=== PATIENT | female | born 1955 | race Caucasian/White ===

== ENCOUNTER → 2017-08-17 13:43 | Outpatient (CLI) | payer MEDICARE, SELFPAY ==
[2017-08-17 15:15] LABS: Amphetamine/Metha Screen,Urine Negative ng/mL (<1000); Barbiturates Screen,Urine Negative ng/mL (<200); Benzodiazepines Screen,Urine Negative ng/mL (200); Cannabinoid Screen,Urine Negative ng/mL (<50); Cocaine Screen,Urine Negative ng/g (<300); Methadone Screen,Urine Negative ng/mL (<300); Opiate Screen,Urine Positive ng/mL (<300); Phencyclidine Screen,Urine Negative ng/mL (<25)
[2017-08-26 13:13] LABS: Oxycodone (GC/MS) 2680 ng/mL (Cutoff=100)
[2017-08-27 17:06] LABS: Opiates Negative (Cutoff=100); Oxymorphone (GC/MS) 740 ng/mL (Cutoff=100)
== END ==
PROVIDERS: PCP Family Medicine; Visit Provider Anesthesiology
DX: Z79.899 Other long term (current) drug therapy (principal)
CPT/HCPCS: 80305; 80361; G0480

== ENCOUNTER → 2017-09-14 12:45 | Outpatient (POV) | payer MEDICARE, SELFPAY ==
[2017-09-14 12:59] VITALS: BP 128/77; PULSE 61; RESP 18; TEMP 36.2; O2SAT 96; BMI 49.8
--- NOTE | 2017-09-14 13:26 | HMH.PAINSOAP ---
[facility] Pain Management SOAP Note Subjective:: Patient is a pleasant 61-year-old white female who presents today to discuss medication refills. Patient is being treated for pain secondary to degenerative disc disease lumbar spine and bilateral knee arthritis. Patient has had a right knee replacement. Patient has also had back surgery in the past. She is currently being medically managed with Percocet 5 mg 1 p.o. 4 times daily. She states that this decreases her pain up to 70%. She denies any side effects to the medication. Patient is currently weaning herself off of her gabapentin due to involuntary twitching along with ineffectiveness towards her pain. Patient is also off her Lorazepam as of now. Patient is having a little bit of trouble at nighttime with sleeping. Patient has also weaned herself off her amitriptyline. Patient states that the medication helps make her more functional however she realizes that she will never be completely out of pain. Patient is also being seen for potential back surgery in the next several months. Patient rates her pain a 7 out of 10 today. Patient also states she has numbness and tingling in her toes and she has a podiatry appointment to evaluate this. ROS General: no recent weight change, no fever, no sleep disturbances Respiratory: no cough, no shortness of air, no recurring pulmonary infections Cardiovascular/Peripheral Vascular: No chest pain, No palpitations, no edema, no shortness of breath. Gastrointestinal: no incontinence, normal bowel movements reported Genitourinary: no incontinence Musculoskeletal: Back pain, bilateral knee pain Psychiatric: normal mood/ affect, Neurological: [denies weakness in extremities], [denies balance issues] Objective:: Physical Exam General: Alert and oriented x3, no acute distress, pleasant and cooperative, [on room air] Lungs: Resps E/U, Symmetrical chest expansion, Eyes: PERRL Musculoskeletal: Flexion and extension of lumbar spine somewhat guarded secondary to pain, deep tendon reflexes normal, strength in upper and lower extremities [5/5], [abnormal gait noted] Neurological: speech clear, it security administrator equal, no gross sensory deficits Assessment:: Degenerative disc disease of lumbar spine, lumbar postlaminectomy syndrome, fibromyalgia, chronic pain syndrome, bilateral knee arthritis. Plan:: We will refill her Percocet 5 mg 1 p.o. 4 times daily. Will give her 2 prescriptions today. Patient's [facility] #[id number] reviewed and appropriate. Patient had a UDS last month that was appropriate. We will continue to monitor compliance. We will have her follow-up with us in [address] Valderrama is reviewed her chart and agrees with this plan of care. Patient has been prescribed a controlled substance after being counseled on the medication, medication safety, and possible side effects. [facility]EN report has been obtained and reviewed prior to prescription and found to be appropriate. Opioid contract was reviewed and signed by the patient, and that they have agreed to all of the terms set forth by our compliance program. This note was dictated using voice recognition software and may contain errors or omissions
--- NOTE | 2017-09-14 13:30 | P.CONS_ITS ---
[facility] Pain Management SOAP Note Subjective:: Patient is a pleasant 61-year-old white female who presents today to discuss medication refills. Patient is being treated for pain secondary to degenerative disc disease lumbar spine and bilateral knee arthritis. Patient has had a right knee replacement. Patient has also had back surgery in the past. She is currently being medically managed with Percocet 5 mg 1 p.o. 4 times daily. She states that this decreases her pain up to 70%. She denies any side effects to the medication. Patient is currently weaning herself off of her gabapentin due to involuntary twitching along with ineffectiveness towards her pain. Patient is also off her Lorazepam as of now. Patient is having a little bit of trouble at nighttime with sleeping. Patient has also weaned herself off her amitriptyline. Patient states that the medication helps make her more functional however she realizes that she will never be completely out of pain. Patient is also being seen for potential back surgery in the next several months. Patient rates her pain a 7 out of 10 today. Patient also states she has numbness and tingling in her toes and she has a podiatry appointment to evaluate this. ROS General: no recent weight change, no fever, no sleep disturbances Respiratory: no cough, no shortness of air, no recurring pulmonary infections Cardiovascular/Peripheral Vascular: No chest pain, No palpitations, no edema, no shortness of breath. Gastrointestinal: no incontinence, normal bowel movements reported Genitourinary: no incontinence Musculoskeletal: Back pain, bilateral knee pain Psychiatric: normal mood/ affect, Neurological: [denies weakness in extremities], [denies balance issues] Objective:: Physical Exam General: Alert and oriented x3, no acute distress, pleasant and cooperative, [ on room air] Lungs: Resps E/U, Symmetrical chest expansion, Eyes: PERRL Musculoskeletal: Flexion and extension of lumbar spine somewhat guarded secondary to pain, deep tendon reflexes normal, strength in upper and lower extremities [5/5], [abnormal gait noted] Neurological: speech clear, pattern stamper equal, no gross sensory deficits Assessment:: Degenerative disc disease of lumbar spine, lumbar postlaminectomy syndrome, fibromyalgia, chronic pain syndrome, bilateral knee arthritis. Plan:: We will refill her Percocet 5 mg 1 p.o. 4 times daily. Will give her 2 prescriptions today. Patient's [facility] #[id number] reviewed and appropriate. Patient had a UDS last month that was appropriate. We will continue to monitor compliance. We will have her follow-up with us in [address] Valderrama is reviewed her chart and agrees with this plan of care. Patient has been prescribed a controlled substance after being counseled on the medication, medication safety, and possible side effects. HAVEN report has been obtained and reviewed prior to prescription and found to be appropriate. Opioid contract was reviewed and signed by the patient, and that they have agreed to all of the terms set forth by our compliance program. This note was dictated using voice recognition software and may contain errors or omissions
== END ==
PROVIDERS: Family Provider Family Medicine; PCP Family Medicine; Visit Provider Clinical Nurse Specialist Family Health
DX: M51.36 Other intervertebral disc degeneration, lumbar region (principal)
CPT/HCPCS: 99212

== ENCOUNTER → 2017-10-05 15:24 | Outpatient (REF) | payer MEDICARE, SELFPAY | LOC: LAB 15:24 | PROVIDERS: Visit Provider Podiatrist | DX: B35.1 Tinea unguium (principal) | CPT/HCPCS: 87102; 87206; 87220 ==

== ENCOUNTER → 2017-11-04 14:16 | Outpatient (CLI) | payer MEDICARE, SELFPAY ==
[2017-11-04 18:39] LABS: Amphetamine/Metha Screen,Urine Negative ng/mL (<1000); Barbiturates Screen,Urine Negative ng/mL (<200); Benzodiazepines Screen,Urine Negative ng/mL (200); Cannabinoid Screen,Urine Negative ng/mL (<50); Cocaine Screen,Urine Negative ng/g (<300); Methadone Screen,Urine Negative ng/mL (<300); Opiate Screen,Urine Positive ng/mL (<300); Phencyclidine Screen,Urine Negative ng/mL (<25)
[2017-11-12 13:15] LABS: Oxycodone (GC/MS) 2040 ng/mL (Cutoff=100)
[2017-11-12 19:23] LABS: Opiates Negative (Cutoff=100); Oxymorphone (GC/MS) 725 ng/mL (Cutoff=100)
== END ==
PROVIDERS: Visit Provider Anesthesiology
DX: Z79.899 Other long term (current) drug therapy (principal)
CPT/HCPCS: 80305; 80361; 80365; G0480

== ENCOUNTER → 2017-11-29 13:37 | Outpatient (POV) | payer MEDICARE, SELFPAY ==
[2017-11-29 13:51] VITALS: BP 136/70; PULSE 62; RESP 20; TEMP 36.7; O2SAT 99; BMI 49.8
--- NOTE | 2017-11-29 15:33 | HMH.PAINSOAP ---
[facility] Pain Management SOAP Note Subjective:: She is a pleasant 61-year-old white female who presents today to discuss medication refills. Patient is being treated for pain secondary to degenerative disc disease of the lumbar spine and bilateral knee arthritis. Patient is currently being medically managed with Percocet 5 mg 1 p.o. 4 times daily. She states this decreases her pain up to 70%. She denies any side effects of medication. Patient has weaned herself off her gabapentin and her Lorazepam. Patient states the gabapentin caused involuntary twitching. Patient has tried and failed Cymbalta, amitriptyline, anti-inflammatories, medication. Patient rates her pain a 6 out of 10 today. Patient states she is having an acute gout flare. Patient has notable red swollen joints of the thumb. Patient states she has a history of gout. Patient is unable to get her primary care physician to have this evaluated. ROS General: no recent weight change, no fever, no sleep disturbances Respiratory: no cough, no shortness of air, no recurring pulmonary infections Cardiovascular/Peripheral Vascular: No chest pain, No palpitations, no edema, no shortness of breath. Gastrointestinal: no incontinence, normal bowel movements reported Genitourinary: no incontinence Musculoskeletal: Gout, back pain, bilateral knee pain Psychiatric: normal mood/ affect, [denies depression], [denies anxiety] Neurological: [denies weakness in extremities], [denies balance issues] Objective:: Physical Exam General: Alert and oriented x3, no acute distress, pleasant and cooperative, [on room air] Lungs: Resps E/U, Symmetrical chest expansion, Eyes: PERRL Musculoskeletal: Flexion and extension of lumbar spine somewhat guarded secondary to pain, deep tendon reflexes normal, strength in upper and lower extremities [5/5], [abnormal gait noted], noted red swollen joints of the left thumb. Neurological: speech clear, washroom operator equal, no gross sensory deficits Assessment:: Gout, degenerative disc disease of the lumbar spine, post lumbar postlaminectomy syndrome, fibromyalgia, chronic pain syndrome, bilateral knee arthritis Plan:: We will start the patient on Lyrica 75 mg 1 p.o. twice daily. We will start her with a 2 week prescription and see if this is effective for pain. She has tried and failed gabapentin, amitriptyline, Cymbalta. Patient had side effects to gabapentin. We will also refill her Percocet 5 mg 1 p.o. 4 times daily. Will give her 2 prescriptions today. Patient's [facility] #[id number] reviewed and appropriate. Patient's UDS reviewed and appropriate. We will follow-up with the patient in 3 months and we will reassess her symptoms at that time. Dr. Valderrama has reviewed this chart and agrees with this plan of care. We will also call her in colchicine 2 tabs of 0.6 mg now and then we will repeat 1 tab 1 hour later. No refills patient is also on allopurinol for gout. Patient has been prescribed a controlled substance after being counseled on the medication, medication safety, and possible side effects. HAVEN report has been obtained and reviewed prior to prescription and found to be appropriate. Opioid contract was reviewed and signed by the patient, and that they have agreed to all of the terms set forth by our compliance program. This note was dictated using voice recognition software and may contain errors or omissions
--- NOTE | 2017-11-29 15:37 | P.CONS_ITS ---
[facility] Pain Management SOAP Note Subjective:: She is a pleasant 61-year-old white female who presents today to discuss medication refills. Patient is being treated for pain secondary to degenerative disc disease of the lumbar spine and bilateral knee arthritis. Patient is currently being medically managed with Percocet 5 mg 1 p.o. 4 times daily. She states this decreases her pain up to 70%. She denies any side effects of medication. Patient has weaned herself off her gabapentin and her Lorazepam. Patient states the gabapentin caused involuntary twitching. Patient has tried and failed Cymbalta, amitriptyline, anti-inflammatories, medication. Patient rates her pain a 6 out of 10 today. Patient states she is having an acute gout flare. Patient has notable red swollen joints of the thumb. Patient states she has a history of gout. Patient is unable to get her primary care physician to have this evaluated. ROS General: no recent weight change, no fever, no sleep disturbances Respiratory: no cough, no shortness of air, no recurring pulmonary infections Cardiovascular/Peripheral Vascular: No chest pain, No palpitations, no edema, no shortness of breath. Gastrointestinal: no incontinence, normal bowel movements reported Genitourinary: no incontinence Musculoskeletal: Gout, back pain, bilateral knee pain Psychiatric: normal mood/ affect, [denies depression], [denies anxiety] Neurological: [denies weakness in extremities], [denies balance issues] Objective:: Physical Exam General: Alert and oriented x3, no acute distress, pleasant and cooperative, [ on room air] Lungs: Resps E/U, Symmetrical chest expansion, Eyes: PERRL Musculoskeletal: Flexion and extension of lumbar spine somewhat guarded secondary to pain, deep tendon reflexes normal, strength in upper and lower extremities [5/5], [abnormal gait noted], noted red swollen joints of the left thumb. Neurological: speech clear, plane tableman equal, no gross sensory deficits Assessment:: Gout, degenerative disc disease of the lumbar spine, post lumbar postlaminectomy syndrome, fibromyalgia, chronic pain syndrome, bilateral knee arthritis Plan:: We will start the patient on Lyrica 75 mg 1 p.o. twice daily. We will start her with a 2 week prescription and see if this is effective for pain. She has tried and failed gabapentin, amitriptyline, Cymbalta. Patient had side effects to gabapentin. We will also refill her Percocet 5 mg 1 p.o. 4 times daily. Will give her 2 prescriptions today. Patient's [facility] #[id number] reviewed and appropriate. Patient's UDS reviewed and appropriate. We will follow-up with the patient in 3 months and we will reassess her symptoms at that time. Dr. Valderrama has reviewed this chart and agrees with this plan of care. We will also call her in colchicine 2 tabs of 0.6 mg now and then we will repeat 1 tab 1 hour later. No refills patient is also on allopurinol for gout. Patient has been prescribed a controlled substance after being counseled on the medication, medication safety, and possible side effects. HAVEN report has been obtained and reviewed prior to prescription and found to be appropriate. Opioid contract was reviewed and signed by the patient, and that they have agreed to all of the terms set forth by our compliance program. This note was dictated using voice recognition software and may contain errors or omissions
== END ==
PROVIDERS: Family Provider Family Medicine; PCP Family Medicine; Visit Provider Clinical Nurse Specialist Family Health
DX: M17.0 Bilateral primary osteoarthritis of knee (principal); M54.16 Radiculopathy, lumbar region
CPT/HCPCS: 99212

== ENCOUNTER → 2018-01-24 13:53 | Outpatient (POV) | payer MEDICARE, SELFPAY ==
[2018-01-24 14:12] VITALS: BP 131/82; PULSE 57; RESP 18; O2SAT 98; BMI 49.8
--- NOTE | 2018-01-24 15:49 | HMH.PAINSOAP ---
[facility] Pain Management SOAP Note Subjective:: Is a pleasant 62 year white female who presents today to discuss medication refills. Patient is being treated for pain secondary to degenerative disc disease of lumbar spine and bilateral knee arthritis. Patient is currently being medically managed with Percocet 5 mg 1 p.o. 4 times daily. She states that this helps up to 60%. Patient was tried on a trial run of Lyrica and did extremely well with it however her insurance would not cover the medication. Patient has tried and failed gabapentin, Cymbalta, amitriptyline, anti-inflammatories and other medications. Patient rates her pain a 5 out of 10 today. ROS General: no recent weight change, no fever, no sleep disturbances Respiratory: no cough, no shortness of air, no recurring pulmonary infections Cardiovascular/Peripheral Vascular: No chest pain, No palpitations, no edema, no shortness of breath. Gastrointestinal: no incontinence, normal bowel movements reported Genitourinary: no incontinence Musculoskeletal: Back pain, bilateral knee pain Psychiatric: normal mood/ affect Neurological: [denies weakness in extremities], [denies balance issues] Objective:: Physical Exam General: Alert and oriented x3, no acute distress, pleasant and cooperative, [on room air] Lungs: Resps E/U, Symmetrical chest expansion Eyes: PERRL Musculoskeletal: Flexion and extension of lumbar spine somewhat guarded secondary to pain, deep tendon reflexes normal, strength in upper and lower extremities [5/5], [abnormal gait noted] Neurological: speech clear, steward/stewardess night equal, no gross sensory deficits Assessment:: Degenerative disc disease lumbar spine with postlaminectomy syndrome, fibromyalgia, chronic pain syndrome, bilateral knee arthritis Plan:: Patient is going to look into financial assistance as far as her Lyrica if she does get approved for that we will call in Lyrica 75 mg 1 p.o. twice daily for her I believe that this would be good given the efficacy of the medication. We will refill her Percocet 5 mg 1 p.o. 4 times daily we will give her 2 prescriptions today. Patient's [facility] #[id number] reviewed and appropriate. Patient's urine drug screen has been appropriate in the past. Patient denies any side effects to this medication. Dr. Valderrama has reviewed this chart and agrees with this plan of care. We will follow-up with this patient in 2 months. Patient and I did speak briefly on neuro stimulation. Patient has been prescribed a controlled substance after being counseled on the medication, medication safety, and possible side effects. HAVEN report has been obtained and reviewed prior to prescription and found to be appropriate. Opioid contract was reviewed and signed by the patient, and that they have agreed to all of the terms set forth by our compliance program. This note was dictated using voice recognition software and may contain errors or omissions
--- NOTE | 2018-01-24 15:53 | P.CONS_ITS ---
[facility] Pain Management SOAP Note Subjective:: Is a pleasant 62 year white female who presents today to discuss medication refills. Patient is being treated for pain secondary to degenerative disc disease of lumbar spine and bilateral knee arthritis. Patient is currently being medically managed with Percocet 5 mg 1 p.o. 4 times daily. She states that this helps up to 60%. Patient was tried on a trial run of Lyrica and did extremely well with it however her insurance would not cover the medication. Patient has tried and failed gabapentin, Cymbalta, amitriptyline, anti- inflammatories and other medications. Patient rates her pain a 5 out of 10 today. ROS General: no recent weight change, no fever, no sleep disturbances Respiratory: no cough, no shortness of air, no recurring pulmonary infections Cardiovascular/Peripheral Vascular: No chest pain, No palpitations, no edema, no shortness of breath. Gastrointestinal: no incontinence, normal bowel movements reported Genitourinary: no incontinence Musculoskeletal: Back pain, bilateral knee pain Psychiatric: normal mood/ affect Neurological: [denies weakness in extremities], [denies balance issues] Objective:: Physical Exam General: Alert and oriented x3, no acute distress, pleasant and cooperative, [ on room air] Lungs: Resps E/U, Symmetrical chest expansion Eyes: PERRL Musculoskeletal: Flexion and extension of lumbar spine somewhat guarded secondary to pain, deep tendon reflexes normal, strength in upper and lower extremities [5/5], [abnormal gait noted] Neurological: speech clear, strategic marketing manager equal, no gross sensory deficits Assessment:: Degenerative disc disease lumbar spine with postlaminectomy syndrome, fibromyalgia, chronic pain syndrome, bilateral knee arthritis Plan:: Patient is going to look into financial assistance as far as her Lyrica if she does get approved for that we will call in Lyrica 75 mg 1 p.o. twice daily for her I believe that this would be good given the efficacy of the medication. We will refill her Percocet 5 mg 1 p.o. 4 times daily we will give her 2 prescriptions today. Patient's [facility] #[id number] reviewed and appropriate. Patient's urine drug screen has been appropriate in the past. Patient denies any side effects to this medication. Dr. Valderrama has reviewed this chart and agrees with this plan of care. We will follow-up with this patient in 2 months. Patient and I did speak briefly on neuro stimulation. Patient has been prescribed a controlled substance after being counseled on the medication, medication safety, and possible side effects. HAVEN report has been obtained and reviewed prior to prescription and found to be appropriate. Opioid contract was reviewed and signed by the patient, and that they have agreed to all of the terms set forth by our compliance program. This note was dictated using voice recognition software and may contain errors or omissions
== END ==
PROVIDERS: Family Provider Family Medicine; PCP Family Medicine; Visit Provider Clinical Nurse Specialist Family Health
DX: M17.0 Bilateral primary osteoarthritis of knee; M96.1 Postlaminectomy syndrome, not elsewhere classified
CPT/HCPCS: 99212

== ENCOUNTER → 2018-03-28 12:53 | Outpatient (POV) | payer MEDICARE, SELFPAY ==
[2018-03-28 13:16] VITALS: BP 138/61; PULSE 60; RESP 18; O2SAT 98; BMI 49.6
--- NOTE | 2018-03-28 14:38 | HMH.PAINSOAP ---
[facility] Pain Management SOAP Note Subjective:: Patient is a pleasant 62-year-old white female who presents today for medication refills. Patient is being treated for pain secondary to degenerative disc disease of the lumbar spine and bilateral knee arthritis. Patient is being managed with Percocet 5 mg 1 p.o. 4 times daily. He states it helps up to 70%. Patient had a trial of Lyrica and did extremely well with it. She has been approved for the Lyrica assistance program. Patient has tried and failed gabapentin, Cymbalta, amitriptyline, anti-inflammatories and other medications. She rates her pain a 6 out of 10 today. Patient's [facility] #[id number] reviewed and appropriate. Patient states she does take Tylenol sometimes as well. ROS General: no recent weight change, no fever, no sleep disturbances Respiratory: no cough, no shortness of air, no recurring pulmonary infections Cardiovascular/Peripheral Vascular: No chest pain, No palpitations, no edema, no shortness of breath. Gastrointestinal: no incontinence, normal bowel movements reported Genitourinary: no incontinence Musculoskeletal: Back pain, leg pain, bilateral knee pain Psychiatric: normal mood/ affect, Neurological: [denies weakness in extremities], [denies balance issues] Objective:: Physical Exam General: Alert and oriented x3, no acute distress, pleasant and cooperative, [on room air] Lungs: Resps E/U, Symmetrical chest expansion, Eyes: PERRL Musculoskeletal: Flexion and extension of lumbar spine somewhat guarded secondary to pain, deep tendon reflexes normal, strength in upper and lower extremities [5/5], [abnormal gait noted] Neurological: speech clear, sexual assault counselor equal, no gross sensory deficits Assessment:: Degenerative disc disease of the lumbar spine with postlaminectomy syndrome, fibromyalgia, chronic pain syndrome, bilateral knee arthritis Plan:: We will refill the patient's Percocet 5 mg 1 p.o. 4 times daily and give HER-2 months worth of prescriptions. We will also call in Lyrica 75 mg 1 p.o. twice daily for the patient we will give her several refills on this due to the assistance program. I will follow-up with the patient in [address] Valderrama has reviewed this chart and agrees with this plan of care. Patient has been prescribed a controlled substance after being counseled on the medication, medication safety, and possible side effects. HAVEN report has been obtained and reviewed prior to prescription and found to be appropriate. Opioid contract was reviewed and signed by the patient, and that they have agreed to all of the terms set forth by our compliance program. This note was dictated using voice recognition software and may contain errors or omissions
--- NOTE | 2018-03-28 14:41 | P.CONS_ITS ---
[facility] Pain Management SOAP Note Subjective:: Patient is a pleasant 62-year-old white female who presents today for medication refills. Patient is being treated for pain secondary to degenerative disc disease of the lumbar spine and bilateral knee arthritis. Patient is being managed with Percocet 5 mg 1 p.o. 4 times daily. He states it helps up to 70%. Patient had a trial of Lyrica and did extremely well with it. She has been approved for the Lyrica assistance program. Patient has tried and failed gabapentin, Cymbalta, amitriptyline, anti-inflammatories and other medications. She rates her pain a 6 out of 10 today. Patient's HAVEN #[id number] reviewed and appropriate. Patient states she does take Tylenol sometimes as well. ROS General: no recent weight change, no fever, no sleep disturbances Respiratory: no cough, no shortness of air, no recurring pulmonary infections Cardiovascular/Peripheral Vascular: No chest pain, No palpitations, no edema, no shortness of breath. Gastrointestinal: no incontinence, normal bowel movements reported Genitourinary: no incontinence Musculoskeletal: Back pain, leg pain, bilateral knee pain Psychiatric: normal mood/ affect, Neurological: [denies weakness in extremities], [denies balance issues] Objective:: Physical Exam General: Alert and oriented x3, no acute distress, pleasant and cooperative, [on room air] Lungs: Resps E/U, Symmetrical chest expansion, Eyes: PERRL Musculoskeletal: Flexion and extension of lumbar spine somewhat guarded sec ondary to pain, deep tendon reflexes normal, strength in upper and lower extremities [5/5], [abnormal gait noted] Neurological: speech clear, powerhouse mechanic helper equal, no gross sensory deficits Assessment:: Degenerative disc disease of the lumbar spine with postlaminectomy syndrome, fibromyalgia, chronic pain syndrome, bilateral knee arthritis Plan:: We will refill the patient's Percocet 5 mg 1 p.o. 4 times daily and give HER-2 months worth of prescriptions. We will also call in Lyrica 75 mg 1 p.o. twice daily for the patient we will give her several refills on this due to the assistance program. I will follow-up with the patient in [address] Valderrama has reviewed this chart and agrees with this plan of care. Patient has been prescribed a controlled substance after being counseled on the medication, medication safety, and possible side effects. HAVEN report has been obtained and reviewed prior to prescription and found to be appropriate. Opioid contract was reviewed and signed by the patient, and that they have agreed to all of the terms set forth by our compliance program. This note was dictated using voice recognition software and may contain errors or omissions
== END ==
PROVIDERS: Family Provider Family Medicine; PCP Family Medicine; Visit Provider Clinical Nurse Specialist Family Health
DX: M51.36 Other intervertebral disc degeneration, lumbar region (principal); M96.1 Postlaminectomy syndrome, not elsewhere classified; M79.7 Fibromyalgia; G89.4 Chronic pain syndrome; M17.0 Bilateral primary osteoarthritis of knee
CPT/HCPCS: 99213

== ENCOUNTER → 2018-05-31 16:21 | Outpatient (CLI) | payer MEDICARE, SELFPAY ==
[2018-05-31 16:56] LABS: Amphetamine/Metha Screen,Urine Negative ng/mL (<1000); Barbiturates Screen,Urine Negative ng/mL (<200); Benzodiazepines Screen,Urine Negative ng/mL (<200); Cannabinoid Screen,Urine Negative ng/mL (<50); Cocaine Screen,Urine Negative ng/mL (<300); Methadone Screen,Urine Negative ng/mL (<300); Opiate Screen,Urine Positive ng/mL (<300); Phencyclidine Screen,Urine Negative ng/mL (<25)
[2018-06-08 11:14] LABS: Oxycodone (GC/MS) 454 ng/mL (Cutoff=100)
[2018-06-08 12:53] LABS: Opiates Negative (Cutoff=100); Oxymorphone (GC/MS) 209 ng/mL (Cutoff=100)
== END ==
PROVIDERS: Visit Provider Anesthesiology
DX: Z79.899 Other long term (current) drug therapy (principal)
CPT/HCPCS: 80305; 80361; 80365; G0480

== ENCOUNTER → 2018-06-27 13:36 | Outpatient (POV) | payer MEDICARE, SELFPAY ==
[2018-06-27 14:18] VITALS: BP 141/60; PULSE 60; RESP 18; O2SAT 98; BMI 49.2
--- NOTE | 2018-06-27 14:35 | P.CONS_ITS ---
[facility] Pain Management SOAP Note Subjective:: Patient is a pleasant 62-year-old white female who presents today for medication refills. She is being treated for pain secondary to degenerative disc disease lumbar spine with lumbar radiculopathy and bilateral knee arthritis. She is being managed with Percocet 5 mg 1 p.o. 4 times daily. She is also been on Lyrica and has done extremely well with it and has recently been accepted to their Lyrica assistance program. Patient was on 75 mg 1 p.o. twice daily and did well with this. She rates her pain today an 8 out of 10 she states is increased due to her Lipitor use and the weather. ROS General: no recent weight change, no fever, no sleep disturbances Respiratory: no cough, no shortness of air, no recurring pulmonary infections Cardiovascular/Peripheral Vascular: No chest pain, No palpitations, no edema, no shortness of breath. Gastrointestinal: no incontinence, normal bowel movements reported Genitourinary: no incontinence Musculoskeletal: Back pain, leg pain, knee pain Psychiatric: normal mood/ affect, Neurological: [denies weakness in extremities], [denies balance issues] Objective:: Physical Exam General: Alert and oriented x3, no acute distress, pleasant and cooperative, [on room air] Lungs: Resps E/U, Symmetrical chest expansion, Eyes: PERRL Musculoskeletal: Flexion and extension of lumbar spine somewhat guarded secondary to pain, deep tendon reflexes normal, strength in upper and lower extremities [5/5], [abnormal gait noted] Neurological: speech clear, cleat layer equal, no gross sensory deficits Assessment:: Degenerative disc disease lumbar spine with lumbar radiculopathy and post laminectomy syndrome, fibromyalgia, chronic pain syndrome, bilateral knee arthritis Plan:: We will refill the patient's Percocet 5 mg 1 p.o. 4 times daily and give her 2 months worth of prescriptions we will also give her Lyrica 75 mg 1 p.o. twice daily. I will follow-up with the patient in 3 months and reassess her symptoms at that time. Patient's been instructed to call the office if she has any issues prior to her next appointment. Dr. Valderrama is reviewed this chart and agrees with this plan of care. Patient has been prescribed a controlled substance after being counseled on the medication, medication safety, and possible side effects. HAVEN report has been obtained and reviewed prior to prescription and found to be appropriate. Opioid contract was reviewed and signed by the patient, and that they have agreed to all of the terms set forth by our compliance program. This note was dictated using voice recognition software and may contain errors or omissions
== END ==
PROVIDERS: PCP Family Medicine; Visit Provider Clinical Nurse Specialist Family Health
DX: M51.16 Intervertebral disc disorders with radiculopathy, lumbar region (principal); M96.1 Postlaminectomy syndrome, not elsewhere classified; M79.18 Myalgia, other site; G89.4 Chronic pain syndrome; M17.0 Bilateral primary osteoarthritis of knee
CPT/HCPCS: 99213

== ENCOUNTER → 2018-09-01 10:04 | Outpatient (CLI) | payer MEDICARE, SELFPAY ==
[2018-09-01 14:33] LABS: Amphetamine/Metha Screen,Urine Negative ng/mL (<1000); Barbiturates Screen,Urine Negative ng/mL (<200); Benzodiazepines Screen,Urine Negative ng/mL (<200); Cannabinoid Screen,Urine Negative ng/mL (<50); Cocaine Screen,Urine Negative ng/mL (<300); Methadone Screen,Urine Negative ng/mL (<300); Opiate Screen,Urine Positive ng/mL (<300); Phencyclidine Screen,Urine Negative ng/mL (<25)
[2018-09-06 10:14] LABS: Oxycodone (GC/MS) 1500 ng/mL (Cutoff=100)
[2018-09-06 10:38] LABS: Opiates Negative (Cutoff=100); Oxymorphone (GC/MS) 479 ng/mL (Cutoff=100)
== END ==
PROVIDERS: Visit Provider Clinical Nurse Specialist Family Health
DX: Z79.899 Other long term (current) drug therapy (principal)
CPT/HCPCS: 80305; 80361; 80365; G0480

== ENCOUNTER → 2018-09-19 13:46 | Outpatient (POV) | payer MEDICARE, SELFPAY ==
[2018-09-19 14:03] VITALS: BP 122/45; PULSE 59; RESP 18; O2SAT 98; BMI 49.6
--- NOTE | 2018-09-19 14:19 | HMH.PAINSOAP ---
[facility] Pain Management SOAP Note Subjective:: Patient is a very pleasant 62-year-old white female who presents today for medication refills. She is being treated for pain secondary to degenerative disc disease lumbar spine with lumbar radiculopathy and bilateral knee arthritis. She is being managed with Percocet 5 mg 1 p.o. 4 times daily. Patient states that helps with her pain in the back however the burning in her feet is gotten much worse. She is recently undergone a nerve conduction study. We do not have any results of that yet. Patient has had good success with Lyrica in the past. Patient would like to be accepted to the Lyrica distance program. She was on Lyrica 75 mg 1 p.o. twice daily. She rates the pain a 5 out of 10 today. ROS General: no recent weight change, no fever, no sleep disturbances Respiratory: no cough, no shortness of air, no recurring pulmonary infections Cardiovascular/Peripheral Vascular: No chest pain, No palpitations, no edema, no shortness of breath. Gastrointestinal: no incontinence, normal bowel movements reported Genitourinary: no incontinence Musculoskeletal: Back pain, new leg pain, knee pain, foot pain Psychiatric: normal mood/ affect Neurological: [denies weakness in extremities], [denies balance issues] Objective:: Physical Exam General: Alert and oriented x3, no acute distress, pleasant and cooperative, [on room air] Lungs: Resps E/U, Symmetrical chest expansion, Eyes: PERRL Musculoskeletal: Flexion and extension of lumbar spine somewhat guarded secondary to pain, deep tendon reflexes normal, strength in upper and lower extremities [5/5], [abnormal gait noted] Neurological: speech clear, 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 4 times daily and give her 2 months worth of medication. We will also give her Lyrica 75 mg 1 p.o. twice daily. We will follow-up with the patient in 3 months and reassess her symptoms at that time she is been instructed to call the office if she has any issues prior to her next appointment. Patient has been prescribed a controlled substance after being counseled on the medication, medication safety, and possible side effects. HAVEN report has been obtained and reviewed prior to prescription and found to be appropriate. Opioid contract was reviewed and signed by the patient, and that they have agreed to all of the terms set forth by our compliance program. Dr. Valderrama has reviewed this note and agrees with this plan of care. This note was dictated using voice recognition software and may contain errors or omissions
== END ==
PROVIDERS: PCP Family Medicine; Visit Provider Clinical Nurse Specialist Family Health
DX: M51.16 Intervertebral disc disorders with radiculopathy, lumbar region (principal); M96.1 Postlaminectomy syndrome, not elsewhere classified; M79.7 Fibromyalgia; G89.4 Chronic pain syndrome; M13.862 Other specified arthritis, left knee; M13.861 Other specified arthritis, right knee
CPT/HCPCS: 99213

== ENCOUNTER → 2018-11-08 09:03 | Outpatient (CLI) | payer MEDICARE, SELFPAY ==
--- NOTE | 2018-11-08 09:09 | XR_ITS ---
XR foot wt bearing RT 3V HISTORY: ITS.REASON: pain ORDERING PHYSICIAN: Sada Villalobos DPM PATIENT AGE: 62 years COMPARISON: None FINDINGS: There are mild osteoarthritic changes of the naviculocuneiform joint. Nonspecific cortical lucency is noted in the mid shaft of the first metatarsal. No fracture or dislocation. There is a prominent calcaneal spur at 8 mm. IMPRESSION: 1. Mild degenerative change. 2. Nonspecific cortical lucency of the mid shaft of the first metatarsal medially and laterally.
--- NOTE | 2018-11-08 09:09 | XR_ITS ---
XR foot wt bearing LT 3V HISTORY: ITS.REASON: pain ORDERING PHYSICIAN: Sada Villalobos DPM PATIENT AGE: 62 years COMPARISON: None FINDINGS: No fracture or dislocation. No lytic or blastic change. There is normal mineralization.. Bone spurs present at the plantar surface of the calcaneus at 7 mm. Well-circumscribed calcific densities are present at the Achilles insertion consistent with enthesophytes. There is some mild thickening of the Achilles tendon proximal to this area. IMPRESSION: 1. No acute finding. 2. Mild thickening of the Achilles tendon with fragmented enthesophyte at the Achilles insertion which could be seen with tendinitis
== END ==
PROVIDERS: PCP Family Medicine; Visit Provider Podiatrist
DX: M79.672 Pain in left foot (principal); M79.671 Pain in right foot
CPT/HCPCS: 73630

== ENCOUNTER → 2018-12-27 10:36 | Outpatient (POV) | payer MEDICARE, SELFPAY ==
[2018-12-27 10:38] VITALS: BP 125/58; PULSE 90; RESP 18; O2SAT 98; BMI 42.9
--- NOTE | 2018-12-27 11:02 | HMH.PAINSOAP ---
[facility] Pain Management SOAP Note Subjective:: Patient is a pleasant 62-year-old white female who presents today for medication refills. She is being treated for pain secondary to degenerative disc disease lumbar spine with lumbar radiculopathy and bilateral knee arthritis. She has been managed with Percocet 5 mg 1 p.o. 4 times daily. Patient denies any side effects to medications. The patient was also prescribed Lyrica 75 mg 1 p.o. twice daily. She is currently working with the Lyrica assistance program. Rates her pain a 8 out of 10 today. The patient says that her knee pain is somewhat better, but it is more back pain today. She also says that she has increased burning in her feet which is gotten much worse since she has been able to get her Lyrica refilled. She says she has tried gabapentin in the past and it has not been effective. She is continuing a home stretching program. [facility] #[id number] has been reviewed and is appropriate. ROS General: no recent weight change, no fever, no sleep disturbances Respiratory: no cough, no shortness of air, no recurring pulmonary infections Cardiovascular/Peripheral Vascular: No chest pain, No palpitations, no edema, no shortness of breath. Gastrointestinal: no incontinence, normal bowel movements reported Genitourinary: no incontinence Musculoskeletal: Back pain, knee pain Psychiatric: normal mood/ affect, [denies depression], [denies anxiety] Neurological: [denies weakness in extremities], [denies balance issues] Objective:: Physical Exam General: Alert and oriented x3, no acute distress, pleasant and cooperative, [on room air] Lungs: Resps E/U, Symmetrical chest expansion, Eyes: PERRL Musculoskeletal: Flexion and extension of lumbar spine spine somewhat guarded secondary to pain, deep tendon reflexes normal, strength in upper and lower extremities [5/5], [abnormal gait noted] Neurological: speech clear, gun stock 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 4 times daily and give her 2 months worth of medication. She can filler picker her third month in the interim. We will also order the patient Voltaren gel 1% 4 g topically twice daily. We will schedule her for an appointment in 3 months. She has been instructed to call the office if she has any concerns prior to her next appointment. Patient has been prescribed a controlled substance after being counseled on the medication, medication safety, and possible side effects. HAVEN report has been obtained and reviewed prior to prescription and found to be appropriate. Opioid contract was reviewed and signed by the patient, and that they have agreed to all of the terms set forth by our compliance program. Dr. Valderrama has reviewed this note and agrees with this plan of care. This note was dictated using voice recognition software and may contain errors or omissions
--- NOTE | 2018-12-27 11:06 | P.CONS_ITS ---
[facility] Pain Management SOAP Note Subjective:: Patient is a pleasant 62-year-old white female who presents today for medication refills. She is being treated for pain secondary to degenerative disc disease lumbar spine with lumbar radiculopathy and bilateral knee arthritis. She has been managed with Percocet 5 mg 1 p.o. 4 times daily. Patient denies any side effects to medications. The patient was also prescribed Lyrica 75 mg 1 p.o. twice daily. She is currently working with the Lyrica assistance program. Rates her pain a 8 out of 10 today. The patient says that her knee pain is somewhat better, but it is more back pain today. She also says that she has increased burning in her feet which is gotten much worse since she has been able to get her Lyrica refilled. She says she has tried gabapentin in the past and it has not been effective. She is continuing a home stretching program. [facility] #[id number] has been reviewed and is appropriate. ROS General: no recent weight change, no fever, no sleep disturbances Respiratory: no cough, no shortness of air, no recurring pulmonary infections Cardiovascular/Peripheral Vascular: No chest pain, No palpitations, no edema, no shortness of breath. Gastrointestinal: no incontinence, normal bowel movements reported Genitourinary: no incontinence Musculoskeletal: Back pain, knee pain Psychiatric: normal mood/ affect, [denies depression], [denies anxiety] Neurological: [denies weakness in extremities], [denies balance issues] Objective:: Physical Exam General: Alert and oriented x3, no acute distress, pleasant and cooperative, [on room air] Lungs: Resps E/U, Symmetrical chest expansion, Eyes: PERRL Musculoskeletal: Flexion and extension of lumbar spine spine somewhat guarded secondary to pain, deep tendon reflexes normal, strength in upper and lower extremities [5/5], [abnormal gait noted] Neurological: speech clear, payroll assistant equal, no gross sensory deficits Assessment:: Degenerative disc disease lumbar spine with lumbar radiculopathy and postlaminectomy syndrome, fibromyalgia, chronic pain syndrome, bilateral knee arthritis, neuropathy Plan:: We will refill the patient's Percocet 5 mg 1 p.o. 4 times daily and give her 2 months worth of medication. She can lease picker her third month in the interim. We will also order the patient Voltaren gel 1% 4 g topically twice daily. We will schedule her for an appointment in 3 months. She has been instructed to call the office if she has any concerns prior to her next appointment. Patient has been prescribed a controlled substance after being counseled on the medication, medication safety, and possible side effects. HAVEN report has been obtained and reviewed prior to prescription and found to be appropriate. Opioid contract was reviewed and signed by the patient, and that they have agreed to all of the terms set forth by our compliance program. Dr. Valderrama has reviewed this note and agrees with this plan of care. This note was dictated using voice recognition software and may contain errors or omissions
== END ==
PROVIDERS: PCP Psychiatry & Neurology Psychiatry; Visit Provider Clinical Nurse Specialist Family Health
DX: M51.16 Intervertebral disc disorders with radiculopathy, lumbar region (principal); M96.1 Postlaminectomy syndrome, not elsewhere classified; M79.18 Myalgia, other site; G89.29 Other chronic pain; M17.0 Bilateral primary osteoarthritis of knee
CPT/HCPCS: 99212

== ENCOUNTER → 2019-03-21 11:26 | Outpatient (POV) | payer MEDICARE, SELFPAY ==
[2019-03-21 11:52] VITALS: BP 109/68; PULSE 58; RESP 18; O2SAT 98; BMI 47.9
[2019-03-21 13:02] LABS: Amphetamine/Metha Screen,Urine Negative ng/mL (<1000); Barbiturates Screen,Urine Negative ng/mL (<200); Benzodiazepines Screen,Urine Negative ng/mL (<200); Cannabinoid Screen,Urine Negative ng/mL (<50); Cocaine Screen,Urine Negative ng/mL (<300); Methadone Screen,Urine Negative ng/mL (<300); Opiate Screen,Urine Positive ng/mL (<300); Phencyclidine Screen,Urine Negative ng/mL (<25)
[2019-03-25 05:08] LABS: Oxycodone (GC/MS) >3000 ng/mL (Cutoff=100)
[2019-03-25 18:02] LABS: Opiates Negative (Cutoff=100); Oxymorphone (GC/MS) 801 ng/mL (Cutoff=100)
--- NOTE | 2019-04-11 11:51 | HMH.PAINSOAP ---
[facility] Pain Management SOAP Note Subjective:: Patient is a pleasant 63-year-old white female who presents today for medication refills. She is being treated for pain secondary to degenerative disc disease lumbar spine with lumbar radiculopathy and bilateral knee arthritis. She has been managed with Percocet 5 mg 1 p.o. 4 times daily. Patient denies any side effects to medications. The patient was also prescribed Lyrica 75 mg 1 p.o. twice daily at one time and it worked well for her. Now that it is going generic she is interested in moving forward with being prescribed this. She rates her pain a 7 out of 10.She says she has tried gabapentin in the past and it has not been effective. She is continuing a home stretching program. Haven has been reviewed and is appropriate. ROS General: no recent weight change, no fever, no sleep disturbances Respiratory: no cough, no shortness of air, no recurring pulmonary infections Cardiovascular/Peripheral Vascular: No chest pain, No palpitations, no edema, no shortness of breath. Gastrointestinal: no incontinence, normal bowel movements reported Genitourinary: no incontinence Musculoskeletal: Back pain, knee pain Psychiatric: normal mood/ affect, [denies depression], [denies anxiety] Neurological: [denies weakness in extremities], [denies balance issues] Objective:: Physical Exam General: Alert and oriented x3, no acute distress, pleasant and cooperative, [on room air] Lungs: Resps E/U, Symmetrical chest expansion, [CTA bilateral] Eyes: PERRL Musculoskeletal: Flexion and extension of lumbar spine somewhat guarded secondary to pain, deep tendon reflexes normal, strength in upper and lower extremities [5/5], [abnormal gait noted] Neurological: speech clear, facing machine operator equal, no gross sensory deficits Assessment:: degenerative disc disease lumbar spine with lumbar radiculopathy and bilateral osteoarthritis of the knees Plan:: We will refill her Percocet 5 mg 1 p.o. 3 times daily we will follow-up with the patient in 3 months reassess her symptoms at that time she will receive 2 prescriptions today and she can pick her third one up in the interim. Dr. Valderrama has reviewed this note and agrees with this plan of care. This note was dictated using voice recognition software and may contain errors or omissions Patient has been prescribed a controlled substance after being counseled on the medication, medication safety, and possible side effects. HAVEN report has been obtained and reviewed prior to prescription and found to be appropriate. Opioid contract was reviewed and signed by the patient, and that they have agreed to all of the terms set forth by our compliance program. [facility] History I have reviewed the patient's past medical history: Yes Medical History: Reports:: Gastroesophageal Reflux Disease(GERD), Hypertension Denies:: Asthma, Cancer, Chronic Obstructive Pulmonary Disease (COPD), Diabetes Mellitus Type 1 *Have you ever received a pneumonia vaccine?: Yes *Have you received a flu vaccine this season?: Yes Other Medical History: Reports: Fibromyalgia, Hypothyroidism, Other Laterality Cases: Other Surgeries: Yes: Appendectomy, Cholecystectomy, Hysterectomy-Total, Sinus Surgery, Other Amputation: No Fractures: Yes (Right Foot ) - *Social History Smoking Status: Never smoker # Packs/Day (cigarettes): 0 #Yrs smoked (if former smoker): 0 Alcohol Intake: never Alcohol Intake Frequency:: other *Occupational Status:: other *Travel in the last 8 weeks: None Family Hx:: Stroke, Cancer, Hypertension
--- NOTE | 2019-04-11 11:54 | P.CONS_ITS ---
[facility] Pain Management SOAP Note Subjective:: Patient is a pleasant 63-year-old white female who presents today for medication refills. She is being treated for pain secondary to degenerative disc disease lumbar spine with lumbar radiculopathy and bilateral knee arthritis. She has been managed with Percocet 5 mg 1 p.o. 4 times daily. Patient denies any side effects to medications. The patient was also prescribed Lyrica 75 mg 1 p.o. twice daily at one time and it worked well for her. Now that it is going generic she is interested in moving forward with being prescribed this. She rates her pain a 7 out of 10.She says she has tried gabapentin in the past and it has not been effective. She is continuing a home stretching program. Haven has been reviewed and is appropriate. ROS General: no recent weight change, no fever, no sleep disturbances Respiratory: no cough, no shortness of air, no recurring pulmonary infections Cardiovascular/Peripheral Vascular: No chest pain, No palpitations, no edema, no shortness of breath. Gastrointestinal: no incontinence, normal bowel movements reported Genitourinary: no incontinence Musculoskeletal: Back pain, knee pain Psychiatric: normal mood/ affect, [denies depression], [denies anxiety] Neurological: [denies weakness in extremities], [denies balance issues] Objective:: Physical Exam General: Alert and oriented x3, no acute distress, pleasant and cooperative, [on room air] Lungs: Resps E/U, Symmetrical chest expansion, [CTA bilateral] Eyes: PERRL Musculoskeletal: Flexion and extension of lumbar spine somewhat guarded secondary to pain, deep tendon reflexes normal, strength in upper and lower extremities [5/5], [abnormal gait noted] Neurological: speech clear, bleacher sulfite pulp equal, no gross sensory deficits Assessment:: degenerative disc disease lumbar spine with lumbar radiculopathy and bilateral osteoarthritis of the knees Plan:: We will refill her Percocet 5 mg 1 p.o. 3 times daily we will follow-up with the patient in 3 months reassess her symptoms at that time she will receive 2 prescriptions today and she can pick her third one up in the interim. Dr. Valderrama has reviewed this note and agrees with this plan of care. This note was dictated using voice recognition software and may contain errors or omissions Patient has been prescribed a controlled substance after being counseled on the medication, medication safety, and possible side effects. HAVEN report has been obtained and reviewed prior to prescription and found to be appropriate. Opioid contract was reviewed and signed by the patient, and that they have agreed to all of the terms set forth by our compliance program. [facility] History I have reviewed the patient's past medical history: Yes Medical History: Reports:: Gastroesophageal Reflux Disease(GERD), Hypertension Denies:: Asthma, Cancer, Chronic Obstructive Pulmonary Disease (COPD), Diabetes Mellitus Type 1 *Have you ever received a pneumonia vaccine?: Yes *Have you received a flu vaccine this season?: Yes Other Medical History: Reports: Fibromyalgia, Hypothyroidism, Other Laterality Cases: Other Surgeries: Yes: Appendectomy, Cholecystectomy, Hysterectomy-Total, Sinus Surgery, Other Amputation: No Fractures: Yes (Right Foot ) - *Social History Smoking Status: Never smoker # Packs/Day (cigarettes): 0 #Yrs smoked (if former smoker): 0 Alcohol Intake: never Alcohol Intake Frequency:: other *Occupational Status:: other *Travel in the last 8 weeks: None Family Hx:: Stroke, Cancer, Hypertension
== END ==
PROVIDERS: PCP Psychiatry & Neurology Psychiatry; Visit Provider Clinical Nurse Specialist Family Health
DX: M51.16 Intervertebral disc disorders with radiculopathy, lumbar region (principal); M17.0 Bilateral primary osteoarthritis of knee; Z79.899 Other long term (current) drug therapy
CPT/HCPCS: 80305; 80361; 80365; 99212; G0480

== ENCOUNTER → 2019-05-29 14:24 | Outpatient (POV) | payer MEDICARE, SELFPAY ==
[2019-05-29 14:54] VITALS: BP 132/77; PULSE 65; RESP 18; O2SAT 98; BMI 48.2
--- NOTE | 2019-05-30 08:36 | HMH.PAINSOAP ---
[facility] Pain Management SOAP Note Subjective:: Patient is a pleasant 63-year-old white female who presents today for follow-up. Patient is currently being medically managed with Percocet 5 mg 1 p.o. 4 times daily. She has been prescribed Lyrica in the past we are still trying to work with her to get Lyrica approved through the assistance program. I did fill out paperwork with her today. She rates her pain a 7 out of 10. Patient does have new lumbar MRI showing disc bulge along with facet arthropathy, ligamentum flavum hypertrophy, foraminal stenosis. Patient and I had a long discussion in regards to injective therapy I do believe she would benefit from this. Patient does have low back pain radiating into her legs and numbness and tingling all the way to her toes. ROS General: no recent weight change, no fever, no sleep disturbances Respiratory: no cough, no shortness of air, no recurring pulmonary infections Cardiovascular/Peripheral Vascular: No chest pain, No palpitations, no edema, no shortness of breath. Gastrointestinal: no new onset incontinence, normal bowel movements reported Genitourinary: no new onset incontinence Musculoskeletal: Back pain, leg pain Psychiatric: normal mood/ affect Neurological: [denies new onset weakness in extremities], [denies new onset balance issues] Objective:: Physical Exam General: Alert and oriented x3, no acute distress, pleasant and cooperative, [on room air] Lungs: Resps E/U, Symmetrical chest expansion, Eyes: PERRL Musculoskeletal: Flexion and extension of lumbar spine somewhat guarded secondary to pain, deep tendon reflexes normal, strength in upper and lower extremities [5/5], [abnormal gait noted] Neurological: speech clear, outdoor emergency care 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 4 times daily give her 2 months worth of medication. We will also continue to try to get her approved for Lyrica 75 mg 1 p.o. twice daily. Also set her up for a lumbar epidural steroid injection at L4-L5. I believe it would be beneficial for her. Patient started any anticoagulation therapy. She is continuing a home stretching program. Patient has been prescribed a controlled substance after being counseled on the medication, medication safety, and possible side effects. HAVEN report has been obtained and reviewed prior to prescription and found to be appropriate. Opioid contract was reviewed and signed by the patient, and that they have agreed to all of the terms set forth by our compliance program. Dr. Valderrama has reviewed this note and agrees with this plan of care. This note was dictated using voice recognition software and may contain errors or omissions [facility] History I have reviewed the patient's past medical history: Yes Medical History: Reports:: Gastroesophageal Reflux Disease(GERD), Hypertension Denies:: Asthma, Cancer, Chronic Obstructive Pulmonary Disease (COPD), Diabetes Mellitus Type 1 *Have you ever received a pneumonia vaccine?: Yes *Have you received a flu vaccine this season?: Yes Other Medical History: Reports: Fibromyalgia, Hypothyroidism, Other Laterality Cases: Other Surgeries: Yes: Appendectomy, Cholecystectomy, Hysterectomy-Total, Sinus Surgery, Other Amputation: No Fractures: Yes (Right Foot ) - *Social History Smoking Status: Never smoker # Packs/Day (cigarettes): 0 #Yrs smoked (if former smoker): 0 Alcohol Intake: never Alcohol Intake Frequency:: other *Occupational Status:: other *Travel in the last 8 weeks: None Family Hx:: Stroke, Cancer, Hypertension
== END ==
PROVIDERS: PCP Family Medicine; Visit Provider Clinical Nurse Specialist Family Health
DX: M51.16 Intervertebral disc disorders with radiculopathy, lumbar region (principal); M17.0 Bilateral primary osteoarthritis of knee
CPT/HCPCS: 99212

== ENCOUNTER → 2019-07-17 09:34 | Outpatient (POV) | payer MEDICARE, SELFPAY ==
[2019-07-17 09:56] VITALS: BP 142/71; PULSE 58; RESP 18; O2SAT 98; BMI 48.9
--- NOTE | 2019-07-17 10:02 | HMH.PAINSOAP ---
[facility] Pain Management SOAP Note Subjective:: Patient is a pleasant 63-year-old white female who presents today for follow-up after a lumbar epidural steroid injection. She is being treated for pain secondary to degenerative disc disease lumbar spine with lumbar radiculopathy symptoms, as well as spinal stenosis and foraminal stenosis with neurogenic claudication. Patient says that she got approximately 70% relief following the lumbar epidural steroid injection, but states that she only got approximately 2 days of relief. She says her pain has returned. She is having difficulty with ambulation as well as standing. She is having increased pain to her bilateral lower extremities. She says that her legs are weak and feel like they are going to give out . She rates her pain a 9 out of 10 today. She did discuss a possible minimally invasive lumbar decompression procedure with Dr. Valderrama during her previous injection. She would like to discuss the procedure today. Continuing with anti-inflammatories and a home stretching program. She is not on any anticoagulation therapy. Patient does say that she did not refill her medication on time. She says that she missed 5 days worth of medication. She is concerned that she will be without medication again. He was prescribed Percocet 5 mg 1 tablet p.o. 4 times daily. Her Shabbir #[id number] has been reviewed and is appropriate. Review of Systems General: No recent weight changes, no fever, no sleep disturbances Respiratory: No cough, no shortness of air, no recurring pulmonary infections Cardiovascular/peripheral vascular: No chest pain, no palpitations, no edema, no shortness of breath Gastrointestinal: No new onset incontinence, normal bowel movements reported Genitourinary: No new onset incontinence Musculoskeletal: Low back pain bilateral leg pain Psychiatric: Normal mood/affect Neurological: [Denies weakness in extremities], [denies balance issues] Objective:: Physical exam General: Alert and oriented x3, no acute distress, pleasant and cooperative, [on room air] Lungs: Respirations even and unlabored, symmetrical chest expansion Eyes: PERRL Musculoskeletal: Flexion and extension of lumbar spine somewhat guarded secondary to pain, deep tendon reflexes normal, strength in upper and lower extremities [5/5], [abnormal gait noted] Neurological: Speech clear, 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 She is ready to proceed with the procedure. We will schedule her for the mild procedure and see her back in the clinic following a mild procedure to reassess her symptoms. She has tried conservative therapies of injective therapies, physical therapy, oral agents, and anti-inflammatories. He has gotten little to no relief. Is not on any anticoagulation therapy. Patient has been instructed to contact clinic if she has any concerns before next appointment. We will also call the patient's Lyrica 75 mg 1 tablet p.o. twice daily in. Dr. Valderrama has reviewed this note and agrees with this plan of care. This note was dictated using voice recognition software and make contain errors or omissions. [facility] History I have reviewed the patient's past medical history: Yes Medical History: Reports:: Gastroesophageal Reflux Disease(GERD), Hyperlipidemia, Hypertension Denies:: Asthma, Cancer, Chronic Obstructive Pulmonary Disease (COPD), Diabetes Mellitus Type 1, Diabetes Mellitus Type 2, Seizures *Have you ever received a pneumonia vaccine?: Yes *Have you received a flu vaccine this season?: Yes Other Medical History: Reports: Fibromyalgia, Hypothyroidism, Other Laterality Cases: Left: Arthroscopy Knee, Right: Carpal Tunnel Release Other Surgeries: Yes: Appendectomy, Cholecystectomy, Hysterectomy-T
== END ==
PROVIDERS: PCP Family Medicine; Visit Provider Clinical Nurse Specialist Family Health
DX: M51.16 Intervertebral disc disorders with radiculopathy, lumbar region (principal); M48.062 Spinal stenosis, lumbar region with neurogenic claudication
CPT/HCPCS: 99212

== ENCOUNTER → 2019-08-15 10:16 | Outpatient (POV) | payer MEDICARE, SELFPAY ==
[2019-08-15 11:26] VITALS: BP 134/96; PULSE 89; RESP 18; O2SAT 99; BMI 30.9
--- NOTE | 2019-08-15 12:50 | HMH.PAINSOAP ---
[facility] Pain Management SOAP Note Subjective:: Patient is a pleasant 63-year-old white female who presents today for follow-up. Patient is awaiting a mild procedure she had some questions in regards to this procedure we recapped all of the information in regards to the procedure. Patient underwent an epidurogram and was deemed an appropriate candidate for a mild procedure. She does have significant stenosis at L4-L5 and L5-S1 as well as some at L3-L4. according to Dr. Valderrama epidural needle needs to be placed at L3-L4 as it is difficult to access L4-5 and L5-S1. Patient has difficulty with standing and walking. She finds herself leaning over for comfort and is unable to walk for long distances. She would like to move forward with the mild. ROS General: no recent weight change, no fever, no sleep disturbances Respiratory: no cough, no shortness of air, no recurring pulmonary infections Cardiovascular/Peripheral Vascular: No chest pain, No palpitations, no edema, no shortness of breath. Gastrointestinal: no new onset incontinence, normal bowel movements reported Genitourinary: no new onset incontinence Musculoskeletal: Back pain, leg pain Psychiatric: normal mood/ affect, [denies depression], [denies anxiety] Neurological: Weakness in bilateral lower extremities while walking or standing, [denies new onset balance issues] Objective:: Physical Exam General: Alert and oriented x3, no acute distress, pleasant and cooperative, [on room air] Lungs: Resps E/U, Symmetrical chest expansion, Eyes: PERRL Musculoskeletal: Flexion and extension of lumbar spine somewhat guarded secondary to pain, deep tendon reflexes normal, strength in upper and lower extremities [5/5], [abnormal gait noted] Neurological: speech clear, reexaminer equal, no gross sensory deficits Assessment:: Degenerative disc disease lumbar spine with lumbar radiculopathy symptoms, spinal stenosis, neurogenic claudication Plan:: We will plan a mild procedure for the patient. According to Dr. Valderrama notes she does have significant stenosis at L4-L5 and L5-S1 as well as some at L3-L4. He believes that she would benefit from a decompression at L3-L4, L5-S1. He also states that the epidural needle needs to be placed at L3-L4 as it is difficult to access L4-5 and L5-S1. Patient not on any anticoagulation therapy. I will follow-up with her after her mild procedure reassess her symptoms at that time she is been instructed to call the office if she has any issues prior to her next appointment. Dr. Valderrama has reviewed this note and agrees with this plan of care. This note was dictated using voice recognition software and may contain errors or omissions [facility] History I have reviewed the patient's past medical history: Yes Medical History: Reports:: Gastroesophageal Reflux Disease(GERD), Hyperlipidemia, Hypertension Denies:: Asthma, Cancer, Chronic Obstructive Pulmonary Disease (COPD), Diabetes Mellitus Type 1, Diabetes Mellitus Type 2, Seizures *Have you ever received a pneumonia vaccine?: Yes *Have you received a flu vaccine this season?: Yes Other Medical History: Reports: Fibromyalgia, Hypothyroidism, Other Laterality Cases: Left: Arthroscopy Knee, Right: Carpal Tunnel Release Other Surgeries: Yes: Appendectomy, Cholecystectomy, Hysterectomy-Total, Sinus Surgery, Other Amputation: No Fractures: Yes (Right Foot ) - *Social History Smoking Status: Never smoker # Packs/Day (cigarettes): 0 #Yrs smoked (if former smoker): 0 Alcohol Intake: never Alcohol Intake Frequency:: other *Occupational Status:: other Household Members: spouse *Travel in the last 8 weeks: None Family Hx:: Stroke, Cancer, Hypertension
== END ==
PROVIDERS: PCP Family Medicine; Visit Provider Clinical Nurse Specialist Family Health
DX: M51.16 Intervertebral disc disorders with radiculopathy, lumbar region (principal); M48.062 Spinal stenosis, lumbar region with neurogenic claudication; E78.5 Hyperlipidemia, unspecified; I10 Essential (primary) hypertension; K21.9 Gastro-esophageal reflux disease without esophagitis; Z87.39 Personal history of other diseases of the musculoskeletal system and connective tissue
CPT/HCPCS: 99212

== ENCOUNTER → 2019-10-02 15:39 | Outpatient (CLI) | payer MEDICARE, SELFPAY ==
--- NOTE | 2019-10-02 16:34 | XR_ITS ---
PROCEDURE: XR CHEST 2V CLINICAL HISTORY: ACUTE BRONCHITIS Cough and congestion COMPARISON: No exams were available for comparison FINDINGS: The cardiomediastinal silhouette and pulmonary vascularity are within normal limits. The lungs are clear without infiltrates, suspicious nodules, or pleural effusions. Mild degenerative changes in the thoracic spine. IMPRESSION: No acute findings. Dictated by: Sravan Mensah MD 10/02/2019 17:58 Electronically signed by Sravan Mensah MD in [place] 10/02/2019 17:58
[2019-10-02 18:46] LABS: Amphetamine/Metha Screen,Urine Negative ng/ml (<1000); Barbiturates Screen,Urine Negative ng/ml (<200)
[2019-10-02 18:47] LABS: Benzodiazepines Screen,Urine Negative ng/ml (<200); Cannabinoid Screen,Urine Negative ng/ml (<50)
[2019-10-02 18:48] LABS: Cocaine Screen,Urine Negative ng/ml (<300)
[2019-10-02 18:49] LABS: Methadone Screen,Urine Negative ng/ml (<300); Opiate Screen,Urine Negative ng/ml (<300)
[2019-10-02 18:50] LABS: Phencyclidine Screen,Urine Negative ng/ml (<25)
[2019-10-07 18:08] LABS: Oxycodone (GC/MS) 780 ng/mL (Cutoff=100)
[2019-10-07 20:46] LABS: Opiates Negative (Cutoff=100); Oxymorphone (GC/MS) 256 ng/mL (Cutoff=100)
== END ==
LOC: LAB 15:40 → RAD 16:31
PROVIDERS: PCP Family Medicine; Visit Provider Clinical Nurse Specialist Family Health
DX: Z79.899 Other long term (current) drug therapy (principal)
CPT/HCPCS: 71046; 80305; 80361; 80365; G0480

== ENCOUNTER → 2019-11-21 09:48 | Outpatient (POV) | payer MEDICARE, SELFPAY ==
[2019-11-21 09:55] VITALS: BP 152/87; PULSE 78; RESP 18; TEMP 36.7; O2SAT 99; BMI 37.8
[2019-11-21 10:17] VITALS: BP 152/98; PULSE 85; RESP 18; TEMP 36.6; O2SAT 99; BMI 38.6
--- NOTE | 2019-11-21 11:36 | HMH.PAINSOAP ---
[facility] Pain Management SOAP Note Subjective:: Patient is a pleasant 63-year-old white female who presents today to discuss mild procedure. Patient and I had a long discussion in regards to this she would like to move forward. I explained the risks and benefits. She is currently on narcotic medication. She states it helps somewhat. ROS General: no recent weight change, no fever, no sleep disturbances Respiratory: no cough, no shortness of air, no recurring pulmonary infections Cardiovascular/Peripheral Vascular: No chest pain, No palpitations, no edema, no shortness of breath. Gastrointestinal: no new onset incontinence, normal bowel movements reported Genitourinary: no new onset incontinence Musculoskeletal: Back pain, leg pain Psychiatric: normal mood/ affect Neurological: Weakness in bilateral lower extremities while walking, [denies new onset balance issues] Objective:: Physical Exam General: Alert and oriented x3, no acute distress, pleasant and cooperative, [on room air] Lungs: Resps E/U, Symmetrical chest expansion, Eyes: PERRL Musculoskeletal: Flexion and extension of lumbar spine somewhat guarded secondary to pain, deep tendon reflexes normal, strength in upper and lower extremities [5/5], [abnormal gait noted] patient has difficulty for standing or walking more than 5 minutes. Neurological: speech clear, yeast pumper equal, no gross sensory deficits Assessment:: Spinal stenosis with neurogenic claudication, degenerative disc disease lumbar spine with lumbar radiculopathy Plan:: We will move forward with the mild procedure. Patient is also continuing to take her Percocet she denies side effects to this medication. Dr. Valderrama will refill it at his next available time. Shabbir reviewed and appropriate. Urine drug screens have been appropriate Per Dr. Valderrama last note:She does have significant stenosis at L4-L5 and L5-S1 as well as some at L3-L4. I believe she would benefit from in-home evaluation of lumbar decompression at L3-L4, for about L5-S1. Epidural needle needs to be placed at L3-L4 as it is difficult to access L4-5 and L5-S1. We will follow-up with her in 2 weeks after this epidural steroid injection to see how she does with her pain symptoms and if she continues to have symptoms we will seek approval for minimally invasive lumbar decompression of L3-L4, L4-5 and L5-S1 bilaterally [facility] History I have reviewed the patient's past medical history: Yes Medical History: Reports:: Gastroesophageal Reflux Disease(GERD), Hyperlipidemia, Hypertension Denies:: Asthma, Cancer, Chronic Obstructive Pulmonary Disease (COPD), Diabetes Mellitus Type 1, Diabetes Mellitus Type 2, Seizures *Have you ever received a pneumonia vaccine?: Yes *Have you received a flu vaccine this season?: Yes Other Medical History: Reports: Fibromyalgia, Hypothyroidism, Other Laterality Cases: Left: Arthroscopy Knee, Right: Carpal Tunnel Release Other Surgeries: Yes: Appendectomy, Cholecystectomy, Hysterectomy-Total, Sinus Surgery, Other Amputation: No Fractures: Yes (Right Foot ) - *Social History Smoking Status: Never smoker # Packs/Day (cigarettes): 0 #Yrs smoked (if former smoker): 0 Alcohol Intake: never Alcohol Intake Frequency:: other *Occupational Status:: other Household Members: spouse *Travel in the last 8 weeks: None Family Hx:: Stroke, Cancer, Hypertension
== END ==
PROVIDERS: PCP Family Medicine; Visit Provider Clinical Nurse Specialist Family Health
DX: M48.062 Spinal stenosis, lumbar region with neurogenic claudication (principal); M51.16 Intervertebral disc disorders with radiculopathy, lumbar region
CPT/HCPCS: 99212

== ENCOUNTER → 2019-12-12 09:55 | Outpatient (CLI) | payer MEDICARE, SELFPAY ==
[2019-12-12 10:57] LABS: Anion Gap 9.3 mEq/L (5-15); Blood Urea Nitrogen 16 mg/dl (7-17); Calcium 9.4 mg/dl (8.4-10.2); Carbon Dioxide 28 mmol/L (22.0-30.0); Chloride 105 mmol/L (98-107); Estimated Glomerular Filt Rate 63 ml/min (>60); GFR (African American) 76 ML/MIN (>60); Glucose 118 mg/dl (74-100); Potassium 4.3 mmoL/L (3.5-5.1); Sodium 138 mmol/L (136-145)
[2019-12-12 11:05] LABS: Basophils % 0.3 % (0.1-2.0); Eosinophils % 0.1 % (0.1-12.0); Hematocrit 35.2 % (37.0-47.0); Hemoglobin 11.4 g/dL (12.2-16.2); Lymphocytes # 2.9 K/mm3 (0.7-4.5); Lymphocytes % 37.5 % (10-50); Mean Corpuscular HGB Conc 32.4 g/dL (31.8-35.4); Mean Corpuscular Hemoglobin 27.6 pg (27.0-31.2); Mean Corpuscular Volume 85.2 fl (81-99); Mean Platelet Volume 9.5 fl (7.4-10.4); Monocytes # 0.4 K/mm3 (0.1-1.0); Monocytes % 5.5 % (1.7-9.3); Neutrophils # 4.4 K/mm3 (1.8-7.8); Neutrophils % 56.6 % (37.0-80.0); Platelet Count 228 K/mm3 (142-424); Red Blood Count 4.13 M/mm3 (4.20-5.40); Red Cell Distribution Width 14.4 % (11.5-17.5); White Blood Count 7.7 K/mm3 (4.8-10.8)
[2019-12-12 11:24] LABS: Coronavirus 19 IgG Antibody Negative (Negative); Coronavirus 19 IgM Antibody Negative (Negative)
== END ==
PROVIDERS: Visit Provider Anesthesiology
DX: Z01.818 Encounter for other preprocedural examination (principal)
CPT/HCPCS: 36415; 80048; 85025; 86328

== ENCOUNTER 2019-12-13 09:08 | Day surgery (SDC) | payer MEDICARE, SELFPAY ==
--- NOTE | 2019-12-07 11:46 | SUR.PREOP ---
12/07/2019 @ 6511--PHONE CALL MADE TO PATIENT. PATIENT UNDERSTANDS THAT LAB WORK AND COVID TESTING NEEDS TO BE COMPLETED @ 0945 ON 12/12/2019. PATIENT UNDERSTANDS IF LAB WORK AND COVID-19 TESTS ARE NOT COMPLETED BY 12PM ON THAT DATE, THE SURGERY SCHEDULED WILL BE CANCELLED AND RESCHEDULED FOR ANOTHER TIME.
[2019-12-12 14:02] VITALS: BMI 49.8
[2019-12-13 09:31] VITALS: BP 149/58; PULSE 63; RESP 18; TEMP 36.2; O2SAT 98
[2019-12-13 13:45] VITALS: BP 145/73; PULSE 74; RESP 18; TEMP 36.6; O2SAT 98
--- NOTE | 2019-12-13 13:47 | P.OP_ITS ---
Date of procedure: 12/13/19 Pre-op Diagnosis:: Degenerative disc disease of lumbar spine with lumbar radiculopathy symptoms and spinal stenosis of lumbar spine with neurogenic claudication symptoms Post-op Diagnosis:: Same Procedure performed:: Minimally invasive lumbar decompression bilateral L3-L4, L4-5 and L5-S1 Surgeon:: Jose R Valderrama MD JAVASCRIPT ENGINEER:: Sajan Horton Anesthesia: MAC Estimated blood loss (mL): 5 Clinical Note:: Patient is a pleasant 64-year-old white female who we have been treating for low back pain with lumbar spinal stenosis and neurogenic claudication symptoms. She is failed all previous conservative therapy including physical therapy, injections and oral medications. She had significant increase in her pain symptoms after her last epidural steroid injections especially down her legs. Based on epidurogram she does have severe stenosis at the levels of L3-L4, L4-5 and L5-S1. This is also evident on MRI. We will do millimeter base of lumbar decompression of L3-L4, L4-5 and L5-S1 today. Operative findings:: None Operative note:: Informed consent was obtained and the risk and benefits of the procedure was explained to the patient. The patient was taken to the operating room and placed prone on the procedure table. The patient was prepped and draped in sterile fashion. C-arm fluoroscopy was used to view the lumbar spine. The skin and subcutaneous tissues were anesthetized using lidocaine. A epidural needle was inserted and advanced into the L3-L4 interspace. After confirmation of needle placement in the epidural space, dye was injected in a contralateral oblique view. There was an epidurogram seen at L3-L4, L4-5 and L5-S1. Significant stenosis was seen at L3-L4, L4-5 and L5-S1. The skin and subcutaneous tissues again were anesthetized using lidocaine. An incision was made and a access trocar was inserted and advanced to contact at the superior aspect of the L4 lamina on the left side. And a contralateral oblique view the side was viewed. Using a bone rongeur and tissue sculptor we debulked bone from the L3-L4, L4-5 and L5-S1 interspace on the left side. We then used the tissue sculptor to debulk ligament at the L3-L4, L4-5 and L5-S1 interspace on the left side. We then moved over to the right side and debulked bone and ligament from L3-L4, L4-5 and L5-S1 on the right side. There is opening of the stenosis at L3-L4, L4-5 and L5-S1 bilaterally. The access trocar was removed. A total of 3 mL's of dye was used. There is good spread of dye above and below this level as well. We injected 80 mg Depo-Medrol through the epidural needle. The epidural needle was removed and dressings were placed. This encounter for exam is for normal comparison and control in a clinical research program Patient was taken to recovery in stable condition. Patient was discharged home neurologically intact and with good relief of pain symptoms. Plan and disposition: We will follow-up with this patient in 2 weeks. Will reevaluate symptoms at that time. Condition: stable Disposition: PACU Complications:: None
[2019-12-13 14:00] VITALS: BP 139/73; PULSE 63; RESP 18; O2SAT 97
--- NOTE | 2019-12-13 14:02 | PC.NURSE ---
pt awakened, crying and disoriented talking about her father and asking if he was . Reoriented pt and provided comfort and support to pt, reassured her. Pt responded well, and quickly realized where she was and that she was dreaming.
[2019-12-13 14:10] VITALS: BP 147/60; PULSE 59; RESP 18; O2SAT 98
--- NOTE | 2019-12-13 14:24 | PC.NURSE ---
Correction of previous documentation of prescribed Antibiotic is Cipro not Bactrim.
[2019-12-13 14:30] VITALS: BP 143/81; PULSE 55; RESP 18; O2SAT 98
== END 2019-12-13 14:34 | disposition home or self-care (01) ==
LOC: OR 09:10
PROVIDERS: PCP Family Medicine; Visit Provider Anesthesiology
PROC: (CPT 0275T; principal; 2019-12-13 11:00)
DX: M51.16 Intervertebral disc disorders with radiculopathy, lumbar region (principal); M48.062 Spinal stenosis, lumbar region with neurogenic claudication; Z00.6 Encounter for examination for normal comparison and control in clinical research program; I10 Essential (primary) hypertension; E03.9 Hypothyroidism, unspecified; K21.9 Gastro-esophageal reflux disease without esophagitis; M79.18 Myalgia, other site; Z88.0 Allergy status to penicillin; Z88.2 Allergy status to sulfonamides; Z88.5 Allergy status to narcotic agent; Z88.8 Allergy status to other drugs, medicaments and biological substances; Z88.6 Allergy status to analgesic agent; Z79.899 Other long term (current) drug therapy
CPT/HCPCS: 0275T; 96374; C1889; J1040; J3370; Q9966

== ENCOUNTER → 2019-12-25 11:39 | Outpatient (POV) | payer MEDICARE, SELFPAY ==
--- NOTE | 2019-12-25 12:01 | P.CONS_ITS ---
[facility] Pain Management SOAP Note Subjective:: Patient is a 64-year-old white female who presents today for follow-up after her HI LD procedure. Patient states she is noticed no difference in her pain rating it a 7 out of 10. States that she has no increase in functionality at this time. Patient I discussed potential physical therapy and she is uninterested at this time. She is currently on Percocet and Lyrica she is not due any medication refills at this point. I discussed with her it could take some time to get improvement from her procedure. I will follow-up with her in 1 month and reassess. ROS General: no recent weight change, no fever, no sleep disturbances Respiratory: no cough, no shortness of air, no recurring pulmonary infections Cardiovascular/Peripheral Vascular: No chest pain, No palpitations, no edema, no shortness of breath. Gastrointestinal: no new onset incontinence, normal bowel movements reported Genitourinary: no new onset incontinence Musculoskeletal: Back pain, leg pain Psychiatric: normal mood/ affect, [denies depression], [denies anxiety] Neurological: [denies new onset weakness in extremities], [denies new onset balance issues] Systems Objective:: Physical Exam General: Alert and oriented x3, no acute distress, pleasant and cooperative, [on room air] Lungs: Resps E/U, Symmetrical chest expansion, Eyes: PERRL Musculoskeletal: Flexion and extension of lumbar spine somewhat guarded secondary to pain, deep tendon reflexes normal, strength in upper and lower extremities [5/5], [abnormal gait noted] Neurological: speech clear, housekeeper cleaning cooking equal, no gross sensory deficits Assessment:: Degenerative disc disease lumbar spine with lumbar radiculopathy symptoms spinal stenosis with lumbar neurogenic claudication symptoms Plan:: We will see the patient back in 1 month reassess her at that time. She is not on any medication that needs to be refilled at this time. She is been instructed to call the office if she has any issues prior to her next appointment. Dr. Valderrama has reviewed this note and agrees with this plan of care. This note was dictated using voice recognition software and may contain errors or omissions [facility] History I have reviewed the patient's past medical history: Yes Medical History: Reports:: Gastroesophageal Reflux Disease(GERD), Hyperlipidemia, Hypertension, MRSA (breast reduction 15-20 yrs ago) Denies:: Asthma, Cancer, Chronic Obstructive Pulmonary Disease (COPD), Diabetes Mellitus Type 1, Diabetes Mellitus Type 2, Internal Pacemaker, Seizures *Have you ever received a pneumonia vaccine?: No *Have you received a flu vaccine this season?: No Other Medical History: Reports: Fibromyalgia, Hypothyroidism, Other. Denies: Blood Transfusion Reaction Laterality Cases: Right: Arthroscopy Knee, Bilateral: Carpal Tunnel Release, Tonsillectomy Other Surgeries: Yes: Appendectomy, Cholecystectomy, Hysterectomy-Total, Sinus Surgery, Other. No: Pacemaker Amputation: No Fractures: Yes (Right Foot ) - *Social History Smoking Status: Never smoker # Packs/Day (cigarettes): 0 #Yrs smoked (if former smoker): 0 Alcohol Intake: never Alcohol Intake Frequency:: other *Occupational Status:: disabled Housing: house Household Members: spouse *Travel in the last 8 weeks: None Family Hx:: Cancer, Heart Attack
[2019-12-25 12:20] VITALS: BP 139/57; PULSE 63; RESP 18; O2SAT 97; BMI 48.9
== END ==
PROVIDERS: PCP Family Medicine; Visit Provider Clinical Nurse Specialist Family Health
DX: M51.16 Intervertebral disc disorders with radiculopathy, lumbar region (principal); M48.062 Spinal stenosis, lumbar region with neurogenic claudication
CPT/HCPCS: 99212

== ENCOUNTER → 2020-01-22 13:11 | Outpatient (POV) | payer MEDICARE, SELFPAY ==
[2020-01-22 13:21] VITALS: BP 128/59; PULSE 55; RESP 18; O2SAT 98; BMI 41.1
--- NOTE | 2020-01-22 13:30 | P.CONS_ITS ---
[facility] Pain Management SOAP Note Subjective:: Patient is a 64-year-old white female who presents today for follow-up. Patient states that her pain is getting worse she rates her pain a 7 out of 10 stating its waxing and waning but mostly constant. Patient is on Percocet and Lyrica which is not seeming to be as beneficial. Patient wants to see Dr. Johnson. We will send her for that. Patient has a had an MRI at [facility] recently. Patient's Shabbir reviewed and appropriate. Urine drug screens have been appropriate. ROS General: no recent weight change, no fever, no sleep disturbances Respiratory: no cough, no shortness of air, no recurring pulmonary infections Cardiovascular/Peripheral Vascular: No chest pain, No palpitations, no edema, no shortness of breath. Gastrointestinal: no new onset incontinence, normal bowel movements reported Genitourinary: no new onset incontinence Musculoskeletal: Back pain, leg pain Psychiatric: normal mood/ affect Neurological: [denies new onset weakness in extremities], [denies new onset balance issues] Objective:: Physical Exam General: Alert and oriented x3, no acute distress, pleasant and cooperative, [on room air] Lungs: Resps E/U, Symmetrical chest expansion, Eyes: PERRL Musculoskeletal: Flexion and extension of lumbar spine somewhat guarded secondary to pain, deep tendon reflexes normal, strength in upper and lower extremities [5/5], [abnormal gait noted] Neurological: speech clear, wood patternmaker apprentice equal, no gross sensory deficits Assessment:: Degenerative disc disease lumbar spine lumbar radiculopathy, postlaminectomy syndrome Plan:: We will send the patient to Dr. Johnson for consultation. She is not in need of any refills at this time. She will continue on with her Percocet and her Lyrica. Patient and I have discussed physical therapy and weight loss I do believe this would also benefit her. Patient's been instructed to call the office if she has any issues prior to her next appointment. Dr. Valderrama has reviewed this note and agrees with this plan of care. This note was dictated using voice recognition software and may contain errors or omissions [facility] History I have reviewed the patient's past medical history: Yes Medical History: Reports:: Gastroesophageal Reflux Disease(GERD), Hyperlipidemia, Hypertension, MRSA (breast reduction 15-20 yrs ago) Denies:: Asthma, Cancer, Chronic Obstructive Pulmonary Disease (COPD), Diabetes Mellitus Type 1, Diabetes Mellitus Type 2, Internal Pacemaker, Seizures *Have you ever received a pneumonia vaccine?: Yes *Have you received a flu vaccine this season?: Yes Other Medical History: Reports: Fibromyalgia, Hypothyroidism, Other. Denies: Blood Transfusion Reaction Laterality Cases: Right: Arthroscopy Knee, Bilateral: Carpal Tunnel Release, Tonsillectomy Other Surgeries: Yes: Appendectomy, Cholecystectomy, Hysterectomy-Total, Sinus Surgery, Other. No: Pacemaker Amputation: No Fractures: Yes (Right Foot ) - *Social History Smoking Status: Never smoker # Packs/Day (cigarettes): 0 #Yrs smoked (if former smoker): 0 Alcohol Intake: never Alcohol Intake Frequency:: other *Occupational Status:: other Housing: house Household Members: spouse *Travel in the last 8 weeks: None Family Hx:: Cancer, Heart Attack
== END ==
PROVIDERS: PCP Family Medicine; Visit Provider Clinical Nurse Specialist Family Health
DX: M51.16 Intervertebral disc disorders with radiculopathy, lumbar region (principal); M96.1 Postlaminectomy syndrome, not elsewhere classified; K21.9 Gastro-esophageal reflux disease without esophagitis; E78.5 Hyperlipidemia, unspecified; I10 Essential (primary) hypertension; E03.9 Hypothyroidism, unspecified; Z86.14 Personal history of Methicillin resistant Staphylococcus aureus infection; M79.7 Fibromyalgia; Z87.39 Personal history of other diseases of the musculoskeletal system and connective tissue; Z90.89 Acquired absence of other organs; Z90.710 Acquired absence of both cervix and uterus; Z90.49 Acquired absence of other specified parts of digestive tract
CPT/HCPCS: 99212

== ENCOUNTER → 2020-03-21 10:04 | Outpatient (POV) | payer MEDICARE, SELFPAY ==
[2020-03-21 10:51] VITALS: BP 142/77; PULSE 85; RESP 18; O2SAT 97; BMI 49.8
--- NOTE | 2020-03-21 10:58 | HMH.PAINSOAP ---
[facility] Pain Management SOAP Note Subjective:: Patient is a 64-year-old white female who presents today for follow-up. She has been treated for pain into her low back with radiation into her lower extremities. Patient says that she has gotten much worse since having a mild procedure. She says that her pain is progressively to the point that she is unable to tolerate the pain. Patient says no one understands the pain then Ambien . Patient says she spends most of her time in the bed. She was scheduled to undergo an MRI, however, it was denied by her insurance. Patient says that the letter she received informed her that we did not document appropriately, however, our denial letter indicated that the patient will need to undergo physical therapy for 6 weeks before undergoing an MRI. I did show the patient the denial letter that we received and did compare the letter to her letter. Both letters indicate the patient needs to undergo physical therapy. Patient says she is unable to do physical therapy because she cannot tolerate the pain with physical therapy. Patient says that she is getting to the point that she is having nausea with her back pain. She says that the pain has worsened since her mild procedure. She says that she needs the MRI to see if there has been further damage . Patient says that Dr. Lopes's office did agree to see her with her MRI from more than 6 months ago. Patient says that she would still like to undergo an MRI if possible. Does rate her pain an 8 out of 10 today. Patient is also managed with Percocet 5 mg 1 tablet p.o. 4 times daily. She is requesting an increase in her medication today. Review of Systems General: No recent weight changes, no fever, no sleep disturbances Respiratory: No cough, no shortness of air, no recurring pulmonary infections Cardiovascular/peripheral vascular: No chest pain, no palpitations, no edema, no shortness of breath Gastrointestinal: No new onset incontinence, normal bowel movements reported Genitourinary: No new onset incontinence Musculoskeletal: Low back pain, bilateral leg pain Psychiatric: Normal mood/affect Neurological: [Denies weakness in extremities], [denies balance issues] Objective:: Physical exam General: Alert and oriented x3, no acute distress, pleasant and cooperative, [on room air] Lungs: Respirations even and unlabored, symmetrical chest expansion Eyes: PERRL Musculoskeletal: Flexion and extension of lumbar spine somewhat guarded secondary to pain, deep tendon reflexes normal, strength in upper and lower extremities [5/5], [abnormal gait noted] Neurological: Speech clear, oxygen therapy technician equal, no gross sensory deficit Assessment:: Degenerative disc disease lumbar spine with lumbar radiculopathy symptoms, spinal stenosis with neurogenic claudication symptoms Plan:: The patient I had a long discussion concerning physical therapy. She refuses any physical therapy. She understands we cannot resubmit for an MRI until she has tried physical therapy. She does plan to see Dr. Lopes on April 05. She also understands we can increase her medications at this time until she does discuss a plan of care with Dr. Lopes. We will plan to see her back in the clinic in 3 weeks to discuss a further plan of care after her visit with Dr. Lopes. For now, we will refill her Percocet 5 mg 1 tablet p.o. 4 times daily. We will give HER-2 months worth of medication and she can worm picker her third month in the interim. Patient has been instructed to contact clinic if she has any concerns for next appointment. Dr. Valderrama has reviewed this note and agrees with this plan of care. This note was dictated using voice recognition software and make contain errors or omissions. The patient and I specifically discussed risk factors for COVID19. These risks include, but are not limited to age greater than 60, heart or lung disease, diabetes, immunosuppression, and travel. We also discussed
== END ==
PROVIDERS: PCP Family Medicine; Visit Provider Clinical Nurse Specialist Family Health
DX: M51.16 Intervertebral disc disorders with radiculopathy, lumbar region (principal); M48.062 Spinal stenosis, lumbar region with neurogenic claudication
CPT/HCPCS: 99212

== ENCOUNTER → 2020-04-22 10:45 | Outpatient (POV) | payer MEDICARE, SELFPAY ==
[2020-04-22 11:56] VITALS: BP 128/71; PULSE 72; RESP 18; O2SAT 98; BMI 40.8
--- NOTE | 2020-04-22 12:50 | HMH.PAINSOAP ---
[facility] Pain Management SOAP Note Subjective:: Patient is a 64-year-old white female who presents today for follow-up. She has been treated for pain in her low back with radiation into her lower extremities. Patient has had a mild procedure in the past. Since her procedure, her pain has progressively gotten worse. Patient does not feel she is getting any relief at this point. She spends much of her time in the bed. She did attempt to undergo an MRI, however, was denied by her insurance. Patient has had physical therapy for greater than 6 weeks. She was also referred to Dr. Lopes for possible surgical intervention. Patient did see Dr. Lopes who did advise the patient to lose weight and continue with physical therapy. At that 3-month interval, he will reassess the patient and discuss a further plan of care. Patient says that she would like to follow-up with Dr. Lopes before proceeding with any more procedures within our clinic. She does rate her pain a 6 out of 10 today. Review of Systems General: No recent weight changes, no fever, no sleep disturbances Respiratory: No cough, no shortness of air, no recurring pulmonary infections Cardiovascular/peripheral vascular: No chest pain, no palpitations, no edema, no shortness of breath Gastrointestinal: No new onset incontinence, normal bowel movements reported Genitourinary: No new onset incontinence Musculoskeletal: Chronic low back pain with radiation into bilateral lower extremities Psychiatric: Normal mood/affect Neurological: [Denies weakness in extremities], [denies balance issues] Objective:: Physical exam General: Alert and oriented x3, no acute distress, pleasant and cooperative, [on room air] Lungs: Respirations even and unlabored, symmetrical chest expansion Eyes: PERRL Musculoskeletal: Flexion and extension of lumbar spine somewhat guarded secondary to pain, deep tendon reflexes normal, strength in upper and lower extremities [5/5], [abnormal gait noted] Neurological: Speech clear, rater associate equal, no gross sensory deficit Assessment:: Degenerative disc disease lumbar spine with lumbar radiculopathy symptoms, spinal stenosis with neurogenic claudication symptoms Plan:: Patient is scheduled to follow-up with Dr. Lopes in 3 months. She is currently undergoing physical therapy. We will plan to see her back in the clinic after her follow-up with Dr. Lopes to discuss a further plan of care. We will see her back in 3 months. She has been instructed to contact the clinic if she has any concerns before next appointment. The patient and I specifically discussed risk factors for COVID19. These risks include, but are not limited to age greater than 60, heart or lung disease, diabetes, immunosuppression, and travel. We also discussed NSAIDs may worsen COVID19 infection or symptoms. Patient should not use NSAIDs to treat COVID19 signs or symptoms. Patient was also informed that any type of corticosteroid of any form (oral or injection) will decrease the patient's immune system response and may increase the likelihood of COVID19 infection [address] symptoms[address]. Valderrama has reviewed this note and agrees with this plan of care. This note was dictated using voice recognition software and make contain errors or omissions. [facility] History I have reviewed the patient's past medical history: Yes Medical History: Reports:: Gastroesophageal Reflux Disease(GERD), Hyperlipidemia, Hypertension, MRSA (breast reduction 15-20 yrs ago) Denies:: Asthma, Cancer, Chronic Obstructive Pulmonary Disease (COPD), Diabetes Mellitus Type 1, Diabetes Mellitus Type 2, Internal Pacemaker, Seizures *Have you ever received a pneumonia vaccine?: Yes *Have you received a flu vaccine this season?: Yes Other Medical History: Reports: Fibromyalgia, Hypothyroidism, Other. Denies: Blood Transfusion Reaction Laterality Cases: Right: Arthroscopy Knee, Bilateral: Carpal Tunnel Release, Tonsillectomy Other Surgeries: Yes: Ronald
== END ==
PROVIDERS: PCP Family Medicine; Visit Provider Clinical Nurse Specialist Family Health
DX: M51.16 Intervertebral disc disorders with radiculopathy, lumbar region (principal); M48.062 Spinal stenosis, lumbar region with neurogenic claudication
CPT/HCPCS: 99212

== ENCOUNTER → 2020-06-11 14:23 | Outpatient (POV) | payer MEDICARE, MEDICAID, SELFPAY | PROVIDERS: Visit Provider Dermatology | DX: Z00.00 Encounter for general adult medical examination without abnormal findings (principal) ==

== ENCOUNTER → 2020-06-17 15:54 | Outpatient (CLI) | payer MEDICARE, MEDICAID, SELFPAY | PROVIDERS: PCP Family Medicine; Visit Provider Otolaryngology | DX: G47.33 Obstructive sleep apnea (adult) (pediatric) (principal) | CPT/HCPCS: G0399 ==

== ENCOUNTER → 2020-07-18 15:19 | Outpatient (CLI) | payer MEDICARE, MEDICAID, SELFPAY ==
--- NOTE | 2020-07-18 15:19 | MM_ITS ---
PROCEDURE: MM DIG SCREENING MAMM BI W/CAD Digital Breast Tomosynthesis Included CLINICAL INDICATION: screening xmg There is no personal or family history of breast cancer. There has been previous bilateral breast reduction surgery. COMPARISON: MG MM MAMMO DIGITAL SCREENING W CAD BILAT from 06/20/2014 MG MM MAMMO DIGITAL DIAGNOSTIC RIGHT from 08/01/2014 MG MM MAMMO DIGITAL DIAGNOSTIC W CAD BILAT from 04/06/2018 TECHNIQUE: Standard CC and MLO images and 3D Tomosynthesis was obtained. R2 CAD reviewed. FINDINGS: Mild scattered fibroglandular densities are seen throughout both breasts. There are multiple scattered benign-appearing microcalcifications throughout each breast. Many of the calcifications are cutaneous. There is no suspicious lesion in either breast and no suspicious microcalcifications. CAD markings were examined and they are benign. IMPRESSION: Fibrofatty parenchyma with no suspicious lesions seen BI-RAD Category: 2 Benign Finding(s) FOLLOW-UP: 1YR 1 Year Follow-up (A letter has been sent to the patient regarding results of the study.) Dictated by: Dr. Edenilson Almodovar MD 07/27/2020 08:01 Dr. Edenilson Almodovar MD in [place] 07/27/2020 08:01
== END ==
PROVIDERS: PCP Family Medicine; Visit Provider Nurse Practitioner Obstetrics & Gynecology
DX: Z12.31 Encounter for screening mammogram for malignant neoplasm of breast (principal)
CPT/HCPCS: 77063; 77067

== ENCOUNTER → 2020-07-22 12:55 | Outpatient (POV) | payer MEDICARE, MEDICAID, SELFPAY ==
--- NOTE | 2020-07-22 13:13 | HMH.PAINSOAP ---
[facility] Pain Management SOAP Note Subjective:: Patient is 64-year-old white female who presents today for follow-up. Patient has been treated for low back and bilateral leg pain. Patient is a candidate for surgery however she is too overweight at this time. Patient was told to start with physical therapy. She rates her pain a 6 out of 10. She has weaned herself off the Lyrica stating that it has been her hair and made her mean. Patient is currently on Percocet 5 mg 1 p.o. 4 times daily. She denies side effects to this. [facility] #[id number] reviewed and appropriate. Patient is asking for more medication today. I discussed with her that she can add ibuprofen to her regimen. I want to ensure that she can lose her weight so that she has her surgery and I believe increasing her opioids will make this more difficult for her. ROS General: no recent weight change, no fever, no sleep disturbances Respiratory: no cough, no shortness of air, no recurring pulmonary infections Cardiovascular/Peripheral Vascular: No chest pain, No palpitations, no edema, no shortness of breath. Gastrointestinal: no new onset incontinence, normal bowel movements reported Genitourinary: no new onset incontinence Musculoskeletal: Back pain, leg pain Psychiatric: normal mood/ affect Neurological: [denies new onset weakness in extremities], [denies new onset balance issues] Objective:: Physical Exam General: Alert and oriented x3, no acute distress, pleasant and cooperative, [on room air] Lungs: Resps E/U, Symmetrical chest expansion, Eyes: PERRL Musculoskeletal: Flexion and extension of lumbar spine somewhat guarded secondary to pain, deep tendon reflexes normal, strength in upper and lower extremities [5/5], antalgic gait noted Neurological: speech clear, assistant brand manager equal, no gross sensory deficits Assessment:: Degenerative disc disease lumbar spine lumbar radiculopathy Plan:: We will continue her Percocet 5 mg 1 p.o. 4 times daily. We will see her back in 3 months reassess her symptoms at that time. Patient's been instructed to call the office if she has any issues prior to her next appointment. Dr. Valderrama has reviewed this note and agrees with this plan of care. This note was dictated using voice recognition software and may contain errors or omissions [facility] History I have reviewed the patient's past medical history: Yes Medical History: Reports:: Gastroesophageal Reflux Disease(GERD), Hyperlipidemia, Hypertension, Migraine, MRSA Denies:: Asthma, Cancer, Chronic Obstructive Pulmonary Disease (COPD), Diabetes Mellitus Type 1, Diabetes Mellitus Type 2, Internal Pacemaker, Seizures *Have you ever received a pneumonia vaccine?: No *Have you received a flu vaccine this season?: Yes Other Medical History: Reports: Fibromyalgia, Hypothyroidism, Other. Denies: Blood Transfusion Reaction Laterality Cases: Right: Arthroscopy Knee, Bilateral: Carpal Tunnel Release, Tonsillectomy Other Surgeries: Yes: Appendectomy, Cholecystectomy, Hysterectomy-Total, Sinus Surgery, Other. No: Pacemaker Amputation: No Fractures: Yes (Right Foot ) - *Social History Smoking Status: Never smoker # Packs/Day (cigarettes): 0 #Yrs smoked (if former smoker): 0 Alcohol Intake: never Alcohol Intake Frequency:: other *Occupational Status:: other Housing: house Household Members: spouse *Travel in the last 8 weeks: None Family Hx:: Cancer, Heart Attack
[2020-07-22 13:23] VITALS: BP 151/97; PULSE 74; RESP 18; TEMP 37.1; O2SAT 98; BMI 50.1
== END ==
PROVIDERS: PCP Family Medicine; Visit Provider Clinical Nurse Specialist Family Health
DX: M51.16 Intervertebral disc disorders with radiculopathy, lumbar region (principal)
CPT/HCPCS: 99212; G0463

== ENCOUNTER 2020-07-29 11:17 | Emergency (ER) | payer MEDICARE, MEDICAID, SELFPAY ==
[2020-07-29 11:30] VITALS: BP 149/84; PULSE 65; RESP 20; TEMP 36.5; O2SAT 97; BMI 48.9
--- NOTE | 2020-07-29 12:02 | HMH.EDUTC ---
[facility] [place] Disposition Clinical Impression: Viral syndrome, Exposure to COVID-19 virus Acute bronchitis Qualifiers: Bronchitis organism: unspecified organism Qualified Code(s): J20.9 - Acute bronchitis, unspecified Leg pain Qualifiers: Laterality: bilateral Qualified Code(s): M79.604 - Pain in right leg Disposition: Home, Self-Care Condition on Discharge: Good Instructions: DI for Acute Bronchitis, Preventing the Spread of Coronavirus Discharge Instructions Additional Instructions: Drink plenty of fluids. Take tylenol for pain or fever. Return if you begin to have difficulty breathing. Follow up with your regular doctor. GO TO THE ER FOR ANY WORSENING SYMPTOMS Discuss your leg pain with your primary care doctor. You may need testing done to assess the vascular status of your legs (poor circulation). Prescriptions: Doxycycline Hyclate [Doxycycline 100mg Capsule] 100 mg PO Q12 10 Days #20 cap Transmission Status: Received by [id number] Benzonatate [Tessalon Perle 100mg Cap] 100 mg PO TIDP PRN #30 cap PRN Reason: Cough Transmission Status: Received by [id number] Referrals: ClementeViral [Primary Care Provider] - Time of Disposition: 12:09 Medical Decision Making - Medical Records Medical records reviewed: No: I reviewed the patient's medical records. - Shabbir Inquiry Pt receiving controlled substance: No Vital Signs: 07/29/20 11:30 07/29/20 12:14 Temperature 97.7 F 97.7 F Temperature Source Oral Pulse Rate 65 Pulse Rate [Right Brachial] 65 Respiratory Rate 20 20 Blood Pressure 149/84 H Blood Pressure [Right Arm] 149/84 H Blood Pressure Mean [Right Arm] 105 Blood Pressure Source [Right Arm] Automatic Cuff Blood Pressure Position [Right Arm] Sitting 02 Sat by Pulse Oximetry 97 Oxygen Delivery Method Room Air - Lab Data Lab Results 07/29/20 11:42: Influenza Type A Ag Negative, Influenza Type B Ag Negative 07/29/20 12:01: Strep Scn Rapid Clinic Negative Orders (Tests/Meds): ORDERS Category Date Time Status Covid-19 Nasal PCR ([facility]) Routine Lab 07/29/20 11:35 Received Strep Screen Confirmation Stat Micro 07/29/20 12:01 [facility] - General Stated complaint: chills, body aches, leg tightness Time Seen by Provider: 07/29/20 12:03 Mode of Arrival: Ambulatory Source of Information: Patient Limitations: No Limitations Description of Symptoms (Recalled from Triage Doc. by RN): PATIENT C/O BODY ACHES, SOA AND COUGHING SINCE WEDNESDAY. She also states that she has been having episodes of bilateral leg pain for the past 3 months or so. She has not discussed this with her primary care doctor. She denies any unilateral pain or swelling. HEENT Symptoms (Recalled from RN notes): No Resp Symptoms (Recalled from RN notes): Yes Skin Symptoms (Recalled from RN notes): No MS Symptoms (Recalled from RN notes): No Functional Status (Recalled from RN notes): WNL - History of Present Illness Provider Complaint: She states that for the past 2 days she has had sinus congestion, sore throat, cough, and body aches. She denies any known exposure to covid. - Related Data Home Medications Medication Instructions Recorded Confirmed allopurinol 100 mg tablet 100 mg PO BID 90 Days #180 10/05/17 07/17/20 levothyroxine 75 mcg tablet 1 tab PO DAILY 90 Days #90 10/05/17 07/17/20 lisinopril 20 1 tab PO DAILY 90 Days #45 10/05/17 07/17/20 mg-hydrochlorothiazide 25 mg tablet meloxicam 15 mg tablet 15 mg PO DAILY 90 Days #90 10/05/17 07/17/20 omeprazole 40 mg capsule,delayed 40 mg PO DAILY 90 Days #90 10/05/17 07/17/20 release promethazine 25 mg tablet 25 mg PO NEEDED PRN 45 Days #180 10/05/17 07/17/20 propranolol 20 mg tablet 20 mg PO DAILY 90 Days #180 10/05/17 07/04/20 Aspirin [Aspirin 81mg EC Tab] 81 mg PO DAILY 12/12/19 07/17/20 Biotin 5,000 mcg PO DAILY 12/12/19 07/17/20 pregabalin 75 mg capsule 75 mg PO BID 07/17/20 07/17/20 Previous
[2020-07-29 12:14] VITALS: BP 149/84; PULSE 65; RESP 20; TEMP 36.5; O2SAT 97
[2020-07-29 12:25] LABS: UTC Strep Screen (Rapid) Negative (Negative)
[2020-07-29 12:25] LABS: UTC Influenza A Antigen Negative (Negative)
[2020-07-29 12:26] LABS: UTC Influenza B Antigen Negative (Negative)
--- NOTE | 2020-07-29 20:31 | PC.NURSE ---
patient notified of positive covid test
== END 2020-07-29 12:15 | disposition home or self-care (01) ==
PROVIDERS: Emergency Provider Nurse Practitioner Family; PCP Family Medicine
DX: U07.1 COVID-19 (principal); K21.9 Gastro-esophageal reflux disease without esophagitis; E78.5 Hyperlipidemia, unspecified; I10 Essential (primary) hypertension; E03.9 Hypothyroidism, unspecified; M79.7 Fibromyalgia; Z88.0 Allergy status to penicillin; Z88.5 Allergy status to narcotic agent; Z79.899 Other long term (current) drug therapy
CPT/HCPCS: G0463; 87804; 87880; 99202; U0003

== ENCOUNTER → 2020-10-31 14:47 | Outpatient (POV) | payer MEDICARE, OTHER, SELFPAY ==
[2020-10-31 14:58] VITALS: BP 127/77; PULSE 69; RESP 18; TEMP 36.8; O2SAT 98; BMI 48.9
--- NOTE | 2020-10-31 15:06 | HMH.PAINSOAP ---
[facility] Pain Management SOAP Note Subjective:: Patient is a pleasant 64-year-old white female who presents today for follow-up. Patient currently being medically managed with Percocet 5 mg 1 p.o. 4 times daily. She denies side effects to this medication she rates her pain a 7 out of 10 she recently broke her collarbone is awaiting surgical consultation for this. Patient is discontinued her Lyrica and her Mobic. [facility] number [id number] reviewed and appropriate. Her current morphine equivalent is 30 ROS General: no recent weight change, no fever, no sleep disturbances Respiratory: no cough, no shortness of air, no recurring pulmonary infections Cardiovascular/Peripheral Vascular: No chest pain, No palpitations, no edema, no shortness of breath. Gastrointestinal: no new onset incontinence, normal bowel movements reported Genitourinary: no new onset incontinence Musculoskeletal: Back pain, leg pain Psychiatric: normal mood/ affect Neurological: [denies new onset weakness in extremities], [denies new onset balance issues] O Objective:: Physical Exam General: Alert and oriented x3, no acute distress, pleasant and cooperative, [on room air] Lungs: Resps E/U, Symmetrical chest expansion, Eyes: PERRL Musculoskeletal: Flexion and extension of lumbar spine somewhat guarded secondary to pain, deep tendon reflexes normal, strength in upper and lower extremities [5/5], [abnormal gait noted] Neurological: speech clear, boiler plant worker 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 4 times daily. We will follow up with her in 3 months reassess her symptoms at that time she has been instructed to call the office if she has any issues prior to her next appointment. Dr. Valderrama has reviewed this note and agrees with this plan of care. This note was dictated using voice recognition software and may contain errors or omissions. Patient has been prescribed a controlled substance after being counseled on the medication, medication safety, and possible side effects. HAVEN report has been obtained and reviewed prior to prescription and found to be appropriate. Opioid contract was reviewed and signed by the patient, and that they have agreed to all of the terms set forth by our compliance program. [facility] History I have reviewed the patient's past medical history: Yes Medical History: Reports:: Gastroesophageal Reflux Disease(GERD), Hyperlipidemia, Hypertension, Migraine, MRSA Denies:: Asthma, Cancer, Chronic Obstructive Pulmonary Disease (COPD), Diabetes Mellitus Type 1, Diabetes Mellitus Type 2, Internal Pacemaker, Seizures *Have you ever received a pneumonia vaccine?: Yes *Have you received a flu vaccine this season?: Yes Other Medical History: Reports: Fibromyalgia, Hypothyroidism, Other. Denies: Blood Transfusion Reaction Laterality Cases: Right: Arthroscopy Knee, Bilateral: Carpal Tunnel Release, Tonsillectomy Other Surgeries: Yes: Appendectomy, Cholecystectomy, Hysterectomy-Total, Sinus Surgery, Other. No: Pacemaker Amputation: No Fractures: Yes (Right Foot ) - *Social History Smoking Status: Never smoker # Packs/Day (cigarettes): 0 #Yrs smoked (if former smoker): 0 Alcohol Intake: never Alcohol Intake Frequency:: other *Occupational Status:: retired Housing: house Household Members: spouse *Travel in the last 8 weeks: None Family Hx:: Cancer, Heart Attack
== END ==
PROVIDERS: Visit Provider Clinical Nurse Specialist Family Health
DX: M51.16 Intervertebral disc disorders with radiculopathy, lumbar region (principal)
CPT/HCPCS: 99212; G0463

== ENCOUNTER → 2021-03-06 11:52 | Outpatient (POV) | payer MEDICARE, SELFPAY ==
[2021-03-06 12:13] VITALS: BP 131/49; PULSE 60; RESP 18; O2SAT 96; BMI 46.8
--- NOTE | 2021-03-06 12:39 | HMH.PAINSOAP ---
[facility] Pain Management SOAP Note Subjective:: Patient is a 65-year-old white female who presents today for follow-up. She is being treated for degenerative disc disease lumbar spine with lumbar radiculopathy symptoms and chronic low back pain. She is managed with Percocet 5 mg 1 tablet p.o. 4 times daily. She is complaining of worsening pain to her low back. She is currently on Effexor as well for her neuropathic pain. She says that her pain is radiating into her lower extremities. She is asking for an increase in medication. I have expressed to the patient she is maxed out on medication per our clinic. We did discuss possible muscle relaxer due to muscle spasms that she is currently having. She has tried gabapentin and Lyrica in the past with no relief. She says that Cymbalta caused her to have severe GI issues as well as anti-inflammatories. We will not be able to increase her Percocet. I have discussed this with the patient. We can give her a low-dose of Flexeril to see if this helps with her pain. She is in agreement. The patient's [facility] #[id number] has been reviewed. It is appropriate. Patient's morphine equivalent is 30. Review of Systems General: No recent weight changes, no fever, no sleep disturbances Respiratory: No cough, no shortness of air, no recurring pulmonary infections Cardiovascular/peripheral vascular: No chest pain, no palpitations, no edema, no shortness of breath Gastrointestinal: No new onset incontinence, normal bowel movements reported Genitourinary: No new onset incontinence Musculoskeletal: Low back pain with lower extremity pain Psychiatric: [Normal mood/affect] Neurological: [Denies weakness in extremities], [denies balance issues] Objective:: Physical exam General: Alert and oriented x3, no acute distress, pleasant and cooperative, [on room air] Lungs: Respirations even and unlabored, symmetrical chest expansion Eyes: PERRL Musculoskeletal: Flexion and extension of lumbar [spine] somewhat guarded secondary to pain, strength in upper and lower extremities [5/5], [antalgic gait noted] Neurological: Speech clear, [classroom instructional aide equal], no gross sensory deficit Assessment:: Degenerative disc disease lumbar spine with lumbar radiculopathy symptoms Plan:: We will continue the patient 5 mg 1 tablet p.o. 4 times daily. We will give her a low-dose of Flexeril 5 mg 1 tablet p.o. 3 times daily as needed muscle spasms. I have expressed to the patient to use caution due to her multiple drug allergies. She will review her medications with the pharmacist and discuss any drug drug interaction. We will see her back in the clinic in 1 month for reevaluation of symptoms. Risks and benefits of the medication have been explained in detail to the patient. The patient has been advised to consult with his/her primary care provider and pharmacist regarding drug-drug interaction of medications currently prescribed. Patient has been prescribed a controlled substance after being counseled on the medication, medication safety, and possible side effects. HAVEN report has been obtained and reviewed prior to prescription and found to be appropriate. Opioid contract was reviewed and signed by the patient, and that they have agreed to all of the terms set forth by our compliance program. Patient has been instructed to contact the clinic with any concerns before the next appointment. Dr. Valderrama has reviewed this note and agrees with this plan of care. This note was dictated using voice recognition software and make contain errors or omissions. [facility] History I have reviewed the patient's past medical history: Yes Medical History: Reports:: Gastroesophageal Reflux Disease(GERD), Hyperlipidemia, Hypertension, Migraine, MRSA Denies:: Asthma, Cancer, Chronic Obstructive Pulmonary Disease (COPD), Diabetes Mellitus Type 1, Diabetes Mellitus Type 2, Internal Pacemaker, Seizures *Have you ever received a pneumonia vaccine?: Yes *Have yo
== END ==
PROVIDERS: Visit Provider Clinical Nurse Specialist Family Health
DX: M51.16 Intervertebral disc disorders with radiculopathy, lumbar region (principal)
CPT/HCPCS: 99212; G0463

== ENCOUNTER → 2021-04-03 14:02 | Outpatient (POV) | payer MEDICARE, SELFPAY ==
[2021-04-03 14:30] VITALS: BP 135/76; PULSE 64; RESP 18; O2SAT 96; BMI 48.7
--- NOTE | 2021-04-03 14:30 | HMH.PAINSOAP ---
[facility] Pain Management SOAP Note Subjective:: Patient is a 65-year-old white female who presents today for medication refills. The patient is being treated for degenerative disc disease lumbar spine with lumbar radiculopathy symptoms. Patient does get Percocet 5 mg 1 tablet p.o. 4 times daily and Flexeril 5 mg 1 tablet p.o. 3 times daily. Patient says that the Flexeril is helping with her pain at bedtime and throughout the day, however, she says that she would like an increase in the dose. She is rating her pain a 6 out of 10 today. We will increase her Flexeril today. She has tried Cymbalta in the past, however, had severe GI issues with the medication. She has also tried anti-inflammatories. She also had significant GI issues with her anti-inflammatories. Review of Systems General: No recent weight changes, no fever, no sleep disturbances Respiratory: No cough, no shortness of air, no recurring pulmonary infections Cardiovascular/peripheral vascular: No chest pain, no palpitations, no edema, no shortness of breath Gastrointestinal: No new onset incontinence, normal bowel movements reported Genitourinary: No new onset incontinence Musculoskeletal: Low back pain with bilateral leg pain Psychiatric: [Normal mood/affect] Neurological: [Denies weakness in extremities], [denies balance issues] Objective:: Physical exam General: Alert and oriented x3, no acute distress, pleasant and cooperative, [on room air] Lungs: Respirations even and unlabored, symmetrical chest expansion Eyes: PERRL Musculoskeletal: Flexion and extension of lumbar [spine] somewhat guarded secondary to pain, strength in upper and lower extremities [5/5], [antalgic gait noted] Neurological: Speech clear, [agent broker equal], no gross sensory deficit Assessment:: Degenerative disc disease lumbar spine with lumbar radiculopathy symptoms Plan:: We will refill the patient's Percocet 5 mg 1 tablet p.o. 4 times daily. We will increase the patient's Flexeril to 10 mg 1 tablet p.o. 3 times daily. We will see the patient back in the clinic in 1 month for reevaluation of symptoms. Patient may need preauthorization of her Flexeril. [facility] #[id number] has been reviewed and is appropriate. Morphine equivalent is 30. Drug screen is appropriate. Risks and benefits of the medication have been explained in detail to the patient. The patient has been advised to consult with his/her primary care provider and pharmacist regarding drug-drug interaction of medications currently prescribed. Patient has been prescribed a controlled substance after being counseled on the medication, medication safety, and possible side effects. [facility] report has been obtained and reviewed prior to prescription and found to be appropriate. Opioid contract was reviewed and signed by the patient, and that they have agreed to all of the terms set forth by our compliance program. Patient has been instructed to contact the clinic with any concerns before the next appointment. Dr. Valderrama has reviewed this note and agrees with this plan of care. This note was dictated using voice recognition software and make contain errors or omissions. [facility] History I have reviewed the patient's past medical history: Yes Medical History: Reports:: Gastroesophageal Reflux Disease(GERD), Hyperlipidemia, Hypertension, Migraine, MRSA Denies:: Asthma, Cancer, Chronic Obstructive Pulmonary Disease (COPD), Diabetes Mellitus Type 1, Diabetes Mellitus Type 2, Internal Pacemaker, Seizures *Have you ever received a pneumonia vaccine?: Yes *Have you received a flu vaccine this season?: No Other Medical History: Reports: Fibromyalgia, Hypothyroidism, Other. Denies: Blood Transfusion Reaction Laterality Cases: Right: Arthroscopy Knee, Bilateral: Carpal Tunnel Release, Tonsillectomy Other Surgeries: Yes: Appendectomy, Cholecystectomy, Hysterectomy-Total, Sinus Surgery, Other. No: Pacemaker Amputation: No Fractures: Yes (Right Foot ) -
== END ==
PROVIDERS: Visit Provider Clinical Nurse Specialist Family Health
DX: M51.16 Intervertebral disc disorders with radiculopathy, lumbar region (principal)
CPT/HCPCS: 99212; G0463

== ENCOUNTER → 2021-05-05 08:56 | Outpatient (POV) | payer MEDICARE, SELFPAY ==
--- NOTE | 2021-05-05 09:28 | HMH.PAINSOAP ---
[facility] Pain Management SOAP Note Subjective:: Patient is a 65-year-old white female who presents today for medication refills. 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 Patient says that she is getting excellent relief with her Percocet and Flexeril. She is managed with Percocet 5 mg 1 tablet p.o. 4 times daily and Flexeril 10 mg 1 tablet p.o. 3 times daily. She denies any side effects. [facility] #[id number] has been reviewed and is appropriate. Morphine equivalent is 30. Review of Systems General: No recent weight changes, no fever, no sleep disturbances Respiratory: No cough, no shortness of air, no recurring pulmonary infections Cardiovascular/peripheral vascular: No chest pain, no palpitations, no edema, no shortness of breath Gastrointestinal: No new onset incontinence, normal bowel movements reported Genitourinary: No new onset incontinence Musculoskeletal: Low back pain with radiation into lower extremities Psychiatric: [Normal mood/affect] Neurological: [Denies weakness in extremities], [denies balance issues] Objective:: Physical exam General: Alert and oriented x3, no acute distress, pleasant and cooperative Lungs: Respirations even and unlabored, symmetrical chest expansion Eyes: PERRL Musculoskeletal: Flexion and extension of lumbar [spine] somewhat guarded secondary to pain, [antalgic gait noted] Neurological: Speech clear, no gross sensory deficit Assessment:: Degenerative disc disease lumbar spine with lumbar radiculopathy symptoms Plan:: We will refill the patient's Percocet 5 mg 1 tablet p.o. 4 times daily and Flexeril 10 mg 1 tablet p.o. 3 times daily. We will give the patient a month medication see her back in the clinic in 1 month for reevaluation of symptoms. Risks and benefits of the medication have been explained in detail to the patient. The patient does understand the risk of dependence on the medication when given over a prolonged period. Patient has been advised of risks of oversedation with the prescribed medication. Narcan has been offered to the paitent in the event of oversedation. Patient has been advised that a family member should also be educated regarding administration of Narcan. The patient has been advised to consult with his/her primary care provider and pharmacist regarding drug-drug interaction of medications currently prescribed. Patient has been prescribed a controlled substance after being counseled on the medication, medication safety, and possible side effects. HAVEN report has been obtained and reviewed prior to prescription and found to be appropriate. Opioid contract was reviewed and signed by the patient, and that they have agreed to all of the terms set forth by our compliance program. Patient has been instructed to contact the clinic with any concerns before the next appointment. Dr. Valderrama has reviewed this note and agrees with this plan of care. This note was dictated using voice recognition software and make contain errors or omissions. [facility] History I have reviewed the patient's past medical history: Yes Medical History: Reports:: Gastroesophageal Reflux Disease(GERD), Hyperlipidemia, Hypertension, Migraine, MRSA Denies:: Asthma, Cancer, Chronic Obstructive Pulmonary Disease (COPD), Diabetes Mellitus Type 1, Diabetes Mellitus Type 2, Internal Pacemaker, Seizures *Have you ever received a pneumonia vaccine?: No *Have you received a flu vaccine this season?: No Other Medical History: Reports: Fibromyalgia, Hypothyroidism, Other. Denies: Blood Transfusion Reaction Laterality Cases: Right: Arthroscopy Knee, Bilateral: Carpal Tunnel Release, Tonsillectomy Other Surgeries: Yes: Appendectomy, Cholecystectomy, Hysterectomy-Total, Sinus Surgery, Other. No: Pacemaker Amputation: No Fractures: Yes (Right Foot ) - *Social History Smoking Status: Never smoker # Packs/Day (cigarett
[2021-05-05 09:36] VITALS: BP 135/71; PULSE 65; RESP 18; O2SAT 97; BMI 43.2
[2021-05-05 10:17] LABS: Amphetamine/Metha Screen,Urine Negative ng/ml (<1000); Benzodiazepines Screen,Urine Negative ng/ml (<200)
[2021-05-05 10:18] LABS: Barbiturates Screen,Urine Negative ng/ml (<200)
[2021-05-05 10:19] LABS: Cannabinoid Screen,Urine Negative ng/ml (<50); Cocaine Screen,Urine Negative ng/ml (<300)
[2021-05-05 10:20] LABS: Methadone Screen,Urine Negative ng/ml (<300)
[2021-05-05 10:21] LABS: Opiate Screen,Urine Positive ng/ml (<300); Phencyclidine Screen,Urine Negative ng/ml (<25)
== END ==
PROVIDERS: Visit Provider Clinical Nurse Specialist Family Health
DX: M51.16 Intervertebral disc disorders with radiculopathy, lumbar region (principal); Z79.891 Long term (current) use of opiate analgesic
CPT/HCPCS: 80305; 99212; G0463

== ENCOUNTER → 2021-06-05 13:50 | Outpatient (POV) | payer MEDICARE, SELFPAY ==
[2021-06-05 14:09] VITALS: BP 134/81; PULSE 70; RESP 18; O2SAT 98; BMI 45.3
--- NOTE | 2021-06-05 14:14 | HMH.PAINSOAP ---
[facility] Pain Management SOAP Note Subjective:: Patient is a 65-year-old female who presents today for medication refills. Patient does have chronic low back pain with lumbar radicular symptoms. She says she does well with her Percocet and Flexeril. We do give the patient Percocet 5 mg 1 tablet p.o. 4 times daily and Flexeril 10 mg 1 tablet p.o. 3 times daily. She gets up to 60 to 70% relief with her medication regimen. [facility] #[id number] has been reviewed and is appropriate. Drug screen is appropriate. Morphine equivalent is 30. She does rate her pain a 5 out of 10 which is baseline. Review of Systems General: No recent weight changes, no fever, no sleep disturbances Respiratory: No cough, no shortness of air, no recurring pulmonary infections Cardiovascular/peripheral vascular: No chest pain, no palpitations, no edema, no shortness of breath Gastrointestinal: No new onset incontinence, normal bowel movements reported Genitourinary: No new onset incontinence Musculoskeletal: Low back pain with radiation into bilateral lower extremities Psychiatric: [Normal mood/affect] Neurological: [Denies weakness in extremities], [denies balance issues] Assessment:: Physical exam General: Alert and oriented x3, no acute distress, pleasant and cooperative Lungs: Respirations even and unlabored, symmetrical chest expansion Eyes: PERRL Musculoskeletal: Flexion and extension of lumbar [spine] somewhat guarded secondary to pain, [antalgic gait noted] Neurological: Speech clear, no gross sensory deficit Plan:: We will refill the patient's Percocet 5 mg 1 tablet p.o. 4 times daily and Flexeril 10 mg 1 tablet p.o. 3 times daily. She will be changing pharmacies to [facility] in [place]. This is closer for the patient to pharmacy picking technician the medications. We will see the patient back in the clinic in 1 month for reevaluation symptoms and medication refills. Risks and benefits of the medication have been explained in detail to the patient. The patient does understand the risk of dependence on the medication when given over a prolonged period. Patient has been advised of risks of oversedation with the prescribed medication. Narcan has been offered to the paitent in the event of oversedation. Patient has been advised that a family member should also be educated regarding administration of Narcan. The patient has been advised to consult with his/her primary care provider and pharmacist regarding drug-drug interaction of medications currently prescribed. Patient has been prescribed a controlled substance after being counseled on the medication, medication safety, and possible side effects. HAVEN report has been obtained and reviewed prior to prescription and found to be appropriate. Opioid contract was reviewed and signed by the patient, and that they have agreed to all of the terms set forth by our compliance program. Patient has been instructed to contact the clinic with any concerns before the next appointment. Dr. Valderrama has reviewed this note and agrees with this plan of care. This note was dictated using voice recognition software and make contain errors or omissions. [facility] History I have reviewed the patient's past medical history: Yes Medical History: Reports:: Gastroesophageal Reflux Disease(GERD), Hyperlipidemia, Hypertension, Migraine, MRSA Denies:: Asthma, Cancer, Chronic Obstructive Pulmonary Disease (COPD), Diabetes Mellitus Type 1, Diabetes Mellitus Type 2, Internal Pacemaker, Seizures *Have you ever received a pneumonia vaccine?: No *Have you received a flu vaccine this season?: No Other Medical History: Reports: Fibromyalgia, Hypothyroidism, Other. Denies: Blood Transfusion Reaction Laterality Cases: Right: Arthroscopy Knee, Bilateral: Carpal Tunnel Release, Tonsillectomy Other Surgeries: Yes: Appendectomy, Cholecystectomy, Hysterectomy-Total, Sinus Surgery, Other. No: Pacemaker Amputation: No Fractures: Yes (Right Foot )
== END ==
PROVIDERS: Visit Provider Clinical Nurse Specialist Family Health
DX: M51.16 Intervertebral disc disorders with radiculopathy, lumbar region (principal)
CPT/HCPCS: 99212; G0463

== ENCOUNTER → 2021-07-03 13:02 | Outpatient (POV) | payer MEDICARE, SELFPAY ==
[2021-07-03 13:21] VITALS: BP 124/73; PULSE 73; RESP 18; O2SAT 96; BMI 45.3
--- NOTE | 2021-07-03 13:49 | HMH.PAINSOAP ---
[facility] Pain Management SOAP Note Subjective:: Patient is a 65-year-old white male who presents today for medication refills. We are seeing the patient for chronic low back pain and bilateral lower extremity pain. She is managed with Percocet 5 mg 1 tablet p.o. 4 times daily and Flexeril 10 mg 1 tablet p.o. 3 times daily. She rates her pain a 6 out of 10 which is baseline for the patient. Drug screens have been appropriate. Morphine equivalent is 30. She denies any side effects to the medicine. [facility] #[id number] has been reviewed and is appropriate. Patient does say that she is currently dealing with an ear infection right side along with right neck swelling. She is being sent for an ultrasound of her neck to determine pathology. She does feel the medications are working well for her low back pain at this time. Review of Systems General: No recent weight changes, no fever, no sleep disturbances Respiratory: No cough, no shortness of air, no recurring pulmonary infections Cardiovascular/peripheral vascular: No chest pain, no palpitations, no shortness of breath Gastrointestinal: No new onset incontinence, normal bowel movements reported Genitourinary: No new onset incontinence Musculoskeletal: Chronic low back pain, bilateral lower extremity pain, right side neck pain Psychiatric: [Normal mood/affect] Neurological: [Denies weakness in extremities], [denies balance issues] Objective:: Physical exam General: Alert and oriented x3, no acute distress, pleasant and cooperative Lungs: Respirations even and unlabored, symmetrical chest expansion Eyes: PERRL Musculoskeletal: Flexion and extension of lumbar and cervical [spine] somewhat guarded secondary to pain, [antalgic gait noted] Neurological: Speech clear, no gross sensory deficit Assessment:: Degenerative disc disease lumbar spine with lumbar radiculopathy symptoms, neck pain acute Plan:: We will continue the patient's Percocet 5 mg 1 tablet p.o. 4 times daily. She will get a month medication. We will continue her Flexeril 10 mg 1 tablet p.o. 3 times daily. We will see her back in the clinic in 1 month for further evaluation. Risks and benefits of the medication have been explained in detail to the patient. The patient does understand the risk of dependence on the medication when given over a prolonged period. Patient has been advised of risks of oversedation with the prescribed medication. Narcan has been offered to the paitent in the event of oversedation. Patient has been advised that a family member should also be educated regarding administration of Narcan. The patient has been advised to consult with his/her primary care provider and pharmacist regarding drug-drug interaction of medications currently prescribed. Patient has been prescribed a controlled substance after being counseled on the medication, medication safety, and possible side effects. HAVEN report has been obtained and reviewed prior to prescription and found to be appropriate. Opioid contract was reviewed and signed by the patient, and that they have agreed to all of the terms set forth by our compliance program. Patient has been instructed to contact the clinic with any concerns before the next appointment. Dr. Valderrama has reviewed this note and agrees with this plan of care. This note was dictated using voice recognition software and make contain errors or omissions. [facility] History I have reviewed the patient's past medical history: Yes Medical History: Reports:: Gastroesophageal Reflux Disease(GERD), Hyperlipidemia, Hypertension, Migraine, MRSA Denies:: Asthma, Cancer, Chronic Obstructive Pulmonary Disease (COPD), Diabetes Mellitus Type 1, Diabetes Mellitus Type 2, Internal Pacemaker, Seizures *Have you ever received a pneumonia vaccine?: No *Have you received a flu vaccine this season?: No Other Medical History: Reports: Fibromyalgia, Hypothyroidism, Other. Denies: Blood Transfusion [place]
== END ==
PROVIDERS: Visit Provider Clinical Nurse Specialist Family Health
DX: M51.16 Intervertebral disc disorders with radiculopathy, lumbar region (principal); M45.2 Ankylosing spondylitis of cervical region
CPT/HCPCS: 99212; G0463

== ENCOUNTER → 2021-07-31 13:20 | Outpatient (POV) | payer MEDICARE, SELFPAY ==
[2021-07-31 13:45] VITALS: BP 144/73; PULSE 79; RESP 18; O2SAT 98; BMI 45.3
[2021-07-31 19:00] LABS: Amphetamine/Metha Screen,Urine Negative ng/ml (<1000); Barbiturates Screen,Urine Negative ng/ml (<200)
[2021-07-31 19:02] LABS: Benzodiazepines Screen,Urine Negative ng/ml (<200); Cannabinoid Screen,Urine Negative ng/ml (<50)
[2021-07-31 19:03] LABS: Cocaine Screen,Urine Negative ng/ml (<300)
[2021-07-31 19:04] LABS: Methadone Screen,Urine Negative ng/ml (<300); Opiate Screen,Urine Positive ng/ml (<300)
[2021-07-31 19:05] LABS: Phencyclidine Screen,Urine Negative ng/ml (<25)
--- NOTE | 2021-08-11 08:37 | HMH.PAINSOAP ---
[facility] Pain Management SOAP Note Subjective:: Patient is a 65-year-old like who presents today for medication refills. We treat her for chronic low back pain with radiation into bilateral lower extremities. She is managed with Percocet 5 mg 1 tablet p.o. 4 times daily and Flexeril. She is doing well with her medications. Rates her pain a 6 out of 10. She does not need any changes at this time. She denies any side effects. Review of Systems General: No recent weight changes, no fever, no sleep disturbances Respiratory: No cough, no shortness of air, no recurring pulmonary infections Cardiovascular/peripheral vascular: No chest pain, no palpitations, no edema, no shortness of breath Gastrointestinal: No new onset incontinence, normal bowel movements reported Genitourinary: No new onset incontinence Musculoskeletal: Low back pain with radiation into lower extremities Psychiatric: [Normal mood/affect] Neurological: [Denies weakness in extremities], [denies balance issues] Objective:: Physical exam General: Alert and oriented x3, no acute distress, pleasant and cooperative Lungs: Respirations even and unlabored, symmetrical chest expansion Eyes: PERRL Musculoskeletal: Flexion and extension of lumbar [spine] somewhat guarded secondary to pain, [antalgic gait noted] Neurological: Speech clear, no gross sensory deficit Assessment:: Degenerative disc disease lumbar spine with radiculopathy symptoms Plan:: We will continue the patient's Percocet 5 mg 1 tablet p.o. 4 times daily. We will also continue with Flexeril 10 mg 1 tablet p.o. 3 times daily. We will give the patient a month medication see her back in the clinic in 1 month. Risks and benefits of the medication have been explained in detail to the patient. The patient does understand the risk of dependence on the medication when given over a prolonged period. Patient has been advised of risks of oversedation with the prescribed medication. Narcan has been offered to the paitent in the event of oversedation. Patient has been advised that a family member should also be educated regarding administration of Narcan. The patient has been advised to consult with his/her primary care provider and pharmacist regarding drug-drug interaction of medications currently prescribed. Patient has been prescribed a controlled substance after being counseled on the medication, medication safety, and possible side effects. HAVEN report has been obtained and reviewed prior to prescription and found to be appropriate. Opioid contract was reviewed and signed by the patient, and that they have agreed to all of the terms set forth by our compliance program. Patient has been instructed to contact the clinic with any concerns before the next appointment. Dr. Valderrama has reviewed this note and agrees with this plan of care. This note was dictated using voice recognition software and make contain errors or omissions. [facility] History I have reviewed the patient's past medical history: Yes Medical History: Reports:: Gastroesophageal Reflux Disease(GERD), Hyperlipidemia, Hypertension, Migraine, MRSA Denies:: Asthma, Cancer, Chronic Obstructive Pulmonary Disease (COPD), Diabetes Mellitus Type 1, Diabetes Mellitus Type 2, Internal Pacemaker, Seizures *Have you ever received a pneumonia vaccine?: No *Have you received a flu vaccine this season?: No Other Medical History: Reports: Fibromyalgia, Hypothyroidism, Other. Denies: Blood Transfusion Reaction Laterality Cases: Right: Arthroscopy Knee, Bilateral: Carpal Tunnel Release, Tonsillectomy Other Surgeries: Yes: Appendectomy, Cholecystectomy, Hysterectomy-Total, Sinus Surgery, Other. No: Pacemaker Amputation: No Fractures: Yes (Right Foot ) - *Social History Smoking Status: Never smoker # Packs/Day (cigarettes): 0 #Yrs smoked (if former smoker): 0 Alcohol Intake: never Alcohol Intake Frequency:: other Substance Use Type: denies use *Occupati
[2021-08-19 07:31] LABS: Opiates Negative (Cutoff=100); Oxycodone (GC/MS) 2076 ng/mL (Cutoff=100); Oxymorphone (GC/MS) 477 ng/mL (Cutoff=100)
== END ==
PROVIDERS: Visit Provider Clinical Nurse Specialist Family Health
DX: M51.16 Intervertebral disc disorders with radiculopathy, lumbar region (principal); Z79.891 Long term (current) use of opiate analgesic
CPT/HCPCS: 80305; 80361; 80365; 99212; G0463; G0480

== ENCOUNTER → 2021-08-28 13:01 | Outpatient (POV) | payer MEDICARE, SELFPAY ==
--- NOTE | 2021-08-28 13:49 | HMH.PAINSOAP ---
[facility] Pain Management SOAP Note Subjective:: Patient is a 73-year-old white male who presents today for follow-up. He is continuing to have significant low back pain that radiates into his left hip and left leg. He is now having difficulty with ambulation due to pain. He has seen a chiropractor in the past but has not had recent physical therapy. We did discuss physical therapy. He does have an MRI he would like to review today. He is not having any saddle anesthesia or changes in bowel or bladder habit. Pain is primarily bilateral low back going into the left lower extremity. Review of Systems General: No recent weight changes, no fever, no sleep disturbances Respiratory: No cough, no shortness of air, no recurring pulmonary infections Cardiovascular/peripheral vascular: No chest pain, no palpitations, no edema, no shortness of breath Gastrointestinal: No new onset incontinence, normal bowel movements reported Genitourinary: No new onset incontinence Musculoskeletal: Low back pain with radiation into lower extremity Psychiatric: [Normal mood/affect] Neurological: [Denies weakness in extremities], [denies balance issues] Objective:: Physical exam General: Alert and oriented x3, no acute distress, pleasant and cooperative Lungs: Respirations even and unlabored, symmetrical chest expansion Eyes: PERRL Musculoskeletal: Flexion and extension of lumbar [spine] somewhat guarded secondary to pain, [antalgic gait noted] Neurological: Speech clear, no gross sensory deficit Assessment:: Degenerative disc disease lumbar spine with lumbar radiculopathy symptoms Plan:: Patient does have moderate bulging disc at the L2-L3 area. This is where he is complaining of pain. He is having pain into his left lower extremity as well. We will schedule him for physical therapy and a lumbar epidural steroid injection at L2-L3. The patient is not on any anticoagulation therapy. We will also give him tramadol 50 mg 1 tablet p.o. 3 times daily until he is able to complete the injection and to help with pain during physical therapy. If he does not get in the relief with the injections, we will refer him to neurosurgery. We also discussed spinal cord stimulation and he was given educational information today. Possible side effects of corticosteroids have been discussed with the patient. Risks and benefits of the procedure have been explained to the patient. Patient would like to proceed with the procedure. Patient has been instructed to contact the clinic with any concerns before the next appointment. Dr. Valderrama has reviewed this note and agrees with this plan of care. This note was dictated using voice recognition software and make contain errors or omissions. Risks and benefits of the medication have been explained in detail to the patient. The patient does understand the risk of dependence on the medication when given over a prolonged period. Patient has been advised of risks of oversedation with the prescribed medication. Narcan has been offered to the paitent in the event of oversedation. Patient has been advised that a family member should also be educated regarding administration of Narcan. The patient has been advised to consult with his/her primary care provider and pharmacist regarding drug-drug interaction of medications currently prescribed. Patient has been prescribed a controlled substance after being counseled on the medication, medication safety, and possible side effects. [facility] report has been obtained and reviewed prior to prescription and found to be appropriate. Opioid contract was reviewed and signed by the patient, and that they have agreed to all of the terms set forth by our compliance program. Patient has been instructed to contact the clinic with any concerns before the next appointment. Dr. Valderrama has reviewed this note and agrees with this plan of care. This note was dictated using voice recognition softwa
== END ==
PROVIDERS: Visit Provider Clinical Nurse Specialist Family Health
DX: M51.16 Intervertebral disc disorders with radiculopathy, lumbar region (principal)
CPT/HCPCS: 99212; G0463

== ENCOUNTER → 2021-09-25 09:40 | Outpatient (POV) | payer MEDICARE, SELFPAY ==
[2021-09-25 10:04] VITALS: BP 156/91; PULSE 76; RESP 20; TEMP 36.3; O2SAT 97; BMI 45.4
--- NOTE | 2021-09-25 12:26 | P.CONS_ITS ---
[facility] Pain Management SOAP Note Subjective:: Patient is a pleasant 65-year-old female who is here for medication refill and follow-up. Patient is currently being treated for generative disc disease of the lumbar spine with lumbar radiculopathy symptoms. Patient is being managed with Percocet 5 mg 4 times a day and Flexeril. Patient denies any side effects from the medications. Patient denies any changes to the location and type of pain. Patient states that this is adequately helping manage his pain. Rates pain as 7 out of 10. [facility] number [id number] with an active morphine equivalent 30. Drug screens have been reviewed and appropriate. General: No recent weight changes, no fever, no sleep disturbances Respiratory: No cough, no shortness of air, no recurring pulmonary infections Cardiovascular/peripheral vascular: No chest pain, no palpitations, no edema, no shortness of breath Gastrointestinal: No new onset incontinence, normal bowel movements reported Genitourinary: No new onset incontinence Musculoskeletal: Back pain Psychiatric: [Normal mood/affect] Neurological: [Denies weakness in extremities], [denies balance issues] Objective:: General: Alert and oriented x3, no acute distress, pleasant and cooperative, [on room air] Lungs: Respirations even and unlabored, symmetrical chest expansion Eyes: PERRL Musculoskeletal: Flexion and extension of lumbar [spine] somewhat guarded secondary to pain, [antalgic gait noted] Neurological: Speech clear, no gross sensory deficit Assessment:: Degenerative disc disease of the lumbar spine with lumbar radiculopathy symptoms Plan:: We will continue the patient's Percocet 5 mg 4 times a day and Flexeril 10 mg 3 times a day. We will provide the patient with 1 month of refills. We would like to see the patient back in a month for follow-up and reevaluation of chronic pain syndrome. Patient has been advised of risks of oversedation with the prescribed medication. Narcan has been offered to the paitent in the event of oversedation. Patient has been advised that a family member should also be educated regarding administration of Narcan. Patient has been instructed to contact the clinic with any concerns before the next appointment. Dr. Valderrama has reviewed this note and agrees with this plan of care. This note was dictated using voice recognition software and make contain errors or omissions. [facility] History Medical History: Reports:: Gastroesophageal Reflux Disease(GERD), Hyperlipidemia, Hypertension, Migraine, MRSA Denies:: Asthma, Cancer, Chronic Obstructive Pulmonary Disease (COPD), Diabetes Mellitus Type 1, Diabetes Mellitus Type 2, Internal Pacemaker, Seizures *Have you ever received a pneumonia vaccine?: No *Have you received a flu vaccine this season?: No Other Medical History: Reports: Fibromyalgia, Hypothyroidism, Other. Denies: Blood Transfusion Reaction Laterality Cases: Right: Arthroscopy Knee, Bilateral: Carpal Tunnel Release, Tonsillectomy Other Surgeries: Yes: Appendectomy, Cholecystectomy, Hysterectomy-Total, Sinus Surgery, Other. No: Pacemaker Amputation: No Fractures: Yes (Right Foot ) - *Social History Smoking Status: Never smoker # Packs/Day (cigarettes): 0 #Yrs smoked (if former smoker): 0 Alcohol Intake: never Alcohol Intake Frequency:: other Substance Use Type: denies use *Occupational Status:: retired Housing: house Household Members: spouse *Travel in the last 8 weeks: None Family Hx:: Cancer, Heart Attack
== END ==
PROVIDERS: Visit Provider Student in an Organized Health Care Education/Training Program
DX: M51.16 Intervertebral disc disorders with radiculopathy, lumbar region (principal)
CPT/HCPCS: 99212; G0463

== ENCOUNTER → 2021-10-23 12:50 | Outpatient (POV) | payer MEDICARE, SELFPAY ==
[2021-10-23 13:13] VITALS: BP 146/99; PULSE 93; RESP 20; O2SAT 95; BMI 44.7
--- NOTE | 2021-10-23 13:20 | HMH.PAINSOAP ---
[facility] Pain Management SOAP Note Subjective:: Patient is a pleasant 65-year-old female who is here for medication refill and follow-up. Patient is currently being treated for degenerative disc disease of lumbar spine with lumbar radiculopathy symptoms, chronic neck pain. Patient is being managed with Percocet 5 mg 4 times a day and Flexeril 10 mg 3 times a day. Patient denies any side effects from the medications. Patient denies any changes to the location and type of pain. Patient states that this is adequately helping manage their pain. Rates pain as 6 out of 10. [facility] number [id number] with an active morphine equivalent 30. Drug screens have been reviewed and appropriate. Review of Systems: General: No recent weight changes, no fever, no sleep disturbances Respiratory: No cough, no shortness of air, no recurring pulmonary infections Cardiovascular/peripheral vascular: No chest pain, no palpitations, no edema, no shortness of breath Gastrointestinal: No new onset incontinence, normal bowel movements reported Genitourinary: No new onset incontinence Musculoskeletal: Low back pain, neck pain Psychiatric: [Normal mood/affect] Neurological: [Denies weakness in extremities], [denies balance issues] Objective:: Physical Exam: General: Alert and oriented x3, no acute distress, pleasant and cooperative, [on room air] Lungs: Respirations even and unlabored, symmetrical chest expansion Eyes: PERRL Musculoskeletal: Flexion and extension of cervical and lumbar [spine] somewhat guarded secondary to pain, [antalgic gait noted] Neurological: Speech clear, no gross sensory deficit Assessment:: Degenerative disc disease of the lumbar spine with lumbar radiculopathy symptoms Chronic neck pain Plan:: We will continue the patient's Percocet 5 mg 4 times a day and Flexeril 10 mg 3 times a day. We will provide the patient with 1 month of refills. We would like to see the patient back in 1 month for follow-up and reevaluation of chronic pain syndrome. Patient has been advised of risks of oversedation with the prescribed medication. Narcan has been offered to the patient in the event of oversedation. Patient has been advised that a family member should also be educated regarding administration of Narcan. Patient has been instructed to contact the clinic with any concerns before the next appointment. Dr. Valderrama has reviewed this note and agrees with this plan of care. This note was dictated using voice recognition software and make contain errors or omissions. [facility] History Medical History: Reports:: Gastroesophageal Reflux Disease(GERD), Hyperlipidemia, Hypertension, Migraine, MRSA Denies:: Asthma, Cancer, Chronic Obstructive Pulmonary Disease (COPD), Diabetes Mellitus Type 1, Diabetes Mellitus Type 2, Internal Pacemaker, Seizures *Have you ever received a pneumonia vaccine?: No *Have you received a flu vaccine this season?: No Other Medical History: Reports: Fibromyalgia, Hypothyroidism, Other. Denies: Blood Transfusion Reaction Laterality Cases: Right: Arthroscopy Knee, Bilateral: Carpal Tunnel Release, Tonsillectomy Other Surgeries: Yes: Appendectomy, Cholecystectomy, Hysterectomy-Total, Sinus Surgery, Other. No: Pacemaker Amputation: No Fractures: Yes (Right Foot ) - *Social History Smoking Status: Never smoker # Packs/Day (cigarettes): 0 #Yrs smoked (if former smoker): 0 Alcohol Intake: never Alcohol Intake Frequency:: other Substance Use Type: denies use *Occupational Status:: retired Housing: house Household Members: spouse *Travel in the last 8 weeks: None Family Hx:: Cancer, Heart Attack
== END ==
PROVIDERS: Visit Provider Student in an Organized Health Care Education/Training Program
DX: M51.16 Intervertebral disc disorders with radiculopathy, lumbar region (principal); M54.2 Cervicalgia; G89.29 Other chronic pain
CPT/HCPCS: 99212; G0463

== ENCOUNTER → 2021-11-20 13:47 | Outpatient (POV) | payer MEDICARE, SELFPAY ==
--- NOTE | 2021-11-20 14:32 | P.CONS_ITS ---
[facility] Pain Management SOAP Note Subjective:: Patient is a pleasant 65-year-old female who is here for medication refill and follow-up. Patient is currently being treated for degenerative disc disease of lumbar spine with lumbar radiculopathy symptoms, chronic neck pain. Patient is being managed with Percocet 5 mg 4 times a day and Flexeril 10 mg 3 times a day. Patient denies any side effects from the medications. Patient denies any changes to the location and type of pain. Patient states that this is adequately helping manage their pain. Rates pain as 6 out of 10. [facility] number [id number] with an active morphine equivalent 0. Drug screens have been reviewed and appropriate. Review of Systems: General: No recent weight changes, no fever, no sleep disturbances Respiratory: No cough, no shortness of air, no recurring pulmonary infections Cardiovascular/peripheral vascular: No chest pain, no palpitations, no edema, no shortness of breath Gastrointestinal: No new onset incontinence, normal bowel movements reported Genitourinary: No new onset incontinence Musculoskeletal: Low back pain Psychiatric: [Normal mood/affect] Neurological: [Denies weakness in extremities], [denies balance issues] Objective:: Physical Exam: General: Alert and oriented x3, no acute distress, pleasant and cooperative Lungs: Respirations even and unlabored, symmetrical chest expansion Eyes: PERRL Musculoskeletal: Flexion and extension of lumbar [spine] somewhat guarded secondary to pain, [antalgic gait noted] Neurological: Speech clear, no gross sensory deficit Assessment:: Degenerative disc disease of lumbar spine with lumbar radiculopathy symptoms, chronic neck pain Plan:: We will continue the patient's Percocet 5 mg 4 times a day and Flexeril 10 mg 3 times a day. We will provide the patient with 1 month of refills. We would like to see the patient back in 1 month for follow-up and reevaluation of chronic pain syndrome. Patient has been advised of risks of oversedation with the prescribed medication. Narcan has been offered to the patient in the event of oversedation. Patient has been advised that a family member should also be educated regarding administration of Narcan. Patient has been instructed to contact the clinic with any concerns before the next appointment. Dr. Valderrama has reviewed this note and agrees with this plan of care. This note was dictated using voice recognition software and make contain errors or omissions. [facility] History Medical History: Reports:: Gastroesophageal Reflux Disease(GERD), Hyperlipidemia, Hypertension, Migraine, MRSA Denies:: Asthma, Cancer, Chronic Obstructive Pulmonary Disease (COPD), Diabetes Mellitus Type 1, Diabetes Mellitus Type 2, Internal Pacemaker, Seizures *Have you ever received a pneumonia vaccine?: No *Have you received a flu vaccine this season?: No Other Medical History: Reports: Fibromyalgia, Hypothyroidism, Other. Denies: Blood Transfusion Reaction Laterality Cases: Right: Arthroscopy Knee, Bilateral: Carpal Tunnel Release, Tonsillectomy Other Surgeries: Yes: Appendectomy, Cholecystectomy, Hysterectomy-Total, Sinus Surgery, Other. No: Pacemaker Amputation: No Fractures: Yes (Right Foot ) - *Social History Smoking Status: Never smoker # Packs/Day (cigarettes): 0 #Yrs smoked (if former smoker): 0 Alcohol Intake: never Alcohol Intake Frequency:: other Substance Use Type: denies use *Occupational Status:: retired Housing: house Household Members: spouse *Travel in the last 8 weeks: Inside the [facility] Family Hx:: Cancer, Heart Attack
[2021-11-20 14:42] VITALS: BP 141/100; PULSE 77; RESP 18; TEMP 36.4; O2SAT 97; BMI 46.3
== END ==
PROVIDERS: Visit Provider Student in an Organized Health Care Education/Training Program
DX: M51.16 Intervertebral disc disorders with radiculopathy, lumbar region (principal); M54.2 Cervicalgia; G89.29 Other chronic pain
CPT/HCPCS: 99212; G0463

== ENCOUNTER → 2021-11-20 14:11 | Outpatient (CLI) | payer MEDICARE, SELFPAY ==
[2021-11-20 15:45] LABS: Barbiturates Screen,Urine Negative ng/ml (<200)
[2021-11-20 15:46] LABS: Benzodiazepines Screen,Urine Negative ng/ml (<200)
[2021-11-20 15:47] LABS: Amphetamine/Metha Screen,Urine Negative ng/ml (<1000); Methadone Screen,Urine Negative ng/ml (<300)
[2021-11-20 15:48] LABS: Cannabinoid Screen,Urine Negative ng/ml (<50); Cocaine Screen,Urine Negative ng/ml (<300)
[2021-11-20 15:49] LABS: Opiate Screen,Urine Positive ng/ml (<300)
[2021-11-20 15:50] LABS: Phencyclidine Screen,Urine Negative ng/ml (<25)
[2021-12-03 19:08] LABS: Opiates Negative (Cutoff=100); Oxycodone (GC/MS) 710 ng/mL (Cutoff=100)
== END ==
PROVIDERS: PCP Family Medicine; Visit Provider Student in an Organized Health Care Education/Training Program
DX: Z79.891 Long term (current) use of opiate analgesic (principal); M51.16 Intervertebral disc disorders with radiculopathy, lumbar region; M54.2 Cervicalgia; G89.29 Other chronic pain
CPT/HCPCS: 80305; 80361; 80365; 99212; G0463; G0480

== ENCOUNTER → 2021-12-18 13:37 | Outpatient (POV) | payer MEDICARE, SELFPAY ==
[2021-12-18 13:45] VITALS: BP 151/88; PULSE 79; RESP 18; TEMP 36.8; O2SAT 98; BMI 45.4
--- NOTE | 2021-12-18 15:51 | P.CONS_ITS ---
[facility] Pain Management SOAP Note Subjective:: Patient is a pleasant 66-year-old female who is here for medication refill and follow-up. Patient is currently being treated for degenerative disc disease of the lumbar spine with lumbar radiculopathy symptoms, chronic neck pain. Patient is being managed with Percocet 5 mg 4 times a day and Flexeril 10 mg 3 times a day. Patient denies any side effects from the medications. Patient denies any changes to the location and type of pain. Patient states that this is adequately helping manage their pain. Rates pain as 6 out of 10. [facility] number [id number] with an active morphine equivalent 60. Drug screens have been reviewed and appropriate. Review of Systems: General: No recent weight changes, no fever, no sleep disturbances Respiratory: No cough, no shortness of air, no recurring pulmonary infections Cardiovascular/peripheral vascular: No chest pain, no palpitations, no edema, no shortness of breath Gastrointestinal: No new onset incontinence, normal bowel movements reported Genitourinary: No new onset incontinence Musculoskeletal: Low back pain Psychiatric: [Normal mood/affect] Neurological: [Denies weakness in extremities], [denies balance issues] Objective:: Physical Exam: General: Alert and oriented x3, no acute distress, pleasant and cooperative Lungs: Respirations even and unlabored, symmetrical chest expansion Eyes: PERRL Musculoskeletal: Flexion and extension of lumbar [spine] somewhat guarded secondary to pain, [antalgic gait noted] Neurological: Speech clear, no gross sensory deficit Assessment:: Degenerative disc disease of lumbar spine with lumbar radiculopathy symptoms Plan:: We will continue the patient's Percocet 5 mg 4 times a day. We will provide the patient with 1 month of refills. We would like to see the patient back in 1 month for follow-up and reevaluation of chronic pain syndrome. Patient has been advised of risks of oversedation with the prescribed medication. Narcan has been offered to the patient in the event of oversedation. Patient has been advised that a family member should also be educated regarding administration of Narcan. Patient has been instructed to contact the clinic with any concerns before the next appointment. Dr. Valderrama has reviewed this note and agrees with this plan of care. This note was dictated using voice recognition software and make contain errors or omissions. [facility] History Medical History: Reports:: Gastroesophageal Reflux Disease(GERD), Hyperlipidemia, Hypertension, Migraine, MRSA Denies:: Asthma, Cancer, Chronic Obstructive Pulmonary Disease (COPD), Diabetes Mellitus Type 1, Diabetes Mellitus Type 2, Internal Pacemaker, Seizures *Have you ever received a pneumonia vaccine?: No *Have you received a flu vaccine this season?: No Other Medical History: Reports: Fibromyalgia, Hypothyroidism, Other. Denies: Blood Transfusion Reaction Laterality Cases: Right: Arthroscopy Knee, Bilateral: Carpal Tunnel Release, Tonsillectomy Other Surgeries: Yes: Appendectomy, Cholecystectomy, Hysterectomy-Total, Sinus Surgery, Other. No: Pacemaker Amputation: No Fractures: Yes (Right Foot ) - *Social History Smoking Status: Never smoker # Packs/Day (cigarettes): 0 #Yrs smoked (if former smoker): 0 Alcohol Intake: never Alcohol Intake Frequency:: other Substance Use Type: denies use *Occupational Status:: retired Housing: house Household Members: spouse *Travel in the last 8 weeks: None Family Hx:: Cancer, Heart Attack
== END ==
PROVIDERS: Visit Provider Student in an Organized Health Care Education/Training Program
DX: M51.16 Intervertebral disc disorders with radiculopathy, lumbar region (principal)
CPT/HCPCS: 99212; G0463

== ENCOUNTER → 2022-02-02 10:47 | Outpatient (POV) | payer MEDICARE, SELFPAY ==
--- NOTE | 2022-02-02 12:30 | HMH.PAINSOAP ---
[facility] Pain Management SOAP Note Subjective:: Patient is a pleasant 66-year-old female who is here for medication refill and follow-up. Patient is currently being treated for degenerative disease of lumbar spine with lumbar radiculopathy symptoms, chronic neck pain. Patient is being managed with Percocet 5 mg 4 times a day and Flexeril 10 mg 3 times a day. Patient denies any side effects from the medications. Patient denies any changes to the location and type of pain. Patient states that this is adequately helping manage their pain. Rates pain as 6 out of 10. [facility] number [id number] with an active morphine equivalent 30. Drug screens have been reviewed and appropriate. Review of Systems: General: No recent weight changes, no fever, no sleep disturbances Respiratory: No cough, no shortness of air, no recurring pulmonary infections Cardiovascular/peripheral vascular: No chest pain, no palpitations, no edema, no shortness of breath Gastrointestinal: No new onset incontinence, normal bowel movements reported Genitourinary: No new onset incontinence Musculoskeletal: Neck pain, low back pain Psychiatric: [Normal mood/affect] Neurological: [Denies weakness in extremities], [denies balance issues] Objective:: Physical Exam: General: Alert and oriented x3, no acute distress, pleasant and cooperative Lungs: Respirations even and unlabored, symmetrical chest expansion Eyes: PERRL Musculoskeletal: Flexion and extension of cervical and lumbar [spine] somewhat guarded secondary to pain, [antalgic gait noted] Neurological: Speech clear, no gross sensory deficit Assessment:: Degenerative disc disease of the cervical and lumbar spine with lumbar radiculopathy symptoms Plan:: We will continue the patient's Percocet 5 mg 4 times a day and Flexeril 10 mg 3 times a day. We will provide the patient with 1 month of refills. We would like to see the patient back in 1 month for follow-up and reevaluation of chronic pain syndrome. Patient has been advised of risks of oversedation with the prescribed medication. Narcan has been offered to the patient in the event of oversedation. Patient has been advised that a family member should also be educated regarding administration of Narcan. Patient has been instructed to contact the clinic with any concerns before the next appointment. Dr. Valderrama has reviewed this note and agrees with this plan of care. This note was dictated using voice recognition software and make contain errors or omissions. [facility] History Medical History: Reports:: Gastroesophageal Reflux Disease(GERD), Hyperlipidemia, Hypertension, Migraine, MRSA Denies:: Asthma, Cancer, Chronic Obstructive Pulmonary Disease (COPD), Diabetes Mellitus Type 1, Diabetes Mellitus Type 2, Internal Pacemaker, Seizures *Have you ever received a pneumonia vaccine?: No *Have you received a flu vaccine this season?: No Other Medical History: Reports: Fibromyalgia, Hypothyroidism, Other. Denies: Blood Transfusion Reaction Laterality Cases: Right: Arthroscopy Knee, Bilateral: Carpal Tunnel Release, Tonsillectomy Other Surgeries: Yes: Appendectomy, Cholecystectomy, Hysterectomy-Total, Sinus Surgery, Other. No: Pacemaker Amputation: No Fractures: Yes (Right Foot ) - *Social History Smoking Status: Never smoker # Packs/Day (cigarettes): 0 #Yrs smoked (if former smoker): 0 Alcohol Intake: never Alcohol Intake Frequency:: other Substance Use Type: denies use *Occupational Status:: retired Housing: house Household Members: spouse *Travel in the last 8 weeks: Inside the [facility] Family Hx:: Cancer, Heart Attack
[2022-02-02 12:42] VITALS: BP 122/84; PULSE 85; RESP 18; TEMP 36.5; O2SAT 96; BMI 44.9
== END ==
PROVIDERS: Visit Provider Student in an Organized Health Care Education/Training Program
DX: M51.16 Intervertebral disc disorders with radiculopathy, lumbar region (principal); M50.30 Other cervical disc degeneration, unspecified cervical region
CPT/HCPCS: 99212; G0463

== ENCOUNTER → 2022-03-05 13:01 | Outpatient (POV) | payer MEDICARE, SELFPAY ==
[2022-03-05 13:11] VITALS: BMI 45.8
--- NOTE | 2022-03-05 13:49 | HMH.PAINSOAP ---
[facility] Pain Management SOAP Note Subjective:: Patient is a pleasant 66-year-old female who is here for medication refill and follow-up. Patient is currently being treated for degenerative disc disease of the lumbar spine with lumbar radiculopathy symptoms, chronic neck pain. Patient is being managed with Percocet 5 mg 4 times a day and Flexeril 10 mg 3 times a day. Patient denies any side effects from the medications. Patient denies any changes to the location and type of pain. Patient states that this is adequately helping manage their pain. Rates pain as 7 out of 10. [facility] number [id number] with an active morphine equivalent 30. Drug screens have been reviewed and appropriate. Review of Systems: General: No recent weight changes, no fever, no sleep disturbances Respiratory: No cough, no shortness of air, no recurring pulmonary infections Cardiovascular/peripheral vascular: No chest pain, no palpitations, no edema, no shortness of breath Gastrointestinal: No new onset incontinence, normal bowel movements reported Genitourinary: No new onset incontinence Musculoskeletal: Low back pain, neck pain Psychiatric: [Normal mood/affect] Neurological: [Denies weakness in extremities], [denies balance issues] Objective:: Physical Exam: General: Alert and oriented x3, no acute distress, pleasant and cooperative Lungs: Respirations even and unlabored, symmetrical chest expansion Eyes: PERRL Musculoskeletal: Flexion and extension of lumbar [spine] somewhat guarded secondary to pain, [antalgic gait noted] Neurological: Speech clear, no gross sensory deficit Assessment:: Degenerative disc disease of the lumbar spine with lumbar radiculopathy symptoms Plan:: We will continue the patient's Percocet 5 mg 4 times a day and Flexeril 10 mg 3 times a day. We will provide the patient with 1 month of refills. We would like to see the patient back in 1 month for follow-up and reevaluation of chronic pain syndrome. Patient has been advised of risks of oversedation with the prescribed medication. Narcan has been offered to the patient in the event of oversedation. Patient has been advised that a family member should also be educated regarding administration of Narcan. Patient has been instructed to contact the clinic with any concerns before the next appointment. Dr. Valderrama has reviewed this note and agrees with this plan of care. This note was dictated using voice recognition software and make contain errors or omissions. [facility] History Medical History: Reports:: Gastroesophageal Reflux Disease(GERD), Hyperlipidemia, Hypertension, Migraine, MRSA Denies:: Asthma, Cancer, Chronic Obstructive Pulmonary Disease (COPD), Diabetes Mellitus Type 1, Diabetes Mellitus Type 2, Internal Pacemaker, Seizures *Have you ever received a pneumonia vaccine?: No *Have you received a flu vaccine this season?: No Other Medical History: Reports: Fibromyalgia, Hypothyroidism, Other. Denies: Blood Transfusion Reaction Laterality Cases: Right: Arthroscopy Knee, Bilateral: Carpal Tunnel Release, Tonsillectomy Other Surgeries: Yes: Appendectomy, Cholecystectomy, Hysterectomy-Total, Sinus Surgery, Other. No: Pacemaker Amputation: No Fractures: Yes (Right Foot ) - *Social History Smoking Status: Never smoker # Packs/Day (cigarettes): 0 #Yrs smoked (if former smoker): 0 Alcohol Intake: never Alcohol Intake Frequency:: other Substance Use Type: denies use *Occupational Status:: retired Housing: house Household Members: spouse *Travel in the last 8 weeks: None Family Hx:: Cancer, Heart Attack
== END ==
PROVIDERS: Visit Provider Student in an Organized Health Care Education/Training Program
DX: M51.16 Intervertebral disc disorders with radiculopathy, lumbar region (principal)
CPT/HCPCS: 99212; G0463

== ENCOUNTER → 2022-03-30 13:01 | Outpatient (POV) | payer MEDICARE, SELFPAY ==
--- NOTE | 2022-03-30 13:18 | EXP.PAIN.SOA ---
[facility] [place] Pain Management SOAP Note Subjective:: Patient is a pleasant 66-year-old female who presents today for follow-up and medication refill. We are currently treating the patient for degenerative disc disease of lumbar spine with lumbar radiculopathy symptoms, chronic neck pain. Today the patient rates her pain a 6 out of 10 she states the pain is primarily in her low back that radiates into her bilateral lower extremities. She states she has also been having some collarbone issues that she has seen her primary care provider and orthopedic physician on. Patient states she has had increased headaches due to this pain. She denies any new trauma or injury to the site. She denies any change to the location or type of pain she experiences. Patient is currently managed with Percocet 5 mg 4 times a day and Flexeril 10 mg 3 times a day. Patient denies any side effects from these medications. Patient states this medication does adequately manage her pain. Her Shabbir is [id number]. It has been reviewed and appropriate. Review of Systems: General: No recent weight changes, no fever, no sleep disturbances Respiratory: No cough, no shortness of air, no recurring pulmonary infections Cardiovascular/peripheral vascular: No chest pain, no palpitations, no edema, no shortness of breath Gastrointestinal: No new onset incontinence, normal bowel movements reported Genitourinary: No new onset incontinence Musculoskeletal: Low back pain, bilateral leg pain, collarbone pain Psychiatric: [Normal mood/affect] Neurological: [Denies weakness in extremities], [denies balance issues] Objective:: Physical Exam: General: Alert and oriented x3, no acute distress, pleasant and cooperative Lungs: Respirations even and unlabored, symmetrical chest expansion Eyes: PERRL Musculoskeletal: Flexion and extension of lumbar [spine] somewhat guarded secondary to pain, [antalgic gait noted] Neurological: Speech clear, no gross sensory deficit Assessment:: Degenerative disc disease lumbar spine with lumbar radiculopathy symptoms, chronic neck pain Plan:: Patient continues to have significant pain in her low back that radiates to her her bilateral lower extremities. I will refill the patient's Percocet 5 mg 4 times a day as well as her Flexeril 10 mg 3 times daily and provide a 1 month supply of these medications. I have counseled the patient that injective therapy may help relieve some of her pain symptoms including a occipital nerve block to help with headaches. Patient is scheduled to see her primary care physician in the next week and will let us know how this progresses. Patient will return to clinic in 1 month for follow-up, reevaluation of symptoms and medication refill. Patient has been advised of risks of oversedation with the prescribed medication. Narcan has been offered to the patient in the event of oversedation. Patient has been advised that a family member should also be educated regarding administration of Narcan. Patient has been instructed to contact the clinic with any concerns before the next appointment. Dr. Valderrama has reviewed this note and agrees with this plan of care. This note was dictated using voice recognition software and make contain errors or omissions. PFSH PFSH Social History Smoking Status: Never smoker second hand exposure: No alcohol intake: never substance use type: denies use current occupational status: retired Travel in the last 8 weeks: None household members: spouse housing: house caffeine: Yes
[2022-03-30 13:21] VITALS: BP 123/84; PULSE 74; RESP 18; TEMP 36.8; O2SAT 99; BMI 45.3
== END | disposition home or self-care (01) ==
PROVIDERS: Visit Provider Nurse Practitioner Family
DX: M51.16 Intervertebral disc disorders with radiculopathy, lumbar region (principal); M54.2 Cervicalgia; G89.29 Other chronic pain
CPT/HCPCS: 99212; G0463

== ENCOUNTER → 2022-04-27 13:52 | Outpatient (POV) | payer MEDICARE, SELFPAY ==
[2022-04-27 14:01] VITALS: BP 129/85; PULSE 75; RESP 18; TEMP 36.6; O2SAT 97; BMI 44.8
--- NOTE | 2022-04-27 16:09 | EXP.PAIN.SOA ---
[facility] Pain Management SOAP Note Subjective:: Patient is a pleasant 66-year-old female who is here for medication refill and follow-up. Patient is currently being treated for degenerative disease of lumbar spine with lumbar radiculopathy symptoms, chronic neck pain. Patient also had the minimally invasive lumbar decompression procedure in 2019 at bilateral L3-L4, L4-L5, L5-S1. Patient is being managed with Percocet 5 mg 4 times a day. Patient denies any side effects from the medications. Patient denies any changes to the location and type of pain. Patient states that this is adequately helping manage their pain. Rates pain as 6 out of 10. [facility] number [phone] with an active morphine equivalent 30. Drug screens have been reviewed and appropriate. Patient also presents today with worsening right occiput pain. This has been causing her intermittent headache. She rates her pain originating from her right occiput that radiates down to her right shoulder and lateral neck. We have discussed with her that she is a good candidate for occipital nerve block on her last visit. She is wanting to schedule this today. Review of Systems: General: No recent weight changes, no fever, no sleep disturbances Respiratory: No cough, no shortness of air, no recurring pulmonary infections Cardiovascular/peripheral vascular: No chest pain, no palpitations, no edema, no shortness of breath Gastrointestinal: No new onset incontinence, normal bowel movements reported Genitourinary: No new onset incontinence Musculoskeletal: Low back pain, right occiput pain Psychiatric: [Normal mood/affect] Neurological: [Denies weakness in extremities], [denies balance issues] Objective:: Physical Exam: General: Alert and oriented x3, no acute distress, pleasant and cooperative Lungs: Respirations even and unlabored, symmetrical chest expansion Eyes: PERRL Musculoskeletal: Flexion and extension of lumbar [spine] somewhat guarded secondary to pain, [antalgic gait noted]; tenderness to palpation around the right occiput Neurological: Speech clear, no gross sensory deficit Assessment:: Degenerative disc disease of the lumbar spine with lumbar radiculopathy symptoms, spinal stenosis with neurogenic claudication, right occipital neuralgia Plan:: We will schedule the patient for a right occipital nerve block. I will continue the patient's Percocet 5 mg 4 times a day and provide the patient with 1 month worth of refill. I am also recommending the patient to try capsaicin and diclofenac gel for her neck and shoulder pain. Patient has been instructed to contact the clinic with any concerns before the next appointment. Dr. Valderrama has reviewed this note and agrees with this plan of care. This note was dictated using voice recognition software and make contain errors or omissions. PFSH PFSH Social History Smoking Status: Never smoker second hand exposure: No alcohol intake: never substance use type: denies use current occupational status: retired Travel in the last 8 weeks: None household members: spouse housing: house caffeine: Yes
== END | disposition home or self-care (01) ==
PROVIDERS: Visit Provider Nurse Practitioner Family
DX: M51.16 Intervertebral disc disorders with radiculopathy, lumbar region (principal); M54.2 Cervicalgia; G89.29 Other chronic pain
CPT/HCPCS: 99212; G0463

== ENCOUNTER → 2022-05-28 13:20 | Outpatient (POV) | payer MEDICARE, SELFPAY ==
--- NOTE | 2022-05-28 13:56 | EXP.PAIN.SOA ---
[facility] Pain Management SOAP Note Subjective:: Patient is a pleasant 66-year-old female who presents today for medication refill and follow-up. We are currently treating the patient for degenerative disc disease of lumbar spine with lumbar radiculopathy symptoms, chronic neck pain. Today the patient rates her pain a 8 out of 10. She states the pain is in her low back that radiates into her lower extremities as well as worsening neck pain. Patient states the neck pain that coincides with swollen lymph nodes has been going on for a long time however it does seem like it is worsened. Patient does state that she she has been told that she does have arthritis throughout her joints and spine. She was previously going to Dr. Cornejo who ordered a MRI and referral to a specialist. Patient states she is going to call and follow-up as well as seeing her primary care provider next week. Patient does have a history of minimally invasive lumbar decompression in 2019 at bilateral L3-4, L4-5 and L5-S1. Patient is currently managed with Percocet 5 mg 4 times a day. Patient denies any side effects from this medication. She states this medication does help take the edge off her pain symptoms. She is requesting a refill at today's visit. Patient also takes cyclobenzaprine 10 mg 3 times daily. Patient states she also needs a refill on this medication. Patient states she did recently start a new medication to help with possible weight loss. Her Shabbir is [phone] with a morphine equivalent of 30. It has been reviewed and appropriate. Review of Systems: General: No recent weight changes, no fever, no sleep disturbances Respiratory: No cough, no shortness of air, no recurring pulmonary infections Cardiovascular/peripheral vascular: No chest pain, no palpitations, no edema, no shortness of breath Gastrointestinal: No new onset incontinence, normal bowel movements reported Genitourinary: No new onset incontinence Musculoskeletal: Neck pain, low back pain Psychiatric: [Normal mood/affect] Neurological: [Denies weakness in extremities], [denies balance issues] Objective:: Physical Exam: General: Alert and oriented x3, no acute distress, pleasant and cooperative Lungs: Respirations even and unlabored, symmetrical chest expansion Eyes: PERRL Musculoskeletal: Flexion and extension of cervical lumbar [spine] somewhat guarded secondary to pain, [antalgic gait noted] Neurological: Speech clear, no gross sensory deficit Assessment:: Degenerative disc disease of lumbar spine with lumbar radiculopathy symptoms, chronic neck pain Plan:: Patient continues to experience significant pain in her low back and neck. Patient did have limited range of motion of her cervical and lumbar spine during today's visit. I will refill the patient's Percocet 5 mg 4 times a day and Flexeril 10 mg 3 times daily and provide 1 month supply of this medication. I will also prescribe the patient a compounding cream at today's visit. We will follow-up with the patient in 1 month. Patient will return to clinic in 1 month for reevaluation of symptoms, medication refill and follow-up. Patient has been advised of risks of oversedation with the prescribed medication. Narcan has been offered to the patient in the event of oversedation. Patient has been advised that a family member should also be educated regarding administration of Narcan. Patient has been instructed to contact the clinic with any concerns before the next appointment. Dr. Valderrama has reviewed this note and agrees with this plan of care. This note was dictated using voice recognition software and make contain errors or omissions. PFSH PFSH Social History Smoking Status: Never smoker second hand exposure: No alcohol intake: never substance use type: denies use current occupational status: retired Travel in the last 8 weeks: None household members: spouse housing: house caffeine: Yes
[2022-05-28 14:03] VITALS: BP 146/73; PULSE 74; RESP 18; O2SAT 97; BMI 44.8
[2022-05-28 17:41] LABS: Barbiturates Screen,Urine Negative ng/ml (<200)
[2022-05-28 17:42] LABS: Amphetamine/Metha Screen,Urine Negative ng/ml (<1000); Benzodiazepines Screen,Urine Negative ng/ml (<200)
[2022-05-28 17:43] LABS: Cannabinoid Screen,Urine Negative ng/ml (<50); Methadone Screen,Urine Negative ng/ml (<300)
[2022-05-28 17:44] LABS: Cocaine Screen,Urine Negative ng/ml (<300)
[2022-05-28 17:45] LABS: Opiate Screen,Urine Negative ng/ml (<300); Phencyclidine Screen,Urine Negative ng/ml (<25)
[2022-06-04 16:12] LABS: Opiates Negative (Cutoff=100); Oxycodone (GC/MS) 266 ng/mL (Cutoff=100); Oxymorphone (GC/MS) 213 ng/mL (Cutoff=100)
== END | disposition home or self-care (01) ==
PROVIDERS: PCP Family Medicine; Visit Provider Nurse Practitioner Family
DX: M51.16 Intervertebral disc disorders with radiculopathy, lumbar region (principal); Z79.891 Long term (current) use of opiate analgesic; M54.2 Cervicalgia; G89.29 Other chronic pain
CPT/HCPCS: 80305; 80361; 80365; 99212; G0463; G0480

== ENCOUNTER → 2022-07-02 14:54 | Outpatient (POV) | payer MEDICARE, SELFPAY ==
[2022-07-02 15:00] VITALS: BP 108/78; PULSE 70; RESP 18; O2SAT 94; BMI 44.8
--- NOTE | 2022-07-02 15:04 | EXP.PAIN.SOA ---
[facility] Pain Management SOAP Note Subjective:: TodayPatient is a pleasant 66-year-old female who presents today for medication refill and follow-up. We are currently treating the patient for degenerative disc disease of lumbar spine with lumbar radiculopathy symptoms, chronic neck pain. Today the patient rates her pain a 5 out of 10. Patient denies any new trauma or injury. Patient denies any change location or type of pain she experiences. Patient has chronic pain in her neck and lymph node area along her right side. Patient is currently managed with compounding cream that provides significant improvement as well as Percocet 5 mg 4 times a day. Patient denies any side effects from this medication. She states this medication does help her pain symptoms. She is requesting a refill at today's visit. Patient is also prescribed cyclobenzaprine 10 mg 3 times a day. Patient was previously going to see Dr. Cornejo in [place] for a arthritis specialist however she states she has not been there. Patient does have a history of a mild procedure in 2019. Her Shabbir is [id number]. Its been reviewed and appropriate. Review of Systems: General: No recent weight changes, no fever, no sleep disturbances Respiratory: No cough, no shortness of air, no recurring pulmonary infections Cardiovascular/peripheral vascular: No chest pain, no palpitations, no edema, no shortness of breath Gastrointestinal: No new onset incontinence, normal bowel movements reported Genitourinary: No new onset incontinence Musculoskeletal: Low back pain, neck pain Psychiatric: [Normal mood/affect] Neurological: [Denies weakness in extremities], [denies balance issues] Objective:: Physical Exam: General: Alert and oriented x3, no acute distress, pleasant and cooperative Lungs: Respirations even and unlabored, symmetrical chest expansion Eyes: PERRL Musculoskeletal: Flexion and extension of cervical, lumbar [spine] somewhat guarded secondary to pain, [antalgic gait noted] Neurological: Speech clear, no gross sensory deficit Assessment:: Degenerative disc disease of lumbar spine with lumbar radiculopathy symptoms, chronic neck pain Plan:: Patient continues to experience significant pain in her neck and back that radiates into her lower extremities. Patient did have limited range of motion of her cervical and lumbar spine during today's visit. I have discussed with the patient that she may benefit from cervical and lumbar epidural steroid injections. Risk and benefits were discussed with the patient. Patient does state that her neck is more problematic than her back at this time and she would like to proceed forward with the cervical epidural. I have also counseled the patient that if her back continues to be a problem that we may look into trying a caudal epidural as she stated a previous attempt for a lumbar epidural did not go as well due to scar tissue. I have also discussed with patient that we may do diagnostic trigger point injections of her cervical paraspinous and trapezius along the right side in the future. I will refill the patient's cyclobenzaprine 10 mg 3 times a day, and Percocet 5 mg 4 times a day and provide a 1 month supply of these medications. We will schedule the patient for a KITTY C6-C7. Patient has been advised of risks of oversedation with the prescribed medication. Narcan has been offered to the patient in the event of oversedation. Patient has been advised that a family member should also be educated regarding administration of Narcan. Patient has been instructed to contact the clinic with any concerns before the next appointment. Dr. Valderrama has reviewed this note and agrees with this plan of care. This note was dictated using voice recognition software and make contain errors or omissions. [facility] Disclaimer: The information contained in this section may have been updated after the patient was seen, as this information can be updated by other users. Social H
== END | disposition home or self-care (01) ==
PROVIDERS: Visit Provider Nurse Practitioner Family
DX: M51.16 Intervertebral disc disorders with radiculopathy, lumbar region (principal); G89.29 Other chronic pain
CPT/HCPCS: 99212; G0463

== ENCOUNTER 2022-07-07 10:50 | Day surgery (SDC) | payer MEDICARE, SELFPAY ==
[2022-07-07 11:04] VITALS: BP 185/110; PULSE 74; RESP 18; TEMP 36.6; O2SAT 99; BMI 44.8
[2022-07-07 11:19] VITALS: BP 142/77; PULSE 68; RESP 18; O2SAT 99
--- NOTE | 2022-07-07 12:50 | P.PCN_ITS ---
Procedure Date: 07/07/22 Time: 12:00 Anesthesiologist:: Eyad Hernandez CRNA Complications:: None Pre-procedure Diagnosis:: Degenerative disc disease cervical spine multilevels. Cervical radiculopathy Post-procedure Diagnosis:: Same. Indications for Procedure:: Very pleasant 66-year-old female comes our clinic today for cervical epidural steroid injection. Patient complains of chronic cervical neck pain with cervical radicular symptoms in the bilateral arms. She rates her pain 8/10. Procedure Details:: Procedure:Cervical epidural steroid injection Informed consent was obtained and the risks and benefits of the procedure were explained to the patient. The patient was taken to the procedure room and noninvasive monitors placed, including noninvasive blood pressure cuff and pulse oximeter. The neck was prepped using Chloraprep as a cleansing solution. The C6- C7 interspace was viewed using fluroscopy. The skin and subcutaneous tissues were anesthetized using lidocaine 1.5% and a 25-gauge needle. After this an 18- gauge Touhy epidural needle was placed into the C6-C7 interspace under fluroscopy guidance and advanced using loss of resistance to air until the epidural space was encountered. After confirmation of needle placement in the epidural space using contrast dye, a solution containing normal saline, 2 mL and Depo-Medrol 80 mg was incrementally injected into the cervical epidural space.~ The patient tolerated the procedure well with no complications. The patient was observed in the Pain Clinic and then discharged home neurologically intact. Plan and Disposition:: Patient was discharged without incident
== END 2022-07-07 11:19 | disposition home or self-care (01) ==
PROVIDERS: PCP Family Medicine; Visit Provider Nurse Anesthetist, Certified Registered
DX: M50.123 Cervical disc disorder at C6-C7 level with radiculopathy (principal); G89.29 Other chronic pain
CPT/HCPCS: 62321; J1040; Q9966

== ENCOUNTER → 2022-08-03 13:24 | Outpatient (POV) | payer MEDICARE, SELFPAY ==
--- NOTE | 2022-08-03 13:38 | EXP.PAIN.SOA ---
[facility] Pain Management SOAP Note Subjective:: Patient is a pleasant 66-year-old female who presents today for follow-up of cervical epidural steroid injection at C6-C7 on 07/07/2022. We are currently treating the patient for degenerative disc disease of cervical and lumbar spine with cervical and lumbar radiculopathy symptoms, chronic neck pain, cervical spondylosis, cervical facet arthropathy. Patient states she has had at least 75% improvement following this injection lasting 2 to 3 days. She does rate her pain a 6 out of 10 today. Patient denies any new trauma or injury. Patient denies any change location or type of pain she experiences. Patient states she continues to experience significant pain in her upper back. Patient is interested in future injections however at this time she would like to wait due to the cost. Patient is currently managed with Percocet 5 mg 4 times a day. Patient denies any side effects from this medication. Patient denies any change location or type of pain she experiences. Patient is requesting refill of this medication during today's visit. Her Shabbir is [id number]. Its been reviewed and appropriate. Review of Systems: General: No recent weight changes, no fever, no sleep disturbances Respiratory: No cough, no shortness of air, no recurring pulmonary infections Cardiovascular/peripheral vascular: No chest pain, no palpitations, no edema, no shortness of breath Gastrointestinal: No new onset incontinence, normal bowel movements reported Genitourinary: No new onset incontinence Musculoskeletal: Upper back pain/neck pain Psychiatric: [Normal mood/affect] Neurological: [Denies weakness in extremities], [denies balance issues] Objective:: Physical Exam: General: Alert and oriented x3, no acute distress, pleasant and cooperative Lungs: Respirations even and unlabored, symmetrical chest expansion Eyes: PERRL Musculoskeletal: Flexion and extension of cervical [spine] somewhat guarded secondary to pain, [antalgic gait noted] Neurological: Speech clear, no gross sensory deficit ORT score updated with low risk Assessment:: Degenerative disc disease of cervical and lumbar spine with cervical and lumbar radiculopathy symptoms, chronic neck pain, cervical spondylosis, cervical facet arthropathy Plan:: Patient continues to experience significant pain in her upper back/neck. Patient did have limited range of motion of her cervical spine. I have discussed with the patient that she may benefit from a second cervical epidural steroid injection however at this time she would like to wait due to the increased cost she has to pay with each injection. I will refill the patient's Percocet 5 mg 4 times a day and provide a 1 month supply of this medication. Patient will return to clinic in 1 month for reevaluation of symptoms, medication refill and follow-up. Patient has been advised of risks of oversedation with the prescribed medication. Narcan has been offered to the patient in the event of oversedation. Patient has been advised that a family member should also be educated regarding administration of Narcan. Patient has been instructed to contact the clinic with any concerns before the next appointment. Dr. Valderrama has reviewed this note and agrees with this plan of care. This note was dictated using voice recognition software and make contain errors or omissions. [facility] Disclaimer: The information contained in this section may have been updated after the patient was seen, as this information can be updated by other users. Medical History (Updated 07/07/22 @ 11:07 by Alma Thao RN) Fibromyalgia GERD (gastroesophageal reflux disease) Gout High blood pressure Hypothyroidism Family History (Updated 07/07/22 @ 11:07 by Alma Thao RN) Other No significant family history Social History Smoking Status: Never smoker second hand exposure:
[2022-08-03 13:43] VITALS: BP 125/54; PULSE 68; RESP 18; O2SAT 98; BMI 44.8
[2022-08-03 15:19] LABS: Amphetamine/Metha Screen,Urine Negative ng/ml (<1000)
[2022-08-03 15:20] LABS: Barbiturates Screen,Urine Negative ng/ml (<200); Benzodiazepines Screen,Urine Negative ng/ml (<200)
[2022-08-03 15:21] LABS: Cannabinoid Screen,Urine Negative ng/ml (<50)
[2022-08-03 15:22] LABS: Cocaine Screen,Urine Negative ng/ml (<300); Methadone Screen,Urine Negative ng/ml (<300)
[2022-08-03 15:23] LABS: Opiate Screen,Urine Positive ng/ml (<300); Phencyclidine Screen,Urine Negative ng/ml (<25)
[2022-08-10 00:04] LABS: Opiates Negative (Cutoff=100); Oxycodone (GC/MS) 1317 ng/mL (Cutoff=100); Oxymorphone (GC/MS) 282 ng/mL (Cutoff=100)
== END | disposition home or self-care (01) ==
PROVIDERS: PCP Family Medicine; Visit Provider Nurse Practitioner Family
DX: M50.123 Cervical disc disorder at C6-C7 level with radiculopathy (principal); Z79.891 Long term (current) use of opiate analgesic; M51.16 Intervertebral disc disorders with radiculopathy, lumbar region; M47.22 Other spondylosis with radiculopathy, cervical region; G89.29 Other chronic pain
CPT/HCPCS: 80305; 80361; 80365; 99212; G0463; G0480

== ENCOUNTER → 2022-09-02 13:40 | Outpatient (POV) | payer MEDICARE, SELFPAY ==
[2022-09-02 14:16] VITALS: BP 135/75; PULSE 77; RESP 18; O2SAT 97; BMI 43.2
--- NOTE | 2022-09-02 14:38 | EXP.PAIN.SOA ---
[facility] Pain Management SOAP Note Subjective:: Patient is a pleasant 66-year-old female who presents today for follow-up and medication refill. We are currently treating the patient for degenerative disc disease of cervical and lumbar spine with cervical and lumbar radiculopathy symptoms, chronic neck pain, cervical spondylosis, cervical facet arthropathy. Today she rates her pain a 7 out of 10. Patient denies any new trauma or injury. Patient denies any change to location or type of pain she experiences. Patient states she continues to have chronic neck pain that radiates into her shoulder as well as low back pain and knee pain. Patient does describe this as a dull aching sensation that is worse with increased activity. Patient states that she does have some numbness in her feet as well. Patient is currently prescribed Percocet 5 mg 4 times a day. Patient denies any side effects from this medication. She states this medication does help manage some of her pain symptoms. She is requesting a refill at today's visit. Patient has had multiple injections in the past with some providing significant improvement and others very minimal. Patient states she has been taking cyclobenzaprine 10 mg 3 times daily however her primary care doctor has recommended her to stop taking this medication at this time that he is prescribing her something different. Patient states she will let us know if this changes and she needs an additional refill. Her Shabbir is [phone]. Its been reviewed and appropriate. Review of Systems: General: No recent weight changes, no fever, no sleep disturbances Respiratory: No cough, no shortness of air, no recurring pulmonary infections Cardiovascular/peripheral vascular: No chest pain, no palpitations, no edema, no shortness of breath Gastrointestinal: No new onset incontinence, normal bowel movements reported Genitourinary: No new onset incontinence Musculoskeletal: Neck pain, back pain Psychiatric: [Normal mood/affect] Neurological: [Denies weakness in extremities], [denies balance issues] Objective:: Physical Exam: General: Alert and oriented x3, no acute distress, pleasant and cooperative Lungs: Respirations even and unlabored, symmetrical chest expansion Eyes: PERRL Musculoskeletal: Flexion and extension of cervical, lumbar [spine] somewhat guarded secondary to pain, [antalgic gait noted] Neurological: Speech clear, no gross sensory deficit Assessment:: Degenerative disc disease of cervical and lumbar spine with cervical and lumbar radiculopathy symptoms, chronic neck pain, cervical spondylosis, cervical facet arthropathy, knee pain, shoulder pain Plan:: Patient continues to experience significant pain throughout her back as well as her knee and shoulders. I will refill the patient's Percocet 5 mg 4 times a day and provide a 1 month supply of this medication. I have discussed with the patient that she may be a beneficial candidate for a pain pump trial. Risk and benefits and educational materials were reviewed at today's visit. At this time the patient would like to review the additional material and let us know. Patient will return to clinic in 1 month for reevaluation of symptoms, medication refill and follow-up. Patient has been advised of risks of oversedation with the prescribed medication. Narcan has been offered to the patient in the event of oversedation. Patient has been advised that a family member should also be educated regarding administration of Narcan. Patient has been instructed to contact the clinic with any concerns before the next appointment. Dr. Valderrama has reviewed this note and agrees with this plan of care. This note was dictated using voice recognition software and make contain errors or omissions. [facility] Disclaimer: The information contained in this section may have been updated after the patient was seen, as this information can be updated by other users. Medical History (Updated 07/07/22 @
== END | disposition home or self-care (01) ==
PROVIDERS: PCP Family Medicine; Visit Provider Nurse Practitioner Family
DX: M51.16 Intervertebral disc disorders with radiculopathy, lumbar region (principal); M50.10 Cervical disc disorder with radiculopathy, unspecified cervical region; M47.22 Other spondylosis with radiculopathy, cervical region; M25.519 Pain in unspecified shoulder; M25.569 Pain in unspecified knee; G89.29 Other chronic pain
CPT/HCPCS: 99212; G0463

== ENCOUNTER → 2022-09-30 13:07 | Outpatient (POV) | payer MEDICARE, SELFPAY ==
--- NOTE | 2022-09-30 13:33 | EXP.PAIN.SOA ---
[facility] Pain Management SOAP Note Subjective:: Patient is a pleasant 66-year-old female who presents today for follow-up and medication refill. We are currently treating the patient for degenerative disc disease of cervical and lumbar spine with cervical and lumbar radiculopathy symptoms, chronic neck pain, cervical spondylosis, cervical facet arthropathy. Today she rates her pain a 7 out of 10. She states she has been under the weather since this past weekend with a sinus infection. She does state that she was unable to get out of bed yesterday due to her increased symptoms. Patient is currently managed with Percocet 5 mg 4 times a day. Patient denies any side effects from this medication. She was previously also taking cyclobenzaprine 10 mg 3 times a day however her primary care doctor recommended to stop taking this medication. She does state that she has had increased pain following stopping this medication and is requesting a refill at today's visit. Her Shabbir is [id number]. Its been reviewed and appropriate. Review of Systems: General: No recent weight changes, no fever, no sleep disturbances Respiratory: No cough, no shortness of air, no recurring pulmonary infections Cardiovascular/peripheral vascular: No chest pain, no palpitations, no edema, no shortness of breath Gastrointestinal: No new onset incontinence, normal bowel movements reported Genitourinary: No new onset incontinence Musculoskeletal: Low back pain, neck pain Psychiatric: [Normal mood/affect] Neurological: [Denies weakness in extremities], [denies balance issues] Objective:: Physical Exam: General: Alert and oriented x3, no acute distress, pleasant and cooperative Lungs: Respirations even and unlabored, symmetrical chest expansion Eyes: PERRL Musculoskeletal: Flexion and extension of cervical, lumbar [spine] somewhat guarded secondary to pain, [antalgic gait noted] Neurological: Speech clear, no gross sensory deficit Assessment:: Degenerative disc disease of cervical and lumbar spine with cervical and lumbar radiculopathy symptoms, chronic neck pain, cervical spondylosis, cervical facet arthropathy Plan:: Patient is currently experiencing additional symptoms related to a sinus infection. I will send in a order prednisone 20 mg twice daily for 5 days. I will also refill the patient's Percocet 5 mg 4 times a day and Flexeril 10 mg 3 times daily and provide a 1 month supply of these medications. Patient will return to clinic in 1 month for reevaluation of symptoms, medication refill and plan of care. Patient has been advised of risks of oversedation with the prescribed medication. Narcan has been offered to the patient in the event of oversedation. Patient has been advised that a family member should also be educated regarding administration of Narcan. Patient has been instructed to contact the clinic with any concerns before the next appointment. Dr. Valderrama has reviewed this note and agrees with this plan of care. This note was dictated using voice recognition software and make contain errors or omissions. [facility] Disclaimer: The information contained in this section may have been updated after the patient was seen, as this information can be updated by other users. Medical History (Updated 07/07/22 @ 11:07 by Alma Thao RN) Fibromyalgia GERD (gastroesophageal reflux disease) Gout High blood pressure Hypothyroidism Family History (Updated 07/07/22 @ 11:07 by Alma Thao RN) Other No significant family history Social History Smoking Status: Never smoker second hand exposure: No alcohol intake: never substance use type: denies use current occupational status: retired Travel in the last 8 weeks: None household members: spouse housing: house caffeine: Yes
[2022-09-30 15:03] VITALS: BP 120/80; PULSE 78; RESP 20; BMI 42.5
== END | disposition home or self-care (01) ==
PROVIDERS: PCP Family Medicine; Visit Provider Nurse Practitioner Family
DX: M51.16 Intervertebral disc disorders with radiculopathy, lumbar region (principal); M50.10 Cervical disc disorder with radiculopathy, unspecified cervical region; M47.22 Other spondylosis with radiculopathy, cervical region
CPT/HCPCS: 99212; G0463

== ENCOUNTER → 2022-11-02 12:56 | Outpatient (POV) | payer MEDICARE, SELFPAY ==
[2022-11-02 13:44] VITALS: BP 109/69; PULSE 75; RESP 18; O2SAT 97; BMI 40.7
--- NOTE | 2022-11-02 13:56 | EXP.PAIN.SOA ---
[facility] Pain Management SOAP Note Subjective:: Patient is a pleasant 66-year-old female who presents today for medication refill and follow-up. We are currently treating the patient for degenerative disc disease of cervical and lumbar spine with cervical and lumbar radiculopathy symptoms, chronic neck pain, cervical spondylosis, cervical facet arthropathy. Today she rates her pain a 7 out of 10. Patient denies any new injury or trauma. Patient denies any change location or type of pain she experiences. Patient was recently started on Flexeril 10 mg 3 times a day and she states this has provided additional relief. She does continue to use her compounding cream and is prescribed Percocet 5 mg 4 times a day. Patient denies any side effects from this medication. Her Shabbir is [phone]. Its been reviewed and appropriate. Review of Systems: General: No recent weight changes, no fever, no sleep disturbances Respiratory: No cough, no shortness of air, no recurring pulmonary infections Cardiovascular/peripheral vascular: No chest pain, no palpitations, no edema, no shortness of breath Gastrointestinal: No new onset incontinence, normal bowel movements reported Genitourinary: No new onset incontinence Musculoskeletal: Low back pain Psychiatric: [Normal mood/affect] Neurological: [Denies weakness in extremities], [denies balance issues] Objective:: Physical Exam: General: Alert and oriented x3, no acute distress, pleasant and cooperative Lungs: Respirations even and unlabored, symmetrical chest expansion Eyes: PERRL Musculoskeletal: Flexion and extension of lumbar [spine] somewhat guarded secondary to pain, [antalgic gait noted] Neurological: Speech clear, no gross sensory deficit Assessment:: Degenerative disc disease of cervical and lumbar spine with cervical and lumbar radiculopathy symptoms, chronic neck pain, cervical spondylosis, cervical facet arthropathy Plan:: Patient is doing well with her current medication regimen. I will refill her Percocet 5 mg 4 times a day and Flexeril 10 mg 3 times a day and provide a 1 month supply of this medication. Patient will return to clinic in 1 month for reevaluation of symptoms, medication refill and follow-up. Patient has been advised of risks of oversedation with the prescribed medication. Narcan has been offered to the patient in the event of oversedation. Patient has been advised that a family member should also be educated regarding administration of Narcan. Patient has been instructed to contact the clinic with any concerns before the next appointment. Dr. Valderrama has reviewed this note and agrees with this plan of care. This note was dictated using voice recognition software and make contain errors or omissions. [facility] Disclaimer: The information contained in this section may have been updated after the patient was seen, as this information can be updated by other users. Medical History (Updated 07/07/22 @ 11:07 by Alma Thao RN) Fibromyalgia GERD (gastroesophageal reflux disease) Gout High blood pressure Hypothyroidism Family History (Updated 07/07/22 @ 11:07 by Alma Thao RN) Other No significant family history Social History Smoking Status: Never smoker second hand exposure: No alcohol intake: never substance use type: denies use current occupational status: retired Travel in the last 8 weeks: None household members: spouse housing: house caffeine: Yes
== END | disposition home or self-care (01) ==
PROVIDERS: PCP Family Medicine; Visit Provider Nurse Practitioner Family
DX: M51.16 Intervertebral disc disorders with radiculopathy, lumbar region (principal); M50.10 Cervical disc disorder with radiculopathy, unspecified cervical region; M47.22 Other spondylosis with radiculopathy, cervical region
CPT/HCPCS: 99212; G0463

== ENCOUNTER → 2022-12-03 14:30 | Outpatient (POV) | payer MEDICARE, SELFPAY ==
--- NOTE | 2022-12-03 14:35 | EXP.PAIN.SOA ---
[facility] Pain Management SOAP Note Subjective:: Patient is a pleasant 66-year-old female who presents today for medication refill and follow-up.? We are currently treating the patient for degenerative disc disease of cervical and lumbar spine with cervical and lumbar radiculopathy symptoms, chronic neck pain, cervical spondylosis, cervical facet arthropathy.? Today she rates her pain a 8 out of 10.? She states earlier she was sitting in a chair and went to get up and fell back down into the chair hitting her back. She states she is experiencing pretty good soreness right now but does not believe she is done anything such as a fracture. She does state that its good and aching right now. She is currently managed with Flexeril 10 mg 3 times a day Percocet 5 mg 4 times a day along with compounding cream.? Patient denies any side effects from these medications.? She is requesting if there is any way possible that we could increase her pain medication. Her Shabbir is [id number].? Its been reviewed and appropriate. Review of Systems: General: No recent weight changes, no fever, no sleep disturbances Respiratory: No cough, no shortness of air, no recurring pulmonary infections Cardiovascular/peripheral vascular: No chest pain, no palpitations,? no edema, no shortness of breath Gastrointestinal: No new onset incontinence, normal bowel movements reported Genitourinary: No new onset incontinence Musculoskeletal: Low back pain Psychiatric: [Normal mood/affect] Neurological: [Denies weakness in extremities], [denies balance issues] Objective:: Physical Exam: General: Alert and oriented x3, no acute distress, pleasant and cooperative Lungs: Respirations even and unlabored, symmetrical chest expansion Eyes: PERRL Musculoskeletal: Flexion and extension of lumbar [spine] somewhat guarded secondary to pain, [antalgic gait noted] Neurological: Speech clear, no gross sensory deficit Assessment:: Degenerative disc disease of cervical and lumbar spine with cervical and lumbar radiculopathy symptoms, chronic neck pain, cervical spondylosis, cervical facet arthropathy Plan:: Due to her recent fall back into the chair and causing additional soreness I will send in a order of prednisone 20 mg twice a day for 5 days. I will also refill her Percocet 5 mg 4 times a day and Flexeril 10 mg 3 times a day and provide a 1 month supply of this medication.? I have counseled the patient that we will not increase her Percocet medication however I will include an additional 5 tablets onto this month supply for times of breakthrough pain. I have also counseled the patient to contact our office if she does decide that she would like additional imaging of her low back if she continues to have worsening pain in this area. Patient will return to clinic in 1 month for reevaluation of symptoms, medication refill and follow-up. ? Patient has been advised of risks of oversedation with the prescribed medication.? Narcan has been offered to the patient in the event of oversedation.? Patient has been advised that a family member should also be educated regarding administration of Narcan.? ? Patient has been instructed to contact the clinic with any concerns before the next appointment.? Dr. Valderrama has reviewed this note and agrees with this plan of care.? This note was dictated using voice recognition software and make contain errors or omissions. [facility] Disclaimer: The information contained in this section may have been updated after the patient was seen, as this information can be updated by other users. Medical History (Updated 07/07/22 @ 11:07 by Alma Thao RN) Fibromyalgia GERD (gastroesophageal reflux disease) Gout High blood pressure Hypothyroidism Family History (Updated 07/07/22 @ 11:07 by Alma Thao RN) Other No significant family history Social History Smoking Status: Never smoker second hand exposure: N
[2022-12-03 15:59] VITALS: BP 121/67; PULSE 78; RESP 20; O2SAT 97; BMI 39.1
== END | disposition home or self-care (01) ==
PROVIDERS: PCP Family Medicine; Visit Provider Nurse Practitioner Family
DX: M51.16 Intervertebral disc disorders with radiculopathy, lumbar region (principal); M50.10 Cervical disc disorder with radiculopathy, unspecified cervical region; M47.22 Other spondylosis with radiculopathy, cervical region
CPT/HCPCS: 99212; G0463

== ENCOUNTER → 2022-12-03 14:56 | Outpatient (CLI) | payer MEDICARE, SELFPAY ==
[2022-12-03 17:09] LABS: Amphetamine/Metha Screen,Urine Negative ng/ml (<1000)
[2022-12-03 17:10] LABS: Barbiturates Screen,Urine Negative ng/ml (<200); Benzodiazepines Screen,Urine Negative ng/ml (<200)
[2022-12-03 17:11] LABS: Cannabinoid Screen,Urine Negative ng/ml (<50)
[2022-12-03 17:12] LABS: Cocaine Screen,Urine Negative ng/ml (<300); Methadone Screen,Urine Negative ng/ml (<300)
[2022-12-03 17:13] LABS: Opiate Screen,Urine Positive ng/ml (<300)
[2022-12-03 17:14] LABS: Phencyclidine Screen,Urine Negative ng/ml (<25)
[2022-12-10 07:09] LABS: Opiates Negative (Cutoff=100); Oxycodone (GC/MS) 2068 ng/mL (Cutoff=100); Oxymorphone (GC/MS) 888 ng/mL (Cutoff=100)
== END ==
PROVIDERS: PCP Family Medicine; Visit Provider Nurse Practitioner Family
DX: Z79.891 Long term (current) use of opiate analgesic (principal)
CPT/HCPCS: 80305; 80361; 80365; 99212; G0463; G0480

== ENCOUNTER → 2022-12-31 15:22 | Outpatient (POV) | payer MEDICARE, SELFPAY ==
--- NOTE | 2022-12-31 15:31 | A.OFFVIS_ITS ---
[facility] Pain Management SOAP Note Subjective:: Patient is a pleasant 66-year-old female who presents today for medication refill and follow-up.? We are currently treating the patient for degenerative disc disease of cervical and lumbar spine with cervical and lumbar radiculopathy symptoms, chronic neck pain, cervical spondylosis, cervical facet arthropathy.? Today she rates her pain a 5 out of 10.? Patient states she is doing much better today from our last visit. During that time she had had a slight fall back in a chair and was experiencing overall soreness. Today she states she is doing much better and denies any new trauma or injury. Patient denies any change location or type of pain she experiences. She is currently managed with Flexeril 10 mg 3 times a day Percocet 5 mg 4 times a day along with compounding cream.? P her Shabbir is [phone]. Its been reviewed and appropriate. Review of Systems: General: No recent weight changes, no fever, no sleep disturbances Respiratory: No cough, no shortness of air, no recurring pulmonary infections Cardiovascular/peripheral vascular: No chest pain, no palpitations,? no edema, no shortness of breath Gastrointestinal: No new onset incontinence, normal bowel movements reported Genitourinary: No new onset incontinence Musculoskeletal: Low back pain Psychiatric: [Normal mood/affect] Neurological: [Denies weakness in extremities], [denies balance issues] Objective:: Physical Exam: General: Alert and oriented x3, no acute distress, pleasant and cooperative Lungs: Respirations even and unlabored, symmetrical chest expansion Eyes: PERRL Musculoskeletal: Flexion and extension of lumbar [spine] somewhat guarded secondary to pain, [antalgic gait noted] Neurological: Speech clear, no gross sensory deficit Assessment:: Degenerative disc disease of cervical and lumbar spine with cervical and lumbar radiculopathy symptoms, chronic neck pain, cervical spondylosis, cervical facet arthropathy Plan:: I will refill the patient's Percocet 5 mg and provide 125 tablets. I will also will refill her Flexeril 10 mg 3 times a day and provide a 1 month supply of this medication. Patient will return to clinic in 1 month for reevaluation of symptoms and medication refill. Patient has been advised of risks of oversedation with the prescribed medication. Narcan has been offered to the patient in the event of oversedation. Patient has been advised that a family member should also be educated regarding administration of Narcan. Patient has been instructed to contact the clinic with any concerns before the next appointment. Dr. Valderrama has reviewed this note and agrees with this plan of care. This note was dictated using voice recognition software and make contain errors or omissions. [facility] Disclaimer: The information contained in this section may have been updated after the patient was seen, as this information can be updated by other users. Medical History (Updated 07/07/22 @ 11:07 by Alma Thao RN) Fibromyalgia GERD (gastroesophageal reflux disease) Gout High blood pressure Hypothyroidism Family History (Updated 07/07/22 @ 11:07 by Alma Thao RN) Other No significant family history Social History Smoking Status: Never smoker second hand exposure: No alcohol intake: never substance use type: denies use current occupational status: retired Travel in the last 8 weeks: None household members: spouse housing: house caffeine: Yes
[2022-12-31 15:44] VITALS: BP 108/66; PULSE 75; RESP 18; TEMP 36.9; O2SAT 97; BMI 39.1
== END | disposition home or self-care (01) ==
PROVIDERS: PCP Family Medicine; Visit Provider Nurse Practitioner Family
DX: M50.10 Cervical disc disorder with radiculopathy, unspecified cervical region (principal); M51.16 Intervertebral disc disorders with radiculopathy, lumbar region; M47.22 Other spondylosis with radiculopathy, cervical region; G89.29 Other chronic pain
CPT/HCPCS: 99212; G0463

== ENCOUNTER → 2023-01-29 11:19 | Outpatient (POV) | payer MEDICARE, SELFPAY ==
[2023-01-29 11:43] VITALS: BP 128/73; PULSE 83; RESP 18; O2SAT 98; BMI 38.9
--- NOTE | 2023-01-29 12:14 | A.OFFVIS_ITS ---
[facility] Pain Management SOAP Note Subjective:: This patient is a very pleasant 66-year-old female that comes our clinic today for medication refill and follow-up. Are currently treating the patient for degenerative disc disease cervical spine multilevels. Cervical radiculopathy. Multilevel degenerative disc disease lumbar spine and lumbar radiculopathy. Patient rates her pain today 5/10. We are currently managing the patient medically with Flexeril 10 mg 1 p.o. 3 times daily and Percocet 5 mg 1 p.o. 4 times daily. Patient's Shabbir #[id number] has been reviewed and appropriate. Patient reports pain medicine helps significantly in terms of her overall pain each day. She does not report any side effects or complications from the medication. Objective:: Patient is awake alert [place]ou x3. In no acute distress. Flexion-extension lumbar spine somewhat guarded secondary to pain. Deep tendon reflexes upper lower extremities normal. Motor strength upper and lower extremities normal. There is no gross sensory deficit. Gait is normal. Assessment:: Degenerative disc lumbar spine multilevels. Lumbar radiculopathy. Degenerative disc disease cervical spine multilevels. Cervical radiculopathy. Plan:: We will send in refills for Flexeril 10 mg 1 p.o. 3 times daily and Percocet 5 mg 1 p.o. 3 times daily. Patient will return in 1 month for medication refill and follow-up. [facility] Disclaimer: The information contained in this section may have been updated after the patient was seen, as this information can be updated by other users. Medical History (Updated 07/07/22 @ 11:07 by Alma Thao RN) Fibromyalgia GERD (gastroesophageal reflux disease) Gout High blood pressure Hypothyroidism Family History (Updated 07/07/22 @ 11:07 by Alma Thao RN) Other No significant family history Social History Smoking Status: Never smoker second hand exposure: No alcohol intake: never substance use type: denies use current occupational status: retired Travel in the last 8 weeks: None household members: spouse housing: house caffeine: Yes
== END | disposition home or self-care (01) ==
PROVIDERS: PCP Family Medicine; Visit Provider Nurse Practitioner Family
DX: M51.16 Intervertebral disc disorders with radiculopathy, lumbar region (principal); M50.10 Cervical disc disorder with radiculopathy, unspecified cervical region
CPT/HCPCS: 99212; G0463

== ENCOUNTER → 2023-03-01 10:59 | Outpatient (POV) | payer MEDICARE, SELFPAY ==
--- NOTE | 2023-03-01 11:22 | EXP.PAIN.SOA ---
[facility] Pain Management SOAP Note Subjective:: Patient is a pleasant 67-year-old female who presents today for medication refill and follow-up.? We are currently treating the patient for degenerative disc disease of cervical and lumbar spine with cervical and lumbar radiculopathy symptoms, chronic neck pain, cervical spondylosis, cervical facet arthropathy.? Today she rates her pain a 5 out of 10.? She denies any new trauma or injury or change to location or type of pain she experiences. She is currently managed with Flexeril 10 mg 3 times a day Percocet 5 mg 4 times a day along with compounding cream.? Her Shabbir is [id number]. Its been reviewed and appropriate. Review of Systems: General: No recent weight changes, no fever, no sleep disturbances Respiratory: No cough, no shortness of air, no recurring pulmonary infections Cardiovascular/peripheral vascular: No chest pain, no palpitations,? no edema, no shortness of breath Gastrointestinal: No new onset incontinence, normal bowel movements reported Genitourinary: No new onset incontinence Musculoskeletal: Low back pain, neck pain Psychiatric: [Normal mood/affect] Neurological: [Denies weakness in extremities], [denies balance issues] Objective:: Physical Exam: General: Alert and oriented x3, no acute distress, pleasant and cooperative Lungs: Respirations even and unlabored, symmetrical chest expansion Eyes: PERRL Musculoskeletal: Flexion and extension of lumbar [spine] somewhat guarded secondary to pain, [antalgic gait noted] Neurological: Speech clear, no gross sensory deficit Assessment:: Degenerative disc disease of cervical and lumbar spine with cervical and lumbar radiculopathy symptoms, chronic neck pain, cervical spondylosis, cervical facet arthropathy Plan:: I will refill the patient's Percocet 5 mg 4 times a day with 125 tablets and Flexeril 10 mg 3 times daily and provide a 1 month supply of these medications. I have counseled the patient that she may benefit from injections however we will discuss this at future visits. Patient will return to clinic in 1 month for reevaluation of symptoms and plan of care. Patient has been advised of risks of oversedation with the prescribed medication. Narcan has been offered to the patient in the event of oversedation. Patient has been advised that a family member should also be educated regarding administration of Narcan. Patient has been instructed to contact the clinic with any concerns before the next appointment. Dr. Valderrama has reviewed this note and agrees with this plan of care. This note was dictated using voice recognition software and make contain errors or omissions. [facility] Disclaimer: The information contained in this section may have been updated after the patient was seen, as this information can be updated by other users. Medical History (Updated 07/07/22 @ 11:07 by Alma Thao RN) Fibromyalgia GERD (gastroesophageal reflux disease) Gout High blood pressure Hypothyroidism Family History (Updated 07/07/22 @ 11:07 by Alma Thao RN) Other No significant family history Social History Smoking Status: Never smoker second hand exposure: No alcohol intake: never substance use type: denies use current occupational status: retired Travel in the last 8 weeks: None household members: spouse housing: house caffeine: Yes
[2023-03-01 12:18] VITALS: BP 117/78; PULSE 81; RESP 18; O2SAT 96; BMI 38.7
== END | disposition home or self-care (01) ==
PROVIDERS: Visit Provider Nurse Practitioner Family
DX: M50.10 Cervical disc disorder with radiculopathy, unspecified cervical region (principal); M51.16 Intervertebral disc disorders with radiculopathy, lumbar region; M47.22 Other spondylosis with radiculopathy, cervical region
CPT/HCPCS: 99212; G0463

== ENCOUNTER → 2023-04-01 13:07 | Outpatient (POV) | payer MEDICARE, SELFPAY ==
--- NOTE | 2023-04-01 13:30 | EXP.PAIN.SOA ---
[facility] Pain Management SOAP Note Subjective:: Patient is a pleasant 67-year-old female who presents today for medication refill. We are currently treating the patient for degenerative disc disease of cervical and lumbar spine with cervical and lumbar radiculopathy symptoms, chronic neck pain, cervical spondylosis, cervical facet arthropathy. Today she rates her pain a 6 out of 10. Patient denies any new trauma or injury. She is currently managed with Flexeril 10 mg 3 times a day and Percocet 5 mg 4 times a day along with compounding cream. She denies any side effects from these medications. Her Shabbir is [id number]. Its been reviewed and appropriate. Review of Systems: General: No recent weight changes, no fever, no sleep disturbances Respiratory: No cough, no shortness of air, no recurring pulmonary infections Cardiovascular/peripheral vascular: No chest pain, no palpitations, no edema, no shortness of breath Gastrointestinal: No new onset incontinence, normal bowel movements reported Genitourinary: No new onset incontinence Musculoskeletal: Low back pain Psychiatric: [Normal mood/affect] Neurological: [Denies weakness in extremities], [denies balance issues] Objective:: Physical Exam: General: Alert and oriented x3, no acute distress, pleasant and cooperative Lungs: Respirations even and unlabored, symmetrical chest expansion Eyes: PERRL Musculoskeletal: Flexion and extension of lumbar [spine] somewhat guarded secondary to pain, [antalgic gait noted] Neurological: Speech clear, no gross sensory deficit Assessment:: Degenerative disc disease of cervical and lumbar spine with cervical and lumbar radiculopathy symptoms, cervical spondylosis, cervical facet arthropathy Plan:: I will refill the patient's Flexeril 10 mg 3 times a day and Percocet 5 mg 4 times a day and provide a 1 month supply of this medication. Patient will return to clinic in 1 month for reevaluation of symptoms and medication refill. Patient has been advised of risks of oversedation with the prescribed medication. Narcan has been offered to the patient in the event of oversedation. Patient has been advised that a family member should also be educated regarding administration of Narcan. Patient has been instructed to contact the clinic with any concerns before the next appointment. Dr. Valderrama has reviewed this note and agrees with this plan of care. This note was dictated using voice recognition software and make contain errors or omissions. [facility] Disclaimer: The information contained in this section may have been updated after the patient was seen, as this information can be updated by other users. Medical History (Updated 07/07/22 @ 11:07 by Alma Thao RN) Fibromyalgia GERD (gastroesophageal reflux disease) Gout High blood pressure Hypothyroidism Family History (Updated 07/07/22 @ 11:07 by Alma Thao RN) Other No significant family history Social History Smoking Status: Never smoker second hand exposure: No alcohol intake: never substance use type: denies use current occupational status: retired Travel in the last 8 weeks: None household members: spouse housing: house caffeine: Yes
[2023-04-01 13:47] VITALS: BP 117/75; PULSE 73; RESP 20; O2SAT 98; BMI 38.2
== END | disposition home or self-care (01) ==
PROVIDERS: PCP Family Medicine; Visit Provider Nurse Practitioner Family
DX: M50.10 Cervical disc disorder with radiculopathy, unspecified cervical region (principal); M47.22 Other spondylosis with radiculopathy, cervical region; M51.16 Intervertebral disc disorders with radiculopathy, lumbar region
CPT/HCPCS: 99212; G0463

== ENCOUNTER → 2023-04-30 13:55 | Outpatient (POV) | payer MEDICARE, SELFPAY ==
[2023-04-30 14:15] VITALS: BP 105/81; PULSE 71; RESP 20; BMI 38.4
--- NOTE | 2023-04-30 14:18 | A.OFFVIS_ITS ---
[facility] Pain Management SOAP Note Subjective:: This patient is a very pleasant 67-year-old female that comes our clinic today for medication refills. We currently manage the patient with Percocet 5 mg 1 p.o. 4 times daily. Also, Flexeril 10 mg 1 p.o. 3 times daily. Patient's Shabbir #[id number] has been reviewed and appropriate. We manage the patient medically for degenerative disc cervical spine multilevels. Cervical radiculopathy. Cervical spondylosis. Multilevel cervical facet arthropathy. Today she rates her pain 6/10. Patient states medications decrease her pain by 50%. Patient does not report any side effects or complications with the medications. Patient describes her cervical neck pain as intermittent, dull, aching at times. Patient reports bilateral arm radicular symptoms at times. Objective:: Patient is awake alert [place] x3. In no acute distress. Flexion-extension lumbar spine normal. Flexion-extension cervical spine somewhat guarded secondary to pain. Deep tendon reflexes upper and lower extremities normal. Motor strength upper lower extremities normal. There is no gross sensory deficit. Gait is normal. Assessment:: Degenerative disc cervical spine multilevels. Cervical radiculopathy. Spondylosis. Multilevel cervical facet arthropathy. Plan:: We will refill the patient's medications. Flexeril 10 mg 1 p.o. 3 times daily. Percocet 5 mg 1 p.o. q.. Patient will return to see us in 1 month. [facility] Disclaimer: The information contained in this section may have been updated after the patient was seen, as this information can be updated by other users. Medical History (Updated 07/07/22 @ 11:07 by Alma Thao RN) Fibromyalgia GERD (gastroesophageal reflux disease) Gout High blood pressure Hypothyroidism Family History (Updated 07/07/22 @ 11:07 by Alma Thao RN) Other No significant family history Social History Smoking Status: Never smoker second hand exposure: No alcohol intake: never substance use type: denies use current occupational status: other Travel in the last 8 weeks: None household members: spouse housing: house caffeine: Yes
== END | disposition home or self-care (01) ==
PROVIDERS: PCP Family Medicine; Visit Provider Nurse Anesthetist, Certified Registered
DX: M50.10 Cervical disc disorder with radiculopathy, unspecified cervical region (principal); M47.22 Other spondylosis with radiculopathy, cervical region
CPT/HCPCS: 99212; G0463

== ENCOUNTER → 2023-04-30 14:31 | Outpatient (CLI) | payer MEDICARE, SELFPAY ==
[2023-04-30 15:57] LABS: Barbiturates Screen,Urine Negative ng/ml (<200)
[2023-04-30 15:58] LABS: Amphetamine/Metha Screen,Urine Negative ng/ml (<1000)
[2023-04-30 15:59] LABS: Cannabinoid Screen,Urine Negative ng/ml (<50)
[2023-04-30 16:00] LABS: Benzodiazepines Screen,Urine Negative ng/ml (<200); Methadone Screen,Urine Negative ng/ml (<300)
[2023-04-30 16:01] LABS: Cocaine Screen,Urine Negative ng/ml (<300); Phencyclidine Screen,Urine Negative ng/ml (<25)
[2023-04-30 16:02] LABS: Opiate Screen,Urine Negative ng/ml (<300)
[2023-05-07 16:38] LABS: Opiates Negative (Cutoff=100); Oxycodone (GC/MS) 548 ng/mL (Cutoff=100); Oxymorphone (GC/MS) 137 ng/mL (Cutoff=100)
== END ==
LOC: LAB 14:33
PROVIDERS: PCP Family Medicine; Visit Provider Nurse Practitioner Family
DX: Z79.891 Long term (current) use of opiate analgesic (principal)
CPT/HCPCS: 80305; 80361; 80365; 99212; G0463; G0480

== ENCOUNTER → 2023-05-27 13:51 | Outpatient (POV) | payer MEDICARE, SELFPAY ==
--- NOTE | 2023-05-27 15:00 | EXP.PAIN.SOA ---
[facility] Pain Management SOAP Note Subjective:: Patient is a pleasant 67-year-old female who presents today for 1 month follow-up and medication refill. We are currently treating the patient for degenerative disc disease of cervical spine with cervical radiculopathy symptoms, cervical facet arthropathy, cervical spondylosis. Today she rates her pain a 6 out of 10. Patient denies any new trauma or injury. She denies any change in location or type of pain she experiences. Patient is currently managed with Percocet 5 mg 4 times a day and Flexeril 10 mg 3 times a day. She denies any side effects from this medication. Patient is requesting refills. She does state that she leaves for [place] for a weeklong trip next week. Her Shabbir has been reviewed and is appropriate. Review of Systems: General: No recent weight changes, no fever, no sleep disturbances Respiratory: No cough, no shortness of air, no recurring pulmonary infections Cardiovascular/peripheral vascular: No chest pain, no palpitations, no edema, no shortness of breath Gastrointestinal: No new onset incontinence, normal bowel movements reported Genitourinary: No new onset incontinence Musculoskeletal: Neck pain Psychiatric: [Normal mood/affect] Neurological: [Denies weakness in extremities], [denies balance issues] Objective:: Physical Exam: General: Alert and oriented x3, no acute distress, pleasant and cooperative Lungs: Respirations even and unlabored, symmetrical chest expansion Eyes: PERRL Musculoskeletal: Flexion and extension of cervical [spine] somewhat guarded secondary to pain, [antalgic gait noted] Neurological: Speech clear, no gross sensory deficit Assessment:: Degenerative disc disease of cervical spine with cervical radiculopathy symptoms, cervical facet arthropathy, cervical spondylosis Plan:: Patient is doing well with her current medication regimen. I will refill the patient's Percocet 5 mg 4 times a day and Flexeril 10 mg 3 times a day and provide a 1 month supply of this medication. Patient will return to clinic in 1 month for reevaluation of symptoms and plan of care. Patient has been advised of risks of oversedation with the prescribed medication. Narcan has been offered to the patient in the event of oversedation. Patient has been advised that a family member should also be educated regarding administration of Narcan. Patient has been instructed to contact the clinic with any concerns before the next appointment. Dr. Valderrama has reviewed this note and agrees with this plan of care. This note was dictated using voice recognition software and make contain errors or omissions. [facility] Disclaimer: The information contained in this section may have been updated after the patient was seen, as this information can be updated by other users. Medical History (Updated 05/26/23 @ 14:47 by Flora Gibbons) Fibromyalgia GERD (gastroesophageal reflux disease) Gout High blood pressure Hypothyroidism Sleep apnea Surgical History (Updated 05/26/23 @ 14:47 by Flora Gibbons) H/O total hysterectomy History of carpal tunnel repair Hx of tonsillectomy Family History (Updated 05/26/23 @ 14:47 by Flora Gibbons) Other Cancer Diabetes Heart attack Hypertension No significant family history Stroke Social History Smoking Status: Never smoker second hand exposure: No alcohol intake: never substance use type: denies use current occupational status: other Travel in the last 8 weeks: None household members: spouse housing: house caffeine: Yes
[2023-05-27 15:07] VITALS: BP 142/81; PULSE 63; RESP 18; O2SAT 97; BMI 38.6
== END | disposition home or self-care (01) ==
PROVIDERS: PCP Family Medicine; Visit Provider Nurse Practitioner Family
DX: M50.10 Cervical disc disorder with radiculopathy, unspecified cervical region (principal); M47.22 Other spondylosis with radiculopathy, cervical region
CPT/HCPCS: 99212; G0463

== ENCOUNTER → 2023-06-16 09:22 | Outpatient (CLI) | payer MEDICARE, SELFPAY ==
--- NOTE | 2023-06-16 09:23 | XR_ITS ---
FINAL REPORT CLINICAL HISTORY: post menopausal COMPARISON: None FINDINGS: Using L1-4, the bone mineral density of the spine is 1.405 g/cm2, corresponding to T-score of 3.3, within normal limits. Using the left hip, the bone mineral density of the femoral neck is 0.934 g/cm2, corresponding to a T-score of -0.1, within normal limits. Using the right hip, the bone mineral density of the femoral neck is 0.934 g/cm2, corresponding to a T-score of -0.1, within normal limits. NOTE: T-score: Standard deviation compared with peak bone mass of young adult mean. *Following the recommendations of the International Society of Bone densitometry, classification of hip BMD is based on the lower of two T-scores; total hip or femoral neck. IMPRESSION: Normal bone mineral density of the lumbar spine and hips. Reviewed, Interpreted and Dictated by Ned Edward MD Transcribed by Melia Garcia Authenticated and [facility]
--- NOTE | 2023-06-16 09:23 | MM_ITS ---
PROCEDURE INFORMATION: Exam: MG Bilateral Screening 3D Mammography Exam date and time: 06/16/2023 9:10 AM Age: 67 years old Clinical indication: Screening examination TECHNIQUE: Imaging protocol: Bilateral Screening tomosynthesis and 2D mammography including computer-aided detection (CAD) when performed. COMPARISON: 1. MG MM DIG SCREENING MAMM BI W/CAD 07/18/2020 3:21 PM 2. MG MM MAMMO DIGITAL DIAGNOSTIC W CAD BILAT 04/06/2018 2:10 PM FINDINGS: MAMMOGRAPHY: Breast composition: There are scattered areas of fibroglandular density. Mass: None. Architectural distortion: None. Calcifications: No suspicious calcifications. Asymmetric density: None. Skin thickening: None. Axillary adenopathy: None. IMPRESSION: No mammographic evidence of malignancy. Annual screening is recommended unless otherwise clinically indicated. All ASSESSMENT: BI-RADS Category 1: Negative
== END ==
PROVIDERS: PCP Family Medicine; Visit Provider Nurse Practitioner Obstetrics & Gynecology
DX: Z12.31 Encounter for screening mammogram for malignant neoplasm of breast (principal); Z78.0 Asymptomatic menopausal state
CPT/HCPCS: 77063; 77067; 77080

== ENCOUNTER → 2023-06-23 11:09 | Outpatient (POV) | payer MEDICARE, SELFPAY ==
--- NOTE | 2023-06-23 11:24 | A.OFFVIS_ITS ---
[facility] Pain Management SOAP Note Subjective:: Patient is a pleasant 67-year-old female who presents today for medication refill. We are currently treating the patient for degenerative disc disease of cervical spine with cervical radiculopathy symptoms, cervical facet arthropathy, cervical spondylosis. Today she rates her pain a 6 out of 10. Patient denies any new trauma or injury. She does state since our last visit that she did have to get a pneumonia vaccine and that she did feel like she was almost coming down with something during that day however she is feeling better today. Patient is currently managed with Percocet 5 mg 4 times a day and Flexeril 10 mg 3 times a day. She denies any side effects from this medication. Her Shabbir has been reviewed and is appropriate. Review of Systems: General: No recent weight changes, no fever, no sleep disturbances Respiratory: No cough, no shortness of air, no recurring pulmonary infections Cardiovascular/peripheral vascular: No chest pain, no palpitations, no edema, no shortness of breath Gastrointestinal: No new onset incontinence, normal bowel movements reported Genitourinary: No new onset incontinence Musculoskeletal: Neck pain Psychiatric: [Normal mood/affect] Neurological: [Denies weakness in extremities], [denies balance issues] Objective:: Physical Exam: General: Alert and oriented x3, no acute distress, pleasant and cooperative Lungs: Respirations even and unlabored, symmetrical chest expansion Eyes: PERRL Musculoskeletal: Flexion and extension of cervical [spine] somewhat guarded secondary to pain, [antalgic gait noted] Neurological: Speech clear, no gross sensory deficit Assessment:: Degenerative disc disease of cervical spine with cervical radiculopathy symptoms, cervical spondylosis, cervical facet arthropathy Plan:: I will refill the patient's Percocet 5 mg 4 times a day and Flexeril 10 mg 3 times a day and provide 1 month supply of these medications. Patient will return to clinic in 1 month for reevaluation of symptoms and medication refill. Patient has been advised of risks of oversedation with the prescribed medication. Narcan has been offered to the patient in the event of oversedati on. Patient has been advised that a family member should also be educated regarding administration of Narcan. Patient has been instructed to contact the clinic with any concerns before the next appointment. Dr. Valderrama has reviewed this note and agrees with this plan of care. This note was dictated using voice recognition software and make contain errors or omissions. [facility] Disclaimer: The information contained in this section may have been updated after the patient was seen, as this information can be updated by other users. Medical History (Updated 05/26/23 @ 14:47 by Flora Gibbons) Fibromyalgia GERD (gastroesophageal reflux disease) Gout High blood pressure Hypothyroidism Sleep apnea Surgical History (Updated 05/26/23 @ 14:47 by Flora Gibbons) H/O total hysterectomy History of carpal tunnel repair Hx of tonsillectomy Family History (Updated 05/26/23 @ 14:47 by Flora Gibbons) Other Cancer Diabetes Heart attack Hypertension No significant family history Stroke Social History Smoking Status: Never smoker second hand exposure: No alcohol intake: never substance use type: denies use current occupational status: retired Travel in the last 8 weeks: None household members: spouse housing: house caf
[2023-06-23 11:37] VITALS: BP 121/60; PULSE 71; RESP 18; O2SAT 98; BMI 37.8
== END | disposition home or self-care (01) ==
PROVIDERS: PCP Family Medicine; Visit Provider Nurse Practitioner Family
DX: M50.10 Cervical disc disorder with radiculopathy, unspecified cervical region (principal); M47.22 Other spondylosis with radiculopathy, cervical region
CPT/HCPCS: 99212; G0463

== ENCOUNTER → 2023-07-21 13:12 | Outpatient (POV) | payer MEDICARE, SELFPAY ==
--- NOTE | 2023-07-21 13:35 | EXP.PAIN.SOA ---
[facility] Pain Management SOAP Note Subjective:: Patient is a pleasant 67-year-old female who presents today for 1 month follow-up and medication refill. We are currently treating the patient for degenerative disc disease of cervical spine with cervical radiculopathy symptoms, cervical facet arthropathy, cervical spondylosis. Today she rates her pain a 6 out of 10. She denies any new trauma or injury since her last visit. Patient is currently managed with Percocet 5 mg 4 times a day and Flexeril 10 mg 3 times a day. She denies any side effects from this medication. Her Shabbir has been reviewed and is appropriate. Review of Systems: General: No recent weight changes, no fever, no sleep disturbances Respiratory: No cough, no shortness of air, no recurring pulmonary infections Cardiovascular/peripheral vascular: No chest pain, no palpitations, no edema, no shortness of breath Gastrointestinal: No new onset incontinence, normal bowel movements reported Genitourinary: No new onset incontinence Musculoskeletal: Neck pain Psychiatric: [Normal mood/affect] Neurological: [Denies weakness in extremities], [denies balance issues] Objective:: Physical Exam: General: Alert and oriented x3, no acute distress, pleasant and cooperative Lungs: Respirations even and unlabored, symmetrical chest expansion Eyes: PERRL Musculoskeletal: Flexion and extension of cervical [spine] somewhat guarded secondary to pain, [antalgic gait noted] Neurological: Speech clear, no gross sensory deficit Assessment:: Degenerative disc disease of cervical spine with cervical radiculopathy symptoms, cervical facet arthropathy, cervical spondylosis Plan:: I will refill the patient's Percocet 5 mg 4 times a day and Flexeril 10 mg 3 times a day and provide a 1 month supply of this medication. Patient will return to clinic in 1 month for reevaluation of symptoms and medication refill. Patient has been advised of risks of oversedation with the prescribed medication. Narcan has been offered to the patient in the event of oversedation. Patient has been advised that a family member should also be educated regarding administration of Narcan. Patient has been instructed to contact the clinic with any concerns before the next appointment. Dr. Valderrama has reviewed this note and agrees with this plan of care. This note was dictated using voice recognition software and make contain errors or omissions. [facility] Disclaimer: The information contained in this section may have been updated after the patient was seen, as this information can be updated by other users. Medical History (Updated 05/26/23 @ 14:47 by Flora Gibbons) Fibromyalgia GERD (gastroesophageal reflux disease) Gout High blood pressure Hypothyroidism Sleep apnea Surgical History (Updated 05/26/23 @ 14:47 by Flora Gibbons) H/O total hysterectomy History of carpal tunnel repair Hx of tonsillectomy Family History (Updated 05/26/23 @ 14:47 by Flora Gibbons) Other Cancer Diabetes Heart attack Hypertension No significant family history Stroke Social History Smoking Status: Never smoker second hand exposure: No alcohol intake: never substance use type: denies use current occupational status: retired Travel in the last 8 weeks: None household members: spouse housing: house caffeine: Yes
[2023-07-21 13:49] VITALS: BP 123/75; PULSE 61; RESP 18; O2SAT 96; BMI 36.6
== END | disposition home or self-care (01) ==
PROVIDERS: PCP Family Medicine; Visit Provider Nurse Practitioner Family
DX: M50.10 Cervical disc disorder with radiculopathy, unspecified cervical region (principal); M47.22 Other spondylosis with radiculopathy, cervical region
CPT/HCPCS: 99212; G0463

== ENCOUNTER 2023-07-21 13:45 | Outpatient (CLI) | payer MEDICARE, SELFPAY ==
[2023-07-21 15:44] LABS: Amphetamine/Metha Screen,Urine Negative ng/ml (<1000); Cannabinoid Screen,Urine Negative ng/ml (<50); Cocaine Screen,Urine Negative ng/ml (<300); Opiate Screen,Urine Negative ng/ml (<300); Phencyclidine Screen,Urine Negative ng/ml (<25)
[2023-07-21 17:51] LABS: Barbiturates Screen,Urine Negative ng/ml (<200); Methadone Screen,Urine Negative ng/ml (<300)
[2023-07-21 17:54] LABS: Benzodiazepines Screen,Urine Negative ng/ml (<200)
[2023-07-27 06:04] LABS: Opiates Negative (Cutoff=100); Oxycodone (GC/MS) 1106 ng/mL (Cutoff=100); Oxymorphone (GC/MS) 443 ng/mL (Cutoff=100)
== END 2023-07-21 23:59 ==
LOC: LAB 13:47
PROVIDERS: PCP Family Medicine; Visit Provider Nurse Practitioner Family
DX: Z79.891 Long term (current) use of opiate analgesic (principal)
CPT/HCPCS: 80307; 80361; 80365; 99212; G0463; G0480

== ENCOUNTER → 2023-08-20 11:02 | Outpatient (POV) | payer MEDICARE, SELFPAY ==
[2023-08-20 11:33] VITALS: BP 138/80; PULSE 63; RESP 20; BMI 37.4
--- NOTE | 2023-08-20 11:37 | A.OFFVIS_ITS ---
[facility] Pain Management SOAP Note Subjective:: This patient is a very pleasant 67-year-old female that comes our clinic today for a 1 month follow-up and medication refill. We currently treat the patient for degenerative disc lumbar spine multilevels. Lumbar radiculopathy. Degenerative disc cervical spine multilevels. Cervical radiculopathy. Cervical facet arthropathy. Cervical spondylosis. Today she rates her pain 6/10. We current manage the patient with Percocet 5 mg 1 p.o. 4 times daily. Flexeril 10 mg 1 p.o. 3 times daily. Patient reports both medications decrease her pain significantly. Both medications seem to allow her to continue with active daily living with minimal pain. She does not report any side effects from the medications. Her Shabbir has been reviewed and appropriate. Objective:: Patient is awake alert [place] x 3. No acute distress. Flexion-extension lumbar spine somewhat guarded secondary to pain. Flexion extension of the cervical spine somewhat guarded secondary to pain. Deep tendon reflexes upper lower extremities normal. Motor strength upper lower extremities normal. There is no gross sensory deficit. Gait is normal. Assessment:: Degenerative disc cervical spine multilevels. Cervical radiculopathy. Cervical spondylosis. Multilevel cervical facet arthropathy. Degenerative disc lumbar spine multilevels. Lumbar radiculopathy. Plan:: Patient's medications will be refilled as noted above. She will return to see us in 1 month. [facility] Disclaimer: The information contained in this section may have been updated after the patient was seen, as this information can be updated by other users. Medical History (Updated 05/26/23 @ 14:47 by Flora Gibbons) Fibromyalgia GERD (gastroesophageal reflux disease) Gout High blood pressure Hypothyroidism Sleep apnea Surgical History (Updated 05/26/23 @ 14:47 by Flora Gibbons) H/O total hysterectomy History of carpal tunnel repair Hx of tonsillectomy Family History (Updated 05/26/23 @ 14:47 by Flora Gibbons) Other Cancer Diabetes Heart attack Hypertension No significant family history Stroke Social History Smoking Status: Never smoker second hand exposure: No alcohol intake: never substance use type: denies use current occupational status: other Travel in the last 8 weeks: None household members: spouse housing: house caffeine: Yes
== END | disposition home or self-care (01) ==
PROVIDERS: PCP Family Medicine; Visit Provider Nurse Anesthetist, Certified Registered
DX: M50.10 Cervical disc disorder with radiculopathy, unspecified cervical region (principal); M47.22 Other spondylosis with radiculopathy, cervical region; M51.16 Intervertebral disc disorders with radiculopathy, lumbar region
CPT/HCPCS: 99212; G0463

== ENCOUNTER 2023-09-27 14:38 | Outpatient (POV) | payer MEDICARE, SELFPAY ==
[2023-09-27 14:46] VITALS: BP 156/88; PULSE 80; RESP 18; O2SAT 99; BMI 38.6
--- NOTE | 2023-09-27 15:07 | A.OFFVIS_ITS ---
[facility] Pain Management SOAP Note Subjective:: Patient is a pleasant 67-year-old female who presents today for medication refill and follow-up. Today she rates her pain a 6 out of 10. Patient denies any new trauma or injury. She does state that her primary care provider is taking over her Flexeril prescription because she can do the mail in prescription which is cheaper. Patient does also state from our last visit that she did receive a bill for over $200 from lab work related to our office. Patient is unsure what this is specifically about. She states that she did go to billing and explained to them that she had never gotten them filled before patient does state that the billing department could not give more additional details but that they did disregard the pill for her. Patient states she is just concerned whether or not if it is related to the urinalysis of if she is going to get charged that every time. Patient is currently managed with Percocet 5 mg 4 times a day. She denies any side effects from this medication. Patient does also have questions regarding any providers that may do tummy tucks. She states that Pat gave her an number and name of a specialist however it was a $1500 consultation fee. Her Shabbir has been reviewed and is appropriate. Review of Systems: General: No recent weight changes, no fever, no sleep disturbances Respiratory: No cough, no shortness of air, no recurring pulmonary infections Cardiovascular/peripheral vascular: No chest pain, no palpitations, no edema, no shortness of breath Gastrointestinal: No new onset incontinence, normal bowel movements reported Genitourinary: No new onset incontinence Musculoskeletal: Neck pain Psychiatric: [Normal mood/affect] Neurological: [Denies weakness in extremities], [denies balance issues] Objective:: Physical Exam: General: Alert and oriented x3, no acute distress, pleasant and cooperative Lungs: Respirations even and unlabored, symmetrical chest expansion Eyes: PERRL Musculoskeletal: Flexion and extension of cervical [spine] somewhat guarded secondary to pain, [antalgic gait noted] Neurological: Speech clear, no gross sensory deficit Assessment:: Degenerative disc disease of cervical spine with cervical radiculopathy sym ptoms, cervical facet arthropathy, cervical spondylosis, degenerative disc disease of lumbar spine with lumbar radiculopathy symptoms Plan:: I have counseled the patient that I would recommend her calling the larger [facility] in [place] such as [facility] and reach out to plastics department to see if they do have any providers that do amilcar clay. I have also discussed with the patient to fully research any provider she may go to see. I did review over with the patient regarding the bill that was sent regarding lab work. I have counseled the patient that I do not know the reason of why she did get discharged this time compared to previous UAs. Patient was explained how we do send the UA out for confirmation and whether or not if the lab is now using a different group may explain the charge. I will reach out and see if we can find any updated details regarding discharge between now and her next visit. Patient's Percocet 5 mg 4 times a day will be sent in with a 1 month supply of this medication. Patient will return to clinic in 1 month for reevaluation of symptoms and plan of care. Risks and benefits of the medication have been explained in detail to the patient. The patient does understand the risk of dependence on the medication when given over a prolonged period. Patient has been advised of risks of oversedation with the prescribed medication. Narcan has been offered to the paitent in the event of oversedation. Patient has been advised that a family member should also be educated regarding administration of Narcan. The patient has been advised to consult with his/her primary care provider and pharmacist regarding drug-drug interaction of medications currently prescribed. Patient has been prescribed a controlled substance after being counseled on the medication, medication safety, and possible side effects. Opioid contract was reviewed and signed by the patient, and that they have agreed to all of the terms set forth by our compliance program. Patient has been instructed to contact the clinic with any concerns before the next appointment. Dr. Valderrama has reviewed this note and agrees with this plan of care. This note was dictated using voice recognition software and make contain errors or omissions. [facility] Disclaimer: The information contained in this section may have been updated after the patient was seen, as this information can be updated by other users. Medical History (Updated 05/26/23 @ 14:47 by Flora Gibbons) Sleep apnea Hypothyroidism Fibromyalgia High blood pressure Gout GERD (gastroesophageal reflux disease) Surgical History (Updated 05/26/23 @ 14:47 by Flora Gibbons) History of carpal tunnel repair Hx of tonsillectomy H/O total hysterectomy Family History (Updated 05/26/23 @ 14:47 by Flora Gibbons) Other Cancer Diabetes Heart attack Hypertension No significant family history Stroke Social History Smoking Status: Never smoker second hand exposure: No alcohol intake: never substance use type: denies use current occupational status: other Travel in the last 8 weeks: None household members: spouse housing: house caffeine: Yes
== END 2023-09-27 23:59 | disposition home or self-care (01) ==
PROVIDERS: PCP Family Medicine; Visit Provider Nurse Practitioner Family
DX: M50.10 Cervical disc disorder with radiculopathy, unspecified cervical region (principal); M47.22 Other spondylosis with radiculopathy, cervical region; M51.16 Intervertebral disc disorders with radiculopathy, lumbar region
CPT/HCPCS: 99212; G0463

== ENCOUNTER 2023-10-28 12:53 | Outpatient (POV) | payer MEDICARE, SELFPAY ==
[2023-10-28 13:03] VITALS: BP 149/101; PULSE 71; RESP 18; O2SAT 97; BMI 39.1
--- NOTE | 2023-10-28 13:59 | EXP.PAIN.SOA ---
[facility] Pain Management SOAP Note Subjective:: Patient is a pleasant 67-year-old female who presents today for medication refill and 1 month follow-up. Today she rates her pain at a 7 out of 10. Patient denies any new trauma or injury. She does state that she is experiencing more pain in her low back and legs. Patient is currently managed with Percocet 5 mg 4 times a day from our office and her primary care provider is doing her Flexeril. Patient denies any side effects from these medications. She is requesting a refill of her pain medication. Patient does state that she has questions regarding some billing that she got from [facility]. Her Shabbir has been reviewed and is appropriate. Review of Systems: General: No recent weight changes, no fever, no sleep disturbances Respiratory: No cough, no shortness of air, no recurring pulmonary infections Cardiovascular/peripheral vascular: No chest pain, no palpitations, no edema, no shortness of breath Gastrointestinal: No new onset incontinence, normal bowel movements reported Genitourinary: No new onset incontinence Musculoskeletal: Low back pain, bilateral leg pain Psychiatric: [Normal mood/affect] Neurological: [Denies weakness in extremities], [denies balance issues] Objective:: Physical Exam: General: Alert and oriented x3, no acute distress, pleasant and cooperative Lungs: Respirations even and unlabored, symmetrical chest expansion Eyes: PERRL Musculoskeletal: Flexion and extension of lumbar [spine] somewhat guarded secondary to pain, [antalgic gait noted] Neurological: Speech clear, no gross sensory deficit Assessment:: Degenerative disc disease of cervical and lumbar spine with cervical and lumbar radiculopathy symptoms, cervical facet arthropathy and spondylosis Plan:: I have discussed with the patient due to her continued pain in her low back and legs that she may benefit from a lumbar epidural steroid injection in the future. She will follow-up with this at future visits. I will refill the patient's Percocet 5 mg 4 times a day and provide a 1 month supply of this medication. I have given the patient the managers name and number for the [facility] location with her telephone number to get a hold off regarding the billing issue. We will follow-up with this at future visits. Patient will return to clinic in 1 month for reevaluation of symptoms and plan of care. Risks and benefits of the medication have been explained in detail to the patient. The patient does understand the risk of dependence on the medication when given over a prolonged period. Patient has been advised of risks of oversedation with the prescribed medication. Narcan has been offered to the paitent in the event of oversedation. Patient has been advised that a family member should also be educated regarding administration of Narcan. The patient has been advised to consult with his/her primary care provider and pharmacist regarding drug-drug interaction of medications currently prescribed. Patient has been prescribed a controlled substance after being counseled on the medication, medication safety, and possible side effects. Opioid contract was reviewed and signed by the patient, and that they have agreed to all of the terms set forth by our compliance program. Patient has been instructed to contact the clinic with any concerns before the next appointment. Dr. Valderrama has reviewed this note and agrees with this plan of care. This note was dictated using voice recognition software and make contain errors or omissions. [facility] Disclaimer: The information contained in this section may have been updated after the patient was seen, as this information can be updated by other users. Medical History Sleep apnea Hypothyroidism Fibromyalgia High blood pressure Gout GERD (gastroesophageal reflux disease) Surgical History History of carpal tunnel repair Hx of tonsillectomy H/O total hysterectomy Family History Other Cancer Diabetes Heart attack Hypertension No significant family history Stroke Social History Smoking Status: Never smoker second hand exposure: No alcohol intake: never substance use type: denies use current occupational status: other Travel in the last 8 weeks: None household members: spouse housing: house caffeine: Yes
== END 2023-10-28 23:59 | disposition home or self-care (01) ==
PROVIDERS: PCP Family Medicine; Visit Provider Nurse Practitioner Family
DX: M50.10 Cervical disc disorder with radiculopathy, unspecified cervical region (principal); M51.16 Intervertebral disc disorders with radiculopathy, lumbar region; M47.22 Other spondylosis with radiculopathy, cervical region
CPT/HCPCS: 99212; G0463

== ENCOUNTER 2023-11-25 13:06 | Outpatient (POV) | payer MEDICARE, SELFPAY ==
[2023-11-25 13:42] VITALS: BP 138/82; PULSE 71; RESP 18; O2SAT 98; BMI 38.6
--- NOTE | 2023-11-25 13:51 | A.OFFVIS_ITS ---
[facility] Pain Management SOAP Note Subjective:: Patient is a pleasant 67-year-old female who presents today for medication refill and follow-up. Today she rates her pain a 6 out of 10. Patient denies any new trauma or injury. She does states she still is doing well with her current medication of Percocet 5 mg 4 times a day from our office and Flexeril from her PCP. She denies any side effects from these medications. Her Shabbir has been reviewed and is appropriate. Patient does state that she has questions regarding her urine test for today. Patient states that her last urine drug screen she was charged $200 and she just wants to make sure that this is not something that we will be charged every time. Patient states that they did end up removing that charge once she had called. She states that they mention that she has not signed the paper. Patient states she is unsure what the paperwork is and is asking whether or not if we have any idea what that would have been. Review of Systems: General: No recent weight changes, no fever, no sleep disturbances Respiratory: No cough, no shortness of air, no recurring pulmonary infections Cardiovascular/peripheral vascular: No chest pain, no palpitations, no edema, no shortness of breath Gastrointestinal: No new onset incontinence, normal bowel movements reported Genitourinary: No new onset incontinence Musculoskeletal: Low back pain Psychiatric: [Normal mood/affect] Neurological: [Denies weakness in extremities], [denies balance issues] Objective:: Physical Exam: General: Alert and oriented x3, no acute distress, pleasant and cooperative Lungs: Respirations even and unlabored, symmetrical chest expansion Eyes: PERRL Musculoskeletal: Flexion and extension of lumbar [spine] somewhat guarded secondary to pain, [antalgic gait noted] Neurological: Speech clear, no gross sensory deficit Assessment:: Degenerative disc disease of cervical and lumbar spine with cervical and lumbar radiculopathy symptoms, cervical facet arthropathy and spondylosis Plan:: I will refill the patient's Percocet and provide a 1 month supply of this medication. Patient will return to clinic in 1 month for reevaluation of symptoms and plan of care. I have discussed with the patient that I am unsure what paperwork they had mentioned that she had to have signed. I have counseled the patient that she can always reach out to the billing department to see if they can get clarification on the cost as well as where she needs to send any payments to. I have also given the patient the [facility] telephone number to be of additional assistance. Risks and benefits of the medication have been explained in detail to the patient. The patient does understand the risk of dependence on the medication when given over a prolonged period. Patient has been advised of risks of oversedation with the prescribed medication. Narcan has been offered to the paitent in the event of oversedation. Patient has been advised that a family member should also be educated regarding administration of Narcan. The patient has been advised to consult with his/her primary care provider and pharmacist regarding drug-drug interaction of medications currently prescribed. Patient has been prescribed a controlled substance after being counseled on the medication, medication safety, and possible side effects. Opioid contract was reviewed and signed by the patient, and that they have agreed to all of the terms set forth by our compliance program. Patient has been instructed to contact the clinic with any concerns before the next appointment. Dr. Valderrama has reviewed this note and agrees with this plan of care. This note was dictated using voice recognition software and make contain errors or omissions. [facility] Disclaimer: The information contained in this section may have been updated after the patient was seen, as this information can be updated by other users. Medical History Sleep apnea Hypothyroidism Fibromyalgia High blood pressure Gout GERD (gastroesophageal reflux disease) Surgical History History of carpal tunnel repair Hx of tonsillectomy H/O total hysterectomy Family History Other Cancer Diabetes Heart attack Hypertension No significant family history Stroke Social History Smoking Status: Never smoker second hand exposure: No alcohol intake: never substance use type: denies use current occupational status: other Travel in the last 8 weeks: None household members: spouse housing: house caffeine: Yes
[2023-11-25 15:40] LABS: Benzodiazepines Screen,Urine Negative ng/ml (<200)
[2023-11-25 15:41] LABS: Amphetamine/Metha Screen,Urine Negative ng/ml (<1000); Barbiturates Screen,Urine Negative ng/ml (<200)
[2023-11-25 15:42] LABS: Cannabinoid Screen,Urine Negative ng/ml (<50); Cocaine Screen,Urine Negative ng/ml (<300)
[2023-11-25 15:43] LABS: Methadone Screen,Urine Negative ng/ml (<300)
[2023-11-25 15:44] LABS: Opiate Screen,Urine Negative ng/ml (<300); Phencyclidine Screen,Urine Negative ng/ml (<25)
[2023-12-01 18:09] LABS: Opiates Negative (Cutoff=100); Oxycodone (GC/MS) 530 ng/mL (Cutoff=100); Oxymorphone (GC/MS) 106 ng/mL (Cutoff=100)
== END 2023-11-25 23:59 | disposition home or self-care (01) ==
PROVIDERS: PCP Family Medicine; Visit Provider Nurse Practitioner Family
DX: Z79.891 Long term (current) use of opiate analgesic (principal); M50.10 Cervical disc disorder with radiculopathy, unspecified cervical region; M51.16 Intervertebral disc disorders with radiculopathy, lumbar region; M47.22 Other spondylosis with radiculopathy, cervical region
CPT/HCPCS: 80307; 80361; 80365; 99212; G0463; G0480

== ENCOUNTER 2023-12-23 13:00 | Outpatient (POV) | payer MEDICARE, SELFPAY ==
[2023-12-23 14:11] VITALS: BP 151/78; BP 151/83; PULSE 59; RESP 16; O2SAT 100; BMI 38.1
--- NOTE | 2023-12-23 14:23 | EXP.PAIN.SOA ---
[facility] Pain Management SOAP Note Subjective:: Patient is a pleasant 68-year-old female who presents today for medication refill and follow-up. Today she rates her pain a 7 out of 10. Patient does state that she has been having a little bit more back and leg issues and does believe that the rain is playing a part in night. Patient denies any new trauma or injuries. Patient is currently managed with Percocet 5 mg 4 times a day and cyclobenzaprine 10 mg 3 times daily. She denies any side effects from this medication. She does state that the Flexeril is sent through her home refill from her PCP. Her Shabbir has been reviewed and is appropriate. Review of Systems: General: No recent weight changes, no fever, no sleep disturbances Respiratory: No cough, no shortness of air, no recurring pulmonary infections Cardiovascular/peripheral vascular: No chest pain, no palpitations, no edema, no shortness of breath Gastrointestinal: No new onset incontinence, normal bowel movements reported Genitourinary: No new onset incontinence Musculoskeletal: Low back pain, bilateral leg pain Psychiatric: [Normal mood/affect] Neurological: [Denies weakness in extremities], [denies balance issues] Objective:: Physical Exam: General: Alert and oriented x3, no acute distress, pleasant and cooperative Lungs: Respirations even and unlabored, symmetrical chest expansion Eyes: PERRL Musculoskeletal: Flexion and extension of lumbar [spine] somewhat guarded secondary to pain, [antalgic gait noted] Neurological: Speech clear, no gross sensory deficit Assessment:: Degenerative disc disease of cervical and lumbar spine with cervical and lumbar radiculopathy symptoms, cervical facet arthropathy and spondylosis Plan:: I will refill the patient's Percocet and provide a 1 month supply of this medication. Patient does state that her current pharmacy did raise the cost of the Percocet medication by $10 and that she would like to check into [facility] to see if it is cheaper. I have counseled the patient that we will wait to hear from her before we officially send in the prescription. Patient agrees with this plan of care. Patient will return to clinic in 1 month for reevaluation of symptoms and plan of care. Risks and benefits of the medication have been explained in detail to the patient. The patient does understand the risk of dependence on the medication when given over a prolonged period. Patient has been advised of risks of oversedation with the prescribed medication. Narcan has been offered to the paitent in the event of oversedation. Patient has been advised that a family member should also be educated regarding administration of Narcan. The patient has been advised to consult with his/her primary care provider and pharmacist regarding drug-drug interaction of medications currently prescribed. Patient has been prescribed a controlled substance after being counseled on the medication, medication safety, and possible side effects. Opioid contract was reviewed and signed by the patient, and that they have agreed to all of the terms set forth by our compliance program. Patient has been instructed to contact the clinic with any concerns before the next appointment. Dr. Valderrama has reviewed this note and agrees with this plan of care. This note was dictated using voice recognition software and make contain errors or omissions. [facility] Disclaimer: The information contained in this section may have been updated after the patient was seen, as this information can be updated by other users. Medical History Sleep apnea Hypothyroidism Fibromyalgia High blood pressure Gout GERD (gastroesophageal reflux disease) Surgical History History of carpal tunnel repair Hx of tonsillectomy H/O total hysterectomy Family History Other Cancer Diabetes Heart attack Hypertension No significant family history Stroke Social History Smoking Status: Never smoker second hand exposure: No alcohol intake: never substance use type: denies use current occupational status: retired Travel in the last 8 weeks: None household members: spouse housing: house caffeine: Yes
== END 2023-12-23 23:59 | disposition home or self-care (01) ==
PROVIDERS: Visit Provider Nurse Practitioner Family
DX: M50.10 Cervical disc disorder with radiculopathy, unspecified cervical region (principal); M51.16 Intervertebral disc disorders with radiculopathy, lumbar region; M47.22 Other spondylosis with radiculopathy, cervical region
CPT/HCPCS: 99212; G0463

== ENCOUNTER 2024-01-24 14:49 | Outpatient (POV) | payer MEDICARE, SELFPAY ==
[2024-01-24 15:00] VITALS: BP 138/78; PULSE 75; RESP 18; O2SAT 98; BMI 38.6
--- NOTE | 2024-01-24 15:27 | EXP.PAIN.SOA ---
[facility] Disclaimer: The information contained in this section may have been updated after the patient was seen, as this information can be updated by other users. Medical History (Updated 01/24/24 @ 15:29 by Sarah Aguilar APRN) Sleep apnea Hypothyroidism Fibromyalgia High blood pressure Gout GERD (gastroesophageal reflux disease) Surgical History History of carpal tunnel repair Hx of tonsillectomy H/O total hysterectomy Family History Other Cancer Diabetes Heart attack Hypertension No significant family history Stroke Social History Smoking Status: Never smoker second hand exposure: No alcohol intake: never substance use type: denies use current occupational status: retired Travel in the last 8 weeks: None household members: spouse housing: house caffeine: Yes PM Subjective & Objective Subjective Subjective:: Patient is a pleasant 68-year-old female who presents today for medication refill and follow-up. Today she rates her pain an 8 out of 10. She denies any new trauma or injury. Patient is currently managed with Percocet 5 mg 4 times a day. She denies any side effects from this medication. She is also managed with Flexeril from her PCP. Her Shabbir has been reviewed and is appropriate. Review of Systems: General: No recent weight changes, no fever, no sleep disturbances Respiratory: No cough, no shortness of air, no recurring pulmonary infections Cardiovascular/peripheral vascular: No chest pain, no palpitations, no edema, no shortness of breath Gastrointestinal: No new onset incontinence, normal bowel movements reported Genitourinary: No new onset incontinence Musculoskeletal: Low back pain Psychiatric: [Normal mood/affect] Neurological: [Denies weakness in extremities], [denies balance issues] Pain at rest (0-10 scale): 8 Objective Objective:: Physical Exam: General: Alert and oriented x3, no acute distress, pleasant and cooperative Lungs: Respirations even and unlabored, symmetrical chest expansion Eyes: PERRL Musculoskeletal: Flexion and extension of lumbar [spine] somewhat guarded secondary to pain, [antalgic gait noted] Neurological: Speech clear, no gross sensory deficit Has patient had previous pain injection?: No Conservative treatment options previously tried: Prescription medications Length of treatment: Longer than 6 weeks Meds Home Medications and Allergies Home Medications Medication Instructions Recorded Confirmed Type allopurinol 100 mg tablet 100 mg PO BID gout 90 days ##180 10/05/17 12/23/23 History levothyroxine 75 mcg tablet 1 tab PO DAILY thyroid 90 days ##90 10/05/17 12/23/23 History promethazine 25 mg tablet 25 mg PO NEEDED PRN Nausea 45 10/05/17 12/23/23 History days ##180 propranolol 20 mg tablet 20 mg PO DAILY bp 90 days ##180 10/05/17 12/23/23 History aspirin 81 mg tablet,delayed 81 mg PO DAILY unknown 12/12/19 12/23/23 History release biotin 5,000 mcg disintegrating 5,000 mcg PO DAILY Supplement 12/12/19 12/23/23 History tablet fluticasone propionate 50 2 spray intranasal DAILY allergies 06/06/20 12/23/23 Rx mcg/actuation nasal 30 days #16 mL spray,suspension lisinopril 10 mg tablet 10 mg PO DAILY BLOOD PRESSURE 05/26/23 12/23/23 History semaglutide 14 mg tablet (Rybelsus) 14 mg PO DAILY 05/26/23 12/23/23 History cyclobenzaprine 10 mg tablet 10 mg PO TID muscle pain #90 tabs 08/20/23 12/23/23 Rx oxycodone-acetaminophen 5 mg-325 1 tab PO QID PRN Pain #120 tabs 12/23/23 Rx mg tablet New Prescriptions to Start Prescriptions: Allergies Allergy/AdvReac Type Severity Reaction Status Date / Time acetaminophen Allergy Unknown NA-NAUSEA/V Verified 10/28/23 13:03 [From TYLENOL-CODEINE #3] OMITING codeine Allergy Unknown NA-NAUSEA/V Verified 10/28/23 13:03 [From TYLENOL-CODEINE #3] OMITING erythromycin base Allergy Unknown NA-NAUSEA/V Verified 10/28/23 13:03 [ERYTHROMYCIN BASE] OMITING methadone [METHADONE] Allergy Unknown UNKNOWN Verified 10/28/23 13:03 morphine [MORPHINE] Allergy Unknown UNKNOWN Verified 10/28/23 13:03 Penicillins [PENICILLINS] Allergy Unknown NA-NAUSEA/V Verified 10/28/23 13:03 OMITING Sulfa (Sulfonamide Allergy Unknown NA-NAUSEA/V Verified 10/28/23 13:03 Antibiotics) OMITING [SULFA (SULFONAMIDE ANTIBIOTICS)] Assessment and Plan *Assessment and plan (1) Degenerative disc disease, cervical: Status: Acute Category: Medical Code(s): M50.30 - Other cervical disc degeneration, unspecified cervical region (2) Degenerative disc disease, lumbar: Status: Acute Category: Medical Code(s): M51.36 - Other intervertebral disc degeneration, lumbar region (3) Cervical radiculopathy: Status: Acute Category: Medical Code(s): M54.12 - Radiculopathy, cervical region (4) Lumbar radiculopathy: Status: Acute Category: Medical Code(s): M54.16 - Radiculopathy, lumbar region Plan We will refill the patient's Percocet and provide a 1 month supply of this medication. Patient will return to clinic in 1 month for reevaluation of symptoms and plan of care. Risks and benefits of the medication have been explained in detail to the patient. The patient does understand the risk of dependence on the medication when given over a prolonged period. Patient has been advised of risks of oversedation with the prescribed medication. Narcan has been offered to the paitent in the event of oversedation. Patient has been advised that a family member should also be educated regarding administration of Narcan. The patient has been advised to consult with his/her primary care provider and pharmacist regarding drug-drug interaction of medications currently prescribed. Patient has been prescribed a controlled substance after being counseled on the medication, medication safety, and possible side effects. Opioid contract was reviewed and signed by the patient, and that they have agreed to all of the terms set forth by our compliance program. Patient has been instructed to contact the clinic with any concerns before the next appointment. Dr. Valderrama has reviewed this note and agrees with this plan of care. This note was dictated using voice recognition software and make contain errors or omissions.
== END 2024-01-24 23:59 | disposition home or self-care (01) ==
PROVIDERS: PCP Family Medicine; Visit Provider Nurse Practitioner Family
DX: M50.10 Cervical disc disorder with radiculopathy, unspecified cervical region (principal)
CPT/HCPCS: 99212; G0463

== ENCOUNTER 2024-02-21 14:14 | Outpatient (POV) | payer MEDICARE, SELFPAY ==
[2024-02-21 14:30] VITALS: BP 182/78; PULSE 62; RESP 16; O2SAT 97; BMI 38.6
--- NOTE | 2024-02-21 14:33 | A.OFFVIS_ITS ---
[facility] Disclaimer: The information contained in this section may have been updated after the patient was seen, as this information can be updated by other users. Medical History (Updated 01/24/24 @ 15:29 by Sarah Aguilar APRN) Sleep apnea Hypothyroidism Fibromyalgia High blood pressure Gout GERD (gastroesophageal reflux disease) Surgical History History of carpal tunnel repair Hx of tonsillectomy H/O total hysterectomy Family History Other Cancer Diabetes Heart attack Hypertension No significant family history Stroke Social History Smoking Status: Never smoker second hand exposure: No alcohol intake: never substance use type: denies use current occupational status: retired Travel in the last 8 weeks: None household members: spouse housing: house caffeine: Yes PM Subjective & Objective Subjective Subjective:: Patient is a pleasant 68-year-old female who presents today for medication refill and follow-up. Today is her pain pain 7 out of 10. Patient denies any new trauma or injury. She does state that she has had a little bit more pain with the rainy weather. Patient is currently managed with Percocet 5 mg 4 times a day. She denies any side effects from this medication. Her x-rays been reviewed and is appropriate. Review of Systems: General: No recent weight changes, no fever, no sleep disturbances Respiratory: No cough, no shortness of air, no recurring pulmonary infections Cardiovascular/peripheral vascular: No chest pain, no palpitations, no edema, no shortness of breath Gastrointestinal: No new onset incontinence, normal bowel movements reported Genitourinary: No new onset incontinence Musculoskeletal: Low back pain Psychiatric: [Normal mood/affect] Neurological: [Denies weakness in extremities], [denies balance issues] Pain at rest (0-10 scale): 7 Objective Objective:: Physical Exam: General: Alert and oriented x3, no acute distress, pleasant and cooperative Lungs: Respirations even and unlabored, symmetrical chest expansion Eyes: PERRL Musculoskeletal: Flexion and extension of lumbar [spine] somewhat guarded secondary to pain, [antalgic gait noted] Neurological: Speech clear, no gross sensory deficit Has patient had previous pain injection?: No Conservative treatment options previously tried: Prescription medications Length of treatment: Longer than 6 weeks Meds Home Medications and Allergies Home Medications ?Medication ?Instructions ?Recorded ?Confirmed ?Type allopurinol 100 mg tablet 100 mg PO BID gout 90 days ##180 10/05/17 01/25/24 History levothyroxine 75 mcg tablet 1 tab PO DAILY thyroid 90 days ##90 10/05/17 01/25/24 History promethazine 25 mg tablet 25 mg PO NEEDED PRN Nausea 45 10/05/17 01/25/24 History days ##180 propranolol 20 mg tablet 20 mg PO DAILY bp 90 days ##180 10/05/17 01/25/24 History aspirin 81 mg tablet,delayed 81 mg PO DAILY unknown 12/12/19 01/25/24 History release biotin 5,000 mcg disintegrating 5,000 mcg PO DAILY Supplement 12/12/19 01/25/24 History tablet fluticasone propionate 50 2 spray intranasal DAILY allergies 06/06/20 01/25/24 Rx mcg/actuation nasal 30 days #16 mL spray,suspension lisinopril 10 mg tablet 10 mg PO DAILY BLOOD PRESSURE 05/26/23 01/25/24 History semaglutide 14 mg tablet (Rybelsus) 14 mg PO DAILY 05/26/23 01/25/24 History cyclobenzaprine 10 mg tablet 10 mg PO TID muscle pain #90 tabs 08/20/23 01/25/24 Rx oxycodone-acetaminophen 5 mg-325 1 tab PO QID PRN Pain #120 tabs 01/24/24 Rx mg tablet New Prescriptions to Start Prescriptions: Allergies Allergy/AdvReac Type Severity Reaction Status Date / Time acetaminophen Allergy Unknown NA-NAUSEA/V Verified 10/28/23 13:03 [From TYLENOL-CODEINE #3] OMITING codeine Allergy Unknown NA-NAUSEA/V Verified 10/28/23 13:03 [From TYLENOL-CODEINE #3] OMITING erythromycin base Allergy Unknown NA-NAUSEA/V Verified 10/28/23 13:03 [ERYTHROMYCIN BASE] OMITING methadone [METHADONE] Allergy Unknown UNKNOWN Verified 10/28/23 13:03 morphine [MORPHINE] Allergy Unknown UNKNOWN Verified 10/28/23 13:03 Penicillins [PENICILLINS] Allergy Unknown NA-NAUSEA/V Verified 10/28/23 13:03 OMITING Sulfa (Sulfonamide Allergy Unknown NA-NAUSEA/V Verified 10/28/23 13:03 Antibiotics) OMITING [SULFA (SULFONAMIDE ANTIBIOTICS)] Assessment and Plan *Assessment and plan (1) Lumbar radiculopathy: Status: Acute Category: Medical Code(s): M54.16 - Radiculopathy, lumbar region (2) Cervical radiculopathy: Status: Acute Category: Medical Code(s): M54.12 - Radiculopathy, cervical region (3) Degenerative disc disease, lumbar: Status: Acute Category: Medical Code(s): M51.36 - Other intervertebral disc degeneration, lumbar region (4) Degenerative disc disease, cervical: Status: Acute Category: Medical Code(s): M50.30 - Other cervical disc degeneration, unspecified cervical region Plan I will refill the patient's Percocet and provide a 1 month supply of this medication. Patient will return to clinic in 1 month for reevaluation of symptoms and plan of care. Risks and benefits of the medication have been explained in detail to the patient. The patient does understand the risk of dependence on the medication when given over a prolonged period. Patient has been advised of risks of oversedation with the prescribed medication. Narcan has been offered to the paitent in the event of oversedation. Patient has been advised that a family member should also be educated regarding administration of Narcan. The patient has been advised to consult with his/her primary care provider and pharmacist regarding drug-drug interaction of medications currently prescribed. Patient has been prescribed a controlled substance after being counseled on the medication, medication safety, and possible side effects. Opioid contract was reviewed and signed by the patient, and that they have agreed to all of the terms set forth by our compliance program. Patient has been instructed to contact the clinic with any concerns before the next appointment. Dr. Valderrama has reviewed this note and agrees with this plan of care. This note was dictated using voice recognition software and make contain errors or omissions.
== END 2024-02-21 23:59 | disposition home or self-care (01) ==
PROVIDERS: Visit Provider Nurse Practitioner Family
DX: M51.15 Intervertebral disc disorders with radiculopathy, thoracolumbar region (principal); M50.10 Cervical disc disorder with radiculopathy, unspecified cervical region; Z79.899 Other long term (current) drug therapy
CPT/HCPCS: 99212; G0463

== ENCOUNTER 2024-03-27 12:55 | Outpatient (POV) | payer MEDICARE, SELFPAY ==
--- NOTE | 2024-03-27 13:42 | EXP.PAIN.SOA ---
[facility] Disclaimer: The information contained in this section may have been updated after the patient was seen, as this information can be updated by other users. Medical History (Updated 01/24/24 @ 15:29 by Sarah Aguilar APRN) Sleep apnea Hypothyroidism Fibromyalgia High blood pressure Gout GERD (gastroesophageal reflux disease) Surgical History History of carpal tunnel repair Hx of tonsillectomy H/O total hysterectomy Family History Other Cancer Diabetes Heart attack Hypertension No significant family history Stroke Social History Smoking Status: Never smoker second hand exposure: No alcohol intake: never substance use type: denies use current occupational status: retired Travel in the last 8 weeks: None household members: spouse housing: house caffeine: Yes PM Subjective & Objective Subjective Subjective:: Patient is a pleasant 68-year-old female who presents today for medication refill and follow-up. Today she rates her pain a 7 out of 10. She denies any new trauma or injury. She does state that she continues to have chronic pain throughout multiple joints including her low back and legs. Patient is currently managed with Percocet 5 mg 4 times a day. She denies any side effects from this medication. She is requesting if we could possibly go up on this medication due to the worsening pain. Patient did go see a specialist who stated there was not much that could be done. Her Shabbir has been reviewed and is appropriate. Review of Systems: General: No recent weight changes, no fever, no sleep disturbances Respiratory: No cough, no shortness of air, no recurring pulmonary infections Cardiovascular/peripheral vascular: No chest pain, no palpitations, no edema, no shortness of breath Gastrointestinal: No new onset incontinence, normal bowel movements reported Genitourinary: No new onset incontinence Musculoskeletal: Low back pain Psychiatric: [Normal mood/affect] Neurological: [Denies weakness in extremities], [denies balance issues] Pain at rest (0-10 scale): 7 Objective Objective:: Physical Exam: General: Alert and oriented x3, no acute distress, pleasant and cooperative Lungs: Respirations even and unlabored, symmetrical chest expansion Eyes: PERRL Musculoskeletal: Flexion and extension of lumbar [spine] somewhat guarded secondary to pain, [antalgic gait noted] Neurological: Speech clear, no gross sensory deficit Has patient had previous pain injection?: No Conservative treatment options previously tried: Prescription medications Length of treatment: Longer than 12 weeks Meds Home Medications and Allergies Home Medications ?Medication ?Instructions ?Recorded ?Confirmed ?Type allopurinol 100 mg tablet 100 mg PO BID gout 90 days ##180 10/05/17 02/21/24 History levothyroxine 75 mcg tablet 1 tab PO DAILY thyroid 90 days ##90 10/05/17 02/21/24 History promethazine 25 mg tablet 25 mg PO NEEDED PRN Nausea 45 10/05/17 02/21/24 History days ##180 propranolol 20 mg tablet 20 mg PO DAILY bp 90 days ##180 10/05/17 02/21/24 History aspirin 81 mg tablet,delayed 81 mg PO DAILY unknown 12/12/19 02/21/24 History release biotin 5,000 mcg disintegrating 5,000 mcg PO DAILY Supplement 12/12/19 02/21/24 History tablet fluticasone propionate 50 2 spray intranasal DAILY allergies 06/06/20 02/21/24 Rx mcg/actuation nasal 30 days #16 mL spray,suspension lisinopril 10 mg tablet 10 mg PO DAILY BLOOD PRESSURE 05/26/23 02/21/24 History semaglutide 14 mg tablet (Rybelsus) 14 mg PO DAILY 05/26/23 02/21/24 History cyclobenzaprine 10 mg tablet 10 mg PO TID muscle pain #90 tabs 08/20/23 02/21/24 Rx oxycodone-acetaminophen 5 mg-325 1 tab PO QID PRN Pain #120 tabs 02/21/24 Rx mg tablet oxycodone-acetaminophen 5 mg-325 1 tab PO QID #20 tabs 03/08/24 Rx mg tablet (Percocet) New Prescriptions to Start Prescriptions: Allergies Allergy/AdvReac Type Severity Reaction Status Date / Time acetaminophen Allergy Unknown NA-NAUSEA/V Verified 10/28/23 13:03 [From TYLENOL-CODEINE #3] OMITING codeine Allergy Unknown NA-NAUSEA/V Verified 10/28/23 13:03 [From TYLENOL-CODEINE #3] OMITING erythromycin base Allergy Unknown NA-NAUSEA/V Verified 10/28/23 13:03 [ERYTHROMYCIN BASE] OMITING methadone [METHADONE] Allergy Unknown UNKNOWN Verified 10/28/23 13:03 morphine [MORPHINE] Allergy Unknown UNKNOWN Verified 10/28/23 13:03 Penicillins [PENICILLINS] Allergy Unknown NA-NAUSEA/V Verified 10/28/23 13:03 OMITING Sulfa (Sulfonamide Allergy Unknown NA-NAUSEA/V Verified 10/28/23 13:03 Antibiotics) OMITING [SULFA (SULFONAMIDE ANTIBIOTICS)] Assessment and Plan *Assessment and plan (1) Degenerative disc disease, cervical: Status: Acute Category: Medical Code(s): M50.30 - Other cervical disc degeneration, unspecified cervical region (2) Degenerative disc disease, lumbar: Status: Acute Category: Medical Code(s): M51.36 - Other intervertebral disc degeneration, lumbar region (3) Cervical radiculopathy: Status: Acute Category: Medical Code(s): M54.12 - Radiculopathy, cervical region (4) Lumbar radiculopathy: Status: Acute Category: Medical Code(s): M54.16 - Radiculopathy, lumbar region Plan I will send in a new prescription of Percocet 7.5 mg 4 times a day and provide a 1 month supply of this medication. Patient will return to clinic in 1 month for reevaluation of symptoms and plan of care. Risks and benefits of the medication have been explained in detail to the patient. The patient does understand the risk of dependence on the medication when given over a prolonged period. Patient has been advised of risks of oversedation with the prescribed medication. Narcan has been offered to the paitent in the event of oversedation. Patient has been advised that a family member should also be educated regarding administration of Narcan. The patient has been advised to consult with his/her primary care provider and pharmacist regarding drug-drug interaction of medications currently prescribed. Patient has been prescribed a controlled substance after being counseled on the medication, medication safety, and possible side effects. Opioid contract was reviewed and signed by the patient, and that they have agreed to all of the terms set forth by our compliance program. Patient has been instructed to contact the clinic with any concerns before the next appointment. Dr. Valderrama has reviewed this note and agrees with this plan of care. This note was dictated using voice recognition software and make contain errors or omissions.
[2024-03-27 14:38] VITALS: PULSE 65; RESP 16; BMI 39.3
== END 2024-03-27 23:59 | disposition home or self-care (01) ==
PROVIDERS: Visit Provider Nurse Practitioner Family
DX: M50.10 Cervical disc disorder with radiculopathy, unspecified cervical region (principal); M51.16 Intervertebral disc disorders with radiculopathy, lumbar region
CPT/HCPCS: 99212; G0463

== ENCOUNTER 2024-05-01 14:18 | Outpatient (POV) | payer MEDICARE, SELFPAY ==
[2024-05-01 15:33] VITALS: BP 161/79; PULSE 70; RESP 18; O2SAT 98; BMI 38.1
--- NOTE | 2024-05-01 17:10 | EXP.PAIN.SOA ---
[facility] Disclaimer: The information contained in this section may have been updated after the patient was seen, as this information can be updated by other users. Medical History (Updated 01/24/24 @ 15:29 by Sarah Aguilar APRN) Sleep apnea Hypothyroidism Fibromyalgia High blood pressure Gout GERD (gastroesophageal reflux disease) Surgical History History of carpal tunnel repair Hx of tonsillectomy H/O total hysterectomy Family History Other Cancer Diabetes Heart attack Hypertension No significant family history Stroke Social History Smoking Status: Never smoker second hand exposure: No alcohol intake: never substance use type: denies use current occupational status: retired Travel in the last 8 weeks: None household members: spouse housing: house caffeine: Yes PM Subjective & Objective Subjective Subjective:: Patient is a pleasant 68-year-old female who presents today for medication refill. Today she rates her pain a 6 out of 10. Patient does state that the medication increase did significantly improve her overall symptoms. Patient states she has been able to increase her activity with overall decreased pain. Patient is currently managed with Percocet 7.5 mg 4 times a day. She denies any side effects from this medication. Her Shabbir has been reviewed and is appropriate. Review of Systems: General: No recent weight changes, no fever, no sleep disturbances Respiratory: No cough, no shortness of air, no recurring pulmonary infections Cardiovascular/peripheral vascular: No chest pain, no palpitations, no edema, no shortness of breath Gastrointestinal: No new onset incontinence, normal bowel movements reported Genitourinary: No new onset incontinence Musculoskeletal: Low back pain Psychiatric: [Normal mood/affect] Neurological: [Denies weakness in extremities], [denies balance issues] Pain at rest (0-10 scale): 6 Objective Objective:: Physical Exam: General: Alert and oriented x3, no acute distress, pleasant and cooperative Lungs: Respirations even and unlabored, symmetrical chest expansion Eyes: PERRL Musculoskeletal: Flexion and extension of lumbar [spine] somewhat guarded secondary to pain, [antalgic gait noted] Neurological: Speech clear, no gross sensory deficit Has patient had previous pain injection?: No Conservative treatment options previously tried: Home exercise plan Length of treatment: Longer than 12 weeks Meds Home Medications and Allergies Home Medications ?Medication ?Instructions ?Recorded ?Confirmed ?Type allopurinol 100 mg tablet 100 mg PO BID gout 90 days ##180 10/05/17 05/01/24 History levothyroxine 75 mcg tablet 1 tab PO DAILY thyroid 90 days ##90 10/05/17 05/01/24 History promethazine 25 mg tablet 25 mg PO NEEDED PRN Nausea 45 10/05/17 05/01/24 History days ##180 propranolol 20 mg tablet 20 mg PO DAILY bp 90 days ##180 10/05/17 05/01/24 History aspirin 81 mg tablet,delayed 81 mg PO DAILY unknown 12/12/19 05/01/24 History release biotin 5,000 mcg disintegrating 5,000 mcg PO DAILY Supplement 12/12/19 05/01/24 History tablet fluticasone propionate 50 2 spray intranasal DAILY allergies 06/06/20 05/01/24 Rx mcg/actuation nasal 30 days #16 mL spray,suspension lisinopril 10 mg tablet 10 mg PO DAILY BLOOD PRESSURE 05/26/23 05/01/24 History semaglutide 14 mg tablet (Rybelsus) 14 mg PO DAILY 05/26/23 05/01/24 History cyclobenzaprine 10 mg tablet 10 mg PO TID muscle pain #90 tabs 08/20/23 05/01/24 Rx oxycodone-acetaminophen 5 mg-325 1 tab PO QID PRN Pain #120 tabs 02/21/24 05/01/24 Rx mg tablet New Prescriptions to Start Prescriptions: Allergies Allergy/AdvReac Type Severity Reaction Status Date / Time acetaminophen Allergy Unknown NA-NAUSEA/V Verified 10/28/23 13:03 [From TYLENOL-CODEINE #3] OMITING codeine Allergy Unknown NA-NAUSEA/V Verified 10/28/23 13:03 [From TYLENOL-CODEINE #3] OMITING erythromycin base Allergy Unknown NA-NAUSEA/V Verified 10/28/23 13:03 [ERYTHROMYCIN BASE] OMITING methadone [METHADONE] Allergy Unknown UNKNOWN Verified 10/28/23 13:03 morphine [MORPHINE] Allergy Unknown UNKNOWN Verified 10/28/23 13:03 Penicillins [PENICILLINS] Allergy Unknown NA-NAUSEA/V Verified 10/28/23 13:03 OMITING Sulfa (Sulfonamide Allergy Unknown NA-NAUSEA/V Verified 10/28/23 13:03 Antibiotics) OMITING [SULFA (SULFONAMIDE ANTIBIOTICS)] Assessment and Plan *Assessment and plan (1) Cervical radiculopathy: Status: Acute Category: Medical Code(s): M54.12 - Radiculopathy, cervical region (2) Degenerative disc disease, lumbar: Status: Acute Category: Medical Code(s): M51.36 - Other intervertebral disc degeneration, lumbar region (3) Degenerative disc disease, cervical: Status: Acute Category: Medical Code(s): M50.30 - Other cervical disc degeneration, unspecified cervical region (4) Lumbar radiculopathy: Status: Acute Category: Medical Code(s): M54.16 - Radiculopathy, lumbar region Plan We will refill the patient's Percocet and provide a 1 month supply of this medication. Patient will return to clinic in 1 month for reevaluation of symptoms and plan of care. Risks and benefits of the medication have been explained in detail to the patient. The patient does understand the risk of dependence on the medication when given over a prolonged period. Patient has been advised of risks of oversedation with the prescribed medication. Narcan has been offered to the paitent in the event of oversedation. Patient has been advised that a family member should also be educated regarding administration of Narcan. The patient has been advised to consult with his/her primary care provider and pharmacist regarding drug-drug interaction of medications currently prescribed. Patient has been prescribed a controlled substance after being counseled on the medication, medication safety, and possible side effects. Opioid contract was reviewed and signed by the patient, and that they have agreed to all of the terms set forth by our compliance program. Patient has been instructed to contact the clinic with any concerns before the next appointment. Dr. Valderrama has reviewed this note and agrees with this plan of care. This note was dictated using voice recognition software and make contain errors or omissions.
== END 2024-05-01 23:59 | disposition home or self-care (01) ==
PROVIDERS: PCP Family Medicine; Visit Provider Nurse Practitioner Family
DX: M51.16 Intervertebral disc disorders with radiculopathy, lumbar region (principal); M50.10 Cervical disc disorder with radiculopathy, unspecified cervical region
CPT/HCPCS: 99212; G0463

== ENCOUNTER 2024-06-01 14:06 | Outpatient (POV) | payer MEDICARE, SELFPAY ==
[2024-06-01 14:44] VITALS: BP 146/72; PULSE 75; RESP 16; O2SAT 99; BMI 38.2
--- NOTE | 2024-06-01 14:49 | A.OFFVIS_ITS ---
[facility] Disclaimer: The information contained in this section may have been updated after the patient was seen, as this information can be updated by other users. Medical History (Updated 01/24/24 @ 15:29 by Sarah Aguilar APRN) Sleep apnea Hypothyroidism Fibromyalgia High blood pressure Gout GERD (gastroesophageal reflux disease) Surgical History History of carpal tunnel repair Hx of tonsillectomy H/O total hysterectomy Family History Other Cancer Diabetes Heart attack Hypertension No significant family history Stroke Social History Smoking Status: Never smoker second hand exposure: No alcohol intake: never substance use type: denies use current occupational status: other Travel in the last 8 weeks: None household members: spouse housing: house caffeine: Yes PM Subjective & Objective Subjective Subjective:: Patient is a pleasant 68-year-old female who presents today for medication refill and follow-up. Today she rates her pain a 6 out of 10. She denies any new trauma or injury. She is currently managed with Percocet 7.5 mg 4 times a day. She denies any side effects from this medication. She does state that she is having a little bit trouble currently with transportation and was asking whether or not if we could possibly see her every other month at this point. Her Shabbir has been reviewed and is appropriate. Review of Systems: General: No recent weight changes, no fever, no sleep disturbances Respiratory: No cough, no shortness of air, no recurring pulmonary infections Cardiovascular/peripheral vascular: No chest pain, no palpitations, no edema, no shortness of breath Gastrointestinal: No new onset incontinence, normal bowel movements reported Genitourinary: No new onset incontinence Musculoskeletal: Low back pain Psychiatric: [Normal mood/affect] Neurological: [Denies weakness in extremities], [denies balance issues] Pain at rest (0-10 scale): 6 Objective Objective:: Physical Exam: General: Alert and oriented x3, no acute distress, pleasant and cooperative Lungs: Respirations even and unlabored, symmetrical chest expansion Eyes: PERRL Musculoskeletal: Flexion and extension of lumbar [spine] somewhat guarded secondary to pain, [antalgic gait noted] Neurological: Speech clear, no gross sensory deficit Has patient had previous pain injection?: No Conservative treatment options previously tried: Home exercise plan Length of treatment: Longer than 12 weeks Meds Home Medications and Allergies Home Medications ?Medication ?Instructions ?Recorded ?Confirmed ?Type allopurinol 100 mg tablet 100 mg PO BID gout 90 days ##180 10/05/17 06/01/24 History levothyroxine 75 mcg tablet 1 tab PO DAILY thyroid 90 days ##90 10/05/17 06/01/24 History promethazine 25 mg tablet 25 mg PO NEEDED PRN Nausea 45 10/05/17 06/01/24 History days ##180 propranolol 20 mg tablet 20 mg PO DAILY bp 90 days ##180 10/05/17 06/01/24 History aspirin 81 mg tablet,delayed 81 mg PO DAILY unknown 12/12/19 06/01/24 History release biotin 5,000 mcg disintegrating 5,000 mcg PO DAILY Supplement 12/12/19 06/01/24 History tablet fluticasone propionate 50 2 spray intranasal DAILY allergies 06/06/20 06/01/24 Rx mcg/actuation nasal 30 days #16 mL spray,suspension lisinopril 10 mg tablet 10 mg PO DAILY BLOOD PRESSURE 05/26/23 06/01/24 History semaglutide 14 mg tablet (Rybelsus) 14 mg PO DAILY 05/26/23 06/01/24 History cyclobenzaprine 10 mg tablet 10 mg PO TID muscle pain #90 tabs 08/20/23 06/01/24 Rx oxycodone-acetaminophen 5 mg-325 1 tab PO QID PRN Pain #120 tabs 02/21/24 06/01/24 Rx mg tablet oxycodone-acetaminophen 7.5 mg-325 1 tab PO QID #120 tabs 05/01/24 06/01/24 Rx mg tablet (Percocet) New Prescriptions to Start Prescriptions: Allergies Allergy/AdvReac Type Severity Reaction Status Date / Time acetaminophen (From Allergy Unknown NA-NAUSEA/V Verified 10/28/23 13:03 TYLENOL-CODEINE #3) OMITING codeine (From Allergy Unknown NA-NAUSEA/V Verified 10/28/23 13:03 TYLENOL-CODEINE #3) OMITING erythromycin base Allergy Unknown NA-NAUSEA/V Verified 10/28/23 13:03 (ERYTHROMYCIN BASE) OMITING methadone (METHADONE) Allergy Unknown UNKNOWN Verified 10/28/23 13:03 morphine (MORPHINE) Allergy Unknown UNKNOWN Verified 10/28/23 13:03 Penicillins (PENICILLINS) Allergy Unknown NA-NAUSEA/V Verified 10/28/23 13:03 OMITING Sulfa (Sulfonamide Allergy Unknown NA-NAUSEA/V Verified 10/28/23 13:03 Antibiotics) (SULFA OMITING (SULFONAMIDE ANTIBIOTICS)) Assessment and Plan *Assessment and plan (1) Lumbar radiculopathy: Status: Acute Category: Medical Code(s): M54.16 - Radiculopathy, lumbar region (2) Cervical radiculopathy: Status: Acute Category: Medical Code(s): M54.12 - Radiculopathy, cervical region (3) Degenerative disc disease, lumbar: Status: Acute Category: Medical Code(s): M51.36 - Other intervertebral disc degeneration, lumbar region (4) Degenerative disc disease, cervical: Status: Acute Category: Medical Code(s): M50.30 - Other cervical disc degeneration, unspecified cervical region Plan I will refill the patient's Percocet and provide a 1 month supply of this medication. Patient will return to clinic in 1 month via telehealth appointment for medication refill and follow-up. Patient was counseled that we can do this as a temporary basis until she has her transportation issues worked out. Patient agrees with this plan of care. Risks and benefits of the medication have been explained in detail to the patient. The patient does understand the risk of dependence on the medication when given over a prolonged period. Patient has been advised of risks of oversedation with the prescribed medi cation. Narcan has been offered to the paitent in the event of oversedation. Patient has been advised that a family member should also be educated regarding administration of Narcan. The patient has been advised to consult with his/her primary care provider and pharmacist regarding drug-drug interaction of medications currently prescribed. Patient has been prescribed a controlled substance after being counseled on the medication, medication safety, and possible side effects. Opioid contract was reviewed and signed by the patient, and that they have agreed to all of the terms set forth by our compliance program. Patient has been instructed to contact the clinic with any concerns before the next appointment. Dr. Valderrama has reviewed this note and agrees with this plan of care. This note was dictated using voice recognition software and make contain errors or omissions.
== END 2024-06-01 23:59 | disposition home or self-care (01) ==
PROVIDERS: PCP Family Medicine; Visit Provider Nurse Practitioner Family
DX: M51.16 Intervertebral disc disorders with radiculopathy, lumbar region (principal); M50.10 Cervical disc disorder with radiculopathy, unspecified cervical region
CPT/HCPCS: 99212; G0463

== ENCOUNTER 2024-06-26 14:45 | Outpatient (POV) | payer MEDICARE, SELFPAY ==
--- NOTE | 2024-06-26 14:49 | EXP.PAIN.SOA ---
[facility] Disclaimer: The information contained in this section may have been updated after the patient was seen, as this information can be updated by other users. Medical History (Updated 01/24/24 @ 15:29 by Sarah Aguilar APRN) Sleep apnea Hypothyroidism Fibromyalgia High blood pressure Gout GERD (gastroesophageal reflux disease) Surgical History History of carpal tunnel repair Hx of tonsillectomy H/O total hysterectomy Family History Other Cancer Diabetes Heart attack Hypertension No significant family history Stroke Social History Smoking Status: Never smoker second hand exposure: No alcohol intake: never substance use type: denies use current occupational status: other Travel in the last 8 weeks: None household members: spouse housing: house caffeine: Yes PM Subjective & Objective Subjective Subjective:: Patient is a pleasant 68-year-old female who presents today via telehealth appointment for medication refill. Today she rates her pain a 6 out of 10. She denies any new injury or trauma. She does state that she feels like she has been having more pain and it may be in fact weather related. Patient denies any side effects from her medication. She is currently managed with Percocets 7.5 mg 4 times a day. Her Shabbir has been reviewed and is appropriate. Review of Systems: General: No recent weight changes, no fever, no sleep disturbances Respiratory: No cough, no shortness of air, no recurring pulmonary infections Cardiovascular/peripheral vascular: No chest pain, no palpitations, no edema, no shortness of breath Gastrointestinal: No new onset incontinence, normal bowel movements reported Genitourinary: No new onset incontinence Musculoskeletal: Low back pain Psychiatric: [Normal mood/affect] Neurological: [Denies weakness in extremities], [denies balance issues] Pain at rest (0-10 scale): 6 Objective Objective:: General: Alert and oriented x3, pleasant and cooperative Lungs: Patient is able to say complete sentences without dyspnea Neurological: Speech clear Has patient had previous pain injection?: No Conservative treatment options previously tried: Home exercise plan Length of treatment: Longer than 6 weeks Meds Home Medications and Allergies Home Medications ?Medication ?Instructions ?Recorded ?Confirmed ?Type allopurinol 100 mg tablet 100 mg PO BID gout 90 days ##180 10/05/17 06/01/24 History levothyroxine 75 mcg tablet 1 tab PO DAILY thyroid 90 days ##90 10/05/17 06/01/24 History promethazine 25 mg tablet 25 mg PO NEEDED PRN Nausea 45 10/05/17 06/01/24 History days ##180 propranolol 20 mg tablet 20 mg PO DAILY bp 90 days ##180 10/05/17 06/01/24 History aspirin 81 mg tablet,delayed 81 mg PO DAILY unknown 12/12/19 06/01/24 History release biotin 5,000 mcg disintegrating 5,000 mcg PO DAILY Supplement 12/12/19 06/01/24 History tablet fluticasone propionate 50 2 spray intranasal DAILY allergies 06/06/20 06/01/24 Rx mcg/actuation nasal 30 days #16 mL spray,suspension lisinopril 10 mg tablet 10 mg PO DAILY BLOOD PRESSURE 05/26/23 06/01/24 History semaglutide 14 mg tablet (Rybelsus) 14 mg PO DAILY 05/26/23 06/01/24 History cyclobenzaprine 10 mg tablet 10 mg PO TID muscle pain #90 tabs 08/20/23 06/01/24 Rx oxycodone-acetaminophen 5 mg-325 1 tab PO QID PRN Pain #120 tabs 02/21/24 06/01/24 Rx mg tablet oxycodone-acetaminophen 7.5 mg-325 1 tab PO QID #120 tabs 06/01/24 Rx mg tablet (Percocet) New Prescriptions to Start Prescriptions: Allergies Allergy/AdvReac Type Severity Reaction Status Date / Time acetaminophen (From Allergy Unknown NA-NAUSEA/V Verified 10/28/23 13:03 TYLENOL-CODEINE #3) OMITING codeine (From Allergy Unknown NA-NAUSEA/V Verified 10/28/23 13:03 TYLENOL-CODEINE #3) OMITING erythromycin base Allergy Unknown NA-NAUSEA/V Verified 10/28/23 13:03 (ERYTHROMYCIN BASE) OMITING methadone (METHADONE) Allergy Unknown UNKNOWN Verified 10/28/23 13:03 morphine (MORPHINE) Allergy Unknown UNKNOWN Verified 10/28/23 13:03 Penicillins (PENICILLINS) Allergy Unknown NA-NAUSEA/V Verified 10/28/23 13:03 OMITING Sulfa (Sulfonamide Allergy Unknown NA-NAUSEA/V Verified 10/28/23 13:03 Antibiotics) (SULFA OMITING (SULFONAMIDE ANTIBIOTICS)) Assessment and Plan *Assessment and plan (1) Lumbar radiculopathy: Status: Acute Category: Medical Code(s): M54.16 - Radiculopathy, lumbar region (2) Cervical radiculopathy: Status: Acute Category: Medical Code(s): M54.12 - Radiculopathy, cervical region (3) Degenerative disc disease, lumbar: Status: Acute Category: Medical Code(s): M51.36 - Other intervertebral disc degeneration, lumbar region (4) Degenerative disc disease, cervical: Status: Acute Category: Medical Code(s): M50.30 - Other cervical disc degeneration, unspecified cervical region Plan Patient did give verbal consent for this audio appointment and it was occurring at the patient's home. I will refill the patient's Percocet and provide a 1 month supply of this medication. Patient will return to clinic in person for her next 1 month follow-up. This visit did occur from -. Risks and benefits of the medication have been explained in detail to the patient. The patient does understand the risk of dependence on the medication when given over a prolonged period. Patient has been advised of risks of oversedation with the prescribed medication. Narcan has been offered to the paitent in the event of oversedation. Patient has been advised that a family member should also be educated regarding administration of Narcan. The patient has been advised to consult with his/her primary care provider and pharmacist regarding drug-drug interaction of medications currently prescribed. Patient has been prescribed a controlled substance after being counseled on the medication, medication safety, and possible side effects. Opioid contract was reviewed and signed by the patient, and that they have agreed to all of the terms set forth by our compliance program. Patient has been instructed to contact the clinic with any concerns before the next appointment. Dr. Valderrama has reviewed this note and agrees with this plan of care. This note was dictated using voice recognition software and make contain errors or omissions.
== END 2024-06-26 23:59 | disposition home or self-care (01) ==
PROVIDERS: Visit Provider Nurse Practitioner Family
DX: M51.16 Intervertebral disc disorders with radiculopathy, lumbar region (principal); M50.10 Cervical disc disorder with radiculopathy, unspecified cervical region
CPT/HCPCS: 99212; G0463

== ENCOUNTER 2024-08-04 14:51 | Outpatient (POV) | payer MEDICARE, SELFPAY ==
[2024-08-04 15:37] VITALS: BP 138/94; PULSE 69; RESP 16; O2SAT 97; BMI 41.1
--- NOTE | 2024-08-04 15:37 | A.OFFVIS_ITS ---
[facility] Disclaimer: The information contained in this section may have been updated after the patient was seen, as this information can be updated by other users. Medical History (Updated 01/24/24 @ 15:29 by Sarah Aguilar APRN) Sleep apnea Hypothyroidism Fibromyalgia High blood pressure Gout GERD (gastroesophageal reflux disease) Surgical History History of carpal tunnel repair Hx of tonsillectomy H/O total hysterectomy Family History Other Cancer Diabetes Heart attack Hypertension No significant family history Stroke Social History Smoking Status: Never smoker second hand exposure: No alcohol intake: never substance use type: denies use current occupational status: other Travel in the last 8 weeks: None household members: spouse housing: house caffeine: Yes PM Subjective & Objective Subjective Subjective:: Patient is a pleasant 68-year-old female who presents today for medication refill and follow-up. Today she rates her pain a 7 out of 10. She does state that she has had a couple falls related to this now however denies any significant injury. Patient does make mention today that her pharmacy has only been giving her a 5 days dose of her prescription medication for several visits now. Patient does state that they did try and tell her that it was written that way from our office. Patient is currently managed with Percocet 7.5 mg 4 times a day. She denies any side effects from this medication. Her Shabbir has been reviewed and is appropriate. Review of Systems: General: No recent weight changes, no fever, no sleep disturbances Respiratory: No cough, no shortness of air, no recurring pulmonary infections Cardiovascular/peripheral vascular: No chest pain, no palpitations, no edema, no shortness of breath Gastrointestinal: No new onset incontinence, normal bowel movements reported Genitourinary: No new onset incontinence Musculoskeletal: Low back pain Psychiatric: [Normal mood/affect] Neurological: [Denies weakness in extremities], [denies balance issues] Pain at rest (0-10 scale): 7 Objective Objective:: Physical Exam: General: Alert and oriented x3, no acute distress, pleasant and cooperative Lungs: Respirations even and unlabored, symmetrical chest expansion Eyes: PERRL Musculoskeletal: Flexion and extension of lumbar [spine] somewhat guarded secondary to pain, [antalgic gait noted] Neurological: Speech clear, no gross sensory deficit Has patient had previous pain injection?: No Conservative treatment options previously tried: Prescription medications Length of treatment: Longer than 12 weeks Meds Home Medications and Allergies Home Medications ?Medication ?Instructions ?Recorded ?Confirmed ?Type allopurinol 100 mg tablet 100 mg PO BID gout 90 days ##180 10/05/17 06/01/24 History levothyroxine 75 mcg tablet 1 tab PO DAILY thyroid 90 days ##90 10/05/17 06/01/24 History promethazine 25 mg tablet 25 mg PO NEEDED PRN Nausea 45 10/05/17 06/01/24 History days ##180 propranolol 20 mg tablet 20 mg PO DAILY bp 90 days ##180 10/05/17 06/01/24 History aspirin 81 mg tablet,delayed 81 mg PO DAILY unknown 12/12/19 06/01/24 History release biotin 5,000 mcg disintegrating 5,000 mcg PO DAILY Supplement 12/12/19 06/01/24 History tablet fluticasone propionate 50 2 spray intranasal DAILY allergies 06/06/20 06/01/24 Rx mcg/actuation nasal 30 days #16 mL spray,suspension lisinopril 10 mg tablet 10 mg PO DAILY BLOOD PRESSURE 05/26/23 06/01/24 History semaglutide 14 mg tablet (Rybelsus) 14 mg PO DAILY 05/26/23 06/01/24 History cyclobenzaprine 10 mg tablet 10 mg PO TID muscle pain #90 tabs 08/20/23 06/01/24 Rx oxycodone-acetaminophen 5 mg-325 1 tab PO QID PRN Pain #120 tabs 02/21/24 06/01/24 Rx mg tablet oxycodone-acetaminophen 7.5 mg-325 1 tab PO QID #120 tabs 06/26/24 Rx mg tablet (Percocet) oxycodone-acetaminophen 7.5 mg-325 1 tab PO QID #20 tabs 07/26/24 Rx mg tablet (Percocet) New Prescriptions to Start Prescriptions: Allergies Allergy/AdvReac Type Severity Reaction Status Date / Time acetaminophen (From Allergy Unknown NA-NAUSEA/V Verified 10/28/23 13:03 TYLENOL-CODEINE #3) OMITING codeine (From Allergy Unknown NA-NAUSEA/V Verified 10/28/23 13:03 TYLENOL-CODEINE #3) OMITING erythromycin base Allergy Unknown NA-NAUSEA/V Verified 10/28/23 13:03 (ERYTHROMYCIN BASE) OMITING methadone (METHADONE) Allergy Unknown UNKNOWN Verified 10/28/23 13:03 morphine (MORPHINE) Allergy Unknown UNKNOWN Verified 10/28/23 13:03 Penicillins (PENICILLINS) Allergy Unknown NA-NAUSEA/V Verified 10/28/23 13:03 OMITING Sulfa (Sulfonamide Allergy Unknown NA-NAUSEA/V Verified 10/28/23 13:03 Antibiotics) (SULFA OMITING (SULFONAMIDE ANTIBIOTICS)) Assessment and Plan *Assessment and plan (1) Lumbar radiculopathy: Status: Acute Category: Medical Code(s): M54.16 - Radiculopathy, lumbar region (2) Degenerative disc disease, lumbar: Status: Acute Category: Medical Code(s): M51.369 - Other intervertebral disc degeneration, lumbar region without mention of lumbar back pain or lower extremity pain Plan I did discuss with the patient that it is written as a 30-day supply. Her last prescription was written as a shorter dose due to the fact that she had previously been scheduled earlier this month but had to reschedule due to the weather that came in. Due to that fact she only got a temporary dose to get to this appointment. Patient was counseled that we will send in a full month supply today and that if she has any difficulty with her pharmacy to please call us back and let us know. Patient agrees with this plan of care. Risks and benefits of the medication have been explained in detail to the patient. The patient does understand the risk of dependence on the medication when given over a prolonged period. Patient has been advised of risks of oversedation with the prescribed medication. Narcan has been offered to the paitent in the event of oversedation. Patient has been advised that a family member should also be educated regarding administration of Narcan. The patient has been advised to consult with his/her primary care provider and pharmacist regarding drug-drug interaction of medications currently prescribed. Patient has been prescribed a controlled substance after being counseled on the medication, medication safety, and possible side effects. Opioid contract was reviewed and signed by the patient, and that they have agreed to all of the terms set forth by our compliance program. A UDS is needed to verify patient's compliance with our office pain contract. This is ordered based off specific treatments related to chronic pain with the potential to abuse certain medications. Patient has been instructed to contact the clinic with any concerns before the next appointment. Dr. Valderrama has reviewed this note and agrees with this plan of care. This note was dictated using voice recognition software and make contain errors or omissions.
== END 2024-08-04 23:59 | disposition home or self-care (01) ==
PROVIDERS: Visit Provider Nurse Practitioner Family
DX: M51.16 Intervertebral disc disorders with radiculopathy, lumbar region (principal)
CPT/HCPCS: 99212; G0463

== ENCOUNTER 2024-09-01 14:12 | Outpatient (POV) | payer MEDICARE, SELFPAY ==
--- NOTE | 2024-09-01 14:15 | A.OFFVIS_ITS ---
[facility] Disclaimer: The information contained in this section may have been updated after the patient was seen, as this information can be updated by other users. Medical History (Updated 01/24/24 @ 15:29 by Sarah Aguilar APRN) Sleep apnea Hypothyroidism Fibromyalgia High blood pressure Gout GERD (gastroesophageal reflux disease) Surgical History History of carpal tunnel repair Hx of tonsillectomy H/O total hysterectomy Family History Other Cancer Diabetes Heart attack Hypertension No significant family history Stroke Social History Smoking Status: Never smoker second hand exposure: No alcohol intake: never substance use type: denies use current occupational status: other Travel in the last 8 weeks: None household members: spouse housing: house caffeine: Yes Have you lived/traveled outside [place] in past 30 days?: No Contact w/someone who lives/traveled outside [place] past 30 days?: No Exposure to someone with infectious disease in past 14 days?: No Do you have a fever (greater than 100.4 F or 38 C)?: No Have you tested positive for COVID-19: No Exposed to someone with COVID-19 in past 14 days?: No Do you have a sore throat?: No Do you have a cough?: No Do you have any weakness?: No Do you have any diarrhea?: No Are you experiencing any unusual bleeding?: No Do you have any muscle aches/pain?: No Do you have any abdominal pain?: No Are you experiencing loss of taste or smell?: No PM Subjective & Objective Subjective Subjective:: Patient is a pleasant 68-year-old female who presents today for medication refill and monthly follow-up. Today she rates her pain a 7 out of 10. She denies any new trauma or injury. Patient is currently managed with Percocet 7.5 mg 4 times a day from our office. She denies any side effects. Her Shabbir has been reviewed and is appropriate. Review of Systems: General: No recent weight changes, no fever, no sleep disturbances Respiratory: No cough, no shortness of air, no recurring pulmonary infections Cardiovascular/peripheral vascular: No chest pain, no palpitations, no edema, no shortness of breath Gastrointestinal: No new onset incontinence, normal bowel movements reported Genitourinary: No new onset incontinence Musculoskeletal: Low back pain Psychiatric: [Normal mood/affect] Neurological: [Denies weakness in extremities], [denies balance issues] Pain at rest (0-10 scale): 7 Objective Objective:: Physical Exam: General: Alert and oriented x3, no acute distress, pleasant and cooperative Lungs: Respirations even and unlabored, symmetrical chest expansion Eyes: PERRL Musculoskeletal: Flexion and extension of lumbar [spine] somewhat guarded secondary to pain, [antalgic gait noted] Neurological: Speech clear, no gross sensory deficit Has patient had previous pain injection?: No Conservative treatment options previously tried: Prescription medications Length of treatment: Longer than 12 weeks Meds Home Medications and Allergies Home Medications ?Medication ?Instructions ?Recorded ?Confirmed ?Type allopurinol 100 mg tablet 100 mg PO BID gout 90 days ##180 10/05/17 08/04/24 History levothyroxine 75 mcg tablet 1 tab PO DAILY thyroid 90 days ##90 10/05/17 08/04/24 History promethazine 25 mg tablet 25 mg PO NEEDED PRN Nausea 45 10/05/17 08/04/24 History days ##180 propranolol 20 mg tablet 20 mg PO DAILY bp 90 days ##180 10/05/17 08/04/24 History aspirin 81 mg tablet,delayed 81 mg PO DAILY unknown 12/12/19 08/04/24 History release biotin 5,000 mcg disintegrating 5,000 mcg PO DAILY Supplement 12/12/19 08/04/24 History tablet fluticasone propionate 50 2 spray intranasal DAILY allergies 06/06/20 08/04/24 Rx mcg/actuation nasal 30 days #16 mL spray,suspension lisinopril 10 mg tablet 10 mg PO DAILY BLOOD PRESSURE 05/26/23 08/04/24 History semaglutide 14 mg tablet (Rybelsus) 14 mg PO DAILY 05/26/23 08/04/24 History cyclobenzaprine 10 mg tablet 10 mg PO TID muscle pain #90 tabs 08/20/23 08/04/24 Rx oxycodone-acetaminophen 7.5 mg-325 1 tab PO QID #20 tabs 07/26/24 08/04/24 Rx mg tablet (Percocet) oxycodone-acetaminophen 7.5 mg-325 1 tab PO QID #120 tabs 09/01/24 Rx mg tablet (Percocet) New Prescriptions to Start Prescriptions: oxycodone-acetaminophen [Percocet] Bux,Jose R Allergies Allergy/AdvReac Type Severity Reaction Status Date / Time acetaminophen (From Allergy Unknown NA-NAUSEA/V Verified 10/28/23 13:03 TYLENOL-CODEINE #3) OMITING codeine (From Allergy Unknown NA-NAUSEA/V Verified 10/28/23 13:03 TYLENOL-CODEINE #3) OMITING erythromycin base Allergy Unknown NA-NAUSEA/V Verified 10/28/23 13:03 (ERYTHROMYCIN BASE) OMITING methadone (METHADONE) Allergy Unknown UNKNOWN Verified 10/28/23 13:03 morphine (MORPHINE) Allergy Unknown UNKNOWN Verified 10/28/23 13:03 Penicillins (PENICILLINS) Allergy Unknown NA-NAUSEA/V Verified 10/28/23 13:03 OMITING Sulfa (Sulfonamide Allergy Unknown NA-NAUSEA/V Verified 10/28/23 13:03 Antibiotics) (SULFA OMITING (SULFONAMIDE ANTIBIOTICS)) Assessment and Plan *Assessment and plan (1) Degenerative disc disease, lumbar: Status: Acute Category: Medical Code(s): M51.369 - Other intervertebral disc degeneration, lumbar region without mention of lumbar back pain or lower extremity pain (2) Cervical radiculopathy: Status: Acute Category: Medical Code(s): M54.12 - Radiculopathy, cervical region (3) Lumbar radiculopathy: Status: Acute Category: Medical Code(s): M54.16 - Radiculopathy, lumbar region (4) Degenerative disc disease, cervical: Status: Acute Category: Medical Code(s): M50.30 - Other cervical disc degeneration, unspecified cervical region Plan We will refill the patient's Percocet and provide a 1 month supply of this medication. Patient will return to clinic in 1 month. Risks and benefits of the medication have been explained in detail to the patient. The patient does understand the risk of dependence on the medication when given over a prolonged period. Patient has been advised of risks of oversedation with the prescribed medication. Narcan has been offered to the paitent in the event of oversedation. Patient has been advised that a family member should also be educated regarding administration of Narcan. The patient has been advised to consult with his/her primary care provider and pharmacist regarding drug-drug interaction of medications currently prescribed. Patient has been prescribed a controlled substance after being counseled on the medication, medication safety, and possible side effects. Opioid contract was reviewed and signed by the patient, and that they have agreed to all of the terms set forth by our compliance program. A UDS is needed to verify patient's compliance with our office pain contract. This is ordered based off specific treatments related to chronic pain with the potential to abuse certain medications. Patient has been instructed to contact the clinic with any concerns before the next appointment. Dr. Valderrama has reviewed this note and agrees with this plan of care. This note was dictated using voice recognition software and make contain errors or omissions.
[2024-09-01 14:21] VITALS: BP 135/61; PULSE 72; RESP 18; O2SAT 100; BMI 23.3
== END 2024-09-01 23:59 | disposition home or self-care (01) ==
PROVIDERS: PCP Family Medicine; Visit Provider Nurse Practitioner Family
DX: M51.16 Intervertebral disc disorders with radiculopathy, lumbar region (principal); M50.10 Cervical disc disorder with radiculopathy, unspecified cervical region
CPT/HCPCS: 99212; G0463

== ENCOUNTER 2024-09-29 13:56 | Outpatient (POV) | payer MEDICARE, SELFPAY ==
[2024-09-29 14:09] VITALS: BP 138/94; BP 157/100; PULSE 70; RESP 14; O2SAT 98; BMI 42.9
--- NOTE | 2024-09-29 14:17 | EXP.PAIN.SOA ---
[facility] Disclaimer: The information contained in this section may have been updated after the patient was seen, as this information can be updated by other users. Medical History (Updated 09/29/24 @ 14:19 by Sarah Aguilar APRN) Sleep apnea Hypothyroidism Fibromyalgia High blood pressure Gout GERD (gastroesophageal reflux disease) Surgical History History of carpal tunnel repair Hx of tonsillectomy H/O total hysterectomy Family History Other Cancer Diabetes Heart attack Hypertension No significant family history Stroke Social History Smoking Status: Never smoker second hand exposure: No alcohol intake: never substance use type: denies use current occupational status: other Travel in the last 8 weeks: None household members: spouse housing: house caffeine: Yes PM Subjective & Objective Subjective Subjective:: Patient is a pleasant 68-year-old female who presents today for her monthly medication refill. Today she rates her pain an 8 out of 10. Patient states she is just having a lot of overall back pain as well as bilateral knee pain. Patient does state that this is a chronic issue however just has been extremely worse the last week. Patient does state that she did have a right knee replacement in the past and only had a knee procedure on the left to fix a hole in her kneecap however denies any replacement on that side. Patient has not had any injections in the past. Patient is currently managed with Percocet 7.5 mg 4 times a day from our office. She denies any side effects. Her Shabbir has been reviewed and is appropriate. Review of Systems: General: No recent weight changes, no fever, no sleep disturbances Respiratory: No cough, no shortness of air, no recurring pulmonary infections Cardiovascular/peripheral vascular: No chest pain, no palpitations, no edema, no shortness of breath Gastrointestinal: No new onset incontinence, normal bowel movements reported Genitourinary: No new onset incontinence Musculoskeletal: Back pain, bilateral knee pain Psychiatric: [Normal mood/affect] Neurological: [Denies weakness in extremities], [denies balance issues] Pain at rest (0-10 scale): 8 Objective Objective:: Physical Exam: General: Alert and oriented x3, no acute distress, pleasant and cooperative Lungs: Respirations even and unlabored, symmetrical chest expansion Eyes: PERRL Musculoskeletal: Flexion and extension of bilateral knees somewhat guarded secondary to pain, [antalgic gait noted] Neurological: Speech clear, no gross sensory deficit Has patient had previous pain injection?: No Conservative treatment options previously tried: Home exercise plan Length of treatment: Longer than 12 weeks Meds Home Medications and Allergies Home Medications ?Medication ?Instructions ?Recorded ?Confirmed ?Type allopurinol 100 mg tablet 100 mg PO BID gout 90 days ##180 10/05/17 09/29/24 History levothyroxine 75 mcg tablet 1 tab PO DAILY thyroid 90 days ##90 10/05/17 09/29/24 History promethazine 25 mg tablet 25 mg PO NEEDED PRN Nausea 45 10/05/17 09/29/24 History days ##180 propranolol 20 mg tablet 20 mg PO DAILY bp 90 days ##180 10/05/17 09/29/24 History aspirin 81 mg tablet,delayed 81 mg PO DAILY unknown 12/12/19 09/29/24 History release biotin 5,000 mcg disintegrating 5,000 mcg PO DAILY Supplement 12/12/19 09/29/24 History tablet fluticasone propionate 50 2 spray intranasal DAILY allergies 06/06/20 09/29/24 Rx mcg/actuation nasal 30 days #16 mL spray,suspension lisinopril 10 mg tablet 10 mg PO DAILY BLOOD PRESSURE 05/26/23 09/29/24 History semaglutide 14 mg tablet (Rybelsus) 14 mg PO DAILY 05/26/23 09/29/24 History cyclobenzaprine 10 mg tablet 10 mg PO TID muscle pain #90 tabs 08/20/23 09/29/24 Rx oxycodone-acetaminophen 7.5 mg-325 1 tab PO QID #20 tabs 07/26/24 09/29/24 Rx mg tablet (Percocet) oxycodone-acetaminophen 7.5 mg-325 1 tab PO QID #120 tabs 09/01/24 09/29/24 Rx mg tablet (Percocet) New Prescriptions to Start Prescriptions: Allergies Allergy/AdvReac Type Severity Reaction Status Date / Time acetaminophen (From Allergy Unknown NA-NAUSEA/V Verified 10/28/23 13:03 TYLENOL-CODEINE #3) OMITING codeine (From Allergy Unknown NA-NAUSEA/V Verified 10/28/23 13:03 TYLENOL-CODEINE #3) OMITING erythromycin base Allergy Unknown NA-NAUSEA/V Verified 10/28/23 13:03 (ERYTHROMYCIN BASE) OMITING methadone (METHADONE) Allergy Unknown UNKNOWN Verified 10/28/23 13:03 morphine (MORPHINE) Allergy Unknown UNKNOWN Verified 10/28/23 13:03 Penicillins (PENICILLINS) Allergy Unknown NA-NAUSEA/V Verified 10/28/23 13:03 OMITING Sulfa (Sulfonamide Allergy Unknown NA-NAUSEA/V Verified 10/28/23 13:03 Antibiotics) (SULFA OMITING (SULFONAMIDE ANTIBIOTICS)) Assessment and Plan *Assessment and plan (1) Chronic pain of both knees: Status: Acute Category: Medical Code(s): M25.561 - Pain in right knee; M25.562 - Pain in left knee; G89.29 - Other chronic pain (2) Degenerative disc disease, lumbar: Status: Acute Category: Medical Code(s): M51.369 - Other intervertebral disc degeneration, lumbar region without mention of lumbar back pain or lower extremity pain (3) Degenerative disc disease, cervical: Status: Acute Category: Medical Code(s): M50.30 - Other cervical disc degeneration, unspecified cervical region Plan I did discuss with the patient that in future she may benefit from a infrapatellar nerve block along the right knee and a intra-articular knee injection on the left side. Patient was counseled if the pain does not improve and continues toprogressively worsen she can call us back between now and her next visit if she would like to proceed forward with injections. Patient was counseled that we would get her back and for follow-up so I could do additional examination. Patient agrees with this plan of care. I will refill the patient's Percocet and provide a 1 month supply of this medication. Patient will return to clinic in 1 month. Risks and benefits of the medication have been explained in detail to the patient. The patient does understand the risk of dependence on the medication when given over a prolonged period. Patient has been advised of risks of oversedation with the prescribed medication. Narcan has been offered to the paitent in the event of oversedation. Patient has been advised that a family member should also be educated regarding administration of Narcan. The patient has been advised to consult with his/her primary care provider and pharmacist regarding drug-drug interaction of medications currently prescribed. Patient has been prescribed a controlled substance after being counseled on the medication, medication safety, and possible side effects. Opioid contract was reviewed and signed by the patient, and that they have agreed to all of the terms set forth by our compliance program. A UDS is needed to verify patient's compliance with our office pain contract. This is ordered based off specific treatments related to chronic pain with the potential to abuse certain medications. Patient has been instructed to contact the clinic with any concerns before the next appointment. Dr. Valderrama has reviewed this note and agrees with this plan of care. This note was dictated using voice recognition software and make contain errors or omissions.
== END 2024-09-29 23:59 | disposition home or self-care (01) ==
PROVIDERS: Visit Provider Nurse Practitioner Family
DX: M25.561 Pain in right knee (principal); M25.562 Pain in left knee; G89.29 Other chronic pain; M51.369 Other intervertebral disc degeneration, lumbar region without mention of lumbar back pain or lower extremity pain; M50.30 Other cervical disc degeneration, unspecified cervical region; Z96.651 Presence of right artificial knee joint
CPT/HCPCS: 99212; G0463

== ENCOUNTER 2024-10-27 14:17 | Outpatient (POV) | payer MEDICARE, SELFPAY ==
[2024-10-27 14:42] VITALS: BP 145/68; PULSE 68; RESP 16; O2SAT 97; BMI 39.9
--- NOTE | 2024-10-27 16:03 | A.OFFVIS_ITS ---
[facility] Disclaimer: The information contained in this section may have been updated after the patient was seen, as this information can be updated by other users. Medical History Sleep apnea Hypothyroidism Fibromyalgia High blood pressure Gout GERD (gastroesophageal reflux disease) Surgical History History of carpal tunnel repair Hx of tonsillectomy H/O total hysterectomy Family History Other Cancer Diabetes Heart attack Hypertension No significant family history Stroke Social History Smoking Status: Never smoker second hand exposure: No alcohol intake: never substance use type: denies use current occupational status: other Travel in the last 8 weeks: None household members: spouse housing: house caffeine: Yes PM Subjective & Objective Subjective Subjective:: Patient is a pleasant 68-year-old female who presents today for monthly follow- up and medication refill as well as worsening pain in her bilateral knees. Today she rates her pain a 6 out of 10. She denies any new falls or injuries. She does state that she continues to have chronic pain in her knees and has had the right knee replaced by Dr. Welsh in [place]. Patient does state that it is constant and does seem like the weather really aggravates the symptoms. She does state the pain interferes with her ability perform activities of daily living such as cooking and cleaning. Patient denies any injection therapy in the past. She is currently managed with Percocet 7.5 mg 4 times a day from our office. She denies any side effects. Her Shabbir has been reviewed and is appropriate. Review of Systems: General: No recent weight changes, no fever, no sleep disturbances Respiratory: No cough, no shortness of air, no recurring pulmonary infections Cardiovascular/peripheral vascular: No chest pain, no palpitations, no edema, no shortness of breath Gastrointestinal: No new onset incontinence, normal bowel movements reported Genitourinary: No new onset incontinence Musculoskeletal: Bilateral knee pain Psychiatric: [Normal mood/affect] Neurological: [Denies weakness in extremities], [denies balance issues] Pain at rest (0-10 scale): 6 Objective Objective:: Physical Exam: General: Alert and oriented x3, no acute distress, pleasant and cooperative Lungs: Respirations even and unlabored, symmetrical chest expansion Eyes: PERRL Musculoskeletal: Flexion and extension of bilateral knees somewhat guarded secondary to pain, [antalgic gait noted] Neurological: Speech clear, no gross sensory deficit Has patient had previous pain injection?: No Conservative treatment options previously tried: Home exercise plan Length of treatment: Longer than 12 Meds Home Medications and Allergies Home Medications ?Medication ?Instructions ?Recorded ?Confirmed ?Type allopurinol 100 mg tablet 100 mg PO BID gout 90 days ##180 10/05/17 10/27/24 History levothyroxine 75 mcg tablet 1 tab PO DAILY thyroid 90 days ##90 10/05/17 10/27/24 History promethazine 25 mg tablet 25 mg PO NEEDED PRN Nausea 45 10/05/17 10/27/24 History days ##180 propranolol 20 mg tablet 20 mg PO DAILY bp 90 days ##180 10/05/17 10/27/24 History aspirin 81 mg tablet,delayed 81 mg PO DAILY unknown 12/12/19 10/27/24 History release biotin 5,000 mcg disintegrating 5,000 mcg PO DAILY Supplement 12/12/19 10/27/24 History tablet fluticasone propionate 50 2 spray intranasal DAILY allergies 06/06/20 10/27/24 Rx mcg/actuation nasal 30 days #16 mL spray,suspension lisinopril 10 mg tablet 10 mg PO DAILY BLOOD PRESSURE 05/26/23 10/27/24 History semaglutide 14 mg tablet (Rybelsus) 14 mg PO DAILY 05/26/23 10/27/24 History cyclobenzaprine 10 mg tablet 10 mg PO TID muscle pain #90 tabs 08/20/23 10/27/24 Rx oxycodone-acetaminophen 7.5 mg-325 1 tab PO QID #20 tabs 07/26/24 10/27/24 Rx mg tablet (Percocet) New Prescriptions to Start Prescriptions: Allergies Allergy/AdvReac Type Severity Reaction Status Date / Time acetaminophen (From Allergy Unknown NA-NAUSEA/V Verified 10/28/23 13:03 TYLENOL-CODEINE #3) OMITING codeine (From Allergy Unknown NA-NAUSEA/V Verified 10/28/23 13:03 TYLENOL-CODEINE #3) OMITING erythromycin base Allergy Unknown NA-NAUSEA/V Verified 10/28/23 13:03 (ERYTHROMYCIN BASE) OMITING methadone (METHADONE) Allergy Unknown UNKNOWN Verified 10/28/23 13:03 morphine (MORPHINE) Allergy Unknown UNKNOWN Verified 10/28/23 13:03 Penicillins (PENICILLINS) Allergy Unknown NA-NAUSEA/V Verified 10/28/23 13:03 OMITING Sulfa (Sulfonamide Allergy Unknown NA-NAUSEA/V Verified 10/28/23 13:03 Antibiotics) (SULFA OMITING (SULFONAMIDE ANTIBIOTICS)) Assessment and Plan *Assessment and plan (1) Chronic pain of both knees: Status: Acute Category: Medical Code(s): M25.561 - Pain in right knee; M25.562 - Pain in left knee; G89.29 - Other chronic pain Plan Patient is experiencing worsening pain in her bilateral knees with limited range of motion. I did discuss at length with the patient in future I do believe she would benefit from a right infrapatellar nerve block and a left intra-articular injection. Risk and benefits were discussed with the patient and at this time she is wanting to have additional time to think on it. I did discuss with the patient that if between now and her next visit that she would like to proceed forward with these options she can call our office and we will get her scheduled over the phone. Patient has tried and failed conservative therapy including oral medications, heat and ice, topicals, at home stretching exercise for longer than 12 weeks and previous physical therapy. I will refill the patient's Percocet and provide a 1 month supply of this medication. Patient will be given a tentative 1 month follow-up. Risks and benefits of the medication have been explained in detail to the patient. The patient does understand the risk of dependence on the medication when given over a prolonged period. Patient has been advised of risks of oversedation with the prescribed medication. Narcan has been offered to the paitent in the event of oversedation. Patient has been advised that a family member should also be educated regarding administration of Narcan. The patient has been advised to consult with his/her primary care provider and pharmacist regarding drug-drug interaction of medications currently prescribed. Patient has been prescribed a controlled substance after being counseled on the medication, medication safety, and possible side effects. Opioid contract was reviewed and signed by the patient, and that they have agreed to all of the terms set forth by our compliance program. A UDS is needed to verify patient's compliance with our office pain contract. This is ordered based off specific treatments related to chronic pain with the potential to abuse certain medications. Patient has been instructed to contact the clinic with any concerns before the next appointment. Dr. Valderrama has reviewed this note and agrees with this plan of care. This note was dictated using voice recognition software and make contain errors or omissions.
== END 2024-10-27 23:59 | disposition home or self-care (01) ==
PROVIDERS: PCP Family Medicine; Visit Provider Nurse Practitioner Family
DX: M25.561 Pain in right knee (principal); M25.562 Pain in left knee; G89.29 Other chronic pain; Z96.651 Presence of right artificial knee joint; Z73.89 Other problems related to life management difficulty
CPT/HCPCS: 99212; G0463

== ENCOUNTER 2024-11-27 14:26 | Outpatient (POV) | payer MEDICARE, SELFPAY ==
[2024-11-27 15:12] VITALS: BP 148/95; BP 151/99; PULSE 57; RESP 14; O2SAT 99; BMI 42.9
--- NOTE | 2024-11-27 15:27 | EXP.PAIN.SOA ---
[facility] Disclaimer: The information contained in this section may have been updated after the patient was seen, as this information can be updated by other users. Medical History Sleep apnea Hypothyroidism Fibromyalgia High blood pressure Gout GERD (gastroesophageal reflux disease) Surgical History History of carpal tunnel repair Hx of tonsillectomy H/O total hysterectomy Family History Other Cancer Diabetes Heart attack Hypertension No significant family history Stroke Social History Smoking Status: Never smoker second hand exposure: No alcohol intake: never substance use type: denies use current occupational status: other Travel in the last 8 weeks?: None household members: spouse housing: house caffeine: Yes PM Subjective & Objective Subjective Subjective:: Patient is a pleasant 68-year-old female who presents today for her 1 month medication refill. Today she rates her pain as 7 out of 10. She does states she still has her chronic low back pain as well as knee pain. She does state that she did do some more imaging and that the left knee is [id number] and that they think there is a possibility on the right knee that she has a fracture. Patient denies any other changes from her last appointment. Patient is currently managed with Percocet 7.5 mg 4 times a day. She denies any side effects or any changes to her pharmacy. Her Shabbir has been reviewed and is appropriate. Review of Systems: General: No recent weight changes, no fever, no sleep disturbances Respiratory: No cough, no shortness of air, no recurring pulmonary infections Cardiovascular/peripheral vascular: No chest pain, no palpitations, no edema, no shortness of breath Gastrointestinal: No new onset incontinence, normal bowel movements reported Genitourinary: No new onset incontinence Musculoskeletal: Low back pain, bilateral knee pain Psychiatric: [Normal mood/affect] Neurological: [Denies weakness in extremities], [denies balance issues] Pain at rest (0-10 scale): 7 Objective Objective:: Physical Exam: General: Alert and oriented x3, no acute distress, pleasant and cooperative Lungs: Respirations even and unlabored, symmetrical chest expansion Eyes: PERRL Musculoskeletal: Flexion and extension of lumbar [spine] somewhat guarded secondary to pain, [antalgic gait noted] Neurological: Speech clear, no gross sensory deficit Has patient had previous pain injection?: No Conservative treatment options previously tried: Prescription medications Length of treatment: Longer than 12 weeks Meds Home Medications and Allergies Home Medications ?Medication ?Instructions ?Recorded ?Confirmed ?Type allopurinol 100 mg tablet 100 mg PO BID gout 90 days ##180 10/05/17 11/27/24 History levothyroxine 75 mcg tablet 1 tab PO DAILY thyroid 90 days ##90 10/05/17 11/27/24 History promethazine 25 mg tablet 25 mg PO NEEDED PRN Nausea 45 10/05/17 11/27/24 History days ##180 propranolol 20 mg tablet 20 mg PO DAILY bp 90 days ##180 10/05/17 11/27/24 History aspirin 81 mg tablet,delayed 81 mg PO DAILY unknown 12/12/19 11/27/24 History release biotin 5,000 mcg disintegrating 5,000 mcg PO DAILY Supplement 12/12/19 11/27/24 History tablet fluticasone propionate 50 2 spray intranasal DAILY allergies 06/06/20 11/27/24 Rx mcg/actuation nasal 30 days #16 mL spray,suspension lisinopril 10 mg tablet 10 mg PO DAILY BLOOD PRESSURE 05/26/23 11/27/24 History semaglutide 14 mg tablet (Rybelsus) 14 mg PO DAILY 05/26/23 11/27/24 History cyclobenzaprine 10 mg tablet 10 mg PO TID muscle pain #90 tabs 08/20/23 11/27/24 Rx oxycodone-acetaminophen 7.5 mg-325 1 tab PO QID #120 tabs 10/27/24 11/27/24 Rx mg tablet (Percocet) New Prescriptions to Start Prescriptions: Allergies Allergy/AdvReac Type Severity Reaction Status Date / Time acetaminophen (From Allergy Unknown NA-NAUSEA/V Verified 10/28/23 13:03 TYLENOL-CODEINE #3) OMITING codeine (From Allergy Unknown NA-NAUSEA/V Verified 10/28/23 13:03 TYLENOL-CODEINE #3) OMITING erythromycin base Allergy Unknown NA-NAUSEA/V Verified 10/28/23 13:03 (ERYTHROMYCIN BASE) OMITING methadone (METHADONE) Allergy Unknown UNKNOWN Verified 10/28/23 13:03 morphine (MORPHINE) Allergy Unknown UNKNOWN Verified 10/28/23 13:03 Penicillins (PENICILLINS) Allergy Unknown NA-NAUSEA/V Verified 10/28/23 13:03 OMITING Sulfa (Sulfonamide Allergy Unknown NA-NAUSEA/V Verified 10/28/23 13:03 Antibiotics) (SULFA OMITING (SULFONAMIDE ANTIBIOTICS)) Assessment and Plan *Assessment and plan (1) Degenerative disc disease, cervical: Status: Acute Category: Medical Code(s): M50.30 - Other cervical disc degeneration, unspecified cervical region (2) Degenerative disc disease, lumbar: Status: Acute Category: Medical Code(s): M51.369 - Other intervertebral disc degeneration, lumbar region without mention of lumbar back pain or lower extremity pain Plan I will refill the patient's Percocet and send in a 1 month supply of this medication. Patient will return to clinic in 1 month for reevaluation of symptoms and plan of care. Risks and benefits of the medication have been explained in detail to the patient. The patient does understand the risk of dependence on the medication when given over a prolonged period. Patient has been advised of risks of oversedation with the prescribed medication. Narcan has been offered to the paitent in the event of oversedation. Patient has been advised that a family member should also be educated regarding administration of Narcan. The patient has been advised to consult with his/her primary care provider and pharmacist regarding drug-drug interaction of medications currently prescribed. Patient has been prescribed a controlled substance after being counseled on the medication, medication safety, and possible side effects. Opioid contract was reviewed and signed by the patient, and that they have agreed to all of the terms set forth by our compliance program. A UDS is needed to verify patient's compliance with our office pain contract. This is ordered based off specific treatments related to chronic pain with the potential to abuse certain medications. Patient has been instructed to contact the clinic with any concerns before the next appointment. Dr. Valderrama has reviewed this note and agrees with this plan of care. This note was dictated using voice recognition software and make contain errors or omissions.
== END 2024-11-27 23:59 | disposition home or self-care (01) ==
PROVIDERS: PCP Family Medicine; Visit Provider Nurse Practitioner Family
DX: M50.30 Other cervical disc degeneration, unspecified cervical region (principal); M51.369 Other intervertebral disc degeneration, lumbar region without mention of lumbar back pain or lower extremity pain
CPT/HCPCS: 99212; G0463

== ENCOUNTER 2024-12-28 14:01 | Outpatient (POV) | payer MEDICARE, SELFPAY ==
--- OUTSIDE RECORDS SUMMARY | 2006-02-24 20:00 | XMS_ITS | Continuity of Care Document ---
Author Organization [facility] Address [address] [place] [address] Phone Care Team Providers Care E Commerce Merchandising Coordinator Name Role Phone No Information Unavailable Unavailable Advance Directives Directive Yes / No Effective Date File Name No Information Encounters Encounter Description Practice Location Reason(s) For Visit Diagnoses Date Provider Providers Copied on Encounter [facility] , [address] [place], [address], [place] tel:[phone] [facility] No Information No Information Family History Family Member Type Diagnosis Age At Onset No Information Payers Payer name Insurance type Covered constitution party ID Authoriza tion(s) No Information Social History Type Description Quantity Date Captured Comments Sex Female Smoking Status No Information Chief Complaint And Reason For Visit No Information Reason For Referral Reason For Referral No Information History Of Present Illness Encounter Date Complaint History Of Prese nt Illness No Information Functional Status Date Functional Assessmen t No Information Instructions Date Instruction Additional Infor mation No Information Assessments Type Assessment Date No Information Patient Care Teams Name Effective Dates (start - stop) Status Members No Information
--- OUTSIDE RECORDS SUMMARY | 2019-01-27 16:00 | XMS_ITS | Encounter Summary ---
Author Organization [facility] [place] [address] Care Team Providers Care Social Service Coordinator Name Role Phone Clemente Bass DO, Viral Primary Care Provider [phone] Encounter Details Date Type Department Care Team (Latest Contact Info) Description 01/27/2019 4:00 PM EDT Hospital Encounter [facility] [address] [place] [address] Left without seen Social History [...] Date Recorded PHQ-2 Total Score 0 11/02/2024 [facility] - Occupational Stress Questionnaire Answer Date [...] documented as of this encounter Care Teams Social Service Coordinator Relationship Specialty Start Date End Date Jose Cornejo DO [address] [place] [id number] PCP - General Family Medicine 06/13/13 04/27/22 documented as of this encounter
--- OUTSIDE RECORDS SUMMARY | 2019-04-19 07:25 | XMS_ITS | Continuity of Care Document ---
Author Organization [facility] Address [address] [place] [address] Phone Care Team Providers Care Director Advanced Name Role Phone Rajesh Roca MD Unavailable Unavailabl e Allergies, Adverse Reactions, Alerts Substance Reaction Status Criticality TEGASEROD HYDROGEN MALEATE Active N o Information CEFUROXIME AXETIL Active No Informa tion Sulfa (Sulfonamide Antibiotics) Unknown Active No Information Penicillins Unknown Active No Information morphine Unknown Active No Information levofloxacin Unknown Active No Information erythromycin base Unknown Active No Informa tion codeine Unknown Active No Information Medications Medication Instructions Dosage Effective Dates (start - stop) Status Comments gabapentin 100 mg capsule take 3 capsule by oral route 3 times every day 300 MG - Active omeprazole 40 mg capsule,delayed release take 1 capsule by oral route every day before a meal 40 MG - Active Tirosint 75 mcg capsule take 1 capsule by oral route every day 75 MCG - Active lisinopril 20 mg-hydrochlorothiazid e 25 mg tablet take 1 tablet by oral route every day 1.00 tablet - Active meloxicam 15 mg tablet take 1 tablet by oral route every day 15 MG - Active allopurinol 100 mg tablet take 1 tablet by oral route 3 times every day 100 MG - Active amitriptyline 50 mg tablet take 1 tablet by oral route every day at bedtime 50 MG - Active aspirin 81 mg tablet,delayed release take 1 tablet by oral route every day 81 MG - Active lorazepam 2 mg tablet take 1 tablet by oral route 3 times every day as needed 2 MG - Active propranolol 20 mg tablet take 1 tablet by oral route 3 times every day 20 MG - Active sumatriptan 100 mg tablet take 1 tablet by oral route once with fluids as early as possible after the onset of a migraine attack;may repeat after 2 hours if headache returns, not to exceed 200mgin 24hrs 100 MG - Active promethazine 50 mg tablet take 1 tablet by oral route every 4 - 6 hours as needed 50 MG - Active Procedures Procedure Date Office/outpatient visit,est, mod 2017 Office/outpatient visit,est, mod 2015 X-ray exam lwr spine, min 4 views Office/outpatient visit,est, mod 2014 Inject, spine, lumbar/sacral Methylprednisolone 40 MG inj Office/outpatient visit,new, mod 2014 INJ PARAVERT F JNT L/S 1 LEV INJ PARAVERT F JNT L/S 2 LEV INJ PARAVERT F JNT L/S 3 LEV Methylprednisolone 40 MG inj Office/outpatient visit,est, mod 2014 Office/outpatient visit,new, mod 2014 X-ray exam lwr spine, min 4 views Advance Directives Directive Yes / No Effective Date File Name No Information Encounters Encounter Description Practice Location Reason(s) For Visit Diagnoses Date Provider Providers Copied on Encounter [facility] [address], [facility], tel:[phone] [facility] No Information 2 9 Abelino Mena. [address] [place] [address], [facility], . tel:[phone] Office/outpa tient visit,[facility], [facility] [address], [facility], tel:[phone] [facility] No Information 0 8 Abelino Mena. [address], [place], [facility], . tel:[phone] Office/outpa tient visit,est, mod [facility] [address] [place], [place], [facility], tel:[phone] [facility] No Information 6 Abelino Mena. [address] [place], [place], [facility], . tel:[phone] Office/outpa tient visit,est, [facility], [address] [place] [address], [facility], tel:[phone] [facility] No Information 5 Kruer Francis. [address] [place], [place], [facility], . tel:[phone] [facility], [address] [place] [address], [facility], tel:[phone] [facility] No Information 5 Kruer Francis. [address] [place], [place], [facility], . tel:[phone] Office/outpa tient visit,[facility], [address] [place] [address], [facility], tel:[phone] [facility] LumbagoLumbosa cral spondylosis 5 Kruer Francis. [address] [place], [place], [facility], . tel:[phone] Referring Provider: Rajesh Craft, [address] [place], [place], [facility]. tel:[phone] Office/outpa tient visit,[facility], [facility], [address] [place] [address], [facility], tel:[phone] [facility] No Information 5 Abelino Mena. [address], [place], [facility], [place]. tel:[phone] [facility], [address] [place], [place], [facility], tel:[phone] [facility] Inflammation of lumbosacral nerve 5 Abelino Mena. [address] [place], [address], . tel:[phone] Referring Provider: Jose Cornejo, [address] [place] [address], [place], [address] . tel:[phone] Family History Family Member Type Diagnosis Age At Onset Father Problem (finding) hypertension Close relative Problem (finding) hypertension Father Problem (finding) coronary arterioscleros is Father Problem (finding) Cardiovascular disease Payers Payer name Insurance type Covered constitution party ID Authoriza tion(s) No Information Social History Type Description Quantity Date Captured Comments Sex Female Smoking Status No Information Chief Complaint And Reason For Visit No Information Reason For Referral Reason For Referral No Information Plan Of Treatment Date Type Action Status Referral Ordered: MRI Lumbar Spine wo Contrast Spine Appointment date/timeframe: 08/13/2014 ordered History Of Present Illness Encounter Date Complaint History Of Prese nt Illness No Information Functional Status Date Functional Assessmen t No Information Instructions Date Instruction Additional Infor mation No Information Assessments Type Assessment Date No Information Patient Care Teams Name Effective Dates (start - stop) Status Members No Information
--- OUTSIDE RECORDS SUMMARY | 2024-11-02 15:20 | XMS_ITS | Encounter Summary ---
Author Organization 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 Name Role Phone Kory Rodriguez MD Unavailable Ar Vaca MD Primary Care Provider + Reason for Visit * Reason Comments Medicare Annual Wellness Otalgia Knee Pain both Encounter Details Date Type Department Care Team (Latest Contact Info) Description 11/02/2024 3:20 PM EDT Office Visit [facility] [address] [place] [address] Ar Vaca MD [address] [place] [address] Medicare annual wellness visit, subsequent (Primary Dx); Elevated uric acid in blood; Muscle pain; Acquired hypothyroidism; Hypertension; Erosive osteoarthritis of both hands; Nausea; Gastroesophageal reflux disease with esophagitis without hemorrhage; Prediabetes; Arthritis of right temporomandibular joint; Primary osteoarthritis of left knee Social History Tobacco Use Types Packs/Day Years Used Date Smoking Tobacco: Never Smokeless Tobacco: Never Tobacco Cessation:Counseling Given: Not Answered Alcohol Use Standard Drinks/Week Comments No 0 (1 standard drink = 0.6 oz pur e alcohol) Overall Financial Resource Strain (CARDIA) Answe r Date Recorded How hard is it for you to pa y for the very basics like food, housing, medical care, and heating? Not very hard 08/17/2024 PHQ-2 Answer Date Recorded PHQ-2 Total Score 0 11/02/2024 [facility] - Occupational Stress Questionnaire Answer Date Recorded [...] money to buy more. Never true 08/17/19 Within the past 12 months, t he [...] on file Sexual Orientation Not on file documented as of this encounter Last Filed Vital Signs Vital Sign Reading Time Taken Comments Blood Pressure 130/76 11/02/2024 3:20 PM EDT Pulse 82 11/02/2024 3:20 PM EDT Temperature - - Respiratory Rate - - Oxygen Saturation 97% 11/02/2024 3:2 0 PM EDT Inhaled Oxygen Concentration - - Weight 113.4 kg (250 lb) 11/02/2024 3:2 0 PM EDT pt refused scale Height 162.6 cm (5' 4 ) 11/02/2024 3:20 PM EDT Body Mass Index 42.91 11/02/2024 3:20 PM EDT documented in this encounter Functional Status * Cognitive and Functional Status Question Answer Date of Assessment Author Is the person deaf or does he/she have serious difficulty hearing? No 11/02/2024 3:21 PM EDT Terri Martinez RN Is the person blind or does he/she have serious difficulty seeing even when wearing glasses? No 11/02/2024 3:21 PM EDT Terri Martinez RN Does this person have seriou s difficulty walking or climbing stairs? No 11/02/2024 3:21 PM VERONICAT Terri Martinez RN Does this person have difficulty dressing or bathing? No 11/02/2024 3:21 PM EDT Terri Martinez RN * Is the person deaf or does he/she have serious difficulty hearing? Answer Date of Assessment Author No 11/02/2024 3:21 PM EDT Terri Martinez RN * Is the person blind or does he/she have serious difficulty seeing even when wearing glasses? Answer Date of Assessment Author No 11/02/2024 3:21 PM Terri Malone RN * Does this person have serious difficulty walking or climbing stairs? Answer Date of Assessment Author No 11/02/2024 3:21 PM VERONICAT Terri Martinez RN * Does this person have difficulty dressing or bathing? Answer Date of Assessment Author No 11/02/2024 3:21 PM VERONICAT Terri Martinez RN * Because of a physical, mental or emotional condition, does this person have difficulty doing errands alone such as visiting a doctor's office or shopping? Answer Date of Assessment Author No 11/02/2024 3:21 PM Terri Malone RN * PHQ-9 Total Score Answer Date of Assessment Author 0 11/02/2024 3:21 PM Terri Malone RN * Question Answer Date of Assessment Author Little interest or pleasure in doing things 0 11/02/2024 3:21 PM Terri Malone RN Feeling down, depressed, or hopeless 0 11/02/2024 3:21 PM Terri Malone RN PHQ-2 Total Score 0 11/02/2024 3:21 PM Terri Malone RN * Question Answer Date of Assessment Author Feeling Nervous, Anxious, or on Edge 0 11/02/2024 3:21 PM Terri Malone RN Not Being Able to Stop or Control Worrying 0 11/02/2024 3:21 PM EDT Terri Martinez RN Worrying too Much About Different Things 0 11/02/2024 3:21 PM EDT Terri Martinez RN Trouble Relaxing 0 11/02/2024 3:21 PM EDT Terri Bales RN Being so Restless That it is Hard to Sit Still 0 11/02/2024 3:21 PM EDT Terri Martniez RN Becoming Easily Annoyed or Irritable 0 11/02/2024 3:21 PM EDT Terri Martinez RN Feeling Afraid as if Something Awful Might Happen 0 11/02/2024 3:21 PM VERONICAT Terri Martinez RN WILLIE-7 Total Score 0 11/02/2024 3:21 PM VERONICAT Terri Martinez RN documented as of this encounter Mental [...] or making decisions? No 11/02/2024 3:21 PM VERONICAT Terri Martinez RN * Because of a physical, mental or emotional condition, does this person have serious difficulty concentrating, remembering or making decisions? Answer Entry Date Author No 11/02/2024 3:21 PM Terri Malone RN documented in this encounter Ordered Prescriptions Prescription Sig Dispense Quantity Refills Last Filled Start Date End Date LEVOthyroxine (SYNTHROID) 75 mcg Oral TabletIndications:Ac quired hypothyroidism Take 1 Tablet by mouth daily. 90 Tablet 1 11/02/2024 allopurinoL (ZYLOPRIM) 100 mg Oral TabletIndications:El evated uric acid in blood Take 1 Tablet by mouth 2 times daily. 180 Tablet 1 11/02/2024 omeprazole (PRILOSEC) 40 mg Oral Capsule, Delayed Release(E.C.)Indicat ions:Gastroesophagea l reflux disease with esophagitis without hemorrhage Take 1 Capsule by mouth daily. 90 Capsule 1 11/02/2024 5 semaglutide (RYBELSUS) 7 mg Oral TabletIndications:Pr ediabetes Take 1 Tablet by mouth daily. 90 Tablet 1 11/02/2024 5 promethazine (PHENERGAN) 25 mg Oral TabletIndications:Na usea Take 1 Tablet by mouth every 6 hours as needed. for nausea 100 Tablet 1 11/02/2024 5 hydroxychloroquine (PLAQUENIL) 200 mg Oral TabletIndications:Er osive osteoarthritis of both hands Take 1 Tablet by mouth daily. 90 Tablet 1 11/02/2024 5 cyclobenzaprine (FLEXERIL) 10 mg Oral TabletIndications:Mu scle pain Take 1 Tablet by mouth 3 times daily. 270 Tablet 1 11/02/2024 5 documented in this encounter Progress Notes * Ar Vaca MD - 11/02/2024 3:20 PM EDT Images from the original note were not included. Vitals: 11/02/24 1520 BP: 130/76 Pulse: 82 SpO2: 97% Weight: 250 lb (113.4 kg) Height: 5' 4 (1.626 m) SUBJECTIVE: Chief Complaint Patient presents with ??? Medicare Annual Wellness ??? Otalgia ??? Knee Pain both HPI: Medicare Wellness Assessment: Subsequent Annual Medicare Wellness Assessment. Risk Assessments: Fall Risk Assessment Has the patient had any fall with injury in the past year?: No Has the patient had 2 or more falls in the past year?: No Is the patient able to sit without assistance?: Yes Is the patient able to get up without assistance?: Yes Does the patient have a difficult time ambulating when first getting up?: No Does the patient have rugs or runners in the home?: No Does the patient have grab bars in the bathroom?: Yes Does the patient have stairs inside or outside of the home?: No (In Office Assessment Only): Is the patient able to ambulate without assistance/device and with a gait steady?: Yes (In Office Assessment Only): TUG test: Time patient going from sitting to standing, walk 10 feet, return to chair and sit. Record time. : (!) 13-20 seconds Functional Status Assessment Functional Level: self care Functional Mobility Assessment: independent w/o assist device Assessment of transportation needs: still drives most of the time Functional Activities of Daily Living Limitations: No issues Bladder: Do you have issues with your bladder, such as urgency or leaking urine?: Mild issues Does the patient report issues or concerns regarding hearing?: No Activities of Daily Living Assistive Device Assessment Assistive Devices: Cane Osteoporosis Screening Assessment Has the patient had a DEXA (Bone Density) scan in the past 2 years?: (!) No No results found for this or any previous visit. Abnormal Pains Assessment Excluding what you would consider normal aches and pains for your age and medical condition, do youhave any unusual or worrisome pains?: (!) Yes Opiate Screening Are you currently on opiate or narcotic medications?: No PHQ Depression Screening Results Little interest or pleasure in doing things: 0 Feeling down, depressed, or hopeless: 0 PHQ-2 Total Score: 0 PHQ-9 Total Score: 0 Advanced Directive Evaluation Does the patient have an Advance Directive?: (!) No Advance Care Planning Guide Given?: Yes (For Dementia Screening below can use either AD-8 or Mini Cog. Doesn't require both.) AD-8 Dementia Screening tool results Problems with judgement: 0 Less interest in hobbies/activities: 0 Repeats the same things over and over: 0 Trouble learning how to use a tool, appliance or gadget: 0 Forgets correct month or year: 0 Trouble handling complicated financial affairs: 0 Trouble remembering appointments: 0 Daily problems with thinking and/or memory: 0 Total AD8 score:: 0 Mini Cog Dementia Screening tool results Number of words immediately repeated back correctly.: 3 Clock Test: Please draw a clock face and draw in hands to show 10 minutes past eleven o'clock.: correct number placement, 1 pt; correct hand placement, 1 pt Number of Words Recalled: 3 Dementia: Negative Welcome to Medicare Vision Screening Eye Exam : Not applicable/required for Subsequent AWV, only required for Welcome to Medicare Visit Patient Instructions AWV findings and Plan of Care: Recommendations as part of the Personal Plan of Care based on risk screening assessments are: Fall Risk Assessment: Fall Risk Assessment: negative - re-assess in 1 year Functional Status/Social Determinates of Health: stable, no issues, re-assess in 1 year Depression Screening: negative - re-assess in 1 year Dementia Screening: negative - recommend re-assess in 1 year Vaccinations: patient declined all vaccines today Exercise/Activity: recommended continuing current Recommended follow up annually for Medicare Annual Wellness Visit. Good preventative health care is important in reducing morbidity and mortality. I recommend exercise regularly as tolerated focusing on strength and balance. I recommend a balanced diet focusing on fruits, veggies, and lean meats. I recommend avoiding having rugs, runners, or other loose trip hazards in the home as these increase fall risk. I recommend installing grab bars in the bathrooms close to toilets, in tubs, and in showers as these are common areas for falls when transitioning from wet surfaces to dry surfaces, or visa versa. This is also an area of the home that is high risk for falls at night. I encourage having an Advanced Directives. This is something we recommend you have on file at home,as well as something that we should have on file in our records. If we don't have a copy of your current Advanced Directive, please bring a copy to your next visit. If you have a power of psychologist developmental orsurrogate, we should also have a copy on file. I encourage candid discussion with your family on your wishes in the event that you are incapacitated and unable to participate in direct medical decision making. It is important to stay up to date on recommended vaccinations, please see the health maintenance topics due below and if we have not completed one of those topics today, please consider completing as part of your wellness plan this year. Below are other health maintenance topics that are recommended to be closed at your earliest opportunity. You may notice that some of these were addressed in the office today and will show as resolved in your MyChart account soon. Health Maintenance Due Topic Date Due ??? RSV or 60+ (1 - Risk 60-74 years 1-dose series) Never done ??? Hepatitis B Vaccine (2 of 2 - CpG 2-dose series) 02/10/2019 ??? Pneumococcal Vaccine 50+ (2 of 2 - PCV) 01/14/2020 ??? COVID-19 Vaccine ( season) Never done As part of today's visit the components of the Medicare wellness assessment were completed. These components included reviewing the information available in the risk screening questionnaire that was administered by ancillary staff either today or prior to today's visit (pre-visit planning) and recorded in the Medicare Wellness Assessment Flowsheet in the EMR. I have reviewed the data in regards to fall risk, activities of daily living/functional status, depression screening, dementia screening,and outstanding Health Maintenance topics and edited where necessary. The staff has reviewed and updated the past medical history, social history, family history, allergies, medications, and care team information during the standard rooming process. I have also reviewed this data as part of today'svisit. Below are the findings, recommendations, and Personal Plan of Care. The patient received a copy of their Personal Plan of Care including health maintenance topics thatare recommended to be completed and this can be noted in the after visit summary. The AVS is provided to the patient digitally through their MyChart account or with a paper copy if the patient doesn't have an active MyChart Account. A copy of today's progress note with recommendations below is alsoavailable electronically for patients with an active [employer] account per the Federal Cures Act. TheAVS also contains additional patient education if appropriate on topics common to wellness and their plan of care. History Reviewed: No results found. No results found for this visit on 11/02/24. Patient Active Problem List Diagnosis ??? Esophageal reflux ??? Hypertension ??? Unspecified hypothyroidism ??? Fibromyalgia ??? DJD ??? WILLIE (generalized anxiety disorder) ??? Morbid obesity with body mass index of 40.0-49.9 (HCC) ??? MICHAEL (obstructive sleep apnea) ??? Lipoma of left lower extremity ??? Personal history of colonic polyps ??? CKD stage G2/A2, GFR 60-89 and albumin creatinine ratio 30-299 mg/g ??? Erosive osteoarthritis of both hands ??? Morbid (severe) obesity due to excess calories (HCC) ??? Major depressive disorder, single episode, in partial remission ??? Prediabetes Past Medical History: Diagnosis Date ??? Angina ??? CAD (coronary artery disease) angina ??? Cancer (HCC) cervical ??? Chronic pain ??? CPAP (continuous positive airway pressure) dependence nightly ??? 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 Fibromyalgia ??? Gout ??? Graft right breast after breast reduction ??? Headache(784.0) ??? Heartburn ??? Hypertension ??? Lupus (systemic lupus erythematosus) (HCC) ??? Personal history of colonic polyps 03/23/2017 1 tubular adenoma - recommend repeat colonoscopy in 5 years ??? Skin graft to right leg ??? Thyroid disease ??? Unspecified sleep apnea cpap at home ??? Urinary tract infection Past Surgical History: Procedure Laterality Date ??? ABDOMEN SURGERY hysterectomy, appendectomy ??? APPENDECTOMY ??? BACK SURGERY L4, L5 fusion ??? BREAST SURGERY ??? CARDIAC CATHETERIZATION ??? CHOLECYSTECTOMY 1989 ??? COLONOSCOPY ??? COLONOSCOPY 03/23/2017 1 tubular adenoma - recommend repeat colonoscopy in 5 years ??? FOOT SURGERY right foot bone spur 1998 ??? HAND SURGERY carpel tunnel 1996 ??? HYSTERECTOMY ??? KNEE SURGERY left 2009 ??? SINUS SURGERY ??? SKIN BIOPSY ??? STOMACH SURGERY ??? TMJ ARTHROSCOPY 1987 ??? TONSILLECTOMY ??? UPPER GASTROINTESTINAL ENDOSCOPY ??? UPPER GASTROINTESTINAL ENDOSCOPY N/A 03/23/2017 ESOPHAGOGASTRODUODENOSCOPY with biopsy and balloon dilation; COLONOSCOPY with biopsy and polypectomy via biopsy forcep; Surgeon: Rajesh Gutierrez MD PHD; Location: [facility]; Service: Endoscopy ??? URETHRA SURGERY 03-22-2014 Dr. Douglass Allergies Allergen Reactions ??? Ceftin [Cefuroxime Axetil] ??? Codeine ??? Erythromycin ??? Hydroxychloroquine Itching ??? Levaquin [Levofloxacin] ??? Methadone ??? Morphine Itching ??? Penicillins ??? Sulfa (Sulfonamide Antibiotics) ??? Zelnorm [Tegaserod Hydrogen Maleate] Current Outpatient Medications on File Prior to Visit Medication Sig Dispense Refill ??? aspirin 81 mg tablet Take 81 mg by mouth daily. ??? biotin 5,000 mcg Oral Tablet, Rapid Dissolve Take 1 Tab by mouth daily. ??? ketotifen (ZADITOR) 0.025 % (0.035 %) Opht Drops Place 1 Drop into both eyes 2 times daily. 10 mL 5 ??? meclizine (ANTIVERT) 25 mg Oral Tablet Take 1 Tablet by mouth 3 times daily as needed for Dizziness. 30 Tablet 5 ??? multivit with min-folic acid 200 mcg Oral Tablet, Chewable Take 1 Tab by mouth daily. ??? oxyCODONE-acetaminophen (PERCOCET) 5-325 mg Oral Tablet Take by mouth every 6 hours as needed for Pain. ??? propranoloL (INDERAL) 20 mg Oral Tablet Take 1 Tablet by mouth 2 times daily. No current facility-administered medications on file prior to visit. Social History Socioeconomic History ??? Marital status: Spouse name: None ??? Number of children: None ??? Years of education: None ??? Highest education level: None Tobacco Use ??? Smoking status: Never ??? Smokeless tobacco: Never Vaping Use ??? Vaping status: Never Used Substance and Sexual Activity ??? Alcohol use: No ??? Drug use: No Social Drivers of Health Financial Resource Strain: Low Risk (08/17/2024) Overall Financial Resource Strain (CARDIA) ??? Difficulty of Paying Living Expenses: Not very hard Food Insecurity: No Food Insecurity (08/17/2024) Hunger Vital Sign ??? Worried About Running Out of Food in the Last Year: Never true ??? Ran Out of Food in the Last Year: Never true Transportation Needs: No Transportation Needs (08/17/2024) PRAPARE - Transportation ??? Lack of Transportation (Medical): No ??? Lack of Transportation (Non-Medical): No Physical Activity: Inactive (08/17/2024) Exercise Vital Sign ??? Days of Exercise per Week: 0 days ??? Minutes of Exercise per Session: 0 min Stress: No Stress Concern Present (08/17/2024) [facility] - Occupational Stress Questionnaire ??? Feeling of Stress : Not at all Received from [facility] Family and Community Support Received from [facility] Abuse Screen Received from [facility] Housing Stability Family History Problem Relation Age of Onset ??? Early Mother at 60 aneuyrsm ??? Heart Disease Mother ??? Miscarriages / Stillbirths Mother x4 ??? Vision Loss Mother ??? Cancer Father colon ??? Early Father cancer at 66 ??? Vision Loss Father ??? Colon Cancer Father ??? Depression Paternal Aunt ??? Arthritis Paternal Grandmother ??? Diabetes Paternal Grandmother ??? Heart Disease Paternal Grandmother ??? Stroke Paternal Grandmother ??? Vision Loss Paternal Grandmother ??? Cancer Paternal Grandfather colon ??? Colon Cancer Paternal Grandfather ??? Colon Cancer Paternal Uncle ??? Cirrhosis Neg Hx ??? Colon Polyps Neg Hx ??? Crohn's Disease Neg Hx ??? Liver Disease Neg Hx ??? Hearing Loss Neg Hx ??? Allergies Neg Hx ??? Migraines Neg Hx ??? Thyroid Disease Neg Hx ??? Bleeding Prob Neg Hx Immunization History Administered Date(s) Administered ??? Hepatitis B (Recombinant), Adjuvanted 01/13/2019 ??? Influenza High Dose 05/11/2024 ??? Influenza Vaccine Quadrivalent 04/11/2014, 05/01/2015, 04/06/2016, 05/17/2017, 05/11/2018 ??? Influenza Vaccine, Unspecified Formulation 04/29/2010, 05/15/2011, 03/25/2012, 04/26/2013 ??? Influenza Virus Vaccine Quadrivalant, Flublok 06/12/2019, 04/22/2020 ??? LAST MANUFACTURED 2010-Pneumococcal Conjugate 7 Valent 07/19/2008 ??? Pneumococcal Polysaccharide 23 Valent 01/13/2019 ??? Quadrivalent Influenza High Dose 04/15/2023 ??? Tdap 07/19/2008, 08/15/2024 ??? Zoster Recombinant 01/04/2023, 05/14/2023 Health Maintenance Topic Date Due ??? RSV or 60+ (1 - Risk 60-74 years 1-dose series) Never done ??? Hepatitis B Vaccine (2 of 2 - CpG 2-dose series) 02/10/2019 ??? Pneumococcal Vaccine 50+ (2 of 2 - PCV) 01/14/2020 ??? COVID-19 Vaccine ( - season) Never done ??? Breast Cancer Screening 06/16/2025 ??? Wellness Exam Medicare 11/03/2025 ??? Colon Cancer Screening 03/23/2027 ??? DTaP/TDaP/Td (3 - Td or Tdap) 08/15/2034 ??? Influenza Vaccine Completed ??? Bone Density Screening Completed ??? Zoster Completed ??? Hepatitis C Screening Completed ??? Meningococcal B Vaccine Aged Out Patient Care Team: Ar Vaca MD as PCP - General (Family Medicine) Kory Rodriguez MD as Consulting Physician (Internal Medicine-Nephrology) Additional issues addressed today: Thyroid Disease: Patient following up for hypothyroidism. she is compliant with current treatment. Active symptoms reported today are none. GERD: Following up for GERD. Requires medication for symptom control daily. Feels that symptoms areadequately controlled with current treatment. She does modify diet to avoid symptoms. Hypertension: Home reporting of hypertension was reviewed at time of visit. Karoline denies any episodes of dizziness, lightheadedness, presyncope, syncope, headache, or chest pain. Karoline does not report any new symptoms of possible hypertension sequelae. The patient reports that she is not having significant issues or side effects of current medications/treatments. Otalgia There is pain in both ears. This is a new problem. Associated symptoms include ear discharge and rhinorrhea. Pertinent negatives include no abdominal pain, coughing, diarrhea, headaches, neck pain, rash, sore throat or vomiting. Knee Pain The pain is present in the right knee and left knee. This is a chronic problem. Pertinent negativesinclude no numbness. Review of Systems Constitutional: Negative. Negative for activity change, appetite change, fatigue and unexpected weight change. HENT: Positive for ear discharge, ear pain and rhinorrhea. Negative for congestion, nosebleeds, sneezing, sore throat and trouble swallowing. Eyes: Negative. Negative for pain, discharge, itching and visual disturbance. Respiratory: Negative. Negative for cough, shortness of breath and wheezing. Cardiovascular: Negative. Negative for chest pain, palpitations and leg swelling. Gastrointestinal: Negative. Negative for abdominal distention, abdominal pain, constipation, diarrhea, nausea and vomiting. Endocrine: Negative. Negative for cold intolerance and heat intolerance. Genitourinary: Negative. Negative for dysuria, flank pain, frequency, hematuria and urgency. Musculoskeletal: Positive for arthralgias. Negative for back pain, gait problem, myalgias and neck pain. Skin: Negative. Negative for color change, rash and wound. Allergic/Immunologic: Negative. Negative for environmental allergies. Neurological: Negative. Negative for dizziness, tremors, syncope, weakness, numbness and headaches. Hematological: Negative. Psychiatric/Behavioral: Negative. Negative for agitation, decreased concentration, dysphoric mood and sleep disturbance. The patient is not nervous/anxious. OBJECTIVE: Physical Exam Constitutional: Appearance: Normal appearance. She is well-developed. HENT: Head: Normocephalic. Right Ear: Tympanic membrane, ear canal and external ear normal. Left Ear: Tympanic membrane, ear canal and external ear normal. Mouth/Throat: Mouth: Mucous membranes are moist. Pharynx: No oropharyngeal exudate or posterior oropharyngeal erythema. Eyes: General: Right eye: No discharge. Left eye: No discharge. Conjunctiva/sclera: Conjunctivae normal. Pupils: Pupils are equal, round, and reactive to light. Neck: Thyroid: No thyromegaly. Cardiovascular: Rate and Rhythm: Normal rate and regular rhythm. Heart sounds: Normal heart sounds. No murmur heard. Pulmonary: Effort: Pulmonary effort is normal. No respiratory distress. Breath sounds: Normal breath sounds. No wheezing or rales. Abdominal: General: Bowel sounds are normal. There is no distension. Palpations: Abdomen is soft. There is no mass. Tenderness: There is no abdominal tenderness. Musculoskeletal: Cervical back: Normal range of motion and neck supple. Lymphadenopathy: Cervical: No cervical adenopathy. Skin: Findings: No lesion or rash. Assessment Diagnoses and all orders for this visit: Medicare annual wellness visit, subsequent - COMPREHENSIVE METABOLIC PANEL; Future - CBC WITH DIFF; Future Elevated uric acid in blood - allopurinoL (ZYLOPRIM) 100 mg Oral Tablet; Take 1 Tablet by mouth 2 times daily. Dispense: 180 Tablet; Refill: 1 - URIC ACID; Future Muscle pain - cyclobenzaprine (FLEXERIL) 10 mg Oral Tablet; Take 1 Tablet by mouth 3 times daily. Dispense: 270Tablet; Refill: 1 Acquired hypothyroidism (Chronic) - LEVOthyroxine (SYNTHROID) 75 mcg Oral Tablet; Take 1 Tablet by mouth daily. Dispense: 90 Tablet; Refill: 1 - THYROID STIMULATING HORMONE; Future Hypertension (Chronic) Overview: On Propranolol & Zestoretic. Orders: - COMPREHENSIVE METABOLIC PANEL; Future Erosive osteoarthritis of both hands - hydroxychloroquine (PLAQUENIL) 200 mg Oral Tablet; Take 1 Tablet by mouth daily. Dispense: 90 Tablet; Refill: 1 Nausea - promethazine (PHENERGAN) 25 mg Oral Tablet; Take 1 Tablet by mouth every 6 hours as needed. for nausea Dispense: 100 Tablet; Refill: 1 Gastroesophageal reflux disease with esophagitis without hemorrhage - omeprazole (PRILOSEC) 40 mg Oral Capsule, Delayed Release(E.C.); Take 1 Capsule by mouth daily. Dispense: 90 Capsule; Refill: 1 Prediabetes - semaglutide (RYBELSUS) 7 mg Oral Tablet; Take 1 Tablet by mouth daily. Dispense: 90 Tablet; Refill: 1 - HEMOGLOBIN A1C; Future Arthritis of right temporomandibular joint - methylPREDNISolone acetate (DEPO-Medrol) injection 80 mg Primary osteoarthritis of left knee (Chronic) Overview: S/P spine surgeries & L TKR Orders: - methylPREDNISolone acetate (DEPO-Medrol) injection 80 mg Return in about 6 months (around 05/04/2025). documented in this encounter Plan of Treatment [...] maintain an ideal body weight General No Bradly Martíneza Karime EDGAR HEMOGLOBIN A1C < 7.0 Result Component 5.8( 1:33 PM EDT) No Sandy Chen LPN documented as of this encounter Results * URIC ACID (11/30/2024 1:33 PM EDT) Uric Acid 2.7 2.4 - 5.7 mg/dL 11/30/2024 8:56 PM EDT [facility] [employer] Blood VENOUS BLOOD / Unknown Venipuncture / Unknown 11/30/2024 1:33 PM EDT 11/30/2024 1:33 PM EDT Ar Vaca MD CHEMISTRY ORDERABLES Fin al Result Performing Organization Address [facility] [address]/[facility] de Phone Number [facility] [employer] [address] [place] [address] , [place] [address] * THYROID STIMULATING HORMONE (11/30/2024 1:33 PM EDT) Pathologist [facility] TSH 4.020 0.270 - 4.200 mcIU/mL 11/30/2024 8:56 PM EDT [facility] [employer] Blood VENOUS BLOOD / Unknown Venipuncture / Unknown 11/30/2024 1:33 PM EDT 11/30/2024 1:33 PM EDT Narrative [facility] [employer] - 11/30/2024 8:56 PM EDT Ingestion of gerald doses of biotin (>5 mg/day) taken within 8 hours of drawing blood sample can interfere with this immunoassay test. Ar Vaca MD CHEMISTRY ORDERABLES Fin al Result Performing Organization Address [facility] [address]/[facility] Co de Phone Number [facility] [employer] [address] , [place] [address] * (ABNORMAL) CBC WITH DIFF (11/30/2024 1:33 PM EDT) Pathologist [facility] WBC 12.1(H) 3.7 - 10.3 x10(3)/mcL 11/30/2024 7:46 PM EDT [facility] RBC 4.42 3.90 - 5.20 x10(6)/mcL 11/30/2024 7:46 PM EDT [facility] Hgb 12.6 11.2 - 15.7 g/dL 11/30/2024 7:46 PM EDT [facility] Hct 40.9 34.0 - 45.0 % 11/30/2024 7:46 PM EDT [facility] MCV 92.5 80.0 - 100.0 fL 11/30/2024 7:46 PM EDT [facility] MCH 28.5 26.0 - 34.0 pg 11/30/2024 7:46 PM EDT [facility] MCHC 30.8 30.7 - 35.5 g/dL 11/30/2024 7:46 PM EDT [facility] RDW 14.6 <=14.9 % 11/30/2024 7:46 PM EDT [facility] Platelet 296 155 - 369 x10(3)/mcL 11/30/2024 7:46 PM EDT [facility] MPV 11.2 8.8 - 12.5 fL 11/30/2024 7:46 PM EDT [facility] Neut Percent 67.7 % 11/30/2024 7:46 PM EDT [facility] Comment:Neutrophils equals s egs plus bands Imm Gran% 0.5 % 11/30/2024 7:46 PM EDT [facility] Comment:Automated count of m etamyelocytes, myelocytes and promyelocytes. Lymph Percent 23.6 % 11/30/2024 7:46 PM EDT [facility] [place] Percent 7.9 % 11/30/2024 7:46 PM EDT [facility] Eos Percent 0.1 % 11/30/2024 7:46 PM EDT [facility] Baso Percent 0.2 % 11/30/2024 7:46 PM EDT [facility] Neut # 8.2(H) 1.6 - 6.1 x10(3)/mcL 11/30/2024 7:46 PM EDT [facility], [facility] Comment:Neutrophils equals s egs plus bands IMMGRAN# 0.1 0.0 - 0.1 x10(3)/[facility] 11/30/2024 7:46 PM EDT [facility] Comment:Automated count of m etamyelocytes, myelocytes and promyelocytes. An absolute IG <0.1 is reported as 0.0. Lymph # 2.9 1.2 - 3.9 x10(3)/[facility] 11/30/2024 7:46 PM EDT [facility] [place] # 1.0(H) 0.3 - 0.9 x10(3)/[facility] 11/30/2024 7:46 PM EDT [facility] Eos# 0.0 0.0 - 0.5 x10(3)/[facility] 11/30/2024 7:46 PM EDT [facility] Baso # 0.0 0.0 - 0.1 x10(3)/[facility] 11/30/2024 7:46 PM EDT [facility] [employer], [facility] Blood VENOUS BLOOD / Unknown Venipuncture / Unknown 11/30/2024 1:33 PM EDT 11/30/2024 1:33 PM EDT Ar Vaca MD HEMATOLOGY ORDERABLES Fi nal Result [facility], [facility] [address] , [place] [address] * (ABNORMAL) COMPREHENSIVE METABOLIC PANEL (11/30/2024 1:33 PM EDT) Sodium 141 136 - 145 mmol/L 11/30/2024 8:56 PM EDT [facility] Potassium 5.0 3.5 - 5.0 mmol/L 11/30/2024 8:56 PM EDT [facility] Chloride 105 98 - 107 mmol/L 11/30/2024 8:56 PM EDT [facility] Total CO2 26 22 - 29 mmol/L 11/30/2024 8:56 PM EDT [facility] Anion Gap 10 7 - 16 mmol/L 11/30/2024 8:56 PM EDT [facility] Calcium 9.5 8.8 - 10.4 mg/dL 11/30/2024 8:56 PM EDT [facility] Glucose Lvl 103(H) 70 - 99 mg/dL 11/30/2024 8:56 PM EDT [facility] BUN 16 8 - 23 mg/dL 11/30/2024 8:56 PM EDT [facility] Creatinine 0.88 0.51 - 1.30 mg/dL 11/30/2024 8:56 PM EDT [facility] Albumin 3.9 3.2 - 4.6 gm/dL 11/30/2024 8:56 PM EDT [facility] Total Protein 6.7 6.4 - 8.3 gm/dL 11/30/2024 8:56 PM EDT [facility] Bili Total 0.3 0.2 - 1.3 mg/dL 11/30/2024 8:56 PM EDT [facility] ALT 10 <=41 U/L 11/30/2024 8:56 PM EDT [facility] AST 15 <=40 U/L 11/30/2024 8:56 PM EDT [facility] Alk Phos 81 36 - 123 U/L 11/30/2024 8:56 PM EDT [facility] eGFR (CKD-EPIcr 2020) 71 >=60 mL/min/1.7 3 m2 11/30/2024 8:56 PM EDT [facility] Comment:Estimated GFR was ca lculated using the CKD-EPIcr (2020) equation refit without race. The equation is recommended by the [employer] - [place] [employer] Nephrology Task Force. Blood VENOUS BLOOD / Unknown Venipuncture / Unknown 11/30/2024 1:33 PM EDT 11/30/2024 1:33 PM EDT us Ar Vaca MD CHEMISTRY ORDERABLES Fin al Result [facility], [facility] [address] , [place] [address] * (ABNORMAL) HEMOGLOBIN A1C (11/30/2024 1:33 PM EDT) Hgb A1C 5.8(H) 4.2 - 5.6 % 11/30/2024 8:08 PM EDT [employer] Avg Glucose 120 mg/dL 11/30/2024 8:08 PM EDT [employer] Blood VENOUS BLOOD / Unknown Venipuncture / Unknown 11/30/2024 1:33 PM EDT 11/30/2024 1:33 PM EDT Narrative [facility] [employer] [facility] - 11/30/2024 8:08 PM EDT REFERENCE RANGE: Normal: 4.0-5.6% Pre-diabetes: 5.7-6.4% Provisional diagnosis of diabetes: >6.4% Hgb F>10% and anything which shortens red cell survival, such as hemolytic anemia, or unstable hemoglobin variants such as HbSS, HbSC, or HbCC, will lower the HbA1c value associated with a given level of glycemic control. Ar Vaca MD CHEMISTRY ORDERABLES Fin al Result [facility] [employer] [address] , [address] [place] [id number] documented in this encounter Visit Diagnoses Diagnosis Medicare annual wellness visit, subsequent- Primary Routine general medical examination at a health care facility Elevated uric acid in blood Other abnormal blood chemistry Muscle pain Mylagia and myositis, unspecified Acquired hypothyroidism Unspecified hypothyroidism Hypertension Unspecified essential hypertension Erosive osteoarthritis of both hands Nausea Nausea alone Gastroesophageal reflux disease with esophagitis without hemorrhage Prediabetes Other abnormal glucose Arthritis of right temporomandibular joint Primary osteoarthritis of left knee Primary localized osteoarthrosis, lower leg documented in this encounter Administered Medications Inactive Administered Medications - up to 1 most recent administrations Medication Order MAR Action Action Date Dose Rate Site methylPREDNISolone acetate (DEPO-Medrol) injection 80 mg 80 mg, Intramuscular, ONCE, 1 dose, On Mar[place] 11/02/24 at 1545, Dx: 1. Arthritis of right temporomandibular joint 2. Primary osteoarthritis of left kneeIndications:Arthritis of right temporomandibular joint,Primary osteoarthritis of left knee Given 11/02/2024 4:40 PM EDT 80 mg Right Upper Outer Quadrant documented in this encounter Discontinued Medications Medication Sig Discontinue Reason Start Date End Da te semaglutide (RYBELSUS) 3 mg Oral TabletIndications:Hypergly cemia Take 1 Tablet by mouth daily. Cost of medication 08/15/2024 11/02/2024 allopurinoL (ZYLOPRIM) 100 mg Oral TabletIndications:Elevated uric acid in blood Take 1 Tablet by mouth 2 times daily. Reorder 06/22/2024 11/02/2024 cyclobenzaprine (FLEXERIL) 10 mg Oral TabletIndications:Muscle pain Take 1 Tablet by mouth 3 times daily. Reorder 06/22/2024 11/02/2024 LEVOthyroxine (SYNTHROID) 75 mcg Oral TabletIndications:Acquired hypothyroidism Take 1 Tablet by mouth daily. Reorder 08/15/2024 11/02/2024 hydroxychloroquine (PLAQUENIL) 200 mg Oral TabletIndications:Erosive osteoarthritis of both hands Take 1 Tablet by mouth daily. Reorder 08/23/2024 11/02/2024 promethazine (PHENERGAN) 25 mg Oral TabletIndications:Nausea Take 1 Tablet by mouth every 6 hours as needed. for nausea Reorder 08/23/2024 11/02/2024 semaglutide (RYBELSUS) 7 mg Oral Tablet Take 1 Tablet by mouth daily for 120 days. Reorder 09/14/2024 11/02/2024 omeprazole (PRILOSEC) 40 mg Oral Capsule, Delayed Release(E.C.)Indications:G astroesophageal reflux disease with esophagitis without hemorrhage Take 1 Capsule by mouth daily. Reorder 10/16/2024 11/02/2024 documented as of this encounter Additional Health Concerns Assessment Noted Time A fall risk assessment has been complete d for the patient 11/02/2024 3:19 PM EDT documented as of this encounter Care Teams Refrigerator Mover Relationship Specialty Start Date End Date Ar Vaca MD [address] [id number] PCP - General Family Medicine 04/28/22 Kory Rodriguez MD [address] [facility] [address] [place] [address] Consulting Physician Internal Medicine-Nephrology 10/03/20 documented as of this encounter
--- OUTSIDE RECORDS SUMMARY | 2024-11-30 13:20 | XMS_ITS | Encounter Summary ---
Author Organization [place] [address] Care Team Providers Care Cash Register Repairer Name Role Phone Kory Rodriguez MD Unavailable [phone] Ar Vaca MD Primary Care Provider + Reason for Referral * Medication Prior Authorization - Authorized Specialty Diagnoses / Procedures Referred By Contac t Referred To Contact Diagnoses Morbid obesity with body mass index of 40.0-49.9 (HCC) Ar Vaca MD [address] [place] [address] Phone: tel: fax: Referral ID Status Reason Start Date Expiration Date V isits Requested Visits Authorized [id number] Authorized 10/17/2024 12/04/2025 1 1 Reason for Visit * Reason Comments Oral Pain Urinary Frequency Encounter Details Date Type Department Care Team (Late st Contact Info) Description 11/30/2024 1:20 PM EDT Office Visit [facility] [address] [place] [address] Ar Vaca MD [address] [place] [address] Thrush (Primary Dx); Urinary frequency; Acute recurrent cystitis; Morbid obesity with body mass index of 40.0-49.9 (HCC) Social History Tobacco Use Types Packs/Day Years [...] Date Recorded PHQ-2 Total Score 0 11/02/2024 [facility] - Occupational Stress [...] Sign Reading Time Taken Comments Blood Pressure 134/82 11/30/2024 12:57 PM EDT Pulse 76 11/30/2024 12:57 PM EDT Temperature - - Respiratory Rate - - Oxygen Saturation 97% 11/30/2024 12:57 PM EDT Inhaled Oxygen Concentration - - Weight - - Height - - Body Mass Index - - documented in this encounter Functional Status * Is the person deaf or does he/she have serious difficulty hearing? Answer Date of Assessment Author No 11/02/2024 3:21 PM EDT Terri Martinez RN * Is the person blind or does he/she have serious difficulty seeing even when wearing glasses? Answer Date of Assessment Author No 11/02/2024 3:21 PM EDT Terri Martinez RN * Does this person have serious difficulty walking or climbing stairs? Answer Date of Assessment Author No 11/02/2024 3:21 PM EDT Terri Martinez RN * Does this person have difficulty dressing or bathing? Answer Date of Assessment Author No 11/02/2024 3:21 PM EDT Terri Martinez RN * Because of a physical, mental or emotional condition, does this person have difficulty doing errands alone such as visiting a doctor's office or shopping? Answer Date of Assessment Author No 11/02/2024 3:21 PM Terri Maolne RN documented as of this encounter Mental Status * Because of a physical, mental or emotional condition, does this person have serious difficulty concentrating, remembering or making decisions? Answer Entry Date Author No 11/02/2024 3:21 PM Terri Malone RN documented in this encounter Ordered Prescriptions Prescription Sig Dispense Quantity Refills Last Filled Start Date End Date semaglutide 0.25 mg or 0.5 mg (2 mg/3 mL) SubQ Pen InjectorIndication s:Morbid obesity with body mass index of 40.0-49.9 (HCC) Inject 0.25 mg under the skin once a week for 28 days, THEN 0.5 mg once a week for 14 days. 3 mL 11/30/2024 5 lidocaine 2 % MM SolutionIndication s:Thrush Take 5 mL by mouth every 2 hours as needed for Pain. 200 mL 11/30/2024 nitrofurantoin, macrocrystal-monoh ydrate, (MACROBID) 100 mg Oral CapsuleIndications :Acute recurrent cystitis Take 1 Capsule by mouth 2 times daily for 7 days. 14 Capsule 11/30/2024 5 nystatin (MYCOSTATIN) 100,000 unit/mL Oral SuspensionIndicati ons:Thrush Take 5 mL by mouth 4 times daily for 14 days. 280 mL 11/30/2024 5 documented in this encounter Progress Notes * Ar Vaca MD - 11/30/2024 1:20 PM EDT Vitals: 11/30/24 1257 BP: 134/82 Pulse: 76 SpO2: 97% SUBJECTIVE: Chief Complaint Patient presents with ??? Oral Pain ??? Urinary Frequency HPI: Oral pain Oral Pain The incident occurred more than 2 days ago. Pertinent negatives include no chest pain, no nausea and no cough. Urinary Frequency This is a new problem. The current episode started in the past 7 days. The problem has been gradually worsening. Associated symptoms include frequency. Pertinent negatives include no chills, nausea or urgency. Review of Systems Constitutional: Negative for activity change, chills, fatigue and fever. HENT: Positive for mouth sores. Negative for congestion, ear discharge, ear pain, postnasal drip, rhinorrhea, sinus pressure and sneezing. Eyes: Negative for discharge and itching. Respiratory: Negative for cough, chest tightness, shortness of breath and wheezing. Cardiovascular: Negative for chest pain. Gastrointestinal: Negative for diarrhea and nausea. Genitourinary: Positive for frequency. Negative for dysuria, urgency and vaginal discharge. Skin: Negative for rash. OBJECTIVE: Physical Exam Constitutional: General: She is not in acute distress. Appearance: She is well-developed. She is not diaphoretic. HENT: Head: Normocephalic and atraumatic. Right Ear: Tympanic membrane, ear canal and external ear normal. Left Ear: Tympanic membrane, ear canal and external ear normal. Nose: Nose normal. Mouth/Throat: Pharynx: No oropharyngeal exudate. Comments: White patches Eyes: General: Right eye: No discharge. Left eye: No discharge. Conjunctiva/sclera: Conjunctivae normal. Pupils: Pupils are equal, round, and reactive to light. Neck: Thyroid: No thyromegaly. Cardiovascular: Rate and Rhythm: Normal rate and regular rhythm. Heart sounds: Normal heart sounds. No murmur heard. No friction rub. No gallop. Pulmonary: Effort: Pulmonary effort is normal. No respiratory distress. Breath sounds: Normal breath sounds. No wheezing or rales. Abdominal: General: Bowel sounds are normal. There is no distension. Palpations: Abdomen is soft. There is no mass. Tenderness: There is no abdominal tenderness. Musculoskeletal: Cervical back: Normal range of motion and neck supple. Lymphadenopathy: Cervical: No cervical adenopathy. Skin: General: Skin is warm and dry. Findings: No rash. Neurological: Mental Status: She is alert and oriented to person, place, and time. Cranial Nerves: No cranial nerve deficit. Coordination: Coordination normal. Psychiatric: Behavior: Behavior normal. Thought Content: Thought content normal. Results for orders placed or performed in visit on 11/30/24 SE[facility] URINALYSIS POC Result Value Ref Range UA Color POC Yellow Color UA Appear POC Clear Clear UA Gluc POC Negative Negative mg/dL UA Bili POC Negative Negative UA Ketones POC Negative Negative mg/dL UA SG POC 1.015 1.001 - 1.035 no units UA Blood POC Trace-Intact (A) Negative UA pH POC 6.0 5.0 - 8.0 pH UA Protein POC Negative Negative mg/dL UA Urobilinogen POC 0.2 0.2, 1.0 UA Nitrite POC Negative Negative UA Leuk Est POC Small (A) Negative Assessment Diagnoses and all orders for this visit: Thrush - nystatin (MYCOSTATIN) 100,000 unit/mL Oral Suspension; Take 5 mL by mouth 4 times daily for 14 days. Dispense: 280 mL; Refill: 0 - lidocaine 2 % MM Solution; Take 5 mL by mouth every 2 hours as needed for Pain. Dispense: 200 mL;Refill: 0 Urinary frequency - URINE CULTURE (NO STAIN); Future Acute recurrent cystitis - SEP URINALYSIS POC - nitrofurantoin, macrocrystal-monohydrate, (MACROBID) 100 mg Oral Capsule; Take 1 Capsule by mouth2 times daily for 7 days. Dispense: 14 Capsule; Refill: 0 Morbid obesity with body mass index of 40.0-49.9 (HCC) (Chronic) Overview: complicates all aspects of medical care & rehab from acute illness. Orders: - semaglutide 0.25 mg or 0.5 mg (2 mg/3 mL) SubQ Pen Injector; Inject 0.25 mg under the skin once aweek for 28 days, THEN 0.5 mg once a week for 14 days. Dispense: 3 mL; Refill: 0 No follow-ups on file. documented in this encounter Plan of Treatment [...] Chen LPN documented as of this encounter Procedures Procedure Name Priority Date/Time Associated Diagnosis Comments SEP URINALYSIS POC Routine 11/30/2024 1: 05 PM EDT Acute recurrent cystitis URINE CULTURE (NO STAIN) Routine 11/30/2024 1:03 PM EDT Urinary frequency documented in this encounter Results * (ABNORMAL) SEP URINALYSIS POC (11/30/2024 1:05 PM EDT) UA Color POC Yellow Color 11/30/2024 1:08 PM EDT [facility] UA Appear POC Clear Clear 11/30/2024 1:08 PM EDT [facility] [place] UA Gluc POC Negative Negative mg/dL 11/30/2024 1:08 PM EDT [facility] [place] UA Bili POC Negative Negative 11/30/2024 1:08 PM EDT [facility] [place] UA Ketones POC Negative Negative mg/dL 11/30/2024 1:08 PM EDT [facility] UA SG POC 1.015 1.001 - 1.035 no units 11/30/2024 1:08 PM EDT [facility] [place] UA Blood POC Trace-Intac t(A) Negative 11/30/2024 1:08 PM EDT [facility] [place] UA pH POC 6.0 5.0 - 8.0 pH 11/30/2024 1:08 PM EDT [facility] [place] UA Protein POC Negative Negative mg/dL 11/30/2024 1:08 PM EDT [facility] [place] UA Urobilinogen POC 0.2 0.2, 1.0 11/30/2024 1:08 PM EDT [facility] [place] UA Nitrite POC Negative Negative 11/30/2024 1:08 PM EDT [facility] [place] UA Leuk Est POC Small(A) Negative 1:08 PM EDT [facility] [place] Urine STRUCTURE OF URINARY TRACT PROPER / Unknown 11/30/2024 1:05 PM EDT 11/30/2024 1:08 PM EDT Ar Vaca MD POINT OF CARE TEST ORDER BUFFY Final Result Performing Organization Address [facility]/ZIP Co de Phone Number [place] [address] [place] [address] * URINE CULTURE (NO STAIN) (11/30/2024 1:03 PM EDT) Culture Multiple bacterial species isolated from urine consistent with urogenital commensal organisms. 12/02/2024 7:23 AM EDT [facility] Urine STRUCTURE OF URINARY TRACT PROPER / Unknown 11/30/2024 1:03 PM EDT 11/30/2024 1:03 PM EDT Ar Vaca MD MICROBIOLOGY - GENERAL O RDERABLES Final Result [facility] [address] [facility] , [place] [address] documented in this encounter Visit Diagnoses Diagnosis Thrush- Primary Candidiasis of mouth Urinary frequency Acute recurrent cystitis Acute cystitis Morbid obesity with body mass index of 40.0-49.9 (HCC) documented in this encounter Discontinued Medications Medication Sig Discontinue Reason Start Date End Da te semaglutide (RYBELSUS) 7 mg Oral TabletIndications:Predia betes Take 1 Tablet by mouth daily. Cancelled by 11/02/2024 11/30/2024 documented as of this encounter Additional Health Concerns Assessment Noted Time A fall risk assessment has been complete d for the patient 11/02/2024 3:19 PM EDT documented as of this encounter Care Teams Cash Register Repairer Relationship Specialty Start Date End Date Ar Vaca MD [address] [place] [address] PCP - General Family Medicine 04/28/22 Kory Rodriguez MD [address] [facility] [address] [place] [address] Consulting Physician Internal Medicine-Nephrology 10/03/20 documented as of this encounter
--- OUTSIDE RECORDS SUMMARY | 2024-11-30 13:32 | XMS_ITS | Encounter Summary ---
Author Organization [place] [address] Care Team Providers Care Physical Therapy Aid Name Role Phone Kory Rodriguez MD Unavailable [phone] Ar Vaca MD Primary Care Provider + Encounter Details Date Type Department Care Team (Latest Contact Info) Description 11/30/2024 1:32 PM EDT - 11/30/2024 11:59 PM EDT Hospital Encounter [facility] [place] [id number] Prediabetes; Medicare annual wellness visit, subsequent; Hypertension; [...] Date Recorded PHQ-2 Total Score 0 11/02/2024 [facility] [place] of Occupat ional Health - Occupational Stress [...] as needed for Pain. 200 mL 11/30/2024 meclizine (ANTIVERT) 25 mg Oral TabletIndications:Di zziness Take 1 Tablet by mouth 3 times daily as needed for Dizziness. 30 Tablet 5 2023 multivit with min-folic acid 200 mcg Oral [...] 2 times daily. 90 Tablet 1 11/28/2024 semaglutide 0.25 mg or 0.5 mg (2 mg/3 mL) SubQ Pen InjectorIndications: Morbid obesity with body mass index of 40.0-49.9 (HCC) Inject 0.25 mg under the skin once a week for 28 days, THEN 0.5 mg once a week for 14 days. 3 mL 11/30/2024 nystatin (MYCOSTATIN) 100,000 unit/mL Oral SuspensionIndication s:Thrush Take 5 mL by mouth 4 times daily for 14 days. 280 mL 11/30/2024 promethazine (PHENERGAN) 25 mg Oral TabletIndications:Na usea Take 1 Tablet by mouth every 6 hours as needed. for nausea 100 Tablet 1 11/02/2024 5 documented as of this encounter Discharge Disposition [...] * URIC ACID (11/30/2024 1:33 PM EDT) Pathologist [facility] [place] Uric Acid 2.7 2.4 - 5.7 mg/dL 11/30/2024 8:56 PM EDT [facility]REF[facility]ED [facility] Blood VENOUS BLOOD / Unknown Venipuncture / Unknown 11/30/2024 1:33 PM EDT 11/30/2024 1:33 PM EDT Ar Vaca MD CHEMISTRY ORDERABLES Fin al Result Performing Organization Address [facility] Co de Phone Number [facility] [address] [facility] , [place] [address] * THYROID STIMULATING HORMONE (11/30/2024 1:33 PM EDT) Pathologist [facility] [place] TSH 4.020 0.270 - 4.200 mcIU/mL 11/30/2024 8:56 PM EDT [facility]REF[facility]ED [facility] Blood VENOUS BLOOD / Unknown Venipuncture / Unknown 11/30/2024 1:33 PM EDT 11/30/2024 1:33 PM EDT Narrative [facility]REF[facility] - 11/30/2024 8:56 PM EDT Ingestion of gerald doses of biotin (>5 mg/day) taken within 8 hours of drawing blood sample can interfere with this immunoassay test. Ar Vaca MD CHEMISTRY ORDERABLES Fin al Result Performing Organization Address [facility] Co de Phone Number [facility] [address] [facility] , [place] [address] * (ABNORMAL) CBC WITH DIFF (11/30/2024 1:33 PM EDT) Pathologist [facility] [place] WBC 12.1(H) 3.7 - 10.3 x10(3)/mcL 11/30/2024 7:46 PM EDT [facility] RBC 4.42 3.90 - 5.20 x10(6)/mcL 11/30/2024 7:46 PM EDT [facility] [employer], [facility] Hgb 12.6 11.2 - 15.7 g/dL 11/30/2024 7:46 PM EDT [facility] Hct 40.9 34.0 - 45.0 % 11/30/2024 7:46 PM EDT [facility], [facility] MCV 92.5 80.0 - 100.0 fL 11/30/2024 7:46 PM EDT [facility] MCH 28.5 26.0 - 34.0 pg 11/30/2024 7:46 PM EDT [facility] MCHC 30.8 30.7 - 35.5 g/dL 11/30/2024 7:46 PM EDT [facility] RDW 14.6 <=14.9 % 11/30/2024 7:46 PM EDT [facility] Platelet 296 155 - 369 x10(3)/mcL 11/30/2024 7:46 PM EDT [facility] MPV 11.2 8.8 - 12.5 fL 11/30/2024 7:46 PM EDT [facility] Neut Percent 67.7 % 11/30/2024 7:46 PM EDT [facility] Comment:Neutrophils equals s egs plus bands Imm Gran% 0.5 % 11/30/2024 7:46 PM EDT [facility] Comment:Automated count of m etamyelocytes, myelocytes and promyelocytes. Lymph Percent 23.6 % 11/30/2024 7:46 PM EDT [facility] [place] Percent 7.9 % 11/30/2024 7:46 PM EDT [facility] Eos Percent 0.1 % 11/30/2024 7:46 PM EDT [facility] Baso Percent 0.2 % 11/30/2024 7:46 PM EDT [facility] Neut # 8.2(H) 1.6 - 6.1 x10(3)/mcL 11/30/2024 7:46 PM EDT [facility] Comment:Neutrophils equals s egs plus bands IMMGRAN# 0.1 0.0 - 0.1 x10(3)/mcL 11/30/2024 7:46 PM EDT [facility], [facility] Comment:Automated count of m etamyelocytes, myelocytes and promyelocytes. An absolute IG <0.1 is reported as 0.0. Lymph # 2.9 1.2 - 3.9 x10(3)/mcL 11/30/2024 7:46 PM EDT [facility] [place] # 1.0(H) 0.3 - 0.9 x10(3)/mcL 11/30/2024 [...] ORDERABLES Fi nal Result [facility], [facility] [address] [facility] , [place] [address] * (ABNORMAL) COMPREHENSIVE METABOLIC PANEL (11/30/2024 1:33 [...] 11/30/2024 8:56 PM EDT [facility] Creatinine 0.88 0.51 - 1.30 mg/dL 11/30/2024 8:56 PM EDT [facility], [facility] Albumin 3.9 3.2 - 4.6 gm/dL 11/30/2024 8:56 PM EDT [facility], [facility] Total Protein 6.7 6.4 - 8.3 gm/dL 11/30/2024 8:56 PM EDT [facility], [facility] Bili Total 0.3 0.2 - 1.3 mg/dL 11/30/2024 8:56 PM EDT [facility] ALT 10 <=41 U/L 11/30/2024 8:56 PM EDT [facility], [facility] AST 15 <=40 U/L 11/30/2024 8:56 PM EDT [facility] LAB [facility], [facility] Alk Phos 81 36 - 123 U/L 11/30/2024 8:56 PM EDT [facility], [facility] eGFR (CKD-EPIcr 2020) 71 >=60 mL/min/1.7 3 m2 11/30/2024 8:56 PM EDT [facility], [facility] Comment:Estimated GFR was ca lculated using the CKD-EPIcr (2020) equation refit without race. The equation is recommended by the National Kidney Foundation - [place] [employer] of Nephrology Task Force. Blood VENOUS BLOOD / Unknown Venipuncture / Unknown 11/30/2024 1:33 PM EDT 11/30/2024 1:33 PM EDT Ar Vaca MD CHEMISTRY ORDERABLES Fin al Result [facility] [employer], [facility] [address] [facility] , [address] [place] [phone] * (ABNORMAL) HEMOGLOBIN A1C (11/30/2024 1:33 PM EDT) Hgb A1C 5.8(H) 4.2 - 5.6 % 11/30/2024 8:08 PM EDT [facility] [employer], [facility] Est. Avg Glucose 120 mg/dL 11/30/2024 8:08 PM EDT [facility] [email or web address] Blood VENOUS BLOOD / Unknown Venipuncture / Unknown 11/30/2024 1:33 PM EDT 11/30/2024 1:33 PM EDT Narrative PREFERRED [email or web address] - 11/30/2024 8:08 PM EDT REFERENCE RANGE: Normal: 4.0-5.6% Pre-diabetes: 5.7-6.4% Provisional diagnosis of diabetes: >6.4% Hgb F>10% and anything which shortens red cell survival, such as hemolytic anemia, or unstable hemoglobin variants such as HbSS, HbSC, or HbCC, will lower the HbA1c value associated with a given level of glycemic control. Ar Vaca MD CHEMISTRY ORDERABLES Fin al Result PREFERRED [email or web address] [address] [facility] , [address] [place], [place] [id number] documented in this encounter Visit Diagnoses Diagnosis Prediabetes Other abnormal glucose Medicare annual wellness visit, subsequent Routine general medical examination at a [facility] care facility Hypertension Unspecified essential hypertension Acquired hypothyroidism Unspecified hypothyroidism Elevated uric acid in blood Other abnormal blood chemistry documented in this encounter Additional Health Concerns Assessment Noted Time A fall risk assessment has been complete d for the patient 11/02/2024 3:19 PM EDT documented as of this encounter Care Teams Physical Therapy Aid Relationship Specialty Start Date End Date Ar Vaca MD [address] [place] [address] PCP - General Family Medicine 04/28/22 Kory Rodriguez MD [address] [place] [address] Consulting Physician Internal Medicine-Nephrology 10/03/20 documented as of this encounter
--- OUTSIDE RECORDS SUMMARY | 2024-12-06 13:30 | XMS_ITS | Encounter Summary ---
Author Organization [place] [address] Care Team Providers Care Conveyor Belt Installer Name Role Phone Kory Rodriguez MD Unavailable [phone] Ar Vaca MD Primary Care Provider + Reason for Visit * Reason Comments Rash Encounter Details Date Type Department Care Team (Late st Contact Info) Description 12/06/2024 1:30 PM EDT Office Visit [facility] [place] [address] [place] [address] Karen Gonzalez MD [address] [place] [address] Rash (Primary Dx) Social History Tobacco Use Types Packs/Day Years Used Date Smoking Tobacco: Never Smokeless Tobacco: Never Tobacco Cessation:Counseling Given: Not Answered Alcohol Use Standard Drinks/Week Comments No 0 (1 standard drink = 0.6 oz pur e alcohol) Overall Financial Resource Strain (CARDI) Answe r Date Recorded How hard is it for you to pa y for the very basics like food, housing, medical care, and heating? Not very hard 08/17/2024 PHQ-2 Answer Date Recorded PHQ-2 Total Score 0 11/02/2024 [facility] [place] of Occupat ional Health - Occupational Stress [...] documented as of this encounter Care Teams Conveyor Belt Installer Relationship Specialty Start Date End Date Ar Vaca MD [address] [place] [id number] PCP - General Family Medicine 04/28/22 Kory Rodriguez MD [address] [phone] Consulting Physician Internal Medicine-Nephrology 10/03/20 documented as of this encounter
--- OUTSIDE RECORDS SUMMARY | 2024-12-07 12:00 | XMS_ITS | Encounter Summary ---
Author Organization [place] [place] [address] Care Team Providers Care Adviser Sales Name Role Phone Kory Rodriguez MD Unavailable [phone] Ar Vaca MD Primary Care Provider + Reason for Visit * Reason Comments Care Management - Face To Face Care Transition Encounter Details Date Type Department Care Team (Latest Contact Info) Description 12/07/2024 12:00 PM EDT Clinical Support [address] [address] Darling Guerra, RN Prediabetes (Primary [...] Date Recorded PHQ-2 Total Score 0 11/02/2024 [facility] [place] of Occupat ional Health - Occupational [...] Face Concerns: 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 Is now switching to Ozempic. Orders updated to the patient assistance program, but patient wanted a sample to get her started Office Forest Worker (OCC) reviewed administration education with patient Patient [...] to correct dose using the turning dose field adjuster at the back of the pen [...] by patient. Goals: One-time assessment Next Steps: Forest Worker contact information given / reviewed Reviewed when to call Primary Care Provider (PCP) office, urgent care, or 911 Patient declined to schedule follow up with office hospice care consultant during this visit. Patient advised to follow up during next Primary Care Provider(PCP) visit. Forest Worker will not follow at this time. Notes: [...] documented as of this encounter Care Teams Adviser Sales Relationship Specialty Start Date End Date Ar Vaca MD [address] [place] [place] [address] PCP - General Family Medicine 04/28/22 Kory Rodriguez MD [address] [phone] Consulting Physician Internal Medicine-Nephrology 10/03/20 documented as of this encounter
--- OUTSIDE RECORDS SUMMARY | 2024-12-19 15:00 | XMS_ITS | Encounter Summary ---
Author Organization [place] [address] Care Team Providers Care Hospice Physician Name Role Phone Kory Rodriguez MD Unavailable [phone] Ar Vaca MD Primary Care Provider + Reason for Visit * Reason Comments Rash Encounter Details Date Type Department Care Team (Late st Contact Info) Description 12/19/2024 3:00 PM EDT Office Visit [facility] [place] [address] [place] [address] Ar Vaca MD [address] [place] [address] Dermatitis (Primary Dx); Systemic lupus [...] Date Recorded PHQ-2 Total Score 0 11/02/2024 [facility] [place] of Occupat ional Health - Occupational Stress [...] documented as of this encounter Care Teams Hospice Physician Relationship Specialty Start Date End Date Ar Vaca MD [address] [place], [place] [address] PCP - General Family Medicine 04/28/22 Kory Rodriguez MD [address] [facility] [address] [place] [phone] Consulting Physician Internal Medicine-Nephrology 10/03/20 documented as of this encounter
[2024-12-28 14:36] VITALS: BP 105/71; PULSE 75; RESP 16; O2SAT 98; BMI 42.9
--- NOTE | 2024-12-28 14:53 | EXP.PAIN.SOA ---
[facility] Disclaimer: The information contained in this section may have been updated after the patient was seen, as this information can be updated by other users. Medical History Sleep apnea Hypothyroidism Fibromyalgia High blood pressure Gout GERD (gastroesophageal reflux disease) Surgical History History of carpal tunnel repair Hx of tonsillectomy H/O total hysterectomy Family History Other Cancer Diabetes Heart attack Hypertension No significant family history Stroke Social History Smoking Status: Never smoker second hand exposure: No alcohol intake: never substance use type: denies use current occupational status: other Travel in the last 8 weeks?: None household members: spouse housing: house caffeine: Yes PM Subjective & Objective Subjective Subjective:: Patient is a pleasant 69-year-old female who presents today for medication refill and follow-up. Patient does state today her pain is a 7 out of 10. Patient states from her last visit she ended up having a breakout of her lupus on her upper arms and is still having issues with this. Patient does state that she did end up going to her primary care however denies seeing any recent specialist for the lupus. Patient is asking if there is anything we can do additionally for this. Patient is currently prescribed Percocet 7.5 mg 4 times a day. She denies any side effects. Her Shabbir has been reviewed and is appropriate. Review of Systems: General: No recent weight changes, no fever, no sleep disturbances Respiratory: No cough, no shortness of air, no recurring pulmonary infections Cardiovascular/peripheral vascular: No chest pain, no palpitations, no edema, no shortness of breath Gastrointestinal: No new onset incontinence, normal bowel movements reported Genitourinary: No new onset incontinence Musculoskeletal: Low back pain, upper arm rash Psychiatric: [Normal mood/affect] Neurological: [Denies weakness in extremities], [denies balance issues] Pain at rest (0-10 scale): 7 Objective Objective:: Physical Exam: General: Alert and oriented x3, no acute distress, pleasant and cooperative Lungs: Respirations even and unlabored, symmetrical chest expansion Eyes: PERRL Musculoskeletal: Flexion and extension of lumbar [spine] somewhat guarded secondary to pain, [antalgic gait noted] Neurological: Speech clear, no gross sensory deficit Has patient had previous pain injection?: No Conservative treatment options previously tried: Home exercise plan Length of treatment: Longer than 12 weeks Meds Home Medications and Allergies Home Medications ?Medication ?Instructions ?Recorded ?Confirmed ?Type allopurinol 100 mg tablet 100 mg PO BID gout 90 days ##180 10/05/17 12/28/24 History levothyroxine 75 mcg tablet 1 tab PO DAILY thyroid 90 days ##90 10/05/17 12/28/24 History promethazine 25 mg tablet 25 mg PO NEEDED PRN Nausea 45 10/05/17 12/28/24 History days ##180 propranolol 20 mg tablet 20 mg PO DAILY bp 90 days ##180 10/05/17 12/28/24 History aspirin 81 mg tablet,delayed 81 mg PO DAILY unknown 12/12/19 12/28/24 History release biotin 5,000 mcg disintegrating 5,000 mcg PO DAILY Supplement 12/12/19 12/28/24 History tablet fluticasone propionate 50 2 spray intranasal DAILY allergies 06/06/20 12/28/24 Rx mcg/actuation nasal 30 days #16 mL spray,suspension lisinopril 10 mg tablet 10 mg PO DAILY BLOOD PRESSURE 05/26/23 12/28/24 History semaglutide 14 mg tablet (Rybelsus) 14 mg PO DAILY 05/26/23 12/28/24 History cyclobenzaprine 10 mg tablet 10 mg PO TID muscle pain #90 tabs 08/20/23 12/28/24 Rx oxycodone-acetaminophen 7.5 mg-325 1 tab PO QID #120 tabs 11/27/24 12/28/24 Rx mg tablet (Percocet) New Prescriptions to Start Prescriptions: Allergies Allergy/AdvReac Type Severity Reaction Status Date / Time acetaminophen (From Allergy Unknown NA-NAUSEA/V Verified 10/28/23 13:03 TYLENOL-CODEINE #3) OMITING codeine (From Allergy Unknown NA-NAUSEA/V Verified 10/28/23 13:03 TYLENOL-CODEINE #3) OMITING erythromycin base Allergy Unknown NA-NAUSEA/V Verified 10/28/23 13:03 (ERYTHROMYCIN BASE) OMITING methadone (METHADONE) Allergy Unknown UNKNOWN Verified 10/28/23 13:03 morphine (MORPHINE) Allergy Unknown UNKNOWN Verified 10/28/23 13:03 Penicillins (PENICILLINS) Allergy Unknown NA-NAUSEA/V Verified 10/28/23 13:03 OMITING Sulfa (Sulfonamide Allergy Unknown NA-NAUSEA/V Verified 10/28/23 13:03 Antibiotics) (SULFA OMITING (SULFONAMIDE ANTIBIOTICS)) Assessment and Plan *Assessment and plan (1) Degenerative disc disease, lumbar: Status: Acute Category: Medical Code(s): M51.369 - Other intervertebral disc degeneration, lumbar region without mention of lumbar back pain or lower extremity pain (2) Cervical radiculopathy: Status: Acute Category: Medical Code(s): M54.12 - Radiculopathy, cervical region (3) Lumbar radiculopathy: Status: Acute Category: Medical Code(s): M54.16 - Radiculopathy, lumbar region (4) Degenerative disc disease, cervical: Status: Acute Category: Medical Code(s): M50.30 - Other cervical disc degeneration, unspecified cervical region Plan I did discuss with the patient that if she has not already tried simple kqnv-[id number] medications such as the hydrocortisone cream that it would be beneficial to see if this does help with the clearing of the rash as well as the itching she has been experiencing. I will send in a prescription just to see if it is cheaper however she was counseled to verify that the [id number] is not less. I will refill her Percocet and provide a 1 month supply of this medication. Patient will return to clinic in 1 month for reevaluation of symptoms and plan of care. Risks and benefits of the medication have been explained in detail to the patient. The patient does understand the risk of dependence on the medication when given over a prolonged period. Patient has been advised of risks of oversedation with the prescribed medication. Narcan has been offered to the paitent in the event of oversedation. Patient has been advised that a family member should also be educated regarding administration of Narcan. The patient has been advised to consult with his/her primary care provider and pharmacist regarding drug-drug interaction of medications currently prescribed. Patient has been prescribed a controlled substance after being counseled on the medication, medication safety, and possible side effects. Opioid contract was reviewed and signed by the patient, and that they have agreed to all of the terms set forth by our compliance program. A UDS is needed to verify patient's compliance with our office pain contract. This is ordered based off specific treatments related to chronic pain with the potential to abuse certain medications. Patient has been instructed to contact the clinic with any concerns before the next appointment. Dr. Valderrama has reviewed this note and agrees with this plan of care. This note was dictated using voice recognition software and make contain errors or omissions.
--- OUTSIDE RECORDS SUMMARY | 2024-12-28 14:55 | XMS_ITS | Encounter Summary ---
Author Organization [facility] [place] [address] Care Team Providers Care Crystal Calibrator Name Role Phone Kory Rodriguez MD Unavailable Ar Vaca MD Primary Care Provider + Reason for Visit * Reason Onset Date Comments CM- Telephonic Outreach 12/20/2024 Encounter Details Date Type Department Care Team (Late st Contact Info) Description 12/20/2024 Patient Outreach [address] [address] Gayle Luther, CEASAR CM- Telephonic Outreach Social History Tobacco Use Types Packs/Day Years [...] Date Recorded PHQ-2 Total Score 0 11/02/2024 [facility] - Occupational Stress [...] documented in this encounter Progress Notes * Gayle Luther RN - 12/20/2024 1:16 PM EDT Patient returned call and reports she has been performing the injection. Patient reports son performing injection and doing well. She denies needing any education. Patient reports she did receive a latter from [employer] stating she was enrolled in the assistance program until 07/18/2025. Patient educated that she will be notified when shipment arrives. RN Service Line Bus Cleaner able to educate patient about role in office. RN Service Line Bus Cleaner encouraged patient to reach out if further support is needed. * Gayle Luther RN - 12/20/2024 9:54 AM EDT Patient Outreach First attempt to contact patient regarding injection teaching. Outcome: Unable to reach patient by phone Voicemail box is full/not set up documented in this encounter Plan of Treatment [...] filedocumented in this encounter Additional Health Concerns Assessment Noted Time A fall risk assessment has been complete d for the patient 11/02/2024 3:19 PM EDT documented as of this encounter Care Teams Crystal Calibrator Relationship Specialty Start Date End Date Ar Vaca MD [address] [place] [address] PCP - General Family Medicine 04/28/22 Kory Rodriguez MD [address] [facility] [address] [place] [address] Consulting Physician Internal Medicine-Nephrology 10/03/20 documented as of this encounter
--- OUTSIDE RECORDS SUMMARY | 2024-12-28 14:55 | XMS_ITS | Encounter Summary ---
Author Organization [place] [address] Care Team Providers Care Training Lead Name Role Phone Kory Rodriguez MD Unavailable [phone] Ar Vaca MD Primary Care Provider + Reason for Visit * Reason Comments Medication Refill Encounter Details Date Type Department Care Team (Late st Contact Info) Description 12/21/2024 Refill [facility] [address] [place] [address] Ar Vaca MD [address] [place] [address] Medication Refill Social History Tobacco Use Types Packs/Day Years [...] PHQ-2 Total Score 0 11/02/2024 [facility] Occupat [facility] - Occupational Stress Questionnaire Answer Date Recorded [...] Assessment Author No 11/02/2024 3:21 PM Terri Malone, CEASAR * Does this person have serious [...] Date Author No 11/02/2024 3:21 PM EDT Juan, Terri Rosa, RN documented in this encounter Ordered Prescriptions Prescription Sig Dispense Quantity Refills Last Filled Start Date End Date promethazine (PHENERGAN) 25 mg Oral TabletIndications:N ausea TAKE 1 TABLET BY MOUTH EVERY 6 HOURS NEEDED. FOR NAUSEA 100 Tablet 1 12/21/2024 documented in this encounter Plan of Treatment [...] as of this encounter Visit Diagnoses Diagnosis Nausea Nausea alone documented in this encounter Discontinued Medications Medication Sig Discontinue Reason Start Date End Da te promethazine (PHENERGAN) 25 mg Oral TabletIndications:Nausea Take 1 Tablet by mouth every 6 hours as needed. for nausea 11/02/2024 12/21/2024 documented as of this encounter Additional Health Concerns Assessment Noted Time A fall risk assessment has been complete d for the patient 11/02/2024 3:19 PM EDT documented as of this encounter Care Teams Training Lead Relationship Specialty Start Date End Date Ar Vaca MD [address] [place] [address] PCP - General Family Medicine 04/28/22 Kory Rodriguez MD [address] [facility] [address] [place] [address] Consulting Physician Internal Medicine-Nephrology 10/03/20 documented as of this encounter
--- OUTSIDE RECORDS SUMMARY | 2024-12-28 14:55 | XMS_ITS | Encounter Summary ---
Author Organization [place] [address] Care Team Providers Care Executive Director Sheltered Workshop Name Role Phone Kory Rodriguez MD Unavailable [phone] Ar Vaca MD Primary Care Provider + Reason for Visit * Reason Onset Date Comments Symptoms (Only Use If Pt Pus hes Back On Scheduling A Visit) 12/21/2024 green infection coming out o f sinuses Encounter Details Date Type Department Care Team (Late st Contact Info) Description 12/21/2024 Telephone [facility] [address] [place] [address] Ar Vaca MD [address] [place] [address] Symptoms (Only Use If Pt Pushes Back On Scheduling A Visit) (green infection coming out of sinuses) Social History Tobacco Use Types Packs/Day Years [...] Date Recorded PHQ-2 Total Score 0 11/02/2024 [facility] of Occupat ional Health - Occupational Stress [...] Refills Last Filled Start Date End Date fluconazole (DIFLUCAN) 150 mg Oral TabletIndications: Acute vaginitis 1 today repeat every 3 days as needed 3 Tablet 12/21/2024 doxycycline hyclate (VIBRA-TABS) 100 mg Oral TabletIndications: Acute bacterial sinusitis Take 1 Tablet by mouth 2 times daily for 10 days. 20 Tablet 12/21/2024 12/31/2024 documented in this encounter Miscellaneous Notes * Telephone Encounter - Amanda Contreras RMA - 12/21/2024 3:13 PM EDT Pt notified. * Telephone Encounter - Terri Martinez RN - 12/21/2024 3:10 PM EDT Abx and diflucan sent per Dr Vaca * Telephone Encounter - Amanda Contreras RMA - 12/21/2024 2:56 PM EDT Please advise * Telephone Encounter - Gypsy Villarreal - 12/21/2024 2:52 PM EDT Select the most appropriate reason for this telephone message: Symptoms Call Who is reporting the symptoms: Patient What symptom(s) is the patient experiencing: green infection coming out of sinuses How long have symptoms been present: 3 day(s) ago Has the patient been seen for this:No If no, was an appointment/E-Visit offered/suggested? pt states she was just in office 2 days ago Has the patient tried anything to relieve the symptoms and did it help: N/a If pain, what level on scale 1-10 (10 being the greatest): 6 Desired Outcome: RX, abx, and diflucan for yeast infection from abx Pharmacy & Location:[facility]/pharmacy #[id number] [address] [address] [address] [facility] - [phone] Return Method of Communication: Phone Call Was patient transferred to Nurse Triage for additional help? N/A Additional Information: N/A documented in this encounter Plan of Treatment [...] as of this encounter Visit Diagnoses Diagnosis Acute vaginitis- Primary Vaginitis and vulvovaginitis, unspecified Acute bacterial sinusitis Acute sinusitis, unspecified documented in this encounter Additional Health Concerns Assessment Noted Time A fall risk assessment has been complete d for the patient 11/02/2024 3:19 PM EDT documented as of this encounter Care Teams Executive Director Sheltered Workshop Relationship Specialty Start Date End Date Ar Vaca MD [address] [place] [address] PCP - General Family Medicine 04/28/22 Kory Rodriguez MD [address] [place] [address] Consulting Physician Internal Medicine-Nephrology 10/03/20 documented as of this encounter
--- OUTSIDE RECORDS SUMMARY | 2024-12-28 14:55 | XMS_ITS | Clinical Summary ---
Author Organization [facility] are Address [address] [id number] Phone Care Team Providers Care Verify Rep Name Role Phone Mallory Cortez RN Unavailable Conditions or Problems Problem Name Problem Code Onset Date Status Entry Date Provider Comment Standard Description Annotate Hx of hysterectomy 279991046 (SNOMED CT) Active Mallory Cortez RN Hysterectomy Medications Medication Instructions Start Date Stop Date Generic Name NDC Provider TRAZODONE HCL 50 MG TABS Take on tablet by mouth nightly TRAZODONE HCL [id number] Mallory Cortez RN PROMETHAZINE HCL 25 MG TABS Take 2 tablets by mouth every 12 hours as needed for nausea PROMETHAZINE HCL 12879960740 Mallory Cortez RN OXYCODONE-ACETAM INOPHEN 5-325 MG TABS Take one by mouth eery 6 hrs as needed for pain OXYCODONE-ACETAM INOPHEN [id number] Mallory Cortez RN OMEPRAZOLE 40 MG CPDR Take 1 capsule by mouth daily OMEPRAZOLE [id number] Mallory Cortez RN NITROGLYCERIN 0.[address] 1 tablet under the tongue every 5 minutes as needed for chest pain NITROGLYCERIN [id number] Mallory Cortez RN WOMENS MULTIVITAMIN TABS One by mouth daily MULTIPLE VITAMINS-MINERAL S [id number] Mallory Cortez RN MELOXICAM 15 MG TABS Take one tablet by mouth daily MELOXICAM [id number] Mallory Cortez RN LISINOPRIL-HYDRO CHLOROTHIAZIDE 20-25 MG TABS Take 0.5 tablets by mouth daily LISINOPRIL-HYDRO CHLOROTHIAZIDE [id number] Mallory Cortez RN LEVOTHYROXINE SODIUM 75 MCG TABS Take 1 tablet by mouth daily LEVOTHYROXINE SODIUM 16307660841 Mallory Cortez RN FLUTICASONE PROPIONATE 50 MCG/ACT SUSP FLUTICASONE PROPIONATE 61597625633 Mallory Cortez RN LOTRISONE 1-0.05 % EXTERNAL CREAM Apply topically 2 times daily CLOTRIMAZOLE-BET AMETHASONE 80789237146 Mallory Cortez RN BIOTIN 5000 MCG TABS Take 1 tablet by mouth daily BIOTIN [id number] Mallory Cortez RN ATORVASTATIN CALCIUM 20 MG TABS Take 1 tablet by mouth daily ATORVASTATIN CALCIUM 24471872930 Mallory Cortez RN ASPIRIN LOW STRENGTH 81 MG CHEW Take 1 tablet by mouth daily ASPIRIN 72220760063 Mallory Cortez RN ALLOPURINOL 100 MG TABS Take 1 tablet by mouth 2 times daily ALLOPURINOL [id number] Mallory Cortez RN Medications Administered No information available. Allergies, Adverse Reactions, Alerts No information available. Results No information available. Plan of Care No information available. Procedures No information available. Vital Signs No information available. Immunizations No information available. Advance Directives No information available.
--- OUTSIDE RECORDS SUMMARY | 2024-12-28 14:57 | XMS_ITS | Continuity of Care Document ---
Author Organization [facility] Address [address] [place] [address] Phone Care Team Providers Care Certified Nurse Practitioner Name Role Phone Kory Rodriguez MD Unavailable [phone] Ar Vaca MD Primary Care Provider + Encounters Date Type Department Care Team Description 5 Telephone [facility] [address] [place] [place] [address] Ar Vaca MD Symptoms (Only Use If Pt Pushes Back On Scheduling A Visit) (green infection coming out of sinuses) 5 Refill [facility] [address] [place] [place] [address] Ar Vaca MD Medication Refill 5 Patient Outreach [facility] [place] [place] [address] Gayle Luther RN CM- Telephonic Outreach 5 3:00 PM EDT Office Visit [facility] [place] [facility] [address] [place] [place] [address] Ar Vaca MD Dermatitis (Primary Dx); Systemic lupus erythematosus, unspecified SLE type, unspecified organ involvement status (HCC) 5 12:00 PM EDT Clinical Support [facility] [place] [facility] [address] [place] [place] [address] Darling Guerra RN Prediabetes (Primary Dx) 5 1:30 PM EDT Office Visit [facility] [place] [facility] [address], [place] [address] Karen Gonzalez MD Rash (Primary Dx) 5 Telephone [facility] [address] [place] [address] Ar Vaca MD Prior Authorization (Ozempic) 5 Results Follow-Up [facility] [address] [place] [address] Ar Vaca MD URINE CULTURE (NO STAIN) 5 Results Follow-Up [facility] [address] [place] [address] Ar Vaca MD HEMOGLOBIN A1C, COMPREHENSIVE METABOLIC PANEL, CBC WITH DIFF, Additional followed-up results: 2 5 1:32 PM EDT - 5 11:59 PM EDT Hospital Encounter [facility] [place] [address] [place] [address] Prediabetes; Medicare annual wellness visit, subsequent; Hypertension; Acquired hypothyroidism; Elevated uric acid in blood Discharge Disposition: Home or Self Care 5 1:20 PM EDT Office Visit [facility] [address] [place] [address] Ar Vaca MD Thrush (Primary Dx); Urinary frequency; Acute recurrent cystitis; Morbid obesity with body mass index of 40.0-49.9 ([facility]) 5 Orders Only [facility] [place] [facility] [address] [place] [address] Monica Ibrahim MA Muscle pain; Erosive osteoarthritis of both hands; Gastroesophageal reflux disease with esophagitis without hemorrhage; Hypertension 5 Telephone [facility] [place] [facility] [address] [place] [address] Ar Vaca MD Relaying Information (regarding pt's pharmacy) 5 Telephone [facility] [address] Ar Vaca MD Refill (Propranolol ); Medication Management (Call pharmacy on refills from 11/02 they did not receive per patient ) [address] [address] Ar Vaca MD Medication Refill 5 3:20 PM EDT Office Visit [address] [address] Ar Vaca MD Medicare annual wellness visit, subsequent (Primary Dx); Elevated uric acid in blood; Muscle pain; Acquired hypothyroidism; Hypertension; Erosive osteoarthritis of both hands; Nausea; Gastroesophageal reflux disease with esophagitis without hemorrhage; Prediabetes; Arthritis of right temporomandibular joint; Primary osteoarthritis of left knee [address] [address] Ar Vaca MD Medication Refill ( Disp Refills Start End /omeprazole (PRILOSEC) 40 mg Oral Capsule, Delayed Release(E.C.) 90 Capsule 0 06/22/2024 - /Sig - Route: Take 1 Capsule by mouth daily. - Oral //) 5 Telephone [facility] [place] [address] Ar Vaca MD Health Maintenance [address] [address] Ar Vaca MD Medication Management (RYBELSUS ) 5 Patient Outreach [address] [address] Gayle Luther, CEASAR CM- Telephonic Outreach; CM-Medication Assistance (Rybelsus) 5 Patient Outreach [facility] [address] [place] [address] Ar Vaca MD Central Patient Navigator Outreach (AWV questionnaire) 5 Telephone [facility] [place] [facility] [address] [place] [address] Ar Vaca MD Results (Labs 08/15/24) 5 Telephone [facility] [place] [address] [place] [address] Ar Vaca MD Health Maintenance 5 Telephone [facility] [place] [facility] [place] [address] Ar Vaca MD Medication Management (FYI Change in Pharmacy /2 medications ) 5 2:40 PM EST Clinical Support [facility] [place] [place] [address] Darling Guerra RN Hyperglycemia (Primary Dx) 5 2:35 PM EST - 5 11:59 PM EST Hospital Encounter [facility] [address] [place] [address] Acquired hypothyroidism; Hypertension Discharge Disposition: Home or Self Care 5 1:40 PM EST Office Visit [facility] [address] [place] [address] Ar Vaca MD Hypertension (Primary Dx); Erosive osteoarthritis of both hands; Nausea; Morbid obesity with body mass index of 40.0-49.9 (HCC); Acquired hypothyroidism; Need for vaccine for Td (tetanus-diphtheria); Hyperglycemia 4 Telephone [facility] [place] [address] [place] [address] Ar Vaca MD Refill (4 meds) 4 4:20 PM EST Telemedicine [facility] [address] [place] [address] Ar Vaca MD Acute bacterial sinusitis (Primary Dx); Antibiotic-induced yeast infection 4 Telephone [facility] [place] [address] [place] [address] Ar Vaca MD Other (please either change appt today to alt vv or call in rx) 4 Patient Outreach [facility] [place] [place] [address] Darling Guerra RN Care Transition; CM- Telephonic Outreach; CM-Medication Assistance 4 1:37 PM EDT - 4 11:59 PM EDT Hospital Encounter [facility] [place] [address] [facility] [place] [address] Hypertriglyceridemia; Arthritis; Frequent falls; Fatigue, unspecified type Discharge Disposition: Home or Self Care 4 1:50 PM EDT Office Visit [facility] [place] [place] [address] Ar Vaca MD Frequent falls (Primary Dx); Arthritis; Fatigue, unspecified type 4 Telephone [facility] [place] [place] [address] Ar Vaca MD Prior Authorization 4 Telephone [facility] [place] [address] [place] [address] Ar Vaca MD Refill (3 med refills) 4 Telephone [facility] [address] [place] [address] Ar Vaca MD Results (ERR ) 4 Telephone [facility] [place] [address] [facility] [place] [address] Senait Martínez Karen Health Maintenance; Follow-up (mammogram) 4 Refill [facility] [place] [place] [address] Ar Vaca MD Medication Refill [address] [address] Ar Vaca MD Medication Refill [address] [address] Keating Vivienkaren Blank Karen Prior Authorization 4 10:50 AM EDT Office Visit [address] [address] Ar Vaca MD Hypertriglyceridemia (Primary Dx); Constipation, chronic; Hypernatremia; CKD stage G2/A2, GFR 60-89 and albumin creatinine ratio 30-299 mg/g; Acquired hypothyroidism; Hypertension; Dizziness; Nail problem; Allergic conjunctivitis, bilateral 4 Patient Outreach [address] [address] Diana Walker, CEASAR Care Management - Chart Review 4 Patient Outreach [address] [address] Darling Guerra, warehouse shipper; CM- Telephonic Outreach; CM-Medication Assistance [address] [address] Ar Vaca MD Medication Management ( Disp Refills Start End /semaglutide (RYBELSUS) 14 mg Oral Tablet 120 Tablet 0 09/03/2023 - /Sig - Route: Take 1 Tablet by mouth daily. - Oral //) [address] [address] Ar Vaca MD Medication Refill [address] [address] Ar Vaca MD Medication Refill 4 Telephone [facility] [place] [facility] [address] [place] [address] Ar Vaca MD Medication Management 4 Telephone [facility] [place] [address] Yoko Ortiz, RN Results 4 12:41 PM EDT - 4 11:59 PM EDT Hospital Encounter [facility] [address] [place] [address] Urinary frequency Discharge Disposition: Home or Self Care 4 Telephone [facility] [place] [address] [place] [address] Ar Vaca MD Orders (Urinalyses ) 4 Telephone [facility] [place] [address] [place] [address] Vivien Keating [facility] Prior Authorization 4 Telephone [facility] [place] [address] [place] [address] Senait Martínez Karen Health Maintenance 4 4:10 PM EST Ancillary Procedure [facility] [place] [address] [facility] [place] [address] Ar Vaca MD DDD (degenerative disc disease), cervical Discharge Disposition: Home or Self Care 4 3:43 PM EST - 4 11:59 PM EST Hospital Encounter [facility] [address] [place] [address] Elevated LFTs Discharge Disposition: Home or Self Care 4 3:00 PM EST Office Visit [facility] [place] [facility] [address] [place] [place] [address] Ar Vaca MD Muscle pain (Primary Dx); Nausea; DDD (degenerative disc disease), cervical; Essential hypertension 4 Telephone [facility] [address] Ar Vaca MD Appointment Needed (Re-check UA) 4 Patient Outreach [facility] [address] [place] [id number] Ar Vaca MD Central Patient Navigator Outreach (AWV/); Central Order Completion Outreach (Mammogram); CM-Medication Assistance; CM- Telephonic Outreach; Care Transition 4 Patient Outreach [address] [address] Diana Walker RN CM- Telephonic Outreach; Care Transition; CM-Medication Assistance 4 Orders Only [address] [address] Ar Vaca MD Elevated LFTs (Primary Dx) [address] [address] Ar Vaca MD Medication Refill 4 3:30 PM EST Office Visit [facility] [address] Diana Walker, CEASAR Encounter for support and coordination of transition of care (Primary Dx) 4 3:20 PM EST Office Visit [address] [address] Ar Vaca MD Medicare annual wellness visit, subsequent (Primary Dx); Elevated uric acid in blood; WILLIE (generalized anxiety disorder); Acquired hypothyroidism; CKD stage G2/A2, GFR 60-89 and albumin creatinine ratio 30-299 mg/g; Gastroesophageal reflux disease with esophagitis without hemorrhage; DDD (degenerative disc disease), cervical; Essential hypertension; Morbid obesity with body mass index of 40.0-49.9 ([facility]); Prediabetes; Urinary frequency; Major depressive disorder, single episode, in partial remission; Chronic kidney disease, stage 3a (HCC) 4 Refill [facility] [facility] [address] [place] [place] [address] Ar Vaca MD Medication Refill 3 Refill [facility] [place] [facility] [address] [place] [place] [address] Ar Vaca MD Medication Refill 3 1:45 PM EDT Clinical Support [facility] [address] [place] [place] [address] Ashly Pereira, [facility] Need for influenza vaccination (Primary Dx) 3 Orders Only [facility] [place] [place] [address] Ar Vaca MD Sinobronchitis (Primary Dx); Elevated uric acid in blood [address] [address] Ar Vaca MD Symptom Call (sore throat, coughing up greenish/yellowish mucus, ears hurt, eyes matted in morning/) 3 3:40 PM EDT Office Visit [facility] [place] [facility] [address] [place] [place] [address] Ar Vaca MD Acute URI (Primary Dx); Encounter for screening for COVID-19; Hypotension, unspecified hypotension type; CKD stage G2/A2, GFR 60-89 and albumin creatinine ratio 30-299 mg/g 3 Telephone [facility] [place] [facility] [address] [place] [place] [address] Ar Vaca MD Symptom Call (throat/ear pain, body aches x this morning, no bal, [employer] Medicare) 3 Refill [facility] [place] [facility] [address] [place] [place] [address] Ar Vaca MD Medication Refill [address] [address] Ar Vaca MD Medication Refill 3 Patient Outreach [facility] [address] [place] [address] Ar Vaca MD Central Order Completion Outreach (mammo) 3 Patient Outreach [place] [phone] Diana Walker, RN CM- Telephonic Outreach; Care Transition; CM-Medication Assistance 3 2:04 PM EDT - 3 11:59 PM EDT Hospital Encounter [facility] [place] [phone] Hypertriglyceridemia; Hyperglycemia; Screening, lipid; Acquired hypothyroidism Discharge Disposition: Home or Self Care 3 2:00 PM EDT Office Visit [place] [phone] Ramonita Hernadez APRN Seasonal allergic rhinitis, unspecified trigger (Primary Dx); Hypertriglyceridemia; Screening, lipid; Acquired hypothyroidism; Stage 3a chronic kidney disease (HCC); Hyperglycemia [address] [address] Ar Vaca MD Symptom Call (right ear pain,nausea,no appetite,body aches and dizziness x1 week) [address] [address] Ar Vaca MD Symptom Call [address] [address] Ar Vaca MD Medication Refill [address] [address] Ar Vaca MD Medication Refill 3 Refill [facility] [address] [place] [address] Cornejo, Viral V, DO Medication Refill 3 Patient Outreach [facility] [address] [place] [address] Diana Walker RN CM- Telephonic Outreach; Care Transition; CM-Medication Assistance 3 Refill [facility] [address] [place] [address] Ar Vaca MD Medication Refill [address] [address] Ar Vaca MD Symptom Call (yeast infections ) [address] [address] Ar Vaca MD Medication Refill [address] [address] Ar Vaca MD Medication Refill 3 1:15 PM EDT Office Visit [facility] [address] [address] Gabbie Simms MD Acute non-recurrent maxillary sinusitis (Primary Dx) 3 Patient Outreach [address] [address] Diana Walker RN CM- Telephonic Outreach; Care Transition; CM-Medication Assistance 3 Refill [facility] [address] [address] Ar Vaca MD Medication Refill [address] [address] Ar Vaca MD Medication Refill (promethazine (PHENERGAN) 25 mg Oral Tablet) 3 Telephone [address] [place] [address] Ar Vaca MD Symptom Call (Possible UTI/) 3 Patient Outreach [address] [address] Diana Walker RN Care Management - Face To Face; Care Transition; CM-Medication Assistance [address] [address] Ar Vaca MD Results 3 Patient Outreach [address] [address] Diana Walker RN CM- Telephonic Outreach; Care Transition; CM-Medication Assistance; CM-Resource Coordination [address] [address] Ar Vaca MD Medication Management 3 Travel 3 10:00 AM EST - 3 11:59 PM EST Hospital Encounter [facility] [address] [place] [address] Dizziness; CKD stage G2/A2, GFR 60-89 and albumin creatinine ratio 30-299 mg/g; Pre-diabetes; Routine lab draw; Hypertriglyceridemia; Acquired hypothyroidism; Elevated uric acid in blood Discharge Disposition: Home or Self Care 3 2:30 PM EST Office Visit [facility] [place] [address] Ar Vaca MD Dizziness (Primary Dx); Fall, initial encounter; Routine lab draw; CKD stage G2/A2, GFR 60-89 and albumin creatinine ratio 30-299 mg/g; Acquired hypothyroidism; Pre-diabetes; Hypertriglyceridemia; Elevated uric acid in blood; Morbid obesity with body mass index of 40.0-49.9 (HCC); Prediabetes [address] [place] [address] Ar Vaca MD Appointment Needed (falling) 2 Refill [facility] [place] [facility] [address] [place] [place] [address] Ar Vaca MD Medication Refill 2 2:20 PM EST Office Visit [facility] [place] [place] [address] Ar Vaca MD Acute bacterial sinusitis (Primary Dx); Encounter for screening mammogram for breast cancer; Allergic reaction, initial encounter; Need for influenza vaccination 2 Refill [facility] [place] [place] [address] Ar Vaca MD Medication Refill 2 Patient Outreach [address] [address] Darling Guerra, RN CM-Medication Assistance; CM- Telephonic Outreach; Care Transition 2 Patient Outreach [facility] [address] [place] [address] Ar Vaca MD Central Order Completion Outreach (Mammogram/) [address] [address] Ar Vaca MD Medication Refill (Inderal) [address] [address] Ar Vaca MD Medication Refill 2 Patient Outreach [address] [address] Darling Guerra, RN CM-Medication Assistance; CM- Telephonic Outreach; Care Transition 2 Patient Outreach [address] [address] Diana Walker RN CM- Telephonic Outreach; CM-Medication Assistance; Care Transition [address] [address] Ar Vaca MD Medication Refill 2 Patient Outreach [address] [address] Darling Guerra RN CM-Medication Assistance; Care Transition; Care Management - Face To Face 2 3:20 PM EDT Office Visit [address] [address] Ar Vaca MD Morbid obesity with body mass index of 40.0-49.9 (HCC) (Primary Dx); Need for shingles vaccine; Prediabetes [address] [address] Cornejo, Viral V, DO Medication Management (RYBELSUS 7 mg Oral Tablet) [address] [address] Cornejo, Viral V, DO Medication Refill [address] [address] Cornejo, Viral V, DO Medication Refill [address] [address] Cornejo, Viral V, DO Medication Refill 2 Telephone [place] [phone] Isaac Washington MD Patient Question 2 [facility] [address] Cornejo, Viral V, DO Medication Management (Rybelsus) 2 Refill [facility] [place] [address] [place] [address] Cornejo, Viral V, DO Medication Refill 2 4:00 PM EDT Office Visit [facility] [address] [place] [address] Ar Vaca MD Medicare annual wellness visit, subsequent (Primary Dx); Acute bacterial sinusitis; DDD (degenerative disc disease), cervical; Antibiotic-induced yeast infection; Elevated uric acid in blood; Acquired hypothyroidism; Essential hypertension; Gastroesophageal reflux disease with esophagitis without hemorrhage; WILLIE (generalized anxiety disorder); Stage 3a chronic kidney disease (HCC); Hyperglycemia 2 Refill [facility] [place] [address] [place] [address] Cornejo, Viral V, DO Medication Refill 2 Telephone [facility] [place] [place] [address] Cornejo, Viral V, DO Prior Authorization 2 Refill [facility] [place] [address] [place] [address] Cornejo, Viral V, DO Medication Refill 2 Refill [facility] [place] [address] [place] [address] Cornejo, Viral V, DO Medication Refill (Phenergan ) 2 Refill [facility] [place] [address] [place] [address] Cornejo, Viral V, DO Medication Refill 2 2:15 PM EDT Office Visit [address] [address] Isaac Washington MD Strain of neck muscle, initial encounter (Primary Dx); Lumbar pain; Strain of lumbar region, initial encounter; Spondylosis 2 Refill [facility] [place] [address] [place] [address] Cornejo, Viral V, DO Medication Refill 2 Patient Outreach [address] [address] Donna Galloway RMA Central Order Completion Outreach 2 Travel 2 2:00 PM EST Office Visit [facility] [address] [address] Jenni Vega PA-C Person under investigation for COVID-19 (Primary Dx); Bronchitis [address] [place] [address] Cornejo, Viral V, DO Medication Management [address] [place] [address] Cornejo, Viral V, DO Medication Reaction [address] [address] Cornejo, Viral V, DO Medication Refill 2 3:30 PM EST Office Visit [address] [address] Cornejo, Viral V, DO DDD (degenerative disc disease), cervical (Primary Dx); Acquired hypothyroidism; Essential hypertension; Suspected COVID-19 virus infection [address] [address] Cornejo, Viral V, DO Medication Refill 2 Orders Only [address] [address] Kassy Osman RMA DDD (degenerative disc disease), cervical (Primary Dx) 2 Travel 2 7:42 AM EST - 2 11:59 PM EST Hospital Encounter [address] [place] [address] Cornejo, Viral V, DO Lymphadenopathy, cervical Discharge Disposition: Home or Self Care 2 Orders Only [facility] [address] [place] [place] [address] Cornejo, Viral V, DO Hyperlipidemia, unspecified hyperlipidemia type (Primary Dx) 2 Telephone [facility] [place] [address] [place] [address] Cornejo, Viral V, DO Results 2 Refill [facility] [place] [address] [place] [address] Cornejo, Viral V, DO Medication Refill 1 Orders Only [facility] [place] [place] [address] Cornejo, Viral V, DO Lymphadenopathy, cervical (Primary Dx) 1 Travel 1 10:50 AM EST - 1 11:59 PM EST Hospital Encounter [facility] [address] [place] [address] Cornejo, Viral V, DO Lymphadenopathy, cervical Discharge Disposition: Home or Self Care 1 Telephone [facility] [place] [address] Cornejo, Viral V, DO Results (US HEAD NECK SOFT TISSUE) 1 Orders Only [facility] [place] [address] Cornejo, Viral V, DO Lymphadenopathy, cervical (Primary Dx) 1 10:25 AM EST Hospital Encounter [facility] [address] [place] [address] Cornejo, Viral V, DO Hyperlipidemia, unspecified hyperlipidemia type; Hypertension; Acquired hypothyroidism; Hyperglycemia Discharge Disposition: Home or Self Care 1 Travel 1 10:26 AM EST - 1 11:59 PM EST Hospital Encounter [facility] Ultrasound [address] [address] Cornejo, Viral V, DO Lymphadenopathy, cervical Discharge Disposition: Home or Self Care [address] [address] Clemente Viral V, DO Medication Refill 1 Travel 1 2:40 PM EST Office Visit [address] [address] Clemente, Viral V, DO Acquired hypothyroidism (Primary Dx); Hypertension; WILLIE (generalized anxiety disorder); Fibromyalgia; OME (otitis media with effusion), right; Lymphadenopathy, cervical; Hyperglycemia; Hyperlipidemia, unspecified hyperlipidemia type; Knee strain, right, initial encounter [address] [address] Clemente Viral V, DO Symptom Call (pt is broken out from the inside of her mouth all the way down to her vagina, from the antibiotic.) [address] [address] Clemente Viral V, DO Medication Refill 1 Travel 1 1:45 PM EDT Office Visit [facility] Pod[facility] [place] [phone] Hilary Amaya, DPM Pain in right toe(s) (Primary Dx); Dystrophic nail [address] [address] Clemente Viral V, DO Medication Refill (omeprazole (PRILOSEC) 40 mg Oral Capsule, Delayed Release(E.C.)); Medication Refill (allopurinoL (ZYLOPRIM) 100 mg Oral Tablet); Medication Refill (propranoloL (INDERAL) 20 mg Oral Tablet); Medication Refill (lisinopriL-hydrochlorothiazid e (PRINZIDE;ZESTORETIC) 20-25 mg Oral Tablet); Medication Refill (LEVOthyroxine (SYNTHROID) 75 mcg Oral Tablet); Medication Refill [address] [address] Cornejo, Viral V, DO Medication Reaction (CYMBALTA) 1 3:28 PM EDT - 1 11:59 PM EDT Hospital Encounter [facility] [place] [facility] [address] [place] [address] WILLIE (generalized anxiety disorder); Fibromyalgia; Erosive osteoarthritis of both hands; MICHAEL (obstructive sleep apnea); Essential hypertension; Acquired hypothyroidism Discharge Disposition: Home or Self Care 1 Travel 1 3:00 PM EDT Office Visit [facility] [address] [place] [address] Cornejo, Viral V, DO WILLIE (generalized anxiety disorder) (Primary Dx); Fibromyalgia; Erosive osteoarthritis of both hands; MICHAEL (obstructive sleep apnea); Essential hypertension; Acquired hypothyroidism; OM (onychomycosis) 1 Telephone [facility] [address] [place] [address] Cornejo, Viral V, DO Anxiety 1 Refill [facility] [address] [place] [address] Cornejo, Viral V, DO Medication Refill (promethazine) 1 Travel 1 Telephone [facility] Neph[facility] [place] [address] [address] Kory Rodriguez MD Appointment Needed 1 3:15 PM EDT Office Visit [facility] Rheumatology [facility] [address] [facility] Building [address] [place] [phone] Lacho Ennis MD Erosive osteoarthritis of both hands (Primary Dx); Acquired deformity of hand, unspecified laterality; Primary osteoarthritis involving multiple joints 1 Telephone [facility] [address] [place] [address] Maynor Ramirez MD Other 1 Refill [facility] [address] [place] [address] Cornejo, Viral V, DO Medication Refill (Levothyroxine to local pharmacy.); Medication Refill (Multiple refills to [facility] 1 Travel 1 1:30 PM EDT [facility] [address] [place] [phone] Maynor Ramirez MD Sternoclavicular (joint) (ligament) sprain, right, initial encounter (Primary Dx) 1 Telephone [facility] [address] [place] [address] Cornejo, Viral V, DO Other 1 Telephone [facility] [place] [place] [address] [place] [address] Stevie Piña MD Other [address] [address] Cornejo, Viral V, DO Other 1 12:15 PM EDT - 1 11:59 PM EDT Hospital Encounter [facility] [address] [place] [id number] Acquired deformity of hand, unspecified laterality; Primary osteoarthritis of both hands Discharge Disposition: Home or Self Care 1 Travel 1 1:40 PM EDT - 1 11:59 PM EDT Hospital Encounter [facility] [address] [place] [address] CKD stage G2/A2, GFR 60-89 a nd albumin creatinine ratio 30-299 mg/g; Hyperglycemia; Vitamin D deficiency; Acquired deformity of hand, unspecified laterality Discharge Disposition: Home or Self Care 1 Travel 1 Travel 1 1:00 PM EDT Office Visit [facility] Rheumatology [facility] [address] [place] [address] [address] [place] [address] Lacho Ennis MD Acquired deformity of hand, unspecified laterality (Primary Dx); Primary osteoarthritis of both hands; Primary osteoarthritis involving multiple joints; Vitamin D deficiency; Stage 3a chronic kidney disease (HCC); Hyperuricemia 1 Travel 1 3:20 PM EDT Office Visit [facility] [place] [address] [place] [address] Cornejo, Viral V, DO Generalized osteoarthritis of multiple sites (Primary Dx); Acquired hypothyroidism; Essential hypertension; Elevated uric acid in blood; Gastroesophageal reflux disease with esophagitis without hemorrhage; Hyperglycemia; Adhesive capsulitis of right shoulder 1 Travel 1 Patient Outreach [place] [address] [place] [address] Anuj Fernández LPN ED Follow-Up Call 1 Travel 1 1:51 AM EDT - 1 4:43 AM EDT Emergency [facility] [place] [address] Henry Valiente MD Dysuria (Primary Dx); Lower abdominal pain Discharge Disposition: Home or Self Care 1 Telephone [facility] [address] [place] [place] [address] Cornejo, Viral V, DO Medication Management (nitrofurantoin, macrocrystal-monohydrate, (MACROBID) 100 mg Oral Capsule) 1 Travel 1 Orders Only [facility] [place] [address] Laurie Rodriguez RMA UTI (urinary tract infection), uncomplicated 1 6:10 PM EST Office Visit [facility] [address] [place] [place] [address] Cornejo, Viral V, DO UTI (urinary tract infection), uncomplicated (Primary Dx); Post-menopausal; Hyperlipidemia, unspecified hyperlipidemia type; Acquired hypothyroidism; Fibromyalgia; Claudication; Medicare annual wellness visit, subsequent; Cystic lesion of abdominal viscera 1 Travel 1 Telephone [facility] [place] [address] Cornejo, Viral V, DO Symptom Call 1 Telephone [facility] [address] [facility] [place] [place] [address] Cornejo, Viral V, DO Medication Management (changing to a mail-in Pharmacy) 1 Travel 1 11:15 AM EST Office Visit [facility] [place] [address] [place] [address] Kory Rodriguez MD CKD stage G2/A2, GFR 60-89 and albumin creatinine ratio 30-299 mg/g; Unspecified essential hypertension; Primary osteoarthritis of left knee; Morbid obesity with body mass index of 40.0-49.9 ([facility]) 1 Travel 1 3:00 PM EST - 1 11:59 PM EST Hospital Encounter [facility] [address] [place] [address] Stevie Piña MD Sternum pain Discharge Disposition: Home or Self Care 1 Travel 1 Travel 1 Patient Outreach [facility] [address] [place] [address] Cornejo, Viral V, DO Central Order Completion Outreach (XR Shoulder Right 4 Views; Mammogram ) 1 Orders Only [facility] [address] [place] [address] Sandy Chen LPN Primary osteoarthritis of right shoulder (Primary Dx) 1 9:57 AM EST - 1 11:59 PM EST Hospital Encounter [facility] [address] [place] [address] Acute non-recurrent sinusiti s of other sinus; Acute bronchitis, unspecified organism; COVID-19 virus infection; Clavicle pain Discharge Disposition: Home or Self Care 1 Travel 1 Telephone [facility] [address] [place] [address] Cornejo, Viral V, DO Orders (xray) 1 5:30 PM EST Telemedicine [facility] [place] [place] [address] Cornejo, Viral V, DO Acute non-recurrent sinusitis of other sinus (Primary Dx); Acute bronchitis, unspecified organism; COVID-19 virus infection 1 Travel [facility] [place] [address] Cornejo, Viral V, DO Appointment Needed 1 Patient Outreach [facility] [address] [place] [address] Cornejo, Viral V, DO Central Patient Navigator Outreach (AWV Questionnaire) [address] [place] [address] Cornejo, Viral V, DO Follow-up (covid ) 1 Travel 1 2:10 PM EST - 1 11:59 PM EST Hospital Encounter [facility] [address] [facility] [place] [address] Cornejo, Viral V, DO Low kidney function Discharge Disposition: Home or Self Care 1 Travel 0 Travel 0 Orders Only [address] [address] Sandy Chen LPN Low kidney function (Primary Dx) [address] [address] Cornejo, Viral V, DO Results (BW from 07/10) 0 2:35 PM EST - 0 11:59 PM EST Hospital Encounter [facility] [address] [facility] [place] [address] Acquired hypothyroidism; Essential hypertension; Hypothyroidism (acquired); Low kidney function; Elevated serum free T4 level Discharge Disposition: Home or Self Care 0 Travel 0 Refill [facility] [facility] [address] [place] [address] Cornejo, Viral V, DO Medication Refill 0 Travel 0 Telephone [facility] [address] [place] [address] Cornejo, Viral V, DO Referral (analytics director ) 0 Telephone [facility] [address] [place] [address] Cornejo, Viral V, DO Orders (mammogram) 0 Telephone [facility] [address] [place] [place] [address] Senait Martínez, EDGAR Shoulder Pain 0 Orders Only [facility] [address] [place] [address] Senait Martínez, RMA H/O drug allergy (Primary Dx) 0 Travel 0 10:50 AM EST Office Visit [facility] [address] [place] [address] Sacha Keller MD OME (otitis media with effusion), right (Primary Dx); H/O drug allergy; Vaginal yeast infection 0 Travel 0 Travel 0 10:00 AM EST Office Visit [facility] [address] [place] [phone] Shawna Ward MD Class 3 severe obesity due to excess calories with body mass index (BMI) of 50.0 to 59.9 in adult, unspecified whether serious comorbidity present (HCC) (Primary Dx) 0 Orders Only [facility] [place] [facility] [address] [place] [address] Jenni Feliz, RMA Acute diffuse otitis externa of right ear 0 Orders Only [facility] [address] [place] [place] [address] Sandy Chen LPN Elevated TSH (Primary Dx); Elevated serum free T4 level; Acquired hypothyroidism 0 Telephone [facility] [address] [address] Cornejo, Viral V, DO Results (05/15/2020); Symptom Call (uti) 0 11:33 AM EDT - 0 11:59 PM EDT Hospital Encounter [facility] [place] [facility] [address] [place] [address] Hypothyroidism (acquired); Unspecified essential hypertension Discharge Disposition: Home or Self Care 0 10:50 AM EDT [facility] [address] Cornejo, Viral V, DO Acute diffuse otitis externa of right ear (Primary Dx); Yeast vaginitis; Hypothyroidism (acquired); Unspecified essential hypertension 0 [facility] [address] Cornejo, Viral V, DO Symptom Call 0 [facility] [address] Cornejo, Viral V, DO Results (blood work ) [address] [address] Cornejo, Viral V, DO Medication Refill 0 Travel 0 4:20 PM EDT - 0 11:59 PM EDT Hospital Encounter [facility] [place] [facility] [address] [place] [address] Need for influenza vaccination; Acquired hypothyroidism; Essential hypertension; Sinusitis, unspecified chronicity, unspecified location; Dizziness; Fibromyalgia; Gastroesophageal reflux disease with esophagitis; Nausea; Elevated uric acid in blood Discharge Disposition: Home or Self Care 0 3:40 PM EDT Office Visit [facility] [address] [place] [address] Cornejo, Viral V, DO Acquired hypothyroidism (Primary Dx); Need for influenza vaccination; Essential hypertension; Sinusitis, unspecified chronicity, unspecified location; Dizziness; Fibromyalgia; Gastroesophageal reflux disease with esophagitis without hemorrhage; Nausea; Elevated uric acid in blood; Pannus, abdominal 0 Travel 0 Telephone [facility] [address] [place] [address] Cornejo, Viral V, DO Symptom Call (right ear pain, dizziness) 0 Travel [facility] [place] [address] Cornejo, Viral V, DO Results (batista ) [address] [address] Cornejo, Viral V, DO Symptom Call (yeast infection ) 0 Travel 0 4:50 PM EDT [facility] [place] [address] Cornejo, Viral V, DO Suspected COVID-19 virus infection (Primary Dx); Nausea; Essential hypertension; Gastroesophageal reflux disease with esophagitis; Sinusitis, unspecified chronicity, unspecified location; Dizziness; Fibromyalgia; Acquired hypothyroidism; Elevated uric acid in blood; Acute non-recurrent sinusitis of other sinus; DDD (degenerative disc disease), lumbar 0 Travel [facility] [address] [place] [address] Cornejo, Viral V, DO Symptom Call (dizzy, both ears hurt, sinuses feel puffy, throat is a little sore) 0 Telephone [facility] [address] [place] [address] Lora Domínguez, EDGAR Other 0 Patient Outreach [facility] [address] [place] [address] Cornejo, Viral V, DO Schedule Appointment 0 4:16 PM EDT - 0 11:59 PM EDT Hospital Encounter [facility] [place] [address] [address] Subjective memory complaints ; Hypothyroidism (acquired); Abnormal glucose Discharge Disposition: Home or Self Care 0 Travel 0 2:15 PM EDT - 0 4:15 PM EDT Hospital Encounter [facility] [address] [place] [address] Arthritis of right foot; Arthritis of left foot; Capsulitis of ankle, right Discharge Disposition: Home or Self Care 0 3:30 PM EDT Office Visit [address] [address] Karen Gonzalez MD Pain in both hands (Primary Dx); Abnormal glucose; Hypothyroidism (acquired); Subjective memory complaints 0 Travel [address] [address] Cornejo, Viral V, DO Appointment Needed (neck, collarbone, shoulder pain on the right side / feels like there is a heaviness in her chest / worsening in the last week) 0 Travel 0 Patient Outreach [address] [address] Cornjeo, Viral V, DO Central Order Completion Outreach [address] [address] Cornejo, Viral V, DO Symptom Call (leg and hand swelling) [address] [address] Cornejo, Viral V, DO Other 0 Orders Only [address] [phone] Ramonita Hernadez APRN Thrush (Primary Dx); Acute bronchitis, unspecified organism 0 Telephone [facility] [address] [place] [place] [address] Jameson Terrazas LPN Extremity Weakness 0 Telephone [facility] [place] [facility] [address] [place] [place] [address] Cornejo, Viral V, DO Medication Management (predniSONE (DELTASONE) 20 mg Oral Table) 0 Telephone [facility] [place] [facility] [address] [place] [place] [address] Cornejo, Viral V, DO Symptom Call (dizziness, weakness, cough, ear ache ) 0 Telephone [facility] [facility] [address] [place] [place] [address] Cornejo, Viral V, DO Medication Management (Prednisone ) 0 Orders Only [facility] [address] [place] [address] Sandy Chen LPN Fibromyalgia; Viral syndrome 0 3:20 PM EDT Office Visit [facility] [address] [place] [address] Cornejo, Viral V, DO Acquired hypothyroidism (Primary Dx); Unspecified essential hypertension; WILLIE (generalized anxiety disorder); Fibromyalgia; Viral syndrome 0 Travel 0 Telephone [facility] [address] [place] [address] Cornejo, Viral V, DO Medication Problem (Venlafaxine and Lyrica) 0 Orders Only [facility] [address] [place] [address] Jameson Terrazas LPN Low kidney function (Primary Dx); Hypothyroidism (acquired) 0 3:50 PM EST - 0 11:59 PM EST Hospital Encounter [facility] [place] [facility] [address] [place] [address] Acquired hypothyroidism; Hyperglycemia; Essential hypertension Discharge Disposition: Home or Self Care 0 3:30 PM EST Office Visit [facility] [address] [place] [address] Cornejo, Viral V, DO Hyperglycemia (Primary Dx); Acquired hypothyroidism; Essential hypertension; Fibromyalgia; Nausea; Eczema, unspecified type; Gastroesophageal reflux disease with esophagitis; WILLIE (generalized anxiety disorder); Elevated uric acid in blood; Sinusitis, unspecified chronicity, unspecified location; Dizziness; Well adult exam 0 Telephone [facility] [address] [place] [address] Cornejo, Viral V, DO Lab Orders (thyroid ) 9 11:03 AM EST - 9 11:59 PM EST Hospital Encounter [facility] [address] [address] Serum potassium elevated; WILLIE (generalized anxiety disorder); Seasonal allergic rhinitis due to pollen; Unspecified essential hypertension; Acquired hypothyroidism; Fibromyalgia Discharge Disposition: Home or Self Care 9 3:30 PM EST Office Visit [address] [address] Cornejo, Viral V, DO WILLIE (generalized anxiety disorder) (Primary Dx); Need for influenza vaccination; Seasonal allergic rhinitis due to pollen; Unspecified essential hypertension; Acquired hypothyroidism; Fibromyalgia 9 Refill [facility] [address] [place] [address] Cornejo, Viral V, DO Medication Refill 9 Refill [facility] [address] [place] [address] Cornejo, Viral V, DO Medication Refill 9 Telephone [facility] [address] [place] [address] Cornejo, Viral V, DO Other ( sending results from uropathy ) 9 5:04 PM EDT - 9 11:59 PM EDT Hospital Encounter [facility] MRI [address] [place] [address] Efrem Higginbotham MD Low back pain, unspecified back pain laterality, unspecified chronicity, unspecified whether sciatica present; Degeneration of lumbar intervertebral disc Discharge Disposition: Home or Self Care [address] [address] Cornejo, Viral V, DO Symptom Call [address] [address] Cornejo, Viral V, DO Referral Follow-up (Sleep Med) 9 3:40 PM EDT Office Visit [facility] [address] [place] [address] Cornejo, Viral V, DO Lumbar radiculopathy (Primary Dx); DDD (degenerative disc disease), lumbar; Situational depression [address] [address] Clemente Viral V, DO Medication Refill 9 Orders Only [address] [address] Jameson TerrazasJASIEL 9 1:45 PM EDT - 9 11:59 PM EDT Hospital Encounter [facility] [address] [place] [address] Essential hypertension; Hyperglycemia Discharge Disposition: Home or Self Care 9 4:00 PM EDT Hospital Encounter [facility] [address] [place] [address] Left without seen 9 3:40 PM EDT Office Visit [address] [address] Cornejo, Viral V, DO Hyperlipidemia with target LDL less than 100 (Primary Dx); Acquired hypothyroidism; Fibromyalgia; Gastroesophageal reflux disease with esophagitis; Nausea; Eczema, unspecified type; Essential hypertension; Insomnia, persistent; Need for hepatitis B vaccination; Need for pneumococcal vaccination; MICHAEL (obstructive sleep apnea); Hyperglycemia; Lipoma of upper extremity, unspecified laterality [address] [place] [address] Cornejo, Viral V, DO Referral (GI Doctor) [address] [address] Senait Martínez [facility] Paperwork/forms [address] [address] Cornejo, Viral V, DO Medication Refill [address] [place] [address] Cornejo, Viral V, DO Medication Refill [address] [address] Cornejo, Viral V, DO Medication Management (cancel prescription for amitriptyline (ELAVIL) 50 mg Oral Tablet [[id number]] ) 9 Orders Only [address] [place] [address] Senait Martínez [facility] Insomnia, persistent; Eczema, unspecified type; Acquired hypothyroidism; Gastroesophageal reflux disease with esophagitis; Nausea; Unspecified essential hypertension; Hyperlipidemia with target LDL less than 100; Elevated uric acid in blood; Fibromyalgia; Essential hypertension [address] [place] [address] Sandy Chen LPN Other [address] [place] [address] Cornejo, Viral V, DO Medication Management (traZODone (DESYREL) 50 mg Oral Tablet) 9 2:11 PM EST - 9 11:59 PM EST Hospital Encounter [facility] [place] [facility] [address] [place] [address] Arthralgia of both hands; Pain in joints of both feet Discharge Disposition: Home or Self Care 9 1:30 PM EST Office Visit [facility] [place] [address] Ramonita Hernadez APRN Arthralgia of both hands (Primary Dx); Pain in joints of both feet; Eczema, unspecified type; Acquired hypothyroidism; Insomnia, persistent [address] [address] Cornejo, Viral V, DO Medication Refill 9 Refill [facility] [address] [address] Cornejo, Viral V, DO Medication Refill 9 Telephone [facility] [place] [address] Cornejo, Viral V, DO Other (Medical Necessity for personal home helper benefit) 9 Orders Only [address] [address] Jameson Terrazas LPN Fibromyalgia; Hyperlipidemia with target LDL less than 100 9 11:41 AM EST - 9 11:59 PM EST Hospital Encounter [facility] [address] [place] [address] [place] [address] Cornejo, Viral V, DO Claudication; Lumbar radiculopathy; Numbness of right foot Discharge Disposition: Home or Self Care 9 Telephone [facility] [place] [place] [address] Cornejo, Viral V, DO Medication Management (pharmacy change ) 9 Refill [facility] [place] [address] Cornejo, Viral V, DO Medication Refill 9 Orders Only [facility] [address] [place] [address] Senait Martínez RMA Serum potassium elevated (Primary Dx) 9 Refill [facility] [address] [address] Cornejo, Viral V, DO Medication Refill 9 4:18 PM EST - 9 11:59 PM EST Hospital Encounter [facility] [address] [address] Hyperlipidemia with target L DL less than 100; Controlled type 2 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 disease, 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) Discharge Disposition: Home or Self Care 9 3:10 PM EST Office Visit [address] [address] Cornejo, Viral V, DO Acute non-recurrent sinusitis of other sinus (Primary Dx); Tinea corporis; WILLIE (generalized anxiety disorder); Abdominal lipoma; Claudication; Numbness of right foot; Lumbar radiculopathy; Controlled type 2 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 disease, 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); Obesity, Class III, BMI 40-49.9 (morbid obesity) ([facility]); Encounter for screening mammogram for breast cancer; Acute vaginitis [address] [address] Cornejo, Viral V, DO Medication Refill 9 Telephone [facility] [address] [place] [address] Cornejo, Viral V, DO Symptom Call (sinus infection) 8 3:20 PM EST - 8 11:59 PM EST Hospital Encounter [facility] [address] [place] [address] Acquired hypothyroidism; Hyperlipidemia with target LDL less than 100; Fatty liver; Increased potassium in the blood Discharge Disposition: Home or Self Care 8 Telephone [facility] [address] [place] [address] Sandy Chen LPN Sinusitis 8 Refill [facility] [address] [place] [address] Cornejo, Viral V, DO Medication Refill 8 4:10 PM EDT Office Visit [facility] [address] [place] [address] Cornejo, Viral V, DO Acute non-recurrent sinusitis of other sinus (Primary Dx); Need for influenza vaccination; Seasonal allergic rhinitis due to pollen; Gastroesophageal reflux disease without esophagitis; Unspecified essential hypertension; Acquired hypothyroidism 8 Refill [facility] [facility] [address] [place] [address] Cornejo, Viral V, DO Medication Refill 8 Refill [facility] [place] [address] Cornejo, Viral V, DO Medication Refill 8 12:59 PM EDT - 8 11:59 PM EDT Hospital Encounter [facility] [address] [place], [place] [id number] Cornejo, Viral V, DO Abnormal mammogram; Breast calcification, right Discharge Disposition: Home or Self Care 8 1:08 PM EDT - 8 11:59 PM EDT Hospital Encounter [facility] [place] [facility] [address] [place] [address] Acquired hypothyroidism Discharge Disposition: Home or Self Care 8 Telephone [facility] [address] [place] [address] Jameson Terrazas LPN Orders 8 Refill [facility] [place] [address] [address] Cornejo, Viral V, DO Medication Refill 8 1:10 PM EDT Office Visit [facility] [address] [address] Cornejo, Viral V, DO Encounter for screening mammogram for breast cancer (Primary Dx); Gastroesophageal reflux disease with esophagitis; Acquired hypothyroidism; Hyperlipidemia with target LDL less than 100; Insomnia, persistent; Essential hypertension; Need for shingles vaccine 8 Orders Only [address] [address] Sandy Chen LPN Hyperlipidemia, unspecified hyperlipidemia type (Primary Dx); Elevated hemoglobin A1c 8 Refill [facility] [address] [address] Cornejo, Viral V, DO Medication Refill 8 3:15 PM EDT - 8 11:59 PM EDT Hospital Encounter [facility] [address] [place] [address] Unspecified essential hypertension; Hypertriglyceridemia Discharge Disposition: Home or Self Care 8 1:25 PM EDT - 8 11:59 PM EDT Hospital Encounter [facility] [address] [facility] [address], [place] [id number] Rajesh Roca MD Emg, Mason Edg Numbness and tingling of both feet (Primary Dx) Discharge Disposition: Home or Self Care 8 12:05 PM EDT - 8 1:24 PM EDT Hospital Encounter [facility] [place] [address] Rajesh Roca MD Lumbar radiculopathy Discharge Disposition: Home or Self Care 8 Refill [facility] [place] [address] Cornejo, Viral V, DO Medication Refill 8 2:00 PM EDT Office Visit [facility] [address] [address] Cornejo, Viral V, DO Chronic maxillary sinusitis (Primary Dx); Unspecified essential hypertension; Insomnia, persistent; Hyperlipidemia with target LDL less than 100; Acquired hypothyroidism; Fibromyalgia; Elevated uric acid in blood; Hypertriglyceridemia; Well adult exam 8 Refill [facility] [address] [address] [place], A Medication Refill 8 Telephone [facility] [address] [address] Rio Quintero MD Medication Refill 8 Refill [facility] [address] [place] [address] Ramonita Hernadez APRN Medication Refill 8 Telephone [facility] [facility] [address] [place] [address] Cornejo, Viral V, DO Other ( RUQ) 8 Telephone [facility] [address] [address] Rajesh Gutierrez MD PHD Medication Question 8 2:00 PM EDT Office Visit [facility] [address] [address] Rio Quintero MD Chronic maxillary sinusitis (Primary Dx) 8 12:10 PM EDT Office Visit [facility] [address] [place] [address] Carrillo Manriquez MD Chronic maxillary sinusitis (Primary Dx) 8 4:45 PM EDT - 8 11:59 PM EDT Hospital Encounter [facility] [address] [facility] [place] [address] Constipation, chronic Discharge Disposition: Home or Self Care 8 Refill [facility] [facility] [address] [place] [address] Cornejo, Viral V, DO Medication Refill 8 Telephone [facility] [address] [place] [address] Carrillo Manriquez MD Results 8 10:45 AM EDT - 8 11:59 PM EDT Hospital Encounter [facility] [address] [place] [address] Carrillo Manriquez MD Chronic sinusitis, unspecified location Discharge Disposition: Home or Self Care 8 Patient Outreach [facility] [place] [address] [place] [address] Danna Chamorro LPN ED Follow-Up Call 8 8:26 PM EDT - 8 11:53 PM EDT Emergency [facility] [address] [place], [place] [id number] Kristopher Richard MD Upper abdominal pain (Primary Dx) Discharge Disposition: Home or Self Care 8 Telephone [facility] [address] [address] Rajesh Gutierrez MD PHD Medication Question 8 Telephone [facility] [address] [address] Rajesh Gutierrez MD PHD Results (BLOOD WORK) 8 1:35 PM EDT - 8 11:59 PM EDT Hospital Encounter [facility] [address] [place] [address] Fatty liver; Obesity, Class III, BMI 40-49.9 (morbid obesity) (HCC) Discharge Disposition: Home or Self Care 8 12:30 PM EDT Office Visit [facility] [address] [place] [address] Rajesh Gutierrez MD PHD Right upper quadrant abdominal pain (Primary Dx); Fatty liver; Obesity, Class III, BMI 40-49.9 (morbid obesity) (HCC) 8 Telephone [facility] [place] [address] [place] [address] Sandy Chen LPN Other 8 Telephone [facility] [place] [address] [place] [address] Senait Martínez RMA Abdominal Pain 8 Orders Only [facility] [address] [place] [address] Jameson Terrazas LPN Fatty liver (Primary Dx); Increased potassium in the blood 8 1:30 PM EDT - 8 1:32 PM EDT Hospital Encounter [facility] [address] [facility] [place] [address] Cornejo, Viral V, DO Screening for diabetes mellitus (DM); Blood glucose elevated Discharge Disposition: Home or Self Care 8 1:34 PM EDT - 8 11:59 PM EDT Hospital Encounter [facility] [address] [place] [address] Ramonita Hernadez APRN Periumbilical abdominal pain; Abdominal distension Discharge Disposition: Home or Self Care 8 1:33 PM EDT Hospital Encounter [facility] Ultrasound [address] [place] [address] Cornejo, Viral V, DO Epigastric abdominal pain Discharge Disposition: Home or Self Care 8 Telephone [facility] [place] [address] [place] [address] Cornejo, Viral V, DO Lab Orders; Vaginitis 8 Refill [facility] [address] [place] [address] Carrillo Manriquez MD Medication Refill 8 Telephone [facility] [place] [address] [place] [address] Sandy Chen LPN Abdominal Pain 8 Orders Only [facility] [place] [address] [place] [address] Laurie Rodriguez RMA Hyperlipidemia with target LDL less than 100 (Primary Dx) 8 Refill [facility] [place] [address] [place] [address] Ramonita Hernadez APRN Medication Refill 8 Telephone [facility] [place] [address] [place] [address] Cornejo, Viral V, DO Other (Xray tracking ) 8 Refill [facility] [place] [address] [place] [address] Cornejo, Viral V, DO Medication Refill 8 Telephone [facility] [address] [place] [address] Carrillo Manriquez MD Sinusitis 8 4:55 PM EST - 8 11:59 PM EST Hospital Encounter [facility] [place] [facility] [address] [place] [address] Fibromyalgia; Acquired hypothyroidism; Unspecified essential hypertension; Gastroesophageal reflux disease with esophagitis; Chronic sinusitis, unspecified location; Epigastric abdominal pain Discharge Disposition: Home or Self Care 8 4:00 PM EST Office Visit [facility] [place] [address] [place] [address] Cornejo, Viral V, DO Chronic sinusitis, unspecified location (Primary Dx); Fibromyalgia; Acquired hypothyroidism; Unspecified essential hypertension; Gastroesophageal reflux disease with esophagitis; Epigastric abdominal pain 8 Refill [facility] [address] [place] [address] Cornejo, Viral V, DO Medication Refill 8 Telephone [facility] [address] [place] [address] Carrillo Manriquez MD Results 8 1:30 PM EST Office Visit ENT[address] [place] [address] Carrillo Manriquez MD Acute maxillary sinusitis, recurrence not specified (Primary Dx) 8 Refill [facility] 405 [place] [place] [address] Ramonita Hernadez APRN Medication Refill 7 Refill [facility] [place] [facility] [address] [facility] [place] [address] Cornejo, Viral V, DO Medication Refill [address] [place] [address] Carrlilo Manriquez MD Results 7 10:25 AM EST Office Visit ENT[address] [phone] Carrillo Manriquez MD Acute maxillary sinusitis, recurrence not specified (Primary Dx); Chronic maxillary sinusitis; History of sinus surgery 7 Refill [facility] [facility] [address] [facility] [place] [address] Cornejo, Viral V, DO Medication Refill 7 Telephone [facility] [place] [facility] [address] [facility] [place] [address] Cornejo, Viral V, DO Other (CT Abdomen) 7 Refill [facility] [facility] [address] [place] [address] Cornejo, Viral V, DO Medication Refill 7 Refill [facility] [facility] [address] [facility] [place] [address] Sandy Chen LPN Medication Refill 7 Refill [facility] [facility] [address] [facility] [place] [place] [address] Cornejo, Viral V, DO Medication Refill 7 3:03 PM EDT - 7 11:59 PM EDT Hospital Encounter [facility] [place] [address] [place] [address] Malaise and fatigue; Screening, anemia, deficiency, iron; Hyperglycemia Discharge Disposition: Home or Self Care 7 3:20 PM EDT Office Visit [facility] [place] [address] [address] Ramonita Hernadez APRN WILLIE (generalized anxiety disorder) (Primary Dx); Need for influenza vaccination; Nausea; Unspecified essential hypertension; Gastroesophageal reflux disease without esophagitis; Periumbilical abdominal pain; Acquired hypothyroidism; Malaise and fatigue; Dysuria; High risk medications (not anticoagulants) long-term use; Screening, anemia, deficiency, iron; Hyperglycemia; Abdominal distension 7 11:15 AM EDT Office Visit [facility] [address] [address] Carrillo Manriquez MD Chronic maxillary sinusitis (Primary Dx) 7 Refill [facility] [place] [address] [address] Cornejo, Viral V, DO Medication Refill 7 Refill [facility] [place] [address] [address] Lora Domínguez RMA Medication Refill 7 Telephone [facility] [place] [address] [address] Carrillo Manriquez MD Abdominal Pain 7 Refill [facility] [place] [address] [place] [address] Cornejo, Viral V, DO Medication Refill 7 Telephone [facility] [place] [address] Senait Martínez RMA Nausea 7 12:45 PM EDT Office Visit ENT[address] [place] [address] Carrillo Manriquez MD Chronic maxillary sinusitis (Primary Dx) 7 Orders Only [facility] [facility] 405 [facility] [place] [address] Donna Galloway, RMA Nausea (Primary Dx) 7 Telephone [facility] [facility] 405 [facility] [place] [address] Cornejo, Viral V, DO Other (med refill ) 7 Refill [facility] [address] [facility] [place] [address] Cornejo, Viral V, DO Medication Refill [address] [place] [address] Carrillo Manriquez MD Results 7 Telephone [facility] [address] [facility] [address] Senait Martínez, RMA Other 7 4:14 PM EDT - 7 11:59 PM EDT Hospital Encounter [facility] [place] [address] Chronic maxillary sinusitis Discharge Disposition: Home or Self Care 7 Telephone [facility] 405 [place] [address] Cornejo, Viral V, DO Other (XR Wrist Left Pa Lateral and Oblique) 7 12:45 PM EDT Office Visit [facility] [address] [place] [address] Carrillo Manriquez MD Chronic maxillary sinusitis (Primary Dx) 7 8:00 AM EDT - 7 8:45 AM EDT Surgery [facility] [place] [address] Rajesh Gutierrez MD PHD ESOPHAGOGASTRODUODENOSCOPY (ANESTHESIA) 7 8:04 AM EDT Anesthesia Event [facility] [place] [address] Semaj Vega MD Merkle Serey, Jennifer L, NP 7 6:37 AM EDT - 7 11:59 PM EDT Hospital Encounter [facility] [place] [address] Rajesh Gutierrez MD PHD Discharge Disposition: Home or Self Care 7 Orders Only [facility] [facility] [address] [place] [address] Jameson Terrazas LPN Abnormal nasal finding (Primary Dx) 7 10:20 AM EDT Office Visit [facility] [address] [phone] Torrey Sanchez MD Lipoma of left lower extremity 7 Telephone [facility] [address] [place] [address] Yaneth Gonsalez, RMA Gout 7 2:27 PM EDT - 7 11:59 PM EDT Hospital Encounter [facility] [place] [address] [place] [address] Acquired hypothyroidism; Hyperglycemia; Hyperlipidemia with target LDL less than 130; Left wrist pain; Need for hepatitis C screening test; Acute non-recurrent sinusitis of other sinus; Unspecified essential hypertension; Fibromyalgia Discharge Disposition: Home or Self Care 7 1:50 PM EDT Office Visit [facility] [address] [place] [address] Jose Cornejo V, DO Acute non-recurrent sinusitis of other sinus (Primary Dx); Unspecified essential hypertension; Fibromyalgia; Acquired hypothyroidism; Need for hepatitis C screening test; Left wrist pain 7 12:45 PM EDT Office Visit [facility] [address] [address] Kristopher Crump MD Unspecified essential hypertension (Primary Dx); MICHAEL (obstructive sleep apnea); Fibromyalgia; Class 3 obesity due to excess calories with serious comorbidity and body mass index (BMI) of 50.0 to 59.9 in adult ([facility]) 7 Refill [facility] [facility] [address] [place] [address] Cornejo, Viral V, DO Medication Refill 7 Refill [facility] [address] [place] [address] Cornejo, Viral V, DO Medication Refill 7 Refill [facility] [address] [place] [address] Ramonita Hernadez APRN Medication Refill 7 Refill [facility] [address] [facility] [address] Semaj Ballesteros MD Medication Refill 7 Refill [facility] [facility] [address] [place] [address] Cornejo, Viral V, DO Medication Refill 7 Telephone [facility] [address] [address] Rajesh Gutierrez MD PHD Cancellation 7 Telephone [facility] [address] [address] Rajesh Gutierrez MD PHD Medication Management (Suprep) 7 Telephone [facility] [address] [address] Rajesh Gutierrez MD PHD EGD (scheduling); Colonoscopy 7 Refill [facility] [address] [place] [address] Semaj Ballesteros MD Medication Refill 7 3:45 PM EDT Office Visit [facility] [address] [phone] Rajesh Gutierrez MD PHD Lower abdominal pain (Primary Dx); Rectal pain; Hematochezia; Constipation due to opioid therapy; Irritable bowel syndrome with constipation; Esophageal dysphagia 7 Telephone [facility] [address] [place] [address] [address] [place] [address] Rajesh Gutierrez MD PHD Other 7 1:50 PM EDT Office Visit [facility] 405 [place] [place] [address] Cornejo, Viral V, DO Gastroesophageal reflux disease without esophagitis (Primary Dx); WILLIE (generalized anxiety disorder); Unspecified essential hypertension; Acquired hypothyroidism; Lipoma of left upper extremity 7 Telephone [facility] [facility] [address] [facility] [place] [address] Jameson Terrazas LPN Medication Refill 7 Refill [facility] [address] [place] [place] [address] Laurie Rodriguez RMA Medication Refill 7 3:00 PM EDT Office Visit [facility] [facility] [address] [place] [place] [address] AregagandeeptRamonita APRN Diarrhea, unspecified type (Primary Dx); Fungal dermatitis; Hyperlipidemia with target LDL less than 130; Obesity, Class III, BMI 40-49.9 (morbid obesity) (HCC); BMI 45.0-49.9, adult (HCC); Hyperglycemia; Acquired hypothyroidism; Family history of colon cancer; History of colon polyps 7 Refill [facility] [address] [facility] [place] [address] Cornejo, Viral V, DO Medication Refill 7 Telephone [facility] [facility] [address] [facility] [place] [address] Sandy Chen LPN Cough; Medication Refill 7 Orders Only [facility] [address] [facility] [place] [address] Senait Martínez RMA Gastroesophageal reflux disease with esophagitis (Primary Dx) 7 Telephone [facility] [address] [place] [address] Jameson Terrazas LPN Medication Refill 7 Orders Only [facility] [facility] [address] [place] [place] [address] Jameson Terrazas LPN Vitamin D deficiency (Primary Dx) 7 2:36 PM EST - 7 11:59 PM EST Hospital Encounter [facility] [place] [facility] [address] [place] [phone] Vitamin D deficiency; Anemia, unspecified type Discharge Disposition: Home or Self Care 7 1:40 PM EST Office Visit [facility] 405 [place] [place] [address] Cornejo, Viral V, DO Unspecified essential hypertension (Primary Dx); WILLIE (generalized anxiety disorder); Insomnia, persistent; Acquired hypothyroidism; Obesity, Class III, BMI 40-49.9 (morbid obesity) ([facility]); Generalized osteoarthritis of multiple sites; Vitamin D deficiency 7 Telephone [facility] [address] [place] [place] [address] Senait Martínez RMA Medication Refill 7 Telephone [facility] [address] [place] [place] [address] Ramonita Hernadez APRN Vaginitis 7 Orders Only [facility] [address] [facility] [place] [address] Adam Moon RMA Yeast infection (Primary Dx) 7 3:30 PM EST Office Visit [facility] [facility] [address] [facility] [place] [address] Ramonita Hernadez, COMMERCIAL TELLER Acute non-recurrent pansinusitis (Primary Dx); Acute bronchitis, unspecified organism; Fibromyalgia 7 Orders Only [facility] [place] [facility] [address] [place] [address] Yaneth Gonsalez, RMA WILLIE (generalized anxiety disorder) 7 Orders Only [facility] [facility] [address] [place] [address] Chen, Sandy, AIRPORT CONTROL OPERATOR WILLIE (generalized anxiety disorder) (Primary Dx) 7 Orders Only [facility] [place] [facility] [address] [place] [address] Yaneth Gonsalez, RMKaren Nausea and vomiting, intractability of vomiting not specified, unspecified vomiting type (Primary Dx); WILLIE (generalized anxiety disorder) 7 Refill [facility] [place] [facility] [address] [place] [address] Chen, Sandy, AIRPORT CONTROL OPERATOR Medication Refill 7 Orders Only [facility] [address] [place] [address] Ramonita Hernadez APRN Fibromyalgia (Primary Dx) 6 Orders Only [facility] [facility] [address] [place] [address] Jenni Feliz, RMKaren WILLIE (generalized anxiety disorder) 6 Refill [facility] [place] [facility] [address] [place] [address] Cornejo, Viral V, DO Medication Refill 6 Telephone [facility] [place] [facility] [address] [place] [address] Chen, Sandy, AIRPORT CONTROL OPERATOR Medication Problem 6 Orders Only [facility] [place] [facility] [address] [place] [address] Chen, Sandy, AIRPORT CONTROL OPERATOR Insomnia, persistent 6 Orders Only [facility] [place] 405 [place] [address] Juliane Guzman RMA WILLIE (generalized anxiety disorder) 6 Refill [facility] [place] [facility] [address] [place] [address] Mk TalatDAVID princeN Medication Refill 6 Refill [facility] 405 [place] [address] Cornejo, Viral V, DO Medication Refill 6 4:05 PM EST - 6 11:59 PM EST Hospital Encounter [facility] [address] [place] [address] Pre-op examination; Surgery, elective Discharge Disposition: Home or Self Care 6 Refill [facility] [place] [address] [place] [address] Cornejo, Viral V, DO Medication Refill 6 2:00 PM EST Office Visit [facility] [place] [address] [place] [address] Cornejo, Viral V, DO Pre-op examination (Primary Dx); Strain of right knee, initial encounter; Osteoarthritis of right knee, unspecified osteoarthritis type; Surgery, elective 6 Refill [facility] [place] [address] [place] [address] Cornejo, Viral V, DO Medication Refill 6 9:45 AM EST - 6 11:59 PM EST Hospital Encounter [facility] [address] [place] [address] Kristopher Crump MD Unspecified essential hypertension; Morbid obesity due to excess calories (HCC); Precordial pain; MICHAEL (obstructive sleep apnea); Preop cardiovascular exam Discharge Disposition: Home or Self Care 6 9:00 AM EST - 6 9:44 AM EST Hospital Encounter [facility] STRESS TEST [address] [place] [address] Kristopher Crump MD Unspecified essential hypertension; Morbid obesity due to excess calories (HCC); Precordial pain; MICHAEL (obstructive sleep apnea); Preop cardiovascular exam Discharge Disposition: Home or Self Care 6 7:52 AM EST - 6 8:59 AM EST Hospital Encounter [facility] [address] [place] [address] Kristopher Crump MD Unspecified essential hypertension; Morbid obesity due to excess calories (HCC); Precordial pain; MICHAEL (obstructive sleep apnea); Preop cardiovascular exam Discharge Disposition: Home or Self Care 6 10:15 AM EST Office Visit [facility] [place] [address] [place] [address] Kristopher Crump MD Unspecified essential hypertension (Primary Dx); Morbid obesity due to excess calories (HCC); Precordial pain; MICHAEL (obstructive sleep apnea); Preop cardiovascular exam 6 Refill [facility] [facility] [address] [place] [address] Senait Martínez RMA Medication Refill 6 11:30 AM EDT - 6 11:59 PM EDT Hospital Encounter [facility] [address] [place] [address] Cornejo, Viral V, DO Pelvic pain Discharge Disposition: Home or Self Care 6 Orders Only [facility] [place] [facility] [address] [place] [address] Senait Martínez RMA Anemia, unspecified type (Primary Dx) 6 7:20 PM EDT - 6 11:59 PM EDT Hospital Encounter [facility] [place] [address] Pelvic pain; Insomnia, persistent; Acquired hypothyroidism; Unspecified essential hypertension; Chronic fatigue; Hyperglycemia Discharge Disposition: Home or Self Care 6 1:10 PM EDT Office Visit [address] [address] Cornejo, Viral V, DO Pelvic pain (Primary Dx); Insomnia, persistent; Acquired hypothyroidism; Unspecified essential hypertension; Chronic fatigue; Hyperglycemia; Flu vaccine need 6 Patient Outreach [address] [address] Cornejo, Viral V, DO ED Follow-Up Call 6 1:26 PM EDT - 6 3:45 PM EDT Emergency [facility] [place] [address] Iftikhar Pike MD Nonspecific chest pain (Primary Dx); Cervical radicular pain Discharge Disposition: Home or Self Care [address] [address] Cornejo, Viral V, DO Medication Refill 6 Refill [facility] [place] [address] [address] Cornejo, Viral V, DO Medication Refill [address] [address] Cornejo, Viral V, DO Medication Management [address] [address] Cornejo, Viral V, DO Results 6 Orders Only [facility] [address] [place] [address] Cornejo, Viral V, DO Osteoarthritis, unspecified osteoarthritis type, unspecified site (Primary Dx) 6 9:01 AM EDT - 6 11:59 PM EDT Hospital Encounter [facility] [address] [place] [address] Diabetes type 2, controlled (HCC) Discharge Disposition: Home or Self Care 6 9:00 AM EDT Hospital Encounter [facility] [address] [place] [address] Right knee pain Discharge Disposition: Home or Self Care 6 Telephone [facility] [place] [address] Senait Martínez, RMA Other 6 10:41 PM EDT - 6 11:59 PM EDT Hospital Encounter [facility] [place] [address] Encounter for medication management Discharge Disposition: Home or Self Care 6 1:20 PM EDT Office Visit [facility] [place] [address] Cornejo, Viral V, DO WILLIE (generalized anxiety disorder) (Primary Dx); Encounter for medication management; Insomnia, persistent; Diabetes type 2, controlled (HCC); EIC (epidermal inclusion cyst); Right knee pain; Dysuria 6 Refill [facility] [place] [address] Sandy Chen LPN Medication Refill 6 Refill [facility] [place] [address] Cornejo, Viral V, DO Medication Refill 6 Telephone [facility] [place] [address] Sandy Chen LPN Other 6 Refill [facility] [place] [address] Cornejo, Viral V, DO Medication Refill 6 Refill [facility] [place] [address] Cornejo, Viral V, DO Medication Refill 6 Refill [facility] [place] [address] Cornejo, Viral V, DO Medication Refill 6 6:00 PM EDT - 6 11:59 PM EDT Hospital Encounter [facility] [address] [place] [address] Acquired hypothyroidism Discharge Disposition: Home or Self Care 6 3:50 PM EDT [facility] [address] Cornejo, Viral V, DO WILLIE (generalized anxiety disorder) (Primary Dx); Gastroesophageal reflux disease without esophagitis; Unspecified essential hypertension; Fibromyalgia; Obesity, morbid, BMI 50 or higher (HCC); Acquired hypothyroidism; Coronary artery spasm 6 Telephone [facility] [place] [address] Lora Domínguez, RMA Other 6 Refill [facility] [place] [address] Cornejo, Viral V, DO Medication Refill 6 Refill [facility] [place] [address] Cornejo, Viral V, DO Medication Refill 6 Refill [facility] [place] [address] Cornejo, Viral V, DO Medication Refill 6 Refill [facility] [address] [address] Cornejo, Viral V, DO Medication Refill 6 Refill [facility] [place] [address] Cornejo, Viral V, DO Medication Refill 6 2:28 PM EST - 6 11:59 PM EST Hospital Encounter [facility] [place] [address] Acquired hypothyroidism; Unspecified essential hypertension Discharge Disposition: Home or Self Care 6 9:00 AM EST Office Visit [facility] [place] [facility] [address] [place] [address] Sacha Keller MD WILLIE (generalized anxiety disorder) (Primary Dx); Acquired hypothyroidism; Unspecified essential hypertension; Achilles bursitis, left; MICHAEL (obstructive sleep apnea) 6 [facility]ill [facility] [address] [place] [address] Ramonita Noriega, Karen Medication Refill 5 Refill [facility] [place] [facility] [address] [place] [place] [address] Jameson Terrazas LPN Medication Refill 5 Refill [facility] [address] [place] [address] Cornejo, Viral V, DO Medication Refill 5 Refill [facility] [address] [place] [address] Cornejo, Viral V, DO Medication Refill 5 Refill [facility] [address] [place] [address] Cornejo, Viral V, DO Medication Refill 5 Refill [facility] [address] [place] [place] [address] Cornejo, Viral V, DO Medication Refill 5 Refill [facility] [address] [place] [address] Cornejo, Viral V, DO Medication Refill 5 Telephone [facility] [address] [place] [place] [address] Jameson Terrazas LPN Other 5 Refill [facility] [address] [place] [place] [address] Jameson Terrazas, AIRPORT CONTROL OPERATOR Medication Refill 5 Telephone [facility] [address] [place] [address] ChenSandy, AIRPORT CONTROL OPERATOR Other 5 2:00 PM EDT Office Visit [facility] [address] [place] [address] Cornejo, Viral V, DO WILLIE (generalized anxiety disorder) (Primary Dx); Acute bronchitis, unspecified organism; Need for influenza vaccination; Coronary artery spasm; Yeast vaginitis 5 Refill [facility] [address] [place] [address] Cornejo, Viral V, DO Medication Refill 5 [address] [facility] [place] [place] [address] Cornejo, Viral V, DO Medication Refill 5 Orders Only [facility] [address] [place] [address] Kathryn Chua RMA WILLIE (generalized anxiety disorder) (Primary Dx) 5 [facility] [address] [place] [address] Cornejo, Viral V, DO Medication Refill 5 1:28 PM EDT - 5 11:59 PM EDT Hospital Encounter [facility] MRI [address] [place] [address] Isaac Washington MD Knee pain, acute, right; Arthritis Discharge Disposition: Home or Self Care 5 Abstract [facility] [address] [place] [address] Ermias Vásquez, PLATE PUT IN WORKER 5 Telephone [facility] [address] [place] [address] Sanna Quan RMA Medication Change 5 Refill [facility] [facility] [address] [place] [address] Cornejo, Viral V, DO Medication Refill 5 Refill [facility] [place] [address] [place] [address] Cornejo, Viral V, DO Medication Refill 5 Refill [facility] [address] [place] [address] Cornejo, Viral V, DO Medication Refill 5 3:15 PM EDT - 5 11:59 PM EDT Hospital Encounter [facility] [address] [place] [address] Right knee pain Discharge Disposition: Home or Self Care 5 [facility] [place] [address] Ramonita Noriega, RMA Right knee pain (Primary Dx) 5 Refill [facility] [place] [place] [address] Cornejo, Viral V, DO Medication Refill 5 Telephone [facility] [address] [place] [address] Sandy Chen, AIRPORT CONTROL OPERATOR Other 5 Refill [facility] [address] [place] [address] Cornejo, Viral V, DO Medication Refill 5 Refill [facility] [place] [place] [address] Jenni Feliz, RMA Medication Refill 5 2:40 PM EDT Office Visit [facility] [place] [address] [place] [address] Cornejo, Viral V, DO Unspecified essential hypertension (Primary Dx); Gastroesophageal reflux disease without esophagitis; Osteoarthritis of left knee, unspecified osteoarthritis type; DDD (degenerative disc disease), lumbar; Morbid obesity (HCC) 5 Refill [facility] [address] [place] [address] Cornejo, Viral V, DO Medication Refill 5 Telephone [facility] [place] [address] [place] [address] Cornejo, Viral V, DO Medication Refill 5 Refill [facility] [address] [place] [address] Cornejo, Viral V, DO Medication Refill 5 Orders Only [facility] [facility] [address] [place] [address] Chen, Sandy, AIRPORT CONTROL OPERATOR Nausea with vomiting (Primary Dx) 5 [facility] [place] [address] Chen, Sandy, AIRPORT CONTROL OPERATOR Medication Refill 5 [facility] [place] [address] Cornejo, Viral V, DO Medication Refill 5 [facility] [place] [address] Cornejo, Viral V, DO Other (referral-neuro) 5 7:42 PM EDT - 5 11:59 PM EDT Hospital Encounter [facility] PROC[facility] [place] [address] Other abnormal glucose (Primary Dx); Unspecified hypothyroidism Discharge Disposition: Home or Self Care 5 2:40 PM EDT Clinical Support [facility] [address] [place] [address] Jenni Hernandez, RMA Elevated glucose; Unspecified hypothyroidism 5 [facility]phone [facility] [address] [place] [address] Chen, Sandy, AIRPORT CONTROL OPERATOR Medication Refill 5 Orders Only [address] [place] [address] Jenni Hernandez, RMA Elevated glucose (Primary Dx); Unspecified hypothyroidism 5 1:05 PM EDT - 5 11:59 PM EDT Hospital Encounter [facility] [address] [place] [address] Unspecified hypothyroidism; Routine check-up Discharge Disposition: Home or Self Care 5 Telephone [facility] [facility] [address] [place] [address] Jenni Hernandez, RMA Medication Change 5 Refill [facility] [place] [address] [place] [address] Cornejo, Viral V, DO Medication Refill 5 8:38 PM EDT - 5 11:59 PM EDT Hospital Encounter [facility] PROCESSING [facility] [address] Encounter for long-term (current) use of other medications Discharge Disposition: Home or Self Care 5 1:00 PM EDT Office Visit [facility] [place] [address] [place] [address] Cornejo, Viral V, DO WILLIE (generalized anxiety disorder) (Primary Dx); Unspecified hypothyroidism; Routine check-up; Chest pain, unspecified; Encounter for long-term (current) use of other medications; HTN (hypertension); Migraine; Morbid obesity (HCC); Esophageal reflux; Fibromyalgia 5 Telephone [facility] [place] [address] [place] [address] Cornejo, Viral V, DO Other 5 Telephone [facility] [address] [place] [address] Sandy Chen LPN Medication Refill 5 12:48 PM EST - 5 11:59 PM EST Hospital Encounter [facility] MRI [address] [place] [address] Rajesh Roca MD Thoracic or lumbosacral neuritis or radiculitis, unspecified Discharge Disposition: Home or Self Care 5 Refill [facility] [address] [place] [address] Cornejo, Viral V, DO Medication Refill 5 3:20 PM EST Office Visit [facility] [address] [place] [address] Cornejo, Viral V, DO WILLIE (generalized anxiety disorder) (Primary Dx); Vertigo; HTN (hypertension); Rib pain on right side 5 Refill [facility] [facility] [address] [place] [place] [address] Cornejo, Viral V, DO Medication Refill 5 Refill [facility] [address] [place] [place] [address] Cornejo, Viral V, DO Medication Refill 5 1:15 PM EST - 5 11:59 PM EST Hospital Encounter [facility] Mammography [address] [place] [address] Cornejo, Viral V, DO Breast calcification, right Discharge Disposition: Home or Self Care 4 Telephone [facility] [place] [address] [place] [address] Sandy Chen LPN Medication Refill 4 Orders Only [facility] [address] [place] [address] Tesha Ramon Scribe Fibromyalgia (Primary Dx); Sleep deprivation 4 Telephone [facility] [address] [place] [address] Rosio Head RN Abnormal Radiology 4 Orders Only [facility] [place] [address] [place] [address] Cornejo, Viral V, DO Osteoarthritis of left knee (Primary Dx) 4 Orders Only [facility] [place] [facility] [address] [place] [address] Cornejo, Viral V, DO Osteoarthritis of knee (Primary Dx); Abnormal mammogram 4 2:17 PM EST - 4 11:59 PM EST Hospital Encounter [facility] [address] [place] [address] Cornejo, Viral V, DO Left arm pain; Knee pain, acute, unspecified laterality Discharge Disposition: Home or Self Care 4 2:15 PM EST - 4 2:16 PM EST Hospital Encounter [facility] Mammography [address] [place] [address] Cornejo, Viral V, DO Other screening mammogram Discharge Disposition: Home or Self Care 4 Orders Only [facility] [address] [place] [place] [address] Jameson Terrazas LPN Knee pain, acute, unspecified laterality (Primary Dx) 4 Patient Outreach [facility] [address] [place] [address] Dennise Arboleda Advice Only 4 Refill [facility] [address] [place] [place] [address] Jameson Terrazas LPN Other 4 1:10 PM EST Office Visit [facility] [address] [place] [address] Cornejo, Viral V, DO WILLIE (generalized anxiety disorder) (Primary Dx); Migraine; Bilateral lower abdominal cramping; GERD (gastroesophageal reflux disease); Dysphagia; DDD (degenerative disc disease); Left arm pain 4 Telephone [facility] [address] [place] [place] [address] Jenni Hernandez RMA Migraine 4 Telephone [facility] [facility] [address] [place] [address] Jameson Terrazas LPN Medication Refill 4 Telephone [facility] [address] [place] [address] Sandy Chen LPN Other 4 Telephone [facility] [place] [address] [place] [address] Jameson Terrazas LPN Other 4 8:21 PM EDT - 4 11:59 PM EDT Hospital Encounter [facility] PROCESSING [place] [address] Malar rash; Postmenopausal Discharge Disposition: Home or Self Care 4 1:50 PM EDT Office Visit [facility] [address] [facility] [place] [place] [address] Cornejo, Viral V, DO Malar rash (Primary Dx); UTI (lower urinary tract infection); Flank pain; Need for prophylactic vaccination and inoculation against influenza; WILLIE (generalized anxiety disorder); Migraine; Postmenopausal 4 Refill [facility] [place] [facility] [address] [place] [address] Cornejo, Viral V, DO Medication Refill 4 Telephone [facility] [address] [facility] [place] [address] Sandy Chen LPN Other 4 Telephone [facility] [facility] [address] [facility] [place] [address] Cornejo, Viral V, DO Other (referral-Dr Shankar) 4 Telephone [facility] [place] [facility] [address] [place] [address] Den Kingston MA Other 4 Refill [facility] [address] [place] [address] Jenni Feliz RMA Other 4 Telephone [facility] [facility] [address] [facility] [place] [address] Beach, Jaunita, AIRPORT CONTROL OPERATOR Medication Refill 4 Telephone [facility] [facility] [address] [place] [address] Den Kingston MA Medication Refill 4 Telephone [facility] [place] [address] [place] [place] [address] Talat Terrazasangelicaoswald, AIRPORT CONTROL OPERATOR Other 4 Telephone [facility] [place] [address] [place] [place] [address] [place] City[place]at[place], AIRPORT CONTROL OPERATOR Other 4 Refill [facility] [place] [address] [place] [address] [place] CityTalatangelicaos[place], AIRPORT CONTROL OPERATOR Medication Refill 4 1:10 PM EDT Office Visit [facility] [place] [address] [place] [address] Cornejo, Viral V, DO Type II or unspecified type diabetes mellitus without mention of complication, not stated as uncontrolled (HCC) (Primary Dx); WILLIE (generalized anxiety disorder); UTI (urinary tract infection); Urgency of urination; GERD (gastroesophageal reflux disease) 4 Telephone [facility] [place] [address] [place] [address] Ramonita Noriega, RMA Other 4 Telephone [facility] [place] [address] [place] [address] Ramonita Noriega, A Medication Refill 4 Telephone [facility] [place] [facility] [address] [place] [address] Jenni Hernandez, EDGAR Medication Management 4 3:50 PM EDT - 4 11:59 PM EDT Hospital Encounter [facility] [address] [facility] [place] [address] Acute renal insufficiency (Primary Dx) Discharge Disposition: Home or Self Care 4 2:40 PM EDT Office Visit [facility] [place] [address] [place] [place] [address] Cornejo, Viral V, DO WILLIE (generalized anxiety disorder) (Primary Dx); HTN (hypertension); Acute renal insufficiency; Unspecified hypothyroidism; Fibromyalgia; GERD (gastroesophageal reflux disease); IBS (irritable bowel syndrome); Abdominal pain, other specified site; Dysuria; UTI (lower urinary tract infection) 4 1:46 AM EDT - 4 1:35 PM EDT Hospital Encounter [facility] [address] [place] [address] Nisa Townsend MD Acute renal insufficiency (Primary Dx); Chest pain, unspecified; Chronic pain; Fibromyalgia; Type II or unspecified type diabetes mellitus without mention of complication, not stated as uncontrolled (HCC); Unspecified essential hypertension; Unspecified hypothyroidism Discharge Disposition: Home or Self Care 4 9:50 PM EDT - 4 12:58 AM EDT Emergency [facility] [address] [facility] [place] [address] Jared James MD Chest pain (Primary Dx); Chronic pain Discharge Disposition: Short Term Hospital 4 [facility] [address] Cornejo, Viral V, DO Referral 4 Telephone [facility] [place] [address] Sandy Chen LPN Other 4 7:31 PM EDT - 4 11:59 PM EDT Hospital Encounter [facility] PROCESSING [facility] [address] Type II or unspecified type diabetes mellitus without mention of complication, not stated as uncontrolled (HCC); Pruritic rash; Unspecified hypothyroidism Discharge Disposition: Home or Self Care 4 4:50 PM EDT Office Visit [facility] [place] [address] [address] Cornejo, Viral V, DO Type II or unspecified type diabetes mellitus without mention of complication, not stated as uncontrolled (HCC) (Primary Dx); UTI (urinary tract infection); Other screening mammogram; Pruritic rash; Unspecified hypothyroidism 4 Telephone [facility] [address] [place] [address] Kristopher Crump MD Other 4 5:07 PM EDT - 4 6:36 PM EDT Emergency [facility] [address] [place] [address] Dania Lovell MD Heel spur (Primary Dx) Discharge Disposition: Home or Self Care 4 Refill [facility] [address] [place] [address] Jameson Terrazas LPN Other 4 Refill [facility] [address] [place] [address] Cornejo, Viral V, DO Medication Refill 4 3:26 PM EST - 4 5:11 PM EST Emergency [facility] [address] [place] [address] Debbie Figueroa MD Migraine headache (Primary Dx) Discharge Disposition: Home or Self Care 4 Telephone [facility] [address] [place] [address] Cornejo, Viral V, DO Other 4 Telephone [facility] [facility] [address] [place] [place] [address] Sandy Chen, AIRPORT CONTROL OPERATOR Other 4 4:00 PM EST Office Visit [facility] [place] [facility] [address] [place] [place] [address] Cornejo, Viral V, DO WILLIE (generalized anxiety disorder) (Primary Dx); Nausea with vomiting; Encounter for long-term (current) use of other medications; Unspecified essential hypertension; Unspecified hypothyroidism 4 Telephone [facility] [place] [facility] [address] [place] [place] [address] Jenni Hernandez, RMA Anxiety 4 Refill [facility] [place] [facility] [address] [facility] [place] [address] Jameson Terrazas LPN Medication Refill 3 Telephone [facility] [place] [facility] [address] [place] [place] [address] Jameson Terrazas LPN Other 3 Telephone [facility] [place] [facility] [address] [facility] [place] [address] Ramonita Noriega, RMKaren Other 3 Telephone [facility] [address] [place] [address] aNsim Medeiros MD Other 3 Telephone [facility] [place] [address] [place] [place] [address] Cornjeo, Viral V, DO Other 3 Orders Only [facility] [address] [place] [place] [address] Sandy Chen LPN ZENG (headache) (Primary Dx) 3 Refill [facility] [place] [facility] [address] [place] [place] [address] Cornejo, Viral V, DO Medication Refill 3 3:28 PM EST - 3 11:59 PM EST Hospital Encounter [facility] [address] [place] [address] Kristopher Crump MD Syncope; Type II or unspecified type diabetes mellitus without mention of complication, not stated as uncontrolled (HCC); Unspecified essential hypertension; Chest pain, unspecified Discharge Disposition: Home or Self Care 3 2:34 PM EST - 3 3:27 PM EST Hospital Encounter [facility] MRI [address] [place] [address] Cornejo, Viral V, DO DDD (degenerative disc disease); Lumbar strain Discharge Disposition: Home or Self Care 3 1:45 PM EST Office Visit [facility] [place] [address] [place] [address] Kristopher Crump MD Syncope (Primary Dx); Type II or unspecified type diabetes mellitus without mention of complication, not stated as uncontrolled (HCC); Unspecified essential hypertension; Chest pain, unspecified 3 1:30 PM EST Office Visit [facility] [facility] [address] [place] [address] Cornejo, Viral V, DO WILLIE (generalized anxiety disorder) (Primary Dx); Urgency of urination; DDD (degenerative disc disease); Lumbar strain; Sinusitis; OM (otitis media); Foot pain 3 Telephone [facility] [address] [place] [address] Sandy Chen LPN Medication Refill 3 Refill [facility] [address] [place] [address] Jameson Terrazas LPN Medication Refill 3 Refill [facility] [place] [facility] [address] [place] [address] Jenni Feliz, RMA Other 3 Refill [facility] [place] [address] [place] [address] Jenni Feliz, RMA Medication Refill 3 Orders Only [facility] [place] [facility] [address] [place] [place] [address] Sandy Chen LPN HTN (hypertension) (Primary Dx) 3 Telephone [facility] [place] [address] [place] [address] Kristopher Crump MD Other 3 Telephone [facility] [place] [address] [place] [address] Sandy Chen, AIRPORT CONTROL OPERATOR Other 3 Abstract [facility] [place] [facility] [address] [place] [address] Sacha Keller MD 3 Refill [facility] [place] [facility] [address] [place] [address] Jameson Terrazas LPN Other 3 Refill [facility] [place] [facility] [address] [place] [address] Jenni Feliz, RMA Medication Refill 3 11:00 AM EDT Office Visit [facility] Neurology [facility] [address] [place] [address] Nasim Medeiros MD Syncope (Primary Dx); Borderline diabetes mellitus; Obesity 3 Orders Only [facility] [place] [facility] [address] [place] [place] [address] Jenni Feliz, RMA Unspecified hypothyroidism (Primary Dx) 3 12:16 PM EDT - 3 11:59 PM EDT Hospital Encounter [facility] [address] [facility] [place] [address] Cornejo, Viral V, DO Syncopal episodes Discharge Disposition: Home or Self Care 3 12:15 PM EDT Hospital Encounter [facility] [address] [facility] [place] [address] Cornejo, Viral V, DO Syncopal episodes Discharge Disposition: Home or Self Care 3 12:15 PM EDT Hospital Encounter [facility] [address] [facility] [place] [address] Cornejo, Viral V, DO Syncopal episodes Discharge Disposition: Home or Self Care 3 Orders Only [facility] [place] [facility] [address] [facility] [place] [address] Jenni Hernandez, RMA Gout (Primary Dx); Esophageal reflux; Unspecified hypothyroidism 3 7:26 PM EDT - 3 11:59 PM EDT Hospital Encounter [facility] PROCESSING [facility] [place] [address] Syncopal episodes; Unspecified essential hypertension Discharge Disposition: Home or Self Care 3 1:30 PM EDT Office Visit [facility] [place] [facility] [address] [place] [address] Cornejo, Viral V, DO Syncopal episodes (Primary Dx); Need for influenza vaccination; Labyrinthitis, unspecified; Unspecified essential hypertension; WILLIE (generalized anxiety disorder); Dysuria; UTI (lower urinary tract infection) 3 Telephone [facility] [place] [facility] [address] [place] [address] Jameson Terrazas, AIRPORT CONTROL OPERATOR Medication Refill 3 Telephone [facility] [place] [facility] [address] [place] [address] Talat Terrazasunita, AIRPORT CONTROL OPERATOR Medication Refill 3 Orders Only [facility] [place] [facility] [address] [place] [address] Jenni Hernandez RMA Thrush (Primary Dx) 3 Telephone [facility] [place] [facility] [address] [place] [address] Talat Terrazasunoswald, AIRPORT CONTROL OPERATOR Other 3 Telephone [facility] [place] [facility] [address] [place] [address] Talat Terrazasunoswald, AIRPORT CONTROL OPERATOR Medication Refill 3 Telephone [facility] [place] [facility] [address] [place] [address] Jameson Terrazas, AIRPORT CONTROL OPERATOR Other 3 Telephone [facility] [place] [facility] [address] [place] [address] Jameson Terrazas, AIRPORT CONTROL OPERATOR Other 3 Refill [facility] [place] [facility] [address] [place] [address] Ar Vaca MD Medication Refill 3 Refill [facility] [place] [facility] [address] [place] [address] Cornejo, Viral V, DO Medication Refill 3 Refill [facility] [place] [facility] [address] [place] [address] Ar Vaca MD Medication Refill 3 Telephone [facility] [place] [facility] [address] [place] [address] Jameson Terrazas LPN Other 3 11:49 AM EDT - 3 11:59 PM EDT Hospital Encounter [facility] [address] [facility] [place] [address] Dysuria (Primary Dx); Type II or unspecified type diabetes mellitus without mention of complication, not stated as uncontrolled (HCC); UTI (lower urinary tract infection); Unspecified essential hypertension; Nausea with vomiting; Chest pain, unspecified; Labyrinthitis, unspecified; Esophageal reflux; Unspecified hypothyroidism; Coronary artery spasm; Fibromyalgia; Left knee DJD; WILLIE (generalized anxiety disorder); Obesity; ZENG (headache) Discharge Disposition: Home or Self Care 3 [facility] [address] [place] [address] Ar Vaca MD Medication Refill 3 4:10 PM EDT Office Visit [facility] [place] [address] [place] [address] Cornejo, Viral V, DO Unspecified essential hypertension (Primary Dx); Dysuria; UTI (lower urinary tract infection); Atypical mole; ZENG (headache); Diabetes mellitus type 2, controlled (HCC) 3 Telephone [facility] [place] [address] [place] [address] Sandy Chen LPN Other 3 Telephone [facility] [place] [address] [place] [address] MkJameson, AIRPORT CONTROL OPERATOR Other 3 Telephone [facility] [place] [address] [place] [address] Jameson TerrazasJASIEL Other 3 7:53 PM EDT - 3 11:59 PM EDT Hospital Encounter [facility] PROCESSING [facility] [place] [address] Other abnormal blood cosmetic chemist ry Discharge Disposition: Home or Self Care 3 4:50 PM EDT Clinical Support [facility] [place] [address] [place] [address] Zulema Hurtado MA Other abnormal blood chemistry (Primary Dx) 3 Telephone [facility] [place] [address] [place] [address] MkTalatangelicaoswaldJASIEL Other 3 Telephone [facility] [place] [facility] [address] [place] [address] NoriegaStephanie casaskaren Motley [facility] Other 3 8:42 PM EDT - 3 11:59 PM EDT Hospital Encounter [facility] PROCESSING [address] [facility] [place] [address] Abdominal pain; RUQ abdominal pain; Unspecified hypothyroidism Discharge Disposition: Home or Self Care 3 1:30 PM EDT Office Visit [facility] [place] [address] [place] [address] Ar Vaca MD Fibromyalgia (Primary Dx); WILLIE (generalized anxiety disorder); Abdominal pain; Unspecified hypothyroidism; RUQ abdominal pain; UTI (lower urinary tract infection); Vaginal yeast infection 3 Telephone [facility] [place] [address] [place] [address] Ar Vaca MD Medication Refill (Rx Right source ) 3 Telephone [facility] [place] [address] [place] [place] [address] Sandy Chen LPN Medication Refill 3 Orders Only [facility] [place] [facility] [address] [place] [address] Sandy Chen LPN Unspecified hypothyroidism (Primary Dx) 3 7:16 PM EDT - 3 11:59 PM EDT Hospital Encounter EDG LAB VALERIO PROCESSING [facility] [address] Hypothyroidism Discharge Disposition: Home or Self Care 3 4:50 PM EDT Office Visit [facility] [place] [facility] [address] [place] [address] Cornejo, Viral V, DO Hypothyroidism (Primary Dx); DDD (degenerative disc disease); Low back pain; Insomnia 3 Orders Only [facility] [place] [address] [place] [address] Jenni Hernandez, RMA Gout (Primary Dx) 3 Orders Only [facility] [place] [address] [place] [address] Amanda Espinoza, RMKaren Esophageal reflux (Primary Dx) 3 Telephone [facility] [place] [facility] [address] [place] [address] Jameson Terrazas LPN Other; Visit Follow Up 3 Refill [facility] [place] [facility] [address] [place] [address] Ar Vaca MD Medication Refill 3 2:40 PM EDT Office Visit [facility] [place] [facility] [address] [place] [address] Karen Gonzalez MD Flu syndrome (Primary Dx); Fever 3 Telephone [facility] [place] [facility] [address] [place] [address] Ramonita Noriega RMA Other 3 Telephone [facility] [place] [facility] [address] [place] [address] Ramonita Noriega [facility] Medication Refill 3 Telephone [facility] [place] [facility] [address] [place] [address] Sandy Chen, AIRPORT CONTROL OPERATOR Other 3 Telephone [facility] [place] [facility] [address] [place] [address] Jameson Terrazas, AIRPORT CONTROL OPERATOR Other 3 Telephone [facility] [place] [facility] [address] [facility] [place] [address] Amanda Espinoza Karen Other 3 3:30 PM EST Office Visit [facility] [place] [facility] [address] [place] [address] Ar Vaca MD Acute otitis media, bilateral (Primary Dx); Unspecified essential hypertension; Seasonal allergies; Vaginal yeast infection 2 Refill [facility] [place] [facility] [address] [facility] [place] [address] Ar Vaca MD Medication Refill 2 11:10 AM EST Office Visit [facility] [place] [facility] [address] [place] [address] Ar Vaca MD WILLIE (generalized anxiety disorder); Fibromyalgia; Nausea with vomiting; Encounter for long-term (current) use of other medications 2 Refill [facility] [place] [facility] [address] [facility] [place] [address] Ar Vaca MD Medication Refill 2 Telephone [facility] [place] [facility] [address] [facility] [place] [address] Den Kingston MA Vaginitis 2 Telephone [facility] [place] [facility] [address] [facility] [place] [address] Amanda Espinoza Karen Other 2 Telephone [facility] [address] [address] Ar Vaca MD Medication Refill 2 Refill [facility] [place] [address] Ar Vaca MD Medication Refill 2 11:00 AM EDT Office Visit [facility] Gen Surg [facility] [address] [place] [address] Torrey Sanchez MD Abdominal pain (Primary Dx) 2 Refill [facility] [address] [address] Jameson Terrazas LPN Other 2 8:11 PM EDT - 2 11:59 PM EDT Hospital Encounter EDG LAB VALERIO PROCESSING [facility] [place] [address] Unspecified essential hypertension; Perimenopausal symptoms; Hyperglycemia; Hypothyroid; Vitamin D deficiency; Abnormal laboratory test result Discharge Disposition: Home or Self Care 2 2:20 PM EDT Office Visit [facility] [place] [address] Ar Vaca MD Hypothyroid (Primary Dx); WILLIE (generalized anxiety disorder); Flu vaccine need; Unspecified essential hypertension; Vitamin D deficiency; Hyperglycemia; Perimenopausal symptoms 2 Refill [facility] [address] [address] Ar Vaca MD Medication Refill 2 10:23 AM EDT - 2 11:59 PM EDT Hospital Encounter [facility] [address] [place] [address] Torrey Sanchez MD RUQ pain Discharge Disposition: Home or Self Care 2 Orders Only [address] [address] Ramonita Noriega, RMKaren Esophageal reflux; Hypothyroid 2 Refill [facility] [place] [address] [place] [address] Ar Vaca MD Medication Refill 2 3:00 PM EDT Office Visit [facility] S[facility] [address] [place] [address] Torrey Sanchez MD RUQ pain (Primary Dx) 2 Orders Only [facility] [place] [place] [address] Ar Vaca MD UTI (lower urinary tract infection); Vaginal yeast infection 2 Telephone [facility] [place] [address] [place] [address] Sandy Chen LPN Results [facility] [place] [address] Ar Vaca MD Medication Refill 2 5:11 PM EDT - 2 6:59 PM EDT Emergency [facility] [place] [address] Hilary Quinonez MD Abdominal pain, right upper quadrant; Type II or unspecified type diabetes mellitus without mention of complication, not stated as uncontrolled (HCC) Discharge Disposition: Home or Self Care 2 Refill [facility] [place] [address] [place] [address] Ar Vaca MD Medication Refill 2 Refill [facility] [place] [address] [place] [address] Ar Vaca MD Medication Refill 2 Refill [facility] [place] [address] [place] [address] Ar Vaca MD Medication Refill 2 Telephone [facility] [place] [address] [facility] [address] Ar Vaca MD Medication Refill 2 Refill [facility] [place] [address] [facility] [address] Ar Vaca MD Medication Refill 2 Telephone [facility] [place] [facility] [address] [facility] [address] Sandy Chen LPN Medication Refill 2 5:20 PM EDT Office Visit [facility] [address] [place] [address] Ar Vaca MD Esophageal reflux; WILLIE (generalized anxiety disorder); Unspecified essential hypertension; Unspecified hypothyroidism; Health maintenance examination 2 Refill [facility] [address] [place] [address] Ar Vaca MD Medication Refill 2 [facility]phone [facility] [place] [address] Ar Vaca MD Other 2 1:49 PM EDT - 2 11:59 PM EDT Hospital Encounter [facility] [address] [place] [address] Ar Vaca MD [facility] Discharge Disposition: Home or Self Care 2 Telephone [facility] [place] [address] [place] [address] Ar Vaca MD Other 2 Telephone [facility] [place] [address] [facility] [address] Lora Domínguez RMA Medication Refill 2 Refill [facility] [place] [place] [address] Ar Vaca MD Medication Refill 2 Orders Only [facility] [place] [facility] [address] [place] [address] Ar Vaca MD Lumbago (Primary Dx) 2 Telephone [facility] [place] [facility] [address] [place] [address] Jameson Terrazas LPN Other 2 2:28 PM EDT - 2 3:52 PM EDT Emergency [facility] [address] [place] [address] Dania Loving DO Degenerative disc disease Discharge Disposition: Home or Self Care 2 Telephone [facility] [place] [facility] [address] [place] [address] oLra Domínguez, RMA Other 2 Telephone [facility] [place] [facility] [address] [place] [address] Lora Domínguez, RMA Other 2 Telephone [facility] [place] [facility] [address] [place] [address] Ar Vaca MD Referral 2 Telephone [facility] [place] [facility] [address] [place] [address] Jameson Terrazas LPN Medication Refill 2 Orders Only [facility] [place] [facility] [address] [place] [address] Ar Vaca MD Left knee DJD (Primary Dx); Fibromyalgia; ZENG (headache) 2 Orders Only [facility] [place] [facility] [address] [place] [address] Mckayla Roach MA Thrush (Primary Dx) 2 Telephone [facility] [place] [facility] [address] [place] [address] Sandy Chen LPN Other 2 2:30 PM EST Office Visit [facility] [place] [facility] [address] [place] [address] Ar Vaca MD Left knee DJD (Primary Dx); Fibromyalgia; WILLIE (generalized anxiety disorder); Obesity; Closed head injury; Chest wall contusion; ZENG (headache) 2 Telephone [facility] [place] [facility] [address] [place] [address] Ar Vaca MD Fall 2 Telephone [facility] [place] [facility] [address] [place] [address] Lora Dmoínguez, Karen Other 2 Telephone [facility] [place] [facility] [address] [place] [address] Ar Vaca MD Medication Management 2 1:50 PM EST Office Visit [facility] [place] [facility] [address] [place] [address] Ar Vaca MD Left knee DJD (Primary Dx); Migraine; Fibromyalgia; WILLIE (generalized anxiety disorder) 2 Telephone [facility] [place] [facility] [address] [place] [address] Lora Domínguez Karen Other 2 Telephone [facility] [place] [facility] [address] [place] [address] Lora Domínguez [facility] Other 2 Refill [facility] [place] [facility] [address] [place] [address] Ar Vaca MD Medication Refill 2 10:45 AM EST - 2 11:30 AM EST Surgery [facility] [address] [place] [address] Cathleen Das ESOPHAGOGASTRODUODENOSCOPY 2 9:10 AM EST - 2 11:35 AM EST Hospital Encounter [facility] [address] [place] [address] Cathleen Das Discharge Disposition: Home or Self Care 2 Telephone [facility] [place] [facility] [address] [facility] [place] [address] Domínguez Lora Brock, RMA Other 2 Refill [facility] [place] [facility] [address] [facility] [place] [address] Cornejo, Viral V, DO Medication Refill 2 Refill [facility] [place] [facility] [address] [facility] [place] [address] Ar Vaca MD Medication Refill 1 Telephone [facility] [place] [facility] [address] [facility] [place] [address] Sandy Chen LPN Other 1 Telephone [facility] [place] [facility] [address] [facility] [place] [address] Ar Vaca MD Other 1 1:51 PM EST - 1 11:59 PM EST Hospital Encounter [facility] [address] [place] [address] Ar Vaca MD Recurrent sinusitis Discharge Disposition: Home or Self Care 1 2:50 PM EST Office Visit [facility] [place] [facility] [address] [place] [address] Ar Vaca MD Left knee DJD (Primary Dx); Migraine; Fibromyalgia; Recurrent sinusitis 1 Telephone [facility] [place] [facility] [address] [facility] [place] [address] Ada Antunez MA Other 1 Telephone [facility] [place] [facility] [address] [facility] [place] [address] Ar Vaca MD Medication Refill 1 1:23 PM EST - 1 11:59 PM EST Hospital Encounter [facility] Mammography [address] [place], [place] [address] Ar Vaca MD Other screening mammogram Discharge Disposition: Home or Self Care 1 Telephone [facility] [place] [address] [place] [address] Ada Antunez MA Other 1 1:30 PM EDT Office Visit [facility] [address] [place] [address] Ar Vaca MD Abdominal pain (Primary Dx); Urgency of urination; Needs flu shot; Weight loss, unintentional; Nausea with vomiting [address] [address] Ar Vaca MD Other [address] [address] Ar Vaca MD Medication Management (verify directions on Allopurinol) [address] [address] Gabbie Morris MA Medication Refill 1 3:39 PM EDT - 1 7:48 PM EDT Emergency [facility] [address] Efrem Hampton MD Abdominal pain, generalized Discharge Disposition: Home or Self Care 1 Telephone [facility] [place] [facility] [address] [place] [address] Mckayla Roach MA Medication Refill 1 Telephone [facility] [address] [address] Gabbie Morris MA Medication Refill 1 Refill [facility] [address] [address] Ar Vaca MD Medication Refill 1 Telephone [facility] [place] [facility] [address] [place] [address] Lora Domínguez RMA Medication Refill 1 8:36 PM EDT - 1 11:59 PM EDT Hospital Encounter [facility]G LAB VALERIO PROCESSING [facility] [place] [address] Acute sinusitis; Nausea & vomiting; Weight loss Discharge Disposition: Home or Self Care 1 Telephone [facility] [place] [facility] [address] [place] [address] Ar Vaca MD Referral 1 11:20 AM EDT Office Visit [facility] [place] [facility] [address] [place] [address] Ar Vaca MD Migraine; Fibromyalgia; WILLIE (generalized anxiety disorder); Acute sinusitis; Weight loss; Nausea & vomiting; Nausea with vomiting 1 Refill [facility] [place] [facility] [address] [place] [address] Ar Vaca MD Medication Refill 1 Refill [facility] [place] [facility] [address] [place] [address] Jameson Terrazas LPN Medication Refill 1 Refill [facility] [place] [facility] [address] [place] [address] Ar Vaca MD Medication Refill 1 Refill [facility] [place] [facility] [address] [place] [address] Jameson Terrazas LPN Medication Refill 1 Telephone [facility] [place] [facility] [address] [place] [address] Alma Ornelas LPN Medication Refill 1 Refill [facility] [place] [facility] [address] [place] [address] Ar Vaca MD Medication Refill 1 2:00 PM EDT Office Visit [facility] [place] [facility] [address] [place] [address] Ar Vaca MD Migraine; Fibromyalgia; Nausea with vomiting; Hypothyroid; Dependent edema 1 Refill [facility] [place] [facility] [address] [place] [address] Ar Vaca MD Medication Refill 1 Telephone [facility] [address] [place] [place] [address] Ada Antunez MA Other 1 Telephone [facility] [address] [place] [address] Lora Domínguez RMA Medication Refill 1 2:20 PM EDT Clinical Support [facility] [address] [place] [place] [address] Melia Love MA Abdominal pain, other specified site (Primary Dx) 1 Refill [facility] [address] [facility] [place] [address] Mckayla Roach MA Medication Refill 1 Telephone [facility] [address] [facility] [place] [address] Ar Vaca MD Medication Refill 1 Refill [facility] [address] [place] [address] Ar Vaca MD Medication Refill 1 Refill [facility] [address] [facility] [place] [address] Cornejo, Viral V, DO Medication Refill 1 Refill [facility] [place] [facility] [address] [facility] [place] [address] Ar Vaca MD Medication Refill 1 Telephone [facility] [place] [facility] [address] [facility] [place] [address] Ar Vaca MD Medication Refill 1 8:11 PM EDT - 1 11:59 PM EDT Hospital Encounter EDG LAB VALERIO PROCESSING [facility] [address] Unspecified labyrinthitis Discharge Disposition: Home or Self Care 1 2:50 PM EDT Clinical Support [facility] [place] [facility] [address] [place] [place] [address] Mckayla Roach MA Unspecified labyrinthitis (Primary Dx) 1 Orders Only [facility] [place] [facility] [address] [facility] [place] [address] Ar Vaca MD ZENG (headache) (Primary Dx); FHx: osteopenia 1 Refill [facility] [place] [facility] [address] [place] [address] Ar Vaca MD Medication Refill 1 2:00 PM EDT Office Visit [facility] [place] [facility] [address] [place] [address] Cornejo, Viral V, DO Migraine; Fibromyalgia; Anxiety; Nausea with vomiting; Acute pharyngitis; Acute sinusitis; Rash 1 9:13 AM EDT - 1 12:58 PM EDT Emergency [facility] [address] [place] [address] Della Perez MD Chest pain; Post concussive syndrome; Post-traumatic headache, unspecified Discharge Disposition: Home or Self Care 1 Telephone [facility] [place] [facility] [address] [place] [address] Melia Love MA Other 1 Telephone [facility] [place] [facility] [address] [place] [address] Gabbie Morris MA Other 1 3:30 PM EDT - 1 11:59 PM EDT Hospital Encounter [facility] [address] [place] [address] Foot pain Discharge Disposition: Home or Self Care 1 Telephone [facility] [place] [facility] [address] [place] [address] Sandy Chen LPN Other 1 Telephone [facility] [place] [facility] [address] [place] [address] Sandy Chen LPN Medication Refill 1 2:57 PM EDT - 1 3:29 PM EDT Hospital Encounter [facility]EX[facility] [address] [place] [address] Ar Vaca MD Loss of height; Symptomatic menopausal or female climacteric states Discharge Disposition: Home or Self Care 1 2:25 PM EDT - 1 4:06 PM EDT Emergency [facility] [address] 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 ) 1 Telephone [facility] [place] [facility] [address] [place] [address] Gabbie Morris MA Other 1 3:00 PM EST Office Visit [facility] [place] [facility] [address] [place] [address] Ar Vaca MD Fibromyalgia (Primary Dx); Migraine; Anxiety; Nausea with vomiting 1 Telephone [facility] [place] [facility] [address] [place] [address] AmDennise santos Medication Refill (duplicate from 09/01/10) 1 Telephone [facility] [place] [address] [place] [address] AmDennise santos Medication Refill 1 Telephone [facility] [place] [facility] [address] [place] [address] Scarlett Cee R Results 1 2:27 PM EST - 1 11:59 PM EST Hospital Encounter [facility] LAB VALERIO PROCESSING [address] [facility] [place] [address] Ar Vaca MD Unspecified essential hypertension; Unspecified hypothyroidism Discharge Disposition: Home or Self Care 1 1:40 PM EST Office Visit [facility] [place] [address] [place] [address] Ar Vaca MD Fibromyalgia (Primary Dx); Migraine; Hypothyroid; Esophageal reflux; Unspecified essential hypertension; Acute sinusitis 0 Refill [facility] [place] [facility] [address] [place] [address] Ar Vaca MD Medication Refill 0 3:00 PM EST Office Visit [facility] [place] [facility] [address] [place] [address] Ar Vaca MD Fibromyalgia (Primary Dx); Migraine; Dizziness; Acute sinusitis 0 Refill [facility] [place] [facility] [address] [place] [place] [address] Zbigniew Multani MD Medication Refill 0 Refill [facility] [place] [facility] [address] [place] [place] [address] Ar Vaca MD Medication Refill 0 Telephone [facility] [place] [facility] [address] [place] [address] Ornelas Almathae Ashford, AIRPORT CONTROL OPERATOR Medication Refill 0 Refill [facility] [place] [facility] [address] [place] [place] [address] Zbigniew Multani MD Medication Refill 0 Telephone [facility] [place] [facility] [address] [facility] [place] [address] Mckayla Roach, MA Dizziness 0 Telephone [facility] [place] [facility] [address] [place] [address] Lora Domínguez, RMA Medication Refill 0 Telephone [facility] [place] [facility] [address] [place] [address] Dennies Arboleda Results 0 Telephone [facility] [place] [facility] [address] [place] [place] [address] Georgette Thompson Other 0 Telephone [facility] [place] [facility] [address] [place] [place] [address] Amanda Contreras RMA Results 0 8:54 AM EST - 0 11:59 PM EST Hospital Encounter [facility] [address] [place] [address] Ar Vaca MD Syncope Discharge Disposition: Home or Self Care 0 8:54 AM EST - 0 11:59 PM EST Hospital Encounter [facility] MRI [address] [place] [address] Ar Vaca MD Syncope Discharge Disposition: Home or Self Care 0 8:54 AM EST - 0 11:59 PM EST Hospital Encounter [facility] Ultrasound [address] [place] [address] Ar Vaca MD Syncope Discharge Disposition: Home or Self Care 0 9:00 AM EDT - 0 11:59 PM EDT Hospital Encounter EDG LAB VALERIO PROCESSING [place] [address] Ar Vaca MD Unspecified essential hypertension; Unspecified hypothyroidism Discharge Disposition: Home or Self Care 0 Telephone [facility] [place] [facility] [address] [place] [address] Mckayla Roach MA Other 0 8:50 AM EDT Clinical Support [facility] [place] [facility] [address] [place] [address] Scarlett Cee Unspecified essential hypertension; Unspecified hypothyroidism 0 Telephone [facility] [place] [facility] [address] [place] [address] Sandy Chen LPN Other 0 Telephone [facility] [place] [facility] [address] [place] [address] Georgette Thompson Other 0 2:00 PM EDT Office Visit [facility] [place] [facility] [address] [place] [address] Ar Vaca MD Syncope (Primary Dx); Need for prophylactic vaccination and inoculation against influenza 0 Telephone [facility] [place] [facility] [address] [place] [address] Dennise Arboleda Medication Refill 0 Telephone [facility] [place] [facility] [address] [place] [address] Sandy Chen LPN Medication Refill [address] [address] Gabbie Morris MA Other 0 1:12 AM EDT - 0 6:55 PM EDT Hospital Encounter [facility] [address] [place], [place] [id number] Theo Vazquez MD Discharge Disposition: [facility] 0 6:44 PM EDT - 0 1:01 AM EDT Emergency [facility] [address] [facility] [place], [place] [id number] Gabby Capone MD Sower, David H, MD Suicidal ideation; Overdose; Depression; Poisoning by benzodiazepine-based tranquilizers Discharge Disposition: Admitted as an Inpatient 0 1:00 PM EDT Office Visit [address] [address] Ar Vaca MD HTN (hypertension) (Primary Dx); Hypothyroid; DDD (degenerative disc disease), lumbar; WILLIE (generalized anxiety disorder); Migraine; Anxiety [address] [address] Ar Vaca MD [address] [address] Ar Vaca MD Nervousness; Nausea with vomiting; Unspecified chest pain; Unspecified labyrinthitis; Esophageal reflux; Unspecified essential hypertension; Unspecified hypothyroidism 0 1:28 PM EDT - 0 2:31 PM EDT Emergency [facility] GES GRT Michael Stone MD 0 6:10 AM EDT - 0 12:05 PM EDT Hospital Encounter HST Efrem Matute MD 0 12:01 AM EDT - 0 11:59 PM EDT Hospital Encounter [facility] RADIOLOGY GRT Ar Vaca MD 0 12:01 AM EDT - 0 11:59 PM EDT Hospital Encounter [facility] RADIOLOGY GRT Ar Vaca MD 0 4:59 AM EDT - 0 11:59 PM EDT Emergency [facility] GES GRT Debbie Figueroa MD 0 4:27 PM EST - 0 11:59 PM EST Hospital Encounter [facility] RADIOLOGY GRT Ar Vaca MD 9 3:10 PM EST - 9 11:59 PM EST Hospital Encounter HST EPIC CON UNK EDG Ar Vaca MD 9 12:50 PM EST - 9 11:59 PM EST Hospital Encounter HST EPIC CON UNK GRT Ar Vaca MD 9 8:03 AM EDT - 9 11:59 PM EDT Hospital Encounter HST EPIC CON UNK GRT Pippa Cathleen 9 5:28 PM EDT - 9 11:59 PM EDT Hospital Encounter HST EPIC CON UNK GRT Pippa Cathleen 9 12:42 PM EDT - 9 11:59 PM EDT Hospital Encounter HST EPIC CON UNK EDG Petar Dasta 9 12:01 AM EDT - 9 11:59 PM EDT Hospital Encounter HST EPIC CON UNK GRT Cornejo, Viral V, DO 9 12:01 AM EDT - 9 11:59 PM EDT Hospital Encounter HST RADIOLOGY GRT Ildefonso Horta MD 9 5:02 PM EDT - 9 11:59 PM EDT Hospital Encounter HST LAB EDG Sacha Keller MD 9 5:37 AM EDT - 9 9:30 AM EDT Hospital Encounter HST CCR Kristopher Crump MD 9 1:45 PM EDT - 9 11:59 PM EDT Hospital Encounter HST GC SPEC SVC TIRSOT Kristopher Crump MD 9 10:43 AM EDT - 9 4:10 PM EDT Hospital Encounter HST GC SPEC SVC TIRSOT Kristopher Crump MD 9 4:30 PM EDT - 9 11:59 PM EDT Hospital Encounter HST LAB GRT Cornejo, Viral V, DO 9 12:01 AM EDT - 9 11:59 PM EDT Hospital Encounter HST RADIOLOGY GRT Ar Vaca MD 9 3:45 PM EST - 9 11:59 PM EST Hospital Encounter HST RADIOLOGY GRT Cornejo, Viral V, DO 8 12:04 PM EDT - 8 11:59 PM EDT Hospital Encounter HST LAB EDG Sacha Keller MD 8 5:13 PM EDT - 8 11:59 PM EDT Hospital Encounter HST LAB EDG Clemente Viral V, DO 8 12:57 PM EDT - 8 11:59 PM EDT Hospital Encounter HST RADIOLOGY GRT Ar Vaca MD 8 8:53 PM EST - 8 11:59 PM EST Hospital Encounter HST LAB EDG Ar Vaca MD 7 3:21 PM EST - 7 11:59 PM EST Hospital Encounter HST LAB EDG Ar Vaca MD 7 8:10 AM EDT - 7 11:05 AM EDT Hospital Encounter HST Wander Arevalo MD 7 12:46 PM EDT - 7 11:59 PM EDT Hospital Encounter HST LAB TIRSOT Ar Vaca MD 7 9:35 AM EDT - 7 11:59 PM EDT Hospital Encounter HST GC SPEC SVC GRT Wander Vicente MD 7 4:26 PM EDT - 7 7:49 PM EDT Emergency HST EPIC CON UNK EDG Chana Israel MD 7 7:51 AM EDT - 7 11:59 PM EDT Hospital Encounter HST RADIOLOGY GRT Ar Vaca MD 7 7:55 PM EDT - 7 11:59 PM EDT Hospital Encounter HST LAB EDG CornejoJose V, DO 7 3:47 PM EDT - 7 11:59 PM EDT Hospital Encounter HST LAB EDG Ar Vaca MD 7 2:11 PM EDT - 7 11:59 PM EDT Hospital Encounter HST LAB EDG Ar Vaca MD 7 9:05 AM EST - 7 11:59 PM EST Hospital Encounter HST RADIOLOGY GRT Ar Vaca MD 7 7:56 AM EST - 7 11:59 PM EST Hospital Encounter HST RADIOLOGY GRT Ar Vaca MD 7 4:59 PM EST - 7 5:48 PM EST Emergency HST EPIC CON UNK GRT Wander Beyer MD 7 3:55 PM EST - 7 11:59 PM EST Hospital Encounter HST RADIOLOGY GRT Ar Vaca MD 6 12:04 PM EST - 6 11:59 PM EST Hospital Encounter HST LAB EDG Ar Vaca MD 6 11:32 AM EDT - 6 11:59 PM EDT Hospital Encounter HST LAB EDG Ar Vaca MD 6 8:24 AM EDT - 6 11:59 PM EDT Hospital Encounter HST RADIOLOGY GRT Ar Vaca MD 6 11:01 AM EDT - 6 3:40 PM EDT Emergency HST EPIC CON UNK GRT Dung العلي MD 6 5:07 PM EDT - 6 11:59 PM EDT Hospital Encounter HST LAB EDG Ar Vaca MD 6 8:40 AM EDT - 6 1:50 PM EDT Hospital Encounter HST SAS Julia Medeiros MD 6 8:52 AM EDT - 6 11:59 PM EDT Hospital Encounter HST GC SPEC SVC GRT Julia Medeiros MD 6 8:48 AM EDT - 6 11:59 PM EDT Hospital Encounter HST RADIOLOGY GRT Ar Vaca MD 6 7:46 AM EDT - 6 1:05 PM EDT Hospital Encounter HST 4C1 Dung Vela MD 6 12:01 AM EST - 6 11:59 PM EST Hospital Encounter HST RADIOLOGY EDG Kwame Mcallister MD 6 12:01 AM EST - 6 11:59 PM EST Hospital Encounter HST RADIOLOGY EDG Ar Vaca MD 6 1:03 PM EST - 6 11:59 PM EST Hospital Encounter HST LAB EDG Ar Vaca MD 6 9:51 AM EST - 6 11:59 PM EST Hospital Encounter HST RADIOLOGY GRT Ar Vaca MD 6 6:29 PM EST - 6 11:59 PM EST Hospital Encounter HST LAB EDG Ar Vaca MD 5 3:55 PM EST - 5 11:59 PM EST Hospital Encounter HST LAB EDG Ar Vaca MD 5 11:28 AM EST - 5 11:59 PM EST Hospital Encounter HST LAB EDG Ar Vaca MD 5 12:01 AM EST - 5 2:13 PM EST Hospital Encounter HST HAND THERAPY EDG Luana Varghese MD 5 11:01 AM EDT - 5 11:59 PM EST Hospital Encounter HST HAND THERAPY EDG Luana Varghese MD 5 8:13 AM EDT - 5 10:52 AM EDT Hospital Encounter HST OSC Launa Varghese MD 5 12:01 AM EDT - 5 11:59 PM EDT Hospital Encounter HST EMG EDG Luana Varghese MD 5 10:29 AM EDT - 5 11:59 PM EDT Hospital Encounter HST RADIOLOGY GRT Ar Vaca MD 5 1:41 PM EDT - 5 11:59 PM EDT Hospital Encounter HST LAB EDG Ar Vaca MD 5 10:10 AM EDT - 5 11:59 PM EDT Hospital Encounter HST RADIOLOGY GRT Ar Vaca MD 5 7:55 PM EDT - 5 9:05 PM EDT Emergency HST EPIC CON UNK GRT Eyad Harkins MD 5 2:32 PM EDT - 5 11:59 PM EDT Hospital Encounter HST LAB EDG Ar Vaca MD 5 12:42 PM EST - 5 11:59 PM EST Hospital Encounter HST LAB EDG Ar Vaca MD 4 7:08 AM EDT - 4 11:35 AM EDT Hospital Encounter HST GC SPEC SVC TIRSOT Dung Vela MD 4 10:41 AM EDT - 4 11:59 PM EDT Hospital Encounter HST LAB EDG Ar Vaca MD 4 11:17 AM EDT - 4 11:59 PM EDT Hospital Encounter HST RADIOLOGY GRT Ar Vaca MD 4 8:24 AM EDT - 4 11:59 PM EDT Hospital Encounter HST RADIOLOGY TIRSOT Ar Vaca MD 4 9:32 AM EDT - 4 11:59 PM EDT Hospital Encounter HST RADIOLOGY GRT Ar Vaca MD 4 12:01 AM EDT - 4 11:59 PM EDT Hospital Encounter HST RADIOLOGY GRT Ar Vaca MD 4 5:46 PM EDT - 4 11:59 PM EDT Hospital Encounter HST RADIOLOGY GRT Ar Vaca MD 4 10:30 AM EDT - 4 11:59 PM EDT Hospital Encounter HST RADIOLOGY GRT Ar Vaca MD 4 9:40 AM EDT - 4 11:59 PM EDT Hospital Encounter HST LAB GRT Kristopher Crump MD 4 9:04 AM EST - 4 11:59 PM EST Hospital Encounter HST RADIOLOGY GRT Cecilia Kemp MD 3 8:39 AM EST - 3 11:59 PM EST Hospital Encounter HST RADIOLOGY GRT Ar Vaca MD 3 10:43 AM EST - 3 11:59 PM EST Hospital Encounter HST LAB EDG Ar Vaca MD 3 12:33 PM EST - 3 2:15 PM EST Emergency HST EPIC CON UNK GRT Gurpreet Mancuso DO 3 5:55 PM EST - 3 11:59 PM EST Hospital Encounter HST LAB EDG Ar Vaca MD 3 12:05 PM EST - 3 11:59 PM EST Hospital Encounter HST GC SPEC SVC TIRSOT Kristopher Crump MD 3 1:58 PM EDT - 3 11:59 PM EDT Hospital Encounter HST LAB EDG Ar Vaca MD 3 12:30 PM EDT - 3 1:55 PM EDT Emergency HST EPIC CON UNK GRT Hilary Quinonez MD 3 1:46 PM EDT - 3 11:59 PM EDT Hospital Encounter HST LAB EDG Sacha Keller MD 3 8:01 AM EST - 3 2:00 PM EST Hospital Encounter HST 4C2 Kristopher Crump MD 3 1:42 PM EST - 3 11:59 PM EST Hospital Encounter HST GC SPEC SVC Kristopher Ritchie MD 3 11:49 AM EST - 3 11:59 PM EST Hospital Encounter HST RADIOLOGY GRT Ar Vaca MD 3 10:49 AM EST - 3 11:59 PM EST Hospital Encounter HST LAB EDG Ar Vaca MD 3 11:21 AM EST - 3 11:59 PM EST Hospital Encounter HST GC SPEC SVC Kristopher Ritchie MD 2 11:26 AM EST - 2 11:59 PM EST Hospital Encounter HST RADIOLOGY GRT Ar Vaca MD 2 8:10 AM EST - 2 11:59 PM EST Hospital Encounter HST GC SPEC SVC Dung Parnell MD 2 7:24 PM EDT - 2 11:59 PM EDT Hospital Encounter HST LAB EDG Ar Vaca MD 2 11:08 PM EDT - 2 11:55 PM EDT Emergency HST MAJOR ER EDG Richar Mendosa III, MD 2 9:29 AM EDT - 2 11:59 PM EDT Hospital Encounter HST GC SPEC SVC GRT Kristopher Crump MD 2 9:55 PM EDT - 2 4:44 PM EDT Hospital Encounter HST TCA Genesis Mayorga Judy L, MD 2 10:55 AM EDT - 2 11:59 PM EDT Hospital Encounter HST LAB EDG Zbigniew Multani MD 2 6:11 PM EDT - 2 11:59 PM EDT Hospital Encounter HST LAB EDG Ar Vaca MD 2 1:35 PM EST - 2 11:59 PM EST Hospital Encounter HST LAB EDG Ar Vaca MD 2 7:34 PM EST - 2 8:10 PM EST Emergency HST MAJOR ER EDG Jagdish Hodge MD Levine, Lawrence A, MD 2 7:58 PM EST - 2 8:55 PM EST Emergency HST EPIC CON UNK GRT Richar Mendosa III, MD 1 11:16 PM EST - 1 2:13 PM EST Hospital Encounter HST 3CS Jagdish Hodge MD 1 6:02 PM EST - 1 11:59 PM EST Hospital Encounter HST LAB EDG Ar Vaca MD 1 9:56 AM EST - 1 11:59 PM EST Hospital Encounter HST RADIOLOGY GRT Ar Vaca MD 1 12:21 PM EST - 1 5:57 PM EST Hospital Encounter HST 2CO Hilary Sanches 1 6:23 PM EST - 1 11:59 PM EST Hospital Encounter HST LAB EDG Ar Vaca MD 1 6:39 PM EDT - 1 11:59 PM EDT Hospital Encounter HST LAB EDG Ar Vaca MD 1 7:49 AM EDT - 1 11:59 PM EDT Hospital Encounter HST RADIOLOGY GRT Sacha Mario MD 1 10:51 AM EDT - 1 11:59 PM EDT Hospital Encounter HST LAB EDG Ar Vaca MD 1 12:47 PM EDT - 1 11:59 PM EDT Hospital Encounter HST RADIOLOGY GRT Ar Vaca MD 1 1:24 PM EDT - 1 11:59 PM EDT Hospital Encounter HST GC SPEC SVC GRT Usha Higgins 1 1:07 PM EDT - 1 11:59 PM EDT Hospital Encounter HST LAB GRT Chana Warner MD 1 11:32 AM EDT - 1 11:59 PM EDT Hospital Encounter HST RADIOLOGY GRT Ar Vaca MD 1 4:47 PM EDT - 1 1:37 PM EDT Hospital Encounter HST TCA Maulik Guerra MD 1 7:28 AM EDT - 1 11:59 PM EDT Hospital Encounter HST RADIOLOGY GRT Semaj Ballesteros MD 1 12:01 AM EDT - 1 11:59 PM EDT Hospital Encounter HST PT GRT Ar Vaca MD 1 5:10 AM EDT - 1 2:30 PM EDT Hospital Encounter HST 2CO Kristopher Crump MD 1 8:48 AM EDT - 1 11:59 PM EDT Hospital Encounter HST RADIOLOGY GRT Kristopher Crump MD 1 6:20 PM EDT - 1 7:05 PM EDT Emergency HST EPIC CON UNK GRT Petardonald Gurpreet DO Cecelia 1 11:52 AM EDT - 1 11:59 PM EDT Hospital Encounter HST GC SPEC SVC GRT Isaac Washington MD 1 Hospital Encounter HST UNKNFLO Generic, Historical Provider 1 2:24 PM EDT - 1 11:59 PM EDT Hospital Encounter HST PT GRT Ar Vaca MD 1 3:41 PM EST - 1 11:59 PM EST Hospital Encounter HST RADIOLOGY GRT Ar Vaca MD 1 Hospital Encounter HST UNKNFTT Generic, Historical Provider 0 10:36 AM EST - 0 11:59 PM EST Hospital Encounter HST GC SPEC SVC GRT Chana Hendrickson, ELINA 0 9:57 AM EST - 0 11:59 PM EST Hospital Encounter HST RADIOLOGY GRT Ar Vaca MD 0 12:15 PM EST - 0 11:59 PM EST Hospital Encounter HST RADIOLOGY GRT Ar Vaca MD 0 5:37 AM EDT - 0 11:59 PM EDT Hospital Encounter HST RADIOLOGY EDG Megan Hawk MD 0 1:17 PM EDT - 0 11:59 PM EDT Hospital Encounter HST RADIOLOGY GRT Megan Hawk MD 0 11:38 PM EDT - 0 12:25 AM EDT Emergency HST EPIC CON UNK GRT Chana Mosquera MD 0 8:26 AM EDT - 0 11:59 PM EDT Hospital Encounter HST GC SPEC SVC Dung Parnell MD 0 12:08 PM EDT - 0 11:59 PM EDT Hospital Encounter HST GC SPEC SVC GRT Dung Vela MD 0 12:21 PM EDT - 0 11:59 PM EDT Hospital Encounter HST RADIOLOGY GRT Zbigniew Multani MD 0 10:07 AM EDT - 0 11:59 PM EDT Hospital Encounter HST LAB Zbigniew Max MD 0 1:49 PM EST - 0 11:59 PM EST Hospital Encounter HST RADIOLOGY TIRSOT Zbigniew Multani MD 0 7:49 AM EST - 0 11:59 PM EST Hospital Encounter HST RADIOLOGY GRT Cecilia Banks 0 12:17 PM EST - 0 2:00 PM EST Emergency HST EPIC CON UNK GRT Hilary Quinonez MD 9 8:08 PM EST - 9 8:40 PM EST Emergency HST EPIC CON UNK GRT Eyad Harkins MD 9 9:16 AM EST - 9 11:59 PM EST Hospital Encounter HST RADIOLOGY GRT Ar Vaca MD 9 1:16 PM EDT - 9 11:59 PM EDT Hospital Encounter HST EK1 GRT Braeden Kincaid 9 3:17 PM EDT - 9 11:59 PM EDT Hospital Encounter HST RADIOLOGY GRT Ar Vaca MD 9 4:04 AM EDT - 9 11:59 PM EDT Hospital Encounter HST CTR WOM WEL EDG Braeden Kincaid 9 5:13 PM EDT - 9 11:59 PM EDT Hospital Encounter HST RADIOLOGY TIRSOT Ar Vaca MD 9 1:15 PM EDT - 9 11:59 PM EDT Hospital Encounter HST RADIOLOGY GRT Braeden Kincaid 9 8:19 AM EST - 9 11:59 PM EST Hospital Encounter HST RADIOLOGY GRT Ar Vaca MD 9 8:22 AM EST - 9 11:59 PM EST Hospital Encounter HST RADIOLOGY GRT Ar Vaca MD 8 10:04 AM EST - 8 11:59 PM EST Hospital Encounter HST RADIOLOGY TIRSOT Megan Hawk MD 8 1:02 PM EDT - 8 11:59 PM EDT Hospital Encounter HST RADIOLOGY GRT Zbigniew Multani MD 8 6:09 PM EDT - 8 11:59 PM EDT Hospital Encounter HST EPIC CON UNK EDG [facility] 8 8:20 PM EST - 8 11:59 PM EST Hospital Encounter HST LAB EDG [facility] 7 3:27 PM EST - 7 11:59 PM EST Hospital Encounter HST HAND EDG Luana Varghese MD 7 1:38 PM EST Hospital Encounter HST SAS Luana Varghese MD 5 8:24 PM EDT - 5 11:59 PM EDT Hospital Encounter HST EPIC CON UNK COV [facility] 5 11:00 AM EDT - 5 11:59 PM EDT Emergency HST EPIC CON UNK EDG Gurpreet Sam DO 3 7:37 PM EST - 3 11:59 PM EST Hospital Encounter [facility] 2 6:39 PM EST - 2 11:59 PM EST Hospital Encounter HST EPIC CON UNK COV [facility] 0 8:50 AM EST - 0 11:59 PM EST Hospital Encounter HST EPIC CON UNK EDG Hilary Acosta MD 9 2:20 PM EDT - 9 11:59 PM EDT Emergency HST EPIC CON UNK EDG Hilary Quinonez MD Allergies Active Allergy Reactions Criticality Noted Date Comments Penicillins 03/13/2010 Sulfa (Sulfonamide Antibiotics) 02/17 Erythromycin 03/13/2010 Codeine 03/13/2010 Cefuroxime Axetil 03/13/2010 Tegaserod Hydrogen Maleate 0 Levofloxacin Morphine Itching 09/08/2013 Methadone 10/19/2013 Hydroxychloroquine Itching 01/03/2021 Nitrofurantoin Monohyd/M-Cryst Rash 12/06 Medications aspirin 81 mg tablet Take 81 mg by mouth daily. Active oxyCODONE-acetami nophen (PERCOCET) 5-325 mg Oral Tablet Take by mouth every 6 hours as needed for Pain. Active biotin 5,000 mcg Oral Tablet, Rapid Dissolve Take 1 Tab by mouth daily. Active multivit with min-folic acid 200 mcg Oral Tablet, Chewable Take 1 Tab by mouth daily. Active meclizine (ANTIVERT) 25 mg Oral TabletIndications :Dizziness Take 1 Tablet by mouth 3 times daily as needed for Dizziness. 30 Tablet 5 12/10/19 24 Active ketotifen (ZADITOR) 0.025 % (0.035 %) Opht DropsIndications: Allergic conjunctivitis, bilateral Place 1 Drop into both eyes 2 times daily. 10 mL 5 12/10/19 24 Active allopurinoL (ZYLOPRIM) 100 mg Oral TabletIndications :Elevated uric acid in blood Take 1 Tablet by mouth 2 times daily. 180 Tablet 1 11/03/19 25 Active LEVOthyroxine (SYNTHROID) 75 mcg Oral TabletIndications :Acquired hypothyroidism Take 1 Tablet by mouth daily. 90 Tablet 1 11/03/19 25 Active cyclobenzaprine (FLEXERIL) 10 mg Oral TabletIndications :Muscle pain Take 1 Tablet by mouth 3 times daily. 270 Tablet 1 11/29/19 25 Active hydroxychloroquin e (PLAQUENIL) 200 mg Oral TabletIndications :Erosive osteoarthritis of both hands Take 1 Tablet by mouth daily. 90 Tablet 1 11/29/19 25 Active omeprazole (PRILOSEC) 40 mg Oral Capsule, Delayed Release(E.C.)Magdalena cations:Gastroeso phageal reflux disease with esophagitis without hemorrhage Take 1 Capsule by mouth daily. 90 Capsule 1 11/29/19 25 Active propranoloL (INDERAL) 20 mg Oral TabletIndications :Essential hypertension Take 1 Tablet by mouth 2 times daily. 90 Tablet 1 11/29/19 25 Active lidocaine 2 % MM SolutionIndicatio ns:Thrush Take 5 mL by mouth every 2 hours as needed for Pain. 200 mL 12/01/19 25 Active semaglutide 0.25 mg or 0.5 mg (2 mg/3 mL) SubQ Pen InjectorIndicatio ns:Morbid obesity with body mass index of 40.0-49.9 ([facility]) Inject 0.25 mg under the skin once a week for 28 days, THEN 0.5 mg once a week for 14 days. 3 mL 12/01/19 25 025 Active predniSONE (DELTASONE) 10 mg Oral TabletIndications :Dermatitis 40mg(4 pills) today and decrease 5mg(1/2 pill) qd 18 Tablet 12/20/19 25 Active loratadine (CLARITIN) 10 mg Oral TabletIndications :Dermatitis Take 1 Tablet by mouth daily. 30 Tablet 5 12/20/19 25 Active promethazine (PHENERGAN) 25 mg Oral TabletIndications :Nausea TAKE 1 TABLET BY MOUTH EVERY 6 HOURS NEEDED. FOR NAUSEA 100 Tablet 1 12/22/19 25 Active doxycycline hyclate (VIBRA-TABS) 100 mg Oral TabletIndications :Acute bacterial sinusitis Take 1 Tablet by mouth 2 times daily for 10 days. 20 Tablet 12/22/19 25 025 Active fluconazole (DIFLUCAN) 150 mg Oral TabletIndications :Acute vaginitis 1 today repeat every 3 days as needed 3 Tablet 12/22/19 25 Active promethazine (PHENERGAN) 25 mg Oral TabletIndications :Nausea Take 1 Tablet by mouth every 6 hours as needed. for nausea 100 Tablet 1 11/03/19 25 025 Discontinued nystatin (MYCOSTATIN) 100,000 unit/mL Oral SuspensionIndicat ions:Thrush Take 5 mL by mouth 4 times daily for 14 days. 280 mL 12/01/19 25 025 triamcinolone (KENALOG) 0.1 % Top CreamIndications: Rash Apply topically 2 times daily for 10 days. 80 g 12/07/19 25 025 Active Problems Patient Care Coordination No te Formatting of this note migh t be different from the original. uds 02/07/16 peter [id number] [facility] 06/01/2012 , Pt due for hemoccult and colonoscopy screening 05/31/2014 Needs LDL screening HCC audit completed by Clementina Cornelius RN on 02/05/2022. Problem Noted Date Diagnosed Date Prediabetes 11/02/2024 Morbid (severe) obesity due to excess calories 0 08/19/2023 Overview (08/19/2023): Noted by HARMONY Jones MD last documented on [id number] Major depressive disorder, s apolinar episode, in partial remission 08/19/2023 Overview (08/19/2023): Noted by Rexter last documented on [id number] Erosive osteoarthritis of both hands 12/04/2020 CKD stage G2/A2, GFR 60-89 a nd albumin creatinine ratio 30-299 mg/g 09/18/2020 Overview (09/18/2020): eGFR ~ 60 ml/min Renal USN 07/24/20 showed no evidence of active obstructive uropathy; 10.0 cm.right & 10.7 cm. Left kidney without hydronephrosis, solid-appearing mass, or shadowing stone.The bladder was sonographically normal. Has been on Meloxicam for many years. Assessment & Plan (09/18/2020 12:44 PM EST): Unremarkable UA here today. For now asked to limit NSAIDs else no further work up. See back with labs post DC of NSAIDs Personal history of colonic polyps 03/23/2017 Overview (04/05/2017): 1 tubular adenoa - recommend repeat colonoscopy in 5 years Lipoma of left lower extremity 03/04/2017 MICHAEL (obstructive sleep apnea) 08/02/2015 WILLIE (generalized anxiety disorder) 08/27/2011 DJD 06/25/2011 Overview (09/18/2020): S/P spine surgeries & L TKR Assessment & Plan (09/18/2020 12:42 PM EST): Nothing new. Fibromyalgia 03/27/2011 Overview (11/13/2013): Pt with chronic pain Esophageal reflux 02/19/2010 Hypertension 02/19/2010 Overview (09/18/2020): On Propranolol & Zestoretic. Assessment & Plan (09/18/2020 12:41 PM EST): Current BP control seems reasonable & would keep drug therapy unchanged. Unspecified hypothyroidism 02/19/2010 Morbid obesity with body mass index of 40.0-49.9 Overview (09/18/2020): complicates all aspects of medical care & rehab from acute illness. Assessment & Plan (09/18/2020 12:43 PM EST): senior care challenge which along with chronic back pain limits ability to exercise Lupus (systemic lupus erythematosus) Resolved Problems Problem Noted Date Diagnosed Date Resolved Date Systemic lupus erythematosus 05/23/2024 05/23/2024 Type 2 diabetes mellitus wit h diabetic polyneuropathy 08/19/2023 08/19/2023 Overview (08/19/2023): Noted by Rexter last documented on [id number] Viral infection 08/19/2023 08/23/2023 Leg pain 08/19/2023 08/23/2023 Chronic kidney disease, stage 3a 08/19/2023 08/23/2023 Overview (08/19/2023): Noted by GABO Jones APRN last documented on [id number] Claudication 01/10/2019 11/28/2021 Controlled type 2 diabetes m ellitus with stage 2 chronic kidney disease 09/21/2018 9 Overview (09/21/2018): Addressed in OV 1-18-19 Acute renal insufficiency 11/13/2013 Overview (11/13/2013): Pt denies N/V/D, but could be some dehydration--add IVFs and recheck Also with some voiding difficulty--will check PVR and U/A Chronic pain 11/13/2013 12/01/2016 Overview (11/13/2013): Pt previously saw Pain Management/Dr Downing-but was fired per her report--ran out of Percocet 5-7 days ago and Ativan 2 days ago--thus some withdrawal playing a role ZENG (headache) 09/22/2011 12/01/2016 Coronary artery spasm 12/25/20102015 Nausea with vomiting 02/19/2010 017 Chest pain, unspecified 02/19/201011/16 Overview (11/13/2013): No evidence of ACS Pt had angio in 2008 without evidence of CAD. Will check ST while here Labyrinthitis 02/19/2010 12/01/2016 Immunizations Immunization Administration Dates Next Due Hepatitis B (Recombinant), Adjuvanted 01/13/2019 Influenza High Dose 05/11/2024 Influenza Vaccine Quadrivalent 8,05/17/2017,04/06/2016,05/01,04/11/2014 Influenza Vaccine, Unspecifi ed Formulation 04/26/2013,03/25/2012,05/15/2011,04/29 Influenza Virus Vaccine Quad rivalant, Flublok 04/22/2020,06/12/2019 LAST MANUFACTURED 2010-Pneum ococcal Conjugate 7 Valent 07/19/2008 Pneumococcal Polysaccharide 23 Valent 01/13/2019 Quadrivalent Influenza High Dose 04/15/2023 Tdap 08/15/2024,07/19/2008 Zoster Recombinant 05/14/2023,01/04/2023 Family History Medical History Relation Name Comments Cancer Father colon Colon Cancer Father Early Father cancer at 66 Vision Loss Father Early Mother at 60 aneu yrsm Heart Disease Mother Miscarriages / Stillbirths Mother x 4 Vision Loss Mother Depression Paternal Aunt Cancer Paternal Grandfather colon Colon Cancer Paternal Grandfather Arthritis Paternal Grandmother Diabetes Paternal Grandmother Heart Disease Paternal Grandmother Stroke Paternal Grandmother Vision Loss Paternal Grandmother Colon Cancer Paternal Uncle Allergies Neg Hx Bleeding Prob Neg Hx Cirrhosis Neg Hx Colon Polyps Neg Hx Crohn's Disease Neg Hx Hearing Loss Neg Hx Liver Disease Neg Hx Migraines Neg Hx Thyroid Disease Neg Hx Relation Name Status Comments Father Mother Paternal Aunt Paternal Grandfather Paternal Grandmother Paternal Uncle Social History Smoking Status as of 12/28/2024 Tobacco Use Types Packs/Day Years Used Date Smoking Tobacco: Never Assessed Overall Financial Resource Strain (CARDIA) Answe r Date Recorded How hard is it for you to pa y for the very basics like food, housing, medical care, and heating? Not very hard 08/17/2024 PHQ-2 Answer Date Recorded PHQ-2 Total Score 0 11/02/2024 [facility] - Occupational Stress [...] things needed for daily living? No 08/17/2024 Sex and Gender Information Value Date Recorded Sex Assigned at Not on file Legal Sex Female 8:05 AM EDT Gender Identity Not on file Sexual Orientation Not on file Last Filed Vital Signs Vital Sign Reading Time Taken Comments Blood Pressure 126/72 12/19/2024 2:47 PM EDT Pulse 70 12/19/2024 2:47 PM EDT Temperature 37 C (98.6 F) 12/06/2024 12:59 PM EDT Respiratory Rate 14 03/10/2024 1:12 PM EDT Oxygen Saturation 98% 12/19/2024 2:4 7 PM EDT Inhaled Oxygen Concentration - - Weight 113.4 kg (250 lb) 11/02/2024 3:2 0 PM EDT pt refused scale Height 162.6 cm (5' 4 ) 12/06/2024 12:5 9 PM EDT Body Mass Index 42.91 11/02/2024 3:20 PM EDT Plan of Treatment Not on file Procedures Procedure Name Priority Date/Time Associated Diagnosis Comments URIC ACID Routine 11/30/2024 1:33 PM EDT Elevated uric acid in blood THYROID STIMULATING HORMONE Routine 11/16 1:33 PM EDT Acquired hypothyroidism CBC WITH DIFF Routine 11/30/2024 1:33 PM EDT Medicare annual wellness visit, subsequent COMPREHENSIVE METABOLIC PANEL Routine 11/30/2024 1:33 PM EDT Medicare annual wellness visit, subsequent Hypertension HEMOGLOBIN A1C Routine 11/30/2024 1:33 PM EDT Prediabetes SEP URINALYSIS POC Routine 11/30/2024 1:05 PM EDT Acute recurrent cystitis URINE CULTURE (NO STAIN) Routine 025 1:03 PM EDT Urinary frequency T4, FREE (THYROXINE) Routine 08/15/2024 2:35 PM EST Acquired hypothyroidism COMPREHENSIVE METABOLIC PANEL Routine 08/15/2024 2:35 PM EST Hypertension TSH REFLEX TO FT4 Routine 08/15/2024 2:35 PM EST Acquired hypothyroidism TSH REFLEX TO FT4 Routine 03/10/2024 1:45 PM EDT Frequent falls Fatigue, unspecified type CBC WITH DIFF Routine 03/10/2024 1:45 PM EDT Frequent falls Fatigue, unspecified type COMPREHENSIVE METABOLIC PANEL Routine 03/10/2024 1:45 PM EDT Frequent falls Fatigue, unspecified type SEDIMENTATION RATE AUTOMATED Routine 1:45 PM EDT Arthritis RHEUMATOID FACTOR QUANTITATIVE Routine 03/10/2024 1:45 PM EDT Arthritis ANTINUCLEAR ANTIBODIES (SHANTI) SCREEN BY SIDNEY W/ REFLEX TO IFA Routine 03/10/2024 1:45 PM EDT Arthritis URIC ACID Routine 03/10/2024 1:45 PM EDT Arthritis LIPID PANEL REFLEX Routine 03/10/2024 1:45 PM EDT Hypertriglyceri demia URINALYSIS Routine 10/08/2023 12:48 PM EDT Urinary frequency URINE CULTURE (NO STAIN) Routine 024 12:48 PM EDT Urinary frequency XR CERVICAL SPINE AP LATERAL ODONTOID AND OBLIQUE Routine 09/07/2023 4:54 PM EST DDD (degenerative disc disease), cervical COMPREHENSIVE METABOLIC PANEL Routine 09/07/2023 3:43 PM EST Elevated LFTs HEMOGLOBIN A1C Routine 08/19/2023 3:32 PM EST Prediabetes COMPREHENSIVE METABOLIC PANEL Routine 08/19/2023 3:32 PM EST CKD stage G2/A2, GFR 60-89 and albumin creatinine ratio 30-299 mg/g Prediabetes Chronic kidney disease, stage 3a (HCC) SEP URINALYSIS POC Routine 08/19/2023 3:07 PM EST Urinary frequency URINE CULTURE (NO STAIN) Routine 024 3:06 PM EST Urinary frequency HM MAMMOGRAPHY Routine 06/16/2023 12:06 PM EST POCT ISMAEL SARS ANTIGEN Routine 03/31/20 4:23 PM EDT Encounter for screening for COVID-19 Acute URI POCT ISMAEL INFLUENZA A/B Routine 023 3:08 PM EDT Acute URI COMPREHENSIVE METABOLIC PANEL Routine 01/28/2023 2:05 PM EDT Hypertriglyceri demia T4, FREE (THYROXINE) Routine 01/28/2023 2:05 PM EDT Acquired hypothyroidism TSH REFLEX TO FT4 Routine 01/28/2023 2:05 PM EDT Acquired hypothyroidism LIPID PANEL REFLEX Routine 01/28/2023 2:05 PM EDT Screening, lipid HEMOGLOBIN A1C Routine 01/28/2023 2:05 PM EDT Hypertriglyceri demia Hyperglycemia POCT SARS-COV-2 RNA SEP Routine 10/05/19 12:57 PM EDT Acute non-recurrent maxillary sinusitis URIC ACID Routine 08/28/2022 10:02 AM EST Elevated uric acid in blood TSH REFLEX TO FT4 Routine 08/28/2022 10:02 AM EST Dizziness Acquired hypothyroidism LIPID SCREEN Routine 08/28/2022 10:02 AM EST Routine lab draw Hypertriglyceri demia HEMOGLOBIN A1C Routine 08/28/2022 10:02 AM EST Dizziness Pre-diabetes COMPREHENSIVE METABOLIC PANEL Routine 08/28/2022 10:02 AM EST Dizziness CKD stage G2/A2, GFR 60-89 and albumin creatinine ratio 30-299 mg/g Pre-diabetes CORONAVIRUS 2019 (COVID-19) - REF LAB Routine 08/23/2021 2:22 PM EST Person under investigation for COVID-19 POCT ISMAEL SARS ANTIGEN Routine 08/11/19 3:32 PM EST Suspected COVID-19 virus infection MRI CERVICAL SPINE WO CONTRAST Routine 07/31/2021 8:42 AM EST Lymphadenopathy , cervical CT SOFT TISSUE NECK W CONTRAST Routine 07/11/2021 11:07 AM EST Lymphadenopathy , cervical US HEAD NECK SOFT TISSUE Routine 021 11:21 AM EST Lymphadenopathy , cervical HEMOGLOBIN A1C Routine 07/08/2021 10:30 AM EST Hyperglycemia T4, FREE (THYROXINE) Routine 07/08/2021 10:30 AM EST Acquired hypothyroidism THYROID STIMULATING HORMONE Routine 06/19 10:30 AM EST Acquired hypothyroidism COMPREHENSIVE METABOLIC PANEL Routine 07/08/2021 10:30 AM EST Hypertension CBC WITH DIFF Routine 07/08/2021 10:30 AM EST Hypertension LIPID PANEL REFLEX Routine 07/08/2021 10:30 AM EST Hyperlipidemia, unspecified hyperlipidemia type COMPREHENSIVE METABOLIC PANEL Routine 01/03/2021 3:28 PM EDT WILLIE (generalized anxiety disorder) Fibromyalgia Erosive osteoarthritis of both hands MICHAEL (obstructive sleep apnea) Essential hypertension T4, FREE (THYROXINE) Routine 01/03/2021 3:28 PM EDT WILLIE (generalized anxiety disorder) Fibromyalgia Erosive osteoarthritis of both hands MICHAEL (obstructive sleep apnea) Essential hypertension Acquired hypothyroidism THYROID STIMULATING HORMONE Routine 12/17 3:28 PM EDT WILLIE (generalized anxiety disorder) Fibromyalgia Erosive osteoarthritis of both hands MICHAEL (obstructive sleep apnea) Essential hypertension Acquired hypothyroidism XR HAND BILATERAL PA LATERAL AND OBLIQUE Routine 11/21/2020 12:33 PM EDT Acquired deformity of hand, unspecified laterality Primary osteoarthritis of both hands CYCLIC CITRULLINATED PEPTIDE ANTIBODY, IGG Routine 10/28/2020 1:43 PM EDT Acquired deformity of hand, unspecified laterality C-REACTIVE PROTEIN Routine 10/28/2020 1:43 PM EDT Acquired deformity of hand, unspecified laterality VITAMIN D 25 HYDROXY Routine 10/28/2020 1:43 PM EDT Vitamin D deficiency HEMOGLOBIN A1C Routine 10/28/2020 1:43 PM EDT Hyperglycemia CBC WITH DIFF Routine 10/28/2020 1:43 PM EDT CKD stage G2/A2, GFR 60-89 and albumin creatinine ratio 30-299 mg/g SEDIMENTATION RATE AUTOMATED Routine 06/2021 1:43 PM EDT CKD stage G2/A2, GFR 60-89 and albumin creatinine ratio 30-299 mg/g RENAL FUNCTION PANEL Routine 10/28/2020 1:43 PM EDT CKD stage G2/A2, GFR 60-89 and albumin creatinine ratio 30-299 mg/g URIC ACID Routine 10/28/2020 1:43 PM EDT CKD stage G2/A2, GFR 60-89 and albumin creatinine ratio 30-299 mg/g CT ABD PEL ED FAST W CONTRAST STAT 10/01/2020 4:00 AM EDT SALINE LOCK IV STAT 10/01/2020 2:55 AM EDT BASIC METABOLIC PANEL STAT 10/01/2020 2:27 AM EDT CBC STAT 10/01/2020 2:27 AM EDT URINALYSIS STAT 10/01/2020 1:58 AM EDT URINE CULTURE (NO STAIN) Add-On 1:58 AM EDT EXTRA ARAGON URINE CX STAT 10/01/2020 1:58 AM EDT URINE CULTURE (NO STAIN) Routine 5:16 PM EST UTI (urinary tract infection), uncomplicated SEP URINALYSIS POC Routine 09/24/2020 5:15 PM EST UTI (urinary tract infection), uncomplicated POCT URINALYSIS DIPSTICK Routine 11:15 AM EST CKD stage G2/A2, GFR 60-89 and albumin creatinine ratio 30-299 mg/g CT CHEST WO CONTRAST Routine 09/13/2020 3:15 PM EST Sternum pain XR CLAVICLE RIGHT Routine 08/26/2020 10:16 AM EST Clavicle pain XR CHEST PA AND LATERAL Routine 08/26/19 10:16 AM EST Acute non-recurrent sinusitis of other sinus Acute bronchitis, unspecified organism COVID-19 virus infection US RENAL AND BLADDER Routine 07/24/2020 2:44 PM EST Low kidney function TSH REFLEX TO FT4 Routine 07/10/2020 2:34 PM EST Elevated serum free T4 level Acquired hypothyroidism BASIC METABOLIC PANEL Routine 07/10/2020 2:34 PM EST Low kidney function T4, FREE (THYROXINE) Routine 07/10/2020 2:34 PM EST Hypothyroidism (acquired) LIPID SCREEN Routine 07/10/2020 2:34 PM EST Acquired hypothyroidism Essential hypertension LIPID SCREEN Routine 05/15/2020 11:33 AM EDT Hypothyroidism (acquired) Unspecified essential hypertension CBC WITH DIFF Routine 05/15/2020 11:33 AM EDT Hypothyroidism (acquired) Unspecified essential hypertension BASIC METABOLIC PANEL Routine 05/15/2020 11:33 AM EDT Hypothyroidism (acquired) Unspecified essential hypertension T4, FREE (THYROXINE) Routine 05/15/2020 11:33 AM EDT Hypothyroidism (acquired) Unspecified essential hypertension THYROID STIMULATING HORMONE Routine 04/19 11:33 AM EDT Hypothyroidism (acquired) Unspecified essential hypertension URIC ACID Routine 04/22/2020 4:20 PM EDT Need for influenza vaccination Acquired hypothyroidism Essential hypertension Sinusitis, unspecified chronicity, unspecified location Dizziness Fibromyalgia Gastroesophagea l reflux disease with esophagitis Nausea Elevated uric acid in blood CBC WITH DIFF Routine 04/22/2020 4:20 PM EDT Need for influenza vaccination Acquired hypothyroidism Essential hypertension Sinusitis, unspecified chronicity, unspecified location Dizziness Fibromyalgia Gastroesophagea l reflux disease with esophagitis Nausea Elevated uric acid in blood CORONAVIRUS 2019 (COVID-19) - REF LAB Routine 02/13/2020 4:54 PM EDT Suspected COVID-19 virus infection XR ANKLE RIGHT AP LATERAL AND OBLIQUE Routine 02/01/2020 5:22 PM EDT Capsulitis of ankle, right XR FOOT BILATERAL AP LATERAL AND OBLIQUE STANDING Routine 02/01/2020 5:22 PM EDT Arthritis of right foot Arthritis of left foot COMPREHENSIVE METABOLIC PANEL Routine 02/01/2020 4:16 PM EDT Abnormal glucose HEMOGLOBIN A1C Routine 02/01/2020 4:16 PM EDT Abnormal glucose TSH REFLEX TO FT4 Routine 02/01/2020 4:16 PM EDT Hypothyroidism (acquired) Subjective memory complaints CBC WITH DIFF Routine 02/01/2020 4:16 PM EDT Subjective memory complaints HEPATIC FUNCTION PANEL Routine 0 3:51 PM EST Acquired hypothyroidism Essential hypertension BASIC METABOLIC PANEL Routine 08/02/2019 3:51 PM EST Acquired hypothyroidism Essential hypertension CBC WITH DIFF Routine 08/02/2019 3:51 PM EST Acquired hypothyroidism Essential hypertension HEMOGLOBIN A1C Routine 08/02/2019 3:51 PM EST Hyperglycemia T4, FREE (THYROXINE) Routine 08/02/2019 3:51 PM EST Acquired hypothyroidism THYROID STIMULATING HORMONE Routine 07/19 3:51 PM EST Acquired hypothyroidism HEPATIC FUNCTION PANEL Routine 9 11:03 AM EST WILLIE (generalized anxiety disorder) Seasonal allergic rhinitis due to pollen Unspecified essential hypertension Acquired hypothyroidism Fibromyalgia T4, FREE (THYROXINE) Routine 06/20/2019 11:03 AM EST WILLIE (generalized anxiety disorder) Seasonal allergic rhinitis due to pollen Unspecified essential hypertension Acquired hypothyroidism Fibromyalgia THYROID STIMULATING HORMONE Routine 09/2018 11:03 AM EST WILLIE (generalized anxiety disorder) Seasonal allergic rhinitis due to pollen Unspecified essential hypertension Acquired hypothyroidism Fibromyalgia CBC WITH DIFF Routine 06/20/2019 11:03 AM EST WILLIE (generalized anxiety disorder) Seasonal allergic rhinitis due to pollen Unspecified essential hypertension Acquired hypothyroidism Fibromyalgia LIPID SCREEN Routine 06/20/2019 11:03 AM EST WILLIE (generalized anxiety disorder) Seasonal allergic rhinitis due to pollen Unspecified essential hypertension Acquired hypothyroidism Fibromyalgia BASIC METABOLIC PANEL Routine 06/20/2019 11:03 AM EST Serum potassium elevated MRI LUMBAR SPINE WO CONTRAST Routine 6:15 PM EDT Low back pain, unspecified back pain laterality, unspecified chronicity, unspecified whether sciatica present Degeneration of lumbar intervertebral disc HEMOGLOBIN A1C Routine 01/30/2019 1:54 PM EDT Hyperglycemia THYROID STIMULATING HORMONE Routine 01/16 1:54 PM EDT Essential hypertension LIPID SCREEN Routine 01/30/2019 1:54 PM EDT Essential hypertension CBC WITH DIFF Routine 01/30/2019 1:54 PM EDT Essential hypertension COMPREHENSIVE METABOLIC PANEL Routine 01/30/2019 1:54 PM EDT Essential hypertension URIC ACID Routine 09/22/2018 2:12 PM EST Arthralgia of both hands Pain in joints of both feet CREATINE KINASE Routine 09/22/2018 2:12 PM EST Arthralgia of both hands Pain in joints of both feet ANTINUCLEAR ANTIBODIES (SHANTI) SCREEN BY SIDNEY W/ REFLEX TO IFA Routine 09/22/2018 2:12 PM EST Arthralgia of both hands Pain in joints of both feet SEDIMENTATION RATE AUTOMATED Routine 01/2019 2:12 PM EST Arthralgia of both hands Pain in joints of both feet RHEUMATOID FACTOR QUANTITATIVE Routine 09/22/2018 2:12 PM EST Arthralgia of both hands Pain in joints of both feet VA US LOWER EXTREMITY ARTERIAL PHYSIOLOGICAL Routine 09/01/2018 1:10 PM EST Claudication Lumbar radiculopathy Numbness of right foot HEMOGLOBIN A1C Routine 08/05/2018 4:18 PM EST Controlled type 2 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 disease, unspecified whether senior care insulin use (HCC) COMPREHENSIVE METABOLIC PANEL Routine 08/05/2018 4:18 PM EST Hyperlipidemia with target LDL less than 100 BASIC METABOLIC PANEL Routine 06/17/2018 3:26 PM EST Increased potassium in the blood HEPATIC FUNCTION PANEL Routine 8 3:26 PM EST Fatty liver LIPID PANEL REFLEX Routine 06/17/2018 3:26 PM EST Hyperlipidemia with target LDL less than 100 THYROID STIMULATING HORMONE Routine 05/21 3:26 PM EST Acquired hypothyroidism MM MAMMO DIGITAL DIAGNOSTIC W CAD BILAT Routine 04/06/2018 2:17 PM EDT Abnormal mammogram Breast calcification, right T4, FREE (THYROXINE) Routine 03/25/2018 1:08 PM EDT Acquired hypothyroidism THYROID STIMULATING HORMONE Routine 01/2018 1:08 PM EDT Acquired hypothyroidism COMPREHENSIVE METABOLIC PANEL Routine 02/14/2018 3:16 PM EDT Hypertriglyceri demia LIPID SCREEN Routine 02/14/2018 3:16 PM EDT Unspecified essential hypertension MRI LUMBAR SPINE WO CONTRAST Routine 06/2018 1:11 PM EDT Lumbar radiculopathy ANAEROBIC CULTURE (NO STAIN) Routine 01/2018 1:00 PM EDT Chronic maxillary sinusitis WOUND CULTURE (STAIN INCLUDED) Routine 11/22/2017 1:00 PM EDT Chronic maxillary sinusitis ANAEROBIC CULTURE (NO STAIN) Routine 01/2018 1:00 PM EDT Chronic maxillary sinusitis WOUND CULTURE (STAIN INCLUDED) Routine 11/22/2017 1:00 PM EDT Chronic maxillary sinusitis XR ABDOMEN SUPINE ERECT AND DECUBITUS Routine 11/17/2017 5:04 PM EDT Constipation, chronic CT SINUS LAND GURPREET WO CONTRAST Routine 11/16/2017 12:46 PM EDT Chronic sinusitis, unspecified location URINALYSIS STAT 11/11/2017 9:26 PM EDT EXTRA ARAGON URINE CX STAT 11/11/2017 9:26 PM EDT COMPREHENSIVE METABOLIC PANEL STAT 11/11/2017 9:06 PM EDT LIPASE LEVEL STAT 11/11/2017 9:06 PM EDT CBC WITH DIFF STAT 11/11/2017 9:06 PM EDT MISCELLANEOUS LAB Routine 10/26/2017 1:58 PM EDT Fatty liver Obesity, Class III, BMI 40-49.9 (morbid obesity) (HCC) PLATELET COUNT Callback 10/26/2017 1:57 PM EDT Fatty liver Obesity, Class III, BMI 40-49.9 (morbid obesity) (HCC) CT ABDOMEN PELVIS WO ORAL OR IV CONTRAST Routine 10/15/2017 2:12 PM EDT Periumbilical abdominal pain Abdominal distension US RIGHT UPPER QUADRANT Routine 10/16/19 18 2:02 PM EDT Epigastric abdominal pain HEMOGLOBIN A1C Routine 10/15/2017 1:29 PM EDT Blood glucose elevated BASIC METABOLIC PANEL Routine 10/15/2017 1:29 PM EDT Screening for diabetes mellitus (DM) CANCER ANTIGEN 19-9 -REF LAB Routine 12/2017 4:56 PM EST Epigastric abdominal pain LIPID SCREEN Routine 08/24/2017 4:56 PM EST Unspecified essential hypertension HEPATIC FUNCTION PANEL Routine 8 4:56 PM EST Fibromyalgia Acquired hypothyroidism Unspecified essential hypertension Gastroesophagea l reflux disease with esophagitis Chronic sinusitis, unspecified location Epigastric abdominal pain LIPASE LEVEL Routine 08/24/2017 4:56 PM EST Fibromyalgia Acquired hypothyroidism Unspecified essential hypertension Gastroesophagea l reflux disease with esophagitis Chronic sinusitis, unspecified location Epigastric abdominal pain CBC WITH DIFF Routine 08/24/2017 4:56 PM EST Fibromyalgia Acquired hypothyroidism Unspecified essential hypertension Gastroesophagea l reflux disease with esophagitis Chronic sinusitis, unspecified location Epigastric abdominal pain COMPREHENSIVE METABOLIC PANEL Routine 08/24/2017 4:56 PM EST Need for hepatitis C screening test Acute non-recurrent sinusitis of other sinus Unspecified essential hypertension Fibromyalgia Acquired hypothyroidism ANAEROBIC CULTURE (NO STAIN) Routine 1:41 PM EST Acute maxillary sinusitis, recurrence not specified WOUND CULTURE (STAIN INCLUDED) Routine 08/11/2017 1:41 PM EST Acute maxillary sinusitis, recurrence not specified ANAEROBIC CULTURE (NO STAIN) Routine 05/2017 1:28 PM EST Acute maxillary sinusitis, recurrence not specified WOUND CULTURE (STAIN INCLUDED) Routine 06/28/2017 1:28 PM EST Acute maxillary sinusitis, recurrence not specified HEMOGLOBIN A1C Routine 05/17/2017 5:22 PM EDT Hyperglycemia CBC Routine 05/17/2017 5:22 PM EDT Screening, anemia, deficiency, iron VITAMIN B12 LEVEL Routine 05/17/2017 5:22 PM EDT Malaise and fatigue POCT DRUG SCREEN Routine 05/17/2017 2:56 PM EDT WILLIE (generalized anxiety disorder) High risk medications (not anticoagulants) long-term use POCT URINALYSIS DIPSTICK Routine 017 2:55 PM EDT WILLIE (generalized anxiety disorder) Dysuria ANAEROBIC CULTURE (NO STAIN) Routine 12/2016 4:37 PM EDT Chronic maxillary sinusitis WOUND CULTURE (STAIN INCLUDED) Routine 03/24/2017 4:37 PM EDT Chronic maxillary sinusitis PATHOLOGY TISSUE REPORT Routine 03/23/20 17 8:24 AM EDT INTRAOP AIRWAY PLACEMENT Routine 017 8:19 AM EDT COLONOSCOPY-ENDO DEPT ONLY (ANESTHESIA) 03/23/2017 8:10 AM EDT Esophageal dysphagia Lower abdominal pain, unspecified ESOPHAGOGASTRODUODENOSCOPY (ANESTHESIA) 03/23/2017 8:10 AM EDT Esophageal dysphagia Lower abdominal pain, unspecified GMED EGD-COLONOSCOPY Routine 03/23/2017 8:00 AM EDT GLUCOSE METER POC Routine 03/23/2017 7:19 AM EDT DIFFERENTIAL Routine 03/02/2017 2:28 PM EDT CBC WITH DIFF Routine 03/02/2017 2:28 PM EDT Need for hepatitis C screening test Acute non-recurrent sinusitis of other sinus Unspecified essential hypertension Fibromyalgia Acquired hypothyroidism HCV ANTIBODY SCREEN W/ REFLEX Routine 03/02/2017 2:28 PM EDT Need for hepatitis C screening test URIC ACID Routine 03/02/2017 2:28 PM EDT Left wrist pain COMPREHENSIVE METABOLIC PANEL Routine 03/02/2017 2:28 PM EDT Hyperlipidemia with target LDL less than 130 HEMOGLOBIN A1C Routine 03/02/2017 2:28 PM EDT Hyperglycemia T4, FREE (THYROXINE) Routine 03/02/2017 2:28 PM EDT Acquired hypothyroidism TSH REFLEX TO FT4 Routine 03/02/2017 2:28 PM EDT Acquired hypothyroidism CBC Routine 09/23/2016 2:37 PM EST Anemia, unspecified type VITAMIN D 25 HYDROXY Routine 09/23/2016 2:37 PM EST Vitamin D deficiency SCANNED RADIOLOGY REPORT 016 2:58 PM EST DIFFERENTIAL Routine 06/03/2016 4:13 PM EST PT / INR Routine 06/03/2016 4:13 PM EST Pre-op examination Surgery, elective PARTIAL THROMBOPLASTIN TIME Routine 05/19 4:13 PM EST Pre-op examination Surgery, elective HEMOGLOBIN A1C Routine 06/03/2016 4:13 PM EST Pre-op examination Surgery, elective COMPREHENSIVE METABOLIC PANEL Routine 06/03/2016 4:13 PM EST Pre-op examination Surgery, elective CBC WITH DIFF Routine 06/03/2016 4:13 PM EST Pre-op examination Surgery, elective POCT URINALYSIS AUTOMATED Routine 2015 2:31 PM EST Pre-op examination EC ECHOCARDIOGRAM COMPLETE W DOPPLER AND COLOR FLOW MAPPING Routine 05/29/2016 10:49 AM EST Unspecified essential hypertension Morbid obesity due to excess calories (HCC) Precordial pain MICHAEL (obstructive sleep apnea) Preop cardiovascular exam NM MYOCARDIAL PERFUSION SPECT STRESS AND REST Routine 05/29/2016 9:39 AM EST Unspecified essential hypertension Morbid obesity due to excess calories (HCC) Precordial pain MICHAEL (obstructive sleep apnea) Preop cardiovascular exam ST STRESS TEST LEXISCAN Routine 05/29/20 16 9:27 AM EST Unspecified essential hypertension Morbid obesity due to excess calories (HCC) Precordial pain MICHAEL (obstructive sleep apnea) Preop cardiovascular exam US PELVIS AND TRANSVAGINAL NON OB COMPLETE Routine 05/01/2016 12:02 PM EDT Pelvic pain SCANNED EKG 04/08/2016 5:24 PM EDT DIFFERENTIAL Routine 04/06/2016 1:52 PM EDT THYROID STIMULATING HORMONE Routine 03/19 1:52 PM EDT Acquired hypothyroidism Chronic fatigue T4, FREE (THYROXINE) Routine 04/06/2016 1:52 PM EDT Acquired hypothyroidism Chronic fatigue HEMOGLOBIN A1C Routine 04/06/2016 1:52 PM EDT Chronic fatigue Hyperglycemia CBC WITH DIFF Routine 04/06/2016 1:52 PM EDT Pelvic pain Insomnia, persistent Acquired hypothyroidism Unspecified essential hypertension Chronic fatigue XR CHEST PA AND LATERAL IFTIKHAR 04/01/20 16 2:42 PM EDT DIFFERENTIAL STAT 04/01/2016 1:58 PM EDT TROPONIN-T STAT 04/01/2016 1:58 PM EDT BASIC METABOLIC PANEL STAT 04/01/2016 1:58 PM EDT CBC WITH DIFF STAT 04/01/2016 1:58 PM EDT EK EKG 12 LEAD STAT 04/01/2016 1:14 PM EDT XR KNEE RIGHT AP LATERAL AND SUNRISE STANDING Routine 02/12/2016 9:17 AM EDT Right knee pain LIPID SCREEN Routine 02/12/2016 9:07 AM EDT Diabetes type 2, controlled (HCC) HB-1 CUSTOM UDS PANEL-QUEST Routine 01/17 10:41 PM EDT Encounter for medication management POCT URINALYSIS AUTOMATED Routine 2015 2:06 PM EDT Diabetes type 2, controlled (HCC) Dysuria POCT MICROALBUMIN Routine 02/07/2016 2:01 PM EDT Diabetes type 2, controlled (HCC) THYROID STIMULATING HORMONE Routine 10/17 6:53 PM EDT Acquired hypothyroidism T4, FREE (THYROXINE) Routine 11/01/2015 6:53 PM EDT Acquired hypothyroidism DIFFERENTIAL Routine 08/02/2015 9:59 AM EST CBC WITH DIFF Routine 08/02/2015 9:59 AM EST Unspecified essential hypertension COMPREHENSIVE METABOLIC PANEL Routine 08/02/2015 9:59 AM EST Unspecified essential hypertension T4, FREE (THYROXINE) Routine 08/02/2015 9:59 AM EST Acquired hypothyroidism THYROID STIMULATING HORMONE Routine 07/19 9:59 AM EST Acquired hypothyroidism MRI KNEE RIGHT WO CONTRAST Routine 04/10 2:58 PM EDT Knee pain, acute, right Arthritis XR KNEE RIGHT AP LATERAL AND AXIAL Routine 02/21/2015 3:33 PM EDT Right knee pain T4, FREE (THYROXINE) Routine 11/19/2014 2:53 PM EDT Other abnormal glucose Unspecified hypothyroidism THYROID STIMULATING HORMONE Routine 10/2014 2:53 PM EDT Other abnormal glucose Unspecified hypothyroidism HEMOGLOBIN A1C Routine 11/19/2014 2:53 PM EDT Other abnormal glucose Unspecified hypothyroidism DIFFERENTIAL Routine 11/02/2014 1:22 PM EDT CBC WITH DIFF Routine 11/02/2014 1:22 PM EDT Routine check-up COMPREHENSIVE METABOLIC PANEL Routine 11/02/2014 1:22 PM EDT Routine check-up LIPID SCREEN Routine 11/02/2014 1:22 PM EDT Routine check-up THYROID STIMULATING HORMONE Routine 10/17 1:22 PM EDT Unspecified hypothyroidism HB-1 CUSTOM UDS PANEL-QUEST Routine 09/17 8:38 PM EDT Encounter for long-term (current) use of other medications MRI LUMBAR SPINE WO CONTRAST Routine 1:28 PM EST Thoracic or lumbosacral neuritis or radiculitis, unspecified MM MAMMO DIGITAL DIAGNOSTIC RIGHT Routine 08/01/2014 1:54 PM EST Breast calcification, right MM MAMMO DIGITAL SCREENING W CAD BILAT Routine 06/20/2014 3:01 PM EST Other screening mammogram XR KNEE RIGHT AP LATERAL AND AXIAL Routine 06/20/2014 2:32 PM EST Knee pain, acute, unspecified laterality XR KNEE LEFT AP LATERAL AND AXIAL Routine 06/20/2014 2:32 PM EST Knee pain, acute, unspecified laterality XR HUMERUS LEFT AP LATERAL Routine 06/20 2:32 PM EST Left arm pain POCT URINALYSIS AUTOMATED Routine 2013 1:27 PM EST Bilateral lower abdominal cramping DIFFERENTIAL Routine 04/11/2014 2:30 PM EDT LUTEINIZING HORMONE Routine 04/11/2014 2:30 PM EDT Postmenopausal FOLLICLE STIMULATING HORMONE LEVEL Routine 04/11/2014 2:30 PM EDT Postmenopausal COMPREHENSIVE METABOLIC PANEL Routine 04/11/2014 2:30 PM EDT Malar rash CBC WITH DIFF Routine 04/11/2014 2:30 PM EDT Malar rash ANTINUCLEAR ANTIBODIES (SHANTI) SCREEN BY SIDNEY W/ REFLEX TO IFA Routine 04/11/2014 2:30 PM EDT Malar rash POCT MICROALBUMIN Routine 04/11/2014 1:34 PM EDT Flank pain POCT URINALYSIS AUTOMATED Routine 2013 1:33 PM EDT Flank pain POCT URINALYSIS AUTOMATED Routine 2013 1:25 PM EDT UTI (urinary tract infection) BASIC METABOLIC PANEL Routine 11/17/2013 4:01 PM EDT Acute renal insufficiency THYROID STIMULATING HORMONE Routine 08/2013 4:01 PM EDT Acute renal insufficiency SCANNED RHYTHM STRIPS 11/14/2013 10:02 AM EDT IP CONSULT TO CARDIOLOGY Routine 014 9:56 AM EDT Procedure Note - Moises Ortega MD - 11/14/2013 11:29 AM EDTThis note is in progress. Cardiology Consult Moises Ortega MD, [facility], [facility] Name: Karoline William : 1955 Chief Complaint: No chief complaint on file. 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 Authorizing Provider LORazepam (ATIVAN) 2 mg tablet Take 2 mg by mouth 3 times daily as neededfor Anxiety. Yes Provider, Historical SUMATRIPTAN SUCCINATE (IMITREX ORAL) Take 1 Tab by mouth as needed. YesProvider, Historical hydrOXYzine (VISTARIL) 25 mg Take 1 Cap by mouth 3 times daily as needed.10/19/13 Yes Cornejo, Viral V, DO levothyroxine (SYNTHROID) 75 mcg tablet TAKE 1 TABLET EVERY DAY 09/28/13Yes Clemente Viral V, DO allopurinol (ZYLOPRIM) 100 mg tablet TAKE 1 TABLET TWICE DAILY 09/28/13Yes Cornejo, Viral V, DO omeprazole (PRILOSEC) 40 mg capsule Take 1 Cap by mouth daily. 09/28/13Yes Clemente, Viral V, DO lisinopril-hydrochlorothiazide (PRINZIDE;ZESTORETIC) 20-25 mg per tabletTake 0.5 Tabs by mouth daily. 07/28/13 Yes Cornejo, Viral V, DO gabapentin (NEURONTIN) 100 mg capsule Take 2 Caps by mouth 3 times daily.05/19/13 Yes Clemente Viral V, DO topiramate (TOPAMAX) 25 mg tablet Take 1 Tab by mouth 2 times daily.05/12/13 Yes Clemente Viral V, DO meloxicam (MOBIC) 15 mg tablet Take 1 Tab by mouth daily. 05/12/13 YesPatel, Viral V, DO amitriptyline (ELAVIL) 50 mg tablet Take 1 Tab by mouth nightly. 05/12/13Yes Clemente Viral V, DO LACTOBACILLUS ACIDOPHILUS (PROBIOTIC ORAL) Take by mouth. Yes Provider,Historical Blood Sugar Diagnostic (ONE TOUCH TEST) Strp 1 box by [facility].(Non-Drug;Combo Route) route 2 times daily. One touch ultra 2 09/21/12 YesAr Vaca MD [facility]Non-Drug; Combo Route) route 2 times daily.09/21/12 Yes Ar Vaca MD oxyCODONE-acetaminophen (PERCOCET) 7.5-500 mg per tablet Take 1 Tab bymouth 2 times daily as needed for Pain. 10/20/11 Yes Ar Vaca MD aspirin 81 mg tablet Take 81 mg by mouth daily. Yes Provider, Historical nitroGLYCERIN (NITROSTAT) 0.[address] under the tongue every 5minutes as needed for Chest pain. Yes Provider, Historical promethazine (PHENERGAN) 50 mg tablet TAKE 1 TABLET BY MOUTH EVERY 12HOURS IF NEEDED FOR NAUSEA 08/02/13 Jose Cornejo V, DO Miscellaneous Medical Supply Kit Hand rail for bath tub dx 780.2,729.1,715.96 04/26/13 Cornejo, Viral V, DO omeprazole (PRILOSEC) 40 mg capsule Take 1 Cap by mouth daily. 11/29/10Della Perez MD Current Outpatient Rx Name Route Sig Dispense Refill DISCONTD: omeprazole (PRILOSEC) 40 mg capsule Oral Take 1 Cap by mouth daily. 30 Cap 0 HOSPITAL MEDICATIONS: Scheduled Meds: Aspirin 325 mg Oral Daily Or aspirin 300 mg Rectal Daily sodium chloride 0.9% Intravenous Q8H NICOLE amitriptyline 50 mg Oral Nightly gabapentin 200 mg Oral TID miconazole Topical Q12H NICOLE allopurinol 100 mg Oral BID levothyroxine 75 mcg Oral DAILY EARLY AM pantoprazole 40 mg Oral BID topiramate 25 mg Oral BID insulin aspart 1-5 Units Subcutaneous QID WM meropenem (MERREM) IVPB (Standard) 0.5 g Intravenous Q8H NICOLE Continuous Infusions: sodium chloride 100 mL/hr at 11/14/13 0556 PRN Meds:acetaminophen, acetaminophen, hydromorphone, ondansetron,ondansetron, nitroGLYCERIN, sodium chloride 0.9%, atropine, EPINEPHrineinjection, miconazole, dextrose 50 % (D50W), glucagon (human recombinant),oxyCODONE-acetaminophen, LORazepam, calcium carbonate SOCIAL HISTORY: History Social History Marital Status: Spouse Name: N/A Number of Children: N/A Years of Education: N/A Occupational History Not on file. Social History Main Topics Smoking status: Never Smoker Smokeless tobacco: Never Used Alcohol Use: No Drug Use: No Sexually Active: Not on file Other Topics Concern Not on file Social History Narrative No narrative on file FAMILY HISTORY: Family History Problem Relation Age of Onset Early Mother at 60 aneuyrsm Heart Disease Mother Miscarriages / Stillbirths Mother x4 Vision Loss Mother Cancer Father colon Early Father cancer at 66 Vision Loss Father Depression Paternal Aunt Arthritis Paternal Grandmother Diabetes Paternal Grandmother Heart Disease Paternal Grandmother Stroke Paternal Grandmother Vision Loss Paternal Grandmother Cancer Paternal Grandfather colon History Social History Marital Status: Spouse Name: N/A Number of Children: N/A Years of Education: N/A Occupational History Not on file. Social History Main Topics Smoking status: Never Smoker Smokeless tobacco: Never Used Alcohol Use: No Drug Use: No Sexually Active: Not on file Other Topics Concern Not on file Social History Narrative No narrative on file Allergies Allergen Reactions Ceftin (Cefuroxime Axetil) Codeine Erythromycin Levaquin (Levofloxacin) Methadone Morphine Itching Penicillins Sulfa (Sulfonamide Antibiotics) Zelnorm (Tegaserod Hydrogen Maleate) Family History Problem Relation Age of Onset Early Mother at 60 aneuyrsm Heart Disease Mother Miscarriages / Stillbirths Mother x4 Vision Loss Mother Cancer Father colon Early Father cancer at 66 Vision Loss Father Depression Paternal Aunt Arthritis Paternal Grandmother Diabetes Paternal Grandmother Heart Disease Paternal Grandmother Stroke Paternal Grandmother Vision Loss Paternal Grandmother Cancer Paternal Grandfather colon ROS: Constitutional: No fever or chills- No weight loss or gain Head: Ear, Nose: No visual changes, No headache, no ear discharge Neck: No sore throat, or neck pain CVS: As mentioned in the HPI- No edema, orthopnea or PND Pulmonary: No cough or sputum production, No wheezing. No MICHAEL Abdomen: No pain, dysphagia, Heart burn,Hematemesis or hematochezia. : No frequency, polyuria or hemturia Endocrine: No thyroid disease- No polydipsia or polyuria Musculoskelatal: No arthralgias, or myalgias- No Back pain. CLOAK ROOM ATTENDANT: No new TIA/Stroke - No balance abnormalities-No dysarthria Skin: No rash or eruptions Hematological: No easy bruisability or chronic infections or anemia Psychiatric: No hallucinations- anxiety Objective Filed Vitals: 11/14/13 0835 BP: 117/78 Pulse: 86 Temp: 97.6 F (36.4 C) Resp: 18 Exam: GENERAL APPEARANCE: Alert- Appears at the stated age-In no acute distres HEENT: Normocephalic, Atraumatic RAEGAN NECK: No JVD No Bruit -No cervical lymph nodes ENDOCRINE: No Thyromegaly RESPIRATORY: Normal breath sounds bilateral - No Rhonch or Rale HEART: Normal S1 S2- No S3, S4 -No Murmur, rub or taveras VASCULAR: Normal pulses, equal, bilateral-No ischemic ulcers ABDOMEN: Soft, nontender, no organomegaly, no distension NEUROLOGIC: Alert, oriented X 3- Grossly intact, nonfocal SKIN: No rash - No cynosis EXTREMITIES: No edema @THISVISIT@ Labs Lab Results Component Value Date CHOLESTEROL 204* 11/13/2013 CHOLESTEROL 156 01/28/2013 CHOLESTEROL 178 05/21/2010 Lab Results Component Value Date HDL 87 11/13/2013 HDL 37* 01/28/2013 HDL 44 05/21/2010 Lab Results Component Value Date LDLCALC 99 11/13/2013 LDLCALC 94 01/28/2013 LDLCALC 113 05/21/2010 Lab Results Component Value Date TRIG 88 11/13/2013 TRIG 127 01/28/2013 TRIG 107 05/21/2010 Lab Results Component Value Date CREATININE 1.14* 11/14/2013 BUN 29* 11/14/2013 NA 138 11/14/2013 K 4.0 11/14/2013 CL 102 11/14/2013 CO2 25 11/14/2013 Lab Results Component Value Date ALT 13 11/13/2013 AST 12 11/13/2013 ALKPHOS 94 11/13/2013 Lab Results Component Value Date WBC 11.8* 11/14/2013 HGB 12.2 11/14/2013 HCT 37.2 11/14/2013 MCV 86.1 11/14/2013 PLT 237 11/14/2013 Lab Results Component Value Date HGBA1C 6.0 10/19/2013 IMAGING: Nm Myocardial Perfusion Spect Stress And Rest 11/14/2013 SPECT RESULTS Technical Quality: Technically adequatestudy Raw Data Analysis: No clinically relevant artifact Perfusion:No definite reversible perfusion defect. FUNCTION (calculatedvia Gated SPECT) PostStress LV EF:77 % TID: 0.9 EDV: 69 ml (70-100ml) ESV: 16 ml (30-50 ml) EDVI: 28ml/m? (30-50 ml/m?) ESVI: 6 ml/m? (15-30 ml/m?)Technical Quality: Gated SPECT appears to be visually accurate LVSize & Function: Normal left ventricular size and function. LVRegional Function: No wall motion abnormalities. Right Ventricle:Normal perfusion. IMPRESSIONS There are no significant reversibledefects. Normal stress test. Normal LV perfusion study. Ek Ekg 12 Lead 11/14/2013 NOTICE: Preliminary Tracing available for review; FinalInterpretation by physician to follow. Scanned Rhythm Strips 11/14/2013 Ordered by an unspecified provider. Scanned Rhythm Strips 11/13/2013 Ordered by an unspecified provider. Scanned Radiology Report 11/14/2013 Ordered by an unspecified provider. IMPRESSION: Patient Active Problem List Diagnosis Date Noted Acute renal insufficiency 11/13/2013 Priority: High Pt denies N/V/D, but could be some dehydration--add IVFs and recheckAlso with some voiding difficulty--will check PVR and U/A Chest pain, unspecified 02/19/2010 Priority: High No evidence of ACS Pt had angio in 2008 without evidence of CAD. Tera JACKMAN while here Chronic pain 11/13/2013 Priority: Medium Pt previously saw Pain Management/Dr Downing-but was fired per herreport--ran out of Percocet 5-7 days ago and Ativan 2 days ago--thus somewithdrawal playing a role Type II or unspecified type diabetes mellitus without mention ofcomplication, not stated as uncontrolled Priority: Medium Diet controlled Fibromyalgia 03/27/2011 Priority: Medium Pt with chronic pain Unspecified essential hypertension 02/19/2010 Priority: Medium Unspecified hypothyroidism 02/19/2010 Priority: Medium ZENG (headache) 09/22/2011 Obesity WILLIE (generalized anxiety disorder) 08/27/2011 Left knee DJD 06/25/2011 Coronary artery spasm 12/25/2010 Nausea with vomiting 02/19/2010 Labyrinthitis, unspecified 02/19/2010 Esophageal reflux 02/19/2010 Assessment - Plan 1- Atypical CP R/o for [facility] Stress test negative Will add low dose CCB for ? Spasm 2- Echo 6 months ago Trace MR/AI Conservative May be d/alejandro F/u with Dr Crump GLUCOSE METER POC Routine 11/14/2013 8:01 AM EDT SCANNED RADIOLOGY REPORT 014 7:08 AM EDT EK EKG 12 LEAD Routine 11/14/2013 6:49 AM EDT DIFFERENTIAL Routine 11/14/2013 5:25 AM EDT BASIC METABOLIC PANEL Routine 11/14/2013 5:25 AM EDT CBC WITH DIFF Routine 11/14/2013 5:25 AM EDT SCANNED RHYTHM STRIPS 11/13/2013 8:05 PM EDT GLUCOSE METER POC Routine 11/13/2013 7:49 PM EDT URINALYSIS Routine 11/13/2013 4:52 PM EDT URINE CULTURE (NO STAIN) Routine 014 4:52 PM EDT GLUCOSE METER POC Routine 11/13/2013 4:01 PM EDT NM MYOCARDIAL PERFUSION SPECT STRESS AND REST IFTIKHAR 11/13/2013 2:[address] STRESS TEST LEXISCAN Routine 11/14/19 14 1:59 PM EDT SCANNED RHYTHM STRIPS 11/13/2013 9:22 AM EDT SCANNED RHYTHM STRIPS 11/13/2013 9:22 AM EDT GLUCOSE METER POC Routine 11/13/2013 9:20 AM EDT EK EKG 12 LEAD Routine 11/13/2013 6:45 AM EDT DIFFERENTIAL Routine 11/13/2013 4:53 AM EDT TROPONIN-T Timed 11/13/2013 4:53 AM EDT LIPID SCREEN Routine 11/13/2013 4:53 AM EDT MAGNESIUM LEVEL Routine 11/13/2013 4:53 AM EDT HEPATIC FUNCTION PANEL Routine 4 4:53 AM EDT THYROID STIMULATING HORMONE Routine 10/18 4:53 AM EDT PARTIAL THROMBOPLASTIN TIME Routine 10/18 4:53 AM EDT PT / INR Routine 11/13/2013 4:53 AM EDT BASIC METABOLIC PANEL Routine 11/13/2013 4:53 AM EDT CBC WITH DIFF Routine 11/13/2013 4:53 AM EDT TROPONIN-T Timed 11/13/2013 1:00 AM EDT EK EKG 12 LEAD STAT 11/12/2013 10:59 PM EDT DIFFERENTIAL STAT 11/12/2013 10:30 PM EDT TROPONIN-T STAT 11/12/2013 10:30 PM EDT BASIC METABOLIC PANEL STAT 11/12/2013 10:30 PM EDT CBC WITH DIFF STAT 11/12/2013 10:30 PM EDT XR CHEST AP PORTABLE IFTIKHAR 11/12/2013 10:08 PM EDT EK EKG 12 LEAD STAT 11/12/2013 9:59 PM EDT THYROID STIMULATING HORMONE Routine 09/2013 3:02 PM EDT Unspecified hypothyroidism COMPREHENSIVE METABOLIC PANEL Routine 10/19/2013 3:02 PM EDT Type II or unspecified type diabetes mellitus without mention of complication, not stated as uncontrolled (HCC) Pruritic rash HEMOGLOBIN A1C Routine 10/19/2013 3:02 PM EDT Type II or unspecified type diabetes mellitus without mention of complication, not stated as uncontrolled (HCC) POCT MICROALBUMIN Routine 10/19/2013 2:27 PM EDT Type II or unspecified type diabetes mellitus without mention of complication, not stated as uncontrolled (HCC) POCT URINALYSIS AUTOMATED Routine 2013 2:16 PM EDT UTI (urinary tract infection) XR ANKLE RIGHT AP LATERAL AND OBLIQUE IFTIKHAR 10/15/2013 5:[address] HEAD WO CONTRAST STAT 09/08/2013 4:03 PM EST EK EKG 12 LEAD STAT 09/08/2013 3:50 PM EST PDM, HEROIN METAB,QN,W/MEDMATCH,U-QUEST Routine 08/02/2013 12:00 AM EST PDM,METHYLPHENIDATE METAB,QN,W/MEDMATCH,U-QUEST Routine 08/02/2013 12:00 AM EST PDM, COCAINE METAB, W/CONF,W/MEDMATCH,U-QUEST Routine 08/02/2013 12:00 AM EST PDM,BENZODIAZEPINES W/CONF,W/MEDMATCH,U-QUEST Routine 08/02/2013 12:00 AM EST PDM, AMPHETAMINES, W/CONF,W/MEDMATCH,U-QUEST Routine 08/02/2013 12:00 AM EST PDM, OXYCODONE, W/CONF,W/MEDMATCH,U-QUEST Routine 08/02/2013 12:00 AM EST PDM, OPIATES, W/CONF,W/MEDMATCH,U-QUEST Routine 08/02/2013 12:00 AM EST PDM, METHADONE, W/CONF,W/MEDMATCH,U-QUEST Routine 08/02/2013 12:00 AM EST PDM,MARIJUANA METAB W/CONF,W/MEDMATCH,U-QUEST Routine 08/02/2013 12:00 AM EST SPECIMEN VALIDITY TEST PANEL-QUEST Routine 08/02/2013 12:00 AM EST SCANNED HOLTER MONITOR 3 3:48 PM EST MRI LUMBAR SPINE WO CONTRAST Routine 08/2012 3:28 PM EST DDD (degenerative disc disease) Lumbar strain HB HOLTER MONITOR RECORD UP TO 48 HOURS Routine 06/19/2013 3:28 PM EST Syncope Type II or unspecified type diabetes mellitus without mention of complication, not stated as uncontrolled (HCC) Unspecified essential hypertension Chest pain, unspecified POCT URINALYSIS AUTOMATED Routine 2012 1:35 PM EST Urgency of urination MRI BRAIN WO CONTRAST Routine 05/04/2013 2:20 PM EDT Syncopal episodes EC ECHOCARDIOGRAM COMPLETE W DOPPLER AND COLOR FLOW MAPPING Routine 05/04/2013 2:08 PM EDT Syncopal episodes VA US CAROTID DUPLEX BILATERAL Routine 05/04/2013 2:08 PM EDT Syncopal episodes DIFFERENTIAL Routine 04/26/2013 2:25 PM EDT THYROID STIMULATING HORMONE Routine 03/2013 2:25 PM EDT Syncopal episodes Unspecified essential hypertension CBC WITH DIFF Routine 04/26/2013 2:25 PM EDT Syncopal episodes Unspecified essential hypertension BASIC METABOLIC PANEL Routine 04/26/2013 2:25 PM EDT Syncopal episodes Unspecified essential hypertension POCT URINALYSIS AUTOMATED Routine 2012 2:16 PM EDT UTI (lower urinary tract infection) POCT EKG Routine 04/26/2013 2:05 PM EDT Syncopal episodes LDL, CALCULATED Routine 01/28/2013 11:50 AM EDT LIPID PANEL REFLEX Routine 01/28/2013 11:50 AM EDT Unspecified essential hypertension Type II or unspecified type diabetes mellitus without mention of complication, not stated as uncontrolled (HCC) HEMOGLOBIN A1C Routine 01/28/2013 11:50 AM EDT Type II or unspecified type diabetes mellitus without mention of complication, not stated as uncontrolled (HCC) CBC Routine 01/28/2013 11:50 AM EDT Type II or unspecified type diabetes mellitus without mention of complication, not stated as uncontrolled (HCC) BASIC METABOLIC PANEL Routine 01/28/2013 11:50 AM EDT Dysuria Type II or unspecified type diabetes mellitus without mention of complication, not stated as uncontrolled (HCC) UTI (lower urinary tract infection) POCT MICROALBUMIN Routine 01/13/2013 3:49 PM EDT Unspecified essential hypertension Dysuria Diabetes mellitus type 2, controlled (HCC) POCT URINALYSIS AUTOMATED Routine 2012 3:48 PM EDT Unspecified essential hypertension Dysuria Diabetes mellitus type 2, controlled (HCC) BASIC METABOLIC PANEL Routine 12/06/2012 5:36 PM EDT Other abnormal blood chemistry T4, FREE (THYROXINE) Routine 11/24/2012 2:11 PM EDT Unspecified hypothyroidism THYROID STIMULATING HORMONE Routine 03/2013 2:11 PM EDT Unspecified hypothyroidism COMPREHENSIVE METABOLIC PANEL Routine 11/24/2012 2:11 PM EDT Abdominal pain RUQ abdominal pain POCT URINALYSIS AUTOMATED Routine 2012 2:07 PM EDT Abdominal pain DIFFERENTIAL Routine 10/20/2012 5:15 PM EDT THYROID STIMULATING HORMONE Routine 10/2012 5:15 PM EDT Hypothyroidism T4, FREE (THYROXINE) Routine 10/20/2012 5:15 PM EDT Hypothyroidism CBC WITH DIFF Routine 10/20/2012 5:15 PM EDT Hypothyroidism BASIC METABOLIC PANEL Routine 10/20/2012 5:15 PM EDT Hypothyroidism POCT RAPID STREP A Routine 09/28/2012 2:17 PM EDT Fever POCT INFLUENZA A/B Routine 09/28/2012 2:16 PM EDT Fever PDM,BENZODIAZEPINE, QN,W/MEDMATCH,U-QUEST Routine 06/01/2012 1:38 PM EST Encounter for long-term (current) use of other medications PDM PROFILE 1 W/ CONF, W/O MEDMATCH-QUEST Routine 06/01/2012 1:38 PM EST Encounter for long-term (current) use of other medications VITAMIN D 25 HYDROXY Routine 03/25/2012 3:44 PM EDT Vitamin D deficiency THYROID STIMULATING HORMONE Routine 01/2012 3:44 PM EDT Hypothyroid T4, FREE (THYROXINE) Routine 03/25/2012 3:44 PM EDT Hypothyroid LUTEINIZING HORMONE Routine 03/25/2012 3:44 PM EDT Perimenopausal symptoms HEMOGLOBIN A1C Routine 03/25/2012 3:44 PM EDT Hyperglycemia FOLLICLE STIMULATING HORMONE LEVEL Routine 03/25/2012 3:44 PM EDT Perimenopausal symptoms ESTRADIOL LEVEL Routine 03/25/2012 3:44 PM EDT Perimenopausal symptoms CBC Routine 03/25/2012 3:44 PM EDT Unspecified essential hypertension COMPREHENSIVE METABOLIC PANEL Routine 03/25/2012 3:44 PM EDT Unspecified essential hypertension CT ABDOMEN PELVIS W CONTRAST Routine 12/2011 11:14 AM EDT RUQ pain URINE CULTURE (NO STAIN) Routine 012 7:00 PM EDT POCT URINALYSIS DIPSTICK STAT 012 6:03 PM EDT DIFFERENTIAL STAT 03/02/2012 5:32 PM EDT HEPATIC FUNCTION PANEL Routine 2 5:32 PM EDT LIPASE LEVEL STAT 03/02/2012 5:32 PM EDT BASIC METABOLIC PANEL STAT 03/02/2012 5:32 PM EDT CBC WITH DIFF STAT 03/02/2012 5:32 PM EDT MRI LUMBAR SPINE WO CONTRAST Routine 04/2012 2:26 PM EDT Lumbago XR LUMBAR SPINE AP AND LATERAL IFTIKHAR 11/02/2011 3:20 PM EDT SCANNED OR REPORT 08/05/2011 11:34 AM EST COLONOSCOPY 08/05/2011 10:09 AM EST gastritis,hemor rhoids ESOPHAGOGASTRODUODENOSCOPY 08/05 10:09 AM EST gastritis,hemor rhoids PATHOLOGY TISSUE REPORT Routine 08/05/19 12 2:[address] LIMITED SINUSES WO Routine 07/01/2011 2:20 PM EST Recurrent sinusitis MM MAMMO DIGITAL SCREENING W CAD BILAT Routine 05/25/2011 1:54 PM EST Other screening mammogram POCT URINALYSIS AUTOMATED Routine 2010 1:55 PM EDT Urgency of urination CT ABDOMEN PELVIS W CONTRAST STAT 6:11 PM EDT POCT URINALYSIS DIPSTICK STAT 011 4:43 PM EDT DIFFERENTIAL STAT 05/11/2011 4:23 PM EDT LIPASE LEVEL STAT 05/11/2011 4:23 PM EDT HEPATIC FUNCTION PANEL STAT 1 4:23 PM EDT BASIC METABOLIC PANEL STAT 05/11/2011 4:23 PM EDT CBC WITH DIFF STAT 05/11/2011 4:23 PM EDT THYROID STIMULATING HORMONE Routine 03/2011 12:29 PM EDT Weight loss T4, FREE (THYROXINE) Routine 03/27/2011 12:29 PM EDT Weight loss COMPREHENSIVE METABOLIC PANEL Routine 03/27/2011 12:29 PM EDT Weight loss CBC Routine 03/27/2011 12:29 PM EDT Acute sinusitis Nausea & vomiting Weight loss POCT URINALYSIS DIPSTICK Routine 011 2:15 PM EDT Nausea with vomiting POCT URINALYSIS DIPSTICK Routine 011 2:39 PM EDT Abdominal pain, other specified site VITAMIN D, [id number] Routine 12/25 3:03 PM EDT Unspecified labyrinthitis EK EKG 12 LEAD STAT 11/29/2010 10:35 AM EDT XR CHEST AP PORTABLE IFTIKHAR 11/29/2010 9:55 AM EDT DIFFERENTIAL STAT 11/29/2010 9:27 AM EDT LIPASE LEVEL Routine 11/29/2010 9:27 AM EDT D-DIMER STAT 11/29/2010 9:27 AM EDT TROPONIN-I STAT 11/29/2010 9:27 AM EDT BASIC METABOLIC PANEL STAT 11/29/2010 9:27 AM EDT CBC WITH DIFF STAT 11/29/2010 9:27 AM EDT EK EKG 12 LEAD STAT 11/29/2010 9:15 AM EDT XR FOOT RIGHT AP LATERAL AND OBLIQUE Routine 11/05/2010 3:56 PM EDT Foot pain DX BONE DENSITY AXIAL SKELETON Routine 11/05/2010 3:43 PM EDT Loss of height Symptomatic menopausal or female climacteric states XR CERVICAL SPINE AP LATERAL ODONTOID AND OBLIQUE IFTIKHAR 10/28/2010 3:[address] HEAD WO CONTRAST STAT 10/28/2010 3:29 PM EDT T4, FREE (THYROXINE) Routine 08/14/2010 2:26 PM EST Unspecified essential hypertension Unspecified hypothyroidism THYROID STIMULATING HORMONE Routine 07/20 2:26 PM EST Unspecified essential hypertension Unspecified hypothyroidism COMPREHENSIVE METABOLIC PANEL Routine 08/14/2010 2:26 PM EST Unspecified essential hypertension Unspecified hypothyroidism EC ECHOCARDIOGRAM COMPLETE W DOPPLER AND COLOR FLOW MAPPING Routine 05/27/2010 11:07 AM EST Syncope MRI BRAIN WO CONTRAST Routine 05/27/2010 10:00 AM EST Syncope VA US CAROTID DUPLEX BILATERAL Routine 05/27/2010 9:41 AM EST Syncope LDL, CALCULATED Routine 05/21/2010 9:00 AM EDT T4, FREE (THYROXINE) Routine 05/21/2010 9:00 AM EDT TSH REFLEX TO FT4 Routine 05/21/2010 9:00 AM EDT Unspecified essential hypertension Unspecified hypothyroidism LIPID PANEL REFLEX Routine 05/21/2010 9:00 AM EDT Unspecified essential hypertension Unspecified hypothyroidism COMPREHENSIVE METABOLIC PANEL Routine 05/21/2010 9:00 AM EDT Unspecified essential hypertension Unspecified hypothyroidism SCANNED EKG 05/06/2010 12:00 AM EDT SCANNED RADIOLOGY REPORT 12:00 AM EDT POCT EKG Routine 04/29/2010 3:10 PM EDT Syncope SCANNED LABS 04/29/2010 12:00 AM EDT SCANNED RADIOLOGY REPORT 12:00 AM EDT SCANNED EKG 04/25/2010 12:00 AM EDT SCANNED ANESTHESIA FORMS 12:00 AM EDT SCANNED PRE/POST PROCEDURES 02/2010 12:00 AM EDT IP CONSULT TO SOCIAL WORK Routine 2009 10:20 AM EDT IP CONSULT TO NUTRITION Routine 03/25/20 10:18 AM EDT SCANNED LABS 03/25/2010 12:00 AM EDT T4, FREE (THYROXINE) Routine 03/24/2010 12:52 PM EDT TSH REFLEX TO FT4 Routine 03/24/2010 12:52 PM EDT DRUG SCREEN URINE (FINAL) STAT 2009 8:55 PM EDT .DRUG SCREEN URINE (PRELIMINARY) STAT 03/23/2010 8:55 PM EDT DRUG SCREEN RAPID PANEL, URINE (GRT,COV ONLY) STAT 03/23/2010 8:55 PM EDT POCT URINALYSIS DIPSTICK Routine 8:52 PM EDT PARTIAL THROMBOPLASTIN TIME Routine 11/2009 8:02 PM EDT PT / INR Routine 03/23/2010 8:02 PM EDT DIFFERENTIAL STAT 03/23/2010 7:51 PM EDT SALICYLATE LEVEL Routine 03/23/2010 7:51 PM EDT ACETAMINOPHEN LEVEL Routine 03/23/2010 7:51 PM EDT ALCOHOL MEDICAL Routine 03/23/2010 7:51 PM EDT BASIC METABOLIC PANEL STAT 03/23/2010 7:51 PM EDT CBC WITH DIFF STAT 03/23/2010 7:51 PM EDT XR CHEST AP PORTABLE IFTIKHAR 03/23/2010 7:32 PM EDT SCANNED OR REPORT 03/04/2010 12:00 AM EDT SCANNED OR REPORT 03/02/2010 12:00 AM EDT SCANNED OR REPORT 03/02/2010 12:00 AM EDT SCANNED OR REPORT 03/02/2010 12:00 AM EDT SCANNED OR REPORT 02/27/2010 12:00 AM EDT SCANNED OR REPORT 02/04/2010 12:00 AM EDT EK EKG REG Routine 01/01/2010 2:38 PM EDT BASIC METABOLIC PANEL Routine 01/01/2010 1:40 PM EDT DIFFERENTIAL Routine 01/01/2010 1:40 PM EDT CBC WITH DIFF Routine 01/01/2010 1:40 PM EDT GC MM DIG SCR ADIS PANEL W/CAD Routine 12/30/2009 11:25 AM EDT GC MR LOW EXT ANY JNT W/O CONT Routine 10/11/2009 10:00 AM EDT GC XX KNEE Routine 10/02/2009 5:[address] ABD/PELVIS PROCESS MACHINE OPERATOR Routine 04/18/2009 8:20 AM EDT GC XX FLAT AND UPRIGHT ABDOMEN Routine 04/15/2009 5:[address] ABD/PELVIS PROCESS MACHINE OPERATOR Routine 02/06/2009 11:25 AM EDT CC CARDIAC PROCEDURE Routine 12/27/2008 7:[address] HEAD PROCESS MACHINE OPERATOR Routine 10/30/2008 4:40 PM EDT GC MM DIG DIAG ADIS PANEL W/CAD Routine 10/17/2008 8:[address] PHARM STRESS Routine 10/15/2008 12:30 PM EDT EC ECHO COMPLETE PANEL Routine 2008 11:31 AM EDT NM NUCLEAR CARD PROC PROCESS MACHINE OPERATOR Routine 09/17 10:[address] ABD/PELVIS PROCESS MACHINE OPERATOR Routine 08/28/2008 7:00 PM EST GC MM DIG SCR ADIS PANEL W/CAD Routine 10/03/2007 1:00 PM EDT XX KNEE Routine 04/12/2007 1:[address] ABD/PELVIS PROCESS MACHINE OPERATOR Routine 03/23/2007 2:00 PM EDT GC MM MAMMO DIAG BILATERAL Routine 03/23 8:[address] ABD/PELVIS PROCESS MACHINE OPERATOR Routine 09/15/2006 9:15 AM EST FL STOMACH-SMALL BOWEL PROCESS MACHINE OPERATOR Routine 09/08 8:05 AM EST XX FLAT AND UPRIGHT ABDOMEN Routine 07/21 4:10 PM EST MM MAMMO DIAG BILATERAL Routine 03/03/20 8:[address] CHEST PROCESS MACHINE OPERATOR Routine 03/01/2006 12:48 PM EDT XX CHEST PORTABLE Routine 03/01/2006 11:30 AM EDT EK EKG REG Routine 03/01/2006 11:07 AM EDT EK EKG REG Routine 12/06/2005 8:47 AM EDT US LIVER-HEPATIC SONOGRAPHY Routine 10/2005 9:05 AM EDT FL BARIUM SWALLOW Routine 10/13/2005 9:57 AM EST FL SMALL BOWEL Routine 10/10/2005 8:[address] ABD/PELVIS PROCESS MACHINE OPERATOR Routine 08/07/2005 10:00 AM EST XX ANKLE Routine 03/31/2005 10:34 AM EDT MM MAMMO SCREEN W/CAD PANEL. Routine 10:16 AM EDT EK EKG REG Routine 11/20/2004 7:57 PM EDT Results * (ABNORMAL) CBC WITH DIFF (11/30/2024 1:33 PM EDT) Only the most recent of29 resultswithin the time period is included. WBC 12.1(H) 3.7 - 10.3 x10(3)/mcL 11/30/2024 7:46 PM EDT [facility] RBC 4.42 3.90 - 5.20 x10(6)/mcL 11/30/2024 [...] 7:46 PM EDT [facility] [place] Percent 7.9 % 11/30/2024 7:46 PM EDT [facility] Eos Percent 0.1 % 11/30/2024 7:46 PM EDT [facility] Baso Percent 0.2 % 11/30/2024 7:46 PM EDT [facility] Neut # 8.2(H) 1.6 - 6.1 x10(3)/mcL 11/30/2024 7:46 PM EDT [facility] Comment:Neutrophils equals s egs plus bands IMMGRAN# 0.1 0.0 - 0.1 x10(3)/mcL 11/30/2024 7:46 PM EDT [facility] Comment:Automated count of m etamyelocytes, myelocytes and promyelocytes. An absolute IG <0.1 is reported as 0.0. Lymph # 2.9 1.2 - 3.9 x10(3)/mcL 11/30/2024 7:46 PM EDT [facility], [facility] [place] # 1.0(H) 0.3 - 0.9 x10(3)/mcL 11/30/2024 7:46 PM EDT [facility], [facility] Eos# 0.0 0.0 - 0.5 x10(3)/mcL 11/30/2024 7:46 PM EDT [facility], [facility] Baso # 0.0 0.0 - 0.1 x10(3)/mcL 11/30/2024 7:46 PM EDT [facility] [employer], [facility] Blood VENOUS BLOOD / Unknown Venipuncture / Unknown 11/30/2024 1:33 PM EDT 11/30/2024 1:33 PM EDT Ar Vaca MD HEMATOLOGY ORDERABLES Fi nal Result Performing Organization Address [facility]/ZIP Co de Phone Number [facility] [employer] , [place] [address] * URIC ACID (11/30/2024 1:33 PM EDT) Only the most recent of7 resultswithin the time period is included. Uric Acid 2.7 2.4 - 5.7 mg/dL 11/30/2024 8:56 PM EDT [facility] [employer], [facility] Blood VENOUS BLOOD / Unknown Venipuncture / Unknown 11/30/2024 1:33 PM EDT 11/30/2024 1:33 PM EDT Ar Vaca MD CHEMISTRY ORDERABLES Fin al Result Performing Organization Address [facility]/ZIP Co de Phone Number [facility] [address] [facility] [address] , [place] [address] * THYROID STIMULATING HORMONE (11/30/2024 1:33 PM EDT) Only the most recent of23 resultswithin the time period is included. TSH 4.020 0.270 - 4.200 mcIU/mL 11/30/2024 8:56 PM EDT [facility] Blood VENOUS BLOOD / Unknown Venipuncture / Unknown 11/30/2024 1:33 PM EDT 11/30/2024 1:33 PM EDT Narrative hi5 [facility] - 11/30/2024 8:56 PM EDT Ingestion of gerald doses of biotin (>5 mg/day) taken within 8 hours of drawing blood sample can interfere with this immunoassay test. Ar Vaca MD CHEMISTRY ORDERABLES Fin al Result Performing Organization Address [facility] Co de Phone Number [facility] [address] , [place] [address] * (ABNORMAL) HEMOGLOBIN A1C (11/30/2024 1:33 PM EDT) Only the most recent of19 resultswithin the time period is included. Hgb A1C 5.8(H) 4.2 - 5.6 % 11/30/2024 8:08 PM EDT [facility] Est. Avg Glucose 120 mg/dL 11/30/2024 8:08 PM EDT [facility] Blood VENOUS BLOOD / Unknown Venipuncture / Unknown 11/30/2024 1:33 PM EDT 11/30/2024 1:33 PM EDT Narrative [facility] - 11/30/2024 8:08 PM EDT REFERENCE RANGE: Normal: 4.0-5.6% Pre-diabetes: 5.7-6.4% Provisional diagnosis of diabetes: >6.4% Hgb F>10% and anything which shortens red cell survival, such as hemolytic anemia, or unstable hemoglobin variants such as HbSS, HbSC, or HbCC, will lower the HbA1c value associated with a given level of glycemic control. us Ar Vaca MD CHEMISTRY ORDERABLES Fin al Result Performing Organization Address [facility]/ZIP Co de Phone Number [facility] [address] [facility] , [place] [address] * (ABNORMAL) COMPREHENSIVE METABOLIC PANEL (11/30/2024 1:33 PM EDT) Only the most recent of26 resultswithin the time period is included. Sodium 141 136 - 145 mmol/L 11/30/2024 [...] PM EDT [facility] Total Protein 6.7 6.4 - 8.3 gm/dL 11/30/2024 8:56 PM EDT [facility] Bili Total 0.3 0.2 - 1.3 mg/dL 11/30/2024 8:56 PM EDT [facility] ALT 10 <=41 U/L 11/30/2024 8:56 PM EDT [facility] AST 15 <=40 U/L 11/30/2024 8:56 PM EDT [facility] Alk Phos 81 36 - 123 U/L 11/30/2024 8:56 PM EDT [facility] eGFR (CKD-EPIcr 2020) 71 >=60 mL/min/1.7 3 m2 11/30/2024 8:56 PM EDT [facility] Comment:Estimated GFR was ca lculated using the CKD-EPIcr (2020) equation refit without race. The equation is recommended by the National Kid[employer] Foundation - [place] [employer] Neph[employer] Task Force. Blood VENOUS BLOOD / Unknown Venipuncture / Unknown 11/30/2024 1:33 PM EDT 11/30/2024 1:33 PM EDT us Ar Vaca MD CHEMISTRY ORDERABLES Fin al Result [facility] [address] [facility] , [address] [place] [id number] * (ABNORMAL) SEP URINALYSIS POC (11/30/2024 1:05 PM EDT) Only the most recent of3 resultswithin the time period is included. UA Color POC Yellow Color 11/30/2024 1:08 [...] ORDER BUFFY Final Result Performing Organization Address City/[facility]/ZIP Co de Phone Number [facility] [address] [place] [address] * URINE CULTURE (NO STAIN) (11/30/2024 1:03 PM EDT) Only the most recent of7 resultswithin the time period is included. Culture Multiple bacterial species isolated from urine consistent with urogenital commensal organisms. 12/02/2024 7:23 AM EDT [facility] [employer] Urine STRUCTURE OF URINARY TRACT PROPER / Unknown 11/30/2024 1:03 PM EDT 11/30/2024 1:03 PM EDT Ar Vaca MD MICROBIOLOGY - GENERAL O RDERABLES Final Result Performing Organization Address City/[facility]/ZIP Co de Phone Number [facility] [employer] [address] [facility] , [place] [address] * (ABNORMAL) TSH REFLEX (08/15/2024 2:35 PM EST) Only the most recent of9 resultswithin the time period is included. TSH Reflex 5.890(H) 0.270 - 4.200 mcIU/mL 08/15/2024 11:32 PM EST [facility] [employer] Blood VENOUS BLOOD / Unknown Venipuncture / Unknown 08/15/2024 2:35 PM EST 08/15/2024 2:35 PM EST Narrative [facility] [employer] [employer] - 08/15/2024 11:32 PM EST Ingestion of gerald doses of biotin (>5 mg/day) taken within 8 hours of drawing blood sample can interfere with this immunoassay test. Ar Vaca MD CHEMISTRY ORDERABLES Fin al Result Performing Organization Address [facility] de Phone Number [facility] [address] [facility] , [place] [address] * T4, FREE (THYROXINE) (08/15/2024 2:35 PM EST) Only the most recent of21 resultswithin the time period is included. Free T4 1.36 0.80 - 1.80 ng/dL 08/16/2024 12:18 AM EST [facility] Blood VENOUS BLOOD / Unknown Venipuncture / Unknown 08/15/2024 2:35 PM EST 08/15/2024 2:35 PM EST Narrative [facility] - 08/16/2024 12:18 AM EST Ingestion of gerald doses of biotin (>5 mg/day) taken within 8 hours of drawing blood sample can interfere with this immunoassay test. Ar Vaca MD CHEMISTRY ORDERABLES Fin al Result Performing Organization Address [facility] de Phone Number [facility] [address] [facility] , [place] [address] * (ABNORMAL) LIPID PANEL REFLEX (03/10/2024 1:45 PM EDT) Only the most recent of6 resultswithin the time period is included. Cholesterol 168 <200 mg/dL 03/10/2024 7:49 PM EDT [facility] Comment: < 200 Desirable 200 - 239 Borderline High >= 240 High Triglyceride 178(H) <150 mg/dL 03/10/2024 7:49 PM EDT [facility] Comment: < 150 Normal 150 - 199 Borderline High 200 - 499 High >= 500 Very High HDL 40 >=40 mg/dL 03/10/2024 7:49 PM EDT [facility] Comment: > 60 Optimal 40 - 60 Acceptable < 40 Low LDL Calculated 97 <100 mg/dL 03/10/2024 7:49 PM EDT [facility], [facility] Non-HDL-C Calculated 128 <=129 mg/dL 03/10/2024 7:49 PM EDT [facility] [employer] [facility] Comment: <130 Desirable 130-159 Above Desirable 160-189 Borderline High 190-219 High >= 220 Very High Fasting Specimen? No None 024 7:49 PM EDT [facility] Blood VENOUS BLOOD / Unknown Venipuncture / Unknown 03/10/2024 1:45 PM EDT 03/10/2024 1:45 PM EDT Ar Vaca MD CHEMISTRY ORDERABLES Fin al Result Performing Organization Address [facility] Phone Number [facility] [employer] [facility] [address] [facility] , [place] [id number] [facility] [address] [place], [place] [id number] * SEDIMENTATION RATE AUTOMATED (03/10/2024 1:45 PM EDT) Only the most recent of3 resultswithin the time period is included. Pathologist [facility] Sed Rate 11 0 - 30 mm/hr 03/10/2024 8:11 PM EDT [facility] [employer] [facility] Blood VENOUS BLOOD / Unknown Venipuncture / Unknown 03/10/2024 1:45 PM EDT 03/10/2024 1:45 PM EDT Ar Vaca MD HEMATOLOGY ORDERABLES Fi nal Result Performing Organization Address [facility] Phone Number [facility] [address] [facility] , [place] [address] * RHEUMATOID FACTOR QUANTITATIVE (03/10/2024 1:45 PM EDT) Only the most recent of2 resultswithin the time period is included. RF Quant <10 <14 IU/mL 03/10/2024 7:3 6 PM EDT [facility] [employer] [facility] Blood VENOUS BLOOD / Unknown Venipuncture / Unknown 03/10/2024 1:45 PM EDT 03/10/2024 1:45 PM EDT Ar Vaca MD IMMUNOLOGY ORDERABLES Fi nal Result Performing Organization Address [facility] de Phone Number [facility] [address] [facility] , [place] [address] * ANTINUCLEAR ANTIBODY SCREEN (03/10/2024 1:45 PM EDT) Only the most recent of3 resultswithin the time period is included. Pathologist [facility] SHANTI, IgG Negative Negative 03/12/2024 10:26 AM EDT [facility], [facility] Comment:SHANTI samples are scre ened using automated enzyme immunoassay. All samples that screen positive are then tested by the indirect immunofluorescence method. Blood VENOUS BLOOD / Unknown Venipuncture / Unknown 03/10/2024 1:45 PM EDT 03/10/2024 1:45 PM EDT Ar Vaca MD IMMUNOLOGY ORDERABLES Fi nal Result Performing Organization Address [facility] de Phone Number [facility] [address] [facility] , [place] [address] * URINALYSIS (10/08/2023 12:48 PM EDT) Only the most recent of4 resultswithin the time period is included. Pathologist [facility] UA Color Light Yellow 10/08/2023 6:49 PM EDT [facility] UA Appear Clear Clear 10/08/2023 6:49 PM EDT [facility] UA Glucose Negative Negative mg/dL 10/08/2023 6:49 PM EDT [facility] UA Ketones Negative Negative mg/dL 10/08/2023 6:49 PM EDT [facility] UA Blood Negative Negative 10/08/2023 6:49 PM EDT [facility] UA pH 6.5 5.0 - 8.0 pH 10/08/2023 6:49 PM EDT [facility] UA Protein Negative Negative mg/dL 10/08/2023 6:49 PM EDT [facility] UA Urobilinogen Normal <=1 mg/dL 6:49 PM EDT [facility] UA Bili Negative Negative 10/08/2023 6:49 PM EDT [facility] UA Nitrite Negative Negative 10/08/2023 6:49 PM EDT [facility] UA Leuk Est Negative Negative 10/08/2023 6:49 PM EDT [facility] UA Spec Grav 1.009 1.001 - 1.035 no units 10/08/2023 6:49 PM EDT [facility] Comment:Reference range nancy d for random specimens only. Urine URINE SPECIMEN COLLECTION, CLEAN CATCH / Unknown 10/08/2023 12:48 PM EDT 10/08/2023 12:48 PM EDT us Ar Vaca MD URINE ORDERABLES Final R esult [facility], [facility] [address] [facility] , [place] [address] * XR CERVICAL SPINE AP LATERAL ODONTOID AND OBLIQUE (09/07/2023 4:54 PM EST) Only the most recent of2 resultswithin the time period is included. Anatomical Region Laterality Modality C-spine Radiographic Sharee ging 09/07/2023 4:54 PM EST Impressions 09/07/2023 4:58 PM EST Degenerative changes without acute finding. - Note: Radiology results need to be interpreted within a comprehensive clinical context. If you have questions about the radiology report, please contact the office of the ordering clinician. Narrative 09/07/2023 4:58 PM EST C-SPINE SERIES, 09/07/2023 4:54 PM CLINICAL HISTORY: M50.30-Other cervical disc degeneration, unspecified cervical [id number] COMPARISON: None. PROCEDURE COMMENTS: Minimum of 5 views of the cervical spine, including PA, lateral, odontoid, and bilateral oblique positioning. FINDINGS: No fracture or evidence of traumatic malalignment. Soft tissues unremarkable. Large anterior osteophyte C5-C6. Milder discogenic changes C6-C7. Bony foramina appear overall patent. Procedure Note Chan Hill MD - 09/07/2023 C-SPINE SERIES, 09/07/2023 4:54 PM CLINICAL HISTORY: M50.30-Other cervical disc degeneration, unspecifiedcervical [id number] COMPARISON: None. PROCEDURE COMMENTS: Minimum of 5 views of the cervical spine, includingPA, lateral, odontoid, and bilateral oblique positioning. FINDINGS: No fracture or evidence of traumatic malalignment. Softtissues unremarkable. Large anterior osteophyte C5-C6. Milder discogenic changes C6-C7. Bony foramina appear overall patent. IMPRESSION: Degenerative changes without acute finding. - Note: Radiology results need to be interpreted within a comprehensiveclinical context. If you have questions about the radiology report, please contactthe office of the ordering clinician. Ar Vaca MD IMG DIAGNOSTIC IMAGING O RDERABLES Final Result * MAMMOGRAPHY (06/16/2023 12:06 PM EST) Historical Provider Generic HEALTH MAINTENANCE F inal Result [facility] * POCT ISMAEL SARS ANTIGEN (03/31/2023 4:23 PM EDT) Only the most recent of2 resultswithin the time period is included. SARS Antigen Negative Negative SEP OFF[facility] Lot Number SEP OFFICE Expiration Date SEP OFFICE SeriAl # SEP OFFICE Control Line Yes YES/NO SEP OFFICE 03/31/2023 4:23 PM EDT Ar Vaca MD POINT OF CARE TEST ORDER BUFFY Final Result [facility] * POCT ISMAEL INFLUENZA A/B (03/31/2023 3:08 PM EDT) Influenza A Antigen Negative Negative 03/31/2023 4:23 PM EDT [facility] Influenza B Antigen Negative Negative 03/31/2023 4:23 PM EDT [facility] Swab SPECIMEN FROM NASOPHARYNGEAL STRUCTURE / Unknown 03/31/2023 3:08 PM EDT 03/31/2023 4:23 PM EDT Ar Vaca MD POINT OF CARE TEST ORDER BUFFY Final Result Performing Organization Address [facility] Co de Phone Number [facility] [address] [place] [address] * POCT SARS-COV-2 RNA SEP (10/04/2022 12:57 PM EDT) COV19 RNA POCT Negative Negative 10/04/2022 1:07 PM EDT [facility] Swab NASAL / Unknown 10/04/2022 1 2:57 PM EDT 10/04/2022 1:07 PM EDT Narrative [facility] - 10/04/2022 1:07 PM EDT The ID NOW is an isothermal nucleic acid amplification assay used to detect nucleic acid from SARS-CoV-2 viral RNA and is intended for use under [facility] Emergency Use Authorization only. Negative results do not preclude SARS-CoV-2 infection and should not be used as the sole basis for patient management decisions. Negative results must be combined with clinical observations, patient history, and epidemiological information. Recommend confirmation using alternate method if a negative result is inconsistent with clinical signs and symptoms or if necessary for patient management. [employer] NOW Provider Fact Sheet: https://www.fda.gov/media/513744/download [employer] Patient Fact Sheet: https://www.fda.gov/media/711061/download us Gabbie Simms MD POINT OF CARE TEST ORDERAB LES Final Result Performing Organization Address City/[facility]/ZIP Co de Phone Number [facility] [address] [place] [address] * (ABNORMAL) LIPID SCREEN (08/28/2022 10:02 AM EST) Only the most recent of10 resultswithin the time period is included. Cholesterol 187 <200 mg/dL 08/28/2022 4:33 PM EST [facility] [employer] Comment: < 200 Desirable 200 - 239 Borderline High >= 240 High Triglyceride 187(H) <150 mg/dL 08/28/2022 4:33 PM EST [facility] [employer] Comment: < 150 Normal 150 - 199 Borderline High 200 - 499 High >= 500 Very High HDL 40 >=40 mg/dL 08/28/2022 4:33 PM EST [facility] [employer] [facility] Comment: > 60 Optimal 40 - 60 Acceptable < 40 Low LDL Calculated 114(H) <100 mg/dL 08/28/2022 4:33 PM EST [facility] [employer], [facility] Comment: < 100 Optimal 100 - 129 Near or above optimal 130 - 159 Borderline High 160 - 189 High >= 190 Very High Non-HDL-C Calculated 147(H) <=129 mg/dL 08/28/2022 4:33 PM EST [facility] Comment: <130 Desirable 130-159 Above Desirable 160-189 Borderline High 190-219 High >= 220 Very High Fasting Specimen? Yes None 023 4:33 PM EST [facility] Blood VENOUS BLOOD / Unknown Venipuncture / Unknown 08/28/2022 10:02 AM EST 08/28/2022 10:02 AM EST Ar Vaca MD CHEMISTRY ORDERABLES [facility] al Result [facility] [employer], [facility] [address] [facility], [place] [address] [facility] [address] [place] [address] * (ABNORMAL) CORONAVIRUS 2019 (COVID-19) - REF LAB (08/23/2021 2:22 PM EST) Only the most recent of2 resultswithin the time period is included. CORONAVIRUS [id number] DETECTED( A) NOT DETECTED 08/24/2021 5:53 PM EST [facility] Swab NASAL / Unknown 08/23/2021 2 :22 PM EST 08/23/2021 2:22 PM EST Narrative [facility] - 08/24/2021 5:53 PM EST Testing Performed at [facility] [address] [place] [address], [address] Taylor StreetIA#: [id number] Production Line Mechanic: Hilary Moon, Ph.D., [facility]. Detected results are indicative of the presence of SARS-CoV-2 RNA but do not rule out bacterial infection or co-infection with other viruses. Test results should be used with caution and in conjunction with other clinical and laboratory data in making a diagnosis. The SARS-CoV-2 assay is a real-time RT-PCR test intended for the qualitative detection of nucleic acid from the SARS-CoV-2 in respiratory specimens from individuals by Nucleic Acid Amplification Testing (NAAT). Testing is limited to the guidelines of FDA Emergency Use Authorization FDA for performing SARS-CoV-2 testing. Is your testing school related? Jenni Vega PA-C LAB SEND OUT ORDERAB LES Final Result [facility] [address] [place] [address], [address] [place] [address], [facility] [phone] * MRI CERVICAL SPINE WO CONTRAST (07/31/2021 8:42 AM EST) Anatomical Region Laterality Modality Spine, C-spine Magnetic Resonan ce 07/31/2021 8:42 AM EST Impressions 07/31/2021 1:28 PM EST 1. Multilevel cervical spondylosis and facet arthritis as detailed above. At C5-6, disc material touches the cervical cord without cord compression. There is mild right foraminal stenosis at C4-5. No high-grade canal or foraminal narrowing. 2. See the above detailed level by level discussion. - Note: Radiology results need to be interpreted within a comprehensive clinical context. If you have questions about the radiology report, please contact the office of the ordering clinician. Narrative 07/31/2021 1:28 PM EST MR CERVICAL SPINE WITHOUT CONTRAST, 07/31/2021 8:42 AM CLINICAL HISTORY: R59.0-Localized enlarged lymph [id number]. COMPARISON: CT July 11, 2021. PROCEDURE COMMENTS: Multiplanar multiecho MR imaging of the cervical spine per protocol. FINDINGS: There is no fracture deformity. No marrow edema or marrow replacing process. Anterior endplate osteophytes are noted at most levels within the cervical spine. The cervical cord is normal signal intensity and morphology. The cervical cord is normal signal intensity and morphology. The imaged paravertebral soft tissues are normal. Level by level analysis: C2-C3: Mild right-sided facet arthritis. No canal or foraminal narrowing. C3-C4: Moderate right-sided facet arthritis, no canal or foraminal narrowing. C4-C5: Severe right-sided facet arthritis. This contributes to mild foraminal stenosis. No central canal narrowing. C5-C6: Disc osteophyte complex touches the ventral aspect of the cord without cord compression. Mild right-sided facet disease. No significant foraminal narrowing. C6-C7: Disc osteophyte complex to the right, mild bilateral facet disease. There is ventral thecal sac effacement without cord compression or foraminal narrowing. C7-T1: Mild bilateral facet disease, no canal or foraminal narrowing. Comment:No significant additional finding. Procedure Note Corey Luan MD - 07/31/2021 MR CERVICAL SPINE WITHOUT CONTRAST, 07/31/2021 8:42 AM CLINICAL HISTORY: R59.0-Localized enlarged lymph [id number]. COMPARISON: CT July 11, 2021. PROCEDURE COMMENTS: Multiplanar multiecho MR imaging of the cervical spineper protocol. FINDINGS: There is no fracture deformity. No marrow edema or marrow replacingprocess. Anterior endplate osteophytes are noted at most levels within thecervical spine. The cervical cord is normal signal intensity and morphology. The cervical cord is normal signal intensity and morphology. The imaged paravertebral soft tissues are normal. Level by level analysis: C2-C3: Mild right-sided facet arthritis. No canal or foraminalnarrowing. C3-C4: Moderate right-sided facet arthritis, no canal or foraminalnarrowing. C4-C5: Severe right-sided facet arthritis. This contributes to mildforaminal stenosis. No central canal narrowing. C5-C6: Disc osteophyte complex touches the ventral aspect of the cordwithout cord compression. Mild right-sided facet disease. No significantforaminal narrowing. C6-C7: Disc osteophyte complex to the right, mild bilateral facetdisease. There is ventral thecal sac effacement without cord compression orforaminal narrowing. C7-T1: Mild bilateral facet disease, no canal or foraminal narrowing. Comment:No significant additional finding. IMPRESSION: 1. Multilevel cervical spondylosis and facet arthritis as detailed above.At C5-6, disc material touches the cervical cord without cord compression.There is mild right foraminal stenosis at C4-5. No high-grade canal or foraminal narrowing. 2. See the above detailed level by level discussion. - Note: Radiology results need to be interpreted within a comprehensiveclinical context. If you have questions about the radiology report, please contactthe office of the ordering clinician. us Viral Cornejo V, DO IMG MRI ORDERABLES Final Resul t * CT SOFT TISSUE NECK W CONTRAST (07/11/2021 11:07 AM EST) Anatomical Region Laterality Modality Neck Computed Tomogra phy 07/11/2021 11:0 7 AM EST Impressions 07/11/2021 11:40 AM EST No pathologic mass. Prominent ventral peridiscal spurring impinges on the LEFT dorsolateral larynx and causes some laryngeal and tracheal deviation. This may explain palpated abnormalities. - Note: Radiology results need to be interpreted within a comprehensive clinical context. If you have questions about the radiology report, please contact the office of the ordering clinician. Narrative 07/11/2021 11:[address] SOFT TISSUE NECK W CONTRAST 07/11/2021 11:07 AM CLINICAL HISTORY: R59.0-Localized enlarged lymph [id number]. COMPARISON: None. PROCEDURE COMMENTS: Multidetector volumetric CT scan of the neck per protocol. Multiplanar reconstructions. Isovue 370 IV contrast given as recorded in EPIC. Dose 1 : CT DLP Total : 487.6 mGycm DLP Spiral Max : 487.6 mGycm Maximum CTDI Vol : 12.9 mGy FINDINGS: PHARYNGEAL MUCOSA: No evidence of mass or active inflammation. ORAL CAVITY: No evidence of mass or active inflammation. LARYNX: Laryngeal structures symmetric. No mass identified. Epiglottis normal thickness. LYMPH NODES: No suspicious lymph nodes. Normal-sized lymph nodes are present. SALIVARY GLANDS: No evidence of mass or active inflammation. THYROID: No suspicious nodule or mass. VESSELS AND CAROTID SPACE: There is retropharyngeal tortuosity of the RIGHT carotid system causing some bulging of the posterior oropharynx and hypopharynx. BONES: Advanced degenerative changes of the cervical spine are present including multilevel prominent ventral peridiscal spurring with impingement on the LEFT posterolateral larynx of the cricoid level causing some mild tracheal deviation. The pattern is compatible with DISH. OTHER: Visualized lung apices unremarkable. Procedure Note Hilary Emerson MD - 07/11/2021 CT SOFT TISSUE NECK W CONTRAST 07/11/2021 11:07 AM CLINICAL HISTORY: R59.0-Localized enlarged lymph [id number]. COMPARISON: None. PROCEDURE COMMENTS: Multidetector volumetric CT scan of the neck perprotocol. Multiplanar reconstructions. Isovue 370 IV contrast given as recorded inEPIC. Dose 1 : CT DLP Total : 487.6 mGycm DLP Spiral Max : 487.6 mGycm Maximum CTDI Vol : 12.9 mGy FINDINGS: PHARYNGEAL MUCOSA: No evidence of mass or active inflammation. ORAL CAVITY: No evidence of mass or active inflammation. LARYNX: Laryngeal structures symmetric. No mass identified. Epiglottisnormal thickness. LYMPH NODES: No suspicious lymph nodes. Normal-sized lymph nodes arepresent. SALIVARY GLANDS: No evidence of mass or active inflammation. THYROID: No suspicious nodule or mass. VESSELS AND CAROTID SPACE: There is retropharyngeal tortuosity of theRIGHT carotid system causing some bulging of the posterior oropharynx andhypopharynx. BONES: Advanced degenerative changes of the cervical spine are presentincluding multilevel prominent ventral peridiscal spurring with impingement on theLEFT posterolateral larynx of the cricoid level causing some mild trachealdeviation. The pattern is compatible with DISH. OTHER: Visualized lung apices unremarkable. IMPRESSION: No pathologic mass. Prominent ventral peridiscal spurring impinges on the LEFT dorsolateral larynx and causes some laryngeal and tracheal deviation. This may explain palpated abnormalities. - Note: Radiology results need to be interpreted within a comprehensiveclinical context. If you have questions about the radiology report, please contactthe office of the ordering clinician. us Viral Cornejo V, DO IMG CT ORDERABLES Final Result * US HEAD NECK SOFT TISSUE (07/08/2021 11:21 AM EST) Anatomical Region Laterality Modality Head, Neck Ultrasound 07/08/2021 11:2 1 AM EST Impressions 07/08/2021 12:56 PM EST There is bilateral visible adenopathy in both sides of the neck although the sonographic features of the lymph nodes are not clearly pathologic. Ultrasound is not histologically specific. Continued clinical correlation and management recommended. - Note: Radiology results need to be interpreted within a comprehensive clinical context. If you have questions about the radiology report, please contact the office of the ordering clinician. Narrative 07/08/2021 12:56 PM EST US HEAD NECK SOFT TISSUE, 07/08/2021 11:21 AM CLINICAL HISTORY: R59.0-Localized enlarged lymph [id number]. COMPARISON: None. PROCEDURE COMMENTS: Routine sonographic evaluation of the region of interest with provider service representative images sent to PACS along with bulk loader notes. FINDINGS: Patient complains of pain and swelling in the RIGHT neck with questioned palpable adenopathy. Scanning in the RIGHT lateral neck in the area of pain and swelling shows a 2.6 x 1.3 x 0.6 cm lymph node with a cortical thickness between 4 and 5 mm but with a fatty hilum still present. There are other visible lymph nodes on the RIGHT measuring approximately 1.5 cm in length but with short axis measurement only 0.5 cm Comparison scanning of the LEFT neck shows a 2 x 1.4 x 0.7 cm lymph node that appears similar to the RIGHT side and other 1.5 cm in length but short axis thickness 0.5 cm lymph nodes also present on the LEFT. Procedure Note Hilary Hathaway MD - 07/08/2021 US HEAD NECK SOFT TISSUE, 07/08/2021 11:21 AM CLINICAL HISTORY: R59.0-Localized enlarged lymph relop-YDT-33-CM. COMPARISON: None. PROCEDURE COMMENTS: Routine sonographic evaluation of the region ofinterest with provider service representative images sent to PACS along with bulk loader notes. FINDINGS: Patient complains of pain and swelling in the RIGHT neck with questioned palpable adenopathy. Scanning in the RIGHT lateral neck in the area of pain and swelling showsa 2.6 x 1.3 x 0.6 cm lymph node with a cortical thickness between 4 and 5 mm butwith a fatty hilum still present. There are other visible lymph nodes on theRIGHT measuring approximately 1.5 cm in length but with short axis measurementonly 0.5 cm Comparison scanning of the LEFT neck shows a 2 x 1.4 x 0.7 cm lymph nodethat appears similar to the RIGHT side and other 1.5 cm in length but shortaxis thickness 0.5 cm lymph nodes also present on the LEFT. IMPRESSION: There is bilateral visible adenopathy in both sides of the neck although the sonographic features of the lymph nodes are not clearlypathologic. Ultrasound is not histologically specific. Continued clinical correlationand management recommended. - Note: Radiology results need to be interpreted within a comprehensiveclinical context. If you have questions about the radiology report, please contactthe office of the ordering clinician. us Viral Cornejo V, DO IMG US ORDERABLES Final Result * XR HAND BILATERAL PA LATERAL AND OBLIQUE (11/21/2020 12:33 PM EDT) Anatomical Region Laterality Modality Hand Radiographic Sharee ging 11/21/2020 12:3 3 PM EDT Impressions 11/21/2020 3:04 PM EDT Osteoarthrosis bilaterally which is severe at the DIP joint second digit and first CMC of the left hand. - Note: Radiology results need to be interpreted within a comprehensive clinical context. If you have questions about the radiology report, please contact the office of the ordering clinician. Narrative 11/21/2020 3:04 PM EDT XR HAND BILATERAL PA LATERAL AND OBLIQUE, 11/21/2020 12:33 PM CLINICAL HISTORY: M21.949-Unspecified acquired deformity of hand, unspecified hqic-VEW-28-CM M19.041-Primary osteoarthritis, right xzaz-TZZ-34-CM M19.042-Primary osteoarthritis, left lkdr-QXT-02-CM COMPARISON: None. PROCEDURE COMMENTS: Bilateral imaging per the ordered protocol. FINDINGS: Left: Severe narrowing of the DIP joints especially involving the second DIP joint but there is subchondral cystic change and mild seagull deformity. Moderate to severe narrowing at the first CMC joint with prominent marginal osteophytes. No radiopaque foreign body. Right: No acute fracture. Mild to moderate narrowing of IP joints with small marginal osteophytes. Mild to moderate first CMC joint changes. No radiopaque foreign body. No erosive changes. Procedure Note So Ramirez MD - 11/21/2020 XR HAND BILATERAL PA LATERAL AND OBLIQUE, 11/21/2020 12:33 PM CLINICAL HISTORY: M21.949-Unspecified acquired deformity of hand,unspecified qbsr-DAA-20-CM M19.041-Primary osteoarthritis, right ccxd-DMD-32-CM M19.042-Primary osteoarthritis, left alub-BKB-03-CM COMPARISON: None. PROCEDURE COMMENTS: Bilateral imaging per the ordered protocol. FINDINGS: Left: Severe narrowing of the DIP joints especially involving the secondDIP joint but there is subchondral cystic change and mild seagull deformity. Moderate to severe narrowing at the first CMC joint with prominentmarginal osteophytes. No radiopaque foreign body. Right: No acute fracture. Mild to moderate narrowing of IP joints withsmall marginal osteophytes. Mild to moderate first CMC joint changes. Noradiopaque foreign body. No erosive changes. IMPRESSION: Osteoarthrosis bilaterally which is severe at the DIP joint second digit and first CMC of the left hand. - Note: Radiology results need to be interpreted within a comprehensiveclinical context. If you have questions about the radiology report, please contactthe office of the ordering clinician. us Lacho Ennis MD IMG DIAGNOSTIC IMAGING ORDER BUFFY Final Result * CYCLIC CITRULLINATED PEPTIDE ANTIBODY, IGG (10/28/2020 1:43 PM EDT) CCP Ab, IgG <0.5 U/mL 10/28/2020 8:46 PM EDT [employer] Comment: Negative: < 5.0 U/mL Positive: > or = 5.0 U/mL Blood VENOUS BLOOD / Unknown Venipuncture / Unknown 10/28/2020 1:43 PM EDT 10/28/2020 1:43 PM EDT us Lacho Ennis MD IMMUNOLOGY ORDERABLES Final Result [employer] [address], [place] [address] * VITAMIN D 25 HYDROXY (10/28/2020 1:43 PM EDT) Only the most recent of3 resultswithin the time period is included. Pathologist [facility] [place] Vit D 25 OH 49.1 30.0 - 150.0 ng/mL 10/28/2020 8:15 PM EDT [facility] [employer] Comment: Preferred: >= 30 ng/mL Insufficient: 21-29 ng/mL Deficient <= 20 ng/mL Possible Toxicity: >150 ng/mL Samples should not be taken from patients receiving therapy with high biotin doses (i.e. > 5 mg/day) until at least 8 hours following the last biotin administration. Blood Venipuncture / Unknown 10/28/2020 1:43 PM EDT 10/28/2020 1:43 PM EDT us Lacho Ennis MD CHEMISTRY ORDERABLES Final R [facility] Performing Organization Address [facility] Co de Phone Number [facility] [employer] [address] , [place] [address] * (ABNORMAL) C-REACTIVE PROTEIN (10/28/2020 1:43 PM EDT) [facility] CRP 8.12(H) <=5.00 mg/L 10/28/2020 7:58 PM EDT hi5 [facility] Blood VENOUS BLOOD / Unknown Venipuncture / Unknown 10/28/2020 1:43 PM EDT 10/28/2020 1:43 PM EDT us Lacho Ennis MD CHEMISTRY ORDERABLES Final R esult Performing Organization Address [facility] Co de Phone Number [facility] [employer] [address] , [place] [address] * (ABNORMAL) RENAL FUNCTION PANEL (10/28/2020 1:43 PM EDT) [facility] Sodium 140 136 - 145 mmol/L 10/28/2020 8:00 PM EDT [employer] [employer] Potassium 4.5 3.5 - 5.0 mmol/L 10/28/2020 8:00 PM EDT [facility] [employer] Chloride 102 98 - 107 mmol/L 10/28/2020 8:00 PM EDT [facility] Total CO2 28 22 - 29 mmol/L 10/28/2020 8:00 PM EDT [facility], [facility] Anion Gap 10 7 - 16 mmol/L 10/28/2020 8:00 PM EDT [facility], [facility] Calcium 9.7 8.8 - 10.4 mg/dL 10/28/2020 8:00 PM EDT [facility], [facility] Glucose Lvl 94 82 - 100 mg/dL 10/28/2020 8:00 PM EDT [facility], [facility] BUN 15 8 - 23 mg/dL 10/28/2020 8:00 PM EDT [facility], [facility] Creatinine 1.03 0.51 - 1.30 mg/dL 10/28/2020 8:00 PM EDT [facility], [facility] Albumin 4.1 3.2 - 4.6 gm/dL 10/28/2020 8:00 PM EDT [facility], [facility] Phosphorus 3.4 2.5 - 4.5 mg/dL 10/28/2020 8:00 PM EDT [facility], [facility] GFR Afr Am 66 >=60 mL/min/1.7 3 m2 10/28/2020 8:00 PM EDT [facility] GFR Non Afr Am 58(L) >=60 mL/min/1.7 3 m2 10/28/2020 8:00 PM EDT [facility] Comment: This estimated GFR was calculated using CKD-EPI equation which is modified based on ethnicity for Non Americans and Americans. Both results are reported since it is not always possible to determine the patient's ethnicity. This equation should only be used for individuals 18 and older. It has not been validated for use with the elderly (>70 years), women, or in some racial or ethnic subgroups, such as Hispanics. The equation will be less accurate in people with differences in nutritional status or muscle mass. Blood Venipuncture / Unknown 10/28/2020 1:43 PM EDT 10/28/2020 1:43 PM EDT us Kory Rodriguez MD CHEMISTRY ORDERABLES Final Res ult [facility] [address] [place] [address] , [place] [address] [address] * CT ABD PEL ED FAST W CONTRAST (10/01/2020 4:00 AM EDT) Anatomical Region Laterality Modality Abdomen, Pelvis Computed Tomogra phy 10/01/2020 4:00 AM EDT Impressions 10/01/2020 4:20 AM EDT No acute abnormality of the abdomen or pelvis. - Narrative 10/01/2020 4:[address] ABDOMEN AND PELVIS WITH CONTRAST (FAST), 10/01/2020 4:00 AM CLINICAL HISTORY: -lower abd pain. Prior hysterectomy, appendectomy: Cholecystectomy. COMPARISON: CT abdomen pelvis from October 15, 2017. PROCEDURE COMMENTS: Multi-detector CT scanning of the abdomen and pelvis with multiplanar reformatting per expedited protocol. 100 mL Isovue 370 IV. Automated exposure control for dose reduction was used. CTDIvol: 34.4 mGy. DLP: 1611 mGy-cm. FINDINGS: LOWER THORAX: Lung bases unremarkable. ABDOMEN AND PELVIS: Liver, spleen, adrenal glands unremarkable. Gallbladder resected. No pancreatic mass or inflammatory process there is pancreatic atrophy. Renal cortical cysts in surface lobulations are present. No hydronephrosis or hydroureter. No bowel obstruction. Appendix resected. Hysterectomy. No abnormal fluid or mass in the pelvis. Degenerative changes of the spine are present. No acute spine fracture. Multilevel thoracic spine fusion from syndesmophytes is present, compatible with DISH. Procedure Note Hilary Emerson MD - 10/01/2020 CT ABDOMEN AND PELVIS WITH CONTRAST (FAST), 10/01/2020 4:00 AM CLINICAL HISTORY: -lower abd pain. Prior hysterectomy, appendectomy: Cholecystectomy. COMPARISON: CT abdomen pelvis from October 15, 2017. PROCEDURE COMMENTS: Multi-detector CT scanning of the abdomen and pelviswith multiplanar reformatting per expedited protocol. 100 mL Isovue 370 IV. Automated exposure control for dose reduction was used. CTDIvol: 34.4 mGy.DLP: 1611 mGy-cm. FINDINGS: LOWER THORAX: Lung bases unremarkable. ABDOMEN AND PELVIS: Liver, spleen, adrenal glands unremarkable.Gallbladder resected. No pancreatic mass or inflammatory process there is pancreatic atrophy. Renal cortical cysts in surface lobulations are present. No hydronephrosis or hydroureter. No bowel obstruction. Appendix resected. Hysterectomy. No abnormal fluid or mass in the pelvis. Degenerative changes of the spine are present. No acute spine fracture. Multilevel thoracic spine fusion from syndesmophytes is present,compatible with DISH. IMPRESSION: No acute abnormality of the abdomen or pelvis. - Henry Valiente MD IMG CT ORDERABLES Final Result * (ABNORMAL) CBC (10/01/2020 2:27 AM EDT) Only the most recent of6 resultswithin the time period is included. WBC 9.1 3.7 - 10.3 x10(3)/mcL 10/01/2020 2:34 AM EDT [email or web address] [facility] RBC 4.37 3.90 - 5.20 x10(6)/mcL 10/01/2020 2:34 AM EDT [email or web address] [facility] Hgb 11.9 11.2 - 15.7 g/dL 10/01/2020 2:34 AM EDT [email or web address] [facility] Hct 37.3 34.0 - 45.0 % 10/01/2020 2:34 AM EDT [email or web address] [facility] MCV 85.4 80.0 - 100.0 fL 10/01/2020 2:34 AM EDT [facility] MCH 27.2 26.0 - 34.0 pg 10/01/2020 2:34 AM ED [email or web address] MCHC 31.9 30.7 - 35.5 g/dL 10/01/2020 2:34 AM ED [email or web address] [facility] RDW 15.3(H) <=14.9 % 10/01/2020 2:34 AM ED [email or web address] [facility] Platelet 260 155 - 369 x10(3)/mcL 10/01/2020 2:34 AM ED [email or web address] [facility] MPV 11.3 8.8 - 12.5 fL 10/01/2020 2:34 AM [facility] [email or web address] [facility] Blood VENOUS BLOOD / Unknown Venipuncture / Unknown 10/01/2020 2:27 AM EDT 10/01/2020 2:30 AM EDT us Henry Valiente MD HEMATOLOGY ORDERABLES F inal Result [facility] [address] [place] [address] * (ABNORMAL) BASIC METABOLIC PANEL (10/01/2020 2:27 AM EDT) Only the most recent of21 resultswithin the time period is included. Sodium 137 136 - 145 mmol/L 10/01/2020 2:[address] [facility] Potassium 4.3 3.5 - 5.0 mmol/L 10/01/2020 2:[address] [facility] Chloride 102 98 - 107 mmol/L 10/01/2020 2:[address] [facility] Total CO2 27 22 - 29 mmol/L 10/01/2020 2:[address] [facility] Anion Gap 8 7 - 16 mmol/L 10/01/2020 2:[address] [facility] Calcium 10.0 8.8 - 10.4 mg/dL 10/01/2020 2:[address] [facility] Glucose Lvl 122(H) 82 - 100 mg/dL 10/01/2020 2:[address] [facility] BUN 13 8 - 23 mg/dL 10/01/2020 2:[address] [facility] Creatinine 0.86 0.51 - 1.30 mg/dL 10/01/2020 2:[address] [facility] GFR Afr Am 83 >=60 mL/min/1.7 3 m2 10/01/2020 2:[address] [facility] GFR Non Afr Am 72 >=60 mL/min/1.7 3 m2 10/01/2020 2:[address] [facility] Comment: This estimated GFR was calculated using CKD-EPI equation which is modified based on ethnicity for Non Americans and Americans. Both results are reported since it is not always possible to determine the patient's ethnicity. This equation should only be used for individuals 18 and older. It has not been validated for use with the elderly (>70 years), women, or in some racial or ethnic subgroups, such as Hispanics. The equation will be less accurate in people with differences in nutritional status or muscle mass. Blood VENOUS BLOOD / Unknown Venipuncture / Unknown 10/01/2020 2:27 AM EDT 10/01/2020 2:38 AM EDT Henry Valiente MD CHEMISTRY ORDERABLES Fi nal Result Performing Organization Address City/[facility]/ZIP Co de Phone Number [facility] [address] [place] [address] * EXTRA ARAGON URINE CX (10/01/2020 1:58 AM EDT) Only the most recent of2 resultswithin the time period is included. Urine URINE SPECIMEN COLLECTION, CLEAN CATCH / Unknown 10/01/2020 1:58 AM EDT 10/01/2020 2:01 AM EDT Henry Valiente MD MICROBIOLOGY - GENERAL ORDERABLES Final Result Performing Organization Address [facility] de Phone Number [facility] [address] [place] [address] * POCT URINALYSIS DIPSTICK (09/18/2020 11:15 AM EST) Only the most recent of7 resultswithin the time period is included. Color, UA yellow CLEAR,YELL OW,ORANGE, RUST [facility] OFFICE Clarity, UA clear CLEAR,CLOU DY [facility] OFFICE Glucose, UA negative G/DL% C OFFICE Bilirubin, UA negative POS/NEG C OFFICE Ketones, UA negative POS/NEG C permit coordinator Grav, UA 1.015 1.001 - 1.035 G/DL [facility] OFF[facility] Blood, UA negative POS/NEG C OFFICE pH, UA 6.0 5.0 - 8 [facility] OFF[facility] Protein, UA negative POS/NEG C OFFICE Urobilinogen, UA negative 0.2 - 1.0 MG/DL [facility] OFF[facility] Nitrite, UA negative POS/NEG [facility] OFF[facility] Leukocytes, UA negative POS/NEG [facility] OFFICE UA Appear POC [facility] OFFICE Lot Number [facility] OFFICE Expiration Date [facility] OFFICE SeriAl # [facility] OFF[facility] Urine 09/18/2020 11:1 5 AM EST Kory Rodriguez MD POINT OF CARE TEST ORDERABLES Final Result [facility] OFFICE * CT CHEST WO CONTRAST (09/13/2020 3:15 PM EST) Anatomical Region Laterality Modality Chest Computed Tomogra phy 09/13/2020 3:15 PM EST Impressions 09/13/2020 4:33 PM EST Osteoarthritis right sternoclavicular joint. - Narrative 09/13/2020 4:[address] CHEST WITHOUT CONTRAST, 09/13/2020 3:15 PM CLINICAL HISTORY: R07.89-Other chest bres-BQF-54-CM. Sternal and clavicular pain COMPARISON: Chest radiograph 08/26/2020 PROCEDURE COMMENTS: Multi-detector CT of the chest with multiplanar reconstructions per protocol. No contrast given. Automated exposure control for dose reduction was used. CTDIvol: 13.5 mGy. DLP: 503 mGy-cm. FINDINGS: Moderately severe degenerative changes present at the right sternoclavicular joint. There is joint space narrowing, subchondral sclerosis and cyst formation on both sides of the joint. No fracture or destructive lesion. The manubrium and sternum are intact. Bridging osteophytes in the thoracic spine are present. Aside from scattered micronodules, the lungs are clear. No endobronchial lesion. There are calcified mediastinal lymph nodes from healed granulomatous disease. Minimal calcification is associated with the aortic valve. Procedure Note Zbigniew Elena MD - 09/13/2020 CT CHEST WITHOUT CONTRAST, 09/13/2020 3:15 PM CLINICAL HISTORY: R07.89-Other chest mdwv-QGN-70-CM. Sternal andclavicular pain COMPARISON: Chest radiograph 08/26/2020 PROCEDURE COMMENTS: Multi-detector CT of the chest with multiplanar reconstructions per protocol. No contrast given. Automated exposurecontrol for dose reduction was used. CTDIvol: 13.5 mGy. DLP: 503 mGy-cm. FINDINGS: Moderately severe degenerative changes present at the right sternoclavicular joint. There is joint space narrowing, subchondralsclerosis and cyst formation on both sides of the joint. No fracture ordestructive lesion. The manubrium and sternum are intact. Bridging osteophytes inthe thoracic spine are present. Aside from scattered micronodules, the lungs are clear. No endobronchiallesion. There are calcified mediastinal lymph nodes from healed granulomatousdisease. Minimal calcification is associated with the aortic valve. IMPRESSION: Osteoarthritis right sternoclavicular joint. - us Stevie Piña MD IMG CT ORDERABLES Final Result * XR CLAVICLE RIGHT (08/26/2020 10:16 AM EST) Anatomical Region Laterality Modality Shoulder Radiographic Sharee ging 08/26/2020 10:1 6 AM EST Impressions 08/26/2020 1:07 PM EST No acute fracture deformity. Moderate degenerative change, AC joint. - Narrative 08/26/2020 1:07 PM EST XR CLAVICLE RIGHT, 08/26/2020 10:16 AM CLINICAL HISTORY: M89.1U5-Dkqge specified disorders of bone, ylwuzrsl-OPM-30-CM. Recurrent pain/swelling. No history of acute trauma. COMPARISON: No comparison films. PROCEDURE COMMENTS: Routine 2 views per the ordered protocol. FINDINGS: No acute displaced/healing fracture deformity. Moderate degenerative changes of the AC joint. Minimal degenerative images of the glenohumeral joint suspected. If the patient has persistent clinical pain or instability, consider follow-up MR imaging. 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 Recurrent pain/swelling. No history of acute trauma. COMPARISON: No comparison films. PROCEDURE COMMENTS: Routine 2 views per the ordered protocol. FINDINGS: No acute displaced/healing fracture deformity. Moderate degenerativechanges of the AC joint. Minimal degenerative images of the glenohumeral jointsuspected. If the patient has persistent clinical pain or instability, considerfollow-up MR imaging. IMPRESSION: No acute fracture deformity. Moderate degenerative change, AC joint. - us Viral Cornejo V, DO IMG DIAGNOSTIC IMAGING ORDERAB LES Final Result * XR CHEST PA AND LATERAL (08/26/2020 10:16 AM EST) Only the most recent of2 resultswithin the time period is included. Anatomical Region Laterality Modality Chest Radiographic Sharee ging 08/26/2020 10:1 6 AM EST Impressions 08/26/2020 10:55 AM EST No acute disease. Narrative 08/26/2020 10:55 AM EST PA AND LATERAL CHEST X-RAY, 08/26/2020 10:16 AM CLINICAL HISTORY: J01.80-Other acute ytfsqsdji-RJX-54-CM J20.9-Acute bronchitis, kcnyykchldk-GRQ-42-CM U07.3-WDYCE-46-ICD-10-CM COMPARISON: 04/01/2016. The lungs are clear. Heart size is normal. Procedure Note Chana Bright MD - 08/26/2020 PA AND LATERAL CHEST X-RAY, 08/26/2020 10:16 AM CLINICAL HISTORY: J01.80-Other acute lwgcpiosm-ZMO-34-CM J20.9-Acute bronchitis, qxkglbhyfwv-LXQ-55-CM U07.6-QTEPG-96-ICD-10-CM COMPARISON: 04/01/2016. The lungs are clear. Heart size is normal. IMPRESSION: No acute disease. us Viral Cornejo V, DO IMG DIAGNOSTIC IMAGING ORDERAB LES Final Result * US RENAL AND BLADDER (07/24/2020 2:44 PM EST) Anatomical Region Laterality Modality Abdomen, Pelvis Ultrasound 07/24/2020 2:44 PM EST Impressions 07/24/2020 4:02 PM EST No evidence of active obstructive uropathy or other acute finding. - Narrative 07/24/2020 4:02 PM EST US KIDNEYS AND BLADDER, 07/24/2020 2:44 PM CLINICAL HISTORY: N28.9-Disorder of kidney and ureter, onfbbptjhua-YGE-98-CM. COMPARISON: None. PROCEDURE COMMENTS: Routine sonographic evaluation of the kidneys and bladder with provider service representative images and bulk loader notes sent to PACS for radiologist review. FINDINGS: RIGHT: 10.0 x 6.1 x 5.3 cm. No hydronephrosis, solid-appearing mass, or shadowing stone. LEFT: 10.7 x 5.2 x 4.1 cm. No hydronephrosis, solid-appearing mass, or shadowing stone. PELVIS: The bladder is sonographically normal. Bilateral ureteral jets seen. Procedure Note Sunday Cadena MD - 07/24/2020 US KIDNEYS AND BLADDER, 07/24/2020 2:44 PM CLINICAL HISTORY: N28.9-Disorder of kidney and ureter,jwxnljzfhfk-ZIQ-36-CM. COMPARISON: None. PROCEDURE COMMENTS: Routine sonographic evaluation of the kidneys andbladder with provider service representative images and bulk loader notes sent to PACS forradiologist review. FINDINGS: RIGHT: 10.0 x 6.1 x 5.3 cm. No hydronephrosis, solid-appearing mass, or shadowing stone. LEFT: 10.7 x 5.2 x 4.1 cm. No hydronephrosis, solid-appearing mass, or shadowing stone. PELVIS: The bladder is sonographically normal. Bilateral ureteral jetsseen. IMPRESSION: No evidence of active obstructive uropathy or other acute finding. - us Viral Cornejo V, DO IMG US ORDERABLES Final Result * XR FOOT BILATERAL AP LATERAL AND OBLIQUE STANDING (02/01/2020 5:22 PM EDT) Anatomical Region Laterality Modality Foot Radiographic Sharee ging 02/01/2020 5:22 PM EDT Impressions 02/01/2020 6:40 PM EDT 1. Bilateral degenerative changes of the right and left foot and toes. 2. Left Achilles tendinopathy and enthesopathy with bilateral heel spurs noted. Narrative 02/01/2020 6:40 PM EDT XR FOOT BILATERAL AP LATERAL AND OBLIQUE STANDING, 02/01/2020 5:22 PM CLINICAL HISTORY: M19.071-Primary osteoarthritis, right ankle and kktw-BID-11-CM M19.072-Primary osteoarthritis, left ankle and cpkq-TCX-20-CM COMPARISON: None. PROCEDURE COMMENTS: 3 views each of the right and left foot and toes obtained. FINDINGS: There is no periarticular osteopenia. There are no erosions. No abnormal calcifications. Bilateral osteoarthritis changes are noted. The midfoot is affected symmetrically. Both hallux at the MPJ show degenerative change. There are bilateral heel spurs of the plantar fascia. There is left Achilles enthesopathy. No acute fracture or dislocation. Procedure Note Ascencion Collins MD - 02/01/2020 XR FOOT BILATERAL AP LATERAL AND OBLIQUE STANDING, 02/01/2020 5:22 PM CLINICAL HISTORY: M19.071-Primary osteoarthritis, right ankle and ozss-IQA-01-CM M19.072-Primary osteoarthritis, left ankle and pflc-KAJ-82-CM COMPARISON: None. PROCEDURE COMMENTS: 3 views each of the right and left foot and toesobtained. FINDINGS: There is no periarticular osteopenia. There are no erosions. No abnormal calcifications. Bilateral osteoarthritis changes are noted. The midfoot is affected symmetrically. Both hallux at the MPJ show degenerative change. There are bilateral heel spurs of the plantar fascia. There is leftAchilles enthesopathy. No acute fracture or dislocation. IMPRESSION: 1. Bilateral degenerative changes of the right and left foot and toes. 2. Left Achilles tendinopathy and enthesopathy with bilateral heel spursnoted. Iftikhar Lang DPM IMG DIAGNOSTIC IMAGING ORD ERABLES Final Result * XR ANKLE RIGHT AP LATERAL AND OBLIQUE (02/01/2020 5:22 PM EDT) Only the most recent of2 resultswithin the time period is included. Anatomical Region Laterality Modality Ankle Radiographic Sharee ging 02/01/2020 5:22 PM EDT Impressions 02/01/2020 6:12 PM EDT No acute osseous abnormality of the ankle. - Narrative 02/01/2020 6:12 PM EDT XR ANKLE RIGHT AP LATERAL AND OBLIQUE, 02/01/2020 5:22 PM CLINICAL HISTORY: M77.51-Other enthesopathy of right foot and fykuo-ZPA-81-CM COMPARISON: 10/15/2013 PROCEDURE COMMENTS: Routine views per the ordered protocol. FINDINGS: Mild degenerative changes around ankle joint. Plantar spurring. Minimal midfoot degenerative change. No acute fracture or dislocation Procedure Note Chan Hill MD - 02/01/2020 XR ANKLE RIGHT AP LATERAL AND OBLIQUE, 02/01/2020 5:22 PM CLINICAL HISTORY: M77.51-Other enthesopathy of right foot [id number]-XVY-23-CM COMPARISON: 10/15/2013 PROCEDURE COMMENTS: Routine views per the ordered protocol. FINDINGS: Mild degenerative changes around ankle joint. Plantarspurring. Minimal midfoot degenerative change. No acute fracture or dislocation IMPRESSION: No acute osseous abnormality of the ankle. - us Iftikhar Lang DPM IMG DIAGNOSTIC IMAGING ORD ERABLES Final Result * HEPATIC FUNCTION PANEL (08/02/2019 3:51 PM EST) Only the most recent of7 resultswithin the time period is included. Total Protein 7.0 6.4 - 8.3 gm/dL 08/02/2019 8:09 PM EST [facility] Albumin 3.8 3.2 - 4.6 gm/dL 08/02/2019 8:09 PM EST [facility] Bili Direct <0.2 0.0 - 0.3 mg/dL 08/02/2019 8:09 PM EST [facility] Bili Total 0.2 0.1 - 1.3 mg/dL 08/02/2019 8:09 PM EST [facility] AST 15 <=40 IU/L 08/02/2019 8:09 PM EST [facility] ALT 12 <=41 IU/L 08/02/2019 8:09 PM EST [facility] Alk Phos 86 36 - 123 IU/L 08/02/2019 8:09 PM EST [facility] Blood VENOUS BLOOD / Unknown Venipuncture / Unknown 08/02/2019 3:51 PM EST 08/02/2019 3:51 PM EST us Viral Cornejo V, DO CHEMISTRY ORDERABLES Final Res ult [facility] [address] [facility] , [place] [address] * MRI LUMBAR SPINE WO CONTRAST (04/17/2019 6:15 PM EDT) Only the most recent of5 resultswithin the time period is included. Anatomical Region Laterality Modality Spine, L-spine Magnetic Resonan ce 04/17/2019 6:15 PM EDT Impressions 04/17/2019 7:21 PM EDT Multilevel degenerative changes lumbar spine as described. No acute bony abnormality. - Narrative 04/17/2019 7:21 PM EDT MRI LUMBAR SPINE WITHOUT CONTRAST, 04/17/2019 6:15 PM CLINICAL HISTORY: M54.5-Low back lcim-OOY-27-CM M51.36-Other intervertebral disc degeneration, lumbar whoeyj-YAV-37-CM COMPARISON: None. PROCEDURE COMMENTS: Multiplanar multiecho MR imaging of the lumbar spine without contrast. FINDINGS: Normal conus medullaris positioning and signal. No concerning marrow signal replacement. Multilevel degenerative changes are present with varying degrees of disc desiccation, flattening, disc bulge/protrusion, and facet degeneration. No aggressive imaging features. T10-T11, T11-T12: Mild disc degeneration with ventral spurring. No neural impingement. T12-L1: Shallow LEFT posterior paracentral and posterolateral disc protrusion. Patent central canal and foramina. L1-L2: Shallow posterior paracentral disc protrusion without any neural impingement. Patent central canal and foramina. L2-L3: Shallow dorsal and dorsolateral disc bulge/protrusion. Moderate bilateral facet degeneration. Mild noncompressive bilateral lateral recess and foraminal narrowing. Central canal patent. L3-L4: Disc degeneration includes posterior central and bilateral posterolateral discosteophyte protrusion with indentation of ventral thecal sac. There is moderate to advanced facet degeneration as well. Central canal is patent. Moderate to severe bilateral lateral recess stenosis. Mild noncompressive bilateral foraminal narrowing. L4-L5: Advanced disc flattening. There is dorsal and dorsolateral discosteophyte protrusion. Moderate facet degeneration is present. Central canal, and lateral recesses are patent. The RIGHT neural foramen is moderately stenotic with neural abutment and displacement. L5-S1: Disc flattening with RIGHT posterolateral discosteophyte protrusion and shallow dorsal and LEFT dorsolateral disc bulging. Advanced RIGHT greater than LEFT facet degeneration. Patent central canal. LEFT lateral recess is mildly narrowed. There is severe RIGHT lateral recess stenosis. The RIGHT foramen is moderately stenotic. LEFT foramen is mildly narrowed. Procedure Note Hilary Emerson MD - 04/17/2019 MRI LUMBAR SPINE WITHOUT CONTRAST, 04/17/2019 6:15 PM CLINICAL HISTORY: M54.5-Low back utyh-LFI-32-CM M51.36-Other intervertebral disc degeneration, lumbar mggyfk-GZE-86-CM COMPARISON: None. PROCEDURE COMMENTS: Multiplanar multiecho MR imaging of the lumbar spinewithout contrast. FINDINGS: Normal conus medullaris positioning and signal. No concerning marrowsignal replacement. Multilevel degenerative changes are present with varying degrees of disc desiccation, flattening, disc bulge/protrusion, and facet degeneration.No aggressive imaging features. T10-T11, T11-T12: Mild disc degeneration with ventral spurring. Noneural impingement. T12-L1: Shallow LEFT posterior paracentral and posterolateral discprotrusion. Patent central canal and foramina. L1-L2: Shallow posterior paracentral disc protrusion without any neural impingement. Patent central canal and foramina. L2-L3: Shallow dorsal and dorsolateral disc bulge/protrusion. Moderatebilateral facet degeneration. Mild noncompressive bilateral lateral recess andforaminal narrowing. Central canal patent. L3-L4: Disc degeneration includes posterior central and bilateralposterolateral discosteophyte protrusion with indentation of ventral thecal sac. Thereis moderate to advanced facet degeneration as well. Central canal ispatent. Moderate to severe bilateral lateral recess stenosis. Mildnoncompressive bilateral foraminal narrowing. L4-L5: Advanced disc flattening. There is dorsal and dorsolateraldiscosteophyte protrusion. Moderate facet degeneration is present. Central canal, andlateral recesses are patent. The RIGHT neural foramen is moderately stenotic withneural abutment and displacement. L5-S1: Disc flattening with RIGHT posterolateral discosteophyte protrusionand shallow dorsal and LEFT dorsolateral disc bulging. Advanced RIGHT greaterthan LEFT facet degeneration. Patent central canal. LEFT lateral recess ismildly narrowed. There is severe RIGHT lateral recess stenosis. The RIGHT foramenis moderately stenotic. LEFT foramen is mildly narrowed. IMPRESSION: Multilevel degenerative changes lumbar spine as described. No acute bony abnormality. - us Efrem Higginbotham MD IMG MRI ORDERABLES Final Res ult * CREATINE KINASE (09/22/2018 2:12 PM EST) CK 83 26 - 192 IU/L 09/22/2018 7:19 PM EST [facility] [employer] [facility] Blood VENOUS BLOOD / Unknown Venipuncture / Unknown 09/22/2018 2:12 PM EST 09/22/2018 2:12 PM EST us Ramonita Cartersanam [employer]ERCIAL [employer]ER CHEMISTRY ORDERABLES Final Res ult [facility] [employer] [address] [facility] , [place] [address] * [facility] LOWER EXTREMITY ARTERIAL PHYSIOLOGICAL (09/01/2018 1:10 PM EST) Anatomical Region Laterality Modality Vascular, Leg Electrocardiogra phy 09/01/2018 12:2 3 PM EST Impressions 09/01/2018 4:36 PM EST CONCLUSIONS Right lower extremity: YOMI: 1.2, suggesting no arterial insufficiency at rest to the level of the ankle. TBI: 1.0, above healing index, possible false elevation due to arterial calcification. Dampened digital waveforms in digits 2-5. Normal triphasic Doppler waveforms and PVR's in the right lower extremity. Left lower extremity: YOMI: 1.3, suggesting no arterial insufficiency at rest to the level of the ankle. TBI: 1.0, above healing index, possible false elevation due to arterial calcification. Dampened digital waveforms in digits 2-5. Normal triphasic Doppler waveforms and PVR's in the left lower extremity. Surjit Hare DO Narrative Procedure Note Surjit Hare, - 09/01/2018 IMPRESSION CONCLUSIONS Right lower extremity: YOMI: 1.2, suggesting no arterial insufficiency atrest to the level of the ankle. TBI: 1.0, above healing index, possible false elevation due to arterial calcification. Dampened digitalwaveforms in digits 2-5. Normal triphasic Doppler waveforms and PVR's in the right lower extremity. Left lower extremity: YOMI: 1.3, suggesting no arterial insufficiency atrest to the level of the ankle. TBI: 1.0, above healing index, possible false elevation due to arterial calcification. Dampened digitalwaveforms in digits 2-5. Normal triphasic Doppler waveforms and PVR's in the left lower extremity. Surjit Hare DO us Viral Cornejo V, DO IMG VASCULAR ORDERABLES Final Result * MM MAMMO DIGITAL DIAGNOSTIC W CAD BILAT (04/06/2018 2:17 PM EDT) Anatomical Region Laterality Modality Breast Bilateral Mammography 04/06/2018 2:45 PM EDT Impressions 04/06/2018 2:45 PM EDT Negative (NEI-Zppelvis-0) ~ RECOMMENDATION: Routine screening mammogram in 1 year. ~ DISCLAIMER * Any patient with a palpable abnormality, unexplained by breast imaging, should be managed on clinical basis by the attending physician. * Breast imaging has a false negative rate of 15%. * The patient was notified by mail of the results of this examination. *The patient's information was entered into a reminder system with a target due date for the next mammogram. The mammogram was reviewed by a Radiologist and CAD. Narrative 04/06/2018 2:45 PM EDT Procedure:MM MAMMO DIGITAL DIAGNOSTIC W CAD BILAT ~ R92.8-Other abnormal and inconclusive findings on diagnostic imaging of ozujbf-LHT-95-CM R92.1-Mammographic calcification found on diagnostic imaging of uoukgc-FOZ-49-CM 62-year-old female with calcifications noted within the right breast in 2014. The patient was requested to return for short-term follow-up. Patient returns today. R92.8-Other abnormal and inconclusive findings on diagnostic imaging of szwlnk-QGP-05-CM R92.1-Mammographic calcification found on diagnostic imaging of onkahc-GTC-53-CM 62-year-old female with calcifications noted within the right breast in 2014. The patient was requested to return for short-term follow-up. Patient returns today. ~ MM MAMMO DIGITAL DIAG CAD BILAT Bilateral CC and MLO view(s) were taken. There are scattered fibroglandular densities. Prior study comparison: Compared with prior studies, the most recent being 08/01/14, 06/20/14 and dating back to 10/17/2008. The previously noted 1 to 5 mm benign-appearing clustered heterogeneous calcifications within the right upper outer quadrant are no longer visualized. Otherwise, no significant interval change. No mammographic evidence of malignancy. ~ Procedure Note Padmini Mann MD - 04/06/2018 Procedure:MM MAMMO DIGITAL DIAGNOSTIC W CAD BILAT ~ R92.8-Other abnormal and inconclusive findings on diagnostic imaging of luylrw-YNK-86-CM R92.1-Mammographic calcification found on diagnostic imaging of hbjhvk-JEP-35-CM 62-year-old female with calcifications noted within the right breast in 2014. The patient was requested to return for short-term follow-up. Patient returns today. R92.8-Other abnormal and inconclusive findings on diagnostic imaging of jtpgbz-EXD-24-CM R92.1-Mammographic calcification found on diagnostic imaging of yvjorb-EIS-11-CM 62-year-old female with calcifications noted within the right breast in 2014. The patient was requested to return for short-term follow-up. Patient returns today. ~ MM MAMMO DIGITAL DIAG CAD BILAT Bilateral CC and MLO view(s) were taken. There are scattered fibroglandular densities. Prior study comparison: Compared with prior studies, the most recentbeing 08/01/14, 06/20/14 and dating back to 10/17/2008. The previously noted 1 to 5 mm benign-appearing clustered heterogeneous calcifications within the right upper outer quadrant are no longer visualized. Otherwise, no significant interval change. No mammographic evidence of malignancy. ~ IMPRESSION: Negative (SJK-Hpjrdrvy-2) ~ RECOMMENDATION: Routine screening mammogram in 1 year. ~ DISCLAIMER * Any patient with a palpable abnormality, unexplained by breast imaging, should be managed on clinical basis by the attending physician. * Breast imaging has a false negative rate of 15%. * The patient was notified by mail of the results of this examination. *The patient's information was entered into a reminder system with atarget due date for the next mammogram. The mammogram was reviewed by a Radiologist and CAD. us Viral Cornejo V, DO IMG MAMMOGRAPHY ORDERABLES Fin al Result * (ABNORMAL) WOUND CULTURE (STAIN INCLUDED) (11/22/2017 1:00 PM EDT) Only the most recent of5 resultswithin the time period is included. Culture Positive Growth(A) 11/26/2017 9:14 AM EDT [facility] Culture Moderate growth of Serratia marcescens SUSCEPTIB ILITY RESULT 11/26/2017 9:14 AM EDT [facility] Culture Sparse growth of Staphylococcus epidermidis SUSCEPTIB ILITY RESULT 11/26/2017 9:14 AM EDT [facility] Comment:No further workup. Culture Sparse growth of Streptococcus intermedius SUSCEPTIB ILITY RESULT 11/26/2017 9:14 AM EDT [facility] Comment:No further workup. Stain No organisms seen 018 9:14 AM EDT [facility] Stain Rare WBCs 11/26/2017 9:14 AM EDT [facility] Swab MAXILLARY SINUS STRUCTURE / Unknown 11/22/2017 1:00 PM EDT 11/22/2017 6:36 PM EDT Narrative Organism Antibiotic Method Susceptibility Serratia marcescens Amikacin SUSCEPTIBILITY RESULT <=16 ug/mL: Susceptible Serratia marcescens Amoxicillin/Clavulan at e SUSCEPTIBILITY RESULT Serratia marcescens Ampicillin SUSCEPTIBILITY RESULT Serratia marcescens Ampicillin/Sulbactam SUSCEPTIBILIT Y RESULT Serratia marcescens Aztreonam SUSCEPTIBILITY RESULT <=4 ug/mL: Susceptible Serratia marcescens Cefazolin SUSCEPTIBILITY RESULT Serratia marcescens Cefepime SUSCEPTIBILITY RESULT Serratia marcescens Cefotaxime SUSCEPTIBILITY RESULT <=2 ug/mL: Susceptible Serratia marcescens Cefoxitin SUSCEPTIBILITY RESULT Serratia marcescens Ceftazidime SUSCEPTIBILITY RESULT <=1 ug/mL: Susceptible Serratia marcescens Ceftriaxone SUSCEPTIBILITY RESULT <=1 ug/mL: Susceptible Serratia marcescens Cefuroxime SUSCEPTIBILITY RESULT Serratia marcescens Ciprofloxacin SUSCEPTIBILITY RESUL T <=1 ug/mL: Susceptible Serratia marcescens Ertapenem SUSCEPTIBILITY RESULT <=0.5 ug/mL: Susceptible Serratia marcescens Gentamicin SUSCEPTIBILITY RESULT <=1 ug/mL: Susceptible Serratia marcescens Imipenem SUSCEPTIBILITY RESULT 1 ug/mL: Susceptible Serratia marcescens Levofloxacin SUSCEPTIBILITY RESULT <=0.25 ug/mL: Susceptible Serratia marcescens Meropenem SUSCEPTIBILITY RESULT <=1 ug/mL: Susceptible Serratia marcescens Nitrofurantoin SUSCEPTIBILITY RESU LT Serratia marcescens Piperacillin/Tazobac ta m SUSCEPTIBILITY RESULT 8 ug/mL: Susceptible Serratia marcescens Tetracycline SUSCEPTIBILITY RESULT 8 ug/mL: Intermediate Serratia marcescens Tigecycline SUSCEPTIBILITY RESULT <=2 ug/mL: Susceptible Serratia marcescens Tobramycin SUSCEPTIBILITY RESULT 4 ug/mL: Susceptible Serratia marcescens Trimethoprim/Sulfame th oxazole SUSCEPTIBILITY RESULT <=2/38 ug/mL: Susceptible Carrillo Manriquez MD MICROBIOLOGY - GENERAL ORDERAB LES Final Result Performing Organization Address City/[facility] [place] [address] * ANAEROBIC CULTURE (NO STAIN) (11/22/2017 1:00 PM EDT) Only the most recent of5 resultswithin the time period is included. Culture No anaerobic growth at 5 days. 11/28/2017 12:26 PM EDT [facility] Swab MAXILLARY SINUS STRUCTURE / Unknown 11/22/2017 1:00 PM EDT 11/22/2017 6:36 PM EDT Carrillo Manriquez MD MICROBIOLOGY - GENERAL ORDERAB LES Final Result Performing Organization Address [facility] [place] [address] * XR ABDOMEN SUPINE ERECT AND DECUBITUS (11/17/2017 5:04 PM EDT) Anatomical Region Laterality Modality Abdomen Radiographic Sharee ging 11/17/2017 5:04 PM EDT Impressions 11/17/2017 5:08 PM EDT Moderate stool Narrative 11/17/2017 5:08 PM EDT XR ABDOMEN SUPINE ERECT AND DECUBITUS 11/17/2017 5:04 PM CLINICAL HISTORY: K59.09-Other hccycthiehdh-ZHN-21-CM COMPARISON: None. PROCEDURE COMMENTS: 3 views per protocol. FINDINGS: No free air or obstruction. Moderate stool involving the colon. Prior cholecystectomy. Numerous phleboliths in the pelvis. Procedure Note Chan Hill MD - 11/17/2017 XR ABDOMEN SUPINE ERECT AND DECUBITUS 11/17/2017 5:04 PM CLINICAL HISTORY: K59.09-Other yscgtjguopyf-OCN-48-CM COMPARISON: None. PROCEDURE COMMENTS: 3 views per protocol. FINDINGS: No free air or obstruction. Moderate stool involving the colon. Prior cholecystectomy. Numerous phleboliths in the pelvis. IMPRESSION: Moderate stool us Rajesh Gutierrez MD PHD IMG DIAGNOSTIC IMAGING DNOG LANTIGUA Final Result * CT SINUS LAND GURPREET WO CONTRAST (11/16/2017 12:46 PM EDT) Anatomical Region Laterality Modality Head Computed Tomogra phy 11/16/2017 12:4 6 PM EDT Impressions 11/16/2017 1:13 PM EDT Prior sinonasal surgery with moderate right maxillary sinus mucosal thickening as detailed above. Narrative 11/16/2017 1:[address] SINUS LAND GURPREET WO CONTRAST 11/16/2017 12:46 PM CLINICAL HISTORY: J32.9-Chronic sinusitis, hljzryrgjud-HVO-43-CM COMPARISON: Limited sinus CT from 07/01/2011. PROCEDURE COMMENTS: Volumetric helical scanning of the paranasal sinuses. Multiplanar reconstructions at bone and soft tissue algorithm. Automated exposure control for dose reduction was used. CTDIvol: 21.6 mGy. DLP: 594 mGy-cm. FINDINGS: Prior sinonasal surgery including bilateral nasal antral windows and partial ethmoidectomies are demonstrated. Interval moderate right and mucosal thickening in the right maxillary sinus, previously mild. Paranasal sinuses otherwise are clear. The surgical drainage pathways of both maxillary sinuses remain widely patent. Nasal septum midline. Normal variant pneumatization of the alden lizbeth redemonstrated. Orbits appear normal. Minimal chronic opacification of a few air cells at the right mastoid apex with associated sclerosis. Tympanomastoid otherwise cavities clear. Edentulous with dentures in place. Moderate to severe right-sided facet arthropathy at C4-5 and mild right-sided facet arthropathy at C3-4. There is minimal atherosclerotic calcification regional to the right common carotid artery bifurcation which is a little tortuous, approaching midline behind the right aspect of the supraglottic airway at the level of the epiglottis, an incidental finding. Surgical anatomy below: Cribriform: No dehiscence Olfactory recess Keros class: Right: Type II (4-7mm.) Left: Type II (4-7mm.) Lamina papyracea: Intact bilaterally. Francie cell: None. Uncinate impingement on orbital wall: None. Anterior ethmoidal artery: Anterior ethmoidal notch abuts the fovea ethmoidalis bilaterally. No supraorbital ethmoid pneumatization. Sphenoid pneumatization is sellar. Anterior clinoid pneumatization: Minimal, partial bilaterally. Pneumatization of the alden lizbeth. Onodi cells: None Sphenoid dehiscence: No carotid canal or optic canal dehiscence. No septal insertion on either carotid canal. Procedure Note Melchor Frederick MD - 11/16/2017 CT SINUS LAND GURPREET WO CONTRAST 11/16/2017 12:46 PM CLINICAL HISTORY: J32.9-Chronic sinusitis, ebqblpoupii-IZV-78-CM COMPARISON: Limited sinus CT from 07/01/2011. PROCEDURE COMMENTS: Volumetric helical scanning of the paranasalsinuses. Multiplanar reconstructions at bone and soft tissue algorithm. Automated exposure control for dose reduction was used. CTDIvol: 21.6 mGy. DLP:594 mGy-cm. FINDINGS: Prior sinonasal surgery including bilateral nasal antral windowsand partial ethmoidectomies are demonstrated. Interval moderate right andmucosal thickening in the right maxillary sinus, previously mild. Paranasalsinuses otherwise are clear. The surgical drainage pathways of both maxillarysinuses remain widely patent. Nasal septum midline. Normal variant pneumatizationof the alden lizbeth redemonstrated. Orbits appear normal. Minimal chronicopacification of a few air cells at the right mastoid apex with associated sclerosis. Tympanomastoid otherwise cavities clear. Edentulous with dentures inplace. Moderate to severe right-sided facet arthropathy at C4-5 and mildright-sided facet arthropathy at C3-4. There is minimal atheroscleroticcalcification regional to the right common carotid artery bifurcation which is alittle tortuous, approaching midline behind the right aspect of the supraglotticairway at the level of the epiglottis, an incidental finding. Surgical anatomy below: Cribriform: No dehiscence Olfactory recess Keros class: Right: Type II (4-7mm.) Left: Type II(4-7mm.) Lamina papyracea: Intact bilaterally. Francie cell: None. Uncinate impingement on orbital wall: None. Anterior ethmoidal artery: Anterior ethmoidal notch abuts the foveaethmoidalis bilaterally. No supraorbital ethmoid pneumatization. Sphenoid pneumatization is sellar. Anterior clinoid pneumatization: Minimal, partial bilaterally.Pneumatization of the alden lizbeth. Onodi cells: None Sphenoid dehiscence: No carotid canal or optic canal dehiscence. Noseptal insertion on either carotid canal. IMPRESSION: Prior sinonasal surgery with moderate right maxillary sinus mucosal thickening as detailed above. us Carrillo Manriquez MD IMG CT ORDERABLES Final Result * (ABNORMAL) LIPASE LEVEL (11/11/2017 9:06 PM EDT) Only the most recent of5 resultswithin the time period is included. [facility] Lipase Lvl 11(L) 13 - 60 IU/L 11/11/2017 9:36 PM EDT [facility] Blood VENOUS BLOOD / Unknown Venipuncture / Unknown 11/11/2017 9:06 PM EDT 11/11/2017 9:10 PM EDT us Kristopher Richard MD CHEMISTRY ORDERABLES Final Resu lt Performing Organization Address City/[facility]/ZIP Co de Phone Number [facility] [address] [place] [address] * MISCELLANEOUS LAB (10/26/2017 1:58 PM EDT) [facility] See Scanned Image 10/28/2017 7:00 PM EDT [facility] Blood BLOOD SPECIMEN / Unknown Venipuncture / Unknown 10/26/2017 1:58 PM EDT 10/26/2017 1:58 PM EDT us Rajesh Gutierrez MD PHD HEMATOLOGY ORDERABLES Final Result EXTERNAL LAB [facility] [address] [place] [address] * PLATELET COUNT (10/26/2017 1:57 PM EDT) Platelet 278 144 - 423 x10(3)/mcL 10/26/2017 2:[address] [facility] MPV 9.5 6.8 - 10.8 fL 10/26/2017 2:[address] [facility] Blood VENOUS BLOOD / Unknown Venipuncture / Unknown 10/26/2017 1:57 PM EDT 10/26/2017 1:58 PM EDT us Rajesh Gutierrez MD PHD HEMATOLOGY ORDERABLES Final Result [facility] [address] [place] [address] * CT ABDOMEN PELVIS WO ORAL OR IV CONTRAST (10/15/2017 2:12 PM EDT) Anatomical Region Laterality Modality Abdomen, Pelvis Computed Tomogra phy 10/15/2017 2:12 PM EDT Impressions 10/15/2017 2:[address] abdomen and pelvis. No acute finding. Narrative 10/15/2017 2:[address] ABDOMEN PELVIS WO ORAL OR IV CONTRAST 10/15/2017 2:12 PM HISTORY: R10.33-Periumbilical vckp-BJR-58-CM R14.0-Abdominal distension (gaseous)-ICD-10-CM Neither intravenous nor oral contrast was given. Automatic exposure control was used for dose reduction.. COMPARISON: 03/24/2012. Liver and spleen are unremarkable. Prior cholecystectomy. Adrenal glands kidneys and other retroperitoneal structures are unremarkable. There is fatty replacement of the pancreas. Gastrointestinal structures are unremarkable. There is no free air or free fluid. No inflammatory mass or fluid collection is present. Prior hysterectomy. No pelvic sidewall lymphadenopathy. Degenerative changes of thoracolumbar spine. Lung bases are clear. Procedure Note Chana Bright MD - 10/15/2017 CT ABDOMEN PELVIS WO ORAL OR IV CONTRAST 10/15/2017 2:12 PM HISTORY: R10.33-Periumbilical yrwh-OUP-89-CM R14.0-Abdominal distension (gaseous)-ICD-10-CM Neither intravenous nor oral contrast was given. Automatic exposurecontrol was used for dose reduction.. COMPARISON: 03/24/2012. Liver and spleen are unremarkable. Prior cholecystectomy. Adrenal glands kidneys and other retroperitoneal structures areunremarkable. There is fatty replacement of the pancreas. Gastrointestinal structures are unremarkable. There is no free air orfree fluid. No inflammatory mass or fluid collection is present. Prior hysterectomy. No pelvic sidewall lymphadenopathy. Degenerative changes of thoracolumbar spine. Lung bases are clear. IMPRESSION: Unremarkable CT abdomen and pelvis. No acute finding. us Ramonita Hernadez APRN [facility] ORDERABLES Final Result * US RIGHT UPPER QUADRANT (10/15/2017 2:02 PM EDT) Anatomical Region Laterality Modality Abdomen Ultrasound 10/15/2017 2:02 PM EDT Impressions 10/15/2017 2:06 PM EDT Impression: Fatty liver Narrative 10/15/2017 2:06 PM EDT Right upper quadrant abdominal ultrasound, [10/15/2017 2:02 PM] Comparison: 03/24/2012 HISTORY: R10.13-Epigastric idit-EQZ-51-CM Findings: Visualized portions of the pancreas and right kidney within normal limits. Fatty liver. Post cholecystectomy. Common bile duct 5 mm in diameter. Procedure Note Sunday Cadena MD - 10/15/2017 Right upper quadrant abdominal ultrasound, [10/15/2017 2:02 PM] Comparison: 03/24/2012 HISTORY: R10.13-Epigastric koxl-TAJ-76-CM Findings: Visualized portions of the pancreas and right kidney withinnormal limits. Fatty liver. Post cholecystectomy. Common bile duct 5 mm indiameter. IMPRESSION: Impression: Fatty liver us Viral Cornejo V DO IMG US ORDERABLES Final Result * CANCER ANTIGEN 19-9 -REF LAB (08/24/2017 4:56 PM EST) CA 19-9 GI 21 0 - 37 U/mL 08/26/2017 1:33 AM EST [email or web address] Comment: INTERPRETIVE INFORMATION: Cancer Antigen-GI (CA 19-9) This test uses Justine CA 19-9 electrochemiluminescent immunoassay. Results obtained with different test methods or kits cannot be used interchangeably. CA 19-9 value is useful in monitoring pancreatic, hepatobiliary, gastric, hepatocellular, and colorectal cancer. CA 19-9 value, regardless of level, should not be interpreted as absolute evidence of the presence or absence of malignant disease. Performed by [facility], [address] [place] [address] [email or web address], Kristopher Batista MD, Lab. Director Blood VENOUS BLOOD / Unknown Venipuncture / Unknown 08/24/2017 4:56 PM EST 08/24/2017 4:56 PM EST us Viral Cornejo V, DO CHEMISTRY ORDERABLES Final Res ult Performing Organization Address [facility]/ZIP Co de Phone Number [employer] [place] [address] [place] [address] * VITAMIN B12 LEVEL (05/17/2017 5:22 PM EDT) Vitamin B12 417 211 - 946 pg/mL 05/17/2017 9:08 PM EDT [facility] Blood VENOUS BLOOD / Unknown Venipuncture / Unknown 05/17/2017 5:22 PM EDT 05/17/2017 5:22 PM EDT us Ramonita Gabo COMMERCIAL TELLER CHEMISTRY ORDERABLES Final Res ult [facility] [address] [place] [address] * POCT DRUG SCREEN (05/17/2017 2:56 PM EDT) Cocaine(Metab.)Scree n, Urine negative SEP OFFICE Opiates negative SEP OFFICE Methamphetamines Negative NG/ML SEP OFFICE Marijuana Metabolite Negative NG/ML SEP OFFICE Benzodiazepine Screen Urine negative SEP OFFICE Barbiturate Screen, Urine negative SEP OFFICE Propoxyphene negative SEP OFFICE Oxycodone Positive NG/ML SEP OFFICE Buprenorphine negative NG/ML SEP OFFICE 05/17/2017 2:56 PM EDT Ramonita Hernadez COMMERCIAL TELLER POINT OF CARE TEST ORDERABLES Final Result SEP OFFICE * PATHOLOGY TISSUE REPORT (03/23/2017 8:24 AM EDT) Only the most recent of2 resultswithin the time period is included. Surgical Pathology Report PATIENT NAME:KAROLINE WILLIAM Surgical Pathology Report Accession Number Collected Date/Time Received Date/Time [id number] 03/23/17 08:24 EDT 03/23/17 11:00 EDT Diagnosis 1) Duodenal Biopsy: - Intact Duodenal Mucosa With Retained Villiform Surface. - Negative For Changes of Celiac Disease, No Pathologic Diagnosis. 2) Random Gastric Biopsy: - Gastric Mucosa With Changes of Reactive Gastropathy. - Negative For H. pylori. 3) Esophageal Biopsy: - Squamous Esophageal Mucosa, Mild Nonspecific Esophagitis. - Negative For Ashley's Metaplasia. 4) Cecal Polyp: - Colonic Mucosa With Edema, Focal Lymphoid Aggregate (Lymphoid Polyp). - Negative For Adenomatous Change. 5) Random Colon Biopsy: - Colonic Mucosa With Increased Lymphoplasmacytic Inflammation and Surface Damage. - Histologic Changes Consistent With Lymphocytic Colitis. 6) Sigmoid Colon Polyp: - Tubular Adenoma, Negative For High-Grade Dysplasia. BLAYNE CORTES (Electronically signed by) Verified: 03/24/2017 [facility] Lab Clinical Information Esophageal dysphagia [R13.14]Lower abdominal pain, unspecified [R10.30] fundal gland polyp, gastric erythema, one small arteriovenous malformation; cecal polyp, sigmoid colon polyp, external hemorrhoids Gross Description Part 1) Received in formalin labeled with the patients name and duodenal biopsy are four fragments of nettles tissue ranging from 0.1 to 0.4 cm in greatest dimension. Entirely submitted in one cassette./ BC Part 2) Received in formalin labeled with the patients name and random gastric biopsy are five fragments of nettles tissue ranging from 0.1 to 0.4 cm in greatest dimension. Entirely submitted in one cassette./ BC Part 3) Received in formalin labeled with the patients name and esophageal biopsy are four fragments of nettles tissue ranging from 0.1 to 0.4 cm in greatest dimension. Entirely submitted in one cassette./ BC Part 4) Received in formalin labeled with the patients name and cecal polyp biopsy are two fragments of nettles tissue ranging from 0.1 to 0.2 cm in greatest dimension. Entirely submitted in one cassette./ BC Part 5) Received in formalin labeled with the patients name and random colon biopsy are multiple fragments of nettles tissue ranging from 0.2 to 0.4 cm in greatest dimension. Entirely submitted in one cassette./ BC Part 6) Received in formalin labeled with the patients name and sigmoid colon polyp are four fragments of nettles tissue ranging from 0.2 to 0.3 cm in greatest dimension. Entirely submitted in one cassette./ QL /DH Microscopic Description Microscopic examination is performed and the findings corroborate the diagnosis. _ [facility] 03/23/2017 8:24 AM EDT us Rajesh Gutierrez MD PHD PATHOLOGY ORDERABLES Final Result Performing Organization Address [facility] [place] [address] * INTRAOP AIRWAY PLACEMENT (03/23/2017 8:19 AM EDT) Narrative [facility] - 03/23/2017 8:19 AM EDT Padmini Talavera CRNA 03/23/2017 8:19 AM Intraop Airway Placement: Induction type: IV Airway type: Nasal cannula salter Procedure Note Padmini Talavera CRNA - 03/23/2017 8:19 AM EDT Intraop Airway Placement: Induction type: IV Airway type: Nasal cannula salter us Semaj Vega MD IN ANESTHESIA Final Resu lt Performing Organization Address City/[facility] Co de Phone Number [facility] [address] [place] [address] * GMED EGD-COLONOSCOPY (03/23/2017 8:00 AM EDT) 03/23/2017 8:00 AM EDT Impressions [facility] - 03/23/2017 10:16 AM EDT Plan: Await pathology results. If you do not receive pathology results within 2 weeks, please call our office for findings and final recommendations. Continue daily MiraLAX. If biopsies are unremarkable, consider treatment for IBS (e.g. prescription laxative vs MiraLAX w/ Bentyl). Colonoscopy in 5 years due to family history. This section is an excerpt of the full report. Rajesh Gutierrez MD PHD GI PROCEDURE ORDERABLES Saul bessy Result - Final Performing Organization Address [facility] Co de Phone Number [facility] [address] [place] [address] * (ABNORMAL) GLUCOSE METER POC (03/23/2017 7:19 AM EDT) Only the most recent of5 resultswithin the time period is included. [facility] Glucose Meter POC 101(H) 70 - 100 mg/dL [facility] POINT OF CARE LABORATORY Sample Type Capillary [facility] Patient Status Non-Critical Patient [facility] Blood specimen (specimen) 03/23/2017 7:19 AM EDT 03/23/2017 7:19 AM EDT Rajesh Gutierrez MD PHD POINT OF CARE TEST ORDERABL ES Final Result Performing Organization Address [facility] de Phone Number [facility]INT [facility]ARE [facility] [address] [place] [address] * HEPATITIS C ANTIBODY - SCREENING (03/02/2017 2:28 PM EDT) [facility] Hep C Ab Negative Negative [facility] Blood specimen (specimen) 03/02/2017 2:28 PM EDT 03/02/2017 8:18 PM EDT Viral Cornejo V, DO HEMATOLOGY ORDERABLES Final Re sult Performing Organization Address [facility] Co de Phone Number [facility] [address] [place] [id number] * DIFFERENTIAL (03/02/2017 2:28 PM EDT) Only the most recent of17 resultswithin the time period is included. Neut Percent 63.7 % [facility] Lymph Percent 29.3 % [facility] [place] Percent 6.8 % [facility] Eos Percent 0.0 % [facility] Baso Percent 0.2 % [facility] Neut# 6.2 1.8 - 7.7 x10(3)/mcL [facility] Lymph# 2.8 0.6 - 4.8 x10(3)/mcL [facility] [place]# 0.7 0.0 - 1.3 x10(3)/mcL [facility] Eos# 0.0 0.0 - 0.5 x10(3)/mcL [facility] Baso# 0.0 0.0 - 0.2 x10(3)/mcL [facility] Blood specimen (specimen) 03/02/2017 2:28 PM EDT 03/02/2017 8:26 PM EDT us Viral Cornejo V, DO HEMATOLOGY ORDERABLES Final Re sult Performing Organization Address City/State/[facility] [place] [address] * SCANNED RADIOLOGY REPORT (06/04/2016 2:58 PM EST) Only the most recent of4 resultswithin the time period is included. Anatomical Region Laterality Modality Cardiac Stress T esting 06/04/2016 2:58 PM EST us Unknown Unknown IMG DIAGNOSTIC IMAGING ORDERABLE S Final Result * PARTIAL THROMBOPLASTIN TIME (06/03/2016 4:13 PM EST) Only the most recent of3 resultswithin the time period is included. Pathologist [facility] PTT 26.0 23.5 - 35.0 second(s) [facility] Comment: Therapeutic range for direct thrombin inhibitors: Argatroban is 1.5 to 3 times the aPTT baseline. Lepirudin is 1.5 to 2 times the aPTT baseline. The aPTT should not exceed 100 seconds. The dosage of Argatroban should be decreased in patients with hepatic impairment. The dosage of Lepirudin should be decreased in renal insufficiency. The aPTT is no longer the appropriate test to monitor unfractionated heparin anticoagulation. Blood specimen (specimen) UPPER LIMB STRUCTURE / Unknown 06/03/2016 4:13 PM EST 06/03/2016 4:13 PM EST Viral Cornejo V, DO HEMATOLOGY ORDERABLES Final Re sult Performing Organization Address [facility] de Phone Number [facility] [address] [place] [address] * (ABNORMAL) PT / INR (06/03/2016 4:13 PM EST) Only the most recent of3 resultswithin the time period is included. PT 13.2(H) 9.3 - 12.3 second(s) [facility] INR 1.18(H) 0.87 - 1.15 [facility] Comment: Level of Therapy Indications Target INR Range Standard Dose Treatment and prophylaxis of venous 2.0 - 3.0 thrombosis, pulmonary embolism High Dose High risk patients with mechanical 2.5 - 3.5 heart valves Blood specimen (specimen) UPPER LIMB STRUCTURE / Unknown 06/03/2016 4:13 PM EST 06/03/2016 4:13 PM EST Viral Cornejo V, DO HEMATOLOGY ORDERABLES Final Re sult Performing Organization Address [facility] Phone Number [facility] [address] [place] [address] * POCT URINALYSIS AUTOMATED (06/03/2016 2:31 PM EST) Only the most recent of11 resultswithin the time period is included. Color, UA CLEAR,YELLOW ,ORANGE,RUST SEP OFFICE Clarity, UA CLEAR,CLOUDY SEP OFFICE Glucose, UA N G/DL% SEP OFFICE Bilirubin, UA N POS/NEG SEP OFFICE Ketones, UA N POS/NEG SEP permit coordinator Grav, UA 1.020 1.001 - 1.035 G/DL SEP OFFICE Blood, UA N POS/NEG SEP OFFICE pH, UA 6 5.0 - 8 SEP OFFICE Protein, UA N POS/NEG SEP OFFICE Urobilinogen, UA N 0.2 - 1.0 MG/DL SEP OFFICE Leukocytes, UA N POS/NEG SEP OFFICE Nitrite, UA N POS/NEG SEP OFFICE Appear BF Clear, Slightly Cloudy Clear, Cloudy SEP OFFICE Lot Number [id number] SEP OFFICE Expiration Date 03/17/18 SEP OFFICE SeriAl # SEP OFFICE Urine specimen (specimen) 06/03/2016 2:31 PM EST us Viral Cornejo V, DO POINT OF CARE TEST ORDERABLES Edited Result - Final SEP OFFICE * EC ECHOCARDIOGRAM COMPLETE W DOPPLER AND COLOR FLOW MAPPING (05/29/2016 10:49 AM EST) Only the most recent of3 resultswithin the time period is included. Ejection Fraction 65 % P[place]AMIS Anatomical Region Laterality Modality Electrocardiogra phy 05/29/2016 9:43 AM EST Impressions 05/29/2016 3:50 PM EST CONCLUSIONS Left Ventricular ejection fraction is estimated at 65%. Mild left atrial dilatation. Narrative Procedure Note Kristopher Crump MD - 05/29/2016 IMPRESSION CONCLUSIONS Left Ventricular ejection fraction is estimated at 65%. Mild left atrial dilatation. us Kristopher Crump MD IMG ECHO ORDERABLES Kaur l Result * NM MYOCARDIAL PERFUSION SPECT STRESS AND REST (05/29/2016 9:39 AM EST) Only the most recent of2 resultswithin the time period is included. Anatomical Region Laterality Modality Nuclear Medicine 05/29/2016 8:19 AM EST Impressions 05/29/2016 3:41 PM EST IMPRESSIONS There are no significant reversible defects. Reversible defects absent. Narrative Procedure Note Kristopher Crump MD - 05/29/2016 IMPRESSION IMPRESSIONS There are no significant reversible defects. Reversible defects absent. us Kristopher Crump MD IMG NM CARDIAC ORDERABLE S Final Result * ST STRESS TEST LEXISCAN (05/29/2016 9:27 AM EST) Only the most recent of2 resultswithin the time period is included. Anatomical Region Laterality Modality Cardiac Stress T esting 05/29/2016 8:55 AM EST Impressions 05/29/2016 9:55 AM EST Exercise ECG Report [facility] Interpretive Statements Stress Test Lexiscan Reason for Exam: pre op clearance Ordering Diagnosis: pre op clearance Resting HR: 66 Peak HR: 87 Resting B/P 110/74 PeaK B/P 244/124 1. Lexiscan 0.4 mg was given IV push at 30 seconds into protocol. 2. Lexiscan injection was done ___with _x__without low level exercise. 3. Termination of test due to protocol completion _x__ yes ___ no. 4. Symptoms: none 5. Aminophylline given x__ no ___ yes 6. Myoview scan report pending. 7. Resting EK. Arrhythmias: 9. Conclusion: COMMENT ON RESTING EKG: NORMAL ARRHYTHMIAS: NONE CONCLUSION: NONDIAGNOSTIC EKG RESPONSE DUE TO SUBMAXIMAL EXERCISE NUCLEAR PORTION PENDING Electronically Signed On 05-29-2016 9:55:44 EST by Gurpreet Brannon MD Narrative Procedure Note Gurpreet Glez MD - 05/29/2016 IMPRESSION Exercise ECG Report [facility] Interpretive Statements Stress Test Lexiscan Reason for Exam: pre op clearance Ordering Diagnosis: pre op clearance Resting HR: 66 Peak HR: 87 Resting B/P 110/74 PeaK B/P 244/124 1. Lexiscan 0.4 mg was given IV push at 30 seconds into protocol. 2. Lexiscan injection was done ___with _x__without low level exercise. 3. Termination of test due to protocol completion _x__ yes ___ no. 4. Symptoms: none 5. Aminophylline given x__ no ___ yes 6. Myoview scan report pending. 7. Resting EK. Arrhythmias: 9. Conclusion: COMMENT ON RESTING EKG: NORMAL ARRHYTHMIAS: NONE CONCLUSION: NONDIAGNOSTIC EKG RESPONSE DUE TO SUBMAXIMAL EXERCISE NUCLEAR PORTION PENDING Electronically Signed On 05-29-2016 9:55:44 EST by Gurpreet Brannon MD us Kristopher Crump MD IMG STRESS ORDERABLES Fi nal Result * US PELVIS AND TRANSVAGINAL NON OB COMPLETE (05/01/2016 12:02 PM EDT) Anatomical Region Laterality Modality Pelvis Ultrasound 05/01/2016 12:0 2 PM EDT Impressions 05/01/2016 2:13 PM EDT Normal study Narrative 05/01/2016 2:13 PM EDT US PELVIS AND TRANSVAGINAL NON OB COMPLETE 05/01/2016 12:02 PM HISTORY: R10.2-Pelvic and perineal ucgw-IAV-64-CM PROCEDURE: Transabdominal and transvaginal pelvic ultrasound. FINDINGS: Uterus surgically absent. Ovaries surgically absent. No focal lesions. Procedure Note Gerardo France MD - 05/01/2016 US PELVIS AND TRANSVAGINAL NON OB COMPLETE 05/01/2016 12:02 PM HISTORY: R10.2-Pelvic and perineal oaik-ZJO-83-CM PROCEDURE: Transabdominal and transvaginal pelvic ultrasound. FINDINGS: Uterus surgically absent. Ovaries surgically absent. No focal lesions. IMPRESSION Normal study us Viral Cornejo V, DO IMG US ORDERABLES Final Result * SCANNED EKG (04/08/2016 5:24 PM EDT) Only the most recent of3 resultswithin the time period is included. Anatomical Region Laterality Modality Other 04/08/2016 5:24 PM EDT us Unknown Unknown IMG ECG ORDERABLES Final Result * TROPONIN-T (04/01/2016 1:58 PM EDT) Only the most recent of4 resultswithin the time period is included. Troponin-T <0.01 <=0.00 ng/mL [facility] Comment: Values > or = 0.01 ng/mL have been shown to have prognostic value. Blood specimen (specimen) 04/01/2016 1:58 PM EDT 04/01/2016 2:01 PM EDT us Iftikhar Pike MD CHEMISTRY ORDERABLES Final R esult [facility] [address] [place] [address] * EK EKG 12 LEAD (04/01/2016 1:14 PM EDT) Only the most recent of8 resultswithin the time period is included. Anatomical Region Laterality Modality Other 04/01/2016 1:14 PM EDT Impressions 04/01/2016 6:17 PM EDT Stationary ECG Study [facility] [place] Interpretive Statements SINUS BRADYCARDIA VOLTAGE CRITERIA FOR LVH no old ekg's for comparison Electronically Signed On 04-01-2016 18:17:17 EDT by Ronal Chambers MD Narrative Procedure Note Ronal Chambers MD - 04/01/2016 IMPRESSION Stationary ECG Study [place] Interpretive Statements SINUS BRADYCARDIA VOLTAGE CRITERIA FOR LVH no old ekg's for comparison Electronically Signed On 04-01-2016 18:17:17 EDT by Ronal Chambers MD us Iftikhar Pike MD IMG ECG ORDERABLES Final Res ult * XR KNEE RIGHT AP LATERAL AND SUNRISE STANDING (02/12/2016 9:17 AM EDT) Anatomical Region Laterality Modality Knee Radiographic Sharee ging 02/12/2016 9:17 AM EDT Impressions 02/12/2016 9:29 AM EDT IMPRESSION: Moderate to severe degenerative change, with progression of medial joint space narrowing, which is now pronounced. No acute bony abnormality identified. Narrative 02/12/2016 9:29 AM EDT XR KNEE RIGHT AP LATERAL AND SUNRISE STANDING 02/12/2016 9:17 AM HISTORY: M25.561-Pain in right uhly-XJT-39-CM. COMPARE: 02/21/2015. Small joint effusion, similar to prior. Moderately severe degenerative changes, with spurring involving the patella, distal femur, proximal tibia. Marked and progressive narrowing of medial femoral tibial joint space. No fracture or dislocation. Procedure Note Hilary Elena MD - 02/12/2016 XR KNEE RIGHT AP LATERAL AND SUNRISE STANDING 02/12/2016 9:17 AM HISTORY: M25.561-Pain in right osoa-TCD-73-CM. COMPARE: 02/21/2015. Small joint effusion, similar to prior. Moderately severe degenerativechanges, with spurring involving the patella, distal femur, proximal tibia. Markedand progressive narrowing of medial femoral tibial joint space. No fractureor dislocation. IMPRESSION: Moderate to severe degenerative change, with progression ofmedial joint space narrowing, which is now pronounced. No acute bonyabnormality identified. us Viral Cornejo V, DO IMG DIAGNOSTIC IMAGING ORDERAB LES Final Result * (ABNORMAL) HB-1 CUSTOM UDS PANEL-[facility] (02/07/2016 10:41 PM EDT) Only the most recent of2 resultswithin the time period is included. Prescribed Drug 1 Lorazepam [facility] Prescribed Drug 2 Percocet(TM) [facility] Prescribed Drug 3 Lorazepam [facility] Prescribed Drug 4 Percocet(TM) [facility] 6-Acetylmorphine,GC/MS NEGATIVE <10 ng/mL [facility] medMATCH 6 Acetylmorphine CONSISTENT [facility] medMatch Comments [facility] Comment: medMATCH comments are: - present when drug test results may be the result of metabolism of one or more drugs or when results are inconsistent with prescribed medication(s) listed. - may be blank when drug results are consistent with prescribed medication(s) listed. Prescribed Drug 1 Lorazepam [facility] Prescribed Drug 2 Percocet(TM) [facility] Prescribed Drug 3 Lorazepam [facility] Prescribed Drug 4 Percocet(TM) [facility] Ritalinic Acid NEGATIVE <100 ng/mL [facility] medMATCH Ritalinic Acid CONSISTENT [facility]Match Comments [facility] Comment: medMATCH comments are: - present when drug test results may be the result of metabolism of one or more drugs or when results are inconsistent with prescribed medication(s) listed. - may be blank when drug results are consistent with prescribed medication(s) listed. Prescribed Drug 1 Lorazepam [facility] Prescribed Drug 2 Percocet(TM) [facility] Prescribed Drug 3 Lorazepam [facility] Prescribed Drug 4 Percocet(TM) [facility] Creatinine, Urine 199.1 > or = 20.0 mg/dL [facility] UA pH 5.84 4.5 - 9.0 [facility] Oxidant NEGATIVE <200 mcg/mL [facility] Amphetamines NEGATIVE <500 ng/mL [facility] medMATCH Amphetamines CONSISTENT [facility] Barbiturates NEGATIVE <300 ng/mL [facility] medMATCH Barbiturates CONSISTENT [facility] Benzodiazepines POSITIVE(A) <100 ng/mL [facility] ALPHAHYDROXYALPRAZOLAM NEGATIVE <25 ng/mL [facility] med[facility] aOH alprazolam CONSISTENT [facility] ALPHAHYDROXYMIDAZOLAM NEGATIVE <50 ng/mL [facility] MEDMATCH AOH MIDAZOLAM CONSISTENT [facility] ALPHAHYDROXYTRIAZOLAM-QU EST NEGATIVE <50 ng/mL [facility] medMATCH aOH triazolam CONSISTENT [facility] Aminoclonazepam NEGATIVE <25 ng/mL [facility] Aminoclonazepam CONSISTENT [facility] Hydroxyethylflurazepam NEGATIVE <50 ng/mL [facility] MEDMATCH OH ET FLURAZEPAM CONSISTENT [facility] LORAZEPAM-QUEST 3,970(H) <50 ng/mL [facility] medMATCH Lorazepam CONSISTENT [facility] NORDIAZEPAM-QUEST NEGATIVE <50 ng/mL [facility] med[facility] Nordiazepam CONSISTENT [facility] OXAZEPAM-QUEST NEGATIVE <50 ng/mL [facility] medMATCH Oxazepam CONSISTENT [facility] TEMAZEPAM-QUEST NEGATIVE <50 ng/mL [facility] medMATCH Temazepam CONSISTENT [facility] Marijuana Metabolite NEGATIVE <20 ng/mL [facility] medMATCH Marijuana Metab [facility]ENT [facility] Cocaine Metabolite NEGATIVE <150 ng/mL [facility] [facility] medMATCH Cocaine Metab CONSISTENT [facility] Methadone NEGATIVE <100 ng/mL [facility] medMATCH Methadone CONSISTENT [facility] Opiates NEGATIVE CONFIRMED <100 ng/mL [facility] CODEINE-QUEST NEGATIVE <50 ng/mL [facility] medMATCH Codeine CONSISTENT [facility] HYDROCODONE-QUEST NEGATIVE <50 ng/mL [facility] [facility]MATCH Hydrocodone CONSISTENT [facility] HYDROMORPHONE-QUEST NEGATIVE <50 ng/mL [facility] [facility] Hydromorphone CONSISTENT [facility] MORPHINE-QUEST NEGATIVE <50 ng/mL [facility] [facility] Morphine CONSISTENT Q [facility] NORHYDROCODONE NEGATIVE <50 ng/mL [facility] MEDMATCH NORHYDROCODONE CONSISTENT [facility] Oxycodone POSITIVE(A) <100 ng/mL [facility] NOROXYCODONE 2,590(H) <50 ng/mL [facility] MEDMATCH NOROXYCODONE CONSISTENT [facility] Comment:Noroxycodone is a me tabolite of Oxycodone. Oxycodone 626(H) <50 ng/mL [facility] medMATCH Oxycodone CONSISTENT [facility] OXYMORPHONE-QUEST 294(H) <50 ng/mL [facility] medMATCH Oxymorphone CONSISTENT [facility] Comment: Oxymorphone is a metabolite of oxycodone as well as a prescribed drug. medMatch Comments [facility] Comment: medMATCH comments are: - present when drug test results may be the result of metabolism of one or more drugs or when results are inconsistent with prescribed medication(s) listed. - may be blank when drug results are consistent with prescribed medication(s) listed. 02/07/2016 10:4 1 PM EDT 02/08/2016 5:02 PM EDT Narrative Resulting Agency Comment Performing Organization Information: Site ID: Name: [employer] Address: [address] [place] [address] [place] [address] Director: Maynor Valera Sample Ph.D. us Viral Cornejo V, DO [facility] ORDERABLE (NON-SEH) Final Result Performing Organization Address City/[facility]/ZIP Co de Phone Number ZA [facility] [address] [place] [address] [place] [address], [facility] * (ABNORMAL) POCT MICROALBUMIN (02/07/2016 2:01 PM EDT) Only the most recent of4 resultswithin the time period is included. Microalb, Ur 20 <=20 MG/L SEP OFFICE Lot Number [id number] SEP OFFICE Expiration Date 01/02 SEP OFFICE SeriAl # SEP OFFICE Urine specimen (specimen) 02/07/2016 2:01 PM EDT us Viral Cornejo V, DO POINT OF CARE TEST ORDERABLES Final Result SEP OFFICE * MRI KNEE RIGHT WO CONTRAST (04/10/2015 2:58 PM EDT) Anatomical Region Laterality Modality Knee Magnetic Resonan ce 04/10/2015 2:58 PM EDT Impressions 04/10/2015 3:30 PM EDT IMPRESSION: 1. Extensive tear of the medial meniscus, including a large radial tear at the anterior horn body junction. There is extrusion of the medial meniscus. 2. Intact cruciate and collateral ligaments. 3. Severe medial compartment and patellofemoral degenerative joint changes. There is subchondral edema within the medial femoral greater than medial tibial surface; please consider subchondral insufficiency fracture especially within the distal femur. 4. Moderate size joint effusion and evidence of synovitis. There is nonspecific soft tissue edema in the prepatellar soft tissues. Narrative 04/10/2015 3:30 PM EDT EXAMINATION: MRI KNEE RIGHT WO CONTRAST DATE: 04/10/2015 2:58 PM HISTORY: Right knee pain and history of osteoarthritis. COMPARISON: Right knee radiographs 04/10/2015. TECHNIQUE: Multiplanar, multisequence MR imaging of the right knee was performed without the use of contrast. FINDINGS: Menisci: There is extensive tearing of the medial meniscus. There is oblique tearing of the posterior horn extending into the body, with extensive horizontal cleavage. Additionally, there is a large complete radial tear near the body and anterior horn junction best seen on series 5, image 19. There is extrusion of the medial meniscus. There are degenerative changes within the lateral meniscus without surface tear. Ligaments: The anterior cruciate ligament is intact. The posterior cruciate ligament is intact. The medial collateral ligament is intact but displaced by the extruded medial meniscus. The lateral supporting structures including the iliotibial band, lateral collateral ligament, and biceps femoris tendon are intact. Osseous structures articulations: There is marrow edema within the medial femoral condyle and medial tibial plateau. This is adjacent to an area of severe and essentially complete articular cartilage loss involving the weightbearing aspect of the medial compartment. There is a hypointense subchondral line within the medial tibial plateau which may represent a subchondral sclerotic area versus an insufficiency fracture. The lateral compartment articular cartilage is diffusely thinned with surface fibrillation. Tricompartmental osteophytes are noted. The extensor mechanism is intact. There is insertional tendinosis of the distal patellar tendon as well as degenerative enthesopathy at the quadriceps and patellar insertions upon the patella. There is severe patellar articular cartilage loss, with complete loss over the median ridge and medial facet. The trochlear groove cartilage is diffusely irregular. There is a moderate size joint effusion and evidence of synovitis. No Salcedo's cyst is identified. There is edema within the prepatellar soft tissues. Procedure Note Massimo Zepeda MD - 04/10/2015 EXAMINATION: MRI KNEE RIGHT WO CONTRAST DATE: 04/10/2015 2:58 PM HISTORY: Right knee pain and history of osteoarthritis. COMPARISON: Right knee radiographs 04/10/2015. TECHNIQUE: Multiplanar, multisequence MR imaging of the right knee was performed without the use of contrast. FINDINGS: Menisci: There is extensive tearing of the medial meniscus. There isoblique tearing of the posterior horn extending into the body, with extensivehorizontal cleavage. Additionally, there is a large complete radial tear near thebody and anterior horn junction best seen on series 5, image 19. There is extrusionof the medial meniscus. There are degenerative changes within the lateral meniscus without surfacetear. Ligaments: The anterior cruciate ligament is intact. The posteriorcruciate ligament is intact. The medial collateral ligament is intact but displacedby the extruded medial meniscus. The lateral supporting structures includingthe iliotibial band, lateral collateral ligament, and biceps femoris tendonare intact. Osseous structures articulations: There is marrow edema within themedial femoral condyle and medial tibial plateau. This is adjacent to an area ofsevere and essentially complete articular cartilage loss involving theweightbearing aspect of the medial compartment. There is a hypointense subchondral linewithin the medial tibial plateau which may represent a subchondral scleroticarea versus an insufficiency fracture. The lateral compartment articularcartilage is diffusely thinned with surface fibrillation. Tricompartmental osteophytesare noted. The extensor mechanism is intact. There is insertional tendinosis of thedistal patellar tendon as well as degenerative enthesopathy at the quadricepsand patellar insertions upon the patella. There is severe patellar articular cartilage loss, with complete loss over the median ridge and medial facet.The trochlear groove cartilage is diffusely irregular. There is a moderate size joint effusion and evidence of synovitis. NoBaker's cyst is identified. There is edema within the prepatellar soft tissues. IMPRESSION: 1. Extensive tear of the medial meniscus, including a large radial tear atthe anterior horn body junction. There is extrusion of the medial meniscus. 2. Intact cruciate and collateral ligaments. 3. Severe medial compartment and patellofemoral degenerative jointchanges. There is subchondral edema within the medial femoral greater than medialtibial surface; please consider subchondral insufficiency fracture especiallywithin the distal femur. 4. Moderate size joint effusion and evidence of synovitis. There isnonspecific soft tissue edema in the prepatellar soft tissues. us Isaac Washingtno MD [facility] MRI ORDERABLES Final Result * XR KNEE RIGHT AP LATERAL AND AXIAL (02/21/2015 3:33 PM EDT) Only the most recent of2 resultswithin the time period is included. Anatomical Region Laterality Modality Knee Radiographic Sharee ging 02/21/2015 3:15 PM EDT Impressions 02/21/2015 3:38 PM EDT IMPRESSION: MILD TO MODERATE DJD. Narrative 02/21/2015 3:38 PM EDT THREE-VIEW RIGHT KNEE, 02/21/2015 HISTORY: Pain in joint. FINDINGS: No fractures or dislocations. No joint effusion. There is mild to degenerative change with joint space narrowing and spurring. No destructive lesions. Procedure Note Theo Yadav MD - 02/21/2015 THREE-VIEW RIGHT KNEE, 02/21/2015 HISTORY: Pain in joint. FINDINGS: No fractures or dislocations. No joint effusion. There is mild to degenerative change with joint space narrowing andspurring. No destructive lesions. IMPRESSION: MILD TO MODERATE DJD. us Jose Bass DO [facility] DIAGNOSTIC IMAGING ORDERAB LES Final Result * MM MAMMO DIGITAL DIAGNOSTIC RIGHT (08/01/2014 1:54 PM EST) Anatomical Region Laterality Modality Breast Right Mammography 08/02/2014 9:08 AM EST Impressions 08/02/2014 11:34 AM EST : Probably benign ([id number]-1) ~ RECOMMENDATION: Follow-up diagnostic mammogram of the right breast in 6 months. ~ * The patient with a palpable abnormality, unexplained by breast imaging, should be managed on clinical basis by the attending physician. * Breast imaging has a false negative rate of 15%. * The patient was notified by mail of the results of this examination. *The patient's information was entered into a reminder system with a target due date for the next mammogram. Narrative 08/02/2014 11:34 AM EST Procedure:MM MAMMO DIGITAL DIAGNOSTIC RIGHT ~ Reason for exam: additional evaluation requested from abnormal screening. ~ MM MAMMO DIGITAL DIAGNOSTIC RIGHT CC and MLO view(s) were taken of the right breast. There are 1-5 benign appearing clustered heterogeneous calcifications in the upper outer quadrant of the right breast. ~ us Viral Clemente V, DO IMG MAMMOGRAPHY ORDERABLES Fin al Result * MM MAMMO DIGITAL SCREENING W CAD BILAT (06/20/2014 3:01 PM EST) Only the most recent of2 resultswithin the time period is included. Anatomical Region Laterality Modality Breast Bilateral Mammography 06/21/2014 9:18 AM EST Impressions 06/21/2014 10:22 AM EST : Incomplete-need additional imaging evaluation ([id number]) ~ RECOMMENDATION: Special view mammogram of the right breast. ~ * The patient with a palpable abnormality, unexplained by breast imaging, should be managed on clinical basis by the attending physician. * Breast imaging has a false negative rate of 15%. * The patient was notified by mail of the results of this examination. *The patient's information was entered into a reminder system with a target due date for the next mammogram. The mammogram was reviewed by a Radiologist and CAD. Narrative 06/21/2014 10:22 AM EST Procedure:MM MAMMO DIGITAL SCREENING W CAD BILAT ~ Reason for exam: screening (asymptomatic). ~ MM MAMMO DIG SCREEN CAD BILAT Bilateral CC and MLO view(s) were taken. There are scattered fibroglandular densities. There are 1-5 new indeterminate grouped punctate calcifications in the mid right breast upper outer quadrant. Compared to prior studies the most recent being 05-25-11. ~ Procedure Note Padmini Mann MD - 06/21/2014 Procedure:MM MAMMO DIGITAL SCREENING W CAD BILAT ~ Reason for exam: screening (asymptomatic). ~ MM MAMMO DIG SCREEN CAD BILAT Bilateral CC and MLO view(s) were taken. There are scattered fibroglandular densities. There are 1-5 new indeterminate grouped punctate calcifications in the mid right breastupper outer quadrant. Compared to prior studies the most recent [id number]. ~ IMPRESSION: Incomplete-need additional imaging evaluation ([id number]-8) ~ RECOMMENDATION: Special view mammogram of the right breast. ~ * The patient with a palpable abnormality, unexplained by breast imaging, should be managed on clinical basis by the attending physician. * Breast imaging has a false negative rate of 15%. * The patient was notified by mail of the results of this examination. *The patient's information was entered into a reminder system with atarget due date for the next mammogram. The mammogram was reviewed by a Radiologist and CAD. us Viral Cornejo V, DO IMG MAMMOGRAPHY ORDERABLES Fin al Result * XR KNEE LEFT AP LATERAL AND AXIAL (06/20/2014 2:32 PM EST) Anatomical Region Laterality Modality Knee Radiographic Sharee ging 06/20/2014 2:17 PM EST Impressions 06/20/2014 2:57 PM EST IMPRESSION: Advancing tricompartment osteoarthritis. Narrative 06/20/2014 2:57 PM EST XR KNEE LEFT AP LATERAL AND AXIAL Jun 20, 2014 02:33:41 PM HISTORY: 719.46-Pain in joint, lower eoy-GGT-2-CM. COMPARISON: 10/02/2009. 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 Further joint space narrowing and more pronounced hypertrophic bony change. No joint effusion. No fracture or dislocation. Procedure Note Chana Bright MD - 06/20/2014 XR KNEE LEFT AP LATERAL AND AXIAL Jun 20, 2014 02:33:41 PM HISTORY: 719.46-Pain in joint, lower kxk-JVT-2-CM. COMPARISON: 10/02/2009. 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 Furtherjoint space narrowing and more pronounced hypertrophic bony change. No joint effusion. Nofracture or dislocation. IMPRESSION: Advancing tricompartment osteoarthritis. us Viral Cornejo V, DO [facility] DIAGNOSTIC IMAGING ORDERAB LES Final Result * XR HUMERUS LEFT AP LATERAL (06/20/2014 2:32 PM EST) Anatomical Region Laterality Modality Arm Radiographic Sharee ging 06/20/2014 2:17 PM EST Impressions 06/20/2014 2:47 PM EST IMPRESSION: Normal study. Narrative 06/20/2014 2:47 PM EST RIGHT HUMERUS 2 VIEWS, Jun 20, 2014 02:33:41 PM HISTORY: 729.5-Pain in nonz-ZXI-2-CM FINDINGS: No significant osseous, joint or soft tissue abnormality is seen. Procedure Note Allen Smart MD - 06/20/2014 RIGHT HUMERUS 2 VIEWS, Jun 20, 2014 02:33:41 PM HISTORY: 729.5-Pain in xycp-DSS-4-CM FINDINGS: No significant osseous, joint or soft tissue abnormality isseen. IMPRESSION: Normal study. us Viral Cornejo V, DO IMG DIAGNOSTIC IMAGING ORDERAB LES Final Result * LUTEINIZING HORMONE (04/11/2014 2:30 PM EDT) Only the most recent of2 resultswithin the time period is included. LH 24.63 mIU/mL [facility] Comment: Suggested Reference Ranges (mIU/mL) Follicular Phase 2.4 - 12.6 Ovulation Phase 14.0 - 95.6 Luteal Phase 1.0 - 11.4 Postmenopause 7.7 - 58.5 Blood specimen (specimen) UPPER LIMB STRUCTURE / Unknown 04/11/2014 2:30 PM EDT 04/11/2014 9:09 PM EDT us Viral Cornejo V, DO CHEMISTRY ORDERABLES Final Res ult [facility] [address] [place] [address] * FOLLICLE STIMULATING HORMONE LEVEL (04/11/2014 2:30 PM EDT) Only the most recent of2 resultswithin the time period is included. FSH 41.40 mIU/mL [facility] Comment: Suggested Reference Range (mIU/mL) Follicular Phase 3.5 - 12.5 Ovulation Phase 4.7 - 21.5 Luteal Phase 1.7 - 7.7 Postmenopause 25.8 - 134.8 Blood specimen (specimen) UPPER LIMB STRUCTURE / Unknown 04/11/2014 2:30 PM EDT 04/11/2014 9:09 PM EDT us Viral Cornejo V, DO CHEMISTRY ORDERABLES Final Res ult Performing Organization Address City/[facility]/ZIP Co de Phone Number [facility] [address] [place] [address] * SCANNED RHYTHM STRIPS (11/14/2013 10:02 AM EDT) Only the most recent of4 resultswithin the time period is included. Anatomical Region Laterality Modality Other us Unknown Unknown IMG ECG ORDERABLES Final Result * MAGNESIUM LEVEL (11/13/2013 4:53 AM EDT) Magnesium 1.9 1.6 - 2.4 mg/dL [facility] Blood specimen (specimen) UPPER LIMB STRUCTURE / Unknown 11/13/2013 4:53 AM EDT 11/13/2013 5:08 AM EDT us Juliane Estevez COMMERCIAL TELLER CHEMISTRY ORDERABLE S Final Result Performing Organization Address [facility] Co de Phone Number [facility] [address] [place] [address] * XR CHEST AP PORTABLE (11/12/2013 10:08 PM EDT) Only the most recent of3 resultswithin the time period is included. Anatomical Region Laterality Modality Chest Radiographic Sharee ging 11/12/2013 9:57 PM EDT Impressions 11/12/2013 10:39 PM EDT IMPRESSION: No acute findings. Narrative 11/12/2013 10:39 PM EDT CLINICAL HISTORY: -CHEST PAIN. COMPARISON: 11/29/2010. TECHNIQUE: XR CHEST AP PORTABLE on Nov 12, 2013 10:08:42 PM. FINDINGS: Apparent nodularity at the right lung base is an artifact caused by the ends of the ribs. The lungs are clear with no pneumothorax or pleural effusion. The heart size and pulmonary vascularity are normal. The upper abdomen is unremarkable. Procedure Note Efrem Pollard MD - 11/12/2013 CLINICAL HISTORY: -CHEST PAIN. COMPARISON: 11/29/2010. TECHNIQUE: XR CHEST AP PORTABLE on Nov 12, 2013 10:08:42 PM. FINDINGS: Apparent nodularity at the right lung base is an artifact causedby the ends of the ribs. The lungs are clear with no pneumothorax or pleural effusion. Theheart size and pulmonary vascularity are normal. The upper abdomen is unremarkable. IMPRESSION: No acute findings. Jared James MD [facility] DIAGNOSTIC IMAGING ORDER BUFFY Final Result * CT HEAD WO CONTRAST (09/08/2013 4:03 PM EST) Only the most recent of2 resultswithin the time period is included. Anatomical Region Laterality Modality Head Computed Tomogra phy 09/08/2013 3:4 7 PM EST Impressions 09/08/2013 4:12 PM EST IMPRESSION: 1. No acute intracranial process by noncontrast head CT. Narrative 09/08/2013 4:[address] HEAD WO CONTRAST Sep 08, 2013 04:04:06 PM HISTORY: -HEADACHE COMPARISON: Noncontrast head CT 10/28/2010. Noncontrast spiral CT head: Sulci ventricles and cisterns remain normal in size shape and position. No focal mass effect. No abnormal attenuation identified brain parenchyma or surrounding spinal fluid spaces. Procedure Note Von Marion MD - 09/08/2013 CT HEAD WO CONTRAST Sep 08, 2013 04:04:06 PM HISTORY: -HEADACHE COMPARISON: Noncontrast head CT 10/28/2010. Noncontrast spiral CT head: Sulci ventricles and cisterns remain normal in size shape and position. Nofocal mass effect. No abnormal attenuation identified brain parenchyma or surrounding spinalfluid spaces. IMPRESSION: 1. No acute intracranial process by noncontrast head CT. Debbie Figueroa MD [facility] CT ORDERABLES Final Res ult * SPECIMEN VALIDITY TEST PANEL-QUEST (08/02/2013 12:00 AM EST) Creatinine, Urine 66.9 > or = 20.0 mg/dL [facility] [place] UA pH 6.28 4.5 - 9.0 [facility] Oxidant NEGATIVE <200 mcg/mL [facility] [place] 08/02/2013 08/04/2013 3:1 9 AM EST Narrative Resulting Agency Comment Performing Organization Information: Site ID: Name: [facility] Address: [address] [place] [address] Director: Tomeka Mckoy PhD Viral Cornejo V, DO [facility] ORDERABLE (NON-SEH) Final Result Performing Organization Address City/[facility]/ZIP Co de Phone Number [facility] [address] [place] [address], [facility] * PDM, HEROIN METAB,QN,W/MEDMATCH,U-QUEST (08/02/2013 12:00 AM EST) Prescribed Drug 1 Lorazepam [facility] [place] 6 Acetylmorphine NEGATIVE <10 ng/mL [facility] [place] medMATCH 6 Acetylmorph CONSISTENT [facility] [place] medMatch Comments [facility] Comment: medMATCH comments are: - present when drug test results may be the result of metabolism of one or more drugs or when results are inconsistent with prescribed medication(s) listed. - may be blank when drug results are consistent with prescribed medication(s) listed. 08/02/2013 08/04/2013 3:1 9 AM EST Narrative Resulting Agency Comment Performing Organization Information: Site ID: Name: [facility] Address: [address] [place] [address] Director: Tomeka Mckoy PhD us Viral Cornejo V, DO [facility] ORDERABLE (NON-SEH) Final Result [facility] [address] [place] [address], [facility] * PDM,METHYLPHENIDATE METAB,QN,W/MEDMATCH,U-QUEST (08/02/2013 12:00 AM EST) Prescribed Drug 1 Lorazepam [facility] [place] Ritalinic Acid NEGATIVE <100 ng/mL [facility] [place] medMATCH Ritalinic Acid CONSISTENT [facility] [place] medMatch Comments [facility] [place] Comment: medMATCH comments are: - present when drug test results may be the result of metabolism of one or more drugs or when results are inconsistent with prescribed medication(s) listed. - may be blank when drug results are consistent with prescribed medication(s) listed. 08/02/2013 08/04/2013 3:1 9 AM EST Narrative Resulting Agency Comment Performing Organization Information: Site ID: Name: [facility] Address: [address] [facility] [place] [address] Director: Tomeka Mckoy PhD us Viral Cornejo V, DO [facility] ORDERABLE (NON-SEH) Final Result Performing Organization Address [facility] Co de Phone Number [facility]realELI[facility]OTH[facility] [address]SEPHINEROTH[facility] [place] [address], [facility] * PDM, COCAINE METAB, W/CONF,W/MEDMATCH,U-QUEST (08/02/2013 12:00 AM EST) Prescribed Drug 1 Lorazepam [facility] Cocaine Metabolite NEGATIVE <150 ng/mL [facility] [place] medMATCH Cocaine Metab CONSISTENT [facility] [place] medMatch Comments [facility] Comment: medMATCH comments are: - present when drug test results may be the result of metabolism of one or more drugs or when results are inconsistent with prescribed medication(s) listed. - may be blank when drug results are consistent with prescribed medication(s) listed. 08/02/2013 08/04/2013 3:1 9 AM EST Narrative Resulting Agency Comment Performing Organization Information: Site ID: Name: [facility] Address: [address] [place] [address] Director: Tomeka Mckoy PhD us Viral Cornejo V, DO [facility] ORDERABLE (NON-SEH) Final Result Performing Organization Address City/[facility]/ZIP Co de Phone Number [facility] [address] [place] [address], [facility] * (ABNORMAL) PDM,BENZODIAZEPINES W/CONF,W/MEDMATCH,U-QUEST (08/02/2013 12:00 AM EST) Prescribed Drug 1 Lorazepam [facility] Benzodiazepines POSITIVE(A) <100 ng/mL [facility] Alphahydroxyalprazolam NEGATIVE <50 ng/mL [facility] medMATCH aOH alprazolam CONSISTENT [facility] Alpha-hydroxytriazolam UR NEGATIVE <50 ng/mL [facility] medMATCH aOH triazolam CONSISTENT [facility] Lorazepam UR QT 2,460(H) <50 ng/mL [facility] medMATCH Lorazepam CONSISTENT [facility] Midazolam UR QT NEGATIVE <50 ng/mL [facility] medMATCH Midazolam CONSISTENT [facility] Nordiazepam Lvl NEGATIVE <50 ng/mL [facility] medMATCH Nordiazepam CONSISTENT [facility] Oxazepam UR QT NEGATIVE <50 ng/mL [facility] medMATCH Oxazepam CONSISTENT Q [facility] Temazepam UR QT NEGATIVE <50 ng/mL [facility] medMATCH Temazepam CONSISTENT [facility] medMatch Comments [facility] Comment: medMATCH comments are: - present when drug test results may be the result of metabolism of one or more drugs or when results are inconsistent with prescribed medication(s) listed. - may be blank when drug results are consistent with prescribed medication(s) listed. 08/02/2013 08/04/2013 3:1 9 AM EST Narrative Resulting Agency Comment Performing Organization Information: Site ID: EMILY Name: [facility] Address: [address] [place] [address] [place] [address] Director: Tomeka Mckoy PhD us Viral Cornejo V, DO [facility]-PDM ORDERABLE (NON-SEH) Final Result Performing Organization Address [facility]/ZIP Co de Phone Number [facility] [address] [facility] [place] [address], [facility] * PDM, AMPHETAMINES, W/CONF,W/MEDMATCH,U-QUEST (08/02/2013 12:00 AM EST) Prescribed Drug 1 Lorazepam [facility] Amphetamines NEGATIVE <500 ng/mL [facility] medMATCH Amphetamines CONSISTENT [facility] medMatch Comments [facility] Comment: medMATCH comments are: - present when drug test results may be the result of metabolism of one or more drugs or when results are inconsistent with prescribed medication(s) listed. - may be blank when drug results are consistent with prescribed medication(s) listed. 08/02/2013 08/04/2013 3:1 9 AM EST Narrative Resulting Agency Comment Performing Organization Information: Site ID: KP Name: [facility] Address: [address] [facility] [place] [address] Director: Propeller Leelee PhD us Viral DO ZA [place]-PDM ORDERABLE (NON-SEH) Final Result Performing Organization Address [facility] Co de Phone Number ZA [facility] [address] [facility] [place] [address], [facility] * (ABNORMAL) PDM, OXYCODONE, W/CONF,W/MEDMATCH,U-QUEST (08/02/2013 12:00 AM EST) Prescribed Drug 1 Lorazepam [facility] Oxycodone POSITIVE(A) <100 ng/mL [facility] Oxycodone 1,210(H) <50 ng/mL [facility] medMATCH Oxycodone INCONSISTENT [facility] Oxymorphone 384(H) <50 ng/mL [facility] medMATCH Oxymorphone SEE NOTE(S) [facility] Comment: Oxymorphone is a metabolite of oxycodone as well as a prescribed drug. medMatch Comments [facility] Comment: medMATCH comments are: - present when drug test results may be the result of metabolism of one or more drugs or when results are inconsistent with prescribed medication(s) listed. - may be blank when drug results are consistent with prescribed medication(s) listed. 08/02/2013 08/04/2013 3:1 9 AM EST Narrative Resulting Agency Comment Performing Organization Information: Site ID: Name: [facility] Address: [address] [place] [address] [place] [address] Director: Tomeka Mckoy PhD us Viral Cornejo V, DO [facility]-PDM ORDERABLE (NON-SEH) Final Result ZA [place] [employer] [address] [place] [address], [facility] * PDM, OPIATES, W/CONF,W/MEDMATCH,U-QUEST (08/02/2013 12:00 AM EST) Prescribed Drug 1 Lorazepam [facility] Opiates NEGATIVE CONFIRMED <100 ng/mL [facility] Codeine NEGATIVE <50 ng/mL [facility] medMATCH Codeine CONSISTENT [facility] Morphine Urine NEGATIVE <50 ng/mL [facility] medMATCH Morphine CONSISTENT Q [facility] Hydrcodone NEGATIVE <50 ng/mL [facility] medMATCH Hydrocodone CONSISTENT [facility] Hydromorphone NEGATIVE <50 ng/mL [facility] medMATCH Hydromorphone CONSISTENT [facility] medMatch Comments [facility] Comment: medMATCH comments are: - present when drug test results may be the result of metabolism of one or more drugs or when results are inconsistent with prescribed medication(s) listed. - may be blank when drug results are consistent with prescribed medication(s) listed. 08/02/2013 08/04/2013 3:1 9 AM EST Narrative Resulting Agency Comment Performing Organization Information: Site ID: Name: [facility] Address: [address] [place] [address] Director: Tomeka Mckoy PhD us Viral Cornejo V, DO [facility]-PDM ORDERABLE (NON-SEH) Final Result Performing Organization Address [facility] Co de Phone Number ZA [facility] [address] [place] [address], [facility] * PDM, METHADONE, W/CONF,W/MEDMATCH,U-QUEST (08/02/2013 12:00 AM EST) Prescribed Drug 1 Lorazepam [facility] Methadone NEGATIVE <150 ng/mL [facility] medMATCH Methadone CONSISTENT [facility] medMatch Comments [facility] Comment: medMATCH comments are: - present when drug test results may be the result of metabolism of one or more drugs or when results are inconsistent with prescribed medication(s) listed. - may be blank when drug results are consistent with prescribed medication(s) listed. 08/02/2013 08/04/2013 3:1 9 AM EST Narrative Resulting Agency Comment Performing Organization Information: Site ID: Name: [facility] Address: [address] [place] [address] Director: Tomeka Mckoy PhD us Viral Cornejo V, DO [facility]-PDM ORDERABLE (NON-SEH) Final Result Performing Organization Address [facility] Co de Phone Number ZA [facility] [address] [place] [address], [facility] * PDM,MARIJUANA METAB W/CONF,W/MEDMATCH,U-QUEST (08/02/2013 12:00 AM EST) Prescribed Drug 1 Lorazepam [facility] Marijuana Metabolite NEGATIVE <20 ng/mL [facility] medMATCH Marijuana Metab CONSISTENT [facility] medMatch Comments [facility] Comment: medMATCH comments are: - present when drug test results may be the result of metabolism of one or more drugs or when results are inconsistent with prescribed medication(s) listed. - may be blank when drug results are consistent with prescribed medication(s) listed. 08/02/2013 08/04/2013 3:1 9 AM EST Narrative Resulting Agency Comment Performing Organization Information: Site ID: Name: [facility] Address: [address] [place] [address] [place] [address] Director: Tomeka Mckoy PhD us Viral Cornejo V, DO [facility]-PDM ORDERABLE (NON-SEH) Final Result [facility] [employer] [address] [facility] [place] [address], [facility] * SCANNED HOLTER MONITOR (06/26/2013 3:48 PM EST) Anatomical Region Laterality Modality Other 06/26/2013 3:48 PM EST us Unknown Unknown IMG HOLTER MONITOR ORDERABLES Fi nal Result * HM HOLTER MONITOR RECORDING AND INTERPRETATION (06/19/2013 3:28 PM EST) Anatomical Region Laterality Modality Holter/Event Mon itoring Impressions 06/28/2013 9:40 AM EST : Sinus 55-188, averaging 78 BPM. 23 PVC's. No PAC's. Narrative 06/28/2013 9:40 AM EST INDICATIONS: LENGTH OF TAPE 24 HRS 16 MINS MEDICATION: SLOWEST RATE 55 FASTEST RATE 128 AVERAGE RATE 78 TOTAL PVC'S 23 TOTAL PAC'S 0 VENTRICULAR TACHYCARDIA SUPRAVENTRICULAR TACHYCARDIA Number of episodes 0 Number of episodes 0 Longest run Beats Longest run Beats Fastest rate Fastest rate OTHER ARRHYTHMIAS: See below. ST & T WAVE CHANGES: See below. SYMPTOMS: See below. Procedure Note Kristopher Crump MD - 06/28/2013 INDICATIONS: LENGTH OF TAPE 24 HRS 16 MINS MEDICATION: SLOWEST RATE 55 FASTEST RATE 128 AVERAGE RATE 78 TOTAL PVC'S 23 TOTAL PAC'S0 VENTRICULAR TACHYCARDIA SUPRAVENTRICULAR TACHYCARDIA Number of episodes 0 Number of episodes 0 Longest run Beats Longest run Beats Fastest rate Fastest rate OTHER ARRHYTHMIAS: See below. ST & T WAVE CHANGES: See below. SYMPTOMS: See below. IMPRESSION: Sinus 55-188, averaging 78 BPM. 23 PVC's. No PAC's. us Kristopher Crump MD [facility] HOLTER MONITOR ORDER BUFFY Final Result * MRI BRAIN WO CONTRAST (05/04/2013 2:20 PM EDT) Only the most recent of2 resultswithin the time period is included. Anatomical Region Laterality Modality Head Magnetic Resonan ce 05/04/2013 Impressions 05/04/2013 3:19 PM EDT IMPRESSION: Normal MRI the brain without contrast. Narrative 05/04/2013 3:19 PM EDT MR brain without contrast 05/04/2013 CLINICAL HISTORY: syncope Findings ; Ventricles normal in size and midline in position. No extra-axial collections. No areas of abnormal signal intensity in the brain parenchyma. Normal flow voids in the intracranial vasculature and dural sinuses Procedure Note Hilary Hathaway MD - 05/04/2013 MR brain without contrast 05/04/2013 CLINICAL HISTORY: syncope Findings ; Ventricles normal in size and midline in position. No extra-axialcollections. No areas of abnormal signal intensity in the brain parenchyma. Normal flow voids inthe intracranial vasculature and dural sinuses IMPRESSION: Normal MRI the brain without contrast. us Viral Cornejo V, DO IMG MRI ORDERABLES Final Resul t * VA US CAROTID DUPLEX BILATERAL (05/04/2013 2:08 PM EDT) Only the most recent of2 resultswithin the time period is included. Anatomical Region Laterality Modality Vascular, Head, Neck Electrocard iography 05/04/2013 1:18 PM EDT Impressions 05/04/2013 2:41 PM EDT FINDINGS Right Carotid: There is no evidence of intimal changes or flow channel narrowing of the RCCA, VIKAS or RECA. Velocities are within normal limits. Antegrade flow is seen in the vertebral artery. Left Carotid: There is no evidence of intimal changes or flow channel narrowing in the LCCA, LICA or LECA. Velocities are within normal limits. Antegrade flow is seen in the vertebral artery. CONCLUSIONS No significant obstructive lesions noted in the extracranial carotid system. Narrative Procedure Note Von Marion MD - 05/04/2013 IMPRESSION FINDINGS Right Carotid: There is no evidence of intimal changes or flow channelnarrowing of the RCCA, VIKAS or RECA. Velocities are within normal limits. Antegrade flow is seen in thevertebral artery. Left Carotid: There is no evidence of intimal changes or flow channelnarrowing in the LCCA, LICA or LECA. Velocities are within normal limits. Antegrade flow is seen in thevertebral artery. CONCLUSIONS No significant obstructive lesions noted in the extracranial carotidsystem. us Viral Cornejo V, DO IMG VASCULAR ORDERABLES Final Result * POCT EKG (04/26/2013 2:05 PM EDT) Only the most recent of2 resultswithin the time period is included. 04/26/2013 2:05 PM EDT Impressions SEP OFFICE - 04/26/2013 2:05 PM EDT Sinus Rhythm WITHIN NORMAL LIMITS us Viral Cornejo V, DO POINT OF CARE CARDIOLOGY Final Result Performing Organization Address City/[facility] Co de Phone Number SEP OFFICE * LDL, CALCULATED (01/28/2013 11:50 AM EDT) Only the most recent of2 resultswithin the time period is included. LDL Calculated 94 <=100 mg/dL [facility] Comment: < 100 Optimal 100 - 129 Near or above optimal 130 - 159 Borderline High 160 - 189 High >= 190 Very High Blood specimen (specimen) 01/28/2013 11:50 AM EDT 01/28/2013 6:50 PM EDT us Viral Cornejo V, DO CHEMISTRY ORDERABLES Final Res ult [facility] [address] [place] [address] * POCT RAPID STREP A (09/28/2012 2:17 PM EDT) Strep A Ag None Detected None Detected Pos/Neg SEP OFFICE Lot Number SEP OFFICE Expiration Date SEP OFFICE SeriAl # SEP OFFICE Control Line Yes/No SEP OFFICE 09/28/2012 2:17 PM EDT Karen Gonzalez MD POINT OF CARE TEST ORDERABLES Final Result SEP OFFICE * POCT INFLUENZA A/B (09/28/2012 2:16 PM EDT) Influenza A Ag negative SEP OFFICE Influenza B Ag negative SEP OFFICE Lot Number SEP OFFICE Expiration Date SEP OFFICE 09/28/2012 2:16 PM EDT Karen Gonzalez MD POINT OF CARE TEST ORDERABLES Final Result SEP OFFICE * (ABNORMAL) PDM PROFILE 1 W/ CONF, W/O MEDMATCH-QUEST (06/01/2012 1:38 PM EST) Creatinine, Urine 30.2 > or = 20.0 mg/dL [facility] UA pH 7.0 4.5 - 9.0 [facility] Oxidant NEGATIVE <200 mcg/mL [facility] Amphetamines NEGATIVE <500 ng/mL [facility] Barbiturates NEGATIVE <300 ng/mL [facility] Benzodiazepines NEGATIVE <100 ng/mL [facility] Marijuana Metabolite NEGATIVE <20 ng/mL [facility] Cocaine Metabolite NEGATIVE <150 ng/mL [facility] Methadone NEGATIVE <150 ng/mL [facility] Opiates NEGATIVE CONFIRMED <100 ng/mL [facility] Codeine NEGATIVE <50 ng/mL [facility] Morphine Urine NEGATIVE <50 ng/mL [facility] Hydrcodone NEGATIVE <50 ng/mL [facility] Hydromorphone NEGATIVE <50 ng/mL [facility] Oxycodone POSITIVE(A) <100 ng/mL [facility] Oxycodone 135(H) <50 ng/mL [facility] Oxymorphone 83(H) <50 ng/mL [facility] Phencyclidine NEGATIVE <25 ng/mL [facility] Propoxyphene, Screen NEGATIVE <300 ng/mL [facility] 06/01/2012 1:38 PM EST 06/02/2012 12:42 AM EST Narrative Resulting Agency Comment Performing Organization Information: Site ID: Name: [facility] Address: [address] [place] [address] [place] [address] Director: Tomeka Mckoy PhD Ar Vaca MD [facility]-PDM ORDERABLE (NON -SEH) Final Result [facility] [address] [place] [address], [facility] * (ABNORMAL) PDM,BENZODIAZEPINE, QN,W/MEDMATCH,U-QUEST (06/01/2012 1:38 PM EST) Prescribed Drug 1 Ativan(TM) Q [facility] Midazolam UR QT NEGATIVE <50 ng/mL [facility] medMATCH Midazolam CONSISTENT [facility] Alphahydroxyalprazolam NEGATIVE <50 ng/mL [facility] medMATCH aOH alprazolam CONSISTENT [facility] Alpha-hydroxytriazolam UR NEGATIVE <50 ng/mL [facility] medMATCH aOH triazolam CONSISTENT [facility] Oxazepam UR QT NEGATIVE <50 ng/mL [facility] medMATCH Oxazepam CONSISTENT Q [facility] Lorazepam UR QT 662(H) <50 ng/mL [facility] medMATCH Lorazepam CONSISTENT [facility] Nordiazepam Lvl NEGATIVE <50 ng/mL [facility] medMATCH Nordiazepam CONSISTENT [facility] Temazepam UR QT NEGATIVE <50 ng/mL [facility] medMATCH Temazepam CONSISTENT [facility] medMatch Comments [facility] Comment: medMATCH comments are: - present when drug test results may be the result of metabolism of one or more drugs or when results are inconsistent with prescribed medication(s) listed. - may be blank when drug results are consistent with prescribed medication(s) listed. 06/01/2012 1:38 PM EST 06/02/2012 12:42 AM EST Narrative Resulting Agency Comment Performing Organization Information: Site ID: Name: [facility] Address: [address] [place] [address] [place] [address] Director: Tomeka Mckoy PhD us Ar Vaca MD [facility]-PDM ORDERABLE (NON -[facility]) Final Result Performing Organization Address City/[facility]/ZIP Co de Phone Number ZA [facility] [address] [facility] [place] [address] * ESTRADIOL LEVEL (03/25/2012 3:44 PM EDT) Pathologist [facility] Estradiol Lvl 17 pg/mL [facility] Comment: Early Follicular 20 - 150 pg/mL Late Follicular 40 - 350 pg/mL Midcycle Peak 120 - 400 pg/mL Luteal Phase 30 - 200 pg/mL Postmenopause 0 - 50 pg/mL Males 0 - 50 pg/mL Blood specimen (specimen) UPPER LIMB STRUCTURE / Unknown 03/25/2012 3:44 PM EDT 03/25/2012 8:19 PM EDT us Ar Vaca MD CHEMISTRY ORDERABLES Fin al Result [facility] [address] [place] [address] * CT ABDOMEN PELVIS W CONTRAST (03/24/2012 11:14 AM EDT) Only the most recent of2 resultswithin the time period is included. Anatomical Region Laterality Modality Abdomen, Chest, Pelvis, Hip Comp uted Tomography 03/24/2012 Impressions 03/24/2012 11:33 AM EDT IMPRESSION: Unremarkable CT abdomen and pelvis. Narrative 03/24/2012 11:[address] ABDOMEN PELVIS W CONTRAST Mar 24, 2012 11:14:41 AM HISTORY: 789.01-Abdominal pain, right upper [id number]. 75 mL of Isovue-370 administered. Oral contrast was given.. COMPARISON: 05/11/2011. The liver and spleen are unremarkable. There is a small accessory spleen, unchanged. There's been a cholecystectomy. Kidneys and pancreas show no significant abnormality. No free air or free fluid is present. Opacified bowel loops are normal. No pelvic mass or adenopathy is seen. There's been a hysterectomy. Procedure Note Chana Bright MD - 03/24/2012 CT ABDOMEN PELVIS W CONTRAST Mar 24, 2012 11:14:41 AM HISTORY: 789.01-Abdominal pain, right upper [id number]-[id number]-CM. 75 mL of Isovue-370 administered. Oral contrast was given.. COMPARISON: 05/11/2011. The liver and spleen are unremarkable. There is a small accessory spleen,unchanged. There's been a cholecystectomy. Kidneys and pancreas show no significantabnormality. No free air or free fluid is present. Opacified bowel loops are normal. No pelvic mass oradenopathy is seen. There's been a hysterectomy. IMPRESSION: Unremarkable CT abdomen and pelvis. M Carlos Sanchez MD IMG CT ORDERABLES Final Result * XR LUMBAR SPINE AP AND LATERAL (11/02/2011 3:20 PM EDT) Anatomical Region Laterality Modality L-spine Radiographic Sharee ging 11/02/2011 2:52 PM EDT Impressions 11/02/2011 3:28 PM EDT IMPRESSION: 1. Multifocal lumbar degenerative change. No acute fracture. Narrative 11/02/2011 3:28 PM EDT Lumbar spine, 3 views, 11/02/2011. INDICATIONS: Back pain, recent history of fall. Three views lumbar spine show no wedge deformity or acute fracture. There is intervertebral narrowing L4-L5 and L5-S1 with less extensive narrowing at L3-L4. Facet hypertrophic changes also are present. The thoracolumbar degenerative changes are present. Procedure Note Ascencion Collins MD - 11/02/2011 Lumbar spine, 3 views, 11/02/2011. INDICATIONS: Back pain, recent history of fall. Three views lumbar spine show no wedge deformity or acute fracture. There is intervertebral narrowing L4-L5 and L5-S1 with less extensivenarrowing at L3-L4. Facet hypertrophic changes also are present. The thoracolumbar degenerative changes are present. IMPRESSION: 1. Multifocal lumbar degenerative change. No acute fracture. us Dania Loving DO IMG DIAGNOSTIC IMAGING ORDERAB LES Final Result * SCANNED OR REPORT (08/05/2011 11:34 AM EST) Narrative Transcriptions Unknown, Unknown - 08/05/2011 11:34 AM EST us Unknown Unknown PROCEDURE/MINOR SURGICAL ORDERAB LES Final Result * CT LIMITED SINUSES WO (07/01/2011 2:20 PM EST) Anatomical Region Laterality Modality Head Computed Tomogra phy 07/01/2011 Impressions 07/03/2011 8:49 AM EST IMPRESSION: 1. Acute right maxillary sinusitis. Widely patent bilateral sinoantral windows. Narrative 07/03/2011 8:49 AM EST LIMITED SINUS CT 07/01/2011 HISTORY: Maxillary sinusitis with right maxillary pain and mucus discharge. No prior. Limited noncontrast paranasal sinus CT coronal plane: Changes for bilateral sinoantral windows with resection bilateral middle nasal turbinate demonstrated.Mucoperiosteal thickening and smaller fluid level dependent right maxillary sinus noted. Visualized paranasal sinuses otherwise clear. Study somewhat limited at level spray artifact off dental hardware. Visualized bony structures otherwise unremarkable. Procedure Note Hilary Hathaway - 07/03/[address] 07/01/2011 HISTORY: Maxillary sinusitis with right maxillary pain and mucusdischarge. No prior. Limited noncontrast paranasal sinus CT coronal plane: Changes for bilateral sinoantral windows with resection bilateral middlenasal turbinate demonstrated.Mucoperiosteal thickening and smaller fluid level dependentright maxillary sinus noted. Visualized paranasal sinuses otherwise clear. Study somewhatlimited at level spray artifact off dental hardware. Visualized bony structures otherwiseunremarkable. IMPRESSION: 1. Acute right maxillary sinusitis. Widely patent bilateral sinoantralwindows. Ar Vaca MD IMG CT ORDERABLES Final Result * (ABNORMAL) VITAMIN D, [id number] (12/25/2010 3:03 PM EDT) Vit D 25 OH 27(L) 30 - 80 ng/mL [facility] Comment: REFERENCE INTERVAL: Vitamin D, 25-Hydroxy This assay accurately quantifies the sum of vitamin D3, 25-hydroxy and vitamin D2, 25-hydroxy. 0-17 years: Deficiency: less than 20 ng/mL Optimum level: greater than or equal to 20 ng/mL* *(Soriano CL et al. Pediatrics 2008; 122: 1142-52.) 18 years and older: Deficiency: Less than 20 ng/mL Insufficiency: 20-29 ng/mL Optimum Level: 30-80 ng/mL Possible Toxicity: Greater than 150 ng/mL Blood specimen (specimen) UPPER LIMB STRUCTURE / Unknown 12/25/2010 3:03 PM EDT 12/25/2010 11:07 PM EDT Ar Vaca MD CHEMISTRY ORDERABLES Fin al Result [facility] [address] [place] [address] * TROPONIN-I (11/29/2010 9:27 AM EDT) Troponin-I 0.00 <=0.06 ng/mL [facility] Comment: Troponin Level Significance < 0.01 ng/mL Negative 0.01 - 0.06 ng/mL Detectable troponin of unknown significance >= 0.07 Possible myocardial injury Note: A variety of mechanisms may cause myocardial injury. The diagnosis of myocardial infarction depends both on elevated levels of troponin and on clinical data that support ischemia as a cause. It is not possible to reliably discriminate ischemic from nonischemic causes by a single cutoff level. However, a rising or falling pattern of troponin values is helpful in discriminating acute injury from chronic causes. Blood specimen (specimen) UPPER LIMB STRUCTURE / Unknown 11/29/2010 9:27 AM EDT 11/29/2010 9:28 AM EDT Della Perez MD CHEMISTRY ORDERABLES Final R esult Performing Organization Address [facility] Co de Phone Number [facility] [address] [place] [address] * D-DIMER (11/29/2010 9:27 AM EDT) D-Dimer <230 <=230 ng/mL [facility] Comment: This test has been clinically validated by the security specialist and approved by the FDA for exclusion of pulmonary embolism (PE) or deep vein thrombosis (DVT) in patients with a low clinical risk assessment. The cutoff for exclusion of PE and DVT is < 230 ng/mL. Increased levels of D-dimer are associated with PE, DVT, disseminated intravascular coagulation, malignancies, inflammation, sepsis, surgery, trauma, , and advanced patient age. [ANEESH 2006 11:295(2): 199-207] Blood specimen (specimen) UPPER LIMB STRUCTURE / Unknown 11/29/2010 9:27 AM EDT 11/29/2010 9:28 AM EDT Della Perez MD HEMATOLOGY ORDERABLES Final Result Performing Organization Address [facility] Co de Phone Number [facility] [address] [place] [address] * XR FOOT RIGHT AP LATERAL AND OBLIQUE (11/05/2010 3:56 PM EDT) Anatomical Region Laterality Modality Foot Radiographic Sharee ging 11/05/2010 Impressions 11/05/2010 4:00 PM EDT IMPRESSION: No evidence of gout or fracture Plantar os calcis spur. Narrative 11/05/2010 4:00 PM EDT Right foot and toes 3 views. 11/05/2010 Clinical history fall and possible gallops. FINDINGS: There is mild hallux valgus deformity. There is no evidence of the centric erosion or definitive evidence of gout. There is no fracture identified. There is mild plantar os calcis spur. Procedure Note Hilary Hathaway MD - 11/05/2010 Right foot and toes 3 views. 11/05/2010 Clinical history fall and possible gallops. FINDINGS: There is mild hallux valgus deformity. There is no evidence of the centricerosion or definitive evidence of gout. There is no fracture identified. There is mild plantar os calcis spur. IMPRESSION: No evidence of gout or fracture Plantar os calcis spur. us Ar Vaca MD IMG DIAGNOSTIC IMAGING O RDERABLES Final Result * DX BONE DENSITY AXIAL SKELETON (11/05/2010 3:43 PM EDT) Anatomical Region Laterality Modality Dexa Scan Impressions 11/07/2010 7:15 AM EDT : Bone mineral density is in the low bone density range. USEFULNESS OF THE SPINE MEASUREMENT IS LIMITED IN PATIENTS OVER THE AGE OF 70 DUE TO DEGENERATIVE BONY SCLEROSIS Following the Surgeon General's recommendations additional interventions are to include but not limited to drug therapy, physical therapy and nutrition counseling. The World Health Organization defines normal bone mass for postmenopausal women as a T-Score at or above -1, osteopenia as a T-Score between -1 and -2.5, osteoporosis as a T-Score at or below -2.5 and severe osteoporosis at or below -2.5 with a fracture. A patient's risk for fracture doubles for each standard deviation decline in bone density. Salima Howell PA-C / Maulik Keenan M.D., ORESTES, CCD Narrative 11/07/2010 7:15 AM EDT Bone densitometry was performed on [email or web address] No comparisons available. CLINICAL INDICATIONS: Patient is a postmenopausal woman with a history of : Back pain, Hip pain. BMD (g/cm2) T-SCORE Spine, L1-4 1.154 +1.0 Hip Neck, Left 0.916 +0.6 Hip Total, Left 1.221 +2.3 Hip Neck, Right 0.672 -1.6 Hip Total, Right 1.159 +1.8 Spine and hip portion of the study is limited by body habitus. FRAX - the ten year probability of fracture Major osteoporotic 1.6% Hip fracture 1.6% Procedure Note Boyd Ray R - 11/07/2010 Bone densitometry was performed on [employer] No comparisons available. CLINICAL INDICATIONS: Patient is a postmenopausal woman with a history of : Back pain, Hippain. BMD (g/cm2) T-SCORE Spine, L1-4 1.154 +1.0 Hip Neck, Left 0.916 +0.6 Hip Total, Left 1.221 +2.3 Hip Neck, Right 0.672 -1.6 Hip Total, Right 1.159 +1.8 Spine and hip portion of the study is limited by body habitus. FRAX - the ten year probability of fracture Major osteoporotic 1.6% Hip fracture 1.6% IMPRESSION: Bone mineral density is in the low bone density range. USEFULNESS OF THE SPINE MEASUREMENT IS LIMITED IN PATIENTS OVER THE AGEOF 70 DUE TO DEGENERATIVE BONY SCLEROSIS Following the Surgeon General's recommendations additional interventionsare to include but not limited to drug therapy, physical therapy andnutrition counseling. The World Health Organization defines normal bone mass for postmenopausalwomen as a T-Score at or above -1, osteopenia as a T-Score between -1 and-2.5, osteoporosis as a T-Score at or below -2.5 and severe osteoporosisat or below -2.5 with a fracture. A patient's risk for fracture doublesfor each standard deviation decline in bone density. Salima Howell PA-C / Maulik Keenan M.D., ORESTES, CCD us Ar Vaca MD IMG DEXA ORDERABLES Kaur l Result * SCANNED LABS (04/29/2010 12:00 AM EDT) Only the most recent of2 resultswithin the time period is included. Narrative 04/29/2010 12:18 PM EDT Procedure Note Unknown, U - 04/29/2010 6:14 PM EDT us U Unknown HEMATOLOGY ORDERABLES Final Resu lt * SCANNED PRE/POST PROCEDURES (04/25/2010 12:00 AM EDT) Narrative 04/25/2010 2:43 AM EDT Ordered by an unspecified provider. Transcriptions Unknown, U - 04/25/2010 2:43 AM EDT us U Unknown PROCEDURE/MINOR SURGICAL ORDERAB LES Final Result * SCANNED ANESTHESIA FORMS (04/25/2010 12:00 AM EDT) Narrative 04/25/2010 2:43 AM EDT Ordered by an unspecified provider. Transcriptions Unknown, U - 04/25/2010 2:43 AM EDT us U Unknown PROCEDURE/MINOR SURGICAL ORDERAB LES Final Result * (ABNORMAL) DRUG SCREEN URINE (FINAL) (03/23/2010 8:55 PM EDT) Anticonvulsants Absent [facility] Antidepressants Absent [facility] Antihistamines Absent [facility] Cardiac Depressants/Beta Blockers Absent [facility] Barbiturates/Hypnot ics Absent [facility] Opiates/Narcotic Analgesics Absent [facility] Other Analgesics Absent [facility] Stimulants Absent [facility] Tranquilizers Present(A) [facility] Comment: Tranquilizers _ Benzodiazepine Class _ Carisoprodol _ Meprobamate x Phenothiazine Metabolites (unconfirmed) Miscellaneous Absent [facility] Urine specimen (specimen) 03/23/2010 8:55 PM EDT 03/24/2010 6:28 PM EDT Gabby Capone MD URINE ORDERABLES Final Resul t [facility] [address] [place] [address] * (ABNORMAL) DRUG SCREEN RAPID (03/23/2010 8:55 PM EDT) Tricyclic Rapid Absent [facility] Barbiturate Rapid Absent [facility] Methadone Rapid Absent [facility] Benzodiazepines Rapid Present(A) [facility] Cannabinoid Rapid Absent [facility] Opiate Rapid Absent [facility] Amphetamine Rapid Absent [facility] Cocaine Rapid Absent [facility] Propoxyphene Rapid Absent [facility] Methamphetamine Rapid Absent [facility] Urine specimen (specimen) 03/23/2010 8:55 PM EDT 03/23/2010 9:00 PM EDT Gabby Capone MD URINE ORDERABLES Final Resul t Performing Organization Address [facility] Co de Phone Number [facility] [address] [place] [address] * (ABNORMAL) .DRUG SCREEN URINE (PRELIMINARY) (03/23/2010 8:55 PM EDT) Cannabinoid Metabolites Absent 50 ng/mL [facility] Benzodiazepine Class Absent 200 ng/mL [facility] Cocaine Metab Absent 300 ng/mL [facility] Opiates Class Present(A) 300 ng/mL [facility] Barbiturate Class Absent 200 ng/mL [facility] Amphetamine Class Absent 1000 ng/mL [facility] Urine specimen (specimen) 03/23/2010 8:55 PM EDT 03/24/2010 6:28 PM EDT Gabby Capone MD URINE ORDERABLES Final Resul t Performing Organization Address [facility] Co de Phone Number [facility] [address] [place] [address] * ALCOHOL MEDICAL (03/23/2010 7:51 PM EDT) Alcohol Medical <10 mg/dL [facility] Blood specimen (specimen) UPPER LIMB STRUCTURE / Unknown 03/23/2010 7:51 PM EDT 03/23/2010 7:51 PM EDT Gabby Capone MD CHEMISTRY ORDERABLES Final R esult Performing Organization Address [facility] Co de Phone Number [facility] [address] [place] [address] * ACETAMINOPHEN LEVEL (03/23/2010 7:51 PM EDT) Acetaminophen Lvl <10 <=30 mcg/mL [facility] Comment: Toxic Overdose: Acetamin levels > 200 ug/mL 4 hours after ingestion - Hepatic necrosis is probable. Acetamin levels > 50 ug/mL 12 hours after ingestion - Hepatic necrosis is probable. Blood specimen (specimen) UPPER LIMB STRUCTURE / Unknown 03/23/2010 7:51 PM EDT 03/23/2010 9:10 PM EDT Gabby Capone MD CHEMISTRY ORDERABLES Final R esult Performing Organization Address [facility] Co de Phone Number [facility] [address] [place] [address] * SALICYLATE LEVEL (03/23/2010 7:51 PM EDT) Salicylate <1.5 mg/dL [facility] Comment: Therapeutic Range: < 20 mg/dL Mild Toxicity: 30 - 40 mg/dL Severe Toxicity > 60 mg/dL Blood specimen (specimen) UPPER LIMB STRUCTURE / Unknown 03/23/2010 7:51 PM EDT 03/23/2010 9:10 PM EDT us Gabby Capone MD CHEMISTRY ORDERABLES Final R esult Performing Organization Address [facility] Co de Phone Number [facility] [address] [place] [address] * SCANNED OR REPORT (03/04/2010 12:00 AM EDT) Narrative 03/04/2010 9:40 AM EDT Ordered by an unspecified provider. Transcriptions Unknown, U - 03/04/2010 3:38 AM EDT us U Unknown PROCEDURE/MINOR SURGICAL ORDERAB LES Final Result * SCANNED OR REPORT (03/02/2010 12:00 AM EDT) Narrative 03/02/2010 10:14 AM EDT Ordered by an unspecified provider. Transcriptions Unknown, U - 03/02/2010 10:04 AM EDT us U Unknown PROCEDURE/MINOR SURGICAL ORDERAB LES Final Result * SCANNED OR REPORT (03/02/2010 12:00 AM EDT) Narrative 03/02/2010 10:14 AM EDT Ordered by an unspecified provider. Transcriptions Unknown, U - 03/02/2010 10:04 AM EDT us U Unknown PROCEDURE/MINOR SURGICAL ORDERAB LES Final Result * SCANNED OR REPORT (03/02/2010 12:00 AM EDT) Narrative 03/02/2010 5:13 AM EDT Ordered by an unspecified provider. Transcriptions Unknown, U - 03/02/2010 5:04 AM EDT us U Unknown PROCEDURE/MINOR SURGICAL ORDERAB LES Final Result * SCANNED OR REPORT (02/27/2010 12:00 AM EDT) Narrative 02/27/2010 6:40 AM EDT Ordered by an unspecified provider. Transcriptions Unknown, U - 02/27/2010 6:35 AM EDT us U Unknown PROCEDURE/MINOR SURGICAL ORDERAB LES Final Result * SCANNED OR REPORT (02/04/2010 12:00 AM EDT) Narrative 02/05/2010 2:59 PM EDT Ordered by an unspecified provider. Transcriptions Unknown, U - 02/04/2010 1:13 PM EDT us U Unknown PROCEDURE/MINOR SURGICAL ORDERAB LES Final Result * EK EKG REG (01/01/2010 2:38 PM EDT) Only the most recent of4 resultswithin the time period is included. Anatomical Region Laterality Modality Other 01/01/2010 2:38 PM EDT Narrative 01/01/2010 5:35 PM EDT Sinus rhythm Normal ECG Stereoptic Projection Topographer- VALERIA OSORIO Reading Physician- VALERIA OSORIO Released Date Time- 01/01/10 1735 Procedure Note Valeria Osorio MD - 01/01/2010 Sinus rhythm Normal ECG Stereoptic Projection Topographer- VALERIA OSORIO Reading Physician- VALERIA OSORIO Released Date Time- 01/01/10 1735 Efrem Zimmerman MD [facility] HISTORICAL Fi nal Result * MM DIG SCR ADIS PANEL W/CAD GC (12/30/2009 11:25 AM EDT) Only the most recent of2 resultswithin the time period is included. Anatomical Region Laterality Modality Other 12/30/2009 11:2 5 AM EDT Narrative 12/30/2009 2:22 PM EDT Procedure-GC MM DIG SCR ADIS PANEL W/CAD GC MM DIGITAL SCR BILAT PANEL Bilateral CC and MLO view(s) were taken. The breast tissue is almost entirely fat. There is a 7 mm. round sharply defined mass deep in the retro-areolar region of the right breast seen only on the craniocaudal view. It is unchanged since multiple previous films dating back to 2004. Mammogram of the contralateral breast demonstrates no evidence of malignancy. No significant changes when compared with prior studies. IMPRESSION- Benign finding ([id number]-6) Stable mass right breast. RECOMMENDATION- Routine screening mammogram in 1 year. * The patient with a palpable abnormality, unexplained by breast imaging, should be managed on clinical basis by the attending physician. * Breast imaging has a false negative rate of 15%. * The patient was notified by mail of the results of this examination. The mammogram was reviewed by a Radiologist and CAD. Stereoptic Projection Topographer- MARY ANN Thomas Physician- BOYD RAY MD Released Date Time12/30/09 1444 Procedure Note AmosBoyd curtis R - 12/30/2009 Procedure-GC MM DIG SCR ADIS PANEL W/CAD GC MM DIGITAL SCR BILAT PANEL Bilateral CC and MLO view(s) were taken. The breast tissue is almost entirely fat. There is a 7 mm. round sharply defined mass deep in the retro-areolar region of the right breast seen only on the craniocaudal view. It is unchanged since multiple previous films dating back to 2004. Mammogram of the contralateral breast demonstrates no evidence of malignancy. No significant changes when compared with prior studies. IMPRESSION- Benign finding (CNO-Pofnqgiz-2) Stable mass right breast. RECOMMENDATION- Routine screening mammogram in 1 year. * The patient with a palpable abnormality, unexplained by breast imaging, should be managed on clinical basis by the attending physician. * Breast imaging has a false negative rate of 15%. * The patient was notified by mail of the results of this examination. The mammogram was reviewed by a Radiologist and CAD. Stereoptic Projection Topographer- MARY ANN Thomas Physician- BOYD RAY MD Released Date Time12/30/09 1444 Ar Vaca MD [facility] RAD [facility] Final Result * MR LOW EXT ANY JNT W/O CONT GC (10/11/2009 10:00 AM EDT) Anatomical Region Laterality Modality Other 10/11/2009 10:0 0 AM EDT Narrative 10/11/2009 2:51 PM EDT MRI of the left knee. Indications- Pain. History- Pain. Technique- Long and short imaging parameters were obtained in the sagittal, coronal and axial orientation. Examination demonstrates a tear of the medial meniscal root. Meniscal substance extrusion is noted indicating compromise of the hoop mechanism. Extensive mucoid degeneration is seen throughout the posterior horn. There is mucoid degeneration of the posterior horn of the lateral meniscus, but no evidence of discrete tear. The ligaments, extensor mechanism and retinaculum demonstrate normal course, morphology and signal characteristics. There is severe degenerative disease of the patellofemoral compartment radiographically. Significant articular cartilage compromise, with subcortical cyst formation, osteophyte formation and cortical irregularity are noted. Less prominent disease radiographically is seen in the medial compartment. Impression- 1. Medial meniscal root tear with radiographic evidence of hoop mechanism compromise. More extensive mucoid degeneration is seen throughout the posterior horn. 2. Patellofemoral greater than medial compartment disease. 3. Mucoid degeneration in the posterior horn of the lateral meniscus, but no evidence of discrete tear. Stereoptic Projection Topographer- GRZEGORZ Thomas Physician- JEFFERY CIFUENTES M.D. Released Date Time- 10/11/09 1531 Procedure Note Jeffery Cifuentes - 10/11/2009 MRI of the left knee. Indications- Pain. History- Pain. Technique- Long and short imaging parameters were obtained in the sagittal, coronal and axial orientation. Examination demonstrates a tear of the medial meniscal root. Meniscal substance extrusion is noted indicating compromise of the hoop mechanism. Extensive mucoid degeneration is seen throughout the posterior horn. There is mucoid degeneration of the posterior horn of the lateral meniscus, but no evidence of discrete tear. The ligaments, extensor mechanism and retinaculum demonstrate normal course, morphology and signal characteristics. There is severe degenerative disease of the patellofemoral compartment radiographically. Significant articular cartilage compromise, with subcortical cyst formation, osteophyte formation and cortical irregularity are noted. Less prominent disease radiographically is seen in the medial compartment. Impression- 1. Medial meniscal root tear with radiographic evidence of hoop mechanism compromise. More extensive mucoid degeneration is seen throughout the posterior horn. 2. Patellofemoral greater than medial compartment disease. 3. Mucoid degeneration in the posterior horn of the lateral meniscus, but no evidence of discrete tear. Stereoptic Projection Topographer- GRZEGORZ Thomas Physician- JEFFERY CIFUENTES M.D. Released Date Time- 10/11/09 1531 Ar Vaca MD [facility] Final Result * XR KNEE GC (10/02/2009 5:25 AM EDT) Anatomical Region Laterality Modality Other 10/02/2009 5:25 AM EDT Narrative 10/02/2009 7:38 AM EDT Four view left knee, 10/02/2009. Indications- Trauma, pain. Findings- 4 views of the left knee are compared to previous exam, 09/25/2009. No significant interval change. Mild tricompartmental osteoarthritis, which is stable. No acute fractures, dislocations or joint effusion. Impression- Stable left knee. Mild tricompartmental osteoarthritis. Stereoptic Projection Topographer- GRZEGORZ Thomas Physician- DISHA CORDERO M.D. Released Date Time- 10/02/09 0956 Procedure Note Disha Cordero - 10/08/2009 Four view left knee, 10/02/2009. Indications- Trauma, pain. Findings- 4 views of the left knee are compared to previous exam, 09/25/2009. No significant interval change. Mild tricompartmental osteoarthritis, which is stable. No acute fractures, dislocations or joint effusion. Impression- Stable left knee. Mild tricompartmental osteoarthritis. Stereoptic Projection Topographer- GRZEGORZ GARCIA Reading Physician- DISHA CORDERO M.D. Released Date Time- 10/02/09 0956 Debbie Figueroa MD [facility] HISTORICAL Final Result * CT ABD/PELVIS PROCESS MACHINE OPERATOR GC (04/18/2009 8:20 AM EDT) Only the most recent of4 resultswithin the time period is included. Anatomical Region Laterality Modality Other 04/18/2009 8:20 AM EDT Narrative 04/18/2009 11:[address] abdomen and pelvis, 04/18/2009. History- Bowel problems. Scans done at 5 mm intervals through abdomen and pelvis following oral and IV (95 mL Optiray-320) contrast, with comparison to previous 02/06/[address] Abdomen- 1. Mild diffuse fatty infiltration of the liver. No focal liver lesions. Prior cholecystectomy. Small smoothly margined hypodense area in lateral aspect of mid portion of left kidney, stable from prior and compatible with a renal cyst. Kidneys otherwise unremarkable. Pancreas atrophic. Adrenals unremarkable. Small accessory splenule. There is some ring artifact in the central aspect of the images secondary to patient's size. No upper abdominal mass, adenopathy, or localized inflammatory process. CT pelvis- Artifact is more prominent on images through the pelvis. No ureteral dilatation or stone. CT appearance of small and large bowel is unremarkable. Patient has had a prior hysterectomy. CT appearance of small and large bowel within the pelvis is unremarkable. Impression- Although the study is technically limited due to ring artifact secondary to patient's size, no acute intra-abdominal or intra-pelvic pathologic process is identified, and there has been no significant change from prior 02/06/2009 exam. Stereoptic Projection Topographer- CARMINA KAYE Reading Physician- HILARY ELENA MD Released Date Time- 04/18/09 1619 Procedure Note Hilary Elena - 09/27/2009 CT abdomen and pelvis, 04/18/2009. History- Bowel problems. Scans done at 5 mm intervals through abdomen and pelvis following oral and IV (95 mL Optiray-320) contrast, with comparison to previous 02/06/[address] Abdomen- 1. Mild diffuse fatty infiltration of the liver. No focal liver lesions. Prior cholecystectomy. Small smoothly margined hypodense area in lateral aspect of mid portion of left kidney, stable from prior and compatible with a renal cyst. Kidneys otherwise unremarkable. Pancreas atrophic. Adrenals unremarkable. Small accessory splenule. There is some ring artifact in the central aspect of the images secondary to patient's size. No upper abdominal mass, adenopathy, or localized inflammatory process. CT pelvis- Artifact is more prominent on images through the pelvis. No ureteral dilatation or stone. CT appearance of small and large bowel is unremarkable. Patient has had a prior hysterectomy. CT appearance of small and large bowel within the pelvis is unremarkable. Impression- Although the study is technically limited due to ring artifact secondary to patient's size, no acute intra-abdominal or intra-pelvic pathologic process is identified, and there has been no significant change from prior 02/06/2009 exam. Stereoptic Projection Topographer- CARMINA Thomas Physician- HILARY ELENA MD Released Date Time- 04/18/09 1619 us Cathleen Das IMG [facility] STAR RAD HISTORICAL Kaur l Result * XR FLAT AND UPRIGHT ABDOMEN GC (04/15/2009 5:42 PM EDT) Anatomical Region Laterality Modality Other 04/15/2009 5:42 PM EDT Narrative 04/15/2009 9:10 PM EDT Abdominal series (5 views)- Generalized abdominal pain. Morbid obesity. Comparison with 08/17/2006 exam. The study is somewhat limited secondary to the patient's large body habitus. Nonobstructive bowel gas pattern. The visualized lung bases are clear. No visualized free air. Multilevel degenerative change of the lumbosacral spine. Multiple scattered pelvic phleboliths. Prior cholecystectomy. Impression- Nonspecific, nonobstructive abdominal series. Stereoptic Projection Topographer- CHANA Thomas Physician- SAJAN GONZALEZ DO Released Date Time- 04/16/09 0015 Procedure Note Sajan Gonzalez - 09/27/2009 Abdominal series (5 views)- Generalized abdominal pain. Morbid obesity. Comparison with 08/17/2006 exam. The study is somewhat limited secondary to the patient's large body habitus. Nonobstructive bowel gas pattern. The visualized lung bases are clear. No visualized free air. Multilevel degenerative change of the lumbosacral spine. Multiple scattered pelvic phleboliths. Prior cholecystectomy. Impression- Nonspecific, nonobstructive abdominal series. Stereoptic Projection Topographerluh Thomas PhysicianMargaux GONZALEZ DO Released Date Time- 04/16/09 0015 Cathleen Das IMG [facility] RAD HISTORICAL [place]aur l Result * CC CARDIAC PROCEDURE (12/27/2008 7:33 AM EDT) Anatomical Region Laterality Modality Other 12/27/2008 7:33 AM EDT Narrative 12/27/2008 8:09 AM EDT Date of procedure- 12/27/2008 Procedures- Left heart catheterization, coronary angiography, left ventriculography, right iliac angiography and single plane left ventriculography. Indications- See chart. Technique- Informed consent was obtained after the risks, benefits, and alternatives were explained to the patient, and all questions were answered. The patient was brought to the catheterization suite where she was prepped and draped in the usual sterile fashion. One percent Xylocaine was used to anesthetize the area over the right femoral artery. A 5-Qatari hemostasis sheath was placed in the right femoral artery using a modified Seldinger technique. Selective coronary angiography of the right and left coronary arteries was performed using the standard technique. A 5-Qatari angled pigtail catheter was used to perform single plane left ventriculography. Pull-back revealed no gradient. At the conclusion of the procedure, a right iliac angiogram was performed by hand injection of 5-6 ml of contrast through the hemostasis sheath, and, subsequently, Angio-Seal kit was used to obtain hemostasis. RESULTS- LV is 140/12. AO is 140/70. Right iliac angiography- Right iliac angiography was performed by hand injection of 5-6 ml of contrast through the hemostasis sheath and demonstrates no disease. Single plane left ventriculography demonstrates normal left ventricular wall motion and function with an EF of 57%. No MR. CORONARY ANGIOGRAPHY- The left main is near-normal. The LAD is mildly tortuous and normal. The circumflex is mildly tortuous and normal. The right coronary artery is dominant, tortuous and normal. IMPRESSION- 1. Tortuous coronary arteries with no disease. 2. Normal LV function. PLAN- Evaluate for noncardiac causes of chest pain as an outpatient. CC- Dr. Crump and Dr. Froilan Vaca. Stereoptic Projection Topographer- LAURIE Thomas Physician- KRISTOPHER CRUMP MD Released Date Time- 12/27/08 1354 Procedure Note Kristopher Crump - 09/26/2009 Date of procedure- 12/27/2008 Procedures- Left heart catheterization, coronary angiography, left ventriculography, right iliac angiography and single plane left ventriculography. Indications- See chart. Technique- Informed consent was obtained after the risks, benefits, and alternatives were explained to the patient, and all questions were answered. The patient was brought to the catheterization suite where she was prepped and draped in the usual sterile fashion. One percent Xylocaine was used to anesthetize the area over the right femoral artery. A 5-Qatari hemostasis sheath was placed in the right femoral artery using a modified Seldinger technique. Selective coronary angiography of the right and left coronary arteries was performed using the standard technique. A 5-Qatari angled pigtail catheter was used to perform single plane left ventriculography. Pull-back revealed no gradient. At the conclusion of the procedure, a right iliac angiogram was performed by hand injection of 5-6 ml of contrast through the hemostasis sheath, and, subsequently, Angio-Seal kit was used to obtain hemostasis. RESULTS- LV is 140/12. AO is 140/70. Right iliac angiography- Right iliac angiography was performed by hand injection of 5-6 ml of contrast through the hemostasis sheath and demonstrates no disease. Single plane left ventriculography demonstrates normal left ventricular wall motion and function with an EF of 57%. No MR. CORONARY ANGIOGRAPHY- The left main is near-normal. The LAD is mildly tortuous and normal. The circumflex is mildly tortuous and normal. The right coronary artery is dominant, tortuous and normal. IMPRESSION- 1. Tortuous coronary arteries with no disease. 2. Normal LV function. PLAN- Evaluate for noncardiac causes of chest pain as an outpatient. CC- Dr. Crump and Dr. Froilan Vaca. Stereoptic Projection Topographer- LAURIE Thomas Physician- KRISTOPHER CRUMP MD Released Date Time- 12/27/08 1354 us Kristopher Crump MD [facility] STAR CARD HISTOR ICAL Final Result * CT HEAD PROCESS MACHINE OPERATOR GC (10/30/2008 4:40 PM EDT) Anatomical Region Laterality Modality Other 10/30/2008 4:40 PM EDT Narrative 10/30/2008 7:[address] head without contrast 10/30/2008 at 1719 hours Clinical history- Headaches. Dizziness. Helical CT images of the brain were obtained at 5 mm increments without the administration of IV contrast. The ventricular system is within normal limits. No mass effect or extra-axial collection is demonstrated. No areas of abnormal brain attenuation are identified. Impression- Normal. Stereoptic Projection Topographer- CHANO Thomas Physician- LIZZIE KEENAN M.D. Released Date Time- 10/30/081957 Procedure Note Maulik Keenan - 09/26/2009 CT head without contrast 10/30/2008 at 1719 hours Clinical history- Headaches. Dizziness. Helical CT images of the brain were obtained at 5 mm increments without the administration of IV contrast. The ventricular system is within normal limits. No mass effect or extra-axial collection is demonstrated. No areas of abnormal brain attenuation are identified. Impression- Normal. Stereoptic Projection Topographer- CHANO MONTGOMERY Reading Physician- LIZZIE KEEANN M.D. Released Date Time- 10/30/081957 us Viral Cornejo V, DO IMG SE STAR RAD HISTORICAL Fi nal Result * MM DIG DIAG ADIS PANEL W/CAD GC (10/17/2008 8:54 AM EDT) Anatomical Region Laterality Modality Other 10/17/2008 8:54 AM EDT Narrative 10/17/2008 1:29 PM EDT Procedure-GC MM DIG DIAG ADSI PANEL W/CAD GC MM DIGITAL DIAG BILAT PANEL Bilateral CC and MLO view(s) were taken. BILATERAL DIAGNOSTIC MAMMOGRAM WITH CAD. COMPARISONS- 10/03/07 diagnostic bilateral mammograms 03/23/07 and screening mammogram 03/03/06. INDICATION- Diffuse bilateral breast pain, prior breast reduction. IMAGES OBTAINED- Standard CC and MLO bilateral views. FINDINGS- Breast tissue is almost entirely fat. A 6 mm benign density in mid posterior central breast is unchanged and corresponds to intramammary lymph node. Tiny bilateral coarse and punctate calcifications within medial and inferior aspects of both breasts are unchanged. A larger coarse calcification is in posterior medial left lower quadrant is also stable. No new concerning microcalcifications. No architectural distortion or masslike lesions. Patient has no focal pinpoint area of pain. IMPRESSION- Benign finding (XAF-Kohdimia-4) Annual screening mammogram recommended. RECOMMENDATION- Routine screening mammogram in 1 year. * The patient with a palpable abnormality, unexplained by breast imaging, should be managed on clinical basis by the attending physician. * Breast imaging has a false negative rate of 15%. * The patient was notified by mail of the results of this examination. The mammogram was reviewed by a Radiologist and CAD. Stereoptic Projection Topographer- MARY ANN YADAV Reading Physician- DELLA OROZCO MD. Released Date Time- 10/17/08 1627 Procedure Note Della Orozco - 09/26/2009 Procedure-GC MM DIG DIAG ADIS PANEL W/CAD GC MM DIGITAL DIAG BILAT PANEL Bilateral CC and MLO view(s) were taken. BILATERAL DIAGNOSTIC MAMMOGRAM WITH CAD. COMPARISONS- 10/03/07 diagnostic bilateral mammograms 03/23/07 and screening mammogram 03/03/06. INDICATION- Diffuse bilateral breast pain, prior breast reduction. IMAGES OBTAINED- Standard CC and MLO bilateral views. FINDINGS- Breast tissue is almost entirely fat. A 6 mm benign density in mid posterior central breast is unchanged and corresponds to intramammary lymph node. Tiny bilateral coarse and punctate calcifications within medial and inferior aspects of both breasts are unchanged. A larger coarse calcification is in posterior medial left lower quadrant is also stable. No new concerning microcalcifications. No architectural distortion or masslike lesions. Patient has no focal pinpoint area of pain. IMPRESSION- Benign finding (TXZ-[id number]-0) Annual screening mammogram recommended. RECOMMENDATION- Routine screening mammogram in 1 year. * The patient with a palpable abnormality, unexplained by breast imaging, should be managed on clinical basis by the attending physician. * Breast imaging has a false negative rate of 15%. * The patient was notified by mail of the results of this examination. The mammogram was reviewed by a Radiologist and CAD. Stereoptic Projection Topographer- MARY ANN YADAV Reading Physician- DELLA OROZCO MD. Released Date Time- 10/17/08 1627 Ar Vaca MD [facility] Final Result * ST PHARM STRESS GC (10/15/2008 12:30 PM EDT) Anatomical Region Laterality Modality Other 10/15/2008 12:3 0 PM EDT Narrative 10/16/2008 9:30 AM EDT Time B/P HR Rhythm Dosage Comments 1 min- 124/90 64 adenosine 2 min- 131/88 85 myoview injected 3 min- 139/99 90 4 min- 127/95 97 5 min- 6 min- 7 min- 8 min- 9 min- 10 min- INTERPRETATION- 1. No ST changes. 2. See nuclear report. 3. Adenosine protocol. Ebony Villavicencio 10-15-08 Stereoptic Projection Topographer- ISMAEL Thomas Physician- KRISTOPHER CRUMP MD Released Date Time- 10/16/08 0931 Procedure Note Kristopher Crump - 09/26/2009 Time B/P HR Rhythm Dosage Comments 1 min- 124/90 64 adenosine 2 min- 131/88 85 myoview injected 3 min- 139/99 90 4 min- 127/95 97 5 min- 6 min- 7 min- 8 min- 9 min- 10 min- INTERPRETATION- 1. No ST changes. 2. See nuclear report. 3. Adenosine protocol. Ebony Villavicencio 10-15-08 Stereoptic Projection Topographer- ISMAEL Thomas Physician- KRISTOPHER CRUMP MD Released Date Time- 10/16/08 0931 us Kristopher Crump MD [facility] STAR CARD HISTOR ICAL Final Result * EC ECHO COMPLETE PANEL GC (10/11/2008 11:31 AM EDT) Anatomical Region Laterality Modality Other 10/11/2008 11:3 1 AM EDT Narrative 10/15/2008 2:05 PM EDT RECORDED MEASUREMENTS (cm) Normal Values Left Ventricular Internal Dimension 4.0/2.3 3.5-5.7 4.7 mean Right Ventricular Dimension 0.9-2.6 1.5 mean Interventricular Septum Thickness 1.5 0.6-1.1 0.9 mean Left Ventricular Posterior Wall Thickness 1.3 0.6-1.1 0.9 mean Left Atrial Dimension 3.7 1.9-4.0 2.9 mean Aortic Root 3.6 1.0-3.7 2.7 mean Aortic Cusp Separation 1.5-2.6 1.9 mean COMMENTS- 1. This is a technically difficult echocardiographic study with very poor acoustic windows. 2. There is mild to moderate concentric LVH with what appears to be preserved LV function. Would estimate the EF at 60% without wall motion abnormalities seen. However, would not rely on the study to exclude wall motion abnormalities because of technical limitations. 3. The left atrium appears prominent to mildly enlarged. 4. The right atrium appears in the upper limits of normal with respect to size. 5. The mitral valve is without evidence of mitral stenosis of insufficiency. 6. The aortic root measures within normal limits. 7. The aortic valve is without evidence of aortic stenosis or insufficiency. 8. The right ventricle and tricuspid valves are within normal limits. 9. There is no pericardial effusion. Ebony Villavicencio. 10-15-08 Stereoptic Projection Topographer- ISMAEL HENRY Reading Physician- KRISTOPHER CRUMP MD Released Date Time- 10/15/08 1549 Procedure Note Kristopher Crump - 09/26/2009 RECORDED MEASUREMENTS (cm) Normal Values Left Ventricular Internal Dimension 4.0/2.3 3.5-5.7 4.7 mean Right Ventricular Dimension 0.9-2.6 1.5 mean Interventricular Septum Thickness 1.5 0.6-1.1 0.9 mean Left Ventricular Posterior Wall Thickness 1.3 0.6-1.1 0.9 mean Left Atrial Dimension 3.7 1.9-4.0 2.9 mean Aortic Root 3.6 1.0-3.7 2.7 mean Aortic Cusp Separation 1.5-2.6 1.9 mean COMMENTS- 1. This is a technically difficult echocardiographic study with very poor acoustic windows. 2. There is mild to moderate concentric LVH with what appears to be preserved LV function. Would estimate the EF at 60% without wall motion abnormalities seen. However, would not rely on the study to exclude wall motion abnormalities because of technical limitations. 3. The left atrium appears prominent to mildly enlarged. 4. The right atrium appears in the upper limits of normal with respect to size. 5. The mitral valve is without evidence of mitral stenosis of insufficiency. 6. The aortic root measures within normal limits. 7. The aortic valve is without evidence of aortic stenosis or insufficiency. 8. The right ventricle and tricuspid valves are within normal limits. 9. There is no pericardial effusion. Ebony Villavicencio. 10-15-08 Stereoptic Projection Topographer- ISMAEL HENRY Reading Physician- KRISTOPHER CRUMP MD Released Date Time- 10/15/08 1549 us Kristopher Crump MD [facility] STAR CARD HISTOR ICAL Final Result * NM NUCLEAR CARD PROC PROCESS MACHINE OPERATOR GC (10/11/2008 10:51 AM EDT) Anatomical Region Laterality Modality Other 10/11/2008 10:5 1 AM EDT Narrative 10/15/2008 4:11 PM EDT GATED SPECT STRESS MYOCARDIAL PERFUSION EXAM- 1. 30.4 mCi of Cardiolite were injected for rest images on 10/11/2008. 30.2 mCi of Cardiolite were injected for the stress images on 10/15/2008. 2. Stress testing performed by adenosine protocol. 3. On post-adenosine images there is decreased uptake noted in the anterior wall. Compared to rest images, there is more uptake in the anterior wall. This suggests evidence for reversible ischemia in the basal, mid, and distal anterior wall significant territory. 4. There is normal wall motion and segmental wall thickening with end-diastolic volume of 110 mL, end-systolic volume 24 mL with a post- adenosine EF of 78%. Conclusions- 1. There is evidence of adenosine-induced ischemia starting in the basal anterior wall and going to the distal anterior wall. * The normal range for left ventricular ejection fraction determined by MUGA scan is 50-70%. * The normal range for left ventricular ejection fraction determined by SPECT gated myocardial perfusion scan is 45-75%. Stereoptic Projection Topographer- [facility] Reading Physician- KRISTOPHER CRUMP MD Released Date Time- 10/16/08 0908 Procedure Note Kristopher Crump - 09/26/2009 GATED SPECT STRESS MYOCARDIAL PERFUSION EXAM- 1. 30.4 mCi of Cardiolite were injected for rest images on 10/11/2008. 30.2 mCi of Cardiolite were injected for the stress images on 10/15/2008. 2. Stress testing performed by adenosine protocol. 3. On post-adenosine images there is decreased uptake noted in the anterior wall. Compared to rest images, there is more uptake in the anterior wall. This suggests evidence for reversible ischemia in the basal, mid, and distal anterior wall significant territory. 4. There is normal wall motion and segmental wall thickening with end-diastolic volume of 110 mL, end-systolic volume 24 mL with a post- adenosine EF of 78%. Conclusions- 1. There is evidence of adenosine-induced ischemia starting in the basal anterior wall and going to the distal anterior wall. * The normal range for left ventricular ejection fraction determined by MUGA scan is 50-70%. * The normal range for left ventricular ejection fraction determined by SPECT gated myocardial perfusion scan is 45-75%. Stereoptic Projection Topographer- CHANA Morin [facility] Reading Physician- KRISTOPHER CRUMP MD Released Date Time- 10/16/08 0908 Kristopher Crump [facility] Final Result * XR KNEE (04/12/2007 1:15 PM EDT) Anatomical Region Laterality Modality Other 04/12/2007 1:15 PM EDT Narrative 04/12/2007 2:04 PM EDT Right knee - 3 views History- Pain. Findings- There are spurs at the patellofemoral joint. Very small spurs are seen medially and laterally. Impression- No acute findings. Patellofemoral osteoarthritis. Stereoptic Projection Topographer- LAURIE BATISTA Reading Radiologist- DONNA HIGGINS MD Released Date Time- 04/12/07 2113 Procedure Note Donna Higgins - 09/25/2009 Right knee - 3 views History- Pain. Findings- There are spurs at the patellofemoral joint. Very small spurs are seen medially and laterally. Impression- No acute findings. Patellofemoral osteoarthritis. Stereoptic Projection Topographer- LAURIE BATISTA Reading Radiologist- DONNA HIGGINS MD Released Date Time- 04/12/072112 Ar Vaca MD [facility] Final Result * MM MAMMO DIAG BILATERAL GC (03/23/2007 8:35 AM EDT) Anatomical Region Laterality Modality Other 03/23/2007 8:35 AM EDT Narrative 03/24/2007 12:59 PM EDT Procedure-GC MM MAMMO DIAG BILATERAL GC MM Mammo Diag Bilateral Bilateral CC and MLO view(s) were taken. Prior study comparison- March 03, 2006, bilateral mammogram diagnostic. There are scattered fibroglandular densities. There is a benign-appearing less than 1 cm equal oval density with well-defined margins in the right breast 9 o'clock position. No significant changes when compared with prior studies. IMPRESSION- Probably benign (GXY-Vbjslmcf-1) RECOMMENDATION- Routine screening mammogram in 6 months. * The patient with a palpable abnormality, unexplained by breast imaging, should be managed on clinical basis by the attending physician. * Breast imaging has a false negative rate of 15%. * The patient was notified by mail of the results of this examination. The mammogram was reviewed by a Radiologist and CAD. Stereoptic Projection Topographer- GRZEGORZ GALLOWAY Reading Radiologist- ROBERT GIRON MD Released Date Time- 03/24/07 1454 Procedure Note Robert Giron III - 09/25/2009 Procedure-GC MM MAMMO DIAG BILATERAL GC MM Mammo Diag Bilateral Bilateral CC and MLO view(s) were taken. Prior study comparison- March 03, 2006, bilateral mammogram diagnostic. There are scattered fibroglandular densities. There is a benign-appearing less than 1 cm equal oval density with well-defined margins in the right breast 9 o'clock position. No significant changes when compared with prior studies. IMPRESSION- Probably benign ([id number]-[id number]-8) RECOMMENDATION- Routine screening mammogram in 6 months. * The patient with a palpable abnormality, unexplained by breast imaging, should be managed on clinical basis by the attending physician. * Breast imaging has a false negative rate of 15%. * The patient was notified by mail of the results of this examination. The mammogram was reviewed by a Radiologist and CAD. Stereoptic Projection Topographer- GRZEGORZ Thomas Radiologist- ROBERT GIRON MD Released Date Time- 03/24/07 1454 Ar Vaca MD [facility] STAR RAD HISTORI [place] Final Result * CT ABD/PELVIS PROCESS MACHINE OPERATOR (09/15/2006 9:15 AM EST) Only the most recent of2 resultswithin the time period is included. Anatomical Region Laterality Modality Other 09/15/2006 9:15 AM EST Narrative 09/15/2006 10:[address] scan of the abdomen and pelvis with contrast, 09/15/06 at 09-21 hours. Clinical history- Severe right-sided abdominal pain. Comparison- 08/07/05. There is mild diffuse low attenuation of the head of the hepatic parenchyma. There are clips within the hepatic hilum from previous cholecystectomy. Small low attenuation structure present within the left kidney is stable when compared to the previous exam and represents a simple cyst. Kidneys, adrenal glands, spleen and pancreas are otherwise normal and stable. Opacified small bowel loops are normal. The patient is status post hysterectomy. Limitation evaluation of the lung bases are unremarkable. Impression- Normal CT scan of the abdomen and pelvis. Stereoptic Projection Topographer- GRZEGORZ Thomas Radiologist- LIZZIE KEENAN M.D. Released Date Time- 09/15/061711 Procedure Note Maulik Keenan - 09/25/2009 CT scan of the abdomen and pelvis with contrast, 09/15/06 at 09-21 hours. Clinical history- Severe right-sided abdominal pain. Comparison- 08/07/05. There is mild diffuse low attenuation of the head of the hepatic parenchyma. There are clips within the hepatic hilum from previous cholecystectomy. Small low attenuation structure present within the left kidney is stable when compared to the previous exam and represents a simple cyst. Kidneys, adrenal glands, spleen and pancreas are otherwise normal and stable. Opacified small bowel loops are normal. The patient is status post hysterectomy. Limitation evaluation of the lung bases are unremarkable. Impression- Normal CT scan of the abdomen and pelvis. Stereoptic Projection Topographer- GRZEGORZ Thomas Radiologist- LIZZIE KEENAN M.D. Released Date Time- 09/15/061711 us Ar Vaca MD [facility] Final Result * FL STOMACH-SMALL BOWEL PROCESS MACHINE OPERATOR (09/08/2006 8:05 AM EST) Anatomical Region Laterality Modality Other 09/08/2006 8:05 AM EST Narrative 09/08/2006 11:30 AM EST Upper GI with small bowel follow through, 09/08/06. History- Right upper quadrant pain. Single contrast study is performed. The patient swallows normally. The esophagus is unremarkable. There is a small sliding hiatal hernia. No reflux elicited. The stomach, duodenal bulb and duodenal sweep are normal. There is normal transit of contrast through the small bowel to the terminal ileum and colon. The small bowel loops are normal. No stricture, mass or abnormal fold thickening seen. Impression- Small sliding hiatal hernia, otherwise unremarkable upper GI and small bowel follow through. Stereoptic Projection Topographer- GRZEGORZ Thomas Radiologist- CHAN HILL MD Released Date Time- 09/08/06 1404 Procedure Note Chan Hill - 09/25/2009 Upper GI with small bowel follow through, 09/08/06. History- Right upper quadrant pain. Single contrast study is performed. The patient swallows normally. The esophagus is unremarkable. There is a small sliding hiatal hernia. No reflux elicited. The stomach, duodenal bulb and duodenal sweep are normal. There is normal transit of contrast through the small bowel to the terminal ileum and colon. The small bowel loops are normal. No stricture, mass or abnormal fold thickening seen. Impression- Small sliding hiatal hernia, otherwise unremarkable upper GI and small bowel follow through. Stereoptic Projection Topographer- GRZEGORZ Thomas Radiologist- CHAN HILL MD Released Date Time- 09/08/06 1404 Ar Vaca MD [facility] Final Result * XR FLAT AND UPRIGHT ABDOMEN (08/17/2006 4:10 PM EST) Anatomical Region Laterality Modality Other 08/17/2006 4:10 PM EST Narrative 08/18/2006 8:11 AM EST Three view abdominal series, 08/17/06 History- Pain and swelling in right abdomen. 1. Right upper quadrant clips compatible with prior cholecystectomy. Innumerable pelvic calcifications, likely representing phleboliths. 2. No free air. No soft tissue masses. Bowel gas pattern unremarkable. Impression- Unremarkable abdominal series. Stereoptic Projection Topographer- RAMONITA Thomas Radiologist- HILARY ELENA MD Released Date Time- 08/18/06 110 Procedure Note Hilary Elena - 09/25/2009 Three view abdominal series, 08/17/06 History- Pain and swelling in right abdomen. 1. Right upper quadrant clips compatible with prior cholecystectomy. Innumerable pelvic calcifications, likely representing phleboliths. 2. No free air. No soft tissue masses. Bowel gas pattern unremarkable. Impression- Unremarkable abdominal series. Stereoptic Projection TopographerMargaux Thomas Radiologist- HILARY ELENA MD Released Date Time- 08/18/06 110 Ar Vaca MD [facility] Final Result * MM MAMMO DIAG BILATERAL (03/03/2006 8:50 AM EDT) Anatomical Region Laterality Modality Other 03/03/2006 8:50 AM EDT Narrative 03/04/2006 10:06 AM EDT Procedure-MM MAMMO DIAG BILATERAL Mammogram Diagnostic Bilateral CC and MLO view(s) were taken. There are scattered fibroglandular densities. There is a benign appearing architectural distortion in the upper inner quadrant of the right breast consistent with post surgical change. No suspicious calcifications. There has been bilateral breast reduction surgery. IMPRESSION- Benign finding ([id number]-[id number]-6) RECOMMENDATION- Routine screening mammogram in 1 year. Manage patient on clinical basis. Images fail to explain clinical findings. * The patient with a palpable abnormality, unexplained by breast imaging, should be managed on clinical basis by the attending physician. * Breast imaging has a false negative rate of 15%. * The patient was notified by mail of the results of this examination. Vangie Thomas Radiologist- TIM CARLOS MD Released Date Time- 03/04/06 1245 Procedure Note Tim Carlos D - 09/25/2009 Procedure-MM MAMMO DIAG BILATERAL Mammogram Diagnostic Bilateral CC and MLO view(s) were taken. There are scattered fibroglandular densities. There is a benign appearing architectural distortion in the upper inner quadrant of the right breast consistent with post surgical change. No suspicious calcifications. There has been bilateral breast reduction surgery. IMPRESSION- Benign finding (LRO-Mgtrisgb-7) RECOMMENDATION- Routine screening mammogram in 1 year. Manage patient on clinical basis. Images fail to explain clinical findings. * The patient with a palpable abnormality, unexplained by breast imaging, should be managed on clinical basis by the attending physician. * Breast imaging has a false negative rate of 15%. * The patient was notified by mail of the results of this examination. Vangie Limon- TIM CARLOS MD Released Date Time- 03/04/06 1245 Ar Vaca MD [facility] Final Result * CT CHEST PROCESS MACHINE OPERATOR (03/01/2006 12:48 PM EDT) Anatomical Region Laterality Modality Other 03/01/2006 12:4 8 PM EDT Narrative 03/01/2006 2:35 PM EDT BED 2 CT angiogram of the chest. History- Chest pain. Shortness of breath. Possible pulmonary embolism. Technical factors- 100 cc of Optiray 350 was administered intravenously. Spiral scans performed through the chest. Coronal and sagittal reconstructions were performed. Findings- The pulmonary arteries are well opacified. There are filling defects suspect for emboli. Tracheobronchial tree appears patent. The lungs are clear. There is a tiny 2 mm size non-calcified nodule in the right upper lobe. This most likely represents a small granuloma. There is no mediastinal or hilar mass or adenopathy. There is no evidence of aortic dissection. Impression- Unremarkable CT angiogram of the chest. Stereoptic Projection Topographer- GRZEGORZ GARCIA Reading Radiologist- ROBERT GIRON MD Released Date Time- 03/01/06 1835 Procedure Note Robert Giron III - 09/25/[address] angiogram of the chest. History- Chest pain. Shortness of breath. Possible pulmonary embolism. Technical factors- 100 cc of Optiray 350 was administered intravenously. Spiral scans performed through the chest. Coronal and sagittal reconstructions were performed. Findings- The pulmonary arteries are well opacified. There are filling defects suspect for emboli. Tracheobronchial tree appears patent. The lungs are clear. There is a tiny 2 mm size non-calcified nodule in the right upper lobe. This most likely represents a small granuloma. There is no mediastinal or hilar mass or adenopathy. There is no evidence of aortic dissection. Impression- Unremarkable CT angiogram of the chest. Stereoptic Projection Topographer- GRZEGORZ Thomas Radiologist- ROBERT GIRON MD Released Date Time- 03/01/06 1835 Dung العلي MD [facility] HISTORICAL Final Result * XR CHEST PORTABLE (03/01/2006 11:30 AM EDT) Anatomical Region Laterality Modality Other 03/01/2006 11:3 0 AM EDT Narrative 03/01/2006 12:39 PM EDT RM 2 Portable chest 03/01/2006 at 11-31 a.m. COMPARISON- None currently available. HISTORY- Chest pain. Lungs are clear. Cardiomediastinal silhouette is within normal limits. IMPRESSION- No acute disease. Stereoptic Projection Topographer- JENNIFER Limon- CHAN HILL MD Released Date Time- 03/01/06 163 Procedure Note Chan Hill - 09/25/2009 2 Portable chest 03/01/2006 at 11-31 a.m. COMPARISON- None currently available. HISTORY- Chest pain. Lungs are clear. Cardiomediastinal silhouette is within normal limits. IMPRESSION- No acute disease. Stereoptic Projection Topographerluh HILL MD Released Date Time- 03/01/061636 us Dung العلي MD [facility] HISTORICAL Final Result * US LIVER-HEPATIC SONOGRAPHY (11/19/2005 9:05 AM EDT) Anatomical Region Laterality Modality Other 11/19/2005 9:05 AM EDT Narrative 11/19/2005 10:55 AM EDT November 19, 2005. Ultrasound right upper quadrant. History- Pain and nausea. Prior cholecystectomy. The common duct measures 4 mm in diameter. Intrahepatic bile ducts are not dilated. There is increased liver echogenicity consistent with fatty infiltration. No focal liver abnormality is seen. Limited images of the pancreas and right kidney appear normal. Conclusion- Fatty infiltration of the liver. Status post cholecystectomy. Stereoptic Projection Topographer- KATHYA Thomas Radiologist- TIM CARLOS MD Released Date Time- 11/19/051619 Procedure Note Tim Carlos - 09/25/2009 November 19, 2005. Ultrasound right upper quadrant. History- Pain and nausea. Prior cholecystectomy. The common duct measures 4 mm in diameter. Intrahepatic bile ducts are not dilated. There is increased liver echogenicity consistent with fatty infiltration. No focal liver abnormality is seen. Limited images of the pancreas and right kidney appear normal. Conclusion- Fatty infiltration of the liver. Status post cholecystectomy. Stereoptic Projection TopographerMargaux BENNETT Reading Radiologist- TIM CARLOS MD Released Date Time- 11/19/051619 [facility] Final Result * FL BARIUM SWALLOW (10/13/2005 9:57 AM EST) Anatomical Region Laterality Modality Other 10/13/2005 9:57 AM EST Narrative 10/13/2005 11:42 AM EST PT IN WAITING AREA Barium swallow 10/13/2005- History- Abdominal pain, 789.0. No filling defects or areas of mucosal destruction in the esophagus. Small, sliding-type hiatal hernia. No spontaneous gastroesophageal reflux. Mild esophageal dysmotility with tertiary contractions. Opinion- Mild esophageal dysmotility with tertiary contractions. Small, sliding-type hiatal hernia. Stereoptic Projection Topographer- RAMONITA COLE MD Released Date Time- 10/13/05 1249 Procedure Note Ascencion Cole W - 09/24/2009 PT IN WAITING AREA Barium swallow 10/13/2005- History- Abdominal pain, 789.0. No filling defects or areas of mucosal destruction in the esophagus. Small, sliding-type hiatal hernia. No spontaneous gastroesophageal reflux. Mild esophageal dysmotility with tertiary contractions. Opinion- Mild esophageal dysmotility with tertiary contractions. Small, sliding-type hiatal hernia. Stereoptic Projection Topographerluh COLE MD Released Date Time- 10/13/05 [address] [facility] Final Result * FL SMALL BOWEL (10/10/2005 8:00 AM EST) Anatomical Region Laterality Modality Other 10/10/2005 8:00 AM EST Narrative 10/10/2005 1:14 PM EST -PT [facility] Small bowel examination, 10/10/2005 Preliminary film of the abdomen shows a moderate amount of stool in the colon which is most prominent in the right hemicolon. Barium traverses the small bowel in 2 hours. No filling defects or areas of mucosal destruction are seen in the small bowel. Terminal ileum normal. Opinion- Normal. Stereoptic Projection Topographer- RAMONITA Thomas Radiologist- ASCENCION COLE MD Released Date Time- 10/10/05 1424 Procedure Note Ascencion Cole W - 09/24/2009 -PT [facility] Small bowel examination, 10/10/2005 Preliminary film of the abdomen shows a moderate amount of stool in the colon which is most prominent in the right hemicolon. Barium traverses the small bowel in 2 hours. No filling defects or areas of mucosal destruction are seen in the small bowel. Terminal ileum normal. Opinion- Normal. Stereoptic Projection Topographer- RAMONITA Thomas Radiologist- ASCENCION COLE MD Released Date Time- 10/10/05 1424 Ar Vaca MD [facility] [employer] HISTORI DELIA Final Result * XR ANKLE (03/31/2005 10:34 AM EDT) Anatomical Region Laterality Modality Other 03/31/2005 10:3 4 AM EDT Narrative 04/02/2005 10:31 AM EDT Right ankle, 03/31/05 Indication- Pain. Findings- Three views of the right ankle demonstrate a plantar calcaneal spur. Degenerative changes tip of the right fibula. No fractures, dislocations, joint effusion, or significant soft tissue swelling. Stereoptic Projection Topographer- RAMONITA Thomas Radiologist- DISHA CORDERO M.D. Released Date Time- 04/02/05 1031 Procedure Note Disha Cordero - 09/24/2009 Right ankle, 03/31/05 Indication- Pain. Findings- Three views of the right ankle demonstrate a plantar calcaneal spur. Degenerative changes tip of the right fibula. No fractures, dislocations, joint effusion, or significant soft tissue swelling. Stereoptic Projection Topographer- RAMONITA Thomas Radiologist- DISHA CORDERO M.D. Released Date Time- 04/02/05 1031 Ar Vaca MD [facility] Final Result * MM MAMMO SCREEN W/CAD PANEL. (01/29/2005 10:16 AM EDT) Anatomical Region Laterality Modality Other 01/29/2005 10:1 6 AM EDT Narrative 02/01/2005 5:06 PM EDT Procedure-MM MAMMO SCREEN W/CAD PANEL. Screening CAD Mammogram Bilateral CC and MLO view(s) were taken. There are scattered fibroglandular densities. Benign skin calcifications. No significant changes when compared with prior studies. IMPRESSION- No radiographic evidence of malignancy ([id number]) RECOMMENDATION- Routine screening mammogram in 1 year. * The patient with a palpable abnormality, unexplained by breast imaging, should be managed on clinical basis by the attending physician. * Breast imaging has a false negative rate of 15%. * The patient was notified by mail of the results of this examination. The mammogram was reviewed by a Radiologist and CAD. Florinda- MARY ANN Limon- LIZZIE KEENAN M.D. Released Date Time02/01/051705 Procedure Note Maulik Keenan - 09/24/2009 Procedure-MM MAMMO SCREEN W/CAD PANEL. Screening CAD Mammogram Bilateral CC and MLO view(s) were taken. There are scattered fibroglandular densities. Benign skin calcifications. No significant changes when compared with prior studies. IMPRESSION- No radiographic evidence of malignancy ([id number]) RECOMMENDATION- Routine screening mammogram in 1 year. * The patient with a palpable abnormality, unexplained by breast imaging, should be managed on clinical basis by the attending physician. * Breast imaging has a false negative rate of 15%. * The patient was notified by mail of the results of this examination. The mammogram was reviewed by a Radiologist and CAD. Vangie Limon- LIZZIE KEENAN M.D. Released Date Time02/01/051705 Ar Vaca MD [facility] Final Result Visit Diagnoses Diagnosis Start Date Nervousness(799.21) Nervousness 02/19/2010 Nausea with vomiting 02/19/2010 Chest pain, unspecified 02/19/2010 Labyrinthitis, unspecified 02/19/2010 Esophageal reflux 02/19/2010 Unspecified essential hypertension 02/19/2010 Unspecified hypothyroidism 02/19/2010 HTN (hypertension) Unspecified essential hypertension 03/13/2010 Hypothyroid Unspecified hypothyroidism 03/13/2010 DDD (degenerative disc disease), lumbar Degeneration of lumbar or lumbosacral intervertebral disc 03/13/2010 WILLIE (generalized anxiety disorder) Generalized anxiety disorder 03/13/2010 Migraine Migraine, unspecified, without mention of intractable migraine without mention of status migrainosus 03/13/2010 Anxiety Anxiety state, unspecified 03/13/2010 Suicidal ideation 03/23/2010 Overdose Poisoning by unspecified drug or medicinal substance 03/23/2010 Depression Depressive disorder, not elsewhere classified 03/23/2010 Poisoning by benzodiazepine-based tranquilizers(969.4) Poisoning by benzodiazepine-based tranquilizers 03/23/2010 Migraine Migraine, unspecified, without mention of intractable migraine without mention of status migrainosus 04/15/2010 Syncope Syncope and collapse 04/29/2010 Need for prophylactic vaccination and inoculation against influenza 04/29/2010 Unspecified essential hypertension 05/21/2010 Unspecified hypothyroidism 05/21/2010 Unspecified essential hypertension 05/21/2010 Unspecified hypothyroidism 05/21/2010 Syncope Syncope and collapse 05/27/2010 Syncope Syncope and collapse 05/27/2010 Syncope Syncope and collapse 05/27/2010 Migraine Migraine, unspecified, without mention of intractable migraine without mention of status migrainosus 07/16/2010 Dizziness Dizziness and giddiness 07/16/2010 Fibromyalgia Mylagia and myositis, unspecified 07/16/2010 Acute sinusitis Acute sinusitis, unspecified 07/16/2010 Unspecified essential hypertension 08/14/2010 Unspecified hypothyroidism 08/14/2010 Migraine Migraine, unspecified, without mention of intractable migraine without mention of status migrainosus 08/14/2010 Fibromyalgia Mylagia and myositis, unspecified 08/14/2010 Hypothyroid Unspecified hypothyroidism 08/14/2010 Esophageal reflux 08/14/2010 Unspecified essential hypertension 08/14/2010 Acute sinusitis Acute sinusitis, unspecified 08/14/2010 Migraine Migraine, unspecified, without mention of intractable migraine without mention of status migrainosus 09/12/2010 Fibromyalgia Mylagia and myositis, unspecified 09/12/2010 Anxiety Anxiety state, unspecified 09/12/2010 Nausea with vomiting 09/12/2010 Migraine Migraine, unspecified, without mention of intractable migraine without mention of status migrainosus 09/30/2010 Fibromyalgia Mylagia and myositis, unspecified 09/30/2010 Migraine Migraine, unspecified, without mention of intractable migraine without mention of status migrainosus 10/08/2010 Fibromyalgia Mylagia and myositis, unspecified 10/08/2010 Anxiety Anxiety state, unspecified 10/08/2010 Screening colonoscopy Special screening for malignant neoplasms, colon 10/08/2010 Height loss Loss of height 10/08/2010 Head injury Head injury, unspecified 10/28/2010 Sprain of neck 10/28/2010 Contusion of unspecified site 10/28/2010 Headache(784.0) Headache 10/28/2010 Foot pain Pain in limb 11/05/2010 Foot pain Pain in limb 11/05/2010 Migraine Migraine, unspecified, without mention of intractable migraine without mention of status migrainosus 11/05/2010 Fibromyalgia Mylagia and myositis, unspecified 11/05/2010 Anxiety Anxiety state, unspecified 11/05/2010 Migraine Migraine, unspecified, without mention of intractable migraine without mention of status migrainosus 11/05/2010 Fibromyalgia Mylagia and myositis, unspecified 11/05/2010 Anxiety Anxiety state, unspecified 11/05/2010 Loss of height 11/05/2010 Symptomatic menopausal or female climacteric states 11/05/2010 Chest pain Chest pain, unspecified 11/29/2010 Post concussive syndrome Postconcussion syndrome 11/29/2010 Post-traumatic headache, unspecified 11/29/2010 Migraine Migraine, unspecified, without mention of intractable migraine without mention of status migrainosus 12/02/2010 Fibromyalgia Mylagia and myositis, unspecified 12/02/2010 Anxiety Anxiety state, unspecified 12/02/2010 Nausea with vomiting 12/02/2010 Acute pharyngitis 12/02/2010 Acute sinusitis Acute sinusitis, unspecified 12/02/2010 Rash Rash and other nonspecific skin eruption 12/02/2010 Unspecified labyrinthitis Labyrinthitis, unspecified 12/25/2010 Unspecified labyrinthitis Labyrinthitis, unspecified 12/25/2010 FHx: osteopenia Family history of other musculoskeletal diseases 12/25/2010 ZENG (headache) Headache 12/25/2010 Unspecified labyrinthitis Labyrinthitis, unspecified 12/29/2010 Migraine Migraine, unspecified, without mention of intractable migraine without mention of status migrainosus 01/01/2011 Fibromyalgia Mylagia and myositis, unspecified 01/01/2011 Migraine Migraine, unspecified, without mention of intractable migraine without mention of status migrainosus 01/02/2011 Fibromyalgia Mylagia and myositis, unspecified 01/02/2011 Abdominal pain, other specified site 01/02/2011 Unspecified chest pain Chest pain, unspecified 01/28/2011 Migraine Migraine, unspecified, without mention of intractable migraine without mention of status migrainosus 01/29/2011 Fibromyalgia Mylagia and myositis, unspecified 01/29/2011 Nausea with vomiting 01/29/2011 Hypothyroid Unspecified hypothyroidism 01/29/2011 Dependent edema Edema 01/29/2011 WILLIE (generalized anxiety disorder) Generalized anxiety disorder 02/26/2011 Migraine Migraine, unspecified, without mention of intractable migraine without mention of status migrainosus 02/27/2011 Fibromyalgia Mylagia and myositis, unspecified 02/27/2011 Acute sinusitis Acute sinusitis, unspecified 03/27/2011 Nausea & vomiting Nausea with vomiting 03/27/2011 Weight loss Loss of weight 03/27/2011 Migraine Migraine, unspecified, without mention of intractable migraine without mention of status migrainosus 03/27/2011 Fibromyalgia Mylagia and myositis, unspecified 03/27/2011 WILLIE (generalized anxiety disorder) Generalized anxiety disorder 03/27/2011 Acute sinusitis Acute sinusitis, unspecified 03/27/2011 Weight loss Loss of weight 03/27/2011 Nausea & vomiting Nausea with vomiting 03/27/2011 Nausea with vomiting 03/27/2011 Migraine Migraine, unspecified, without mention of intractable migraine without mention of status migrainosus 04/22/2011 Fibromyalgia Mylagia and myositis, unspecified 04/22/2011 WILLIE (generalized anxiety disorder) Generalized anxiety disorder 04/22/2011 Gout Gout, unspecified 04/22/2011 Migraine Migraine, unspecified, without mention of intractable migraine without mention of status migrainosus 04/27/2011 Fibromyalgia Mylagia and myositis, unspecified 04/27/2011 Gout Gout, unspecified 05/11/2011 Abdominal pain, generalized 05/11/2011 Abdominal pain Abdominal pain, unspecified site 05/15/2011 Nausea with vomiting 05/15/2011 Urgency of urination 05/15/2011 Needs flu shot Need for prophylactic vaccination and inoculation against influenza 05/15/2011 Abdominal pain Abdominal pain, unspecified site 05/15/2011 Weight loss, unintentional Loss of weight 05/15/2011 Nausea with vomiting 05/15/2011 Other screening mammogram 05/25/2011 Migraine Migraine, unspecified, without mention of intractable migraine without mention of status migrainosus 05/26/2011 Fibromyalgia Mylagia and myositis, unspecified 05/26/2011 WILLIE (generalized anxiety disorder) Generalized anxiety disorder 05/26/2011 Dizziness Dizziness and giddiness 05/26/2011 Migraine Migraine, unspecified, without mention of intractable migraine without mention of status migrainosus 06/25/2011 Fibromyalgia Mylagia and myositis, unspecified 06/25/2011 Left knee DJD Osteoarthrosis, unspecified whether generalized or localized, lower leg 06/25/2011 Recurrent sinusitis Unspecified sinusitis (chronic) 06/25/2011 Recurrent sinusitis Unspecified sinusitis (chronic) 07/01/2011 Gout Gout, unspecified 07/24/2011 Hypothyroid Unspecified hypothyroidism 07/24/2011 Abdominal pain Abdominal pain, unspecified site 07/24/2011 Migraine Migraine, unspecified, without mention of intractable migraine without mention of status migrainosus 07/24/2011 Fibromyalgia Mylagia and myositis, unspecified 07/24/2011 Left knee DJD Osteoarthrosis, unspecified whether generalized or localized, lower leg 07/24/2011 Migraine Migraine, unspecified, without mention of intractable migraine without mention of status migrainosus 08/27/2011 Migraine Migraine, unspecified, without mention of intractable migraine without mention of status migrainosus 08/27/2011 Fibromyalgia Mylagia and myositis, unspecified 08/27/2011 Left knee DJD Osteoarthrosis, unspecified whether generalized or localized, lower leg 08/27/2011 WILLIE (generalized anxiety disorder) Generalized anxiety disorder 08/27/2011 Fibromyalgia Mylagia and myositis, unspecified 09/22/2011 WILLIE (generalized anxiety disorder) Generalized anxiety disorder 09/22/2011 Obesity Obesity, unspecified 09/22/2011 Closed head injury Head injury, unspecified 09/22/2011 Left knee DJD Osteoarthrosis, unspecified whether generalized or localized, lower leg 09/22/2011 Chest wall contusion Contusion of chest wall 09/22/2011 ZENG (headache) Headache 09/22/2011 Thrush Candidiasis of mouth 10/16/2011 Fibromyalgia Mylagia and myositis, unspecified 10/20/2011 Left knee DJD Osteoarthrosis, unspecified whether generalized or localized, lower leg 10/20/2011 Fibromyalgia Mylagia and myositis, unspecified 10/20/2011 Left knee DJD Osteoarthrosis, unspecified whether generalized or localized, lower leg 10/20/2011 ZENG (headache) Headache 10/20/2011 Migraine Migraine, unspecified, without mention of intractable migraine without mention of status migrainosus 10/23/2011 Degenerative disc disease Degeneration of intervertebral disc, site unspecified 11/02/2011 Lumbago 11/02/2011 Degeneration of lumbar or lumbosacral intervertebral disc 11/02/2011 Lumbago 11/05/2011 Lumbago 11/26/2011 Esophageal reflux 12/21/2011 WILLIE (generalized anxiety disorder) Generalized anxiety disorder 12/21/2011 Unspecified essential hypertension 12/21/2011 Unspecified hypothyroidism 12/21/2011 Health maintenance examination Unspecified general medical examination 12/21/2011 Abdominal pain, right upper quadrant 03/02/2012 Type II or unspecified type diabetes mellitus without mention of complication, not stated as uncontrolled 03/02/2012 UTI (lower urinary tract infection) Urinary tract infection, site not specified 03/08/2012 Vaginal yeast infection Candidiasis of vulva and vagina 03/08/2012 RUQ pain Abdominal pain, right upper quadrant 03/22/2012 Esophageal reflux 03/23/2012 Hypothyroid Unspecified hypothyroidism 03/23/2012 RUQ pain Abdominal pain, right upper quadrant 03/24/2012 Unspecified essential hypertension 03/25/2012 Perimenopausal symptoms Symptomatic menopausal or female climacteric states 03/25/2012 Hyperglycemia Other abnormal glucose 03/25/2012 Hypothyroid Unspecified hypothyroidism 03/25/2012 Vitamin D deficiency Unspecified vitamin D deficiency 03/25/2012 Abnormal laboratory test result Other abnormal clinical finding 03/25/2012 Hypothyroid Unspecified hypothyroidism 03/25/2012 WILLIE (generalized anxiety disorder) Generalized anxiety disorder 03/25/2012 Flu vaccine need Need for prophylactic vaccination and inoculation against influenza 03/25/2012 Unspecified essential hypertension 03/25/2012 Vitamin D deficiency Unspecified vitamin D deficiency 03/25/2012 Hyperglycemia Other abnormal glucose 03/25/2012 Perimenopausal symptoms Symptomatic menopausal or female climacteric states 03/25/2012 Abdominal pain Abdominal pain, unspecified site 04/07/2012 Fibromyalgia Mylagia and myositis, unspecified 05/22/2012 WILLIE (generalized anxiety disorder) Generalized anxiety disorder 06/01/2012 Fibromyalgia Mylagia and myositis, unspecified 06/01/2012 Nausea with vomiting 06/01/2012 Encounter for long-term (current) use of other medications 06/01/2012 Acute otitis media, bilateral Unspecified otitis media 08/15/2012 Unspecified essential hypertension 08/15/2012 Seasonal allergies Allergic rhinitis, cause unspecified 08/15/2012 Vaginal yeast infection Candidiasis of vulva and vagina 08/15/2012 Nausea with vomiting 09/13/2012 Flu syndrome Influenza with other respiratory manifestations 09/28/2012 Fever Fever, unspecified 09/28/2012 Esophageal reflux 10/13/2012 Gout Gout, unspecified 10/17/2012 Hypothyroidism Unspecified hypothyroidism 10/20/2012 Hypothyroidism Unspecified hypothyroidism 10/20/2012 DDD (degenerative disc disease) Degeneration of intervertebral disc, site unspecified 10/20/2012 Low back pain Lumbago 10/20/2012 Insomnia Insomnia, unspecified 10/20/2012 Unspecified hypothyroidism 10/26/2012 WILLIE (generalized anxiety disorder) Generalized anxiety disorder 11/07/2012 Unspecified hypothyroidism 11/07/2012 Esophageal reflux 11/15/2012 Unspecified hypothyroidism 11/15/2012 Gout Gout, unspecified 11/15/2012 Fibromyalgia Mylagia and myositis, unspecified 11/15/2012 Unspecified essential hypertension 11/15/2012 Abdominal pain Abdominal pain, unspecified site 11/24/2012 RUQ abdominal pain Abdominal pain, right upper quadrant 11/24/2012 Unspecified hypothyroidism 11/24/2012 Fibromyalgia Mylagia and myositis, unspecified 11/24/2012 WILLIE (generalized anxiety disorder) Generalized anxiety disorder 11/24/2012 Abdominal pain Abdominal pain, unspecified site 11/24/2012 Unspecified hypothyroidism 11/24/2012 RUQ abdominal pain Abdominal pain, right upper quadrant 11/24/2012 UTI (lower urinary tract infection) Urinary tract infection, site not specified 11/24/2012 Vaginal yeast infection Candidiasis of vulva and vagina 11/24/2012 UTI (lower urinary tract infection) Urinary tract infection, site not specified 11/25/2012 Vaginal yeast infection Candidiasis of vulva and vagina 11/25/2012 Unspecified essential hypertension 12/01/2012 Esophageal reflux 12/01/2012 Unspecified hypothyroidism 12/01/2012 Fibromyalgia Mylagia and myositis, unspecified 12/01/2012 Gout Gout, unspecified 12/01/2012 Other abnormal blood chemistry 12/06/2012 Other abnormal blood chemistry 12/06/2012 Dizziness Dizziness and giddiness 12/13/2012 Unspecified hypothyroidism 12/26/2012 Unspecified essential hypertension 01/13/2013 Dysuria 01/13/2013 UTI (lower urinary tract infection) Urinary tract infection, site not specified 01/13/2013 Atypical mole Benign neoplasm of skin, site unspecified 01/13/2013 ZENG (headache) Headache 01/13/2013 Diabetes mellitus type 2, controlled (HCC) Type II or unspecified type diabetes mellitus without mention of complication, not stated as uncontrolled 01/13/2013 Dysuria 01/28/2013 Type II or unspecified type diabetes mellitus without mention of complication, not stated as uncontrolled 01/28/2013 UTI (lower urinary tract infection) Urinary tract infection, site not specified 01/28/2013 Unspecified essential hypertension 01/28/2013 Nausea with vomiting 01/28/2013 Chest pain, unspecified 01/28/2013 Labyrinthitis, unspecified 01/28/2013 Esophageal reflux 01/28/2013 Unspecified hypothyroidism 01/28/2013 Coronary artery spasm Other and unspecified angina pectoris 01/28/2013 Fibromyalgia Mylagia and myositis, unspecified 01/28/2013 Left knee DJD Osteoarthrosis, unspecified whether generalized or localized, lower leg 01/28/2013 WILLIE (generalized anxiety disorder) Generalized anxiety disorder 01/28/2013 Obesity Obesity, unspecified 01/28/2013 ZENG (headache) Headache 01/28/2013 WILLEI (generalized anxiety disorder) Generalized anxiety disorder 02/07/2013 Dizziness Dizziness and giddiness 03/23/2013 Thrush Candidiasis of mouth 04/06/2013 ZENG (headache) Headache 04/18/2013 Dizziness Dizziness and giddiness 04/18/2013 Dizziness Dizziness and giddiness 04/25/2013 Syncopal episodes Syncope and collapse 04/26/2013 Unspecified essential hypertension 04/26/2013 Syncopal episodes Syncope and collapse 04/26/2013 Need for influenza vaccination Need for prophylactic vaccination and inoculation against influenza 04/26/2013 Labyrinthitis, unspecified 04/26/2013 Unspecified essential hypertension 04/26/2013 WILLIE (generalized anxiety disorder) Generalized anxiety disorder 04/26/2013 Dysuria 04/26/2013 UTI (lower urinary tract infection) Urinary tract infection, site not specified 04/26/2013 Gout Gout, unspecified 05/02/2013 Esophageal reflux 05/02/2013 Unspecified hypothyroidism 05/02/2013 Syncopal episodes Syncope and collapse 05/04/2013 Syncopal episodes Syncope and collapse 05/04/2013 Syncopal episodes Syncope and collapse 05/04/2013 Unspecified hypothyroidism 05/10/2013 Syncope Syncope and collapse 05/11/2013 Borderline diabetes mellitus Other abnormal glucose 05/11/2013 Obesity Obesity, unspecified 05/11/2013 Unspecified hypothyroidism 05/12/2013 ZENG (headache) Headache 05/12/2013 Esophageal reflux 05/12/2013 HTN (hypertension) Unspecified essential hypertension 05/15/2013 HTN (hypertension) Unspecified essential hypertension 05/17/2013 Fibromyalgia Mylagia and myositis, unspecified 05/19/2013 WILLIE (generalized anxiety disorder) Generalized anxiety disorder 05/31/2013 Urgency of urination 05/31/2013 DDD (degenerative disc disease) Degeneration of intervertebral disc, site unspecified 05/31/2013 Lumbar strain Sprain of lumbar region 05/31/2013 Sinusitis Unspecified sinusitis (chronic) 05/31/2013 OM (otitis media) Unspecified otitis media 05/31/2013 Foot pain Pain in limb 05/31/2013 Syncope Syncope and collapse 06/19/2013 Type II or unspecified type diabetes mellitus without mention of complication, not stated as uncontrolled 06/19/2013 Unspecified essential hypertension 06/19/2013 Chest pain, unspecified 06/19/2013 DDD (degenerative disc disease) Degeneration of intervertebral disc, site unspecified 06/19/2013 Lumbar strain Sprain of lumbar region 06/19/2013 Syncope Syncope and collapse 06/19/2013 Type II or unspecified type diabetes mellitus without mention of complication, not stated as uncontrolled 06/19/2013 Unspecified essential hypertension 06/19/2013 Chest pain, unspecified 06/19/2013 ZENG (headache) Headache 06/21/2013 WILLIE (generalized anxiety disorder) Generalized anxiety disorder 07/03/2013 HTN (hypertension) Unspecified essential hypertension 07/28/2013 WILLIE (generalized anxiety disorder) Generalized anxiety disorder 08/02/2013 Nausea with vomiting 08/02/2013 Encounter for long-term (current) use of other medications 08/02/2013 Unspecified essential hypertension 08/02/2013 Unspecified hypothyroidism 08/02/2013 Migraine headache Migraine, unspecified, without mention of intractable migraine without mention of status migrainosus 09/08/2013 Migraine, unspecified, without mention of intractable migraine without mention of status migrainosus 09/08/2013 Esophageal reflux 09/28/2013 Heel spur Calcaneal spur 10/15/2013 Calcaneal spur 10/15/2013 Type II or unspecified type diabetes mellitus without mention of complication, not stated as uncontrolled 10/19/2013 Pruritic rash Prurigo 10/19/2013 Unspecified hypothyroidism 10/19/2013 Type II or unspecified type diabetes mellitus without mention of complication, not stated as uncontrolled 10/19/2013 UTI (urinary tract infection) Urinary tract infection, site not specified 10/19/2013 Other screening mammogram 10/19/2013 Pruritic rash Prurigo 10/19/2013 Unspecified hypothyroidism 10/19/2013 Chest pain Chest pain, unspecified 11/12/2013 Chronic pain Other chronic pain 11/12/2013 Chest pain, unspecified 11/12/2013 Acute renal insufficiency Unspecified disorder of kidney and ureter 11/13/2013 Chest pain, unspecified 11/13/2013 Chronic pain Other chronic pain 11/13/2013 Fibromyalgia Mylagia and myositis, unspecified 11/13/2013 Type II or unspecified type diabetes mellitus without mention of complication, not stated as uncontrolled 11/13/2013 Unspecified essential hypertension 11/13/2013 Unspecified hypothyroidism 11/13/2013 Acute renal insufficiency Unspecified disorder of kidney and ureter 11/17/2013 WILLIE (generalized anxiety disorder) Generalized anxiety disorder 11/17/2013 HTN (hypertension) Unspecified essential hypertension 11/17/2013 Acute renal insufficiency Unspecified disorder of kidney and ureter 11/17/2013 Unspecified hypothyroidism 11/17/2013 Fibromyalgia Mylagia and myositis, unspecified 11/17/2013 GERD (gastroesophageal reflux disease) Esophageal reflux 11/17/2013 IBS (irritable bowel syndrome) Irritable bowel syndrome 11/17/2013 Abdominal pain, other specified site 11/17/2013 Dysuria 11/17/2013 UTI (lower urinary tract infection) Urinary tract infection, site not specified 11/17/2013 Type II or unspecified type diabetes mellitus without mention of complication, not stated as uncontrolled 12/27/2013 WILLIE (generalized anxiety disorder) Generalized anxiety disorder 12/27/2013 UTI (urinary tract infection) Urinary tract infection, site not specified 12/27/2013 Urgency of urination 12/27/2013 GERD (gastroesophageal reflux disease) Esophageal reflux 12/27/2013 Nausea with vomiting 01/05/2014 Fibromyalgia Mylagia and myositis, unspecified 01/24/2014 Vaginal yeast infection Candidiasis of vulva and vagina 03/07/2014 Thrush, oral Candidiasis of mouth 03/12/2014 Malar rash Rash and other nonspecific skin eruption 04/11/2014 Postmenopausal Asymptomatic postmenopausal status (age-related) (natural) 04/11/2014 UTI (lower urinary tract infection) Urinary tract infection, site not specified 04/11/2014 Flank pain Abdominal pain, unspecified site 04/11/2014 Need for prophylactic vaccination and inoculation against influenza 04/11/2014 WILLIE (generalized anxiety disorder) Generalized anxiety disorder 04/11/2014 Migraine Migraine, unspecified, without mention of intractable migraine without mention of status migrainosus 04/11/2014 Malar rash Rash and other nonspecific skin eruption 04/11/2014 Postmenopausal Asymptomatic postmenopausal status (age-related) (natural) 04/11/2014 Nausea with vomiting 05/10/2014 WILLIE (generalized anxiety disorder) Generalized anxiety disorder 05/10/2014 Back pain Backache, unspecified 05/17/2014 Headache 05/17/2014 WILLIE (generalized anxiety disorder) Generalized anxiety disorder 06/11/2014 Migraine Migraine, unspecified, without mention of intractable migraine without mention of status migrainosus 06/11/2014 Bilateral lower abdominal cramping Abdominal pain, other specified site 06/11/2014 GERD (gastroesophageal reflux disease) Esophageal reflux 06/11/2014 Dysphagia Dysphagia, unspecified 06/11/2014 DDD (degenerative disc disease) Degeneration of intervertebral disc, site unspecified 06/11/2014 Left arm pain Pain in limb 06/11/2014 Fibromyalgia Mylagia and myositis, unspecified 06/15/2014 Knee pain, acute, unspecified laterality 06/19/2014 Left arm pain Pain in limb 06/20/2014 Knee pain, acute, unspecified laterality 06/20/2014 Other screening mammogram 06/20/2014 Osteoarthritis of left knee Osteoarthrosis, unspecified whether generalized or localized, lower leg 06/21/2014 Osteoarthritis of knee Osteoarthrosis, unspecified whether generalized or localized, lower leg 06/21/2014 Abnormal mammogram Abnormal mammogram, unspecified 06/21/2014 Fibromyalgia Mylagia and myositis, unspecified 06/22/2014 Sleep deprivation Problems related to lack of adequate sleep 06/22/2014 WILLIE (generalized anxiety disorder) Generalized anxiety disorder 07/10/2014 Breast calcification, right Other (abnormal) findings on radiological examination of breast 08/01/2014 WILLIE (generalized anxiety disorder) Generalized anxiety disorder 08/09/2014 Vertigo Dizziness and giddiness 08/09/2014 HTN (hypertension) Unspecified essential hypertension 08/09/2014 Rib pain on right side Chest pain, unspecified 08/09/2014 Thoracic or lumbosacral neuritis or radiculitis, unspecified 08/14/2014 WILLIE (generalized anxiety disorder) Generalized anxiety disorder 09/11/2014 Encounter for long-term (current) use of other medications 10/12/2014 WILLIE (generalized anxiety disorder) Generalized anxiety disorder 10/12/2014 Unspecified hypothyroidism 10/12/2014 Routine check-up Routine general medical examination at a health care facility 10/12/2014 Chest pain, unspecified 10/12/2014 Encounter for long-term (current) use of other medications 10/12/2014 HTN (hypertension) Unspecified essential hypertension 10/12/2014 Migraine Migraine, unspecified, without mention of intractable migraine without mention of status migrainosus 10/12/2014 Morbid obesity (HCC) Morbid obesity 10/12/2014 Esophageal reflux 10/12/2014 Fibromyalgia Mylagia and myositis, unspecified 10/12/2014 Unspecified hypothyroidism 11/02/2014 Routine check-up Routine general medical examination at a health care facility 11/02/2014 Elevated glucose Other abnormal glucose 11/12/2014 Unspecified hypothyroidism 11/12/2014 Other abnormal glucose 11/19/2014 Unspecified hypothyroidism 11/19/2014 Elevated glucose Other abnormal glucose 11/19/2014 Unspecified hypothyroidism 11/19/2014 Headache, unspecified headache type 12/11/2014 Fibromyalgia Mylagia and myositis, unspecified 12/11/2014 Nausea with vomiting 12/17/2014 WILLIE (generalized anxiety disorder) Generalized anxiety disorder 01/09/2015 Headache, unspecified headache type 01/17/2015 Unspecified essential hypertension 01/21/2015 Gastroesophageal reflux disease without esophagitis Esophageal reflux 01/21/2015 Osteoarthritis of left knee, unspecified osteoarthritis type 01/21/2015 DDD (degenerative disc disease), lumbar Degeneration of lumbar or lumbosacral intervertebral disc 01/21/2015 Morbid obesity (HCC) Morbid obesity 01/21/2015 WILLIE (generalized anxiety disorder) Generalized anxiety disorder 02/12/2015 Right knee pain Pain in joint, lower leg 02/18/2015 Right knee pain Pain in joint, lower leg 02/21/2015 Fibromyalgia Mylagia and myositis, unspecified 03/28/2015 Osteoarthritis of left knee, unspecified osteoarthritis type 03/28/2015 Knee pain, acute, right 04/10/2015 Arthritis Arthropathy, unspecified, site unspecified 04/10/2015 WILLIE (generalized anxiety disorder) Generalized anxiety disorder 04/15/2015 WILLIE (generalized anxiety disorder) Generalized anxiety disorder 05/01/2015 Acute bronchitis, unspecified organism 05/01/2015 Need for influenza vaccination Need for prophylactic vaccination and inoculation against influenza 05/01/2015 Coronary artery spasm Other and unspecified angina pectoris 05/01/2015 Yeast vaginitis Candidiasis of vulva and vagina 05/01/2015 Acute bronchitis, unspecified organism 05/06/2015 Yeast vaginitis Candidiasis of vulva and vagina 05/06/2015 Acute bacterial sinusitis Acute sinusitis, unspecified 05/23/2015 WILLIE (generalized anxiety disorder) Generalized anxiety disorder 07/05/2015 Acquired hypothyroidism Unspecified hypothyroidism 08/02/2015 Unspecified essential hypertension 08/02/2015 WILLIE (generalized anxiety disorder) Generalized anxiety disorder 08/02/2015 Acquired hypothyroidism Unspecified hypothyroidism 08/02/2015 Unspecified essential hypertension 08/02/2015 Achilles bursitis, left 08/02/2015 MICHAEL (obstructive sleep apnea) Obstructive sleep apnea (adult) (pediatric) 08/02/2015 Acquired hypothyroidism Unspecified hypothyroidism 11/01/2015 WILLIE (generalized anxiety disorder) Generalized anxiety disorder 11/01/2015 Gastroesophageal reflux disease without esophagitis Esophageal reflux 11/01/2015 Unspecified essential hypertension 11/01/2015 Fibromyalgia Mylagia and myositis, unspecified 11/01/2015 Obesity, morbid, BMI 50 or higher (HCC) 11/01/2015 Acquired hypothyroidism Unspecified hypothyroidism 11/01/2015 Coronary artery spasm Other and unspecified angina pectoris 11/01/2015 WILLIE (generalized anxiety disorder) Generalized anxiety disorder 02/03/2016 Encounter for medication management 02/07/2016 WILLIE (generalized anxiety disorder) Generalized anxiety disorder 02/07/2016 Encounter for medication management 02/07/2016 Insomnia, persistent Persistent disorder of initiating or maintaining sleep 02/07/2016 Diabetes type 2, controlled (HCC) Type II or unspecified type diabetes mellitus without mention of complication, not stated as uncontrolled 02/07/2016 EIC (epidermal inclusion cyst) Sebaceous cyst 02/07/2016 Right knee pain Pain in joint, lower leg 02/07/2016 Dysuria 02/07/2016 Diabetes type 2, controlled (HCC) Type II or unspecified type diabetes mellitus without mention of complication, not stated as uncontrolled 02/12/2016 Right knee pain Pain in joint, lower leg 02/12/2016 Osteoarthritis, unspecified osteoarthritis type, unspecified site 02/14/2016 Nonspecific chest pain 04/01/2016 Cervical radicular pain Brachial neuritis or radiculitis nos 04/01/2016 Pelvic pain Unspecified symptom associated with female genital organs 04/06/2016 Insomnia, persistent Persistent disorder of initiating or maintaining sleep 04/06/2016 Acquired hypothyroidism Unspecified hypothyroidism 04/06/2016 Unspecified essential hypertension 04/06/2016 Chronic fatigue Other malaise and fatigue 04/06/2016 Hyperglycemia Other abnormal glucose 04/06/2016 Pelvic pain Unspecified symptom associated with female genital organs 04/06/2016 Insomnia, persistent Persistent disorder of initiating or maintaining sleep 04/06/2016 Acquired hypothyroidism Unspecified hypothyroidism 04/06/2016 Unspecified essential hypertension 04/06/2016 Chronic fatigue Other malaise and fatigue 04/06/2016 Hyperglycemia Other abnormal glucose 04/06/2016 Flu vaccine need Need for prophylactic vaccination and inoculation against influenza 04/06/2016 Anemia, unspecified type 04/09/2016 Pelvic pain Unspecified symptom associated with female genital organs 05/01/2016 WILLIE (generalized anxiety disorder) Generalized anxiety disorder 05/11/2016 Unspecified essential hypertension 05/25/2016 Morbid obesity due to excess calories (HCC) 05/25/2016 Precordial pain 05/25/2016 MICHAEL (obstructive sleep apnea) Obstructive sleep apnea (adult) (pediatric) 05/25/2016 Preop cardiovascular exam Pre-operative cardiovascular examination 05/25/2016 Unspecified essential hypertension 05/29/2016 Morbid obesity due to excess calories (HCC) 05/29/2016 Precordial pain 05/29/2016 MICHAEL (obstructive sleep apnea) Obstructive sleep apnea (adult) (pediatric) 05/29/2016 Preop cardiovascular exam Pre-operative cardiovascular examination 05/29/2016 Unspecified essential hypertension 05/29/2016 Morbid obesity due to excess calories (HCC) 05/29/2016 Precordial pain 05/29/2016 MICHAEL (obstructive sleep apnea) Obstructive sleep apnea (adult) (pediatric) 05/29/2016 Preop cardiovascular exam Pre-operative cardiovascular examination 05/29/2016 Unspecified essential hypertension 05/29/2016 Morbid obesity due to excess calories (HCC) 05/29/2016 Precordial pain 05/29/2016 MICHAEL (obstructive sleep apnea) Obstructive sleep apnea (adult) (pediatric) 05/29/2016 Preop cardiovascular exam Pre-operative cardiovascular examination 05/29/2016 Pre-op examination Preoperative examination, unspecified 06/03/2016 Surgery, elective Unspecified elective surgery for purposes other than remedying health states 06/03/2016 Pre-op examination Preoperative examination, unspecified 06/03/2016 Strain of right knee, initial encounter 06/03/2016 Osteoarthritis of right knee, unspecified osteoarthritis type 06/03/2016 Surgery, elective Unspecified elective surgery for purposes other than remedying health states 06/03/2016 Insomnia, persistent Persistent disorder of initiating or maintaining sleep 06/04/2016 WILLIE (generalized anxiety disorder) Generalized anxiety disorder 06/09/2016 WILLIE (generalized anxiety disorder) Generalized anxiety disorder 06/09/2016 Insomnia, persistent Persistent disorder of initiating or maintaining sleep 06/15/2016 Insomnia, persistent Persistent disorder of initiating or maintaining sleep 06/15/2016 WILLIE (generalized anxiety disorder) Generalized anxiety disorder 07/07/2016 WILLIE (generalized anxiety disorder) Generalized anxiety disorder 07/10/2016 Fibromyalgia Mylagia and myositis, unspecified 07/22/2016 WILLIE (generalized anxiety disorder) Generalized anxiety disorder 08/17/2016 WILLIE (generalized anxiety disorder) Generalized anxiety disorder 08/19/2016 WILLIE (generalized anxiety disorder) Generalized anxiety disorder 08/19/2016 WILLIE (generalized anxiety disorder) Generalized anxiety disorder 08/19/2016 Nausea and vomiting, intractability of vomiting not specified, unspecified vomiting type 08/19/2016 Acute non-recurrent pansinusitis 08/25/2016 Acute bronchitis, unspecified organism 08/25/2016 Fibromyalgia Mylagia and myositis, unspecified 08/25/2016 Yeast vaginitis Candidiasis of vulva and vagina 08/27/2016 Yeast infection Other and unspecified mycoses 08/27/2016 Vitamin D deficiency Unspecified vitamin D deficiency 09/23/2016 Anemia, unspecified type 09/23/2016 WILLIE (generalized anxiety disorder) Generalized anxiety disorder 09/23/2016 Insomnia, persistent Persistent disorder of initiating or maintaining sleep 09/23/2016 Unspecified essential hypertension 09/23/2016 Acquired hypothyroidism Unspecified hypothyroidism 09/23/2016 Obesity, Class III, BMI 40-49.9 (morbid obesity) Morbid obesity 09/23/2016 Generalized osteoarthritis of multiple sites Generalized osteoarthrosis, involving multiple sites 09/23/2016 Vitamin D deficiency Unspecified vitamin D deficiency 09/23/2016 Vitamin D deficiency Unspecified vitamin D deficiency 09/24/2016 Vitamin D deficiency Unspecified vitamin D deficiency 09/24/2016 Gastroesophageal reflux disease with esophagitis 11/13/2016 WILLIE (generalized anxiety disorder) Generalized anxiety disorder 11/26/2016 Diarrhea, unspecified type 12/01/2016 Fungal dermatitis Dermatomycosis, unspecified 12/01/2016 Hyperlipidemia with target LDL less than 130 Other and unspecified hyperlipidemia 12/01/2016 Obesity, Class III, BMI 40-49.9 (morbid obesity) Morbid obesity 12/01/2016 BMI 45.0-49.9, adult (HCC) Body Mass Index 45.0-49.9, adult 12/01/2016 Hyperglycemia Other abnormal glucose 12/01/2016 Acquired hypothyroidism Unspecified hypothyroidism 12/01/2016 Family history of colon cancer Family history of malignant neoplasm of gastrointestinal tract 12/01/2016 History of colon polyps Personal history of colonic polyps 12/01/2016 Nausea and vomiting, intractability of vomiting not specified, unspecified vomiting type 12/16/2016 WILLIE (generalized anxiety disorder) Generalized anxiety disorder 12/29/2016 Gastroesophageal reflux disease without esophagitis Esophageal reflux 12/29/2016 Unspecified essential hypertension 12/29/2016 Acquired hypothyroidism Unspecified hypothyroidism 12/29/2016 Lipoma of left upper extremity 12/29/2016 Lower abdominal pain Abdominal pain, other specified site 01/21/2017 Rectal pain Anal or rectal pain 01/21/2017 Hematochezia Blood in stool 01/21/2017 Constipation due to opioid therapy 01/21/2017 Irritable bowel syndrome with constipation Irritable bowel syndrome 01/21/2017 Esophageal dysphagia Dysphagia, pharyngoesophageal phase 01/21/2017 Fibromyalgia Mylagia and myositis, unspecified 02/05/2017 Gastroesophageal reflux disease with esophagitis 02/09/2017 Fibromyalgia Mylagia and myositis, unspecified 02/09/2017 Unspecified essential hypertension 03/01/2017 MICHAEL (obstructive sleep apnea) Obstructive sleep apnea (adult) (pediatric) 03/01/2017 Fibromyalgia Mylagia and myositis, unspecified 03/01/2017 Class 3 obesity due to excess calories with serious comorbidity and body mass index (BMI) of 50.0 to 59.9 in adult 03/01/2017 Acquired hypothyroidism Unspecified hypothyroidism 03/02/2017 Hyperglycemia Other abnormal glucose 03/02/2017 Hyperlipidemia with target LDL less than 130 Other and unspecified hyperlipidemia 03/02/2017 Left wrist pain Pain in joint, forearm 03/02/2017 Need for hepatitis C screening test Special screening examination for other specified viral diseases 03/02/2017 Acute non-recurrent sinusitis of other sinus 03/02/2017 Unspecified essential hypertension 03/02/2017 Fibromyalgia Mylagia and myositis, unspecified 03/02/2017 Acute non-recurrent sinusitis of other sinus 03/02/2017 Unspecified essential hypertension 03/02/2017 Fibromyalgia Mylagia and myositis, unspecified 03/02/2017 Acquired hypothyroidism Unspecified hypothyroidism 03/02/2017 Need for hepatitis C screening test Special screening examination for other specified viral diseases 03/02/2017 Left wrist pain Pain in joint, forearm 03/02/2017 Lipoma of left lower extremity 03/04/2017 Abnormal nasal finding Other diseases of nasal cavity and sinuses 03/17/2017 Esophageal dysphagia Dysphagia, pharyngoesophageal phase 03/23/2017 Lower abdominal pain, unspecified 03/23/2017 Chronic maxillary sinusitis 03/24/2017 Chronic maxillary sinusitis 03/24/2017 Nausea Nausea alone 04/02/2017 Chronic maxillary sinusitis 04/07/2017 Nausea Nausea alone 04/15/2017 WILLIE (generalized anxiety disorder) Generalized anxiety disorder 04/16/2017 Insomnia, persistent Persistent disorder of initiating or maintaining sleep 04/30/2017 Fibromyalgia Mylagia and myositis, unspecified 05/05/2017 Malaise and fatigue Other malaise and fatigue 05/17/2017 Screening, anemia, deficiency, iron Screening for iron deficiency anemia 05/17/2017 Hyperglycemia Other abnormal glucose 05/17/2017 Need for influenza vaccination Need for prophylactic vaccination and inoculation against influenza 05/17/2017 Nausea Nausea alone 05/17/2017 WILLIE (generalized anxiety disorder) Generalized anxiety disorder 05/17/2017 Unspecified essential hypertension 05/17/2017 Gastroesophageal reflux disease without esophagitis Esophageal reflux 05/17/2017 Periumbilical abdominal pain Abdominal pain, periumbilic 05/17/2017 Acquired hypothyroidism Unspecified hypothyroidism 05/17/2017 Malaise and fatigue Other malaise and fatigue 05/17/2017 Dysuria 05/17/2017 High risk medications (not anticoagulants) long-term use Encounter for long-term (current) use of other medications 05/17/2017 Screening, anemia, deficiency, iron Screening for iron deficiency anemia 05/17/2017 Hyperglycemia Other abnormal glucose 05/17/2017 Abdominal distension Flatulence, eructation, and gas pain 05/17/2017 Chronic maxillary sinusitis 05/17/2017 Fibromyalgia Mylagia and myositis, unspecified 05/24/2017 Fibromyalgia Mylagia and myositis, unspecified 05/25/2017 Fibromyalgia Mylagia and myositis, unspecified 06/21/2017 Acute maxillary sinusitis, recurrence not specified 06/28/2017 Chronic maxillary sinusitis 06/28/2017 History of sinus surgery Personal history of surgery to other organs 06/28/2017 Fibromyalgia Mylagia and myositis, unspecified 07/15/2017 Fibromyalgia Mylagia and myositis, unspecified 08/06/2017 Acute maxillary sinusitis, recurrence not specified 08/11/2017 Insomnia, persistent Persistent disorder of initiating or maintaining sleep 08/14/2017 Fibromyalgia Mylagia and myositis, unspecified 08/24/2017 Acquired hypothyroidism Unspecified hypothyroidism 08/24/2017 Unspecified essential hypertension 08/24/2017 Gastroesophageal reflux disease with esophagitis 08/24/2017 Chronic sinusitis, unspecified location 08/24/2017 Epigastric abdominal pain Abdominal pain, epigastric 08/24/2017 Fibromyalgia Mylagia and myositis, unspecified 08/24/2017 Acquired hypothyroidism Unspecified hypothyroidism 08/24/2017 Unspecified essential hypertension 08/24/2017 Gastroesophageal reflux disease with esophagitis 08/24/2017 Chronic sinusitis, unspecified location 08/24/2017 Epigastric abdominal pain Abdominal pain, epigastric 08/24/2017 Acute non-recurrent sinusitis, unspecified location 08/26/2017 Antibiotics causing adverse effect in therapeutic use, initial encounter 08/26/2017 Chronic sinusitis, unspecified location 08/26/2017 Nausea Nausea alone 09/13/2017 Hyperlipidemia with target LDL less than 100 Other and unspecified hyperlipidemia 09/15/2017 Acute vaginitis Vaginitis and vulvovaginitis, unspecified 10/13/2017 Screening for diabetes mellitus (DM) Screening for diabetes mellitus 10/13/2017 Blood glucose elevated Other abnormal glucose 10/13/2017 Antibiotics causing adverse effect in therapeutic use, initial encounter 10/13/2017 Screening for diabetes mellitus (DM) Screening for diabetes mellitus 10/15/2017 Blood glucose elevated Other abnormal glucose 10/15/2017 Periumbilical abdominal pain Abdominal pain, periumbilic 10/15/2017 Abdominal distension Flatulence, eructation, and gas pain 10/15/2017 Epigastric abdominal pain Abdominal pain, epigastric 10/15/2017 Fatty liver Other chronic nonalcoholic liver disease 10/19/2017 Increased potassium in the blood Hyperpotassemia 10/19/2017 Fatty liver Other chronic nonalcoholic liver disease 10/26/2017 Obesity, Class III, BMI 40-49.9 (morbid obesity) Morbid obesity 10/26/2017 Right upper quadrant abdominal pain Abdominal pain, right upper quadrant 10/26/2017 Fatty liver Other chronic nonalcoholic liver disease 10/26/2017 Obesity, Class III, BMI 40-49.9 (morbid obesity) Morbid obesity 10/26/2017 Upper abdominal pain Abdominal pain, other specified site 11/11/2017 Constipation, chronic Unspecified constipation 11/11/2017 Therapeutic opioid induced constipation 11/11/2017 Chronic sinusitis, unspecified location 11/16/2017 Constipation, chronic Unspecified constipation 11/17/2017 Chronic maxillary sinusitis 11/22/2017 Chronic maxillary sinusitis 11/24/2017 Nausea Nausea alone 12/14/2017 Chronic maxillary sinusitis 12/15/2017 Oral thrush Candidiasis of mouth 12/15/2017 Chronic maxillary sinusitis 12/21/2017 Unspecified essential hypertension 12/21/2017 Insomnia, persistent Persistent disorder of initiating or maintaining sleep 12/21/2017 Hyperlipidemia with target LDL less than 100 Other and unspecified hyperlipidemia 12/21/2017 Acquired hypothyroidism Unspecified hypothyroidism 12/21/2017 Fibromyalgia Mylagia and myositis, unspecified 12/21/2017 Elevated uric acid in blood Other abnormal blood chemistry 12/21/2017 Hypertriglyceridemia Pure hyperglyceridemia 12/21/2017 Well adult exam Routine general medical examination at a health care facility 12/21/2017 Hyperlipidemia with target LDL less than 100 Other and unspecified hyperlipidemia 12/24/2017 Numbness and tingling of both feet 12/28/2017 Lumbar radiculopathy Thoracic or lumbosacral neuritis or radiculitis, unspecified 12/28/2017 Unspecified essential hypertension 02/14/2018 Hypertriglyceridemia Pure hyperglyceridemia 02/14/2018 Fibromyalgia Mylagia and myositis, unspecified 02/18/2018 Unspecified essential hypertension 02/18/2018 Hyperlipidemia, unspecified hyperlipidemia type 02/23/2018 Elevated hemoglobin A1c Other abnormal blood chemistry 02/23/2018 Gastroesophageal reflux disease with esophagitis 03/08/2018 Acquired hypothyroidism Unspecified hypothyroidism 03/08/2018 Hyperlipidemia with target LDL less than 100 Other and unspecified hyperlipidemia 03/08/2018 Insomnia, persistent Persistent disorder of initiating or maintaining sleep 03/08/2018 Encounter for screening mammogram for breast cancer 03/08/2018 Essential hypertension Unspecified essential hypertension 03/08/2018 Need for shingles vaccine Need for prophylactic vaccination and inoculation against varicella 03/08/2018 Hyperlipidemia with target LDL less than 100 Other and unspecified hyperlipidemia 03/21/2018 Abnormal mammogram Abnormal mammogram, unspecified 03/23/2018 Breast calcification, right Other (abnormal) findings on radiological examination of breast 03/23/2018 Acquired hypothyroidism Unspecified hypothyroidism 03/25/2018 Abnormal mammogram Abnormal mammogram, unspecified 04/06/2018 Breast calcification, right Other (abnormal) findings on radiological examination of breast 04/06/2018 Elevated uric acid in blood Other abnormal blood chemistry 04/22/2018 Nausea Nausea alone 05/04/2018 Chronic maxillary sinusitis 05/04/2018 Need for influenza vaccination Need for prophylactic vaccination and inoculation against influenza 05/11/2018 Acute non-recurrent sinusitis of other sinus 05/11/2018 Seasonal allergic rhinitis due to pollen 05/11/2018 Gastroesophageal reflux disease without esophagitis Esophageal reflux 05/11/2018 Unspecified essential hypertension 05/11/2018 Acquired hypothyroidism Unspecified hypothyroidism 05/11/2018 Fibromyalgia Mylagia and myositis, unspecified 05/24/2018 Insomnia, persistent Persistent disorder of initiating or maintaining sleep 05/24/2018 Acquired hypothyroidism Unspecified hypothyroidism 06/17/2018 Hyperlipidemia with target LDL less than 100 Other and unspecified hyperlipidemia 06/17/2018 Fatty liver Other chronic nonalcoholic liver disease 06/17/2018 Increased potassium in the blood Hyperpotassemia 06/17/2018 Elevated uric acid in blood Other abnormal blood chemistry 07/22/2018 Acute bronchitis, unspecified organism 07/22/2018 Hyperlipidemia with target LDL less than 100 Other and unspecified hyperlipidemia 07/31/2018 Hyperlipidemia with target LDL less than 100 Other and unspecified hyperlipidemia 08/05/2018 Controlled type 2 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 disease, 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) 08/05/2018 Acute non-recurrent sinusitis of other sinus 08/05/2018 Tinea corporis Dermatophytosis of the body 08/05/2018 WILLIE (generalized anxiety disorder) Generalized anxiety disorder 08/05/2018 Abdominal lipoma Lipoma of other skin and subcutaneous tissue 08/05/2018 Claudication Peripheral vascular disease, unspecified 08/05/2018 Numbness of right foot 08/05/2018 Lumbar radiculopathy Thoracic or lumbosacral neuritis or radiculitis, unspecified 08/05/2018 Controlled type 2 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 disease, unspecified whether senior care insulin use (HCC) 08/05/2018 Obesity, Class III, BMI 40-49.9 (morbid obesity) Morbid obesity 08/05/2018 Encounter for screening mammogram for breast cancer 08/05/2018 Acute vaginitis Vaginitis and vulvovaginitis, unspecified 08/05/2018 Insomnia, persistent Persistent disorder of initiating or maintaining sleep 08/17/2018 Unspecified essential hypertension 08/17/2018 Serum potassium elevated Hyperpotassemia 08/18/2018 Nausea Nausea alone 08/29/2018 Fibromyalgia Mylagia and myositis, unspecified 09/01/2018 Hyperlipidemia with target LDL less than 100 Other and unspecified hyperlipidemia 09/01/2018 Claudication Peripheral vascular disease, unspecified 09/01/2018 Lumbar radiculopathy Thoracic or lumbosacral neuritis or radiculitis, unspecified 09/01/2018 Numbness of right foot 09/01/2018 Gastroesophageal reflux disease with esophagitis 09/13/2018 Arthralgia of both hands 09/22/2018 Pain in joints of both feet 09/22/2018 Arthralgia of both hands 09/22/2018 Pain in joints of both feet 09/22/2018 Eczema, unspecified type 09/22/2018 Acquired hypothyroidism Unspecified hypothyroidism 09/22/2018 Insomnia, persistent Persistent disorder of initiating or maintaining sleep 09/22/2018 Insomnia, persistent Persistent disorder of initiating or maintaining sleep 10/10/2018 Eczema, unspecified type 10/10/2018 Acquired hypothyroidism Unspecified hypothyroidism 10/10/2018 Gastroesophageal reflux disease with esophagitis 10/10/2018 Nausea Nausea alone 10/10/2018 Unspecified essential hypertension 10/10/2018 Hyperlipidemia with target LDL less than 100 Other and unspecified hyperlipidemia 10/10/2018 Elevated uric acid in blood Other abnormal blood chemistry 10/10/2018 Fibromyalgia Mylagia and myositis, unspecified 10/10/2018 Elevated uric acid in blood Other abnormal blood chemistry 10/12/2018 Essential hypertension Unspecified essential hypertension 10/13/2018 Rectal bleeding Hemorrhage of rectum and anus 12/05/2018 Hyperlipidemia with target LDL less than 100 Other and unspecified hyperlipidemia 01/13/2019 Acquired hypothyroidism Unspecified hypothyroidism 01/13/2019 Fibromyalgia Mylagia and myositis, unspecified 01/13/2019 Gastroesophageal reflux disease with esophagitis 01/13/2019 Nausea Nausea alone 01/13/2019 Eczema, unspecified type 01/13/2019 Essential hypertension Unspecified essential hypertension 01/13/2019 Insomnia, persistent Persistent disorder of initiating or maintaining sleep 01/13/2019 Need for hepatitis B vaccination Need for prophylactic vaccination and inoculation against viral hepatitis 01/13/2019 Need for pneumococcal vaccination Need for prophylactic vaccination against streptococcus pneumoniae (pneumococcus) 01/13/2019 MICHAEL (obstructive sleep apnea) Obstructive sleep apnea (adult) (pediatric) 01/13/2019 Hyperglycemia Other abnormal glucose 01/13/2019 Lipoma of upper extremity, unspecified laterality 01/13/2019 Essential hypertension Unspecified essential hypertension 01/30/2019 Hyperglycemia Other abnormal glucose 01/30/2019 Elevated uric acid in blood Other abnormal blood chemistry 02/09/2019 DDD (degenerative disc disease), lumbar Degeneration of lumbar or lumbosacral intervertebral disc 03/08/2019 Lumbar radiculopathy Thoracic or lumbosacral neuritis or radiculitis, unspecified 03/08/2019 Situational depression 03/08/2019 Sinusitis, unspecified chronicity, unspecified location 04/12/2019 Dizziness Dizziness and giddiness 04/12/2019 Acute vaginitis Vaginitis and vulvovaginitis, unspecified 04/12/2019 Low back pain, unspecified back pain laterality, unspecified chronicity, unspecified whether sciatica present 04/17/2019 Degeneration of lumbar intervertebral disc Degeneration of lumbar or lumbosacral intervertebral disc 04/17/2019 Elevated uric acid in blood Other abnormal blood chemistry 05/18/2019 DDD (degenerative disc disease), lumbar Degeneration of lumbar or lumbosacral intervertebral disc 06/06/2019 Lumbar radiculopathy Thoracic or lumbosacral neuritis or radiculitis, unspecified 06/06/2019 Need for influenza vaccination Need for prophylactic vaccination and inoculation against influenza 06/12/2019 WILLIE (generalized anxiety disorder) Generalized anxiety disorder 06/12/2019 Seasonal allergic rhinitis due to pollen 06/12/2019 Unspecified essential hypertension 06/12/2019 Acquired hypothyroidism Unspecified hypothyroidism 06/12/2019 Fibromyalgia Mylagia and myositis, unspecified 06/12/2019 Serum potassium elevated Hyperpotassemia 06/20/2019 WILLIE (generalized anxiety disorder) Generalized anxiety disorder 06/20/2019 Seasonal allergic rhinitis due to pollen 06/20/2019 Unspecified essential hypertension 06/20/2019 Acquired hypothyroidism Unspecified hypothyroidism 06/20/2019 Fibromyalgia Mylagia and myositis, unspecified 06/20/2019 Acquired hypothyroidism Unspecified hypothyroidism 07/28/2019 Acquired hypothyroidism Unspecified hypothyroidism 08/02/2019 Hyperglycemia Other abnormal glucose 08/02/2019 Essential hypertension Unspecified essential hypertension 08/02/2019 Acquired hypothyroidism Unspecified hypothyroidism 08/02/2019 Essential hypertension Unspecified essential hypertension 08/02/2019 Fibromyalgia Mylagia and myositis, unspecified 08/02/2019 Nausea Nausea alone 08/02/2019 Eczema, unspecified type 08/02/2019 Gastroesophageal reflux disease with esophagitis 08/02/2019 WILLIE (generalized anxiety disorder) Generalized anxiety disorder 08/02/2019 Elevated uric acid in blood Other abnormal blood chemistry 08/02/2019 Sinusitis, unspecified chronicity, unspecified location 08/02/2019 Dizziness Dizziness and giddiness 08/02/2019 Hyperglycemia Other abnormal glucose 08/02/2019 Well adult exam Routine general medical examination at a health care facility 08/02/2019 Low kidney function Unspecified disorder of kidney and ureter 08/03/2019 Hypothyroidism (acquired) Unspecified hypothyroidism 08/03/2019 Fibromyalgia Mylagia and myositis, unspecified 09/25/2019 Viral syndrome Unspecified viral infection, in conditions classified elsewhere and of unspecified site 09/25/2019 Fibromyalgia Mylagia and myositis, unspecified 09/25/2019 Viral syndrome Unspecified viral infection, in conditions classified elsewhere and of unspecified site 09/25/2019 Acquired hypothyroidism Unspecified hypothyroidism 09/25/2019 Unspecified essential hypertension 09/25/2019 WILLIE (generalized anxiety disorder) Generalized anxiety disorder 09/25/2019 Fibromyalgia Mylagia and myositis, unspecified 09/25/2019 Viral syndrome Unspecified viral infection, in conditions classified elsewhere and of unspecified site 09/25/2019 Acute bronchitis, unspecified organism 10/02/2019 Acute vaginitis Vaginitis and vulvovaginitis, unspecified 10/02/2019 Thrush Candidiasis of mouth 10/12/2019 Acute bronchitis, unspecified organism 10/12/2019 Subjective memory complaints Memory loss 02/01/2020 Hypothyroidism (acquired) Unspecified hypothyroidism 02/01/2020 Abnormal glucose Other abnormal glucose 02/01/2020 Arthritis of right foot Unspecified arthropathy, ankle and foot 02/01/2020 Arthritis of left foot Unspecified arthropathy, ankle and foot 02/01/2020 Capsulitis of ankle, right 02/01/2020 Pain in both hands 02/01/2020 Abnormal glucose Other abnormal glucose 02/01/2020 Hypothyroidism (acquired) Unspecified hypothyroidism 02/01/2020 Subjective memory complaints Memory loss 02/01/2020 Nausea Nausea alone 02/13/2020 Essential hypertension Unspecified essential hypertension 02/13/2020 Gastroesophageal reflux disease with esophagitis 02/13/2020 Sinusitis, unspecified chronicity, unspecified location 02/13/2020 Dizziness Dizziness and giddiness 02/13/2020 Fibromyalgia Mylagia and myositis, unspecified 02/13/2020 Acquired hypothyroidism Unspecified hypothyroidism 02/13/2020 Elevated uric acid in blood Other abnormal blood chemistry 02/13/2020 Suspected COVID-19 virus infection 02/13/2020 Acute non-recurrent sinusitis of other sinus 02/13/2020 DDD (degenerative disc disease), lumbar Degeneration of lumbar or lumbosacral intervertebral disc 02/13/2020 Thrush Candidiasis of mouth 02/14/2020 Need for influenza vaccination Need for prophylactic vaccination and inoculation against influenza 04/22/2020 Acquired hypothyroidism Unspecified hypothyroidism 04/22/2020 Essential hypertension Unspecified essential hypertension 04/22/2020 Sinusitis, unspecified chronicity, unspecified location 04/22/2020 Dizziness Dizziness and giddiness 04/22/2020 Fibromyalgia Mylagia and myositis, unspecified 04/22/2020 Gastroesophageal reflux disease with esophagitis 04/22/2020 Nausea Nausea alone 04/22/2020 Elevated uric acid in blood Other abnormal blood chemistry 04/22/2020 Need for influenza vaccination Need for prophylactic vaccination and inoculation against influenza 04/22/2020 Acquired hypothyroidism Unspecified hypothyroidism 04/22/2020 Essential hypertension Unspecified essential hypertension 04/22/2020 Sinusitis, unspecified chronicity, unspecified location 04/22/2020 Dizziness Dizziness and giddiness 04/22/2020 Fibromyalgia Mylagia and myositis, unspecified 04/22/2020 Gastroesophageal reflux disease with esophagitis without hemorrhage 04/22/2020 Nausea Nausea alone 04/22/2020 Elevated uric acid in blood Other abnormal blood chemistry 04/22/2020 Pannus, abdominal Localized adiposity 04/22/2020 Acute non-recurrent sinusitis of other sinus 05/06/2020 Hypothyroidism (acquired) Unspecified hypothyroidism 05/15/2020 Unspecified essential hypertension 05/15/2020 Acute diffuse otitis externa of right ear 05/15/2020 Yeast vaginitis Candidiasis of vulva and vagina 05/15/2020 Hypothyroidism (acquired) Unspecified hypothyroidism 05/15/2020 Unspecified essential hypertension 05/15/2020 Acute diffuse otitis externa of right ear 05/21/2020 Elevated TSH Other abnormal blood chemistry 05/21/2020 Elevated serum free T4 level Nonspecific abnormal results of thyroid function study 05/21/2020 Acquired hypothyroidism Unspecified hypothyroidism 05/21/2020 Class 3 severe obesity due to excess calories with body mass index (BMI) of 50.0 to 59.9 in adult, unspecified whether serious comorbidity present 05/23/2020 OME (otitis media with effusion), right 06/03/2020 H/O drug allergy Personal history of allergy to unspecified medicinal agent 06/03/2020 Vaginal yeast infection Candidiasis of vulva and vagina 06/03/2020 Chronic right shoulder pain Pain in joint, shoulder region 06/10/2020 H/O drug allergy Personal history of allergy to unspecified medicinal agent 06/10/2020 Arthralgia, unspecified joint 06/12/2020 Encounter for screening mammogram for breast cancer 06/12/2020 Nausea Nausea alone 07/08/2020 Acquired hypothyroidism Unspecified hypothyroidism 07/10/2020 Essential hypertension Unspecified essential hypertension 07/10/2020 Hypothyroidism (acquired) Unspecified hypothyroidism 07/10/2020 Low kidney function Unspecified disorder of kidney and ureter 07/10/2020 Elevated serum free T4 level Nonspecific abnormal results of thyroid function study 07/10/2020 Low kidney function Unspecified disorder of kidney and ureter 07/16/2020 Low kidney function Unspecified disorder of kidney and ureter 07/16/2020 Hyperlipidemia, unspecified hyperlipidemia type 07/16/2020 Low kidney function Unspecified disorder of kidney and ureter 07/24/2020 Acute non-recurrent sinusitis of other sinus 08/12/2020 Acute bronchitis, unspecified organism 08/12/2020 COVID-19 virus infection 08/12/2020 Clavicle pain Pain in joint, shoulder region 08/20/2020 Primary osteoarthritis of right shoulder Primary localized osteoarthrosis, shoulder region 08/26/2020 Acute non-recurrent sinusitis of other sinus 08/26/2020 Acute bronchitis, unspecified organism 08/26/2020 COVID-19 virus infection 08/26/2020 Clavicle pain Pain in joint, shoulder region 08/26/2020 Sternum pain Chest pain, unspecified 09/13/2020 CKD stage G2/A2, GFR 60-89 and albumin creatinine ratio 30-299 mg/g 09/18/2020 Unspecified essential hypertension 09/18/2020 Primary osteoarthritis of left knee Primary localized osteoarthrosis, lower leg 09/18/2020 Morbid obesity with body mass index of 40.0-49.9 ([facility]) 09/18/2020 UTI (urinary tract infection), uncomplicated Urinary tract infection, site not specified 09/24/2020 UTI (urinary tract infection), uncomplicated Urinary tract infection, site not specified 09/24/2020 Post-menopausal Asymptomatic postmenopausal status (age-related) (natural) 09/24/2020 Hyperlipidemia, unspecified hyperlipidemia type 09/24/2020 Acquired hypothyroidism Unspecified hypothyroidism 09/24/2020 Fibromyalgia Mylagia and myositis, unspecified 09/24/2020 Claudication Peripheral vascular disease, unspecified 09/24/2020 Medicare annual wellness visit, subsequent Routine general medical examination at a health care facility 09/24/2020 Cystic lesion of abdominal viscera 09/24/2020 UTI (urinary tract infection), uncomplicated Urinary tract infection, site not specified 09/30/2020 Dysuria 10/01/2020 Lower abdominal pain Abdominal pain, other specified site 10/01/2020 Acquired hypothyroidism Unspecified hypothyroidism 10/11/2020 Essential hypertension Unspecified essential hypertension 10/11/2020 Elevated uric acid in blood Other abnormal blood chemistry 10/11/2020 Gastroesophageal reflux disease with esophagitis without hemorrhage 10/11/2020 Generalized osteoarthritis of multiple sites Generalized osteoarthrosis, involving multiple sites 10/11/2020 Hyperglycemia Other abnormal glucose 10/11/2020 Adhesive capsulitis of right shoulder Adhesive capsulitis of shoulder 10/11/2020 Acquired deformity of hand, unspecified laterality 10/17/2020 Primary osteoarthritis of both hands 10/17/2020 Primary osteoarthritis involving multiple joints 10/17/2020 Vitamin D deficiency Unspecified vitamin D deficiency 10/17/2020 Stage 3a chronic kidney disease (HCC) 10/17/2020 Hyperuricemia Other abnormal blood chemistry 10/17/2020 CKD stage G2/A2, GFR 60-89 and albumin creatinine ratio 30-299 mg/g 10/28/2020 Hyperglycemia Other abnormal glucose 10/28/2020 Vitamin D deficiency Unspecified vitamin D deficiency 10/28/2020 Acquired deformity of hand, unspecified laterality 10/28/2020 Osteoarthritis of both hands, unspecified osteoarthritis type 11/21/2020 Acquired deformity of hand, unspecified laterality 11/21/2020 Primary osteoarthritis of both hands 11/21/2020 Sternoclavicular (joint) (ligament) sprain, right, initial encounter 11/28/2020 Acquired hypothyroidism Unspecified hypothyroidism 12/02/2020 Erosive osteoarthritis of both hands 12/04/2020 Acquired deformity of hand, unspecified laterality 12/04/2020 Primary osteoarthritis involving multiple joints 12/04/2020 Nausea Nausea alone 12/18/2020 WILLIE (generalized anxiety disorder) Generalized anxiety disorder 01/03/2021 Fibromyalgia Mylagia and myositis, unspecified 01/03/2021 Erosive osteoarthritis of both hands 01/03/2021 MICHAEL (obstructive sleep apnea) Obstructive sleep apnea (adult) (pediatric) 01/03/2021 Essential hypertension Unspecified essential hypertension 01/03/2021 Acquired hypothyroidism Unspecified hypothyroidism 01/03/2021 WILLIE (generalized anxiety disorder) Generalized anxiety disorder 01/03/2021 Fibromyalgia Mylagia and myositis, unspecified 01/03/2021 Erosive osteoarthritis of both hands 01/03/2021 MICHAEL (obstructive sleep apnea) Obstructive sleep apnea (adult) (pediatric) 01/03/2021 Essential hypertension Unspecified essential hypertension 01/03/2021 Acquired hypothyroidism Unspecified hypothyroidism 01/03/2021 OM (onychomycosis) Dermatophytosis of nail 01/03/2021 WILLIE (generalized anxiety disorder) Generalized anxiety disorder 01/06/2021 Gastroesophageal reflux disease with esophagitis without hemorrhage 01/30/2021 Elevated uric acid in blood Other abnormal blood chemistry 01/30/2021 Essential hypertension Unspecified essential hypertension 01/30/2021 Acquired hypothyroidism Unspecified hypothyroidism 01/30/2021 Pain in right toe(s) 03/13/2021 Dystrophic nail Other specified disease of nail 03/13/2021 Gastroesophageal reflux disease with esophagitis without hemorrhage 04/22/2021 Essential hypertension Unspecified essential hypertension 04/22/2021 Acquired hypothyroidism Unspecified hypothyroidism 07/02/2021 Hypertension Unspecified essential hypertension 07/02/2021 WILLIE (generalized anxiety disorder) Generalized anxiety disorder 07/02/2021 Fibromyalgia Mylagia and myositis, unspecified 07/02/2021 OME (otitis media with effusion), right 07/02/2021 Lymphadenopathy, cervical 07/02/2021 Hyperglycemia Other abnormal glucose 07/02/2021 Hyperlipidemia, unspecified hyperlipidemia type 07/02/2021 Knee strain, right, initial encounter 07/02/2021 WILLIE (generalized anxiety disorder) Generalized anxiety disorder 07/04/2021 Hyperlipidemia, unspecified hyperlipidemia type 07/08/2021 Hypertension Unspecified essential hypertension 07/08/2021 Acquired hypothyroidism Unspecified hypothyroidism 07/08/2021 Hyperglycemia Other abnormal glucose 07/08/2021 Lymphadenopathy, cervical 07/08/2021 Lymphadenopathy, cervical 07/10/2021 Lymphadenopathy, cervical 07/10/2021 Lymphadenopathy, cervical 07/11/2021 Lymphadenopathy, cervical 07/14/2021 Essential hypertension Unspecified essential hypertension 07/28/2021 Hyperlipidemia, unspecified hyperlipidemia type 07/29/2021 Lymphadenopathy, cervical 07/31/2021 DDD (degenerative disc disease), cervical Degeneration of cervical intervertebral disc 08/05/2021 Essential hypertension Unspecified essential hypertension 08/08/2021 Acquired hypothyroidism Unspecified hypothyroidism 08/11/2021 Essential hypertension Unspecified essential hypertension 08/11/2021 DDD (degenerative disc disease), cervical Degeneration of cervical intervertebral disc 08/11/2021 Suspected COVID-19 virus infection 08/11/2021 CKD stage G2/A2, GFR 60-89 and albumin creatinine ratio 30-299 mg/g 08/14/2021 Essential hypertension Unspecified essential hypertension 08/14/2021 DDD (degenerative disc disease), cervical Degeneration of cervical intervertebral disc 08/14/2021 Hyperlipidemia, unspecified hyperlipidemia type 08/14/2021 WILLIE (generalized anxiety disorder) Generalized anxiety disorder 08/14/2021 Fibromyalgia Mylagia and myositis, unspecified 08/14/2021 Acquired hypothyroidism Unspecified hypothyroidism 08/14/2021 Gastroesophageal reflux disease with esophagitis without hemorrhage 08/14/2021 Elevated uric acid in blood Other abnormal blood chemistry 08/14/2021 Antibiotic-induced yeast infection 08/19/2021 Person under investigation for COVID-19 08/23/2021 Bronchitis Bronchitis, not specified as acute or chronic 08/23/2021 WILLIE (generalized anxiety disorder) Generalized anxiety disorder 10/04/2021 Strain of neck muscle, initial encounter 10/08/2021 Lumbar pain Lumbago 10/08/2021 Strain of lumbar region, initial encounter 10/08/2021 Spondylosis Spondylosis of unspecified site without mention of myelopathy 10/08/2021 Essential hypertension Unspecified essential hypertension 10/31/2021 Acquired hypothyroidism Unspecified hypothyroidism 11/06/2021 Gastroesophageal reflux disease with esophagitis without hemorrhage 11/06/2021 Nausea Nausea alone 11/06/2021 WILLIE (generalized anxiety disorder) Generalized anxiety disorder 11/12/2021 Fibromyalgia Mylagia and myositis, unspecified 11/12/2021 Medicare annual wellness visit, subsequent Routine general medical examination at a health care facility 11/28/2021 Acute bacterial sinusitis Acute sinusitis, unspecified 11/28/2021 DDD (degenerative disc disease), cervical Degeneration of cervical intervertebral disc 11/28/2021 Antibiotic-induced yeast infection 11/28/2021 Elevated uric acid in blood Other abnormal blood chemistry 11/28/2021 Acquired hypothyroidism Unspecified hypothyroidism 11/28/2021 Essential hypertension Unspecified essential hypertension 11/28/2021 Gastroesophageal reflux disease with esophagitis without hemorrhage 11/28/2021 WILLIE (generalized anxiety disorder) Generalized anxiety disorder 11/28/2021 Stage 3a chronic kidney disease (HCC) 11/28/2021 Hyperglycemia Other abnormal glucose 11/28/2021 Nausea Nausea alone 12/01/2021 Strain of neck muscle, initial encounter 12/24/2021 Lumbar pain Lumbago 12/24/2021 Strain of lumbar region, initial encounter 12/24/2021 Spondylosis Spondylosis of unspecified site without mention of myelopathy 12/24/2021 Nausea Nausea alone 01/06/2022 Nausea Nausea alone 02/20/2022 Morbid obesity with body mass index of 40.0-49.9 (HCC) 04/17/2022 Need for shingles vaccine Need for prophylactic vaccination and inoculation against varicella 04/17/2022 Prediabetes Other abnormal glucose 04/17/2022 Essential hypertension Unspecified essential hypertension 04/27/2022 Elevated uric acid in blood Other abnormal blood chemistry 04/27/2022 Encounter for support and coordination of transition of care 05/01/2022 WILLIE (generalized anxiety disorder) Generalized anxiety disorder 05/13/2022 DDD (degenerative disc disease), cervical Degeneration of cervical intervertebral disc 05/14/2022 Essential hypertension Unspecified essential hypertension 05/14/2022 Gastroesophageal reflux disease with esophagitis without hemorrhage 05/22/2022 Acquired hypothyroidism Unspecified hypothyroidism 05/22/2022 Encounter for screening mammogram for breast cancer 06/03/2022 Acute bacterial sinusitis Acute sinusitis, unspecified 06/03/2022 Allergic reaction, initial encounter 06/03/2022 Need for influenza vaccination Need for prophylactic vaccination and inoculation against influenza 06/03/2022 DDD (degenerative disc disease), cervical Degeneration of cervical intervertebral disc 06/10/2022 Essential hypertension Unspecified essential hypertension 06/10/2022 Dizziness Dizziness and giddiness 08/24/2022 Fall, initial encounter 08/24/2022 Routine lab draw Laboratory examination ordered as part of a routine general medical examination 08/24/2022 CKD stage G2/A2, GFR 60-89 and albumin creatinine ratio 30-299 mg/g 08/24/2022 Acquired hypothyroidism Unspecified hypothyroidism 08/24/2022 Pre-diabetes Other abnormal glucose 08/24/2022 Hypertriglyceridemia Pure hyperglyceridemia 08/24/2022 Elevated uric acid in blood Other abnormal blood chemistry 08/24/2022 Morbid obesity with body mass index of 40.0-49.9 ([facility]) 08/24/2022 Prediabetes Other abnormal glucose 08/24/2022 Dizziness Dizziness and giddiness 08/28/2022 CKD stage G2/A2, GFR 60-89 and albumin creatinine ratio 30-299 mg/g 08/28/2022 Pre-diabetes Other abnormal glucose 08/28/2022 Routine lab draw Laboratory examination ordered as part of a routine general medical examination 08/28/2022 Hypertriglyceridemia Pure hyperglyceridemia 08/28/2022 Acquired hypothyroidism Unspecified hypothyroidism 08/28/2022 Elevated uric acid in blood Other abnormal blood chemistry 08/28/2022 Encounter for support and coordination of transition of care 09/04/2022 Encounter for support and coordination of transition of care 09/08/2022 WILLIE (generalized anxiety disorder) Generalized anxiety disorder 09/08/2022 UTI (urinary tract infection), uncomplicated Urinary tract infection, site not specified 09/16/2022 Nausea Nausea alone 09/21/2022 Antibiotic-induced yeast infection 09/21/2022 Encounter for support and coordination of transition of care 09/28/2022 Elevated uric acid in blood Other abnormal blood chemistry 09/28/2022 Essential hypertension Unspecified essential hypertension 09/28/2022 Acute non-recurrent maxillary sinusitis 10/04/2022 DDD (degenerative disc disease), cervical Degeneration of cervical intervertebral disc 10/07/2022 Essential hypertension Unspecified essential hypertension 10/07/2022 Nausea Nausea alone 10/27/2022 Antibiotic-induced yeast infection 11/02/2022 Nausea Nausea alone 11/16/2022 Encounter for support and coordination of transition of care 12/18/2022 Essential hypertension Unspecified essential hypertension 12/27/2022 Nausea Nausea alone 01/07/2023 Acquired hypothyroidism Unspecified hypothyroidism 01/11/2023 Gastroesophageal reflux disease with esophagitis without hemorrhage 01/11/2023 Hypertriglyceridemia Pure hyperglyceridemia 01/28/2023 Hyperglycemia Other abnormal glucose 01/28/2023 Screening, lipid Screening for lipoid disorders 01/28/2023 Acquired hypothyroidism Unspecified hypothyroidism 01/28/2023 Hypertriglyceridemia Pure hyperglyceridemia 01/28/2023 Screening, lipid Screening for lipoid disorders 01/28/2023 Acquired hypothyroidism Unspecified hypothyroidism 01/28/2023 Stage 3a chronic kidney disease (HCC) 01/28/2023 Seasonal allergic rhinitis, unspecified trigger 01/28/2023 Hyperglycemia Other abnormal glucose 01/28/2023 Encounter for support and coordination of transition of care 02/19/2023 Prediabetes Other abnormal glucose 02/19/2023 Nausea Nausea alone 03/03/2023 DDD (degenerative disc disease), cervical Degeneration of cervical intervertebral disc 03/10/2023 Essential hypertension Unspecified essential hypertension 03/10/2023 Encounter for screening for COVID-19 03/31/2023 Acute URI Acute upper respiratory infections of unspecified site 03/31/2023 Hypotension, unspecified hypotension type 03/31/2023 CKD stage G2/A2, GFR 60-89 and albumin creatinine ratio 30-299 mg/g 03/31/2023 Elevated uric acid in blood Other abnormal blood chemistry 04/05/2023 Sinobronchitis Unspecified sinusitis (chronic) 04/05/2023 Need for influenza vaccination Need for prophylactic vaccination and inoculation against influenza 04/15/2023 Essential hypertension Unspecified essential hypertension 05/19/2023 Elevated uric acid in blood Other abnormal blood chemistry 08/09/2023 DDD (degenerative disc disease), cervical Degeneration of cervical intervertebral disc 08/09/2023 Essential hypertension Unspecified essential hypertension 08/09/2023 Encounter for support and coordination of transition of care 08/19/2023 Elevated uric acid in blood Other abnormal blood chemistry 08/19/2023 WILLIE (generalized anxiety disorder) Generalized anxiety disorder 08/19/2023 Acquired hypothyroidism Unspecified hypothyroidism 08/19/2023 CKD stage G2/A2, GFR 60-89 and albumin creatinine ratio 30-299 mg/g 08/19/2023 Gastroesophageal reflux disease with esophagitis without hemorrhage 08/19/2023 DDD (degenerative disc disease), cervical Degeneration of cervical intervertebral disc 08/19/2023 Essential hypertension Unspecified essential hypertension 08/19/2023 Morbid obesity with body mass index of 40.0-49.9 (HCC) 08/19/2023 Prediabetes Other abnormal glucose 08/19/2023 Medicare annual wellness visit, subsequent Routine general medical examination at a health care facility 08/19/2023 Urinary frequency 08/19/2023 Major depressive disorder, single episode, in partial remission Major depressive disorder, single episode, in partial or unspecified remission 08/19/2023 Chronic kidney disease, stage 3a (HCC) 08/19/2023 Gastroesophageal reflux disease with esophagitis without hemorrhage 08/22/2023 Elevated LFTs Other abnormal blood chemistry 08/24/2023 Encounter for support and coordination of transition of care 08/25/2023 Encounter for support and coordination of transition of care 08/30/2023 Recurrent UTI (urinary tract infection) Urinary tract infection, site not specified 09/02/2023 DDD (degenerative disc disease), cervical Degeneration of cervical intervertebral disc 09/07/2023 Elevated LFTs Other abnormal blood chemistry 09/07/2023 Nausea Nausea alone 09/07/2023 Muscle pain Mylagia and myositis, unspecified 09/07/2023 DDD (degenerative disc disease), cervical Degeneration of cervical intervertebral disc 09/07/2023 Essential hypertension Unspecified essential hypertension 09/07/2023 Urinary frequency 10/08/2023 Urinary frequency 10/08/2023 Erosive osteoarthritis of both hands 10/15/2023 Nausea Nausea alone 10/25/2023 Acquired hypothyroidism Unspecified hypothyroidism 11/03/2023 Hypertension Unspecified essential hypertension 12/09/2023 Fibromyalgia Mylagia and myositis, unspecified 12/09/2023 WILLIE (generalized anxiety disorder) Generalized anxiety disorder 12/09/2023 CKD stage G2/A2, GFR 60-89 and albumin creatinine ratio 30-299 mg/g 12/09/2023 Major depressive disorder, single episode, in partial remission Major depressive disorder, single episode, in partial or unspecified remission 12/09/2023 Hypertriglyceridemia Pure hyperglyceridemia 2023 Constipation, chronic Unspecified constipation 2023 Hypernatremia Hyperosmolality and/or hypernatremia 2023 CKD stage G2/A2, GFR 60-89 and albumin creatinine ratio 30-299 mg/g 2023 Acquired hypothyroidism Unspecified hypothyroidism 2023 Hypertension Unspecified essential hypertension 2023 Dizziness Dizziness and giddiness 2023 Nail problem Unspecified disease of nail 2023 Allergic conjunctivitis, bilateral Other chronic allergic conjunctivitis 2023 Gastroesophageal reflux disease with esophagitis without hemorrhage 01/13/2024 Muscle pain Mylagia and myositis, unspecified 03/07/2024 Erosive osteoarthritis of both hands 03/07/2024 Nausea Nausea alone 03/07/2024 Hypertriglyceridemia Pure hyperglyceridemia 03/10/2024 Arthritis Arthropathy, unspecified, site unspecified 03/10/2024 Frequent falls Personal history of fall 03/10/2024 Fatigue, unspecified type 03/10/2024 Frequent falls Personal history of fall 03/10/2024 Arthritis Arthropathy, unspecified, site unspecified 03/10/2024 Fatigue, unspecified type 03/10/2024 Acute bacterial sinusitis Acute sinusitis, unspecified 05/23/2024 Antibiotic-induced yeast infection 05/23/2024 Elevated uric acid in blood Other abnormal blood chemistry 06/21/2024 Muscle pain Mylagia and myositis, unspecified 06/21/2024 Gastroesophageal reflux disease with esophagitis without hemorrhage 06/21/2024 Hypertension Unspecified essential hypertension 06/21/2024 Hyperglycemia Other abnormal glucose 08/15/2024 Acquired hypothyroidism Unspecified hypothyroidism 08/15/2024 Hypertension Unspecified essential hypertension 08/15/2024 Erosive osteoarthritis of both hands 08/15/2024 Nausea Nausea alone 08/15/2024 Morbid obesity with body mass index of 40.0-49.9 (HCC) 08/15/2024 Acquired hypothyroidism Unspecified hypothyroidism 08/15/2024 Hypertension Unspecified essential hypertension 08/15/2024 Need for vaccine for Td (tetanus-diphtheria) Need for prophylactic vaccination with tetanus-diphtheria (Td) 08/15/2024 Hyperglycemia Other abnormal glucose 08/15/2024 Erosive osteoarthritis of both hands 08/23/2024 Nausea Nausea alone 08/23/2024 Morbid (severe) obesity due to excess calories (HCC) 08/31/2024 Gastroesophageal reflux disease with esophagitis without hemorrhage 10/16/2024 Medicare annual wellness visit, subsequent Routine general medical examination at a health care facility 11/02/2024 Elevated uric acid in blood Other abnormal blood chemistry 11/02/2024 Muscle pain Mylagia and myositis, unspecified 11/02/2024 Acquired hypothyroidism Unspecified hypothyroidism 11/02/2024 Hypertension Unspecified essential hypertension 11/02/2024 Erosive osteoarthritis of both hands 11/02/2024 Nausea Nausea alone 11/02/2024 Gastroesophageal reflux disease with esophagitis without hemorrhage 11/02/2024 Prediabetes Other abnormal glucose 11/02/2024 Arthritis of right temporomandibular joint 11/02/2024 Primary osteoarthritis of left knee Primary localized osteoarthrosis, lower leg 11/02/2024 Muscle pain Mylagia and myositis, unspecified 11/28/2024 Erosive osteoarthritis of both hands 11/28/2024 Gastroesophageal reflux disease with esophagitis without hemorrhage 11/28/2024 Hypertension Unspecified essential hypertension 11/28/2024 Muscle pain Mylagia and myositis, unspecified 11/28/2024 Erosive osteoarthritis of both hands 11/28/2024 Gastroesophageal reflux disease with esophagitis without hemorrhage 11/28/2024 Hypertension Unspecified essential hypertension 11/28/2024 Gastroesophageal reflux disease with esophagitis without hemorrhage 11/28/2024 Prediabetes Other abnormal glucose 11/30/2024 Medicare annual wellness visit, subsequent Routine general medical examination at a health care facility 11/30/2024 Hypertension Unspecified essential hypertension 11/30/2024 Acquired hypothyroidism Unspecified hypothyroidism 11/30/2024 Elevated uric acid in blood Other abnormal blood chemistry 11/30/2024 Urinary frequency 11/30/2024 Thrush Candidiasis of mouth 11/30/2024 Acute recurrent cystitis Acute cystitis 11/30/2024 Morbid obesity with body mass index of 40.0-49.9 ([facility]) 11/30/2024 Leukocytosis, unspecified type 12/01/2024 Rash Rash and other nonspecific skin eruption 12/06/2024 Prediabetes Other abnormal glucose 12/07/2024 Systemic lupus erythematosus, unspecified SLE type, unspecified organ involvement status ([facility]) 12/19/2024 Dermatitis Contact dermatitis and other eczema, due to unspecified cause 12/19/2024 Acute vaginitis Vaginitis and vulvovaginitis, unspecified 12/21/2024 Acute bacterial sinusitis Acute sinusitis, unspecified 12/21/2024 Nausea Nausea alone 12/21/2024 Unspecified essential hypertension 11/13/2013 Type II or unspecified type diabetes mellitus without mention of complication, not stated as uncontrolled 11/13/2013 Chest pain, unspecified 11/13/2013 Acute renal insufficiency Unspecified disorder of kidney and ureter 11/13/2013 Chronic pain Other chronic pain 11/13/2013 Unspecified hypothyroidism 11/13/2013 Fibromyalgia Mylagia and myositis, unspecified 11/13/2013 Goals Goal Patient Goal Type Associated Problems [...] 1:33 PM EDT) No Sandy Chen LPN Care Teams Certified Nurse Practitioner Relationship Specialty Start Date End Date Ar Vaca MD [address] [place] [address] PCP - General Family Medicine 04/28/22 Kory Rodriguez MD [address] [facility] [address] [place] [address] Consulting Physician Internal Medicine-Nephrology 10/03/20
--- OUTSIDE RECORDS SUMMARY | 2024-12-28 14:57 | XMS_ITS | Encounter Summary ---
Author Organization [place] [address] Care Team Providers Care Drill Operator Automatic Name Role Phone Kory Rodriguez MD Unavailable [phone] Ar Vaca MD Primary Care Provider + Encounter Details Date Type Department Care Team (Late st Contact Info) Description 11/28/2024 Orders Only [facility] [address] [place] [address] Monica Ibrahim MA Muscle pain; Erosive osteoarthritis of both hands; Gastroesophageal reflux disease with esophagitis without hemorrhage; Hypertension Social History Tobacco Use Types Packs/Day Years [...] Date Recorded PHQ-2 Total Score 0 11/02/2024 [facility] - Occupational [...] Refills Last Filled Start Date End Date propranoloL (INDERAL) 20 mg Oral TabletIndications:Es sential hypertension Take 1 Tablet by mouth 2 times daily. 90 Tablet 1 11/28/2024 omeprazole (PRILOSEC) 40 mg Oral Capsule, Delayed Release(E.C.)Indicat ions:Gastroesophagea l reflux disease with esophagitis without hemorrhage Take 1 Capsule by mouth daily. 90 Capsule 1 11/28/2024 hydroxychloroquine (PLAQUENIL) 200 mg Oral TabletIndications:Er osive osteoarthritis of both hands Take 1 Tablet by mouth daily. 90 Tablet 1 11/28/2024 cyclobenzaprine (FLEXERIL) 10 mg Oral TabletIndications:Mu scle pain Take 1 Tablet by mouth 3 times daily. 270 Tablet 1 11/28/2024 documented in this encounter Plan of Treatment [...] as of this encounter Visit Diagnoses Diagnosis Muscle pain Mylagia and myositis, unspecified Erosive osteoarthritis of both hands Gastroesophageal reflux disease with esophagitis without hemorrhage Hypertension Unspecified essential hypertension documented in this encounter Discontinued Medications Medication Sig Discontinue Reason Start Date End Da te cyclobenzaprine (FLEXERIL) 10 mg Oral TabletIndications:Muscle pain Take 1 Tablet by mouth 3 times daily. Reorder 11/28/2024 11/28/2024 hydroxychloroquine (PLAQUENIL) 200 mg Oral TabletIndications:Erosive osteoarthritis of both hands Take 1 Tablet by mouth daily. Reorder 11/28/2024 11/28/2024 omeprazole (PRILOSEC) 40 mg Oral Capsule, Delayed Release(E.C.)Indications:G astroesophageal reflux disease with esophagitis without hemorrhage Take 1 Capsule by mouth daily. Reorder 11/28/2024 11/28/2024 propranoloL (INDERAL) 20 mg Oral TabletIndications:Essentia l hypertension Take 1 Tablet by mouth 2 times daily. Reorder 11/28/2024 11/28/2024 documented as of this encounter Additional Health Concerns Assessment Noted Time A fall risk assessment has been complete d for the patient 11/02/2024 3:19 PM EDT documented as of this encounter Care Teams Drill Operator Automatic Relationship Specialty Start Date End Date Ar Vaca MD [address] [place] [address] PCP - General Family Medicine 04/28/22 Kory Rodriguez MD [address] [facility] [address] [place] [address] Consulting Physician Internal Medicine-Nephrology 10/03/20 documented as of this encounter
--- OUTSIDE RECORDS SUMMARY | 2024-12-28 14:57 | XMS_ITS | Encounter Summary ---
Author Organization [place] [address] Care Team Providers Care Tower Foreman Name Role Phone Kory Rodriguez MD Unavailable [phone] Ar Vaca MD Primary Care Provider + Reason for Visit * Reason Comments Medication Refill Encounter Details Date Type Department Care Team (Late st Contact Info) Description 11/28/2024 Refill [facility] [address] [place] [address] Ar Vaca MD [address] [place] [address] Medication Refill Social History Tobacco [...] Total Score 0 11/02/2024 [facility] - Occupational Stress Questionnaire Answer Date [...] Terri Rosa, RN documented in this encounter Miscellaneous Notes * Telephone Encounter - Mirta Galloway CPhT - 11/30/2024 6:37 AM EDT Omeprazole Duplicate refill request. This medication has already been approved within the last 7 days. Refill denied. documented in this encounter Plan of Treatment [...] as of this encounter Visit Diagnoses Diagnosis Gastroesophageal reflux disease with esophagitis without hemorrhage documented in this encounter Additional Health Concerns Assessment Noted Time A fall risk assessment has been complete d for the patient 11/02/2024 3:19 PM EDT documented as of this encounter Care Teams Tower Foreman Relationship Specialty Start Date End Date Ar Vaca MD [address] [place] [address] PCP - General Family Medicine 04/28/22 Kory Rodriguez MD [address] [place] [address] Consulting Physician Internal Medicine-Nephrology 10/03/20 documented as of this encounter
--- OUTSIDE RECORDS SUMMARY | 2024-12-28 14:57 | XMS_ITS | Encounter Summary ---
Author Organization [place] [address] Care Team Providers Care Airframe Design Engineer Name Role Phone Kory Rodriguez MD Unavailable [phone] Ar Vaca MD Primary Care Provider + Reason for Visit * Reason Onset Date Comments Prior Authorization 12/04/2024 Ozempic Encounter Details Date Type Department Care Team (Late st Contact Info) Description 12/04/2024 Telephone [facility] [address] [place] [address] Ar Vaca MD [address] [place] [address] Prior Authorization (Ozempic) Social History Tobacco Use Types Packs/Day Years [...] Date Recorded PHQ-2 Total Score 0 11/02/2024 [facility] - Occupational Stress [...] 11/02/2024 3:21 PM Terri Malone, CEASAR * Because of a physical, mental [...] Terri Martinez RN documented in this encounter Miscellaneous Notes * Telephone Encounter - Gayle Luther RN - 12/07/2024 8:24 AM EDT Patient approved for assistance with [employer]. Medication change form sent to get approval for assistance with Ozempic. Patient informed she can flower buncher or picker a sample. * Telephone Encounter - Terri Martinez RN - 12/07/2024 6:46 AM EDT Is she on a program for ozempic? * Telephone Encounter - Master Pirngle - 12/06/2024 4:15 PM EDT Select the most appropriate reason for this telephone message: Medication Management/Problem Who is calling? Patient What medication(s) do you have concerns about: Disp Refills Start End semaglutide 0.25 mg or 0.5 mg (2 mg/3 mL) SubQ Pen Injector 3 mL 0 11/30/2024 01/11/2025 Sig - Route: Inject 0.25 mg under the skin once a week for 28 days, THEN 0.5 mg once a week for 14 days. - Subcutaneou Prescribing provider: Dr Vaca What are your concerns/request: Pharmacy wants to charge $400 Pt suppose to be on a program where it is free Desired outcome: Other Program should not cost 400 dollars Last appointment date: 11/30/24 Pharmacy: [facility]/pharmacy #[id number] [place] [address] [address] [facility] [phone] Return Method of Communication: Phone Call Additional Information: N/A * Telephone Encounter - Amirah Arroyo - 12/04/2024 8:23 AM EDT PA for Ozempic has been approved Approval from 4/1/25 to 12/04/25 Approval has been sent to the pharmacy documented in this encounter Plan of Treatment [...] documented as of this encounter Care Teams Airframe Design Engineer Relationship Specialty Start Date End Date Ar Vaac MD [address] [place] [address] PCP - General Family Medicine 04/28/22 Kory Rodriguez MD [address] [facility] [address] [place] [address] Consulting Physician Internal Medicine-Nephrology 10/03/20 documented as of this encounter
--- OUTSIDE RECORDS SUMMARY | 2024-12-28 14:57 | XMS_ITS | Encounter Summary ---
Author Organization [place] [address] Care Team Providers Care Manager Film Name Role Phone Kory Rodriguez MD Unavailable [phone] Ar Vaca MD Primary Care Provider + Reason for Visit * Reason Onset Date Comments Relaying Information 11/28/2024 regarding p t's pharmacy Encounter Details Date Type Department Care Team (Late st Contact Info) Description 11/28/2024 Telephone [facility] [address] [place] [address] Ar Vaca MD [address] [place] [address] Relaying Information (regarding pt's pharmacy) Social History Tobacco Use Types Packs/Day Years Used Date Smoking Tobacco: Never Smokeless Tobacco: Never Alcohol Use Standard Drinks/Week Comments No 0 (1 standard drink = 0.6 oz pur e alcohol) Overall Financial Resource Strain ([facility]) Answe r Date Recorded How hard is it for you to pa y for the very basics like food, housing, medical care, and heating? Not very hard 08/17/2024 PHQ-2 Answer Date Recorded PHQ-2 Total Score 0 11/02/2024 [facility] of Occupat ional Health - Occupational Stress [...] No 11/02/2024 3:21 PM EDT Terri Martinez, RN documented in this encounter Miscellaneous Notes * Telephone Encounter - Monica Ibrahim MA - 11/28/2024 2:48 PM EDT Patient informed directly. Pharmacy changed for pt. * Telephone Encounter - Gypsy Villarreal - 11/28/2024 2:34 PM EDT Select the most appropriate reason for this telephone message: Relaying Information Relaying Information Who is Calling: [facility] and patient (Include pharmacy and caller's name) What information is the caller relaying:Calling, stating pt's medications are supposed to go to [facility], not [facility]. Further follow-up needed? Yes Return Method of Communication:Phone call Additional Information:N/A documented in this encounter Plan of Treatment [...] documented as of this encounter Care Teams Manager Film Relationship Specialty Start Date End Date Ar Vaca MD [address] [place] [place] [address] PCP - General Family Medicine 04/28/22 Kory Rodriguez MD [address] [facility] [address] [place] [address] Consulting Physician Internal Medicine-Nephrology 10/03/20 documented as of this encounter
--- OUTSIDE RECORDS SUMMARY | 2024-12-28 14:57 | XMS_ITS | Encounter Summary ---
Author Organization [place] [address] Care Team Providers Care Ski Binding Fitter And Repairer Name Role Phone Kory Rodriguez MD Unavailable [phone] Ar Vaca MD Primary Care Provider + Reason for Visit * Reason Onset Date Comments Refill 11/28/2024 Propranolol Medication Management 11/28/2024 Call pharm acy on refills from 11/02 they did not receive per patient Encounter Details Date Type Department Care Team (Late st Contact Info) Description 11/28/2024 Telephone [facility] [address] [place] [address] Ar Vaca MD [address] [place] [address] Refill (Propranolol ); Medication Management (Call pharmacy on refills from 11/02 they did not receive per patient ) Social History Tobacco Use Types Packs/Day Years [...] Date Recorded PHQ-2 Total Score 0 11/02/2024 [facility] [place] of Occupat ional Health - Occupational Stress [...] 2 times daily. 90 Tablet 1 11/28/2024 5 omeprazole (PRILOSEC) 40 mg Oral Capsule, Delayed Release(E.C.)Indicat ions:Gastroesophagea l reflux disease with esophagitis without hemorrhage Take 1 Capsule by mouth daily. 90 Capsule 1 11/28/2024 5 hydroxychloroquine (PLAQUENIL) 200 mg Oral TabletIndications:Er osive osteoarthritis of both hands Take 1 Tablet by mouth daily. 90 Tablet 1 11/28/2024 5 cyclobenzaprine (FLEXERIL) 10 mg Oral TabletIndications:Mu scle pain Take 1 Tablet by mouth 3 times daily. 270 Tablet 1 11/28/2024 5 documented in this encounter Miscellaneous Notes * Telephone Encounter - Yaneth Gonsalez RMA - 11/29/2024 12:30 PM EDT Pt notified * Telephone Encounter - Yaneth Gonsalez RMA - 11/28/2024 1:38 PM EDT Meds refilled LMTCB * Telephone Encounter - Jacki Troy - 11/28/2024 1:11 PM EDT Select the most appropriate reason for this telephone message: Medication Management/Problem Who is calling? Patient What medication(s) do you have concerns about: hydroxychloroquine (PLAQUENIL) 200 mg Oral Tablet 90 Tablet 1 11/02/2024 -- Sig - Route: Take 1 Tablet by mouth daily. - Oral propranoloL (INDERAL) 20 mg Oral Tablet -- -- 08/15/2024 -- Sig - Route: Take 1 Tablet by mouth 2 times daily. - Oral cyclobenzaprine (FLEXERIL) 10 mg Oral Tablet 270 Tablet 1 11/02/2024 -- Sig - Route: Take 1 Tablet by mouth 3 times daily. - Oral Sent to pharmacy as: cyclobenzaprine 10 mg tablet (FLEXERIL) omeprazole (PRILOSEC) 40 mg Oral Capsule, Delayed Release(E.C.) 90 Capsule 1 11/02/2024 -- Sig - Route: Take 1 Capsule by mouth daily. - Oral Prescribing provider: Dr. Vaca What are your concerns/request: Patient states the pharmacy did not received this Desired outcome: Other call pharmacy they have no record of the request from 11/02 and she needs a refill on propranolol Last appointment date: Pharmacy: [facility] Return Method of Communication: Phone Call Additional Information: she no longer takes levothyroxine documented in this encounter Plan of Treatment [...] Discontinue Reason Start Date End Da te propranoloL (INDERAL) 20 mg Oral TabletIndications:Essentia l hypertension Take 1 Tablet by mouth 2 times daily. Reorder 08/15/2024 11/28/2024 cyclobenzaprine (FLEXERIL) 10 mg Oral TabletIndications:Muscle pain Take 1 Tablet by mouth 3 times daily. Reorder 11/02/2024 11/28/2024 hydroxychloroquine (PLAQUENIL) 200 mg Oral TabletIndications:Erosive osteoarthritis of both hands Take 1 Tablet by mouth daily. Reorder 11/02/2024 11/28/2024 omeprazole (PRILOSEC) 40 mg Oral Capsule, Delayed Release(E.C.)Indications:G astroesophageal reflux disease with esophagitis without hemorrhage Take 1 Capsule by mouth daily. Reorder 11/02/2024 11/28/2024 documented as of this encounter Additional Health Concerns Assessment Noted Time A fall risk assessment has been complete d for the patient 11/02/2024 3:19 PM EDT documented as of this encounter Care Teams Ski Binding Fitter And Repairer Relationship Specialty Start Date End Date Ar Vaca MD [address] [place] [address] PCP - General Family Medicine 04/28/22 Kory Rodriguez MD [address] [facility] [address] [place] [phone] Consulting Physician Internal Medicine-Nephrology 10/03/20 documented as of this encounter
--- OUTSIDE RECORDS SUMMARY | 2024-12-28 14:57 | XMS_ITS | Encounter Summary ---
Author Organization [place] [address] Care Team Providers Care Retail Parts Pro Name Role Phone Kory Rodriguez MD Unavailable [phone] Ar Vaca MD Primary Care Provider + Encounter Details Date Type Department Care Team (Latest Contact Info) Description 12/01/2024 Results Follow-Up [facility] [address] [place] [address] Ar Vaac MD [address] [place] [address] HEMOGLOBIN A1C, COMPREHENSIVE METABOLIC PANEL, CBC WITH DIFF, Additional followed-up results: 2 Social History Tobacco Use Types Packs/Day Years [...] Date Recorded PHQ-2 Total Score 0 11/02/2024 [facility] [employer] of Occupat ional Health - Occupational Stress [...] Malone, CEASAR * Does this person have difficulty [...] Terri Martinez, RN documented in this encounter Plan of Treatment Scheduled Orders Name Type Priority Associated Diagnoses Orde r Schedule CBC WITH DIFF Lab Routine Leukocytosis, unspecified type 1 Occurrences starting 12/01/2024 until 12/01/2025 documented as of this encounter Goals Goal [...] as of this encounter Visit Diagnoses Diagnosis Leukocytosis, unspecified type- Primary documented in this encounter Additional Health Concerns Assessment Noted Time A fall risk assessment has been complete d for the patient 11/02/2024 3:19 PM EDT documented as of this encounter Care Teams Retail Parts Pro Relationship Specialty Start Date End Date Ar Vaca MD [address] [place] [address] PCP - General Family Medicine 04/28/22 Kory Rodriguez MD [address] [facility] [address] [place] [address] Consulting Physician Internal Medicine-Nephrology 10/03/20 documented as of this encounter
--- OUTSIDE RECORDS SUMMARY | 2024-12-28 14:57 | XMS_ITS | Encounter Summary ---
Author Organization [place] [address] Care Team Providers Care Hand Mica Plate Layer Name Role Phone Kory Rodriguez MD Unavailable [phone] Ar Vaca MD Primary Care Provider + Encounter Details Date Type Department Care Team (Late st Contact Info) Description 12/01/2024 Results Follow-Up [facility] [address] [place] [address] Ar Vaca MD [address] [place] [address] URINE CULTURE (NO STAIN) Social History Tobacco Use Types Packs/Day Years Used Date Smoking Tobacco: Never Smokeless Tobacco: Never Alcohol Use Standard Drinks/Week Comments No 0 (1 standard drink = 0.6 oz pur e alcohol) Overall Financial Resource Strain ([facility]) Answe r Date Recorded How hard is it for you to pa y for the very basics like food, housing, medical care, and heating? Not very hard 08/17/2024 PHQ-2 Answer Date Recorded PHQ-2 Total Score 0 11/02/2024 [facility] - Occupational Stress Questionnaire Answer Date [...] Terri Rosa, RN documented in this encounter Plan of [...] documented as of this encounter Care Teams Hand Mica Plate Layer Relationship Specialty Start Date End Date Ar Vaca MD [address] [place] [phone] PCP - General Family Medicine 04/28/22 Kory Rodriguez MD [address] [facility] [address] [place] [phone] Consulting Physician Internal Medicine-Nephrology 10/03/20 documented as of this encounter
--- OUTSIDE RECORDS SUMMARY | 2024-12-28 14:58 | XMS_ITS | Clinical Summary ---
Author Organization [facility] Address [address] [place] [address] Care Team Providers Care Pv Design Engineer Name Role Phone Pcp, No Primary Care Provider Unavailabl e Cassy Vuong DMD Unavailable [phone] Caty Gonzalez Unavailable Unavailable Allergies Active Allergy Reactions Criticality Noted Date Comments Penicillins Nausea 05/25/2023 Medications ASPIRIN 81 PO Take 81 mg by mouth 1 (one) time each day. Active allopurinol (Zyloprim) 100 MG tabletIndication s:Gout Take 1 tablet (100 mg) by mouth 2 (two) times a day. 09/30/2022 Active Biotin 5 MG tablet dispersible Take 1 tablet by mouth 1 (one) time each day. Active levothyroxine (Synthroid, Levoxyl) 75 MCG tabletIndication s:Hypothyroidism Take 1 tablet (75 mcg) by mouth 1 (one) time each day. 01/12/2023 Active lisinopril 10 MG tabletIndication s:Migraine Take 1 tablet (10 mg) by mouth 1 (one) time each day. 03/31/2023 Active loratadine (Claritin) 10 MG tablet Take 1 tablet (10 mg) by mouth if needed. 01/28/2023 Active Multiple Vitamins-Mineral s (One-A-Day VitaCraves) chewable tablet Chew 1 tablet 1 (one) time each day. Active omeprazole (PriLOSEC) [address] Karen ns:Gastroesophag eal Reflux Disease Take 1 capsule (40 mg) by mouth 1 (one) time each day. 01/12/2023 Active oxyCODONE-acetam inophen (Percocet) 5-325 MG tablet Take by mouth every 6 (six) hours if needed. Active promethazine (Phenergan) 25 MG tabletIndication s:Nausea and Vomiting if needed. 03/03/2023 Active propranolol (Inderal) 20 MG tablet Take 1 tablet (20 mg) by mouth 2 (two) times a day. 03/12/2023 Active Active Problems No known active problems Family History Medical History Relation Name Comments enlarged heart Father Relation Name Status Comments Father Social History Tobacco Use Types Packs/Day Years Used Date Smoking Tobacco: Never Smokeless Tobacco: Never Tobacco Cessation:Counseling Given: Not Answered Alcohol Use Standard Drinks/Week Comments Yes 1 (1 standard drink = 0.6 oz pur e alcohol) Comments Unknown Sex and Gender Information Value Date Recorded Sex Assigned at Not on file Legal Sex Female 8:00 PM EDT Gender Identity Not on file Sexual Orientation Not on file Last Filed Vital Signs Vital Sign Reading Time Taken Comments Blood Pressure 141/83 06/12/2024 9:08 AM EST Pulse 67 06/12/2024 9:08 AM EST Temperature - - Respiratory Rate - - Oxygen Saturation - - Inhaled Oxygen Concentration - - Weight - - Height - - Body Mass Index - - Plan of Treatment Health Maintenance Due Date Last Done Comments Dental Prophylaxis 1955 Dental X-Ray: Bitewings 1955 [facility]-Depression Screening 1955 [facility]-/Child/Adol SDOH Screenings 1955 [id number] Vaccine (#1) 12/09/1960 [facility]- SDOH Screenings 12/09/1973 [facility]-Adult SDOH Screenings 12/09/1973 CT Colonography 12/09/2000 Colonoscopy 12/09/2000 FIT-DNA 12/09/2000 FIT 12/09/2000 FOBT 12/09/2000 Sigmoidoscopy 12/09/2000 [facility]-Colorectal Cancer Screening 12/09/2000 [facility]-Bone Density Scan 11/05/2012 11/05/2010 [facility]-RSV Vaccine: 60+ Years or (1 - Risk 60-74 years 1-dose series) 2015 [facility]-DTaP,Tdap,and Td Vaccines (2 - Td or Tdap) 07/19/2018 07/19/2008 [facility]-Pneumococcal Vaccine: 50+ Years (2 of 2 - PCV) 01/14/2020 01/13/2019, 07/19/2008 [facility]-Breast Cancer Screening 04/06/202003/19, 04/06/2018, 06/20/2014 Dental Oral Exam 11/24/2023 05/25/2023 [facility] Annual Wellness (AWV) 08/19/2024 08/19/2023 Dental X-Ray: Full Mouth 08/06/2026 08/05/2023 [facility]-Hepatitis C Screening Completed 03/02/2017 [facility]-Zoster Vaccines Completed 05/14/2023, [facility]-Influenza Vaccine Completed 05/11/2024 , 04/15/2023, 04/22/2020, Additional history exists HPV Vaccines Aged Out No longer eligi ble based on patient's age to complete this topic [facility]-HIB Vaccines Aged Out No longer e ligible based on patient's age to complete this topic [facility]-Hepatitis A Vaccines Aged Out No longer eligible based on patient's age to complete this topic [facility]-IPV Vaccines Aged Out No longer e ligible based on patient's age to complete this topic [facility]-Rotavirus Vaccines Aged Out No lo nger eligible based on patient's age to complete this topic Procedures Procedure Name Priority Date/Time Associated Diagnosis Comments PANORAMIC RADIOGRAPHIC IMAGE Routine 08/05/2023 2:00 PM EST Encounter for dental examination Edentulism COMPREHENSIVE ORAL EVALUATION - NEW OR ESTABLISHED PATIENT Routine 05/25/2023 1:30 PM EST Encounter for dental examination Edentulism from Last 3 Months or Most Recently Relevant to Health Maintenance Insurance [facility] MEDICARE Care Teams Pv Design Engineer Relationship Specialty Start Date End Date Pcp, No [address] [place] [address] PCP - General Family Medicine 05/25/23 Cassy Vuong, DMD [address] [facility] [address] [place] [address] Dentist Dental Flask Pusher 05/25/23 Caty Gonzalez Dental Student Dental Flask Pusher 09/02/23
== END 2024-12-28 23:59 | disposition home or self-care (01) ==
PROVIDERS: PCP Family Medicine; Visit Provider Nurse Practitioner Family
DX: M51.16 Intervertebral disc disorders with radiculopathy, lumbar region (principal); M50.120 Mid-cervical disc disorder, unspecified level; Z79.891 Long term (current) use of opiate analgesic
CPT/HCPCS: 99212; G0463

== ENCOUNTER 2025-01-29 13:46 | Outpatient (POV) | payer MEDICARE, SELFPAY ==
--- OUTSIDE RECORDS SUMMARY | 2019-01-27 16:00 | XMS_ITS | Encounter Summary ---
Author Organization [place] [place] [address] Care Team Providers Care Hadoop Administrator Name Role Phone Clemente Bass DO, Viral Primary Care Provider Encounter Details Date Type Department Care Team (Latest Contact Info) Description 01/27/2019 4:00 PM EDT Hospital Encounter [facility] [address] [place] [address] Left without seen Social History Tobacco Use Types Packs/Day Years Used Date Smoking Tobacco: Never Smokeless Tobacco: Never Alcohol Use Standard Drinks/Week Comments No 0 (1 standard drink = 0.6 oz pur e alcohol) Overall Financial Resource Strain (CARDIA) Answe r Date Recorded How hard is it for you to pa y for the very basics like food, housing, medical care, and heating? Not very hard 08/17/2024 PHQ-2 Answer Date Recorded PHQ-2 Total Score 0 11/02/2024 [facility] - Occupational Stress Questionnaire Answer Date Recorded Do you feel stress - tense, restless, nervous, or anxious, or unable to sleep at night because your mind is troubled all the time - these days? Not at all 08/17/2024 Exercise Vital Sign Answer Date Recorde d On average, how many days pe r week do you engage in moderate to strenuous exercise (like a brisk walk)? 0 days 08/17/2024 On average, how many minutes do you engage in exercise at this level? 0 min 08/17/2024 Hunger Vital Sign Answer Date Recorded Within the past 12 months, y ou worried that your food would run out before you got the money to buy more. Never true 08/17/19 25 Within the past 12 months, t he food you bought just didn't last and you didn't have money to get more. Never true 08/17/2024 [facility] - Transportation Answer Date Re corded In the past 12 months, has l ack of transportation kept you from medical appointments or from getting medications? No 07/21 In the past 12 months, has l ack of transportation kept you from meetings, work, or from getting things needed for daily living? No 08/17/2024 Comments No Sex and Gender Information Value Date Recorded Sex Assigned at Not on file Legal Sex Female 8:05 AM EDT Gender Identity Not on file Sexual Orientation Not on file COVID-19 Exposure Response Date Recorded In the last 10 days, have yo u been in contact with someone who was confirmed or suspected to have Coronavirus/COVID-19? No / Unsure 08/28/2022 9:58 AM EST documented as of this encounter Functional Status * Cognitive and Functional Status Question Answer Date of Assessment Author Is the person deaf or does he/she have serious difficulty hearing? No 11/02/2024 3:21 PM EDTerri Beltran RN Is the person blind or does he/she have serious difficulty seeing even when wearing glasses? No 11/02/2024 3:21 PM Terri Malone RN Does this person have seriou s difficulty walking or climbing stairs? No 11/02/2024 3:21 PM Terri Malone RN Does this person have difficulty dressing or bathing? No 11/02/2024 3:21 PM Terri Malone RN * Is the person deaf or does he/she have serious difficulty hearing? Answer Date of Assessment Author No 08/05/2018 3:59 PM EST Bragg RMA * Is the person blind or does he/she have serious difficulty seeing even when wearing glasses? Answer Date of Assessment Author No 08/05/2018 3:59 PM EST Bragg, RMA * Does this person have serious difficulty walking or climbing stairs? Answer Date of Assessment Author No 08/05/2018 3:59 PM EST Bragg RMA * Does this person have difficulty dressing or bathing? Answer Date of Assessment Author No 08/05/2018 3:59 PM Triana, RMKaren * Because of a physical, mental or emotional condition, does this person have difficulty doing errands alone such as visiting a doctor's office or shopping? Answer Date of Assessment Author No 08/05/2018 3:59 PM Triana RMA * PHQ-9 Total Score Answer Date of Assessment Author 0 11/02/2024 3:21 PM EDT Terri Martinez, CEASAR * Question Answer Date of Assessment Author Little interest or pleasure in doing things 0 11/02/2024 3:21 PM EDT Terri Martinez RN Feeling down, depressed, or hopeless 0 11/02/2024 3:21 PM EDT Terri Martinez RN PHQ-2 Total Score 0 11/02/2024 3:21 PM EDT Terri Martinez RN * Question Answer Date of Assessment Author Feeling Nervous, Anxious, or on Edge 0 11/02/2024 3:21 PM EDT Terri Martinez RN Not Being Able to Stop or Control Worrying 0 11/02/2024 3:21 PM VERONICAT Terri Martinez RN Worrying too Much About Different Things 0 11/02/2024 3:21 PM VERONICAT Terri Martinez RN Trouble Relaxing 0 11/02/2024 3:21 PM Terri Long RN Being so Restless That it is Hard to Sit Still 0 11/02/2024 3:21 PM Terri Malone RN Becoming Easily Annoyed or Irritable 0 11/02/2024 3:21 PM Terri Malone RN Feeling Afraid as if Something Awful Might Happen 0 11/02/2024 3:21 PM Terri Malone RN WILLIE-7 Total Score 0 11/02/2024 3:21 PM Terri Malone RN documented as of this encounter Mental Status * Cognitive and Functional Status Question Answer Entry Date Author Because of a physical, menta l or emotional condition, does this person have difficulty doing errands alone such as visiting a doctor's office or shopping? No 11/02/2024 3:21 PM EDT Terri Martinez RN Because of a physical, menta l or emotional condition, does this person have serious difficulty concentrating, remembering or making decisions? No 11/02/2024 3:21 PM EDT Terri Martinez RN * Because of a physical, mental or emotional condition, does this person have serious difficulty concentrating, remembering or making decisions? Answer Entry Date Author No 08/05/2018 3:59 PM EST Bragg RMA documented in this encounter Plan of Treatment Not on file documented as of this encounter Goals Goal Patient Goal Type Associated Problems Recent Progress Patient-Stated? Author Blood Pressure < 140/90 Blood Pressure 126/72(2024 2:47 PM EDT) No Ar Vaca MD BMI (Calculated) < 30 General 43(11/02/2024 3:20 PM EDT) No Sandy Chen LPN Maintain a healthy diet, exercise regularly and maintain an ideal body weight General No Senait Martínez RMA HEMOGLOBIN A1C < 7.0 Result Component 5.8( 5 1:33 PM EDT) No Sandy Chen LPN documented as of this encounter Visit Diagnoses Not on filedocumented in this encounter Additional Health Concerns Infection Onset Date Last Indicated Resolved Time R/O COVID-19 02/13/2020 02/13/2020 02/15/2020 5:03 PM EDT R/O COVID-19 08/23/2021 08/23/2021 08/24/2021 5:58 PM EST COVID-19 08/23/2021 08/23/2021 09/12/2021 10:1 2 PM EST documented as of this encounter Care Teams Hadoop Administrator Relationship Specialty Start Date End Date Jose Cornejo DO [address] [place] [id number] PCP - General Family Medicine 06/13/13 04/27/22 documented as of this encounter
--- OUTSIDE RECORDS SUMMARY | 2024-11-30 13:20 | XMS_ITS | Encounter Summary ---
Author Organization [place] [address] Care Team Providers Care Corporate Development Intern Name Role Phone Kory Rodriguez MD Unavailable [phone] Ar Vaca MD Primary Care Provider + Reason for Referral * Medication Prior Authorization - Authorized Specialty Diagnoses / Procedures Referred By Contac t Referred To Contact Diagnoses Morbid obesity with body mass index of 40.0-49.9 (HCC) Ar Vaca MD [address] [place] [address] Phone: tel: fax: Referral ID Status Reason Start Date Expiration Date V isits Requested Visits Authorized [id number] Authorized 10/17/2024 12/04/2025 1 1 Reason for Visit * Reason Comments Oral Pain Urinary Frequency Encounter Details Date Type Department Care Team (Late st Contact Info) Description 11/30/2024 1:20 PM EDT Office Visit [facility] [address] [place] [address] Ar Vaca MD [address] [place] [address] Thrush (Primary Dx); Urinary frequency; [...] Date Recorded PHQ-2 Total Score 0 11/02/2024 [facility] of Occupat ional Health - Occupational Stress [...] Refills Last Filled Start Date End Date lidocaine 2 % MM SolutionIndication s:Thrush Take 5 mL by mouth every 2 hours as needed for Pain. 200 mL 11/30/2024 semaglutide 0.25 mg or 0.5 mg (2 mg/3 mL) SubQ Pen InjectorIndication s:Morbid obesity with body mass index of 40.0-49.9 (HCC) Inject 0.25 mg under the skin once a week for 28 days, THEN 0.5 mg once a week for 14 days. 3 mL 11/30/2024 5 nitrofurantoin, macrocrystal-monoh ydrate, (MACROBID) 100 mg Oral [...] ORDER BUFFY Final Result Performing Organization Address [facility]/ZIP Co de Phone Number [place] [address] [place] [address] * URINE CULTURE (NO STAIN) (11/30/2024 1:03 PM EDT) Culture Multiple bacterial species isolated from urine consistent with urogenital commensal organisms. 12/02/2024 7:23 AM EDT [facility] Urine STRUCTURE OF URINARY TRACT PROPER / Unknown 11/30/2024 1:03 PM EDT 11/30/2024 1:03 PM EDT Ar Vaca MD MICROBIOLOGY - GENERAL O RDERABLES Final Result [facility] [address] [facility] , [place] [address] documented in this encounter Visit [...] documented as of this encounter Care Teams Corporate Development Intern Relationship Specialty Start Date End Date Ar Vaca MD [address] [place] [address] PCP - General Family Medicine 04/28/22 Kory Rodriguez MD [address] [facility] [address] [place] [address] Consulting Physician Internal Medicine-Nephrology 10/03/20 documented as of this encounter
--- OUTSIDE RECORDS SUMMARY | 2024-11-30 13:32 | XMS_ITS | Encounter Summary ---
Author Organization [place] [address] Care Team Providers Care Plate Printer Name Role Phone Kory Rodriguez MD Unavailable [phone] Ar Vaca MD Primary Care Provider + Encounter Details Date Type Department Care Team (Latest Contact Info) Description 11/30/2024 1:32 PM EDT - 11/30/2024 11:59 PM EDT Hospital Encounter [facility] [place] [id number] Prediabetes; Medicare annual wellness visit, subsequent; Hypertension; Acquired hypothyroidism; Elevated uric acid in blood Discharge Disposition: Home or Self Care Social History Tobacco Use Types Packs/Day Years [...] Date Recorded PHQ-2 Total Score 0 11/02/2024 [facility] [place] of Occupat ional Health - Occupational Stress [...] on file documented as of this encounter Functional Status * Is the person deaf or does he/she have serious difficulty hearing? Answer Date of Assessment Author No 11/02/2024 3:21 PM Terri Malone RN * Is the person blind or does he/she have serious difficulty seeing even when wearing glasses? Answer Date of Assessment Author No 11/02/2024 3:21 PM Terri Malone RN * Does this person have serious difficulty walking or climbing stairs? Answer Date of Assessment Author No 11/02/2024 3:21 PM Terri Malone RN * Does this person have difficulty dressing or bathing? Answer Date of Assessment Author No 11/02/2024 3:21 PM Terri Malone RN * Because of a physical, mental [...] Terri Malone RN documented in this encounter Medications at Time of Discharge allopurinoL (ZYLOPRIM) 100 mg Oral TabletIndications:El evated uric acid in blood Take 1 Tablet by mouth 2 times daily. 180 Tablet 1 11/02/2024 aspirin 81 mg tablet Take 81 mg by mouth daily. biotin 5,000 mcg Oral Tablet, Rapid Dissolve Take 1 Tab by mouth daily. cyclobenzaprine (FLEXERIL) 10 mg Oral TabletIndications:Mu scle pain Take 1 Tablet by mouth 3 times daily. 270 Tablet 1 11/28/2024 hydroxychloroquine (PLAQUENIL) 200 mg Oral TabletIndications:Er osive osteoarthritis of both hands Take 1 Tablet by mouth daily. 90 Tablet 1 11/28/2024 ketotifen (ZADITOR) 0.025 % (0.035 %) Opht DropsIndications:All ergic conjunctivitis, bilateral Place 1 Drop into both eyes 2 times daily. 10 mL 5 2023 LEVOthyroxine (SYNTHROID) 75 mcg Oral TabletIndications:Ac quired hypothyroidism Take 1 Tablet by mouth daily. 90 Tablet 1 11/02/2024 lidocaine 2 % MM SolutionIndications: Thrush Take 5 mL by mouth every 2 hours as needed for Pain. 200 mL 11/30/2024 multivit with min-folic acid 200 mcg Oral Tablet, Chewable Take 1 Tab by mouth daily. omeprazole (PRILOSEC) 40 mg Oral Capsule, Delayed Release(E.C.)Indicat ions:Gastroesophagea l reflux disease with esophagitis without hemorrhage Take 1 Capsule by mouth daily. 90 Capsule 1 11/28/2024 oxyCODONE-acetaminop hen (PERCOCET) 5-325 mg Oral Tablet Take by mouth every 6 hours as needed for Pain. propranoloL (INDERAL) 20 mg Oral TabletIndications:Es sential hypertension Take 1 Tablet by mouth 2 times daily. 90 Tablet 1 11/28/2024 nystatin (MYCOSTATIN) 100,000 unit/mL Oral SuspensionIndication s:Thrush Take 5 mL by mouth 4 times daily for 14 days. 280 mL 11/30/2024 promethazine (PHENERGAN) 25 mg Oral TabletIndications:Na usea Take 1 Tablet by mouth every 6 hours as needed. for nausea 100 Tablet 1 11/02/2024 semaglutide 0.25 mg or 0.5 mg (2 mg/3 mL) SubQ Pen InjectorIndications: Morbid obesity with body mass index of 40.0-49.9 (HCC) Inject 0.25 mg under the skin once a week for 28 days, THEN 0.5 mg once a week for 14 days. 3 mL 11/30/2024 documented as of this encounter Discharge Disposition Disposition Code Departure Means Destination Home or Self Care documented in this encounter Plan of Treatment [...] Procedure Name Priority Date/Time Associated Diagnosis Comments CBC WITH DIFF Routine 11/30/2024 1:33 PM EDT Medicare annual wellness visit, subsequent URIC ACID Routine 11/30/2024 1:33 PM EDT Elevated uric acid in blood THYROID STIMULATING HORMONE Routine 11/30/2024 1:33 PM EDT Acquired hypothyroidism HEMOGLOBIN A1C Routine 11/30/2024 1:33 PM EDT Prediabetes COMPREHENSIVE METABOLIC PANEL Routine 11/30/2024 1:33 PM EDT Medicare annual wellness visit, subsequent Hypertension documented in this encounter Results * URIC ACID (11/30/2024 1:33 PM EDT) Uric Acid 2.7 2.4 - 5.7 mg/dL 11/30/2024 8:56 PM EDT [facility] Blood VENOUS BLOOD / Unknown Venipuncture / Unknown 11/30/2024 1:33 PM EDT 11/30/2024 1:33 PM EDT Ar Vaca MD CHEMISTRY ORDERABLES Fin al Result Performing Organization Address [facility]/ZIP Co de Phone Number [facility], [facility] [address] [facility] , [address] [place] [phone] * THYROID STIMULATING HORMONE (11/30/2024 1:33 PM EDT) Pathologist [facility] [place] TSH 4.020 0.270 - 4.200 mcIU/mL 11/30/2024 8:56 PM EDT [facility], [facility] Blood VENOUS BLOOD / Unknown Venipuncture / Unknown 11/30/2024 1:33 PM EDT 11/30/2024 1:33 PM EDT Narrative [facility], [facility] - 11/30/2024 8:56 PM EDT Ingestion of gerald doses of biotin (>5 mg/day) taken within 8 hours of drawing blood sample can interfere with this immunoassay test. Ar Vaca MD CHEMISTRY ORDERABLES Fin al Result Performing Organization Address [facility] de Phone Number [facility] [address] [facility] , [place] [address] * (ABNORMAL) CBC WITH DIFF (11/30/2024 1:33 PM EDT) WBC 12.1(H) 3.7 - 10.3 x10(3)/mcL 11/30/2024 7:46 PM EDT [facility], [facility] RBC 4.42 3.90 - 5.20 x10(6)/mcL 11/30/2024 7:46 PM EDT [facility], [facility] Hgb 12.6 11.2 - 15.7 g/dL 11/30/2024 7:46 PM EDT [facility], [facility] Hct 40.9 34.0 - 45.0 % 11/30/2024 7:46 PM EDT [facility] MCV 92.5 80.0 - 100.0 fL 11/30/2024 7:46 PM EDT [facility] MCH 28.5 26.0 - 34.0 pg 11/30/2024 7:46 PM EDT [facility] MCHC 30.8 30.7 - 35.5 g/dL 11/30/2024 7:46 PM EDT [facility] RDW 14.6 <=14.9 % 11/30/2024 7:46 PM EDT [facility] Platelet 296 155 - 369 x10(3)/mcL 11/30/2024 7:46 PM EDT [facility] MPV 11.2 8.8 - 12.5 fL 11/30/2024 7:46 PM EDT [facility] Neut Percent 67.7 % 11/30/2024 7:46 PM EDT [facility] Comment:Neutrophils equals s egs plus bands Imm Gran% 0.5 % 11/30/2024 7:46 PM EDT [facility] Comment:Automated count of m etamyelocytes, myelocytes and promyelocytes. Lymph Percent 23.6 % 11/30/2024 7:46 PM EDT [facility] [place] Percent 7.9 % 11/30/2024 7:46 PM EDT [facility] Eos Percent 0.1 % 11/30/2024 7:46 PM EDT [facility] Baso Percent 0.2 % 11/30/2024 7:46 PM EDT [facility] Neut # 8.2(H) 1.6 - 6.1 x10(3)/mcL 11/30/2024 7:46 PM EDT [facility] Comment:Neutrophils equals s egs plus bands IMMGRAN# 0.1 0.0 - 0.1 x10(3)/mcL 11/30/2024 7:46 PM EDT [facility] Comment:Automated count of m etamyelocytes, myelocytes and promyelocytes. An absolute IG <0.1 is reported as 0.0. Lymph # 2.9 1.2 - 3.9 x10(3)/mcL 11/30/2024 7:46 PM EDT [facility] [place] # 1.0(H) 0.3 - 0.9 x10(3)/mcL 11/30/2024 7:46 PM EDT [facility] Eos# 0.0 0.0 - 0.5 x10(3)/mcL 11/30/2024 7:46 PM EDT [facility] Baso # 0.0 0.0 - 0.1 x10(3)/mcL 11/30/2024 7:46 PM EDT [facility] Blood VENOUS BLOOD / Unknown Venipuncture / Unknown 11/30/2024 1:33 PM EDT 11/30/2024 1:33 PM EDT us Ar Vaca MD HEMATOLOGY ORDERABLES Fi nal Result [facility] [address] [facility] [address], [place] [address] * (ABNORMAL) COMPREHENSIVE METABOLIC PANEL (11/30/2024 1:33 PM EDT) Sodium 141 136 - 145 mmol/L 11/30/2024 8:56 PM EDT [facility] Potassium 5.0 3.5 - 5.0 mmol/L 11/30/2024 8:56 PM EDT [facility] Chloride 105 98 - 107 mmol/L 11/30/2024 8:56 PM EDT [facility] Total CO2 26 22 - 29 mmol/L 11/30/2024 8:56 PM EDT [facility] Anion Gap 10 7 - 16 mmol/L 11/30/2024 8:56 PM EDT [facility] Calcium 9.5 8.8 - 10.4 mg/dL 11/30/2024 8:56 PM EDT [facility] Glucose Lvl 103(H) 70 - 99 mg/dL 11/30/2024 8:56 PM EDT [facility] BUN 16 8 - 23 mg/dL 11/30/2024 8:56 PM EDT [facility] Creatinine 0.88 0.51 - 1.30 mg/dL 11/30/2024 8:56 PM EDT [facility] Albumin 3.9 3.2 - 4.6 gm/dL 11/30/2024 8:56 PM EDT [facility], [facility] Total Protein 6.7 6.4 - 8.3 gm/dL 11/30/2024 8:56 PM EDT [facility], [facility] Bili Total 0.3 0.2 - 1.3 mg/dL 11/30/2024 8:56 PM EDT [facility], [facility] ALT 10 <=41 U/L 11/30/2024 8:56 PM EDT [facility], [facility] AST 15 <=40 U/L 11/30/2024 8:56 PM EDT [facility], [facility] Alk Phos 81 36 - 123 U/L 11/30/2024 8:56 PM EDT [facility], [facility] eGFR (CKD-EPIcr 2020) 71 >=60 mL/min/1.7 3 m2 11/30/2024 8:56 PM EDT [facility], [facility] Comment:Estimated GFR was ca lculated using the CKD-EPIcr (2020) equation refit without race. The equation is recommended by the National Kidney Foundation - [place] [employer] of Nephrology Task Force. Blood VENOUS BLOOD / Unknown Venipuncture / Unknown 11/30/2024 1:33 PM EDT 11/30/2024 1:33 PM EDT us Ar Vaca MD CHEMISTRY ORDERABLES Fin al Result [facility], [facility] [address] [facility] , [address] [place] [id number] * (ABNORMAL) HEMOGLOBIN A1C (11/30/2024 1:33 PM EDT) Hgb A1C 5.8(H) 4.2 - 5.6 % 11/30/2024 8:08 PM EDT [facility] LAB [facility], [facility] Est. Avg Glucose 120 mg/dL 11/30/2024 8:08 PM EDT [facility], [facility] Blood VENOUS BLOOD / Unknown Venipuncture / Unknown 11/30/2024 1:33 PM EDT 11/30/2024 1:33 PM EDT Narrative [facility] - 11/30/2024 8:08 PM EDT REFERENCE RANGE: Normal: 4.0-5.6% Pre-diabetes: 5.7-6.4% Provisional diagnosis of diabetes: >6.4% Hgb F>10% and anything which shortens red cell survival, such as hemolytic anemia, or unstable hemoglobin variants such as HbSS, HbSC, or HbCC, will lower the HbA1c value associated with a given level of glycemic control. Ar Vaca MD CHEMISTRY ORDERABLES [facility] al Result [facility] [address] [facility] , [address] [place], [place] [phone] documented in this encounter Visit Diagnoses Diagnosis Prediabetes Other abnormal glucose Medicare annual wellness visit, subsequent Routine general medical examination at a [facility] care facility Hypertension Unspecified essential hypertension Acquired hypothyroidism Unspecified hypothyroidism Elevated uric acid in blood Other abnormal blood chemistry documented in this encounter Additional Health Concerns Assessment Noted Time A fall risk assessment has been complete d for the patient 11/02/2024 3:19 PM EDT documented as of this encounter Care Teams Plate Printer Relationship Specialty Start Date End Date Ar Vaca MD [address] [place] [address] PCP - General Family Medicine 04/28/22 Kory Rodriguez MD [address] [place] [address] Consulting Physician Internal Medicine-Nephrology 10/03/20 documented as of this encounter
--- OUTSIDE RECORDS SUMMARY | 2024-12-06 13:30 | XMS_ITS | Encounter Summary ---
Author Organization [place] [address] Care Team Providers Care Casey Saw Operator Name Role Phone Kory Rodriguez MD Unavailable Ar Vaca MD Primary Care Provider + Reason for Visit * Reason Comments Rash Encounter Details Date Type Department Care Team (Late st Contact Info) Description 12/06/2024 1:30 PM EDT Office Visit [facility] [place] [address] [place] [address] Karen Gonzalez MD [address] [place] [address] Rash (Primary Dx) Social History Tobacco Use Types Packs/Day Years [...] Date Recorded PHQ-2 Total Score 0 11/02/2024 [facility] [place] of Occupat ional Health - Occupational Stress [...] Sign Reading Time Taken Comments Blood Pressure 132/68 12/06/2024 12:59 PM EDT Pulse 55 12/06/2024 12:59 PM EDT Temperature 37 C (98.6 F) 12/06/2024 12:59 PM EDT Respiratory Rate - - Oxygen Saturation 97% 12/06/2024 12:59 PM EDT Inhaled Oxygen Concentration - - Weight - - Height 162.6 cm (5' 4 ) 12/06/2024 12:59 PM EDT Body Mass Index - - documented in this encounter Functional Status * Is the person deaf or does he/she have serious difficulty hearing? Answer Date of Assessment Author No 11/02/2024 3:21 PM EDT Terri Martinez, CEASAR * Is the person blind or does he/she have serious difficulty seeing even when wearing glasses? Answer Date of Assessment Author No 11/02/2024 3:21 PM EDT Terri Martinez, CEASAR * Does this person have serious difficulty [...] 11/02/2024 3:21 PM EDT Terri Martinez RN documented as of this encounter Mental Status * Because of a physical, mental or emotional condition, does this person have serious difficulty concentrating, remembering or making decisions? Answer Entry Date Author No 11/02/2024 3:21 PM EDT Terri Martinez RN documented in this encounter Ordered Prescriptions Prescription Sig Dispense Quantity Refills Last Filled Start Date End Date triamcinolone (KENALOG) 0.1 % Top CreamIndications:R ghada Apply topically 2 times daily for 10 days. 80 g 12/06/2024 documented in this encounter Progress Notes * Karen Gonzalez MD - 12/06/2024 1:30 PM EDT Vitals: 12/06/24 1259 BP: 132/68 Pulse: 55 Temp: 98.6 ??F (37 ??C) TempSrc: Temporal SpO2: 97% Height: 5' 4 (1.626 m) Body mass index is 42.91 kg/m??. SUBJECTIVE: Chief Complaint Patient presents with ??? Rash HPI: Rash to L forearm area Underneath her R arm as well Was given macrobid, liquid lidocaine and nystatin 11/30 She is ? If the macrobid caused the rash She started with rash x3 days ago No difficulty breathing Did feel like oral swelling prior to her visit Urine culture was negative Review of Systems Constitutional: Negative for activity change, appetite change, fatigue and fever. Respiratory: Negative for chest tightness, shortness of breath and wheezing. Cardiovascular: Negative for chest pain and leg swelling. Skin: Positive for color change and rash. Neurological: Negative for dizziness and headaches. OBJECTIVE: Physical Exam Vitals reviewed. Constitutional: Appearance: She is well-developed. HENT: Head: Normocephalic. Mouth/Throat: Comments: OP widely patent. No lip or tongue edema. No white patches Eyes: Conjunctiva/sclera: Conjunctivae normal. Pupils: Pupils are equal, round, and reactive to light. Cardiovascular: Rate and Rhythm: Normal rate and regular rhythm. Heart sounds: Normal heart sounds. Pulmonary: Effort: Pulmonary effort is normal. Breath sounds: Normal breath sounds. Abdominal: Palpations: Abdomen is soft. Tenderness: There is no abdominal tenderness. Skin: Findings: Rash (macular erythema patches left upper arm and right axilla. torso spared) present. Assessment & Plan Rash Macrobid therapy completed = last dose 12/05 Recommend topical steroid and oral antihistamine Orders: ??? triamcinolone (KENALOG) 0.1 % Top Cream; Apply topically 2 times daily for 10 days. documented in this encounter Plan of Treatment [...] documented as of this encounter Visit Diagnoses Diagnosis Rash- Primary Rash and other nonspecific skin eruption documented in this encounter Discontinued Medications Medication Sig Discontinue Reason Start Date End Da te nitrofurantoin, macrocrystal-monohydra te, (MACROBID) 100 mg Oral CapsuleIndications:Acu te recurrent cystitis Take 1 Capsule by mouth 2 times daily for 7 days. DELETE-Therapy completed 11/30/2024 12/06/2024 documented as of this encounter Additional Health Concerns Assessment Noted Time A fall risk assessment has been complete d for the patient 11/02/2024 3:19 PM EDT documented as of this encounter Care Teams Casey Saw Operator Relationship Specialty Start Date End Date Ar Vaca MD [address] [place] [id number] PCP - General Family Medicine 04/28/22 Koyr Rodriguez MD [address] [address] Consulting Physician Internal Medicine-Nephrology 10/03/20 documented as of this encounter
--- OUTSIDE RECORDS SUMMARY | 2024-12-07 12:00 | XMS_ITS | Encounter Summary ---
Author Organization [place] [address] Care Team Providers Care Concrete Finishing Machine Operator Name Role Phone Kory Rodriguez MD Unavailable [phone] Ar Vaca MD Primary Care Provider + Reason for Visit * Reason Comments Care Management - Face To Face Care Transition Encounter Details Date Type Department Care Team (Latest Contact Info) Description 12/07/2024 12:00 PM EDT Clinical Support [address] [address] Darling Guerra, RN Prediabetes (Primary Dx) Social History Tobacco Use Types [...] Date Recorded PHQ-2 Total Score 0 11/02/2024 [facility] [place] of Occupat ional Health - Occupational Stress [...] Terri Malone RN documented in this encounter Progress Notes * Darling Guerra RN - 12/07/2024 12:00 PM EDT Assessment: Patient presents today for Medication Education OCCvisitType: Face to Face Concerns: 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 Is now switching to Ozempic. Orders updated to the patient assistance program, but patient wanted a sample to get her started Office Gravity Meter Operator (OCC) reviewed administration education with patient Patient verbalized understanding. Denies any other needs at this time. Education/handouts: Education: Educated patient on: Ozempic Purpose, Role in Weight Loss & Diabetes, Mechanism of Action GLP-1, Gastric Emptying Dosing & Titration Side Effects Including nausea, vomiting, abdominal pain, heartburn, constipation or diarrhea, a feeling of fullness, etc. Alcohol Side Effects/Interaction Warning Avoiding Side Effects Eat at least 3 square meals daily Avoid fried, greasy, or sweet foods If having many side effects, eat bland, low-fat foods or foods that contain water like soups or gelatin Avoid lying down after you eat Eat slowly Hydrate! Drink clear or ice cold drinks Report heartburn frequency &/or unmanageable side effects to your doctor Insurance Coverage Cost without Coverage / before hitting Deductible Copay Card / Patient Assistance Injection Administration Wash hands Choose injection site From the backs of upper arms, tops of thighs, or abdominal tissue staying at least 2 inches from naval and avoiding stretch freeman and scar tissue (including tattoos) Rotate injection sites Clean site with alcohol pad Remove pen cap Inspect pen Verify pen is not , medication is clear and free of clumps or cloudiness, etc. Attach pen needle Remove paper lid from pen needle plastic container Screw pen needle onto kwikpen Remove outer plastic container Remove smaller plastic needle cap DO NOT REUSE NEEDLES Dial pen to correct dose using the turning dose wad blanking press adjuster at the back of the pen You will see through the dose window a zero, continue to dial until you see your dose appear in thewindow 0.25mg once weekly for four weeks 0.5mg once weekly thereafter Press pen straight into selected site at a 90 degree angle Press injection button down and hold in place for 10 seconds As you hold down the injection button, you may hear a click, unwinding, and a second click. The liquid as seen through the window will partially eject; you will see the dose window unwind back to 0 Holding the pen down for 10 seconds, or 2 seconds past the moment the dose window shows 0 again, ensures complete delivery of medication. Pull pen straight out Carefully unscrew pen needle and discard pen needle in a puncture resistant container (such as a milk carton) Storage of Medication Refrigerate pens that are not in use. Avoid freezing and excessive heat. Pen currently in use should be room temperature before injection. Handouts: Care Coordination Business Card Evitahart declined by patient. Goals: One-time assessment Next Steps: Gravity Meter Operator contact information given / reviewed Reviewed when to call Primary Care Provider (PCP) office, urgent care, or 911 Patient declined to schedule follow up with office vp care management during this visit. Patient advised to follow up during next Primary Care Provider(PCP) visit. Gravity Meter Operator will not follow at this time. Notes: OCC remains available to assist patient as needed. Contact information given. documented in this encounter Plan of Treatment [...] as of this encounter Visit Diagnoses Diagnosis Prediabetes- Primary Other abnormal glucose documented in this encounter Additional Health Concerns Assessment Noted Time A fall risk assessment has been complete d for the patient 11/02/2024 3:19 PM EDT documented as of this encounter Care Teams Concrete Finishing Machine Operator Relationship Specialty Start Date End Date Ar Vaca MD [address] [place] [address] PCP - General Family Medicine 04/28/22 Kory Rodriguez MD [address] [phone] Consulting Physician Internal Medicine-Nephrology 10/03/20 documented as of this encounter
--- OUTSIDE RECORDS SUMMARY | 2024-12-19 15:00 | XMS_ITS | Encounter Summary ---
Author Organization [place] [address] Care Team Providers Care Mosquito Sprayer Name Role Phone Kory Rodriguez MD Unavailable [phone] Ar Vaca MD Primary Care Provider + Reason for Visit * Reason Comments Rash Encounter Details Date Type Department Care Team (Late st Contact Info) Description 12/19/2024 3:00 PM EDT Office Visit [facility] [place] [address] [place] [address] Ar Vaca MD [address] [place] [address] Dermatitis (Primary Dx); Systemic lupus erythematosus, unspecified SLE type, unspecified organ involvement status (HCC) Social History Tobacco Use Types Packs/Day [...] Date Recorded PHQ-2 Total Score 0 11/02/2024 [facility] [place] of Occupat ional Health - Occupational Stress [...] Sign Reading Time Taken Comments Blood Pressure 126/72 12/19/2024 2:47 PM EDT Pulse 70 12/19/2024 2:47 PM EDT Temperature - - Respiratory Rate - - Oxygen Saturation 98% 12/19/2024 2:47 PM EDT Inhaled Oxygen Concentration - - [...] Martinez, CEASAR * Does this person have difficulty dressing or bathing? Answer Date of Assessment Author No 11/02/2024 3:21 PM EDT Terri Martinez, CEASAR * Because of a physical, mental or emotional condition, does this person have difficulty doing errands alone such as visiting a doctor's office or shopping? Answer Date of Assessment Author No 11/02/2024 3:21 PM EDTerri Beltran RN documented as of this encounter Mental Status * Because of a physical, mental or emotional condition, does this person have serious difficulty concentrating, remembering or making decisions? Answer Entry Date Author No 11/02/2024 3:21 PM EDT Terri Martinez RN documented in this encounter Ordered Prescriptions Prescription Sig Dispense Quantity Refills Last Filled Start Date End Date loratadine (CLARITIN) 10 mg Oral TabletIndications: Dermatitis Take 1 Tablet by mouth daily. 30 Tablet 5 12/19/2024 predniSONE (DELTASONE) 10 mg Oral TabletIndications: Dermatitis 40mg(4 pills) today and decrease 5mg(1/2 pill) qd 18 Tablet 12/19/2024 documented in this encounter Progress Notes * Ar Vaca MD - 12/19/2024 3:00 PM EDT Vitals: 12/19/24 1447 BP: 126/72 Pulse: 70 SpO2: 98% SUBJECTIVE: Chief Complaint Patient presents with ??? Rash HPI: Rash This is a recurrent problem. The current episode started more than 1 month ago. The problem has been gradually worsening since onset. The affected locations include the left arm and right arm. The rash is characterized by itchiness. Associated symptoms include itching. Past treatments include anti-itch cream, oral steroids and topical steroids. Review of Systems Constitutional: Negative. HENT: Negative. Eyes: Negative. Respiratory: Negative. Cardiovascular: Negative. Gastrointestinal: Negative. Skin: Positive for itching and rash. Psychiatric/Behavioral: Negative. All other systems reviewed and are negative. OBJECTIVE: Physical Exam Vitals and nursing note reviewed. Constitutional: Appearance: She is well-developed. HENT: Head: Normocephalic. Eyes: Conjunctiva/sclera: Conjunctivae normal. Cardiovascular: Rate and Rhythm: Normal rate and regular rhythm. Heart sounds: Normal heart sounds. Pulmonary: Effort: Pulmonary effort is normal. No respiratory distress. Breath sounds: Normal breath sounds. No wheezing or rales. Skin: Findings: Rash present. Neurological: Mental Status: She is alert and oriented to person, place, and time. Psychiatric: Behavior: Behavior normal. Assessment Diagnoses and all orders for this visit: Dermatitis - predniSONE (DELTASONE) 10 mg Oral Tablet; 40mg(4 pills) today and decrease 5mg(1/2 pill) qd Dispense: 18 Tablet; Refill: 0 - loratadine (CLARITIN) 10 mg Oral Tablet; Take 1 Tablet by mouth daily. Dispense: 30 Tablet; Refill: 5 Systemic lupus erythematosus, unspecified SLE type, unspecified organ involvement status (HCC) (Chronic) No follow-ups on file. documented in this [...] 7.0 Result Component 5.8( 1:33 PM EDT) Sandy Case LPN documented as of this encounter Visit Diagnoses Diagnosis Dermatitis- Primary Contact dermatitis and other eczema, due to unspecified cause Systemic lupus erythematosus, unspecified SLE type, unspecified organ involvement status (HCC) documented in this encounter Additional Health Concerns Assessment Noted Time A fall risk assessment has been complete d for the patient 11/02/2024 3:19 PM EDT documented as of this encounter Care Teams Mosquito Sprayer Relationship Specialty Start Date End Date Ar Vaca MD [address] [place], [place] [address] PCP - General Family Medicine 04/28/22 Kory Rodriguez MD [address] [facility] [address] [place] [phone] Consulting Physician Internal Medicine-Nephrology 10/03/20 documented as of this encounter
--- OUTSIDE RECORDS SUMMARY | 2025-01-29 13:55 | XMS_ITS | Encounter Summary ---
Author [place] [address] Care Team Providers Care Receipt And Report Clerk Name Role Phone Kory Rodriguez MD Unavailable [phone] Ar Vaca MD Primary Care Provider + Reason for Visit * Reason Comments Medication Refill Encounter Details Date Type Department Care Team (Late st Contact Info) Description 01/01/2025 Refill [facility] [address] [place] [address] Karen Gonzalez MD [address] [place] [address] Medication Refill Social History Tobacco Use Types Packs/Day Years Used Date Smoking Tobacco: Never Smokeless Tobacco: Never Alcohol Use Standard Drinks/Week Comments No 0 (1 standard drink = 0.6 oz pur e alcohol) Overall Financial Resource Strain ([facility]) Answe r Date Recorded How hard is it for you to pa y for the very basics like food, housing, medical care, and heating? Not very hard 08/17/2024 PHQ-2 Answer Date Recorded PHQ-2 Total Score 0 11/02/2024 [facility] of Occupat critical [facility] hospital[facility] - Occupational Stress Questionnaire Answer [...] triamcinolone (KENALOG) 0.1 % Top CreamIndications:R ghada APPLY TOPICALLY 2 TIMES DAILY FOR 10 DAYS. 80 g 01/02/2025 documented in this encounter Miscellaneous Notes * Telephone Encounter - Radha Cagle RN - 01/02/2025 4:07 PM EDT Refill sent documented in this encounter Plan of Treatment [...] Result Component 5.8( 1:33 PM EDT) No Sanyd Chen LPN documented as of this encounter Visit Diagnoses Diagnosis Rash Rash and other nonspecific skin eruption documented in this encounter Discontinued Medications Medication Sig Discontinue Reason Start Date End Da te triamcinolone (KENALOG) 0.1 % Top CreamIndications:Rash Apply topically 2 times daily for 10 days. 12/06/2024 01/02/2025 documented as of this encounter Additional Health Concerns Assessment Noted Time A fall risk assessment has been complete d for the patient 11/02/2024 3:19 PM EDT documented as of this encounter Care Teams Receipt And Report Clerk Relationship Specialty Start Date End Date Ar Vaca MD [address] [place] [address] PCP - General Family Medicine 04/28/22 Kory Rodriguez MD [address] [place] [phone] Consulting Physician Internal Medicine-Nephrology 10/03/20 documented as of this encounter
--- OUTSIDE RECORDS SUMMARY | 2025-01-29 13:55 | XMS_ITS | Encounter Summary ---
Author Organization [place] [address] Care Team Providers Care Correction Officer Penitentiary Name Role Phone Kory Rodriguez MD Unavailable [phone] Ar Vaca MD Primary Care Provider + Reason for Visit * Reason Onset Date Comments Symptoms (Only Use If Pt Pus hes Back On Scheduling A Visit) 12/21/2024 green infection coming out o f sinuses Encounter Details Date Type Department Care Team (Late st Contact Info) Description 12/21/2024 Telephone [facility] [address] [place] [address] Ar Vaca MD [address] [place] [address] Symptoms (Only Use If Pt Pushes [...] Date Recorded PHQ-2 Total Score 0 11/02/2024 [facility] of Occupat ional Health - Occupational Stress [...] for yeast infection from abx Pharmacy & Location:[facility]/pharmacy #[id number] [address] [place] [address] [facility] - [phone] Return Method of Communication: Phone Call Was [...] documented as of this encounter Care Teams Correction Officer Penitentiary Relationship Specialty Start Date End Date Ar Vaca MD [address] [place] [address] PCP - General Family Medicine 04/28/22 Kory Rodriguez MD [address] [place] [address] Consulting Physician Internal Medicine-Nephrology 10/03/20 documented as of this encounter
--- OUTSIDE RECORDS SUMMARY | 2025-01-29 13:55 | XMS_ITS | Encounter Summary ---
Author Organization [place] [address] Care Team Providers Care Cutter Hand Name Role Phone Kory Rodriguez MD Unavailable [phone] Ar Vaca MD Primary Care Provider + Reason for Visit * Reason Onset Date Comments Refill 01/25/2025 Encounter Details Date Type Department Care Team (Late st Contact Info) Description 01/25/2025 Telephone [facility] [address] [place] [address] Ar Vaca MD [address] [place] [address] Refill Social History Tobacco Use Types Packs/Day [...] Date Recorded PHQ-2 Total Score 0 11/02/2024 [facility] of Occupat ional Health - Occupational Stress [...] 11/02/2024 3:21 PM Terri Malone, CEASAR * Is the person blind or does he/she have serious difficulty seeing even when wearing glasses? Answer Date of Assessment Author No 11/02/2024 3:21 PM Terri Malone, CEASAR * Does this person have serious difficulty walking or climbing stairs? Answer Date of Assessment Author No 11/02/2024 3:21 PM Terri Maloen, CEASAR * Does this person have difficulty dressing or bathing? Answer Date of Assessment Author No 11/02/2024 3:21 PM Terri Malone, CEASAR * Because of a physical, mental or emotional condition, does this person have difficulty doing errands alone such as visiting a doctor's office or shopping? Answer Date of Assessment Author No 11/02/2024 3:21 PM Terri Malone, CEASAR documented as of this encounter Mental Status * Because of a physical, mental or emotional condition, does this person have serious difficulty concentrating, remembering or making decisions? Answer Entry Date Author No 11/02/2024 3:21 PM EDT Terri Martinez, CEASAR documented in this encounter Ordered Prescriptions Prescription Sig Dispense Quantity Refills Last Filled Start Date End Date meclizine (ANTIVERT) 25 mg Oral TabletIndications:D izziness Take 1 Tablet by mouth 3 times daily as needed for Dizziness. 30 Tablet 5 01/25/2025 documented in this encounter Miscellaneous Notes * Telephone Encounter - Jewels Weinstein - 01/25/2025 10:39 AM EDT Select the most appropriate reason for this telephone message: Medication Refill Who is requesting the refill: Patient Medication(s)Name/Dosage/Frequency: Disp Refills Start End meclizine (ANTIVERT) 25 mg Oral Tablet 30 Tablet 5 2023 -- Sig - Route: Take 1 Tablet by mouth 3 times daily as needed for Dizziness. - Oral Sent to pharmacy as: meclizine 25 mg tablet (ANTIVERT) E-Prescribing Status: Receipt confirmed by pharmacy (2023 11:25 AM EDT) Did patient contact the pharmacy first: Yes no refills, pt declined OV for med refills. Last fill on med was 12/10/23, over 1 year How many days left on hand: none Future appt date w/ prescribing provider: Nothing scheduled. Pharmacy & Location: [facility]/pharmacy #[id number] [place] [address] - [address] [place] [address] - [phone] [place] [address] TONY #: [id number] Return Method of Communication: Phone Call Additional Information: Please note pharm change, med last sent to Mail order pharm, pt wants [facility] documented in this encounter Plan of Treatment Not on file documented as of this encounter Goals Goal Patient Goal Type Associated Problems Recent Progress Patient-Stated? Author Blood Pressure < 140/90 Blood Pressure 126/72(2024 2:47 PM EDT) No Ar Vaca MD BMI (Calculated) < 30 General 43(11/02/2024 3:20 PM EDT) Sandy Case LPN Maintain a healthy diet, exercise regularly and maintain an ideal body weight General No Senait Martínez RMA HEMOGLOBIN A1C < 7.0 Result Component 5.8( 5 1:33 PM EDT) Sandy Case LPN documented as of this encounter Visit Diagnoses Diagnosis Dizziness Dizziness and giddiness documented in this encounter Discontinued Medications Medication Sig Discontinue Reason Start Date End Da te meclizine (ANTIVERT) 25 mg Oral TabletIndications:Dizzin ess Take 1 Tablet by mouth 3 times daily as needed for Dizziness. Reorder 2023 01/25/2025 documented as of this encounter Additional Health Concerns Assessment Noted Time A fall risk assessment has been complete d for the patient 11/02/2024 3:19 PM EDT documented as of this encounter Care Teams Cutter Hand Relationship Specialty Start Date End Date Ar Vaca MD [address] [place] [phone] PCP - General Family Medicine 04/28/22 Kory Rodriguez MD [address] [facility] [address] [place] [phone] Consulting Physician Internal Medicine-Nephrology 10/03/20 documented as of this encounter
--- OUTSIDE RECORDS SUMMARY | 2025-01-29 13:55 | XMS_ITS | Encounter Summary ---
Author Organization [place] [address] Care Team Providers Care Geriatric Nursing Assistant Name Role Phone Kory Rodriguez MD Unavailable [phone] Ar Vaca MD Primary Care Provider + Reason for Visit * Reason Onset Date Comments CM- Telephonic Outreach 12/20/2024 Encounter Details Date Type Department Care Team (Late st Contact Info) Description 12/20/2024 Patient Outreach [address] [address] Gayle Luther, CEASAR CM- Telephonic [...] Date Recorded PHQ-2 Total Score 0 11/02/2024 [facility] of Occupat ional Health - [...] reports she did receive a latter from [employer] stating she was enrolled in the assistance program until 07/18/2025. Patient educated that she will be notified when shipment arrives. RN Technology Sales Specialist able to educate patient about role in office. RN Technology Sales Specialist encouraged patient to reach out if further [...] documented as of this encounter Care Teams Geriatric Nursing Assistant Relationship Specialty Start Date End Date Ar Vaca MD [address] [place] [address] PCP - General Family Medicine 04/28/22 Kory Rodriguez MD [address] [facility] [address] [place] [address] Consulting Physician Internal Medicine-Nephrology 10/03/20 documented as of this encounter
--- OUTSIDE RECORDS SUMMARY | 2025-01-29 13:55 | XMS_ITS | Clinical Summary ---
Author Organization [employer] [facility] are Address [address] [phone] Phone Care Team Providers Care Food Service Clerk Name Role Phone Mallory Cortez RN Unavailable Conditions or Problems Problem Name Problem Code Onset Date Status Entry Date Provider Comment Standard Description Annotate Hx of hysterectomy 127584996 (SNOMED CT) Active Mallory Cortez RN Hysterectomy Medications Medication Instructions Start Date Stop Date Generic Name NDC Provider TRAZODONE HCL 50 MG TABS Take on tablet by mouth nightly TRAZODONE HCL 98996321430 Mallory Cortez RN PROMETHAZINE HCL 25 MG TABS Take 2 tablets by mouth every 12 hours as needed for nausea PROMETHAZINE HCL 15195211671 Mallory Cortez RN OXYCODONE-ACETAM INOPHEN 5-325 MG TABS Take one by mouth eery 6 hrs as needed for pain OXYCODONE-ACETAM INOPHEN [id number] Mallory Cortez RN OMEPRAZOLE 40 MG CPDR Take 1 capsule by mouth daily OMEPRAZOLE [id number] Mallory Cortez RN NITROGLYCERIN 0.[address] 1 tablet under the tongue every 5 minutes as needed for chest pain NITROGLYCERIN [id number] Mallory Cortez RN WOMENS MULTIVITAMIN TABS One by mouth daily MULTIPLE VITAMINS-MINERAL S 07049935664 Mallory Cortez RN MELOXICAM 15 MG TABS Take one tablet by mouth daily MELOXICAM 05731106109 Mallory Cortez RN LISINOPRIL-HYDRO CHLOROTHIAZIDE 20-25 MG TABS Take 0.5 tablets by mouth daily LISINOPRIL-HYDRO CHLOROTHIAZIDE 71620234967 Mallory Cortez RN LEVOTHYROXINE SODIUM 75 MCG TABS Take 1 tablet by mouth daily LEVOTHYROXINE SODIUM 75911258848 Mallory Cortez RN FLUTICASONE PROPIONATE 50 MCG/ACT SUSP FLUTICASONE PROPIONATE 23646260460 Mallory Cortez RN LOTRISONE 1-0.05 % EXTERNAL CREAM Apply topically 2 times daily CLOTRIMAZOLE-BET AMETHASONE 71687481069 Mallory Cortez RN BIOTIN 5000 MCG TABS Take 1 tablet by mouth daily BIOTIN 12196478351 Mallory Cortez RN ATORVASTATIN CALCIUM 20 MG TABS Take 1 tablet by mouth daily ATORVASTATIN CALCIUM 78119298687 Mallory Cortez RN ASPIRIN LOW STRENGTH 81 MG CHEW Take 1 tablet by mouth daily ASPIRIN 30488533965 Mallory Cortez RN ALLOPURINOL 100 MG TABS Take 1 tablet by mouth 2 times daily ALLOPURINOL 48021101759 Mallory Cortez RN Medications Administered No information available. Allergies, Adverse Reactions, Alerts No information available. Results No information available. Plan of Care No information available. Procedures No information available. Vital Signs No information available. Immunizations No information available. Advance Directives No information available.
--- OUTSIDE RECORDS SUMMARY | 2025-01-29 13:55 | XMS_ITS | Encounter Summary ---
Author Organization [place] [address] Care Team Providers Care Senior Managing Director Name Role Phone Kory Rodriguez MD Unavailable [phone] Ar Vaca MD Primary Care Provider + Reason for Visit * Reason Comments Medication Refill Encounter Details Date Type Department Care Team (Late st Contact Info) Description 12/21/2024 Refill [facility] [address] [place] [address] Ar Vaca MD [address] [place] [address] Medication Refill Social History Tobacco [...] Date Recorded PHQ-2 Total Score 0 11/02/2024 [facility] [place] of [facility] - Occupational Stress Questionnaire Answer [...] documented as of this encounter Care Teams Senior Managing Director Relationship Specialty Start Date End Date Ar Vaca MD [address] [place] [address] PCP - General Family Medicine 04/28/22 Kory Rodriguez MD [address] [facility] [address] [place] [address] Consulting Physician Internal Medicine-Nephrology 10/03/20 documented as of this encounter
--- OUTSIDE RECORDS SUMMARY | 2025-01-29 13:55 | XMS_ITS | Encounter Summary ---
Author Organization [place] [address] Care Team Providers Care Footwear Stitcher Name Role Phone Kory Rodriguez MD Unavailable [phone] Ar Vaca MD Primary Care Provider + Reason for Visit * Reason Onset Date Comments Care Transition 12/29/2024 CM- Telephonic Outreach 12/29/2024 CM-Medication Assistance 12/29/2024 Encounter Details Date Type Department Care Team (Late st Contact Info) Description 12/29/2024 Patient Outreach [address] [address] Darling Garces RN Care Transition; CM- Telephonic Outreach; CM-Medication Assistance Social History Tobacco Use Types Packs/Day Years [...] Date Recorded PHQ-2 Total Score 0 11/02/2024 [facility] [place] of Occupat ional Health - Occupational Stress [...] Terri Martinez, RN documented in this encounter Ordered Prescriptions Prescription Sig Dispense Quantity Refills Last Filled Start Date End Date semaglutide 0.25 mg or 0.5 mg (2 mg/3 mL) SubQ Pen Injector Inject 0.5 mg under the skin once a week for 122 days. 9 mL 12/29/2024 04/30/2025 documented in this encounter Progress Notes * Darling Garces RN - 12/29/2024 11:47 AM EDT Office Application Support Manager (OCC) contacted patient to notify that a shipment of Ozempic 0.5mg from patient assistance had arrived at the office, and can be picked up at their convenience. Patient did not answer, and voicemail box was full so unable to leave a message. documented in this encounter Miscellaneous Notes * Addendum Note - Darling Garces RN - 12/29/2024 11:57 AM EDTAddended by: DARLING GARCES on: 12/29/2024 11:57 AM Modules accepted: Orders * Telephone Encounter - Darling Garces RN - 12/29/2024 11:53 AM EDT patient called back, informed she could pickling grader her meds. documented in this encounter Plan of Treatment [...] documented as of this encounter Care Teams Footwear Stitcher Relationship Specialty Start Date End Date Ar Vaca MD [address] [place] [address] PCP - General Family Medicine 04/28/22 Kory Rodriguez MD [address] [facility] [address] [place] [address] Consulting Physician Internal Medicine-Nephrology 10/03/20 documented as of this encounter
--- OUTSIDE RECORDS SUMMARY | 2025-01-29 13:58 | XMS_ITS | Encounter Summary ---
Author Organization [place] [address] Care Team Providers Care Cs Associate Name Role Phone Kory Rodriguez MD Unavailable [phone] Ar Vaca MD Primary Care Provider + Reason for Visit * Reason Comments Medication Refill Encounter Details Date Type Department Care Team (Late st Contact Info) Description 11/28/2024 Refill [facility] [address] [place] [address] Ar Vaca MD [address] [place] [address] Medication Refill Social History Tobacco [...] Date Recorded PHQ-2 Total Score 0 11/02/2024 [facility] [place] [facility] - Occupational Stress Questionnaire Answer [...] Assessment Author No 11/02/2024 3:21 PM Terri Malnoe RN * Because of a physical, mental [...] documented as of this encounter Care Teams Cs Associate Relationship Specialty Start Date End Date Ar Vaca MD [address] [place] [address] PCP - General Family Medicine 04/28/22 Kory Rodriguez MD [address] [place] [address] Consulting Physician Internal Medicine-Nephrology 10/03/20 documented as of this encounter
--- OUTSIDE RECORDS SUMMARY | 2025-01-29 13:58 | XMS_ITS | Encounter Summary ---
Author Organization [place] [address] Care Team Providers Care Central Office Worker Name Role Phone Kory Rodriguez MD Unavailable [phone] Ar Vaca MD Primary Care Provider + Reason for Visit * Reason Onset Date Comments Prior Authorization 12/04/2024 Ozempic Encounter Details Date Type Department Care Team (Late st Contact Info) Description 12/04/2024 Telephone [facility] [address] [place] [address] Ar Vaca MD [address] [place] [address] Prior Authorization (Ozempic) Social History [...] Recorded PHQ-2 Total Score 0 11/02/2024 [facility] of Occupat ional Health - Occupational Stress [...] assistance with Ozempic. Patient informed she can orange picker a sample. * Telephone Encounter - Terri Martinez RN - 12/07/2024 6:46 AM EDT Is she on a program for ozempic? * Telephone Encounter - Master Pringle - 12/06/2024 4:15 PM EDT Select the [...] 400 dollars Last appointment date: 11/30/24 Pharmacy: [facility]/pharmacy #[id number] [place] [address] [address] [facility] [phone] Return Method of Communication: Phone Call Additional [...] documented as of this encounter Care Teams Central Office Worker Relationship Specialty Start Date End Date Ar Vaca MD [address] [place] [address] PCP - General Family Medicine 04/28/22 Kory Rdoriguez MD [address] [facility] [address] [place] [address] Consulting Physician Internal Medicine-Nephrology 10/03/20 documented as of this encounter
--- OUTSIDE RECORDS SUMMARY | 2025-01-29 13:58 | XMS_ITS | Encounter Summary ---
Author Organization [place] [address] Care Team Providers Care Production Or Plant Engineer Name Role Phone Kory Rodriguez MD Unavailable [phone] Ar Vaca MD Primary Care Provider + Encounter Details Date Type Department Care Team (Late st Contact Info) Description 12/01/2024 Results Follow-Up [facility] [address] [place] [address] Ar Vaca MD [address] [place] [address] URINE CULTURE (NO STAIN) Social [...] [facility] - [facility]ational Stress Questionnaire Answer Date [...] documented as of this encounter Care Teams Production Or Plant Engineer Relationship Specialty Start Date End Date Ar Vaca MD [address] [place] [phone] PCP - General Family Medicine 04/28/22 Kory Rodriguez MD [address] [facility] [address] [place] [phone] Consulting Physician Internal Medicine-Nephrology 10/03/20 documented as of this encounter
--- OUTSIDE RECORDS SUMMARY | 2025-01-29 13:58 | XMS_ITS | Continuity of Care Document ---
Author Organization [facility] Address [address] [place] [address] Phone Care Team Providers Care Technical Healthcare Consultant Name Role Phone Kory Rodriguez MD Unavailable Ar Vaca MD Primary Care Provider + Encounters Date Type Department Care Team Description [address] [address] Ar Vaca MD Refill [address] [address] Karen Gonzalez MD Medication Refill 5 Patient Outreach [address] [address] Darling Guerra RN Care Transition; CM- Telephonic Outreach; CM-Medication Assistance [address] [address] Ar Vaca MD Symptoms (Only Use If Pt Pushes Back On Scheduling A Visit) (green infection coming out of sinuses) [address] [address] Ar Vaca MD Medication Refill 5 Patient Outreach [address] [address] Gayle Luther RN CM- Telephonic Outreach 5 3:00 PM EDT Office Visit [facility] [address], [place] [address] Ar Vaca MD Dermatitis (Primary Dx); Systemic lupus erythematosus, unspecified SLE type, unspecified organ involvement status (HCC) 5 12:00 PM EDT Clinical Support [facility] [facility] [address], [place] [address] Darling Guerra RN Prediabetes (Primary Dx) 5 1:30 PM EDT Office Visit [facility] [place] [address], [place] [address] Karen Gonzalez MD Rash (Primary Dx) 5 Telephone [facility] [place] [address], [place] [address] Ar Vaca MD Prior Authorization (Ozempic) 5 Results Follow-Up [facility] [place] [address], [place] [address] Ar Vaca MD URINE CULTURE (NO STAIN) 5 Results Follow-Up [facility] [place] [address], [place] [address] Ar Vaca MD HEMOGLOBIN A1C, COMPREHENSIVE METABOLIC PANEL, CBC WITH DIFF, Additional followed-up results: 2 5 1:32 PM EDT - 5 11:59 PM EDT Hospital Encounter [facility] [place] [address] [address] Prediabetes; Medicare annual wellness visit, subsequent; Hypertension; Acquired hypothyroidism; Elevated uric acid in blood Discharge Disposition: Home or Self Care 5 1:20 PM EDT Office Visit [facility] [place] [address], [place] [address] Ar Vaca MD Thrush (Primary Dx); Urinary frequency; Acute recurrent cystitis; Morbid obesity with body mass index of 40.0-49.9 ([facility]) 5 Orders Only [facility] [place] [place] [address] Monica Ibrahim MA Muscle pain; Erosive osteoarthritis of both hands; Gastroesophageal reflux disease with esophagitis without hemorrhage; Hypertension 5 Telephone [facility] [place] [place] [address] Ar Vaca MD Relaying Information (regarding pt's pharmacy) 5 Telephone [facility] [place] [place] [address] Ar Vaca MD Refill (Propranolol ); Medication Management (Call pharmacy on refills from 11/02 they did not receive per patient ) 5 Refill [facility] [place] [place] [address] Ar Vaca MD Medication Refill 5 3:20 PM EDT Office Visit [facility] [place] [place] [address] Ar Vaca MD Medicare annual wellness visit, subsequent (Primary Dx); Elevated uric acid in blood; Muscle pain; Acquired hypothyroidism; Hypertension; Erosive osteoarthritis of both hands; Nausea; Gastroesophageal reflux disease with esophagitis without hemorrhage; Prediabetes; Arthritis of right temporomandibular joint; Primary osteoarthritis of left knee 5 Telephone [facility] [place] [place] [address] Ar Vaca MD Medication Refill ( Disp Refills Start End /omeprazole (PRILOSEC) 40 mg Oral Capsule, Delayed Release(E.C.) 90 Capsule 0 06/22/2024 - /Sig - Route: Take 1 Capsule by mouth daily. - Oral //) 5 Telephone [facility] [place] [place] [address] Ar Vaca MD Health Maintenance 5 Telephone [facility] [place] [address] [place] [address] Ar Vaca MD Medication Management (RYBELSUS ) 5 Patient Outreach [facility] [place] [facility] [address] [place] [address] Gayle Luther RN CM- Telephonic Outreach; CM-Medication Assistance (Rybelsus) 5 Patient Outreach [facility] [address] [facility] [address] Ar Vaca MD Central Patient Navigator Outreach (AWV questionnaire) 5 Telephone [facility] [place] [address] [place] [address] Ar Vaca MD Results (Labs 08/15/24) 5 Telephone [facility] [place] [address] [place] [address] Ar Vaca MD Health Maintenance 5 Telephone [facility] [place] [address] [place] [address] Ar Vaca MD Medication Management (FYI Change in Pharmacy /2 medications ) 5 2:40 PM EST Clinical Support [facility] [place] [address] [place] [address] Darling Guerra RN Hyperglycemia (Primary Dx) 5 2:35 PM EST - 5 11:59 PM EST Hospital Encounter [facility] [address] [place] [address] Acquired hypothyroidism; Hypertension Discharge Disposition: Home or Self Care 5 1:40 PM EST Office Visit [facility] [place] [address] [place] [address] Ar Vaca MD Hypertension (Primary Dx); Erosive osteoarthritis of both hands; Nausea; Morbid obesity with body mass index of 40.0-49.9 (HCC); Acquired hypothyroidism; Need for vaccine for Td (tetanus-diphtheria); Hyperglycemia 4 Telephone [facility] [place] [address] [place] [address] Ar Vaca MD Refill (4 meds) 4 4:20 PM EST [facility]med[facility] [place] [facility] [address] [place] [address] Ar Vaca MD Acute bacterial sinusitis (Primary Dx); Antibiotic-induced yeast infection 4 Telephone [facility] [place] [place] [address] Ar Vaca MD Other (please either change appt today to alt vv or call in rx) 4 Patient Outreach [facility] [place] [place] [address] Darling Guerra RN Care Transition; CM- Telephonic Outreach; CM-Medication Assistance 4 1:37 PM EDT - 4 11:59 PM EDT Hospital Encounter [facility] [facility] [address] [place] [address] Hypertriglyceridemia; Arthritis; Frequent falls; Fatigue, unspecified type Discharge Disposition: Home or Self Care 4 1:50 PM EDT Office Visit [facility] [place] [place] [address] Ar Vaca MD Frequent falls (Primary Dx); Arthritis; Fatigue, unspecified type 4 Telephone [facility] [address] [place] [address] Ar Vaca MD Prior Authorization 4 Telephone [facility] [place] [address] [place] [address] Ar Vaca MD Refill (3 med refills) 4 Telephone [facility] [address] [place] [id number] Ar Vaca MD Results (ERR ) 4 Telephone [facility] [address] [place] [address] Senait Martínez [facility] Health Maintenance; Follow-up (mammogram) 4 Refill [facility] [address] [place] [address] Ar Vaca MD Medication Refill 4 Refill [facility] [address] [place] [place] [address] Ar Vaca MD Medication Refill [address] [address] Vivien Keating [facility] Prior Authorization 4 10:50 AM EDT Office Visit [facility] [place] [place] [address] Ar Vaca MD Hypertriglyceridemia (Primary Dx); Constipation, chronic; Hypernatremia; CKD stage G2/A2, GFR 60-89 and albumin creatinine ratio 30-299 mg/g; Acquired hypothyroidism; Hypertension; Dizziness; Nail problem; Allergic conjunctivitis, bilateral 4 Patient Outreach [facility] [address] [place] [address] Diana Walker, CEASAR Care Management - Chart Review 4 Patient Outreach [address] [place] [address] Darling Guerra RN Care Transition; CM- Telephonic Outreach; CM-Medication Assistance 4 Telephone [facility] [address] [facility] [place] [address] Ar Vaca MD Medication Management ( Disp Refills Start End /semaglutide (RYBELSUS) 14 mg Oral Tablet 120 Tablet 0 09/03/2023 - /Sig - Route: Take 1 Tablet by mouth daily. - Oral //) 4 Refill [facility] [facility] [address] [facility] [place] [address] Ar Vaca MD Medication Refill 4 Refill [facility] [place] [address] [facility] [place] [address] Ar Vaca MD Medication Refill 4 Telephone [facility] [place] [address] [place] [address] Ar Vaca MD Medication Management 4 Telephone [facility] [place] [address] Yoko Ortiz RN Results 4 12:41 PM EDT - 4 11:59 PM EDT Hospital Encounter [facility] [facility] [address] [place] [address] Urinary frequency Discharge Disposition: Home or Self Care 4 Telephone [facility] [address] [place] [address] Ar Vaca MD Orders (Urinalyses ) 4 Telephone [facility] [place] [address] [facility] [place] [address] Vivien Keating Karen Prior Authorization 4 Telephone [facility] [place] [address] [place] [address] Senait Martínez Karen Health Maintenance 4 4:10 PM EST Ancillary Procedure [facility] [place] [address] [place] [address] Ar Vaca MD DDD (degenerative disc disease), cervical Discharge Disposition: Home or Self Care 4 3:43 PM EST - 4 11:59 PM EST Hospital Encounter [facility] [place] [address] [facility] [place] [address] Elevated LFTs Discharge Disposition: Home or Self Care 4 3:00 PM EST Office Visit [facility] [place] [address] [place] [address] Ar Vaca MD Muscle pain (Primary Dx); Nausea; DDD (degenerative disc disease), cervical; Essential hypertension 4 Telephone [facility] [place] [address] [place] [address] Ar Vaca MD Appointment Needed (Re-check UA) 4 Patient Outreach [facility] [address] [place] [address] Ar Vaca MD Central Patient Navigator Outreach (AWV/); Central Order Completion Outreach (Mammogram); CM-Medication Assistance; CM- Telephonic Outreach; Care Transition 4 Patient Outreach [facility] [place] [place] [address] Diana Walker, RN CM- Telephonic Outreach; Care Transition; CM-Medication Assistance 4 Orders Only [facility] [place] [address] [place] [address] Ar Vaca MD Elevated LFTs (Primary Dx) 4 Refill [facility] [place] [address] [facility] [place] [address] Ar Vaca MD Medication Refill 4 3:30 PM EST Office Visit [facility] [place] [address] [facility] [place] [address] Diana Walker, RN Encounter for support and coordination of transition of care (Primary Dx) 4 3:20 PM EST Office Visit [facility] [place] [address] [place] [address] Ar Vaca MD Medicare annual wellness visit, subsequent (Primary Dx); Elevated uric acid in blood; WILLIE (generalized anxiety disorder); Acquired hypothyroidism; CKD stage G2/A2, GFR 60-89 and albumin creatinine ratio 30-299 mg/g; Gastroesophageal reflux disease with esophagitis without hemorrhage; DDD (degenerative disc disease), cervical; Essential hypertension; Morbid obesity with body mass index of 40.0-49.9 ([facility]); Prediabetes; Urinary frequency; Major depressive disorder, single episode, in partial remission; Chronic kidney disease, stage 3a ([facility]) 4 Refill [facility] [facility] [address] [facility] [place] [address] Ar Vaca MD Medication Refill 3 Refill [facility] [address] [facility] [place] [address] Ar Vaca MD Medication Refill 3 1:45 PM EDT Clinical Support [facility] [facility] [address] [facility] [place] [address] Ashly Pereira CCMA Need for influenza vaccination (Primary Dx) 3 Orders Only [facility] [facility] [address] [facility] [place] [address] Ar Vaca MD Sinobronchitis (Primary Dx); Elevated uric acid in blood 3 Telephone [facility] [address] [facility] [place] [address] Ar Vaca MD Symptom Call (sore throat, coughing up greenish/yellowish mucus, ears hurt, eyes matted in morning/) 3 3:40 PM EDT Office Visit [facility] [address] [facility] [place] [address] Ar Vaca MD Acute URI (Primary Dx); Encounter for screening for COVID-19; Hypotension, unspecified hypotension type; CKD stage G2/A2, GFR 60-89 and albumin creatinine ratio 30-299 mg/g 3 Telephone [facility] [address] [address] Ar Vaca MD Symptom Call (throat/ear pain, body aches x this morning, no bal, [employer] Medicare) [address] [address] Ar Vaca MD Medication Refill [address] [address] Ar Vaca MD Medication Refill 3 Patient Outreach [facility] [address] [place] [address] Ar Vaca MD Central Order Completion Outreach (mammo) 3 Patient Outreach [address] [address] Diana Walker RN CM- Telephonic Outreach; Care Transition; CM-Medication Assistance 3 2:04 PM EDT - 3 11:59 PM EDT Hospital Encounter [facility] [address] [address] Hypertriglyceridemia; Hyperglycemia; Screening, lipid; Acquired hypothyroidism Discharge Disposition: Home or Self Care 3 2:00 PM EDT Office Visit [address] [address] Ramonita Hernadez APRN Seasonal allergic rhinitis, unspecified trigger (Primary Dx); Hypertriglyceridemia; Screening, lipid; Acquired hypothyroidism; Stage 3a chronic kidney disease (HCC); Hyperglycemia [address] [address] Ar Vaca MD Symptom Call (right ear pain,nausea,no appetite,body aches and dizziness x1 week) [address] [facility] [facility] [address] [facility] [place] [address] Ar Vaca MD Symptom Call 3 Refill [facility] [address] [place] [address] Ar Vaca MD Medication Refill [address] [place] [address] Ar Vaca MD Medication Refill [address] [place] [address] Cornejo, Viral V, DO Medication Refill 3 Patient Outreach [address] [place] [address] Diana Walker RN CM- Telephonic Outreach; Care Transition; CM-Medication Assistance [address] [place] [address] Ar Vaca MD Medication Refill [address] [place] [address] Ar Vaca MD Symptom Call (yeast infections ) [address] [place] [address] Ar Vaca MD Medication Refill [address] [place] [address] Ar Vaca MD Medication Refill 3 1:15 PM EDT Office Visit [facility] [place] [place] [facility] Gabbie Simms MD Acute non-recurrent maxillary sinusitis (Primary Dx) 3 Patient Outreach [address] [address] Diana Walker RN CM- Telephonic Outreach; Care Transition; CM-Medication Assistance [address] [address] Ar Vaca MD Medication Refill [address] [address] Ar Vaca MD Medication Refill (promethazine (PHENERGAN) 25 mg Oral Tablet) [address] [address] Ar Vaca MD Symptom Call (Possible UTI/) 3 Patient Outreach [address] [address] Diana Walker RN Care Management - Face To Face; Care Transition; CM-Medication Assistance [address] [address] Ar Vaca MD Results 3 Patient Outreach [address] [address] Diana Walker RN CM- Telephonic Outreach; Care Transition; CM-Medication Assistance; CM-Resource Coordination [address] [address] Ar Vaca MD Medication Management 3 Travel 3 10:00 AM EST - 3 11:59 PM EST Hospital Encounter [facility] [address] [facility] [place] [address] Dizziness; CKD stage G2/A2, GFR 60-89 and albumin creatinine ratio 30-299 mg/g; Pre-diabetes; Routine lab draw; Hypertriglyceridemia; Acquired hypothyroidism; Elevated uric acid in blood Discharge Disposition: Home or Self Care 3 2:30 PM EST Office Visit [facility] [place] [address] [place] [address] Ar Vaca MD Dizziness (Primary Dx); Fall, initial encounter; Routine lab draw; CKD stage G2/A2, GFR 60-89 and albumin creatinine ratio 30-299 mg/g; Acquired hypothyroidism; Pre-diabetes; Hypertriglyceridemia; Elevated uric acid in blood; Morbid obesity with body mass index of 40.0-49.9 ([facility]); Prediabetes 3 Telephone [facility] [place] [place] [address] Ar Vaca MD Appointment Needed (falling) 2 Refill [facility] [place] [place] [address] Ar Vaca MD Medication Refill 2 2:20 PM EST Office Visit [facility] [place] [place] [address] Ar Vaca MD Acute bacterial sinusitis (Primary Dx); Encounter for screening mammogram for breast cancer; Allergic reaction, initial encounter; Need for influenza vaccination 2 Refill [facility] [place] [place] [address] Ar Vaca MD Medication Refill 2 Patient Outreach [address] [address] Darling Guerra RN CM-Medication Assistance; CM- Telephonic Outreach; Care Transition 2 Patient Outreach [facility] [address] [facility] [address] Ar Vaca MD Central Order Completion Outreach (Mammogram/) 2 Refill [facility] [place] [place] [address] Ar Vaca MD Medication Refill (Inderal) [address] [place] [address] Ar Vaca MD Medication Refill 2 Patient Outreach [address] [place] [address] Darling Guerra, CEASAR CM-Medication Assistance; CM- Telephonic Outreach; Care Transition 2 Patient Outreach [address] [place] [address] Diana Walker RN CM- Telephonic Outreach; CM-Medication Assistance; Care Transition [address] [place] [address] Ar Vaca MD Medication Refill 2 Patient Outreach [address] [place] [address] Darling Guerra RN CM-Medication Assistance; Care Transition; Care Management - Face To Face 2 3:20 PM EDT Office Visit [address] [place] [address] Ar Vaca MD Morbid obesity with body mass index of 40.0-49.9 (HCC) (Primary Dx); Need for shingles vaccine; Prediabetes [address] [address] Cornejo, Viral V, DO Medication Management (RYBELSUS 7 mg Oral Tablet) [address] [address] Cornejo, Viral V, DO Medication Refill [address] [address] Cornejo, Viral V, DO Medication Refill 2 Refill [facility] [place] [address] [facility] [place] [address] Cornejo, Viral V, DO Medication Refill 2 Telephone [place] [id number] Isaac Washington MD Patient Question 2 Telephone [facility] [place] [place] [address] Cornejo, Viral V, DO Medication Management (Rybelsus) 2 Refill [facility] [place] [place] [address] Cornejo, Viral V, DO Medication Refill 2 4:00 PM EDT Office Visit [address] [address] Ar Vaca MD Medicare annual wellness visit, subsequent (Primary Dx); Acute bacterial sinusitis; DDD (degenerative disc disease), cervical; Antibiotic-induced yeast infection; Elevated uric acid in blood; Acquired hypothyroidism; Essential hypertension; Gastroesophageal reflux disease with esophagitis without hemorrhage; WILLIE (generalized anxiety disorder); Stage 3a chronic kidney disease (HCC); Hyperglycemia 2 Refill [facility] [place] [address] [facility] [place] [address] Cornejo, Viral V, DO Medication Refill 2 Telephone [facility] [place] [place] [address] Cornejo, Viral V, DO Prior Authorization 2 Refill [facility] [place] [place] [address] Cornejo, Viral V, DO Medication Refill 2 Refill [facility] [place] [address] [facility] [place] [address] Cornejo, Viral V, DO Medication Refill (Phenergan ) 2 Refill [facility] [address] [address] Cornejo, Viral V, DO Medication Refill 2 2:15 PM EDT Office Visit [address] [id number] Isaac Washington MD Strain of neck muscle, initial encounter (Primary Dx); Lumbar pain; Strain of lumbar region, initial encounter; Spondylosis 2 Refill [facility] [place] [address] Cornejo, Viral V, DO Medication Refill 2 Patient Outreach [address] [address] Donna Galloway RMA Central Order Completion Outreach 2 Travel 2 2:00 PM EST Office Visit [facility] [address] [address] Jenni Vega PA-C Person under investigation for COVID-19 (Primary Dx); Bronchitis 2 Telephone [facility] [address] [address] Cornejo, Viral V, DO Medication Management [address] [address] Cornejo, Viral V, DO Medication Reaction [address] [address] Cornejo, Viral V, DO Medication Refill 2 3:30 PM EST [facility] [address] Cornejo, Viral V, DO DDD (degenerative disc disease), cervical (Primary Dx); Acquired hypothyroidism; Essential hypertension; Suspected COVID-19 virus infection 2 Refill [facility] [place] [place] [address] Cornejo, Viral V, DO Medication Refill 2 Orders Only [facility] [place] [place] [address] Dawson, Kassy Janet, RMA DDD (degenerative disc disease), cervical (Primary Dx) 2 Travel 2 7:42 AM EST - 2 11:59 PM EST Hospital Encounter [facility] [address] [place] [address] Cornejo, Viral V, DO Lymphadenopathy, cervical Discharge Disposition: Home or Self Care 2 Orders Only [facility] [place] [place] [address] Cornejo, Viral V, DO Hyperlipidemia, unspecified hyperlipidemia type (Primary Dx) 2 Telephone [facility] [place] [place] [address] Cornejo, Viral V, DO Results 2 Refill [facility] [place] [place] [address] Cornejo, Viral V, DO Medication Refill 1 Orders Only [facility] [place] [place] [address] Cornejo, Viral V, DO Lymphadenopathy, cervical (Primary Dx) 1 Travel 1 10:50 AM EST - 1 11:59 PM EST Hospital Encounter [facility] [address] [place] [address] Cornejo, Viral V, DO Lymphadenopathy, cervical Discharge Disposition: Home or Self Care 1 Telephone [facility] [place] [address] [facility] [place] [address] Cornejo, Viral V, DO Results (US HEAD NECK SOFT TISSUE) 1 Orders Only [facility] [address] [place] [address] Cornejo, Viral V, DO Lymphadenopathy, cervical (Primary Dx) 1 10:25 AM EST Hospital Encounter [facility] [address] [place] [address] Cornejo, Viral V, DO Hyperlipidemia, unspecified hyperlipidemia type; Hypertension; Acquired hypothyroidism; Hyperglycemia Discharge Disposition: Home or Self Care 1 Travel 1 10:26 AM EST - 1 11:59 PM EST Hospital Encounter [facility] [address] [place] [address] Cornejo, Viral V, DO Lymphadenopathy, cervical Discharge Disposition: Home or Self Care 1 Refill [facility] [address] [address] Cornejo, Viral V, DO Medication Refill 1 Travel 1 2:40 PM EST Office Visit [facility] [address] [address] Cornejo, Viral V, DO Acquired hypothyroidism (Primary Dx); Hypertension; WILLIE (generalized anxiety disorder); Fibromyalgia; OME (otitis media with effusion), right; Lymphadenopathy, cervical; Hyperglycemia; Hyperlipidemia, unspecified hyperlipidemia type; Knee strain, right, initial encounter [address] [address] Cornejo, Viral V, DO Symptom Call (pt is broken out from the inside of her mouth all the way down to her vagina, from the antibiotic.) 1 Refill [facility] [place] [address] [address] Cornejo, Viral V, DO Medication Refill 1 Travel 1 1:45 PM EDT Office Visit [facility] [address] [address] Hilary Amaya, DPM Pain in right toe(s) (Primary Dx); Dystrophic nail 1 Refill [facility] [place] [address] Cornejo, Viral V, DO Medication Refill (omeprazole (PRILOSEC) 40 mg Oral Capsule, Delayed Release(E.C.)); Medication Refill (allopurinoL (ZYLOPRIM) 100 mg Oral Tablet); Medication Refill (propranoloL (INDERAL) 20 mg Oral Tablet); Medication Refill (lisinopriL-hydrochlorothiazid e (PRINZIDE;ZESTORETIC) 20-25 mg Oral Tablet); Medication Refill (LEVOthyroxine (SYNTHROID) 75 mcg Oral Tablet); Medication Refill [address] [address] Cornejo, Viral V, DO Medication Reaction (CYMBALTA) 1 3:28 PM EDT - 1 11:59 PM EDT Hospital Encounter [facility] [address] [address] WILLIE (generalized anxiety disorder); Fibromyalgia; Erosive osteoarthritis of both hands; MICHAEL (obstructive sleep apnea); Essential hypertension; Acquired hypothyroidism Discharge Disposition: Home or Self Care 1 Travel 1 3:00 PM EDT Office Visit [address] [address] Cornejo, Viral V, DO WILLIE (generalized anxiety disorder) (Primary Dx); Fibromyalgia; Erosive osteoarthritis of both hands; MICHAEL (obstructive sleep apnea); Essential hypertension; Acquired hypothyroidism; OM (onychomycosis) [address] [address] Cornejo, Viral V, DO Anxiety [address] [address] Cornejo, Viral V, DO Medication Refill (promethazine) 1 Travel 1 Telephone [facility] Nephrology [place] [address] [address] Kory Rodriguez MD Appointment Needed 1 3:15 PM EDT Office Visit [facility] Rheumatology [facility] [address] [facility] [address] [place] [address] Lacho Ennis MD Erosive osteoarthritis of both hands (Primary Dx); Acquired deformity of hand, unspecified laterality; Primary osteoarthritis involving multiple joints 1 Telephone [facility] [address] [phone] Maynor Ramirez MD Other 1 Refill [facility] [address] [place] [address] Cornejo, Viral V, DO Medication Refill (Levothyroxine to local pharmacy.); Medication Refill (Multiple refills to [facility] 1 Travel 1 1:30 PM EDT Office Visit [place] [phone] Maynor Ramirez MD Sternoclavicular (joint) (ligament) sprain, right, initial encounter (Primary Dx) 1 Telephone [facility] [place] [address] [place] [address] Cornejo, Viral V, DO Other [facility] [address] [id number] Stevie Piña MD Other 1 Telephone [facility] [address] [place] [address] Cornejo, Viral V, DO Other 1 12:15 PM EDT - 1 11:59 PM EDT Hospital Encounter [facility] [address] [place] [address] Acquired deformity of hand, unspecified laterality; Primary osteoarthritis of both hands Discharge Disposition: Home or Self Care 1 Travel 1 1:40 PM EDT - 1 11:59 PM EDT Hospital Encounter [facility] [address] [place] [address] CKD stage G2/A2, GFR 60-89 a nd albumin creatinine ratio 30-299 mg/g; Hyperglycemia; Vitamin D deficiency; Acquired deformity of hand, unspecified laterality Discharge Disposition: Home or Self Care 1 Travel 1 Travel 1 1:00 PM EDT Office Visit [facility] Rheumatology [address] [place] [address] Lacho Ennis MD Acquired deformity of hand, unspecified laterality (Primary Dx); Primary osteoarthritis of both hands; Primary osteoarthritis involving multiple joints; Vitamin D deficiency; Stage 3a chronic kidney disease (HCC); Hyperuricemia 1 Travel 1 3:20 PM EDT Office Visit [address] [address] Cornejo, Viral V, DO Generalized osteoarthritis of multiple sites (Primary Dx); Acquired hypothyroidism; Essential hypertension; Elevated uric acid in blood; Gastroesophageal reflux disease with esophagitis without hemorrhage; Hyperglycemia; Adhesive capsulitis of right shoulder 1 Travel 1 Patient Outreach [place] [address] [place] [address] Anuj Fernández LPN ED Follow-Up Call 1 Travel 1 1:51 AM EDT - 1 4:43 AM EDT Emergency [facility] [address] [place], [place] [id number] Henry Valiente MD Dysuria (Primary Dx); Lower abdominal pain Discharge Disposition: Home or Self Care [address] [address] Clemente Viral V, DO Medication Management (nitrofurantoin, macrocrystal-monohydrate, (MACROBID) 100 mg Oral Capsule) 1 Travel 1 Orders Only [facility] [address] [place] [address] Laurie Rodriguez RMA UTI (urinary tract infection), uncomplicated 1 6:10 PM EST Office Visit [facility] [place] [place] [address] Cornejo, Viral V, DO UTI (urinary tract infection), uncomplicated (Primary Dx); Post-menopausal; Hyperlipidemia, unspecified hyperlipidemia type; Acquired hypothyroidism; Fibromyalgia; Claudication; Medicare annual wellness visit, subsequent; Cystic lesion of abdominal viscera 1 Travel 1 Telephone [facility] [place] [place] [address] Cornejo, Viral V, DO Symptom Call 1 Telephone [address] [place] [address] Cornejo, Viral V, DO Medication Management (changing to a mail-in Pharmacy) 1 Travel 1 11:15 AM EST Office Visit [facility] NEPHROLOGY [address] [address] Kory Rodriguez MD CKD stage G2/A2, GFR 60-89 and albumin creatinine ratio 30-299 mg/g; Unspecified essential hypertension; Primary osteoarthritis of left knee; Morbid obesity with body mass index of 40.0-49.9 ([facility]) 1 Travel 1 3:00 PM EST - 1 11:59 PM EST Hospital Encounter [address] [place] [address] Stevie Piña MD Sternum pain Discharge Disposition: Home or Self Care 1 Travel 1 Travel 1 Patient Outreach [address] [address] Cornejo, Viral V, DO Central Order Completion Outreach (XR Shoulder Right 4 Views; Mammogram ) 1 Orders Only [address] [address] Sandy Chen LPN Primary osteoarthritis of right shoulder (Primary Dx) 1 9:57 AM EST - 1 11:59 PM EST Hospital Encounter [facility] [address] [place] [address] Acute non-recurrent sinusiti s of other sinus; Acute bronchitis, unspecified organism; COVID-19 virus infection; Clavicle pain Discharge Disposition: Home or Self Care 1 Travel 1 Telephone [facility] [address] [address] Cornejo, Viral V, DO Orders (xray) 1 5:30 PM EST Telemedicine [facility] [place] [address] Cornejo, Viral V, DO Acute non-recurrent sinusitis of other sinus (Primary Dx); Acute bronchitis, unspecified organism; COVID-19 virus infection 1 Travel 1 Telephone [facility] [address] [address] Cornejo, Viral V, DO Appointment Needed 1 Patient Outreach [facility] [address] [place] [address] Cornejo, Viral V, DO Central Patient Navigator Outreach (AWV Questionnaire) [address] [phone] Cornejo, Viral V, DO Follow-up (covid ) 1 Travel 1 2:10 PM EST - 1 11:59 PM EST Hospital Encounter [facility] [address] [place] [address] Cornejo, Viral V, DO Low kidney function Discharge Disposition: Home or Self Care 1 Travel 0 Travel 0 Orders Only [address] [address] Sandy Chen LPN Low kidney function (Primary Dx) 0 Telephone [facility] [address] [place] [address] Cornejo, Viral V, DO Results (BW from 07/10) 0 2:35 PM EST - 0 11:59 PM EST Hospital Encounter [facility] [address] [place] 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 [place] [address] Senait Martínez, RMKaren Shoulder Pain 0 Orders Only [facility] [place] [address] [place] [address] Senait Martínez, RMA H/O drug allergy (Primary Dx) 0 Travel 0 10:50 AM EST Office Visit [facility] [place] [facility] [address] [place] [address] Sacha Keller MD OME (otitis media with effusion), right (Primary Dx); H/O drug allergy; Vaginal yeast infection 0 Travel 0 Travel 0 10:00 AM EST Office Visit [facility] [address] [facility] [address] [place] [address] Shawna Ward MD Class 3 severe obesity due to excess calories with body mass index (BMI) of 50.0 to 59.9 in adult, unspecified whether serious comorbidity present (HCC) (Primary Dx) 0 Orders Only [facility] [address] [facility] [place] [address] Jenni Feliz RMA Acute diffuse otitis externa of right ear 0 Orders Only [facility] [place] [facility] [address] [facility] [place] [address] Sandy Chen LPN Elevated TSH (Primary Dx); Elevated serum free T4 level; Acquired hypothyroidism 0 Telephone [facility] [place] [facility] [address] [facility] [place] [address] Cornejo, Viral V, DO Results (05/15/2020); Symptom Call (uti) 0 11:33 AM EDT - 0 11:59 PM EDT Hospital Encounter [facility] [place] [facility] [address] [place] [address] Hypothyroidism (acquired); Unspecified essential hypertension Discharge Disposition: Home or Self Care 0 10:50 AM EDT Office Visit [facility] [place] [facility] [address] [facility] [place] [address] Cornejo, Viral V, DO Acute diffuse otitis externa of right ear (Primary Dx); Yeast vaginitis; Hypothyroidism (acquired); Unspecified essential hypertension 0 Travel 0 Telephone [facility] [place] [facility] [address] [facility] [place] [address] Cornejo, Viral V, DO Symptom Call 0 Telephone [facility] [place] [facility] [address] [facility] [place] [address] Cornejo, Viral V, DO Results (blood work ) 0 Refill [facility] [place] [facility] [address] [facility] [place] [id number] Cornejo, Viral V, DO Medication Refill 0 Travel 0 4:20 PM EDT - 0 11:59 PM EDT Hospital Encounter [facility] [place] [address] [phone] Need for influenza vaccination; Acquired hypothyroidism; Essential hypertension; Sinusitis, unspecified chronicity, unspecified location; Dizziness; Fibromyalgia; Gastroesophageal reflux disease with esophagitis; Nausea; Elevated uric acid in blood Discharge Disposition: Home or Self Care 0 3:40 PM EDT Office Visit [place] [phone] Cornejo, Viral V, DO Acquired hypothyroidism (Primary Dx); Need for influenza vaccination; Essential hypertension; Sinusitis, unspecified chronicity, unspecified location; Dizziness; Fibromyalgia; Gastroesophageal reflux disease with esophagitis without hemorrhage; Nausea; Elevated uric acid in blood; Pannus, abdominal 0 Travel [address] [facility] [address] [place] [address] Cornejo, Viral V, DO Symptom Call (right ear pain, dizziness) 0 Travel [facility] [address] [place] [address] Cornejo, Viral V, DO Results (batista ) 0 [facility] [address] Cornejo, Viral V, DO Symptom Call (yeast infection ) 0 Travel 0 4:50 PM EDT Office Visit [facility] [address] [place] [address] Cornejo, Viral V, DO Suspected COVID-19 virus infection (Primary Dx); Nausea; Essential hypertension; Gastroesophageal reflux disease with esophagitis; Sinusitis, unspecified chronicity, unspecified location; Dizziness; Fibromyalgia; Acquired hypothyroidism; Elevated uric acid in blood; Acute non-recurrent sinusitis of other sinus; DDD (degenerative disc disease), lumbar 0 Travel [address] [address] Cornejo, Viral V, DO Symptom Call (dizzy, both ears hurt, sinuses feel puffy, throat is a little sore) [address] [address] Lora Domínguez, Karen Other 0 Patient Outreach [facility] [address] [place] [address] Clemente Viral V, DO Schedule Appointment 0 4:16 PM EDT - 0 11:59 PM EDT Hospital Encounter [facility] [address] [address] Subjective memory complaints ; Hypothyroidism (acquired); Abnormal glucose Discharge Disposition: Home or Self Care 0 Travel 0 2:15 PM EDT - 0 4:15 PM EDT Hospital Encounter [facility] [address] [place] [address] Arthritis of right foot; Arthritis of left foot; Capsulitis of ankle, right Discharge Disposition: Home or Self Care 0 3:30 PM EDT Office Visit [facility] [address] [address] Karen Gonzalez MD Pain in both hands (Primary Dx); Abnormal glucose; Hypothyroidism (acquired); Subjective memory complaints 0 Travel [address] [address] Clemente Viral V, DO Appointment Needed (neck, collarbone, shoulder pain on the right side / feels like there is a heaviness in her chest / worsening in the last week) 0 Travel 0 Patient Outreach [facility] [address] [address] Cornejo, Viral V, DO Central Order Completion Outreach 0 Telephone [facility] [place] [address] [facility] [place], [phone] Cornejo, Viral V, DO Symptom Call (leg and hand swelling) [address] [facility] [address] [facility] [place] [address] Cornejo, Viral V, DO Other 0 Orders [facility] [place] [address] Ramonita Hernadez APRN Thrush (Primary Dx); Acute bronchitis, unspecified organism 0 Telephone [facility] [facility] [address] [place] [address] Jameson Terrazas LPN Extremity Weakness 0 Telephone [facility] [address] [place] [address] Cornejo, Viral V, DO Medication Management (predniSONE (DELTASONE) 20 mg Oral Table) 0 Telephone [facility] [place] [address] [place] [address] Cornejo, Viral V, DO Symptom Call (dizziness, weakness, cough, ear ache ) [address] [facility] [place] [address] Cornejo, Viral V, DO Medication Management (Prednisone ) 0 Orders [facility] [place] [address] Sandy Chen LPN Fibromyalgia; Viral syndrome 0 3:20 PM EDT [facility] [address] [facility] [place] [address] Cornejo, Viral V, DO Acquired hypothyroidism (Primary Dx); Unspecified essential hypertension; WILLIE (generalized anxiety disorder); Fibromyalgia; Viral syndrome 0 Travel 0 Telephone [facility] [facility] [address] [facility] [place] [address] Cornejo, Viral V, DO Medication Problem (Venlafaxine and Lyrica) 0 Orders Only [facility] [address] [place] [address] Jameson Terrazas LPN Low kidney function (Primary Dx); Hypothyroidism (acquired) 0 3:50 PM EST - 0 11:59 PM EST Hospital Encounter [facility] [place] [facility] [address] [facility] [place] [address] Acquired hypothyroidism; Hyperglycemia; Essential hypertension Discharge Disposition: Home or Self Care 0 3:30 PM EST Office Visit [facility] [place] [place] [address] Cornejo, Viral V, DO Hyperglycemia (Primary Dx); Acquired hypothyroidism; Essential hypertension; Fibromyalgia; Nausea; Eczema, unspecified type; Gastroesophageal reflux disease with esophagitis; WILLIE (generalized anxiety disorder); Elevated uric acid in blood; Sinusitis, unspecified chronicity, unspecified location; Dizziness; Well adult exam 0 [facility] [place] [address] Cornejo, Viral V, DO Lab Orders (thyroid ) 9 11:03 AM EST - 9 11:59 PM EST Hospital Encounter [facility] [place] [facility] [address] [facility] [place] [address] Serum potassium elevated; WILLIE (generalized anxiety disorder); Seasonal allergic rhinitis due to pollen; Unspecified essential hypertension; Acquired hypothyroidism; Fibromyalgia Discharge Disposition: Home or Self Care 9 3:30 PM EST Office Visit [facility] [place] [address] [place] [address] Cornejo, Viral V, DO WILLIE (generalized anxiety disorder) (Primary Dx); Need for influenza vaccination; Seasonal allergic rhinitis due to pollen; Unspecified essential hypertension; Acquired hypothyroidism; Fibromyalgia 9 Refill [facility] [place] [facility] [address] [place] [address] Cornejo, Viral V, DO Medication Refill 9 Refill [facility] [address] [place] [address] Cornejo, Viral V, DO Medication Refill [address] [address] Cornejo, Viral V, DO Other ( sending results from uropathy ) 9 5:04 PM EDT - 9 11:59 PM EDT Hospital Encounter [facility] [address] [facility] [address] Efrem Higginbotham MD Low back pain, unspecified back pain laterality, unspecified chronicity, unspecified whether sciatica present; Degeneration of lumbar intervertebral disc Discharge Disposition: Home or Self Care [address] [address] Cornejo, Viral V, DO Symptom Call [address] [address] Cornejo, Viral V, DO Referral Follow-up (Sleep Med) 9 3:40 PM EDT Office Visit [address] [address] Cornejo, Viral V, DO Lumbar radiculopathy (Primary Dx); DDD (degenerative disc disease), lumbar; Situational depression [address] [address] Cornejo, Viral V, DO Medication Refill 9 Orders Only [address] [address] Jameson Terrazas LPN 9 1:45 PM EDT - 9 11:59 PM EDT Hospital Encounter [facility] [address] [place] [address] Essential hypertension; Hyperglycemia Discharge Disposition: Home or Self Care 9 4:00 PM EDT Hospital Encounter [facility] [address] [place] [address] Left without seen 9 3:40 PM EDT Office Visit [address] [address] Cornejo, Viral V, DO Hyperlipidemia with target LDL less than 100 (Primary Dx); Acquired hypothyroidism; Fibromyalgia; Gastroesophageal reflux disease with esophagitis; Nausea; Eczema, unspecified type; Essential hypertension; Insomnia, persistent; Need for hepatitis B vaccination; Need for pneumococcal vaccination; MICHAEL (obstructive sleep apnea); Hyperglycemia; Lipoma of upper extremity, unspecified laterality 9 [facility] [address] Cornejo, Viral V, DO Referral (GI Doctor) [address] [address] Senait Martínez RMA Paperwork/forms 9 Refill [place] [id number] Cornejo, Viral V, DO Medication Refill [address] [address] Cornejo, Viral V, DO Medication Refill [address] [address] Cornejo, Viral V, DO Medication Management (cancel prescription for amitriptyline (ELAVIL) 50 mg Oral Tablet [[id number]] ) 9 Orders Only [address] [address] Senait Martínez RMA Insomnia, persistent; Eczema, unspecified type; Acquired hypothyroidism; Gastroesophageal reflux disease with esophagitis; Nausea; Unspecified essential hypertension; Hyperlipidemia with target LDL less than 100; Elevated uric acid in blood; Fibromyalgia; Essential hypertension [address] [address] Sandy Chen LPN Other 9 Telephone [place] [phone] Cornejo, Viral V, DO Medication Management (traZODone (DESYREL) 50 mg Oral Tablet) 9 2:11 PM EST - 9 11:59 PM EST Hospital Encounter [facility] [address] [address] Arthralgia of both hands; Pain in joints of both feet Discharge Disposition: Home or Self Care 9 1:30 PM EST Office Visit [address] [address] Ramonita Hernadez APRN Arthralgia of both hands (Primary Dx); Pain in joints of both feet; Eczema, unspecified type; Acquired hypothyroidism; Insomnia, persistent [address] [address] Cornejo, Viral V, DO Medication Refill [address] [address] Cornejo, Viral V, DO Medication Refill [address] [address] Cornejo, Viral V, DO Other (Medical Necessity for personal home helper benefit) 9 Orders Only [address] [address] Jameson Terrazas LPN Fibromyalgia; Hyperlipidemia with target LDL less than 100 9 11:41 AM EST - 9 11:59 PM EST Hospital Encounter [facility] [address] [place] [address] Cornejo, Viral V, DO Claudication; Lumbar radiculopathy; Numbness of right foot Discharge Disposition: Home or Self Care 9 Telephone [facility] [place] [address] Cornejo, Viral V, DO Medication Management (pharmacy change ) 9 Refill [facility] [address] [address] Cornejo, Viral V, DO Medication Refill 9 Orders Only [address] [address] Senait Martínez, A Serum potassium elevated (Primary Dx) [address] [address] Cornejo, Viral V, DO Medication Refill 9 4:18 PM EST - 9 11:59 PM EST Hospital Encounter [facility] [address] [address] Hyperlipidemia with target L DL less than 100; Controlled type 2 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 disease, unspecified whether long term care administrator insulin use ([facility]) Discharge Disposition: Home or Self Care 9 3:10 PM EST Office Visit [address] [address] Cornejo, Viral V, DO Acute non-recurrent sinusitis of other sinus (Primary Dx); Tinea corporis; WILLIE (generalized anxiety disorder); Abdominal lipoma; Claudication; Numbness of right foot; Lumbar radiculopathy; Controlled type 2 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 disease, unspecified whether long term care administrator insulin use (HCC); Obesity, Class III, BMI 40-49.9 (morbid obesity) (HCC); Encounter for screening mammogram for breast cancer; Acute vaginitis 9 Refill [facility] [place] [address] Cornejo, Viral V, DO Medication Refill 9 Telephone [facility] [place] [address] Cornejo, Viral V, DO Symptom Call (sinus infection) 8 3:20 PM EST - 8 11:59 PM EST Hospital Encounter [facility] [address] [place] [address] Acquired hypothyroidism; Hyperlipidemia with target LDL less than 100; Fatty liver; Increased potassium in the blood Discharge Disposition: Home or Self Care [address] [address] Sandy Chen LPN Sinusitis [address] [address] Cornejo, Viral V, DO Medication Refill 8 4:10 PM EDT Office Visit [address] [address] Cornejo, Viral V, DO Acute non-recurrent sinusitis of other sinus (Primary Dx); Need for influenza vaccination; Seasonal allergic rhinitis due to pollen; Gastroesophageal reflux disease without esophagitis; Unspecified essential hypertension; Acquired hypothyroidism [address] [address] Cornejo, Viral V, DO Medication Refill 8 Refill [facility] [address] [address] Cornejo, Viral V, DO Medication Refill 8 12:59 PM EDT - 8 11:59 PM EDT Hospital Encounter [facility] Mammography [address] [place] [address] Cornejo, Viral V, DO Abnormal mammogram; Breast calcification, right Discharge Disposition: Home or Self Care 8 1:08 PM EDT - 8 11:59 PM EDT Hospital Encounter [facility] [place] [address] [place] [address] Acquired hypothyroidism Discharge Disposition: Home or [facility] 8 Telephone [facility] [address] [place] [address] Jameson Terrazas LPN Orders 8 Refill [facility] [place] [address] [address] Cornejo, Viral V, DO Medication Refill 8 1:10 PM EDT Office Visit [facility] [address] Cornejo, Viral V, DO Encounter for screening mammogram for breast cancer (Primary Dx); Gastroesophageal reflux disease with esophagitis; Acquired hypothyroidism; Hyperlipidemia with target LDL less than 100; Insomnia, persistent; Essential hypertension; Need for shingles vaccine 8 [facility] [address] [place] [address] Sandy Chen LPN Hyperlipidemia, unspecified hyperlipidemia type (Primary Dx); Elevated hemoglobin A1c 8 Refill [facility] [place] [address] [address] Cornejo, Viral V, DO Medication Refill 8 3:15 PM EDT - 8 11:59 PM EDT Hospital Encounter [facility] [address] [place] [place] [address] Unspecified essential hypertension; Hypertriglyceridemia Discharge Disposition: Home or Self Care 8 1:25 PM EDT - 8 11:59 PM EDT Hospital Encounter [facility]G [address] [facility] [address], [place] [address] Rajesh Roca MD Emg, [place] [facility] Numbness and tingling of both feet (Primary Dx) Discharge Disposition: Home or Self Care 8 12:05 PM EDT - 8 1:24 PM EDT Hospital Encounter Von [facility] [address] [place], [facility]17 Rajesh Roca MD Lumbar radiculopathy Discharge Disposition: Home or Self Care 8 Refill [facility] [address] [place] [address] Cornejo, Viral V, DO Medication Refill 8 2:00 PM EDT Office Visit [facility] [address] [place] [address] Cornejo, Viral V, DO Chronic maxillary sinusitis (Primary Dx); Unspecified essential hypertension; Insomnia, persistent; Hyperlipidemia with target LDL less than 100; Acquired hypothyroidism; Fibromyalgia; Elevated uric acid in blood; Hypertriglyceridemia; Well adult exam 8 Refill [facility] [place] [address] Estee Branch RMA Medication Refill 8 Telephone [facility] [place] [phone] Rio Quintero MD Medication Refill 8 Refill [facility] [place] [address] [address] Ramonita Hernadez APRN Medication Refill 8 Telephone [facility] [address] [place] [address] Cornejo, Viral V, DO Other ( RUQ) 8 Telephone [facility] [address] [place] [address] Rajesh Gtuierrez MD PHD Medication Question 8 2:00 PM EDT Office Visit [facility] [address] [address] Rio Pena MD Chronic maxillary sinusitis (Primary Dx) 8 12:10 PM EDT Office Visit [facility] [address] [place] [address] Carrillo Manriquez MD Chronic maxillary sinusitis (Primary Dx) 8 4:45 PM EDT - 8 11:59 PM EDT Hospital Encounter [facility] [address] [place] [address] Constipation, chronic Discharge Disposition: Home or Self Care 8 Refill [facility] [address] [place] [address] Jose Cornejo V, DO Medication Refill [address] [place] [address] Carrillo Manriquez MD Results 8 10:45 AM EDT - 8 11:59 PM EDT Hospital Encounter [facility] [address] [place] [address] Carrillo Manriquez MD Chronic sinusitis, unspecified location Discharge Disposition: Home or Self Care 8 Patient Outreach [facility] [address] [place] [address] Danna Chamorro LPN ED Follow-Up Call 8 8:26 PM EDT - 8 11:53 PM EDT Emergency [facility] [place] [address] Kristopher Richard MD Upper abdominal pain (Primary Dx) Discharge Disposition: Home or Self Care 8 Telephone [facility] [address] [address] Rajesh Gutierrez MD PHD Medication Question 8 Telephone [facility] [address] [address] Rajesh Gutierrez MD PHD Results (BLOOD WORK) 8 1:35 PM EDT - 8 11:59 PM EDT Hospital Encounter [facility] [address] [place] [address] Fatty liver; Obesity, Class III, BMI 40-49.9 (morbid obesity) (HCC) Discharge Disposition: Home or Self Care 8 12:30 PM EDT Office Visit [facility] [address] [place] [address] Rajesh Gutierrez MD PHD Right upper quadrant abdominal pain (Primary Dx); Fatty liver; Obesity, Class III, BMI 40-49.9 (morbid obesity) (HCC) 8 Telephone [facility] [address] [place] [address] Sandy Chen LPN Other 8 Telephone [facility] [address] [place] [address] Senait Martínez RMA Abdominal Pain 8 Orders Only [facility] [address] [place] [address] Jameson Terrazas LPN Fatty liver (Primary Dx); Increased potassium in the blood 8 1:30 PM EDT - 8 1:32 PM EDT Hospital Encounter [facility] [address] [place] [address] Jose Cornejo V, DO Screening for diabetes mellitus (DM); Blood glucose elevated Discharge Disposition: Home or Self Care 8 1:34 PM EDT - 8 11:59 PM EDT Hospital Encounter [facility] [address] [place] [address] Ramonita Hernadez APRN Periumbilical abdominal pain; Abdominal distension Discharge Disposition: Home or Self Care 8 1:33 PM EDT Hospital Encounter [facility] Ultrasound [address] [place] [address] Cornejo, Viral V, DO Epigastric abdominal pain Discharge Disposition: Home or Self Care 8 Telephone [facility] [address] [facility] [place] [address] Cornejo, Viral V, DO Lab Orders; Vaginitis [address] [place] [address] Carrillo Manriquez MD Medication Refill 8 Telephone [facility] [address] [place] [place] [address] Sandy Chen LPN Abdominal Pain 8 Orders Only [facility] [place] [address] [place] [place] [address] Laurie Rodriguez RMA Hyperlipidemia with target LDL less than 100 (Primary Dx) 8 Refill [facility] [address] [place] [place] [address] Ramonita Hernadez APRN Medication Refill 8 Telephone [facility] [address] [place] [place] [address] Cornejo, Viral V, DO Other (Xray tracking ) 8 Refill [facility] [address] [facility] [place] [address] Cornejo, Viral V, DO Medication Refill [address] [place] [address] Carrillo Manriquez MD Sinusitis 8 4:55 PM EST - 8 11:59 PM EST Hospital Encounter [facility] [address] [place] [address] Fibromyalgia; Acquired hypothyroidism; Unspecified essential hypertension; Gastroesophageal reflux disease with esophagitis; Chronic sinusitis, unspecified location; Epigastric abdominal pain Discharge Disposition: Home or Self Care 8 4:00 PM EST Office Visit [facility] [address] [facility] [place] [address] Cornejo, Viral V, DO Chronic sinusitis, unspecified location (Primary Dx); Fibromyalgia; Acquired hypothyroidism; Unspecified essential hypertension; Gastroesophageal reflux disease with esophagitis; Epigastric abdominal pain 8 Refill [facility] [address] [facility] [place] [address] Cornejo, Viral V, DO Medication Refill [address] [place] [address] Carrillo Manriquez MD Results 8 1:30 PM EST Office Visit [address] [place] [address] Carrillo Manriquez MD Acute maxillary sinusitis, recurrence not specified (Primary Dx) 8 Refill [facility] [address] [place] [place] [address] AregagandeeptRamonita [employer]LECTRICAL SIGN W[employer]ER Medication Refill 7 Refill [facility] [address] [facility] [place] [address] Cornejo, Viral V, DO Medication Refill [address] [place] [address] Carrillo Manriquez MD Results 7 10:25 AM EST Office Visit [address] [phone] Carrillo Manriquez MD Acute maxillary sinusitis, recurrence not specified (Primary Dx); Chronic maxillary sinusitis; History of sinus surgery 7 Refill [facility] [address] [place] [address] Cornejo, Viral V, DO Medication Refill 7 Telephone [facility] [address] [facility] [place] [address] Cornejo, Viral V, DO Other (CT Abdomen) 7 Refill [facility] [place] [address] [facility] [place] [address] Cornejo, Viral V, DO Medication Refill 7 Refill [facility] [place] [address] [facility] [place] [address] Sandy Chen LPN Medication Refill 7 Refill [facility] [place] [address] [place] [address] Cornejo, Viral V, DO Medication Refill 7 3:03 PM EDT - 7 11:59 PM EDT Hospital Encounter [facility] [address] [place] [address] Malaise and fatigue; Screening, anemia, deficiency, iron; Hyperglycemia Discharge Disposition: Home or Self Care 7 3:20 PM EDT Office Visit [facility] [place] [address] [place] [address] Ramonita Hernadez APRN WILLIE (generalized anxiety disorder) (Primary Dx); Need for influenza vaccination; Nausea; Unspecified essential hypertension; Gastroesophageal reflux disease without esophagitis; Periumbilical abdominal pain; Acquired hypothyroidism; Malaise and fatigue; Dysuria; High risk medications (not anticoagulants) long-term use; Screening, anemia, deficiency, iron; Hyperglycemia; Abdominal distension 7 11:15 AM EDT Office Visit [facility] [address] [address] Carrillo Manriquez MD Chronic maxillary sinusitis (Primary Dx) 7 Refill [facility] [place] [address] [facility] [place] [address] Cornejo, Viral V, DO Medication Refill 7 Refill [facility] [address] [facility] [place] [address] Loar Domínguez RMA Medication Refill 7 Telephone [facility] [address] [facility] [address] [place] [address] Carrillo Manriquez MD Abdominal Pain 7 Refill [facility] [address] [facility] [place] [address] Cornejo, Viral V, DO Medication Refill 7 Telephone [facility] [address] [facility] [place] [address] Senait Martínez, RMA Nausea 7 12:45 PM EDT Office Visit ENT[address] [place] [address] Carrillo Manriquez MD Chronic maxillary sinusitis (Primary Dx) 7 Orders Only [facility] [address] [facility] [place] [address] Donna Galloway RMA Nausea (Primary Dx) 7 Telephone [facility] [address] [facility] [place] [address] Cornejo, Viral V, DO Other (med refill ) 7 Refill [facility] [address] [facility] [place] [address] Cornejo, Viral V, DO Medication Refill [address] [place] [address] Carrillo Manriquez MD Results 7 Telephone [facility] [address] [facility] [place] [address] Senait Martínez, RMA Other 7 4:14 PM EDT - 7 11:59 PM EDT Hospital Encounter [facility] [place] [address] Chronic maxillary sinusitis Discharge Disposition: Home or Self Care 7 Telephone [facility] [address] [place] [address] Cornejo, Viral V, DO Other (XR Wrist Left Pa Lateral and Oblique) 7 12:45 PM EDT Office Visit [facility] [address] [place] [address] Carrillo Manriquez MD Chronic maxillary sinusitis (Primary Dx) 7 8:00 AM EDT - 7 8:45 AM EDT Surgery [facility] END[facility] [place] [address] Rajesh Gutierrez MD PHD ESOPHAGOGASTRODUODENOSCOPY (ANESTHESIA) 7 8:04 AM EDT Anesthesia Event [facility] [place] [address] Semaj Vega MD Merkle Serey, Jennifer L, NP 7 6:37 AM EDT - 7 11:59 PM EDT Hospital Encounter [facility] END[facility] [place] [address] Rajesh Gutierrez MD PHD Discharge Disposition: Home or Self Care 7 Orders Only [facility] [address] [place] [address] Jameson Terrazas LPN Abnormal nasal finding (Primary Dx) 7 10:20 AM EDT Office Visit [facility] [address] [address] Chaitanya Sanchez MD Lipoma of left lower extremity 7 Telephone [facility] [address] [place] [address] Yaneth Gonsalez, RMA Gout 7 2:27 PM EDT - 7 11:59 PM EDT Hospital Encounter [facility] [address] [place] [address] Acquired hypothyroidism; Hyperglycemia; Hyperlipidemia with target LDL less than 130; Left wrist pain; Need for hepatitis C screening test; Acute non-recurrent sinusitis of other sinus; Unspecified essential hypertension; Fibromyalgia Discharge Disposition: Home or Self Care 7 1:50 PM EDT Office Visit [facility] [place] [address] [address] Cornejo, Viral V, DO Acute non-recurrent sinusitis of other sinus (Primary Dx); Unspecified essential hypertension; Fibromyalgia; Acquired hypothyroidism; Need for hepatitis C screening test; Left wrist pain 7 12:45 PM EDT Office Visit [facility] [address] [address] Kristopher Crump MD Unspecified essential hypertension (Primary Dx); MICHAEL (obstructive sleep apnea); Fibromyalgia; Class 3 obesity due to excess calories with serious comorbidity and body mass index (BMI) of 50.0 to 59.9 in adult (HCC) 7 Refill [facility] [place] [address] [address] Cornejo, Viral V, DO Medication Refill 7 Refill [facility] [place] [address] [address] Cornejo, Viral V, DO Medication Refill 7 Refill [facility] [address] [address] Ramonita Hernadez APRN Medication Refill 7 Refill [facility] [place] [address] [address] Semaj Ballesteros MD Medication Refill 7 Refill [facility] [place] [address] [address] Cornejo, Viral V, DO Medication Refill 7 Telephone [facility] [address] [place] [address] Rajesh Gutierrez MD PHD Cancellation 7 Telephone [facility] [address] [address] Rajesh Gutierrez MD PHD Medication Management (Suprep) 7 Telephone [facility] [address] [address] Rajesh Gutierrez MD PHD EGD (scheduling); Colonoscopy 7 Refill [facility] [address] [place] [address] Semaj Ballesteros MD Medication Refill 7 3:45 PM EDT Office Visit [address] [address] Rajesh Gutierrez MD PHD Lower abdominal pain (Primary Dx); Rectal pain; Hematochezia; Constipation due to opioid therapy; Irritable bowel syndrome with constipation; Esophageal dysphagia 7 Telephone [facility] [address] [address] Rajesh Gutierrez MD PHD Other 7 1:50 PM EDT Office Visit [facility] [address] [place] [address] Cornejo, Viral V, DO Gastroesophageal reflux disease without esophagitis (Primary Dx); WILLIE (generalized anxiety disorder); Unspecified essential hypertension; Acquired hypothyroidism; Lipoma of left upper extremity 7 Telephone [facility] [address] [facility] [place] [address] Jameson Terrazas LPN Medication Refill 7 Refill [facility] [address] [facility] [place] [address] Laurie Rodriguez RMA Medication Refill 7 3:00 PM EDT Office Visit [facility] [address] [place] [place] [address] AreRamonita marion APRN Diarrhea, unspecified type (Primary Dx); Fungal dermatitis; Hyperlipidemia with target LDL less than 130; Obesity, Class III, BMI 40-49.9 (morbid obesity) ([facility]); BMI 45.0-49.9, adult ([facility]); Hyperglycemia; Acquired hypothyroidism; Family history of colon cancer; History of colon polyps 7 Refill [facility] [address] [place] [address] Cornejo, Viral V, DO Medication Refill 7 Telephone [facility] [address] [facility] [place] [address] Sandy Chen LPN Cough; Medication Refill 7 Orders Only [facility] [address] [facility] [place] [address] Senait Martínez RMA Gastroesophageal reflux disease with esophagitis (Primary Dx) 7 Telephone [facility] [address] [facility] [place] [address] Jameson Terrazas LPN Medication Refill 7 Orders Only [facility] [address] [facility] [place] [address] Jameson Terrazas LPN Vitamin D deficiency (Primary Dx) 7 2:36 PM EST - 7 11:59 PM EST Hospital Encounter [facility] [address] [facility] [place] [address] Vitamin D deficiency; Anemia, unspecified type Discharge Disposition: Home or Self Care 7 1:40 PM EST Office Visit [facility] [address] [facility] [place] [address] Cornejo, Viral V, DO Unspecified essential hypertension (Primary Dx); WILLIE (generalized anxiety disorder); Insomnia, persistent; Acquired hypothyroidism; Obesity, Class III, BMI 40-49.9 (morbid obesity) ([facility]); Generalized osteoarthritis of multiple sites; Vitamin D deficiency 7 Telephone [facility] [address] [facility] [place] [address] Senait Martínez, RMA Medication Refill 7 Telephone [facility] [facility] [address] [place] [address] Ramonita Hernadez APRN Vaginitis 7 Orders Only [facility] [facility] [address] [place] [address] Adam Moon, EDGAR Yeast infection (Primary Dx) 7 3:30 PM EST Office Visit [facility] [facility] [address] [place] [address] Ramonita Hernadez APRN Acute non-recurrent pansinusitis (Primary Dx); Acute bronchitis, unspecified organism; Fibromyalgia 7 Orders Only [facility] [facility] [address] [place] [address] Yaneth Gonsalez RMA WILLIE (generalized anxiety disorder) 7 Orders Only [facility] [facility] [address] [place] [address] Sandy Chen LPN WILLIE (generalized anxiety disorder) (Primary Dx) 7 Orders Only [facility] [facility] [address] [place] [address] Yaneth Gonsalez RMA Nausea and vomiting, intractability of vomiting not specified, unspecified vomiting type (Primary Dx); WILLIE (generalized anxiety disorder) 7 Refill [facility] [facility] [address] [place] [address] Sandy Chen LPN Medication Refill 7 Orders Only [facility] [facility] [address] [place] [address] Ramonita Hernadez APRN Fibromyalgia (Primary Dx) 6 Orders Only [facility] [facility] [address] [place] [address] Jenni Feliz, RMA WILLIE (generalized anxiety disorder) 6 Refill [facility] [facility] [address] [facility] [place] [address] Cornejo, Viral V, DO Medication Refill 6 Telephone [facility] [place] [facility] [address] [place] [address] Chen, Sandy, GAS DISPATCHER Medication Problem 6 Orders Only [facility] [address] [place] [address] Chen, Sandy, GAS DISPATCHER Insomnia, persistent 6 Orders Only [facility] [facility] [address] [facility] [place] [address] MeganJuliane balderas, RMA WILLIE (generalized anxiety disorder) 6 Refill [facility] [address] [facility] [place] [address] Jameson Terrazas LPN Medication Refill 6 Refill [facility] [facility] [address] [facility] [place] [address] Cornejo, Viral V, DO Medication Refill 6 4:05 PM EST - 6 11:59 PM EST Hospital Encounter [facility] [address] [facility] [place] [address] Pre-op examination; Surgery, elective Discharge Disposition: Home or Self Care 6 Refill [facility] [address] [facility] [place] [address] Cornejo, Viral V, DO Medication Refill 6 2:00 PM EST Office Visit [facility] [address] [facility] [place] [address] Cornejo, Viral V, DO Pre-op examination (Primary Dx); Strain of right knee, initial encounter; Osteoarthritis of right knee, unspecified osteoarthritis type; Surgery, elective 6 Refill [facility] [address] [facility] [place] [address] Clemente Viral V, DO Medication Refill 6 9:45 AM EST - 6 11:59 PM EST Hospital Encounter [facility] [address] [facility] [place] [address] Kristopher Crump MD Unspecified essential hypertension; Morbid obesity due to excess calories (HCC); Precordial pain; MICHAEL (obstructive sleep apnea); Preop cardiovascular exam Discharge Disposition: Home or Self Care 6 9:00 AM EST - 6 9:44 AM EST Hospital Encounter [facility] STR[facility] [address] [place] [address] Kristopher Crump MD Unspecified essential hypertension; Morbid obesity due to excess calories (HCC); Precordial pain; MICHAEL (obstructive sleep apnea); Preop cardiovascular exam Discharge Disposition: Home or Self Care 6 7:52 AM EST - 6 8:59 AM EST Hospital Encounter [facility] [address] [place] [address] Kristopher Crump MD Unspecified essential hypertension; Morbid obesity due to excess calories (HCC); Precordial pain; MICHAEL (obstructive sleep apnea); Preop cardiovascular exam Discharge Disposition: Home or Self Care 6 10:15 AM EST Office Visit [facility] [address] [phone] Kristopher Crump MD Unspecified essential hypertension (Primary Dx); Morbid obesity due to excess calories (HCC); Precordial pain; MICHAEL (obstructive sleep apnea); Preop cardiovascular exam 6 Refill [facility] [address] [address] Senait Martínez RMA Medication Refill 6 11:30 AM EDT - 6 11:59 PM EDT Hospital Encounter [facility] [address] [place] [address] Cornejo, Viral V, DO Pelvic pain Discharge Disposition: Home or Self Care 6 Orders Only [facility] [address] [place] [address] Senait Martíneze, RMA Anemia, unspecified type (Primary Dx) 6 7:20 PM EDT - 6 11:59 PM EDT Hospital Encounter [facility] [place] [address] Pelvic pain; Insomnia, persistent; Acquired hypothyroidism; Unspecified essential hypertension; Chronic fatigue; Hyperglycemia Discharge Disposition: Home or Self Care 6 1:10 PM EDT Office Visit [facility] [facility] [address] [place] [address] Cornejo, Viral V, DO Pelvic pain (Primary Dx); Insomnia, persistent; Acquired hypothyroidism; Unspecified essential hypertension; Chronic fatigue; Hyperglycemia; Flu vaccine need 6 Patient Outreach [facility] [address] [place] [address] Cornejo, Viral V, DO ED Follow-Up Call 6 1:26 PM EDT - 6 3:45 PM EDT Emergency [facility] [place] [address] Iftikhar Pike MD Nonspecific chest pain (Primary Dx); Cervical radicular pain Discharge Disposition: Home or Self Care 6 [facility] [address] [place] [address] Cornejo, Viral V, DO Medication Refill [address] [facility] [address] [place] [address] Cornejo, Viral V, DO Medication Refill 6 Telephone [facility] [address] [place] [address] Cornejo, Viral V, DO Medication Management 6 Telephone [facility] [address] [place] [address] Cornejo, Viral V, DO Results 6 Orders Only [facility] [address] [address] Cornejo, Viral V, DO Osteoarthritis, unspecified osteoarthritis type, unspecified site (Primary Dx) 6 9:01 AM EDT - 6 11:59 PM EDT Hospital Encounter [facility] [address] [place] [address] Diabetes type 2, controlled ([facility]) Discharge Disposition: Home or Self Care 6 9:00 AM EDT Hospital Encounter [facility] [address] [place] [address] Right knee pain Discharge Disposition: Home or Self Care [address] [address] Senait Martínez RMA Other 6 10:41 PM EDT - 6 11:59 PM EDT Hospital Encounter [facility] [place] [address] Encounter for medication management Discharge Disposition: Home or Self Care 6 1:20 PM EDT Office Visit [address] [address] Cornejo, Viral V, DO WILLIE (generalized anxiety disorder) (Primary Dx); Encounter for medication management; Insomnia, persistent; Diabetes type 2, controlled (HCC); EIC (epidermal inclusion cyst); Right knee pain; Dysuria 6 Refill [facility] [address] [place] [address] Sandy Chen LPN Medication Refill [address] [address] Cornejo, Viral V, DO Medication Refill [address] [address] Sandy Chen LPN Other 6 Refill [facility] [place] [address] Cornejo, Viral V, DO Medication Refill 6 Refill [facility] [place] [address] Cornejo, Viral V, DO Medication Refill 6 Refill [facility] [place] [address] Cornejo, Viral V, DO Medication Refill 6 6:00 PM EDT - 6 11:59 PM EDT Hospital Encounter [facility] [address] [facility] [place], [place] [id number] Acquired hypothyroidism Discharge Disposition: Home or Self Care 6 3:50 PM EDT Office Visit [facility] [place] [place] [address] Cornejo, Viral V, DO WILLIE (generalized anxiety disorder) (Primary Dx); Gastroesophageal reflux disease without esophagitis; Unspecified essential hypertension; Fibromyalgia; Obesity, morbid, BMI 50 or higher (HCC); Acquired hypothyroidism; Coronary artery spasm 6 Telephone [facility] [place] [address] Lora Domínguez, EDGAR Other 6 Refill [facility] [place] [address] Cornejo, Viral V, DO Medication Refill 6 Refill [facility] [place] [address] Cornejo, Viral V, DO Medication Refill 6 Refill [facility] [place] [place] [address] Cornejo, Viral V, DO Medication Refill 6 Refill [facility] [place] [address] Cornejo, Viral V, DO Medication Refill 6 Refill [facility] [place] [address] Cornejo, Viral V, DO Medication Refill 6 2:28 PM EST - 6 11:59 PM EST Hospital Encounter [facility] PROCESSING [facility] [place] [address] Acquired hypothyroidism; Unspecified essential hypertension Discharge Disposition: Home or Self Care 6 9:00 AM EST Office Visit [facility] [address] [address] Sacha Keller MD WILLIE (generalized anxiety disorder) (Primary Dx); Acquired hypothyroidism; Unspecified essential hypertension; Achilles bursitis, left; MICHAEL (obstructive sleep apnea) 6 [address] [facility] [address] [address] Ramonita Noriega, RMA Medication Refill 5 Refill [facility] [address] [address] Jameson Terrazas, GAS DISPATCHER Medication Refill 5 Refill [facility] [address] [address] Cornejo, Viral V, DO Medication Refill 5 Refill [facility] [place] [address] Cornejo, Viral V, DO Medication Refill 5 Refill [facility] [place] [address] Cornejo, Viral V, DO Medication Refill 5 Refill [facility] [place] [address] Cornejo, Viral V, DO Medication Refill 5 Refill [facility] [address] [facility] [place] [address] Cornejo, Viral V, DO Medication Refill 5 Telephone [facility] [place] [facility] [address] [facility] [place] [address] Jameson Terrazas LPN Other 5 Refill [facility] [address] [facility] [place] [address] Jameson Terrazas LPN Medication Refill 5 Telephone [facility] [place] [address] [place] [address] Sandy Chen LPN Other 5 2:00 PM EDT Office Visit [facility] [place] [address] [facility] [place] [address] Cornejo, Viral V, DO WILLIE (generalized anxiety disorder) (Primary Dx); Acute bronchitis, unspecified organism; Need for influenza vaccination; Coronary artery spasm; Yeast vaginitis 5 Refill [facility] [place] [address] [facility] [place] [address] Cornejo, Viral V, DO Medication Refill 5 Refill [facility] [place] [address] [place] [address] Cornejo, Viral V, DO Medication Refill 5 Orders Only [facility] [place] [facility] [address] [place] [place] [address] Kathryn Chua RMA WILLIE (generalized anxiety disorder) (Primary Dx) 5 Telephone [facility] [place] [address] [place] [address] Cornejo, Viral V, DO Medication Refill 5 1:28 PM EDT - 5 11:59 PM EDT Hospital Encounter [address] [place] [address] Isaac Washington MD Knee pain, acute, right; Arthritis Discharge Disposition: Home or Self Care 5 Abstract [facility] [address] [place] [address] Ermias Vásquez, POSTULANT 5 Telephone [facility] [facility] [address] [facility] [place] [address] Sanna Quan, RMA Medication Change 5 Refill [facility] [facility] [address] [facility] [place] [address] Cornejo, Viral V, DO Medication Refill 5 Refill [facility] [place] [facility] [address] [facility] [place] [address] Cornejo, Viral V, DO Medication Refill 5 Refill [facility] [place] [address] [facility] [place] [address] Cornejo, Viral V, DO Medication Refill 5 3:15 PM EDT - 5 11:59 PM EDT Hospital Encounter [facility] [address] [place] [address] Right knee pain Discharge Disposition: Home or Self Care 5 Orders Only [facility] [place] [facility] [address] [facility] [place] [address] Ramonita Noriega, A Right knee pain (Primary Dx) 5 Refill [facility] [facility] [address] [place] [place] [address] Cornejo, Viral V, DO Medication Refill 5 Telephone [facility] [address] [place] [place] [address] Sandy Chen LPN Other 5 Refill [facility] [facility] [address] [facility] [place] [address] Cornejo, Viral V, DO Medication Refill 5 Refill [facility] [place] [facility] [address] [place] [place] [address] Tray Jennibillie Griffith, RMA Medication Refill 5 2:40 PM EDT Office Visit [facility] [address] [place] [address] Cornejo, Viral V, DO Unspecified essential hypertension (Primary Dx); Gastroesophageal reflux disease without esophagitis; Osteoarthritis of left knee, unspecified osteoarthritis type; DDD (degenerative disc disease), lumbar; Morbid obesity (HCC) 5 Refill [facility] [place] [address] [facility] [place] [address] Cornejo, Viral V, DO Medication Refill 5 Telephone [facility] [address] [facility] [place] [address] Cornejo, Viral V, DO Medication Refill 5 Refill [facility] [address] [place] [address] Cornejo, Viral V, DO Medication Refill 5 Orders Only [facility] [address] [facility] [place] [address] Sandy Chen LPN Nausea with vomiting (Primary Dx) 5 Telephone [facility] [facility] [address] [place] [place] [address] Sandy Chen LPN Medication Refill 5 Refill [facility] [place] [place] [address] Cornejo, Viral V, DO Medication Refill 5 [facility] [place] [address] Cornejo, Viral V, DO Other (referral-neuro) 5 7:42 PM EDT - 5 11:59 PM EDT Hospital Encounter [facility] PROCESSING [facility] [place] [address] Other abnormal glucose (Primary Dx); Unspecified hypothyroidism Discharge Disposition: Home or Self Care 5 2:40 PM EDT Clinical Support [facility] [address] [address] Jenni Hernandez, RMA Elevated glucose; Unspecified hypothyroidism [address] [address] Sandy Chen LPN Medication Refill 5 Orders Only [address] [address] Jenni Hernandez, RMA Elevated glucose (Primary Dx); Unspecified hypothyroidism 5 1:05 PM EDT - 5 11:59 PM EDT Hospital Encounter [facility] [address] [place] [address] Unspecified hypothyroidism; Routine check-up Discharge Disposition: Home or Self Care 5 Telephone [facility] [address] [address] Jenni Hernandez, RMA Medication Change [address] [address] Cornejo, Viral V, DO Medication Refill 5 8:38 PM EDT - 5 11:59 PM EDT Hospital Encounter [facility] [place] [address] Encounter for long-term (current) use of other medications Discharge Disposition: Home or Self Care 5 1:00 PM EDT Office Visit [address] [address] Cornejo, Viral V, DO WILLIE (generalized anxiety disorder) (Primary Dx); Unspecified hypothyroidism; Routine check-up; Chest pain, unspecified; Encounter for long-term (current) use of other medications; HTN (hypertension); Migraine; Morbid obesity (HCC); Esophageal reflux; Fibromyalgia 5 Telephone [facility] [place] [address] [facility] [place] [address] Cornejo, Viral V, DO Other 5 Telephone [facility] [place] [address] [facility] [place] [address] Sandy Chen LPN Medication Refill 5 12:48 PM EST - 5 11:59 PM EST Hospital Encounter [facility] MRI [address] [place] [address] Rajesh Roca MD Thoracic or lumbosacral neuritis or radiculitis, unspecified Discharge Disposition: Home or Self Care 5 Refill [facility] [facility] [address] [place] [place] [address] Cornejo, Viral V, DO Medication Refill 5 3:20 PM EST Office Visit [facility] [place] [facility] [address] [facility] [place] [address] Cornejo, Viral V, DO WILLIE (generalized anxiety disorder) (Primary Dx); Vertigo; HTN (hypertension); Rib pain on right side 5 Refill [facility] [place] [address] [place] [place] [address] Cornejo, Viral V, DO Medication Refill 5 Refill [facility] [place] [facility] [address] [facility] [place] [address] Cornejo, Viral V, DO Medication Refill 5 1:15 PM EST - 5 11:59 PM EST Hospital Encounter [facility] Mammography [address] [place] [address] Cornejo, Viral V, DO Breast calcification, right Discharge Disposition: Home or Self Care 4 Telephone [facility] [place] [address] [place] [place] [address] Sandy Chen LPN Medication Refill 4 Orders Only [facility] [place] [facility] [address] [place] [address] Tesha Ramon Scribe Fibromyalgia (Primary Dx); Sleep deprivation 4 Telephone [facility] [address] [place] [address] Rosio Head RN Abnormal Radiology 4 Orders Only [facility] [place] [facility] [address] [place] [address] Cornejo, Viral V, DO Osteoarthritis of left knee (Primary Dx) 4 Orders Only [facility] [facility] [address] [facility] [place] [address] Cornejo, Viral V, DO Osteoarthritis of knee (Primary Dx); Abnormal mammogram 4 2:17 PM EST - 4 11:59 PM EST Hospital Encounter [facility] [address] [place] [address] Cornejo, Viral V, DO Left arm pain; Knee pain, acute, unspecified laterality Discharge Disposition: Home or Self Care 4 2:15 PM EST - 4 2:16 PM EST Hospital Encounter [facility]amm[facility] [address] [place] [address] Cornejo, Viral V, DO Other screening mammogram Discharge Disposition: Home or Self Care 4 Orders Only [facility] [place] [address] [facility] [place] [address] Jameson Terrazas LPN Knee pain, acute, unspecified laterality (Primary Dx) 4 Patient Outreach [facility] [address] [facility] [place] [address] Dennise Arboleda Advice Only 4 Refill [facility] [place] [facility] [address] [facility] [place] [address] Jameson Terrazas LPN Other 4 1:10 PM EST Office Visit [facility] [address] [facility] [place] [address] Cornejo, Viral V, DO WILLIE (generalized anxiety disorder) (Primary Dx); Migraine; Bilateral lower abdominal cramping; GERD (gastroesophageal reflux disease); Dysphagia; DDD (degenerative disc disease); Left arm pain 4 Telephone [facility] [facility] [address] [place] [address] Jenni Hernandez, RMA Migraine 4 Telephone [facility] [place] [facility] [address] [place] [address] Jameson Terrazas LPN Medication Refill 4 Telephone [facility] [place] [facility] [address] [place] [address] Sandy Chen LPN Other 4 Telephone [facility] [facility] [address] [place] [address] Jameson Terrazas LPN Other 4 8:21 PM EDT - 4 11:59 PM EDT Hospital Encounter [facility] PROCESSING [facility] [place] [address] Malar rash; Postmenopausal Discharge Disposition: Home or Self Care 4 1:50 PM EDT Office Visit [facility] [place] [facility] [address] [facility] [place] [address] Cornejo, Viral V, DO Malar rash (Primary Dx); UTI (lower urinary tract infection); Flank pain; Need for prophylactic vaccination and inoculation against influenza; WILLIE (generalized anxiety disorder); Migraine; Postmenopausal 4 Refill [facility] [facility] [address] [facility] [address] Cornejo, Viral V, DO Medication Refill 4 Telephone [facility] [place] [facility] [address] [facility] [address] Sandy Chen LPN Other 4 Telephone [facility] [facility] [address] [facility] [place] [address] Cornejo, Viral V, DO Other (referral-Dr Shankar) 4 Telephone [facility] [facility] [address] [place] [address] Den Kingston MA Other 4 Refill [facility] [place] [facility] [address] [place] [address] Jenni Feliz, [facility] Other 4 Telephone [facility] [place] [facility] [address] [place] [address] Talat Terrazasunita, GAS DISPATCHER Medication Refill 4 Telephone [facility] [place] [facility] [address] [place] [address] Den Kingston MA Medication Refill 4 Telephone [facility] [facility] [address] [place] [address] Talat Terrazasunita, GAS DISPATCHER Other 4 Telephone [facility] [facility] [address] [place] [address] [place], GAS DISPATCHER Other 4 Refill [facility] [place] [facility] [address] [place] [address] [place], GAS DISPATCHER Medication Refill 4 1:10 PM EDT Office Visit [facility] [facility] [address] [place] [address] Cornejo, Viral V, DO Type II or unspecified type diabetes mellitus without mention of complication, not stated as uncontrolled (HCC) (Primary Dx); WILLIE (generalized anxiety disorder); UTI (urinary tract infection); Urgency of urination; GERD (gastroesophageal reflux disease) 4 Telephone [facility] [place] [facility] [address] [place] [address] Ramonita Noriega, [facility] Other 4 Telephone [facility] [place] [facility] [address] [place] [address] Ramonita Noriega, A Medication Refill 4 Telephone [facility] [facility] [address] [place] [address] Jenni Hernandez, RMA Medication Management 4 3:50 PM EDT - 4 11:59 PM EDT Hospital Encounter [facility] [address] [facility] [place] [address] Acute renal insufficiency (Primary Dx) Discharge Disposition: Home or Self Care 4 2:40 PM EDT Office Visit [facility] [place] [facility] [address] [place] [address] Cornejo, Viral V, DO WILLIE (generalized anxiety disorder) (Primary Dx); HTN (hypertension); Acute renal insufficiency; Unspecified hypothyroidism; Fibromyalgia; GERD (gastroesophageal reflux disease); IBS (irritable bowel syndrome); Abdominal pain, other specified site; Dysuria; UTI (lower urinary tract infection) 4 1:46 AM EDT - 4 1:35 PM EDT Hospital Encounter [facility] [place] [address] Nisa Townsend MD Acute renal insufficiency (Primary Dx); Chest pain, unspecified; Chronic pain; Fibromyalgia; Type II or unspecified type diabetes mellitus without mention of complication, not stated as uncontrolled (HCC); Unspecified essential hypertension; Unspecified hypothyroidism Discharge Disposition: Home or Self Care 4 9:50 PM EDT - 4 12:58 AM EDT Emergency [facility] [address] [facility] [place], [place] [id number] Jared Jmaes MD Chest pain (Primary Dx); Chronic pain Discharge Disposition: Short Term Hospital 4 Telephone [facility] [place] [facility] [address] [place] [address] Jose Cornejo V, DO Referral 4 Telephone [facility] [address] [place] [address] Sandy Chen LPN Other 4 7:31 PM EDT - 4 11:59 PM EDT Hospital Encounter [facility] PROCESSING [facility] [place] [address] Type II or unspecified type diabetes mellitus without mention of complication, not stated as uncontrolled (HCC); Pruritic rash; Unspecified hypothyroidism Discharge Disposition: Home or Self Care 4 4:50 PM EDT Office Visit [facility] [place] [address] [place] [address] Cornejo, Viral V, DO Type II or unspecified type diabetes mellitus without mention of complication, not stated as uncontrolled (HCC) (Primary Dx); UTI (urinary tract infection); Other screening mammogram; Pruritic rash; Unspecified hypothyroidism 4 Telephone [facility] [address] [facility] [address] [place] [address] Kristopher Crump MD Other 4 5:07 PM EDT - 4 6:36 PM EDT Emergency [facility] [address] [place] [address] Dania Lovell MD Heel spur (Primary Dx) Discharge Disposition: Home or Self Care 4 Refill [facility] [address] [place] [address] Jameson Terrazas LPN Other 4 Refill [facility] [facility] [address] [place] [address] Cornejo, Viral V, DO Medication Refill 4 3:26 PM EST - 4 5:11 PM EST Emergency [facility] [address] [place] [address] Debbie Figueroa MD Migraine headache (Primary Dx) Discharge Disposition: Home or Self Care 4 Telephone [facility] [place] [facility] [address] [place] [address] Cornejo, Viral V, DO Other 4 Telephone [facility] [facility] [address] [place] [address] Sandy Chen LPN Other 4 4:00 PM EST Office Visit [facility] [facility] [address] [place] [address] Cornejo, Viral V, DO WILLIE (generalized anxiety disorder) (Primary Dx); Nausea with vomiting; Encounter for long-term (current) use of other medications; Unspecified essential hypertension; Unspecified hypothyroidism 4 Telephone [facility] [place] [facility] [address] [place] [address] Jenni Hernandez, Karen Anxiety 4 Refill [facility] [place] [facility] [address] [place] [address] Jameson Terrazas LPN Medication Refill 3 Telephone [facility] [facility] [address] [place] [address] Jameson Terrazas LPN Other 3 Telephone [facility] [place] [facility] [address] [place] [address] Ramonita Noriega RMA Other 3 Telephone [facility] [address] [place] [address] Nasim Medeiros MD Other 3 Telephone [facility] [place] [facility] [address] [place] [address] Cornejo, Viral V, DO Other 3 Orders Only [facility] [place] [facility] [address] [place] [address] Sandy Chen LPN ZENG (headache) (Primary Dx) 3 Refill [facility] [place] [facility] [address] [place] [address] Cornejo, Viral V, DO Medication Refill 3 3:28 PM EST - 3 11:59 PM EST Hospital Encounter [facility] [address] [place] [address] Kristopher Crump MD Syncope; Type II or unspecified type diabetes mellitus without mention of complication, not stated as uncontrolled (HCC); Unspecified essential hypertension; Chest pain, unspecified Discharge Disposition: Home or Self Care 3 2:34 PM EST - 3 3:27 PM EST Hospital Encounter [facility] [address] [place] [address] Cornejo, Viral V, DO DDD (degenerative disc disease); Lumbar strain Discharge Disposition: Home or Self Care 3 1:45 PM EST Office Visit [facility] [place] [address] [place] [address] Kristopher Crump MD Syncope (Primary Dx); Type II or unspecified type diabetes mellitus without mention of complication, not stated as uncontrolled (HCC); Unspecified essential hypertension; Chest pain, unspecified 3 1:30 PM EST Office Visit [facility] [facility] [address] [facility] [place] [address] Cornejo, Viral V, DO WILLIE (generalized anxiety disorder) (Primary Dx); Urgency of urination; DDD (degenerative disc disease); Lumbar strain; Sinusitis; OM (otitis media); Foot pain 3 Telephone [facility] [place] [facility] [address] [facility] [place] [address] Sandy Chen LPN Medication Refill 3 Refill [facility] [facility] [address] [facility] [place] [address] Jameson Terrazas LPN Medication Refill 3 Refill [facility] [facility] [address] [facility] [place] [address] Jenni Feliz, RMA Other 3 Refill [facility] [place] [facility] [address] [place] [address] Jenni Feliz, RMA Medication Refill 3 Orders Only [facility] [place] [facility] [address] [facility] [place] [address] Sandy Chen LPN HTN (hypertension) (Primary Dx) 3 Telephone [facility] [place] [address] [place] [address] Kristopher Crump MD Other 3 Telephone [facility] [facility] [address] [facility] [place] [address] Sandy Chen LPN Other 3 Abstract [facility] [facility] [address] [facility] [place] [address] Sacha Keller MD 3 Refill [facility] [facility] [address] [facility] [place] [address] Jameson Terrazas LPN Other 3 Refill [facility] [place] [facility] [address] [facility] [place] [address] Jenni Feliz, RMA Medication Refill 3 11:00 AM EDT Office Visit [facility] [address] [place] [address] Nasim Medeiros MD Syncope (Primary Dx); Borderline diabetes mellitus; Obesity 3 Orders Only [facility] [facility] [address] [facility] [place] [address] Jenni Feliz, RMA Unspecified hypothyroidism (Primary Dx) 3 12:16 PM EDT - 3 11:59 PM EDT Hospital Encounter [facility] [address] [place] [address] Cornejo, Viral V, DO Syncopal episodes Discharge Disposition: Home or Self Care 3 12:15 PM EDT Hospital Encounter [facility] [address] [place] [address] Cornejo, Viral V, DO Syncopal episodes Discharge Disposition: Home or Self Care 3 12:15 PM EDT Hospital Encounter [facility] [address] [place] [address] Cornejo, Viral V, DO Syncopal episodes Discharge Disposition: Home or Self Care 3 Orders Only [facility] [place] [facility] [address] [facility] [place] [address] Jenni Hernandez, EDGAR Gout (Primary Dx); Esophageal reflux; Unspecified hypothyroidism 3 7:26 PM EDT - 3 11:59 PM EDT Hospital Encounter [facility] PROCESSING [facility] [place] [address] Syncopal episodes; Unspecified essential hypertension Discharge Disposition: Home or Self Care 3 1:30 PM EDT Office Visit [facility] [place] [facility] [address] [place] [address] Cornejo, Viral V, DO Syncopal episodes (Primary Dx); Need for influenza vaccination; Labyrinthitis, unspecified; Unspecified essential hypertension; WILLIE (generalized anxiety disorder); Dysuria; UTI (lower urinary tract infection) 3 Telephone [facility] [place] [facility] [address] [facility] [place] [address] Jameson Terrazas, GAS DISPATCHER Medication Refill 3 Telephone [facility] [place] [facility] [address] [facility] [place] [address] Jameson Terrazas, GAS DISPATCHER Medication Refill 3 Orders Only [facility] [place] [facility] [address] [facility] [place] [address] Jenni Hernandez, EDGAR Thrush (Primary Dx) 3 Telephone [facility] [place] [facility] [address] [facility] [place] [address] Jameson Terrazas, GAS DISPATCHER Other 3 Telephone [facility] [place] [facility] [address] [place] [address] Jameson Terrazas, JASIEL Medication Refill 3 Telephone [facility] [place] [facility] [address] [place] [address] Jameson Terrazas, GAS DISPATCHER Other 3 Telephone [facility] [place] [facility] [address] [place] [address] MkTalatangelicaoswald, JASIEL Other 3 Refill [facility] [place] [facility] [address] [place] [address] Ar Vaca MD Medication Refill 3 Refill [facility] [place] [facility] [address] [place] [address] Cornejo, Viral V, DO Medication Refill 3 Refill [facility] [place] [facility] [address] [place] [address] Ar Vaca MD Medication Refill 3 Telephone [facility] [place] [facility] [address] [place] [address] MkTalatsuresh, JASIEL Other 3 11:49 AM EDT - 3 11:59 PM EDT Hospital Encounter [facility] [address] [facility] [place] [address] Dysuria (Primary Dx); Type II or unspecified type diabetes mellitus without mention of complication, not stated as uncontrolled (HCC); UTI (lower urinary tract infection); Unspecified essential hypertension; Nausea with vomiting; Chest pain, unspecified; Labyrinthitis, unspecified; Esophageal reflux; Unspecified hypothyroidism; Coronary artery spasm; Fibromyalgia; Left knee DJD; WILLIE (generalized anxiety disorder); Obesity; ZENG (headache) Discharge Disposition: Home or Self Care 3 Refill [facility] [facility] [address] [place] [address] Ar Vaca MD Medication Refill 3 4:10 PM EDT Office Visit [facility] [place] [facility] [address] [place] [address] Cornejo, Viral V, DO Unspecified essential hypertension (Primary Dx); Dysuria; UTI (lower urinary tract infection); Atypical mole; ZENG (headache); Diabetes mellitus type 2, controlled ([facility]) 3 Telephone [facility] [place] [facility] [address] [place] [address] Sandy Chen, JASIEL Other 3 Telephone [facility] [place] [facility] [address] [place] [address] Jameson Terrazas GAS DISPATCHER Other 3 Telephone [facility] [place] [facility] [address] [facility] [place] [address] Jameson Terrazas GAS DISPATCHER Other 3 7:53 PM EDT - 3 11:59 PM EDT Hospital Encounter [facility] PROCESSING [facility] [place] [place] [address] Other abnormal blood sanitary chemist ry Discharge Disposition: Home or Self Care 3 4:50 PM EDT Clinical Support [facility] [place] [facility] [address] [place] [address] Zulema Hurtado MA Other abnormal blood chemistry (Primary Dx) 3 Telephone [facility] [place] [facility] [address] [facility] [place] [address] Jameson [facility] GAS DISPATCHER Other 3 Telephone [facility] [facility] [address] [facility] [place] [address] Ramonita Noriega RMA Other 3 8:42 PM EDT - 3 11:59 PM EDT Hospital Encounter [facility] LAB VALERIO PROCESSING [facility] LETICIA [place] [address] Abdominal pain; RUQ abdominal pain; Unspecified hypothyroidism Discharge Disposition: Home or Self Care 3 1:30 PM EDT Office Visit [facility] [facility] [address] [place] [address] Ar Vaca MD Fibromyalgia (Primary Dx); WILLIE (generalized anxiety disorder); Abdominal pain; Unspecified hypothyroidism; RUQ abdominal pain; UTI (lower urinary tract infection); Vaginal yeast infection 3 Telephone [facility] [place] [address] [facility] [place] [address] Ar Vaca MD Medication Refill (Rx Right source ) 3 Telephone [facility] [place] [facility] [address] [facility] [place] [address] Sandy Chen LPN Medication Refill 3 Orders Only [facility] [place] [address] [facility] [place] [address] Sandy Chen LPN Unspecified hypothyroidism (Primary Dx) 3 7:16 PM EDT - 3 11:59 PM EDT Hospital Encounter EDG LAB VALERIO PROCESSING [facility] [place] [address] Hypothyroidism Discharge Disposition: Home or Self Care 3 4:50 PM EDT Office Visit [facility] [place] [address] [facility] [place] [address] Cornejo, Viral V, DO Hypothyroidism (Primary Dx); DDD (degenerative disc disease); Low back pain; Insomnia 3 Orders Only [facility] [place] [address] [facility] [place] [address] Jenni Hernandez, JANELLEA Gout (Primary Dx) 3 Orders Only [facility] [facility] [address] [facility] [place] [address] Amanda Espinoza, EDGAR Esophageal reflux (Primary Dx) 3 Telephone [facility] [place] [facility] [address] [facility] [place] [address] Jameson Terrazas LPN Other; Visit Follow Up 3 Refill [facility] [place] [facility] [address] [place] [address] Ar Vaca MD Medication Refill 3 2:40 PM EDT Office Visit [facility] [place] [facility] [address] [place] [address] Karen Gonzalez MD Flu syndrome (Primary Dx); Fever 3 Telephone [facility] [place] [facility] [address] [place] [address] Ramonita Noriega, RMA Other 3 Telephone [facility] [place] [facility] [address] [place] [address] NoriegaRamonita le, A Medication Refill 3 Telephone [facility] [place] [facility] [address] [place] [address] Sandy Chen, GAS DISPATCHER Other 3 Telephone [facility] [place] [facility] [address] [place] [address] Jameson Terrazas, GAS DISPATCHER Other 3 Telephone [facility] [facility] [address] [place] [address] Alexis Amanda Chanelle, A Other 3 3:30 PM EST Office Visit [facility] [place] [facility] [address] [place] [address] Ar Vaca MD Acute otitis media, bilateral (Primary Dx); Unspecified essential hypertension; Seasonal allergies; Vaginal yeast infection 2 Refill [facility] [place] [facility] [address] [place] [address] Ar Vaca MD Medication Refill 2 11:10 AM EST Office Visit [facility] [place] [facility] [address] [place] [address] Ar Vaca MD WILLIE (generalized anxiety disorder); Fibromyalgia; Nausea with vomiting; Encounter for long-term (current) use of other medications 2 Refill [facility] [place] [facility] [address] [place] [place] [address] Ar Vaca MD Medication Refill 2 Telephone [facility] [place] [facility] [address] [facility] [place] [address] Den Kingston, DANIELA Vaginitis 2 Telephone [facility] [place] [address] [facility] [place] [address] Amanda Espinoza, RMA Other 2 Telephone [facility] [place] [address] [facility] [place] [address] Ar Vaca MD Medication Refill 2 Refill [facility] [place] [address] [place] [place] [address] Ar Vaca MD Medication Refill 2 11:00 AM EDT Office Visit [facility] [address] [address] Chaitanya Sanchez MD Abdominal pain (Primary Dx) 2 Refill [facility] [place] [address] [place] [place] [address] Jameson Terrazas LPN Other 2 8:11 PM EDT - 2 11:59 PM EDT Hospital Encounter EDG LAB VALERIO PROCESSING [facility] [place] [address] Unspecified essential hypertension; Perimenopausal symptoms; Hyperglycemia; Hypothyroid; Vitamin D deficiency; Abnormal laboratory test result Discharge Disposition: Home or Self Care 2 2:20 PM EDT Office Visit [facility] [facility] [address] [place] [place] [address] Ar Vaca MD Hypothyroid (Primary Dx); WILLIE (generalized anxiety disorder); Flu vaccine need; Unspecified essential hypertension; Vitamin D deficiency; Hyperglycemia; Perimenopausal symptoms 2 Refill [facility] [facility] [address] [place] [address] Ar Vaca MD Medication Refill 2 10:23 AM EDT - 2 11:59 PM EDT Hospital Encounter [address] [place], [place] [id number] Chaitanya Sanchez MD RUQ pain Discharge Disposition: Home or Self Care 2 Orders Only [facility] [facility] [address] [facility] [place] [address] NoriegaRamonita le, [facility] Esophageal reflux; Hypothyroid 2 Refill [facility] [place] [facility] [address] [place] [place] [address] Ar Vaca MD Medication Refill 2 3:00 PM EDT Office Visit [facility] [address] [place] [address] Chaitanya Sanchez MD RUQ pain (Primary Dx) 2 Orders Only [facility] [place] [address] [place] [place] [address] Ar Vaca MD UTI (lower urinary tract infection); Vaginal yeast infection 2 Telephone [facility] [place] [address] [place] [place] [address] Sandy Chen LPN Results 2 Refill [facility] [place] [address] [place] [place] [address] Ar Vaca MD Medication Refill 2 5:11 PM EDT - 2 6:59 PM EDT Emergency [facility] [place] [address] Hilary Quinonez MD Abdominal pain, right upper quadrant; Type II or unspecified type diabetes mellitus without mention of complication, not stated as uncontrolled (HCC) Discharge Disposition: Home or Self Care 2 Refill [facility] [place] [address] [place] [address] Ar Vaca MD Medication Refill 2 Refill [facility] [facility] [address] [place] [place] [address] Ar Vaca MD Medication Refill 2 Refill [facility] [place] [address] [place] [place] [address] Ar Vaca MD Medication Refill 2 Telephone [facility] [place] [address] [place] [place] [address] Ar Vaca MD Medication Refill 2 Refill [facility] [address] [place] [place] [address] Ar Vaca MD Medication Refill [address] [facility] [facility] [address] [place] [place] [address] Sandy Chen LPN Medication Refill 2 5:20 PM EDT Office Visit [facility] [facility] [address] [place] [place] [address] Ar Vaca MD Esophageal reflux; WILLIE (generalized anxiety disorder); Unspecified essential hypertension; Unspecified hypothyroidism; Health maintenance examination 2 Refill [facility] [place] [address] [place] [address] Ar Vaca MD Medication Refill 2 Telephone [facility] [facility] [address] [place] [place] [address] Ar Vaca MD Other 2 1:49 PM EDT - 2 11:59 PM EDT Hospital Encounter [address] [place] [address] Ar Vaca MD Lumbago Discharge Disposition: Home or Self Care 2 Telephone [facility] [facility] [address] [facility] [place] [address] Ar Vaca MD Other 2 Telephone [facility] [facility] [address] [facility] [place] [address] Lora Domínguez RMA Medication Refill 2 Refill [facility] [facility] [address] [facility] [place] [address] Ar Vaca MD Medication Refill 2 Orders Only [facility] [facility] [address] [facility] [place] [address] Ar Vaca MD Lumbago (Primary Dx) 2 Telephone [facility] [facility] [address] [place] [address] Jameson Terrazas LPN Other 2 2:28 PM EDT - 2 3:52 PM EDT Emergency [facility] [address] [facility]. [place], [place] [address] Dania Loving, Degenerative disc disease Discharge Disposition: Home or Self Care 2 Telephone [facility] [facility] [address] [facility] [place] [address] Lora Domínguez RMA Other 2 Telephone [facility] [place] [facility] [address] [facility] [place] [address] Lora Domínguez RMA Other 2 Telephone [facility] [place] [facility] [address] [facility] [place] [address] Ar Vaca MD Referral 2 Telephone [facility] [place] [facility] [address] [facility] [place] [address] Jameson Terrazas LPN Medication Refill 2 Orders Only [facility] [place] [facility] [address] [place] [address] Ar Vaca MD Left knee DJD (Primary Dx); Fibromyalgia; ZENG (headache) 2 Orders Only [facility] [place] [facility] [address] [place] [address] Mckayla Roach MA Thrush (Primary Dx) 2 Telephone [facility] [place] [facility] [address] [place] [address] Sandy Chen LPN Other 2 2:30 PM EST Office Visit [facility] [place] [facility] [address] [place] [address] Ar Vaca MD Left knee DJD (Primary Dx); Fibromyalgia; WILLIE (generalized anxiety disorder); Obesity; Closed head injury; Chest wall contusion; ZENG (headache) 2 Telephone [facility] [place] [facility] [address] [place] [address] Ar Vaca MD Fall 2 Telephone [facility] [place] [facility] [address] [place] [address] Lora Domínguez Karen Other 2 Telephone [facility] [facility] [address] [place] [address] Ar Vaca MD Medication Management 2 1:50 PM EST Office Visit [facility] [facility] [address] [place] [address] Ar Vaca MD Left knee DJD (Primary Dx); Migraine; Fibromyalgia; WILLIE (generalized anxiety disorder) 2 Telephone [facility] [place] [facility] [address] [place] [address] Loar Domínguez Karen Other 2 Telephone [facility] [facility] [address] [place] [address] Lora Domínguez, Karen Other 2 Refill [facility] [facility] [address] [place] [address] Ar Vaca MD Medication Refill 2 10:45 AM EST - 2 11:30 AM EST Surgery [facility] [address] [place] [address] Cathleen Das ESOPHAGOGASTRODUODENOSCOPY 2 9:10 AM EST - 2 11:35 AM EST Hospital Encounter [facility] [address] [place] [address] Cathleen Das Discharge Disposition: Home or Self Care 2 Telephone [facility] [facility] [address] [facility] [address] Lora Domínguez, Karen Other 2 Refill [facility] [facility] [address] [facility] [address] Cornejo, Viral V, DO Medication Refill 2 Refill [facility] [place] [facility] [address] [place] [address] Ar Vaca MD Medication Refill 1 Telephone [facility] [place] [facility] [address] [facility] [place] [address] Sandy Chen LPN Other 1 Telephone [facility] [facility] [address] [place] [address] Ar Vaca MD Other 1 1:51 PM EST - 1 11:59 PM EST Hospital Encounter [facility] [address] [place] [address] Ar Vaca MD Recurrent sinusitis Discharge Disposition: Home or Self Care 1 2:50 PM EST Office Visit [facility] [facility] [address] [place] [address] Ar Vaca MD Left knee DJD (Primary Dx); Migraine; Fibromyalgia; Recurrent sinusitis 1 Telephone [facility] [place] [address] [facility] [place] [address] Ada Antunez MA Other 1 Telephone [facility] [facility] [address] [facility] [place] [address] Ar Vaca MD Medication Refill 1 1:23 PM EST - 1 11:59 PM EST Hospital Encounter [facility] [address] [facility] [place] [address] Ar Vaca MD Other screening mammogram Discharge Disposition: Home or Self Care 1 Telephone [facility] [place] [place] [address] Ada Antunez MA Other 1 1:30 PM EDT Office Visit [facility] [facility] [address] [facility] [place] [address] Ar Vaca MD Abdominal pain (Primary Dx); Urgency of urination; Needs flu shot; Weight loss, unintentional; Nausea with vomiting 1 Telephone [facility] [facility] [address] [facility] [place] [address] Ar Vaca MD Other 1 Telephone [facility] [facility] [address] [facility] [place] [address] Ar Vaca MD Medication Management (verify directions on Allopurinol) 1 Telephone [facility] [place] [address] [facility] [place] [address] Gabbie Morris MA Medication Refill 1 3:39 PM EDT - 1 7:48 PM EDT Emergency [facility] [place] [address] Efrem Hampton MD Abdominal pain, generalized Discharge Disposition: Home or Self Care 1 Telephone [facility] [place] [address] [place] [place] [address] Mckayla Roach MA Medication Refill 1 Telephone [facility] [place] [address] [place] [place] [address] Gabbie Morris MA Medication Refill 1 Refill [facility] [place] [address] [facility] [place] [address] Ar Vaca MD Medication Refill 1 Telephone [facility] [facility] [address] [facility] [place] [address] Lora Domínguez RMA Medication Refill 1 8:36 PM EDT - 1 11:59 PM EDT Hospital Encounter [facility] LAB VALERIO PROCESSING [facility] [place] [address] Acute sinusitis; Nausea & vomiting; Weight loss Discharge Disposition: Home or Self Care [address] [facility] [address] [address] [place] [address] Ar Vaca MD Referral 1 11:20 AM EDT Office Visit [facility] [place] [address] Ar Vaca MD Migraine; Fibromyalgia; WILLIE (generalized anxiety disorder); Acute sinusitis; Weight loss; Nausea & vomiting; Nausea with vomiting 1 Refill [facility] [place] [address] [place] [place] [address] Ar Vaca MD Medication Refill 1 Refill [facility] [facility] [address] [place] [place] [address] Jameson Terrazas LPN Medication Refill 1 Refill [facility] [place] [facility] [address] [place] [address] Ar Vaca MD Medication Refill 1 Refill [facility] [place] [facility] [address] [facility] [place] [address] Jameson Terrazas, GAS DISPATCHER Medication Refill 1 Telephone [facility] [place] [facility] [address] [place] [address] Alma Ornelas, GAS DISPATCHER Medication Refill 1 Refill [facility] [facility] [address] [facility] [place] [address] Ar Vaca MD Medication Refill 1 2:00 PM EDT Office Visit [facility] [place] [facility] [address] [facility] [place] [address] Ar Vaca MD Migraine; Fibromyalgia; Nausea with vomiting; Hypothyroid; Dependent edema 1 Refill [facility] [place] [facility] [address] [facility] [place] [address] Ar Vaca MD Medication Refill 1 Telephone [facility] [facility] [address] [facility] [place] [address] Ada Antunez MA Other 1 Telephone [facility] [facility] [address] [facility] [place] [address] Lora Domínguez RMA Medication Refill 1 2:20 PM EDT Clinical Support [facility] [facility] [address] [facility] [place] [address] Melia Love MA Abdominal pain, other specified site (Primary Dx) 1 Refill [facility] [place] [facility] [address] [facility] [place] [address] Mckayla Roach MA Medication Refill 1 Telephone [facility] [facility] [address] [facility] [place] [address] Ar Vaca MD Medication Refill 1 Refill [facility] [place] [place] [address] Ar Vaca MD Medication Refill 1 Refill [facility] [place] [place] [address] Cornejo, Viral V, DO Medication Refill 1 Refill [facility] [facility] [address] [facility] [place] [address] Ar Vaca MD Medication Refill 1 Telephone [facility] [place] [place] [address] Ar Vaca MD Medication Refill 1 8:11 PM EDT - 1 11:59 PM EDT Hospital Encounter ED[facility] LAB VALERIO PROCESSING [facility] [place] [address] Unspecified labyrinthitis Discharge Disposition: Home or Self Care 1 2:50 PM EDT Clinical Support [facility] [place] [place] [address] Mckayla Roach MA Unspecified labyrinthitis (Primary Dx) 1 Orders Only [facility] [place] [address] Ar Vaca MD ZENG (headache) (Primary Dx); FHx: osteopenia 1 Refill [facility] [place] [place] [address] Ar Vaca MD Medication Refill 1 2:00 PM EDT Office Visit [facility] [place] [place] [address] Cornejo, Viral V, DO Migraine; Fibromyalgia; Anxiety; Nausea with vomiting; Acute pharyngitis; Acute sinusitis; Rash 1 9:13 AM EDT - 1 12:58 PM EDT Emergency [facility] [address] [place] [address] Della Perez MD Chest pain; Post concussive syndrome; Post-traumatic headache, unspecified Discharge Disposition: Home or Self Care 1 Telephone [facility] [place] [facility] [address] [place] [address] Melia Love MA Other 1 Telephone [facility] [place] [facility] [address] [place] [address] Gabbie Morris MA Other 1 3:30 PM EDT - 1 11:59 PM EDT Hospital Encounter [facility] [address] [place] [address] Foot pain Discharge Disposition: Home or Self Care 1 Telephone [facility] [facility] [address] [place] [address] Sandy Chen LPN Other 1 Telephone [facility] [place] [facility] [address] [place] [address] Sandy Chen, GAS DISPATCHER Medication Refill 1 2:57 PM EDT - 1 3:29 PM EDT Hospital Encounter [facility] [address] [place] [address] Ar Vaca MD Loss of height; Symptomatic menopausal or female climacteric states Discharge Disposition: Home or Self Care 1 2:25 PM EDT - 1 4:06 PM EDT Emergency [facility] [address] 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 ) 1 Telephone [facility] [facility] [address] [place] [address] Gabbie Morris MA Other 1 3:00 PM EST Office Visit [facility] [place] [address] [place] [address] Ar Vaca MD Fibromyalgia (Primary Dx); Migraine; Anxiety; Nausea with vomiting 1 Telephone [facility] [place] [facility] [address] [place] [address] Dennise Arboleda Medication Refill (duplicate from 09/01/10) 1 Telephone [facility] [place] [address] [place] [address] Dennise Arboleda Medication Refill 1 Telephone [facility] [facility] [address] [place] [address] Scarlett Cee R Results 1 2:27 PM EST - 1 11:59 PM EST Hospital Encounter ED[facility] LAB VALERIO PROCESSING [facility] [place] [address] Ar Vaca MD Unspecified essential hypertension; Unspecified hypothyroidism Discharge Disposition: Home or Self Care 1 1:40 PM EST Office Visit [facility] [place] [address] [place] [address] Ar Vaca MD Fibromyalgia (Primary Dx); Migraine; Hypothyroid; Esophageal reflux; Unspecified essential hypertension; Acute sinusitis 0 Refill [facility] [place] [facility] [address] [place] [address] Ar Vaca MD Medication Refill 0 3:00 PM EST Office Visit [facility] [place] [facility] [address] [place] [address] Ar Vaca MD Fibromyalgia (Primary Dx); Migraine; Dizziness; Acute sinusitis 0 Refill [facility] [place] [facility] [address] [place] [address] Zbigniew Multani MD Medication Refill 0 Refill [facility] [place] [facility] [address] [place] [address] Ar Vaca MD Medication Refill 0 Telephone [facility] [place] [facility] [address] [place] [address] Alma Ornelas LPN Medication Refill 0 Refill [facility] [place] [facility] [address] [place] [address] Zbigniew Multani MD Medication Refill 0 Telephone [facility] [place] [facility] [address] [place] [address] Mckayla Roach MA Dizziness 0 Telephone [facility] [place] [facility] [address] [place] [address] Lora Domínguez RMA Medication Refill 0 Telephone [facility] [place] [facility] [address] [place] [address] Dennise Arboleda Results 0 Telephone [facility] [place] [facility] [address] [place] [address] Georgette Thompson Other 0 Telephone [facility] [place] [facility] [address] [facility] [place] [address] Amanda Contreras RMA Results 0 8:54 AM EST - 0 11:59 PM EST Hospital Encounter [facility] [address] [place] [address] Ar Vaca MD Syncope Discharge Disposition: Home or Self Care 0 8:54 AM EST - 0 11:59 PM EST Hospital Encounter [facility] MRI [address] [place] [address] Ar Vaca MD Syncope Discharge Disposition: Home or Self Care 0 8:54 AM EST - 0 11:59 PM EST Hospital Encounter [facility] Ultrasound [address] [place] [address] Ar Vaca MD Syncope Discharge Disposition: Home or Self Care 0 9:00 AM EDT - 0 11:59 PM EDT Hospital Encounter [facility] LAB VALERIO PROCESSING [facility] [place] [address] Ar Vaca MD Unspecified essential hypertension; Unspecified hypothyroidism Discharge Disposition: Home or Self Care 0 Telephone [facility] [place] [facility] [address] [place] [address] Mckayla Roach MA Other 0 8:50 AM EDT Clinical Support [facility] [place] [facility] [address] [facility] [place] [address] Scarlett Cee Unspecified essential hypertension; Unspecified hypothyroidism 0 Telephone [facility] [place] [facility] [address] [facility] [place] [address] Sandy Chen LPN Other 0 Telephone [facility] [place] [facility] [address] [facility] [place] [address] Georgette Thompson Other 0 2:00 PM EDT Office Visit [facility] [place] [address] [place] [place] [address] Ar Vaca MD Syncope (Primary Dx); Need for prophylactic vaccination and inoculation against influenza 0 Telephone [facility] [place] [facility] [address] [facility] [place] [address] MeaghantenDennise howard Medication Refill 0 [facility] [address] [facility] [place] [address] Sandy Chen LPN Medication Refill [address] [place] [address] Gabbie Morris MA Other 0 1:12 AM EDT - 0 6:55 PM EDT Hospital Encounter [facility] MIC[facility] [place] [address] Theo Vazquez MD Discharge Disposition: [facility] 0 6:44 PM EDT - 0 1:01 AM EDT Emergency [facility] [address] [place] [address] Gabby Capone MD Sower, David H, MD Suicidal ideation; Overdose; Depression; Poisoning by benzodiazepine-based tranquilizers Discharge Disposition: Admitted as an Inpatient 0 1:00 PM EDT [facility] [place] [address] Ar Vaca MD HTN (hypertension) (Primary Dx); Hypothyroid; DDD (degenerative disc disease), lumbar; WILLIE (generalized anxiety disorder); Migraine; Anxiety 0 Abstract [facility] [place] [facility] [address] [place] [address] Ar Vaca MD 0 Abstract [facility] [address] [place] [address] Ar Vaca MD Nervousness; Nausea with [...] EST Hospital Encounter [facility] EPIC CON UNK Ar Collins MD 9 12:50 PM EST - 9 11:59 PM EST Hospital Encounter [facility] EPIC CON UNK GRT Ar Vaca MD 9 8:03 AM EDT - 9 11:59 PM EDT Hospital Encounter [facility] EPIC CON UNK GRT Cathleen Das 9 5:28 PM EDT - 9 11:59 PM EDT Hospital Encounter [facility] EPIC CON UNK GRT Cathleen Das 9 12:42 PM EDT - 9 11:59 PM EDT Hospital Encounter [facility] EPIC CON UNK EDG Cathleen Das 9 12:01 AM EDT - 9 11:59 PM EDT Hospital Encounter [facility] EPIC CON UNK GRT Clemente Viral V, DO 9 12:01 AM EDT [...] EDT Hospital Encounter [facility] GC SPEC SVC Kristopher Ritchie MD 9 10:43 AM EDT - 9 4:10 PM EDT Hospital Encounter [facility] GC SPEC SVC Kristopher Ritchie MD 9 4:30 PM EDT - 9 11:59 PM EDT Hospital Encounter [facility]ST LAB GRT Clemente Viral V, DO 9 12:01 AM EDT - 9 11:59 PM EDT Hospital Encounter [facility] RADIOLOGY GRT Ar Vaca MD 9 3:45 PM EST - 9 11:59 PM EST Hospital Encounter HST RADIOLOGY GRT Clemente Viral V, DO 8 12:04 PM EDT [...] 7 11:05 AM EDT Hospital Encounter HST SAS Wander Vicente MD 7 12:46 PM EDT - 7 11:59 PM EDT Hospital Encounter HST LAB GRT Ar Vaca MD 7 9:35 AM EDT - 7 11:59 PM EDT Hospital Encounter HST GC SPEC SVC GRT Wander Vicente MD 7 4:26 PM EDT - 7 7:49 PM EDT Emergency HST EPIC CON UNK VERONICAG Chana Israel MD 7 7:51 AM EDT - 7 11:59 PM EDT Hospital Encounter HST RADIOLOGY GRT Ar Vaca MD 7 7:55 PM EDT - 7 11:59 PM EDT Hospital Encounter HST LAB EDG Jose Cornejo V, DO 7 3:47 PM EDT - [...] PM EST Emergency HST EPIC CON UNK TIRSOT Wander Beyer MD 7 3:55 PM EST [...] 10:52 AM EDT Hospital Encounter HST OSC Luana Varghese MD 5 12:01 AM EDT - [...] Encounter HST RADIOLOGY TIRSOT Ar Vaca MD 5 7:55 PM EDT [...] GC SPEC SVC GRT Dung Vela MD 4 10:41 AM EDT - 4 11:59 PM EDT Hospital Encounter HST LAB EDG Ar Vaca MD 4 11:17 AM EDT - 4 11:59 PM EDT Hospital Encounter HST RADIOLOGY GRT Ar Vaca MD 4 8:24 AM EDT - 4 11:59 PM EDT Hospital Encounter HST RADIOLOGY GRT Ar Vaca MD 4 9:32 AM EDT - 4 11:59 PM EDT Hospital Encounter HST RADIOLOGY TIRSOT Ar Vaca MD 4 12:01 AM EDT - 4 11:59 PM EDT Hospital Encounter HST RADIOLOGY TIRSOT Ar Vaca MD 4 5:46 PM EDT - 4 11:59 PM EDT Hospital Encounter HST RADIOLOGY GRT Ar Vaca MD 4 10:30 AM EDT - 4 11:59 PM EDT Hospital Encounter HST RADIOLOGY TIRSOT Ar Vaca MD 4 9:40 AM EDT - 4 11:59 PM EDT Hospital Encounter HST LAB TIRSOT Kristopher Crump MD 4 9:04 AM EST - 4 11:59 PM EST Hospital Encounter HST RADIOLOGY TIRSOT Cecilia Kemp MD 3 8:39 AM EST - 3 11:59 PM EST Hospital Encounter HST RADIOLOGY GRT Ar Vaca MD 3 10:43 AM EST - 3 11:59 PM EST Hospital Encounter HST LAB EDG Ar Vaca MD 3 12:33 PM EST - 3 2:15 PM EST Emergency HST EPIC CON UNK GRT Bartolome Gurpreet LeDO 3 5:55 PM EST - 3 11:59 PM EST Hospital Encounter HST LAB EDG Ar Vaca MD 3 12:05 PM EST - 3 11:59 PM EST Hospital Encounter HST GC SPEC SVC TIRSOT Kristopher Crump MD 3 1:58 PM EDT - 3 11:59 PM EDT Hospital Encounter HST LAB EDG rA Vaca MD 3 12:30 PM EDT - [...] GC SPEC SVC GRT Dung Vela MD 2 7:24 PM EDT - 2 11:59 PM EDT Hospital Encounter HST LAB EDG Ar Vaca MD 2 11:08 PM EDT - 2 11:55 PM EDT Emergency HST MAJOR ER EDG Richar Mendosa III, MD 2 9:29 AM EDT - 2 11:59 PM EDT Hospital Encounter HST GC SPEC SVC TIRSOT Kristopher Crump MD 2 9:55 PM EDT [...] PM EST Emergency HST EPIC CON UNK TIRSOT Richar Mendosa III, MD 1 11:16 PM [...] EDT Emergency HST EPIC CON UNK GRT Gurpreet Sam DO 1 11:52 AM EDT - 1 11:59 PM EDT Hospital Encounter HST GC SPEC SVC GRT Isaac Washington MD 1 Hospital Encounter HST UNKNFLO Generic, Historical Provider 1 2:24 PM EDT - 1 11:59 PM EDT Hospital Encounter HST PT GRT Ar Vaca MD 1 3:41 PM EST - 1 11:59 PM EST Hospital Encounter HST RADIOLOGY Ar Domínguez MD 1 Hospital Encounter HST UNKNFTT Generic, Historical Provider 0 10:36 AM EST - 0 11:59 PM EST Hospital Encounter HST GC SPEC SVC GRT Chana Hendrickson, DPM 0 9:57 AM EST - 0 11:59 PM EST Hospital Encounter HST RADIOLOGY GRT Ar Vaca MD 0 12:15 PM EST - 0 11:59 PM EST Hospital Encounter HST RADIOLOGY Ar Domínguez MD 0 5:37 AM EDT - 0 [...] SPEC SVC GRT Dung Vela MD 0 12:08 PM EDT - 0 11:59 PM EDT Hospital Encounter HST GC SPEC SVC GRT Dung Vela MD 0 12:21 PM EDT - 0 11:59 PM EDT Hospital Encounter HST RADIOLOGY GRT Zbigniew Multani MD 0 10:07 AM EDT - 0 11:59 PM EDT Hospital Encounter HST LAB GRT Zbigniew Multani MD 0 1:49 PM EST - 0 11:59 PM EST Hospital Encounter HST RADIOLOGY GRT Zbigniew Multani MD 0 7:49 AM EST [...] 11:59 PM EDT Hospital Encounter HST RADIOLOGY Ar Domínguez MD 9 1:15 PM EDT - 9 [...] PM EST Hospital Encounter HST RADIOLOGY GRT Megan Hawk MD 8 1:02 PM EDT - 8 11:59 PM EDT Hospital Encounter HST RADIOLOGY GRT Zbigniew Multani MD 8 6:09 PM EDT - 8 11:59 PM EDT Hospital Encounter HST EPIC CON UNK EDG [facility] 8 8:20 PM EST - 8 11:59 PM EST Hospital Encounter HST LAB EDG [facility] 7 3:27 PM EST - 7 11:59 PM EST Hospital Encounter HST HAND EDG Luana Varghese MD 7 1:38 PM EST Hospital Encounter HST SAS Luana Varghese MD 5 8:24 PM EDT - 5 11:59 PM EDT Hospital Encounter HST EPIC CON UNK COV [facility] 5 11:00 AM EDT - 5 11:59 PM EDT Emergency HST EPIC CON UNK EDG Gurpreet Sam DO 3 7:37 PM EST - 3 11:59 PM EST Hospital Encounter HST EPIC CON [facility] 2 6:39 PM EST - 2 11:59 PM EST Hospital Encounter HST EPIC CON [facility] 0 8:50 AM EST - 0 11:59 PM EST Hospital Encounter HST EPIC [facility] EDG Hilary Acosta MD 9 2:20 PM EDT - 9 11:59 PM EDT Emergency HST EPIC [facility] EDG Hilary Quinonez MD Allergies Active Allergy [...] Take 1 Tab by mouth daily. Active ketotifen (ZADITOR) 0.025 % (0.035 %) [...] for Pain. 200 mL 12/01/19 25 Active predniSONE (DELTASONE) 10 mg Oral TabletIndications [...] NAUSEA 100 Tablet 1 12/22/19 25 Active fluconazole (DIFLUCAN) 150 mg Oral TabletIndications :Acute vaginitis 1 today repeat every 3 days as needed 3 Tablet 12/22/19 25 Active semaglutide 0.25 mg or 0.5 mg (2 mg/3 mL) SubQ Pen Injector Inject 0.5 mg under the skin once a week for 122 days. 9 mL 12/30/19 25 025 Active meclizine (ANTIVERT) 25 mg Oral TabletIndications :Dizziness Take 1 Tablet by mouth 3 times daily as needed for Dizziness. 30 Tablet 5 01/26/20 25 Active semaglutide 0.25 mg or 0.5 mg (2 mg/3 mL) SubQ Pen InjectorIndicatio ns:Morbid obesity with body mass index of 40.0-49.9 (HCC) Inject 0.25 mg under the skin once a week for 28 days, THEN 0.5 mg once a week for 14 days. 3 mL 12/01/19 25 025 triamcinolone (KENALOG) 0.1 % Top CreamIndications: Rash Apply topically 2 times daily for 10 days. 80 g 12/07/19 25 025 Discontinued doxycycline hyclate (VIBRA-TABS) 100 mg Oral TabletIndications :Acute bacterial sinusitis Take 1 Tablet by mouth 2 times daily for 10 days. 20 Tablet 12/22/19 25 025 triamcinolone (KENALOG) 0.1 % Top CreamIndications: Rash APPLY TOPICALLY 2 TIMES DAILY FOR 10 DAYS. 80 g 01/03/20 25 025 Active Problems Patient Care Coordination No te Formatting of this note migh t be different from the original. 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 which along with chronic back pain limits ability to exercise Lupus (systemic lupus erythematosus) Resolved Problems Problem Noted Date Diagnosed Date Resolved Date Systemic lupus erythematosus 05/23/2024 05/23/2024 Type 2 diabetes mellitus wit h diabetic polyneuropathy 08/19/2023 08/19/2023 Overview (08/19/2023): Noted by [facility] [place] last documented on [id number] Viral infection 08/19/2023 08/23/2023 Leg pain 08/19/2023 08/23/2023 Chronic kidney disease, stage 3a 08/19/2023 08/23/2023 Overview (08/19/2023): Noted by GABO Jones APRN last documented on [id number] Claudication 01/10/2019 11/28/2021 Controlled type 2 diabetes chaitanya ludwig with stage 2 chronic kidney disease 09/21/2018 9 Overview (09/21/2018): Addressed in OV 18-19 Acute renal insufficiency 11/13/2013 Overview (11/13/2013): Pt [...] Vaccine Quad rivalant, Flublok 04/22/2020,06/12/2019 LAST MANUFACTURED 2011-Pneum ococcal Conjugate 7 Valent 07/19/2008 Pneumococcal Polysaccharide [...] Uncle Social History Smoking Status as of 01/29/2025 Tobacco Use Types Packs/Day Years Used Date Smoking Tobacco: Never Assessed Overall Financial Resource Strain (CARDIA) Answe r Date Recorded How hard is it for you to pa y for the very basics like food, housing, medical care, and heating? Not very hard 08/17/2024 PHQ-2 Answer Date Recorded PHQ-2 Total Score 0 11/02/2024 [facility] [place] of Occupat ional Health - Occupational Stress [...] stage 2 chronic kidney disease, unspecified whether retirement insulin use (HCC) COMPREHENSIVE METABOLIC PANEL Routine [...] in progress. Cardiology Consult Moises Ortega MD, [facility], [facility] Name: Karoline William : 1955 Chief Complaint: No chief complaint on file. HPI 57 Minimal Disease by cath 2008 Sudden CP/ SOB- atypical Was worried Came to ER- R/O for [place] Stress test Negative Hx of DM MICHAEL [...] tablet TAKE 1 TABLET EVERY DAY 09/28/13Yes Cornejo, Viral V, DO allopurinol (ZYLOPRIM) 100 mg tablet TAKE 1 TABLET TWICE DAILY 09/28/13Yes Cornejo, Viral V, DO omeprazole (PRILOSEC) 40 mg capsule Take 1 Cap by mouth daily. 09/28/13Yes Cornejo, Viral V, DO lisinopril-hydrochlorothiazide (PRINZIDE;ZESTORETIC) 20-25 mg per tabletTake 0.5 Tabs by mouth daily. 07/28/13 Yes Cornejo, Viral V, DO gabapentin (NEURONTIN) 100 mg capsule Take 2 Caps by mouth 3 times daily.05/19/13 Yes Cornejo, Viral V, DO topiramate (TOPAMAX) 25 mg tablet Take 1 Tab by mouth 2 times daily.05/12/13 Yes Cornejo, Viral V, DO meloxicam (MOBIC) 15 mg tablet Take 1 Tab by mouth daily. 05/12/13 YesPatel, Viral V, DO amitriptyline (ELAVIL) 50 mg tablet Take 1 Tab by mouth nightly. 05/12/13Yes Cornejo, Viral V, DO LACTOBACILLUS ACIDOPHILUS (PROBIOTIC ORAL) Take by mouth. Yes Provider,Historical Blood Sugar Diagnostic (ONE TOUCH TEST) Strp 1 box by [facility].(Non-Drug;Combo Route) route 2 times daily. One touch ultra 2 09/21/12 YesAr Vaca MD Lancets Misc 1 box by [facility].(Non-Drug; Combo Route) route 2 times daily.09/21/12 Yes [...] EVERY 12HOURS IF NEEDED FOR NAUSEA 08/02/13 Cornejo, Viral V, DO Miscellaneous Medical Supply Kit Hand rail for bath tub dx 780.2,729.1,715.96 04/26/13 Jose Cornejo V, DO omeprazole (PRILOSEC) 40 mg capsule [...] (MERREM) IVPB (Standard) 0.5 g Intravenous Q8H ON LICENSE OF [facility] Continuous Infusions: sodium chloride 100 mL/hr at [...] No arthralgias, or myalgias- No Back pain. BAKER: No new TIA/Stroke - No balance abnormalities-No [...] - Plan 1- Atypical CP R/o for [place] Stress test negative Will add low dose CCB for ? Spasm 2- Echo 6 months ago Trace MR/AI Conservative May be d/alejandro F/u with Dr Strickmeyer GLUCOSE METER POC Routine 11/14/2013 8:01 AM [...] 4:53 AM EDT HEPATIC FUNCTION PANEL Routine 04/28/201 4 4:53 AM EDT THYROID STIMULATING HORMONE [...] 6:11 PM EDT POCT URINALYSIS DIPSTICK STAT 2 011 4:43 PM EDT DIFFERENTIAL STAT 05/11/2011 [...] vomiting Weight loss POCT URINALYSIS DIPSTICK Routine 2 011 2:15 PM EDT Nausea with vomiting POCT URINALYSIS DIPSTICK Routine 2 011 2:39 PM EDT Abdominal pain, other specified site VITAMIN D, [id number] Routine 12/25 3:03 PM EDT Unspecified labyrinthitis [...] EDT IP CONSULT TO NUTRITION Routine 03/25/20 10 10:18 AM EDT SCANNED LABS 03/25/2010 12:00 AM EDT T4, FREE (THYROXINE) Routine 03/24/2010 12:52 PM EDT TSH REFLEX TO FT4 Routine 03/24/2010 12:52 PM EDT DRUG SCREEN URINE (FINAL) STAT 2009 8:55 PM EDT .DRUG SCREEN URINE (PRELIMINARY) STAT 03/23/2010 8:55 PM EDT DRUG SCREEN RAPID PANEL, URINE (GRT,COV ONLY) STAT 03/23/2010 8:55 PM EDT POCT URINALYSIS DIPSTICK Routine 010 8:52 PM EDT PARTIAL THROMBOPLASTIN TIME Routine [...] 10/02/2009 5:[address] ABD/PELVIS LABORATORY COORDINATOR Routine 04/18/2009 8:20 AM EDT GC XX FLAT AND UPRIGHT ABDOMEN Routine 04/15/2009 5:[address] ABD/PELVIS LABORATORY COORDINATOR Routine 02/06/2009 11:25 AM EDT CC CARDIAC PROCEDURE Routine 12/27/2008 7:[address] HEAD LABORATORY COORDINATOR Routine 10/30/2008 4:40 PM EDT GC MM DIG DIAG ADIS PANEL W/CAD Routine 10/17/2008 8:[address] PHARM STRESS Routine 10/15/2008 12:30 PM EDT GC EC ECHO COMPLETE PANEL Routine 2008 11:31 AM EDT GC NM NUCLEAR CARD PROC LABORATORY COORDINATOR Routine 09/17 10:[address] ABD/PELVIS LABORATORY COORDINATOR Routine 08/28/2008 7:00 PM EST GC MM DIG SCR ADIS PANEL W/CAD Routine 10/03/2007 1:00 PM EDT XX KNEE Routine 04/12/2007 1:[address] ABD/PELVIS LABORATORY COORDINATOR Routine 03/23/2007 2:00 PM EDT GC MM MAMMO DIAG BILATERAL Routine 03/23 8:[address] ABD/PELVIS LABORATORY COORDINATOR Routine 09/15/2006 9:15 AM EST FL STOMACH-SMALL BOWEL LABORATORY COORDINATOR Routine 09/08 8:05 AM EST XX FLAT AND UPRIGHT ABDOMEN Routine 07/21 4:10 PM EST MM MAMMO DIAG BILATERAL Routine 03/03/20 8:[address] CHEST LABORATORY COORDINATOR Routine 03/01/2006 12:48 PM EDT XX CHEST PORTABLE Routine 03/01/2006 11:30 AM EDT EK EKG REG Routine 03/01/2006 11:07 AM EDT EK EKG REG Routine 12/06/2005 8:47 AM EDT US LIVER-HEPATIC SONOGRAPHY Routine 10/2005 9:05 AM EDT FL BARIUM SWALLOW Routine 10/13/2005 9:57 AM EST FL SMALL BOWEL Routine 10/10/2005 8:[address] ABD/PELVIS LABORATORY COORDINATOR Routine 08/07/2005 10:00 AM EST XX ANKLE [...] 7:46 PM EDT [facility] [place] Percent 7.9 % 11/30/2024 7:46 PM EDT [facility] Eos Percent 0.1 % 11/30/2024 7:46 PM EDT [facility] Baso Percent 0.2 % 11/30/2024 7:46 PM EDT [facility] Neut # 8.2(H) 1.6 - 6.1 x10(3)/[facility] 11/30/2024 7:46 PM EDT [facility] Comment:Neutrophils equals s egs plus bands IMMGRAN# 0.1 0.0 - 0.1 x10(3)/mcL 11/30/2024 7:46 PM EDT [facility] Comment:Automated count of m etamyelocytes, myelocytes and promyelocytes. An absolute IG <0.1 is reported as 0.0. Lymph # 2.9 1.2 - 3.9 x10(3)/mcL 11/30/2024 7:46 PM EDT [facility] Charles Mix # 1.0(H) 0.3 - 0.9 x10(3)/mcL 11/30/2024 7:46 PM EDT [facility] Eos# 0.0 0.0 - 0.5 x10(3)/[facility] 11/30/2024 7:46 PM EDT [facility] Baso # 0.0 0.0 - 0.1 x10(3)/[facility] 11/30/2024 7:46 PM EDT [facility] Blood VENOUS BLOOD / Unknown Venipuncture / Unknown 11/30/2024 1:33 PM EDT 11/30/2024 1:33 PM EDT us Ar Vaca MD HEMATOLOGY ORDERABLES Fi nal Result [facility] [address] [facility] , [place] [address] * URIC ACID (11/30/2024 1:33 PM EDT) Only the most recent of7 resultswithin the time period is included. Uric Acid 2.7 2.4 - 5.7 mg/dL 11/30/2024 8:56 PM EDT [facility] Blood VENOUS BLOOD / Unknown Venipuncture / Unknown 11/30/2024 1:33 PM EDT 11/30/2024 1:33 PM EDT Ar Vaca MD CHEMISTRY ORDERABLES Fin al Result Performing Organization Address [facility] Phone Number [facility] [employer] [address] , [facility] [place] [address] * THYROID STIMULATING HORMONE (11/30/2024 1:33 PM EDT) Only the most recent of23 resultswithin the time period is included. TSH 4.020 0.270 - 4.200 mcIU/mL 11/30/2024 8:56 PM EDT [facility] [employer] Blood VENOUS BLOOD / Unknown Venipuncture / Unknown 11/30/2024 1:33 PM EDT 11/30/2024 1:33 PM EDT Narrative [facility] - 11/30/2024 8:56 PM EDT Ingestion of gerald doses of biotin (>5 mg/day) taken within 8 hours of drawing blood sample can interfere with this immunoassay test. Ar Vaca MD CHEMISTRY ORDERABLES Fin al Result Performing Organization Address [facility] Phone Number [facility] [employer] [address] , [place] [address] * (ABNORMAL) HEMOGLOBIN A1C (11/30/2024 1:33 PM EDT) Only the most recent of19 resultswithin the time period is included. Hgb A1C 5.8(H) 4.2 - 5.6 % 11/30/2024 8:08 PM EDT [facility] [employer] Est. Avg Glucose 120 mg/dL 11/30/2024 8:08 PM EDT [facility] Blood VENOUS BLOOD / Unknown Venipuncture / Unknown 11/30/2024 1:33 PM EDT 11/30/2024 1:33 PM EDT Narrative [facility] - 11/30/2024 8:08 PM EDT REFERENCE RANGE: [...] ORDERABLES Fin al Result [facility] [address] [facility] , [address] [place] [phone] * (ABNORMAL) COMPREHENSIVE METABOLIC PANEL (11/30/2024 1:33 [...] 11/30/2024 8:56 PM EDT [facility] Bili Total 0.3 0.2 - 1.3 mg/dL 11/30/2024 8:56 PM EDT [facility] ALT 10 <=41 U/L 11/30/2024 8:56 PM EDT [facility] AST 15 <=40 U/L 11/30/2024 8:56 PM EDT [facility] Alk Phos 81 36 - 123 U/L 11/30/2024 8:56 PM EDT [facility] eGFR (CKD-EPIcr 2020) 71 >=60 mL/min/1.7 3 m2 11/30/2024 8:56 PM EDT [facility] Comment:Estimated GFR was ca lculated using the CKD-EPIcr (2020) equation refit without race. The equation is recommended by the National Kid[employer] - [place] [employer] Nephrology Task Force. Blood VENOUS BLOOD / Unknown Venipuncture / Unknown 11/30/2024 1:33 PM EDT 11/30/2024 1:33 PM EDT Ar Vaca MD CHEMISTRY ORDERABLES Fin al Result [facility] [address] [facility] , [place] [address] * (ABNORMAL) SEP URINALYSIS POC (11/30/2024 1:05 [...] 1:05 PM EDT 11/30/2024 1:08 PM EDT us Ar Vaca MD POINT OF CARE TEST ORDER BUFFY Final Result Performing Organization Address City/[facility] Co de Phone Number [address] [address] * URINE CULTURE (NO STAIN) (11/30/2024 1:03 PM EDT) Only the most recent of7 resultswithin the time period is included. Culture Multiple bacterial species isolated from urine consistent with urogenital commensal organisms. 12/02/2024 7:23 AM EDT [facility] [employer] Urine STRUCTURE OF URINARY TRACT PROPER / Unknown 11/30/2024 1:03 PM EDT 11/30/2024 1:03 PM EDT us Ar Vaca MD MICROBIOLOGY - GENERAL O RDERABLES Final Result [facility] [address] [facility] , [place] [address] * (ABNORMAL) TSH REFLEX (08/15/2024 2:35 PM EST) Only the most recent of9 resultswithin the time period is included. TSH Reflex 5.890(H) 0.270 - 4.200 mcIU/mL 08/15/2024 11:32 PM EST [facility] [employer] Blood VENOUS BLOOD / Unknown Venipuncture / Unknown 08/15/2024 2:35 PM EST 08/15/2024 2:35 PM EST Narrative [facility] - 08/15/2024 11:32 PM EST Ingestion of gerald doses of biotin (>5 mg/day) taken within 8 hours of drawing blood sample can interfere with this immunoassay test. Ar Vaca MD CHEMISTRY ORDERABLES Fin al Result Performing Organization Address [facility] Phone Number [facility] [address] [place] [address] , [place] [phone] * T4, FREE (THYROXINE) (08/15/2024 2:35 PM EST) Only the most recent of21 resultswithin the time period is included. Free T4 1.36 0.80 - 1.80 ng/dL 08/16/2024 12:18 AM EST [facility] Blood VENOUS BLOOD / Unknown Venipuncture / Unknown 08/15/2024 2:35 PM EST 08/15/2024 2:35 PM EST Narrative [facility] - 08/16/2024 12:18 AM EST Ingestion of gerald doses of biotin (>5 mg/day) taken within 8 hours of drawing blood sample can interfere with this immunoassay test. Ar Vaca MD CHEMISTRY ORDERABLES Fin al Result Performing Organization Address [facility] de Phone Number [facility] [employer] [address] [place] [address] * (ABNORMAL) LIPID PANEL REFLEX (03/10/2024 1:45 PM EDT) Only the most recent of6 resultswithin the time period is included. Cholesterol 168 <200 mg/dL 03/10/2024 7:49 PM EDT [facility] [employer] [facility] Comment: < 200 Desirable 200 - 239 Borderline High >= 240 High Triglyceride 178(H) <150 mg/dL 03/10/2024 7:49 PM EDT [facility] [employer] [facility] Comment: < 150 Normal 150 - 199 Borderline High 200 - 499 High >= 500 Very High HDL 40 >=40 mg/dL 03/10/2024 7:49 PM EDT [facility] [employer] Comment: > 60 Optimal 40 - 60 Acceptable < 40 Low LDL Calculated 97 <100 mg/dL 03/10/2024 7:49 PM EDT [facility] [employer] [facility] Non-HDL-C Calculated 128 <=129 mg/dL 03/10/2024 7:49 PM EDT [facility] Comment: <130 Desirable 130-159 Above Desirable 160-189 Borderline High 190-219 High >= 220 Very High Fasting Specimen? No None 024 7:49 PM EDT [facility] Blood VENOUS BLOOD / Unknown Venipuncture / Unknown 03/10/2024 1:45 PM EDT 03/10/2024 1:45 PM EDT Ar Vaca MD CHEMISTRY ORDERABLES Fin al Result [facility] [employer] [facility] [address] [facility] [address] [facility] [address] [place] [address] * SEDIMENTATION RATE AUTOMATED (03/10/2024 1:45 PM EDT) Only the most recent of3 resultswithin the time period is included. Sed Rate 11 0 - 30 mm/hr 03/10/2024 8:11 PM EDT [facility] [employer] [facility] Blood VENOUS BLOOD / Unknown Venipuncture / Unknown 03/10/2024 1:45 PM EDT 03/10/2024 1:45 PM EDT Ar Vaca MD HEMATOLOGY ORDERABLES Fi nal Result Performing Organization Address [facility] Co de Phone Number [facility] [employer] [facility] [address] [facility] [place] [address] * RHEUMATOID FACTOR QUANTITATIVE (03/10/2024 1:45 PM EDT) Only the most recent of2 resultswithin the time period is included. Pathologist [facility] RF Quant <10 <14 IU/mL 03/10/2024 7:3 6 PM EDT [facility] [employer] [facility] Blood VENOUS BLOOD / Unknown Venipuncture / Unknown 03/10/2024 1:45 PM EDT 03/10/2024 1:45 PM EDT Ar Vaca MD IMMUNOLOGY ORDERABLES Fi nal Result Performing Organization Address [facility] de Phone Number [facility] [address] [facility] [place] [address] * ANTINUCLEAR ANTIBODY SCREEN (03/10/2024 1:45 PM EDT) Only the most recent of3 resultswithin the time period is included. Pathologist [facility] SHANTI, IgG Negative Negative 03/12/2024 10:26 AM EDT [facility] [employer] [facility] Comment:SHANTI samples are scre ened using automated enzyme immunoassay. All samples that screen positive are then tested by the indirect immunofluorescence method. Blood VENOUS BLOOD / Unknown Venipuncture / Unknown 03/10/2024 1:45 PM EDT 03/10/2024 1:45 PM EDT Ar Vaca MD IMMUNOLOGY ORDERABLES Fi nal Result Performing Organization Address [facility] Co de Phone Number [facility] [address] [facility] [place] [address] * URINALYSIS (10/08/2023 12:48 PM EDT) Only the most recent of4 resultswithin the time period is included. Pathologist [facility] UA Color Light Yellow 10/08/2023 6:49 PM EDT [facility] [employer] [facility] UA Appear Clear Clear 10/08/2023 6:49 PM EDT [facility] UA Glucose Negative Negative mg/dL 10/08/2023 6:49 PM EDT [facility] UA Ketones Negative Negative mg/dL 10/08/2023 6:49 PM EDT [facility] UA Blood Negative Negative 10/08/2023 6:49 PM EDT [facility] UA pH 6.5 5.0 - 8.0 pH 10/08/2023 6:49 PM EDT [facility]A Protein Negative Negative mg/dL 10/08/2023 6:49 PM EDT [facility] UA Urobilinogen Normal <=1 mg/dL 6:49 PM EDT [facility] UA Bili Negative Negative 10/08/2023 6:49 PM EDT [facility] UA Nitrite Negative Negative 10/08/2023 6:49 PM EDT [facility] UA Leuk Est Negative Negative 10/08/2023 6:49 PM EDT [facility] UA Spec Grav 1.009 1.001 - 1.035 no units 10/08/2023 6:49 PM EDT [facility] Comment:Reference range nancy d for random specimens only. Urine URINE SPECIMEN COLLECTION, CLEAN CATCH / Unknown 10/08/2023 12:48 PM EDT 10/08/2023 12:48 PM EDT us Ar Vaca MD URINE ORDERABLES Final R esult [facility] [address] [facility] , [place] [address] * XR CERVICAL SPINE AP LATERAL ODONTOID [...] HISTORY: M50.30-Other cervical disc degeneration, unspecified cervical tyvfdk-SMD-33-CM COMPARISON: None. PROCEDURE COMMENTS: Minimum of 5 views of the cervical spine, including PA, lateral, odontoid, and bilateral oblique positioning. FINDINGS: No fracture or evidence of traumatic malalignment. Soft tissues unremarkable. Large anterior osteophyte C5-C6. Milder discogenic changes C6-C7. Bony foramina appear overall patent. Procedure Note Chan Hill MD - 09/07/2023 C-SPINE SERIES, 09/07/2023 4:54 PM CLINICAL HISTORY: M50.30-Other cervical disc degeneration, unspecifiedcervical wymuqn-CGH-49-CM COMPARISON: None. PROCEDURE COMMENTS: Minimum of 5 [...] Vaca MD POINT OF CARE TEST ORDER BUFYF Final Result Performing Organization Address City/[facility] Co de Phone Number [address] [place] [address] * POCT SARS-COV-2 RNA SEP (10/04/2022 12:57 PM EDT) COV19 RNA POCT Negative Negative 10/04/2022 1:07 PM EDT [facility] Swab NASAL / Unknown 10/04/2022 1 2:57 PM EDT 10/04/2022 1:07 PM EDT Narrative [facility] - 10/04/2022 1:07 PM EDT The ID NOW is an isothermal nucleic acid amplification assay used to detect nucleic acid from SARS-CoV-2 viral RNA and is intended for use under FDA Emergency Use Authorization only. Negative results do [...] management. [facility] NOW Provider Fact Sheet: https://www.fda.gov/media/803718/download [facility] Patient Fact Sheet: https://www.fda.gov/media/439732/download us Gabbie Simms MD POINT OF CARE TEST ORDERAB LES Final Result [facility] [address] [place] [address] * (ABNORMAL) LIPID SCREEN (08/28/2022 10:02 AM EST) Only the most recent of10 resultswithin the time period is included. Cholesterol 187 <200 mg/dL 08/28/2022 4:33 PM EST [facility] Comment: < 200 Desirable 200 - 239 Borderline High >= 240 High Triglyceride 187(H) <150 mg/dL 08/28/2022 4:33 PM EST [facility] Comment: < 150 Normal 150 - 199 Borderline High 200 - 499 High >= 500 Very High HDL 40 >=40 mg/dL 08/28/2022 4:33 PM EST [facility] Comment: > 60 Optimal 40 - 60 Acceptable < 40 Low LDL Calculated 114(H) <100 mg/dL 08/28/2022 4:33 PM EST [facility] Comment: < 100 Optimal 100 - 129 Near or above optimal 130 - 159 Borderline High 160 - 189 High >= 190 Very High Non-HDL-C Calculated 147(H) <=129 mg/dL 08/28/2022 4:33 PM EST [facility] Comment: <130 Desirable 130-159 Above Desirable 160-189 Borderline High 190-219 High >= 220 Very High Fasting Specimen? Yes None 023 4:33 PM EST [facility] Blood VENOUS BLOOD / Unknown Venipuncture / Unknown 08/28/2022 10:02 AM EST 08/28/2022 10:02 AM EST us Ar Vaca MD CHEMISTRY ORDERABLES Fin al Result [facility] [address] [facility], [place] [address] [facility] 1 [place] [address] * (ABNORMAL) CORONAVIRUS 2019 (COVID-19) - REF LAB (08/23/2021 2:22 PM EST) Only the most recent of2 resultswithin the time period is included. [facility] CORONAVIRUS [id number] DETECTED( A) NOT DETECTED 08/24/2021 5:53 PM EST [facility] Swab NASAL / Unknown 08/23/2021 2 :22 PM EST 08/23/2021 2:22 PM EST Narrative [facility] - 08/24/2021 5:53 PM EST Testing Performed at [facility] [address] [place] [address], [address] StreetIA#: [id number] Soldering Machine Operator Automatic: Hilary Moon, Ph.D., [facility]. Detected results are indicative [...] LAB SEND OUT ORDERAB LES Final Result [facility] [address] [place] [address], [facility] [phone] * MRI CERVICAL SPINE WO CONTRAST (07/31/2021 [...] 8:42 AM CLINICAL HISTORY: R59.0-Localized enlarged lymph xdovi-LOZ-95-CM. COMPARISON: CT July 11, 2021. PROCEDURE COMMENTS: [...] Comment:No significant additional finding. Procedure Note Corey Luna MD - 07/31/2021 MR CERVICAL SPINE WITHOUT CONTRAST, 07/31/2021 8:42 AM CLINICAL HISTORY: R59.0-Localized enlarged lymph dsqbw-DKK-53-CM. COMPARISON: CT July 11, 2021. PROCEDURE COMMENTS: [...] 11:07 AM CLINICAL HISTORY: R59.0-Localized enlarged lymph ogdql-TQO-47-CM. COMPARISON: None. PROCEDURE COMMENTS: Multidetector volumetric CT [...] 11:07 AM CLINICAL HISTORY: R59.0-Localized enlarged lymph wufdr-JOO-12-CM. COMPARISON: None. PROCEDURE COMMENTS: Multidetector volumetric CT [...] 11:21 AM CLINICAL HISTORY: R59.0-Localized enlarged lymph pyjco-ELS-18-CM. COMPARISON: None. PROCEDURE COMMENTS: Routine sonographic evaluation of the region of interest with commercial representative images sent to PACS along with bead wire insulator notes. FINDINGS: Patient complains of pain and [...] 11:21 AM CLINICAL HISTORY: R59.0-Localized enlarged lymph phopu-KQG-80-CM. COMPARISON: None. PROCEDURE COMMENTS: Routine sonographic evaluation of the region ofinterest with commercial representative images sent to PACS along with bead wire insulator notes. FINDINGS: Patient complains of pain and [...] HISTORY: M21.949-Unspecified acquired deformity of hand, unspecified zbnv-VXO-62-CM M19.041-Primary osteoarthritis, right wufl-TGV-63-CM M19.042-Primary osteoarthritis, left owbz-AGE-24-CM COMPARISON: None. PROCEDURE COMMENTS: Bilateral imaging per [...] CLINICAL HISTORY: M21.949-Unspecified acquired deformity of hand,unspecified ully-IYI-31-CM M19.041-Primary osteoarthritis, right ryur-DSQ-21-CM M19.042-Primary osteoarthritis, left npqo-KAM-52-CM COMPARISON: None. PROCEDURE COMMENTS: Bilateral imaging per [...] please contactthe office of the ordering clinician. Lacho Ennis MD [facility] ORDER BUFFY Final Result * CYCLIC CITRULLINATED PEPTIDE ANTIBODY, IGG (10/28/2020 1:43 PM EDT) C[facility] Ab, IgG <0.5 U/mL 10/28/2020 8:46 PM EDT [facility] Comment: Negative: < 5.0 U/mL Positive: > or = 5.0 U/mL Blood VENOUS BLOOD / Unknown Venipuncture / Unknown 10/28/2020 1:43 PM EDT 10/28/2020 1:43 PM EDT us Lacho Ennis MD IMMUNOLOGY ORDERABLES Final Result Performing Organization Address [facility] Phone Number [facility] [address] , [place] [address] * VITAMIN D 25 HYDROXY (10/28/2020 1:43 PM EDT) Only the most recent of3 resultswithin the time period is included. Pathologist [facility] Vit D 25 OH 49.1 30.0 - 150.0 ng/mL 10/28/2020 8:15 PM EDT [facility] [employer] Comment: Preferred: >= 30 ng/mL Insufficient: 21-29 [...] ORDERABLES Final R esult Performing Organization Address [facility] de Phone Number [facility] [employer] [address] , [place] [address] * (ABNORMAL) C-REACTIVE PROTEIN (10/28/2020 1:43 PM EDT) [facility] CRP 8.12(H) <=5.00 mg/L 10/28/2020 7:58 PM EDT [facility] Blood VENOUS BLOOD / Unknown Venipuncture / Unknown 10/28/2020 1:43 PM EDT 10/28/2020 1:43 PM EDT us Lacho Ennis MD CHEMISTRY ORDERABLES Final R esult [facility] [address] [facility] , [place] [address] * (ABNORMAL) RENAL FUNCTION PANEL (10/28/2020 1:43 PM EDT) Sodium 140 136 - 145 mmol/L 10/28/2020 8:00 PM EDT [facility] Potassium 4.5 3.5 - 5.0 mmol/L 10/28/2020 8:00 PM EDT [facility] Chloride 102 98 - 107 mmol/L 10/28/2020 8:00 PM EDT [facility] Total CO2 28 22 - 29 mmol/L 10/28/2020 8:00 PM EDT [facility] Anion Gap 10 7 - 16 mmol/L 10/28/2020 8:00 PM EDT [facility] Calcium 9.7 8.8 - 10.4 mg/dL 10/28/2020 8:00 PM EDT [facility] Glucose Lvl 94 82 - 100 mg/dL 10/28/2020 8:00 PM EDT [facility] BUN 15 8 - 23 mg/dL 10/28/2020 8:00 PM EDT [facility] Creatinine 1.03 0.51 - 1.30 mg/dL 10/28/2020 8:00 PM EDT [facility] Albumin 4.1 3.2 - 4.6 gm/dL 10/28/2020 8:00 PM EDT [facility] Phosphorus 3.4 2.5 - 4.5 mg/dL 10/28/2020 8:00 PM EDT [facility] GFR Afr Am 66 >=60 mL/min/1.7 3 m2 10/28/2020 8:00 PM EDT [facility] GFR Non Afr Am 58(L) >=60 mL/min/1.7 3 m2 10/28/2020 8:00 PM EDT [facility] Comment: This estimated GFR was calculated [...] MD CHEMISTRY ORDERABLES Final Res ult [facility] [address] [facility], [address] [place] [id number] [facility] [address] [place] [address] * CT ABD PEL ED FAST W [...] - 10.3 x10(3)/mcL 10/01/2020 2:34 AM EDT [facility] RBC 4.37 3.90 - 5.20 x10(6)/mcL 10/01/2020 2:34 AM EDT [facility] Hgb 11.9 11.2 - 15.7 g/dL 10/01/2020 2:34 AM EDT [facility] Hct 37.3 34.0 - 45.0 % 10/01/2020 2:34 AM EDT [facility] MCV 85.4 80.0 - 100.0 fL 10/01/2020 2:34 AM EDT [facility] MCH 27.2 26.0 - 34.0 pg 10/01/2020 2:34 AM EDT [facility] MCHC 31.9 30.7 - 35.5 g/dL 10/01/2020 2:34 AM EDT [facility] RDW 15.3(H) <=14.9 % 10/01/2020 2:34 AM EDT [facility] Platelet 260 155 - 369 x10(3)/mcL 10/01/2020 2:34 AM EDT [facility] MPV 11.3 8.8 - 12.5 fL 10/01/2020 2:34 AM EDT [facility] Blood VENOUS BLOOD / Unknown Venipuncture / Unknown 10/01/2020 2:27 AM EDT 10/01/2020 2:30 AM EDT Henry Valiente MD HEMATOLOGY ORDERABLES F inal Result [facility] [address] [place] [address] * (ABNORMAL) BASIC METABOLIC PANEL (10/01/2020 2:27 AM EDT) Only the most recent of21 resultswithin the time period is included. Sodium 137 136 - 145 mmol/L 10/01/2020 2:56 AM EDT [facility] Potassium 4.3 3.5 - 5.0 mmol/L 10/01/2020 2:56 AM EDT [facility] Chloride 102 98 - 107 mmol/L 10/01/2020 2:56 AM EDT [facility] Total CO2 27 22 - 29 mmol/L 10/01/2020 2:56 AM EDT [facility] Anion Gap 8 7 - 16 mmol/L 10/01/2020 2:56 AM EDT [facility] Calcium 10.0 8.8 - 10.4 mg/dL 10/01/2020 2:56 AM EDT [facility] Glucose Lvl 122(H) 82 - 100 mg/dL 10/01/2020 2:56 AM EDT [facility] BUN 13 8 - 23 mg/dL 10/01/2020 2:56 AM EDT [facility] Creatinine 0.86 0.51 - 1.30 mg/dL 10/01/2020 2:56 AM EDT [facility] GFR Afr Am 83 >=60 mL/min/1.7 3 m2 10/01/2020 2:56 AM EDT [facility] GFR Non Afr Am 72 >=60 mL/min/1.7 3 m2 10/01/2020 2:56 AM EDT [facility] Comment: This estimated GFR was [...] ORDERABLES Fi nal Result Performing Organization Address [facility] de Phone Number [facility] [address] [place] [address] * EXTRA ARAGON URINE CX (10/01/2020 1:58 AM EDT) Only the most recent of2 resultswithin the time period is included. Urine URINE SPECIMEN COLLECTION, CLEAN CATCH / Unknown 10/01/2020 1:58 AM EDT 10/01/2020 2:01 AM EDT Henry Valiente MD MICROBIOLOGY - GENERAL ORDERABLES Final Result Performing Organization Address [facility] de Phone Number [facility] [address] [place] [address] * POCT URINALYSIS DIPSTICK (09/18/2020 11:15 AM EST) Only the most recent of7 resultswithin the time period is included. Color, UA yellow CLEAR,YELL OW,ORANGE, RUST [facility] Clarity, UA clear CLEAR,CLOU DY [facility] Glucose, UA negative G/DL% [facility] Bilirubin, UA negative POS/NEG [facility] Ketones, UA negative POS/NEG [facility] concrete sculptor Grav, UA 1.015 1.001 - 1.035 G/DL [facility] Blood, UA negative POS/NEG [facility] pH, UA 6.0 5.0 - 8 [facility] Protein, UA negative POS/NEG [facility] Urobilinogen, UA negative 0.2 - 1.0 MG/DL [facility] Nitrite, UA negative POS/NEG [facility] Leukocytes, UA negative POS/NEG [facility] UA Appear POC [facility] Lot Number [facility] Expiration Date [facility] SeriAl # [facility] Urine 09/18/2020 11:1 5 AM EST us Kory Rodriguez MD POINT OF CARE TEST ORDERABLES Final Result [facility] * CT CHEST WO CONTRAST (09/13/2020 3:15 PM EST) Anatomical Region Laterality Modality Chest Computed Tomogra phy 09/13/2020 3:15 PM EST Impressions 09/13/2020 4:33 PM EST Osteoarthritis right sternoclavicular joint. - Narrative 09/13/2020 4:[address] CHEST WITHOUT CONTRAST, 09/13/2020 3:15 PM CLINICAL HISTORY: R07.89-Other chest pkup-IPA-51-CM. Sternal and clavicular pain COMPARISON: Chest radiograph [...] 09/13/2020 3:15 PM CLINICAL HISTORY: R07.89-Other chest gkkf-RMG-38-CM. Sternal andclavicular pain COMPARISON: Chest radiograph 08/26/2020 [...] valve. IMPRESSION: Osteoarthritis right sternoclavicular joint. - Stevie Piña MD IMG CT ORDERABLES Final Result * XR CLAVICLE RIGHT (08/26/2020 10:16 AM EST) Anatomical Region Laterality Modality Shoulder Radiographic Sharee ging 08/26/2020 10:1 6 AM EST Impressions 08/26/2020 1:07 PM EST No acute fracture deformity. Moderate degenerative change, AC joint. - Narrative 08/26/2020 1:07 PM EST XR CLAVICLE RIGHT, 08/26/2020 10:16 AM CLINICAL HISTORY: M89.3F3-Pmiqq specified disorders of bone, mwiutuae-TXW-58-CM. Recurrent pain/swelling. No history of acute trauma. [...] CLAVICLE RIGHT, 08/26/2020 10:16 AM CLINICAL HISTORY: M89.1Q6-Shbnv specified disorders of bone, rnqqpumw-CJW-28-CM. Recurrent pain/swelling. No history of acute trauma. [...] degenerative change, AC joint. - us Viral Clemente Bass DO IMG DIAGNOSTIC IMAGING ORDERAB LES Final [...] 08/26/2020 10:16 AM CLINICAL HISTORY: J01.80-Other acute mujrxcenv-PDF-13-CM J20.9-Acute bronchitis, zeprjprunih-WWE-38-CM U07.0-QPSWB-31-ICD-10-CM COMPARISON: 04/01/2016. The lungs are clear. Heart size is normal. Procedure Note Chana Bright MD - 08/26/2020 PA AND LATERAL CHEST X-RAY, 08/26/2020 10:16 AM CLINICAL HISTORY: J01.80-Other acute srcwowpex-FDW-88-CM J20.9-Acute bronchitis, bkiznbtabmu-IUK-60-CM U07.0-SBBHA-14-ICD-10-CM COMPARISON: 04/01/2016. The lungs are clear. Heart [...] CLINICAL HISTORY: N28.9-Disorder of kidney and ureter, epeeaarkwcl-ZEN-43-CM. COMPARISON: None. PROCEDURE COMMENTS: Routine sonographic evaluation of the kidneys and bladder with commercial representative images and bead wire insulator notes sent to PACS for radiologist review. [...] PM CLINICAL HISTORY: N28.9-Disorder of kidney and ureter,mnrxsawektw-QZK-15-CM. COMPARISON: None. PROCEDURE COMMENTS: Routine sonographic evaluation of the kidneys andbladder with commercial representative images and bead wire insulator notes sent to PACS forradiologist review. FINDINGS: [...] CLINICAL HISTORY: M19.071-Primary osteoarthritis, right ankle and fsxu-NHW-02-CM M19.072-Primary osteoarthritis, left ankle and tier-QVZ-59-CM COMPARISON: None. PROCEDURE COMMENTS: 3 views each [...] CLINICAL HISTORY: M19.071-Primary osteoarthritis, right ankle and yuto-IMO-41-CM M19.072-Primary osteoarthritis, left ankle and giqt-UZK-84-CM COMPARISON: None. PROCEDURE COMMENTS: 3 views each [...] with bilateral heel spursnoted. Iftikhar Lang DPM IM DIAGNOSTIC IMAGING ORD ERABLES Final Result * [...] HISTORY: M77.51-Other enthesopathy of right foot and ktino-KZG-21-CM COMPARISON: 10/15/2013 PROCEDURE COMMENTS: Routine views per the ordered protocol. FINDINGS: Mild degenerative changes around ankle joint. Plantar spurring. Minimal midfoot degenerative change. No acute fracture or dislocation Procedure Note Chan Hill MD - 02/01/2020 XR ANKLE RIGHT AP LATERAL AND OBLIQUE, 02/01/2020 5:22 PM CLINICAL HISTORY: M77.51-Other enthesopathy of right foot ovfoumvx-DQV-81-CM COMPARISON: 10/15/2013 PROCEDURE COMMENTS: Routine views per the ordered protocol. FINDINGS: Mild degenerative changes around ankle joint. Plantarspurring. Minimal midfoot degenerative change. No acute fracture or dislocation IMPRESSION: No acute osseous abnormality of the ankle. - Iftikhar Lang DPM IMG DIAGNOSTIC IMAGING ORD [...] IU/L 08/02/2019 8:09 PM EST [facility] ALT 12 <=41 IU/L 08/02/2019 8:09 PM EST [facility] Alk Phos 86 36 - 123 IU/L 08/02/2019 8:09 PM EST [facility] Blood VENOUS BLOOD / Unknown Venipuncture / Unknown 08/02/2019 3:51 PM EST 08/02/2019 3:51 PM EST us Viral Cornejo V, DO CHEMISTRY ORDERABLES Final Res ult [facility] [address] [facility] , [place] [address] * MRI LUMBAR SPINE WO CONTRAST (04/17/2019 [...] 04/17/2019 6:15 PM CLINICAL HISTORY: M54.5-Low back blly-CPT-70-CM M51.36-Other intervertebral disc degeneration, lumbar jacxwq-RXV-32-CM COMPARISON: None. PROCEDURE COMMENTS: Multiplanar multiecho MR [...] 04/17/2019 6:15 PM CLINICAL HISTORY: M54.5-Low back hrxq-EKW-09-CM M51.36-Other intervertebral disc degeneration, lumbar onjcyb-GQJ-26-CM COMPARISON: None. PROCEDURE COMMENTS: Multiplanar multiecho MR [...] 192 IU/L 09/22/2018 7:19 PM EST [facility] Blood VENOUS BLOOD / Unknown Venipuncture / Unknown 09/22/2018 2:12 PM EST 09/22/2018 2:12 PM EST us Ramonita Hernadez APRN CHEMISTRY ORDERABLES Final Res ult [facility] [address] [facility] , [place] [address] * [facility] LOWER EXTREMITY ARTERIAL PHYSIOLOGICAL (09/01/2018 1:10 PM [...] Surjit Hare DO Narrative Procedure Note Surjit Hare DO - 09/01/2018 IMPRESSION CONCLUSIONS Right lower extremity: [...] EDT Impressions 04/06/2018 2:45 PM EDT Negative (FWV-Bdvcxesn-4) ~ RECOMMENDATION: Routine screening mammogram in 1 [...] and inconclusive findings on diagnostic imaging of cubsom-UGG-70-CM R92.1-Mammographic calcification found on diagnostic imaging of hbyubo-PMG-03-CM 62-year-old female with calcifications noted within the right breast in 2014. The patient was requested to return for short-term follow-up. Patient returns today. R92.8-Other abnormal and inconclusive findings on diagnostic imaging of cztshn-XBG-54-CM R92.1-Mammographic calcification found on diagnostic imaging of jptohi-VRJ-98-CM 62-year-old female with calcifications noted within the [...] and inconclusive findings on diagnostic imaging of clumge-UDP-46-CM R92.1-Mammographic calcification found on diagnostic imaging of dyzlys-HAF-48-CM 62-year-old female with calcifications noted within the right breast in 2014. The patient was requested to return for short-term follow-up. Patient returns today. R92.8-Other abnormal and inconclusive findings on diagnostic imaging of jvypdi-CJY-72-CM R92.1-Mammographic calcification found on diagnostic imaging of pxsiyt-QSF-67-CM 62-year-old female with calcifications noted within the [...] mammographic evidence of malignancy. ~ IMPRESSION: Negative (PEW-Mttsximb-6) ~ RECOMMENDATION: Routine screening mammogram in 1 [...] Positive Growth(A) 11/26/2017 9:14 AM EDT [facility] Culture Moderate growth of Serratia marcescens SUSCEPTIB ILITY RESULT 11/26/2017 9:14 AM EDT [facility] Culture Sparse growth of Staphylococcus epidermidis SUSCEPTIB ILITY RESULT 11/26/2017 9:14 AM EDT [facility] Comment:No further workup. Culture Sparse growth of Streptococcus intermedius SUSCEPTIB ILITY RESULT 11/26/2017 9:14 AM EDT [facility] Comment:No further workup. Stain No organisms seen 018 9:14 AM EDT [facility] Stain Rare WBCs 11/26/2017 9:14 AM EDT [facility] Swab MAXILLARY SINUS STRUCTURE / Unknown [...] ORDERAB LES Final Result Performing Organization Address City/[facility]/[place] [address] * ANAEROBIC CULTURE (NO STAIN) (11/22/2017 1:00 PM EDT) Only the most recent of5 resultswithin the time period is included. Culture No anaerobic growth at 5 days. 11/28/2017 12:26 PM EDT [facility] Swab MAXILLARY SINUS STRUCTURE / Unknown 11/22/2017 1:00 PM EDT 11/22/2017 6:36 PM EDT Carrillo Manriquez MD MICROBIOLOGY - GENERAL ORDERAB LES Final Result Performing Organization Address [facility] [place] [address] * XR ABDOMEN SUPINE ERECT AND DECUBITUS (11/17/2017 5:04 PM EDT) Anatomical Region Laterality Modality Abdomen Radiographic Sharee ging 11/17/2017 5:04 PM EDT Impressions 11/17/2017 5:08 PM EDT Moderate stool Narrative 11/17/2017 5:08 PM EDT XR ABDOMEN SUPINE ERECT AND DECUBITUS 11/17/2017 5:04 PM CLINICAL HISTORY: K59.09-Other ahuqfugrmsip-DIL-22-CM COMPARISON: None. PROCEDURE COMMENTS: 3 views per protocol. FINDINGS: No free air or obstruction. Moderate stool involving the colon. Prior cholecystectomy. Numerous phleboliths in the pelvis. Procedure Note Chan Hill MD - 11/17/2017 XR ABDOMEN SUPINE ERECT AND DECUBITUS 11/17/2017 5:04 PM CLINICAL HISTORY: K59.09-Other vkygibrabzbl-SKF-92-CM COMPARISON: None. PROCEDURE COMMENTS: 3 views per protocol. FINDINGS: No free air or obstruction. Moderate stool involving the colon. Prior cholecystectomy. Numerous phleboliths in the pelvis. IMPRESSION: Moderate stool Rajesh Gutierrez MD PHD IMG DIAGNOSTIC IMAGING DONG LANTIGUA Final Result * CT SINUS LAND GURPREET WO CONTRAST (11/16/2017 12:46 PM EDT) Anatomical Region Laterality Modality Head Computed Tomogra phy 11/16/2017 12:4 6 PM EDT Impressions 11/16/2017 1:13 PM EDT Prior sinonasal surgery with moderate right maxillary sinus mucosal thickening as detailed above. Narrative 11/16/2017 1:[address] SINUS LAND GURPREET WO CONTRAST 11/16/2017 12:46 PM CLINICAL HISTORY: J32.9-Chronic sinusitis, jkdjhwqshun-TUS-58-CM COMPARISON: Limited sinus CT from 07/01/2011. PROCEDURE [...] 11/16/2017 12:46 PM CLINICAL HISTORY: J32.9-Chronic sinusitis, ulzlnmqxesu-YGF-43-CM COMPARISON: Limited sinus CT from 07/01/2011. PROCEDURE [...] of5 resultswithin the time period is included. Lipase Lvl 11(L) 13 - 60 IU/L 11/11/2017 9:36 PM EDT [facility] Blood VENOUS BLOOD / Unknown Venipuncture / Unknown 11/11/2017 9:06 PM EDT 11/11/2017 9:10 PM EDT Kristopher Richard MD CHEMISTRY ORDERABLES Final Resu lt [facility] [address] [place] [address] * MISCELLANEOUS LAB (10/26/2017 1:58 PM EDT) [facility] MISC COMMENT See Scanned Image 10/28/2017 7:00 PM EDT [facility] Blood BLOOD SPECIMEN / Unknown Venipuncture / Unknown 10/26/2017 1:58 PM EDT 10/26/2017 1:58 PM EDT Rajesh Gutierrez MD PHD HEMATOLOGY ORDERABLES Final Result EXTERNAL LAB [facility] [address] [place] [address] * PLATELET COUNT (10/26/2017 1:57 PM EDT) [facility] Platelet 278 144 - 423 x10(3)/mcL 10/26/2017 2:02 PM EDT [facility] MPV 9.5 6.8 - 10.8 fL 10/26/2017 2:02 PM EDT [facility] Blood VENOUS BLOOD / Unknown Venipuncture / Unknown 10/26/2017 1:57 PM EDT 10/26/2017 1:58 PM EDT Rajesh Gutierrez MD PHD HEMATOLOGY ORDERABLES Final Result [facility] [address] [place] [address] * CT ABDOMEN PELVIS WO ORAL OR IV CONTRAST (10/15/2017 2:12 PM EDT) Anatomical Region Laterality Modality Abdomen, Pelvis Computed Tomogra phy 10/15/2017 2:12 PM EDT Impressions 10/15/2017 2:[address] abdomen and pelvis. No acute finding. Narrative 10/15/2017 2:[address] ABDOMEN PELVIS WO ORAL OR IV CONTRAST 10/15/2017 2:12 PM HISTORY: R10.33-Periumbilical frjl-ZZK-88-CM R14.0-Abdominal distension (gaseous)-ICD-10-CM Neither intravenous nor oral [...] IV CONTRAST 10/15/2017 2:12 PM HISTORY: R10.33-Periumbilical dbwn-DOU-04-CM R14.0-Abdominal distension (gaseous)-ICD-10-CM Neither intravenous nor oral [...] pelvis. No acute finding. us Ramonita Hernadez ELECTRICAL SIGN WIRER IMG CT ORDERABLES Final Result * US RIGHT UPPER QUADRANT (10/15/2017 2:02 PM EDT) Anatomical Region Laterality Modality Abdomen Ultrasound 10/15/2017 2:02 PM EDT Impressions 10/15/2017 2:06 PM EDT Impression: Fatty liver Narrative 10/15/2017 2:06 PM EDT Right upper quadrant abdominal ultrasound, [10/15/2017 2:02 PM] Comparison: 03/24/2012 HISTORY: R10.13-Epigastric xekf-TYC-93-CM Findings: Visualized portions of the pancreas and right kidney within normal limits. Fatty liver. Post cholecystectomy. Common bile duct 5 mm in diameter. Procedure Note Sunday Cadena MD - 10/15/2017 Right upper quadrant abdominal ultrasound, [10/15/2017 2:02 PM] Comparison: 03/24/2012 HISTORY: R10.13-Epigastric znkm-FTV-04-CM Findings: Visualized portions of the pancreas and right kidney withinnormal limits. Fatty liver. Post cholecystectomy. Common bile duct 5 mm indiameter. IMPRESSION: Impression: Fatty liver us Viral Cornejo V, DO IMG US ORDERABLES Final Result * CANCER ANTIGEN 19-9 -REF LAB (08/24/2017 4:56 PM EST) CA 19-9 GI 21 0 - 37 U/mL 08/26/2017 1:33 AM EST [facility] [facility] Comment: INTERPRETIVE INFORMATION: Cancer Antigen-GI (CA [...] or absence of malignant disease. Performed by [employer], [address] [place] [address] [email or web address], Kristopher Batista MD, Lab. Director Blood VENOUS BLOOD / Unknown Venipuncture / Unknown 08/24/2017 4:56 PM EST 08/24/2017 4:56 PM EST us Viral Cornejo V, DO CHEMISTRY ORDERABLES Final Res ult [employer] [address] [place] [address] * VITAMIN B12 LEVEL (05/17/2017 5:22 PM EDT) Vitamin B12 417 211 - 946 pg/mL 05/17/2017 9:08 PM EDT [facility] Blood VENOUS BLOOD / Unknown Venipuncture / Unknown 05/17/2017 5:22 PM EDT 05/17/2017 5:22 PM EDT us Ramonita Arehart ELECTRICAL SIGN WIRER CHEMISTRY ORDERABLES Final Res ult [address] [address] * POCT DRUG SCREEN (05/17/2017 2:56 PM EDT) Cocaine(Metab.)Scree n, Urine negative SEP OFFICE Opiates negative SEP OFFICE Methamphetamines Negative NG/ML SEP OFFICE Marijuana Metabolite Negative NG/ML SEP OFFICE Benzodiazepine Screen Urine negative SEP OFFICE Barbiturate Screen, Urine negative SEP OFFICE Propoxyphene negative SEP OFFICE Oxycodone Positive NG/ML SEP OFFICE Buprenorphine negative NG/ML SEP OFFICE 05/17/2017 2:56 PM EDT us Ramonita Arehart ELECTRICAL SIGN WIRER POINT OF CARE TEST ORDERABLES Final Result Performing Organization Address City/[facility]/ZIP Co de Phone Number SEP OFFICE * PATHOLOGY TISSUE REPORT (03/23/2017 8:24 AM EDT) Only the most recent of2 resultswithin the time period is included. Surgical Pathology Report PATIENT NAME:KAROLINE WILLIAM Surgical Pathology Report Accession Number Collected Date/Time Received Date/Time [id number] 03/23/17 08:24 EDT 03/23/17 11:00 EDT Diagnosis [...] dimension. Entirely submitted in one cassette./ BC QL /DH Microscopic Description Microscopic examination is performed and the findings corroborate the diagnosis. _ [facility] 03/23/2017 8:24 AM EDT Rajesh Gutierrez MD PHD PATHOLOGY ORDERABLES Final Result [facility] [address] [place] [address] * INTRAOP AIRWAY PLACEMENT (03/23/2017 8:19 AM EDT) Narrative [facility] - 03/23/2017 8:19 AM EDT Padmini Talavera CRNA 03/23/2017 8:19 AM Intraop Airway Placement: Induction type: IV Airway type: Nasal cannula salter Procedure Note Padmini Talavera CRNA - 03/23/2017 8:19 AM EDT Intraop Airway Placement: Induction type: IV Airway type: Nasal cannula salter Semaj Vega MD [place] ANESTHESIA Final Resu lt Performing Organization Address [facility] [place] [address] * GMED EGD-COLONOSCOPY (03/23/2017 8:00 AM EDT) 03/23/2017 8:00 AM EDT Impressions [facility] - 03/23/2017 10:16 AM EDT Plan: [...] bessy Result - Final Performing Organization Address [facility] de Phone Number [facility] [address] [place] [address] * (ABNORMAL) GLUCOSE METER POC (03/23/2017 7:19 AM EDT) Only the most recent of5 resultswithin the time period is included. Pathologist [facility] Glucose Meter POC 101(H) 70 - 100 mg/dL [facility] Sample Type Capillary [facility] Patient Status Non-Critical Patient [facility] Blood specimen (specimen) 03/23/2017 7:19 AM EDT 03/23/2017 7:19 AM EDT Rajesh Gutierrez MD PHD POINT OF CARE TEST ORDERABL ES Final Result Performing Organization Address [facility] de Phone Number [facility] [address] [place], [place] [address] [address] * HEPATITIS C ANTIBODY - SCREENING (03/02/2017 2:28 PM EDT) Pathologist [facility] Hep C Ab Negative Negative [facility] Blood specimen (specimen) 03/02/2017 2:28 PM EDT 03/02/2017 8:18 PM EDT us Viral Cornejo V, DO HEMATOLOGY ORDERABLES Final Re sult Performing Organization Address [facility] de Phone Number [address] [address] * DIFFERENTIAL (03/02/2017 2:28 PM EDT) Only the most recent of17 resultswithin the time period is included. Neut Percent 63.7 % [facility] Lymph Percent 29.3 % [facility] Charles Mix Percent 6.8 % [facility] Eos Percent 0.0 % [facility] Baso Percent 0.2 % [facility] Neut# 6.2 1.8 - 7.7 x10(3)/mcL [facility] Lymph# 2.8 0.6 - 4.8 x10(3)/[facility] Charles Mix# 0.7 0.0 - 1.3 x10(3)/[facility] Eos# 0.0 0.0 - 0.5 x10(3)/[facility] Baso# 0.0 0.0 - 0.2 x10(3)/[facility] Blood specimen (specimen) 03/02/2017 2:28 PM EDT 03/02/2017 8:26 PM EDT us Viral Cornejo V, DO HEMATOLOGY ORDERABLES Final Re sult Performing Organization Address [facility] de Phone Number [facility] [address] [place] [address] * SCANNED RADIOLOGY REPORT (06/04/2016 2:58 PM EST) Only the most recent of4 resultswithin the time period is included. Anatomical Region Laterality Modality Cardiac Stress T esting 06/04/2016 2:58 PM EST us Unknown Unknown IMG DIAGNOSTIC IMAGING ORDERABLE S Final Result * PARTIAL THROMBOPLASTIN TIME (06/03/2016 4:13 PM EST) Only the most recent of3 resultswithin the time period is included. PTT 26.0 23.5 - 35.0 second(s) [facility] Comment: Therapeutic range for direct thrombin [...] ORDERABLES Final Re sult Performing Organization Address [facility] de Phone Number [facility] [address] [place] [address] * (ABNORMAL) PT / INR (06/03/2016 4:13 PM EST) Only the most recent of3 resultswithin the time period is included. PT 13.2(H) 9.3 - 12.3 second(s) [facility] INR 1.18(H) 0.87 - 1.15 [facility] Comment: Level of Therapy Indications Target INR Range Standard Dose Treatment and prophylaxis of venous 2.0 - 3.0 thrombosis, pulmonary embolism High Dose High risk patients with mechanical 2.5 - 3.5 heart valves Blood specimen (specimen) UPPER LIMB STRUCTURE / Unknown 06/03/2016 4:13 PM EST 06/03/2016 4:13 PM EST Viral Cornejo V, DO HEMATOLOGY ORDERABLES Final Re sult Performing Organization Address [facility] de Phone Number [facility] [address] [place] [address] * POCT URINALYSIS AUTOMATED (06/03/2016 2:31 PM EST) Only the most recent of11 resultswithin the time period is included. Color, UA CLEAR,YELLOW ,ORANGE,RUST SEP OFFICE Clarity, UA CLEAR,CLOUDY SEP OFFICE Glucose, UA N G/DL% SEP OFFICE Bilirubin, UA N POS/NEG SEP OFFICE Ketones, UA N POS/NEG SEP concrete sculptor Grav, UA 1.020 1.001 - 1.035 G/DL SEP OFFICE Blood, UA N POS/NEG SEP OFFICE pH, UA 6 5.0 - 8 SEP OFFICE Protein, UA N POS/NEG SEP OFFICE Urobilinogen, UA N 0.2 - 1.0 MG/DL SEP OFFICE Leukocytes, UA N POS/NEG SEP OFFICE Nitrite, UA N POS/NEG SEP OFFICE Appear BF Clear, Slightly Cloudy Clear, Cloudy SEP OFFICE Lot Number [id number] SEP OFFICE Expiration Date 03/17/18 SEP [...] AM EST Exercise ECG Report [facility] Interpretive Statements Stress Test Lexiscan Reason for [...] 05/29/2016 IMPRESSION Exercise ECG Report [facility] Interpretive Statements Stress Test Lexiscan Reason for [...] 05/01/2016 12:02 PM HISTORY: R10.2-Pelvic and perineal diqw-RFD-49-CM PROCEDURE: Transabdominal and transvaginal pelvic ultrasound. FINDINGS: Uterus surgically absent. Ovaries surgically absent. No focal lesions. Procedure Note Gerardo France MD - 05/01/2016 US PELVIS AND TRANSVAGINAL NON OB COMPLETE 05/01/2016 12:02 PM HISTORY: R10.2-Pelvic and perineal azck-REK-49-CM PROCEDURE: Transabdominal and transvaginal pelvic ultrasound. FINDINGS: Uterus surgically absent. Ovaries surgically absent. No focal lesions. IMPRESSION Normal study us Viral Cornejo V DO IMG US [...] is included. Troponin-T <0.01 <=0.00 ng/mL [facility] Comment: Values > or = 0.01 ng/mL have been shown to have prognostic value. Blood specimen (specimen) 04/01/2016 1:58 PM EDT 04/01/2016 2:01 PM EDT Iftikhar Pike MD CHEMISTRY ORDERABLES Final R esult [facility] [address] [place] [address] * EK EKG 12 LEAD (04/01/2016 1:14 PM EDT) Only the most recent of8 resultswithin the time period is included. Anatomical Region Laterality Modality Other 04/01/2016 1:14 PM EDT Impressions 04/01/2016 6:17 PM EDT Stationary ECG Study [facility] Interpretive Statements SINUS BRADYCARDIA VOLTAGE CRITERIA FOR LVH no old ekg's for comparison Electronically Signed On 04-01-2016 18:17:17 EDT by Ronal Chambers MD Narrative Procedure Note Ronal Chambers MD - 04/01/2016 IMPRESSION Stationary ECG Study [facility] [place] Interpretive Statements SINUS BRADYCARDIA VOLTAGE CRITERIA FOR LVH no old ekg's for comparison Electronically Signed On 04-01-2016 18:17:17 EDT by Ronal Chambers MD Iftikhar Pike MD IMG ECG ORDERABLES Final [...] 02/12/2016 9:17 AM HISTORY: M25.561-Pain in right dufj-GBO-79-CM. COMPARE: 02/21/2015. Small joint effusion, similar to prior. Moderately severe degenerative changes, with spurring involving the patella, distal femur, proximal tibia. Marked and progressive narrowing of medial femoral tibial joint space. No fracture or dislocation. Procedure Note Hilary Elena MD - 02/12/2016 XR KNEE RIGHT AP LATERAL AND SUNRISE STANDING 02/12/2016 9:17 AM HISTORY: M25.561-Pain in right xfth-CUD-02-CM. COMPARE: 02/21/2015. Small joint effusion, similar to [...] [place] medMATCH Ritalinic Acid [facility] [facility] Comments [facility] Comment: [...] Prescribed Drug 4 Percocet(TM) [facility] Creatinine, Urine 199.1 > or = 20.0 mg/dL [facility] UA pH 5.84 4.5 - 9.0 [facility] Oxidant NEGATIVE <200 mcg/mL [facility] Amphetamines NEGATIVE <500 ng/mL [facility] [facility]MATCH Amphetamines CONSISTENT [facility] Barbiturates NEGATIVE <300 ng/mL [facility] [facility]MATCH Barbiturates CON[facility]ENT [facility] Benzodiazepines POSITIVE(A) <100 ng/mL [facility] ALPHAHYDROXYALPRAZOLAM NEGATIVE <25 ng/mL [facility] medMATCH aOH alprazolam CONSISTENT [facility] ALPHAHYDROXYMIDAZOLAM NEGATIVE <50 ng/mL [facility] MEDMATCH AOH MIDAZOLAM CONSI[facility]ENT [facility] ALPHAHYDROXYTRIAZOLAM-QU EST NEGATIVE <50 ng/mL [facility] medMATCH aOH triazolam [facility] Aminoclonazepam NEGATIVE <25 ng/mL [email or web address] medMATCH Aminoclonazepam [facility]ENT [facility] Hydroxyethylflurazepam NEGATIVE <50 ng/mL [facility] MEDMATCH OH ET FLURAZEPAM CONSI[facility]ENT [facility] LORAZEPAM-QUEST 3,970(H) <50 ng/mL [facility] medMATCH Lorazepam [facility] NORDIAZEPAM-QUEST NEGATIVE <50 ng/mL [facility] medMATCH Nordiazepam [facility] OXAZEPAM-QUEST NEGATIVE <50 ng/mL [facility] medMATCH Oxazepam CON[facility]STENT [facility] TEMAZEPAM-QUEST NEGATIVE <50 ng/mL [facility] medMATCH Temazepam [facility] Marijuana Metabolite NEGATIVE <20 ng/mL [facility] [facility]MATCH Marijuana Metab [facility] Cocaine Metabolite NEGATIVE <150 ng/mL [facility] [facility]MATCH Cocaine Metab [facility] Methadone NEGATIVE <100 ng/mL [facility] medMATCH Methadone [facility] Opiates NEGATIVE CONFIRMED <100 ng/mL [facility] CODEINE-QUEST NEGATIVE <50 ng/mL [facility] medMATCH Codeine CONSISTENT [facility] HYDROCODONE-QUEST NEGATIVE <50 ng/mL [facility] medMATCH Hydrocodone [facility] HYDROMORPHONE-QUEST NEGATIVE <50 ng/mL [facility] [facility]MATCH Hydromorphone [facility] MORPHINE-QUEST NEGATIVE <50 ng/mL [facility] medMATCH Morphine CONSISTENT Q [facility] NORHYDROCODONE NEGATIVE <50 ng/mL [email or web address]WN MEDMATCH NORHYDROCODONE [facility] Oxycodone POSITIVE(A) <100 ng/mL [facility] NOROXYCODONE 2,590(H) <50 ng/mL [facility] MEDMATCH NOROXYCODONE [facility] Comment:Noroxycodone is a me tabolite of Oxycodone. Oxycodone 626(H) <50 ng/mL [facility] medMATCH Oxycodone [facility] OXYMORPHONE-QUEST 294(H) <50 ng/mL [facility] medMATCH Oxymorphone [facility] Comment: Oxymorphone is a metabolite of oxycodone as well as a prescribed drug. medMatch Comments QU [facility] Comment: medMATCH comments are: - present when drug test results may be the result of metabolism of one or more drugs or when results are inconsistent with prescribed medication(s) listed. - may be blank when drug results are consistent with prescribed medication(s) listed. 02/07/2016 10:4 1 PM EDT 02/08/2016 5:02 PM EDT Narrative Resulting Agency Comment Performing Organization Information: Site ID: Name: [facility] Address: [address] [place] [address] [place] [address] Director: Maynor Valera Sample Ph.D. us Viral Cornejo V, DO [facility] ORDERABLE (NON-SEH) Final Result [facility] [address] [place] [address] [place] [address], [facility] * (ABNORMAL) POCT MICROALBUMIN (02/07/2016 2:01 PM [...] in the prepatellar soft tissues. us Isaac Washington MD IM MRI ORDERABLES Final Result * XR KNEE [...] TO MODERATE DJD. us Jose Bass DO IMG DIAGNOSTIC IMAGING ORDERAB LES Final Result * MM MAMMO DIGITAL DIAGNOSTIC RIGHT (08/01/2014 1:54 PM EST) Anatomical Region Laterality Modality Breast Right Mammography 08/02/2014 9:08 AM EST Impressions 08/02/2014 11:34 AM EST : Probably benign (TYC-Fnpdqahn-1) ~ RECOMMENDATION: Follow-up diagnostic mammogram of the [...] of the right breast. ~ us Viral Cornejo V, DO IMG MAMMOGRAPHY ORDERABLES Fin al Result * MM MAMMO DIGITAL SCREENING W CAD BILAT (06/20/2014 3:01 PM EST) Only the most recent of2 resultswithin the time period is included. Anatomical Region Laterality Modality Breast Bilateral Mammography 06/21/2014 9:18 AM EST Impressions 06/21/2014 10:22 AM EST : Incomplete-need additional imaging evaluation (MIQ-Fwtroxbr-1) ~ RECOMMENDATION: Special view mammogram of the [...] to prior studies the most recent being 11-7-11. ~ Procedure Note Padmini Mann MD - 06/21/2014 Procedure:MM MAMMO DIGITAL SCREENING W CAD BILAT ~ Reason for exam: screening (asymptomatic). ~ MM MAMMO DIG SCREEN CAD BILAT Bilateral CC and MLO view(s) were taken. There are scattered fibroglandular densities. There are 1-5 new indeterminate grouped punctate calcifications in the mid right breastupper outer quadrant. Compared to prior studies the most recent ajsww24-1-91. ~ IMPRESSION: Incomplete-need additional imaging evaluation (GJU-Tmzrudbg-9) ~ RECOMMENDATION: Special view mammogram of the [...] 02:33:41 PM HISTORY: 719.46-Pain in joint, lower xjo-UIR-4-CM. COMPARISON: 10/02/2009. 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 Further joint space narrowing and more pronounced hypertrophic bony change. No joint effusion. No fracture or dislocation. Procedure Note Chana Bright MD - 06/20/2014 XR KNEE LEFT AP LATERAL AND AXIAL Jun 20, 2014 02:33:41 PM HISTORY: 719.46-Pain in joint, lower lvx-LHK-2-CM. COMPARISON: 10/02/2009. Tricompartment osteoarthritis with progression from [...] 20, 2014 02:33:41 PM HISTORY: 729.5-Pain in noqo-TUL-3-CM FINDINGS: No significant osseous, joint or soft tissue abnormality is seen. Procedure Note Allen Smart MD - 06/20/2014 RIGHT HUMERUS 2 VIEWS, Jun 20, 2014 02:33:41 PM HISTORY: 729.5-Pain in oppk-RXA-3-CM FINDINGS: No significant osseous, joint or soft tissue abnormality isseen. IMPRESSION: Normal study. us Viral Cornejo V, DO IMG DIAGNOSTIC IMAGING ORDERAB LES Final Result * LUTEINIZING HORMONE (04/11/2014 2:30 PM EDT) Only the most recent of2 resultswithin the time period is included. LH 24.63 mIU/mL [facility] Comment: Suggested Reference Ranges (mIU/mL) Follicular Phase 2.4 - 12.6 Ovulation Phase 14.0 - 95.6 Luteal Phase 1.0 - 11.4 Postmenopause 7.7 - 58.5 Blood specimen (specimen) UPPER LIMB STRUCTURE / Unknown 04/11/2014 2:30 PM EDT 04/11/2014 9:09 PM EDT us Viral Cornejo V, DO CHEMISTRY ORDERABLES Final Res ult [facility] [address] [place] [address] * FOLLICLE STIMULATING HORMONE LEVEL (04/11/2014 2:30 PM EDT) Only the most recent of2 resultswithin the time period is included. FSH 41.40 mIU/mL [facility] Comment: Suggested Reference Range (mIU/mL) Follicular Phase 3.5 - 12.5 Ovulation Phase 4.7 - 21.5 Luteal Phase 1.7 - 7.7 Postmenopause 25.8 - 134.8 Blood specimen (specimen) UPPER LIMB STRUCTURE / Unknown 04/11/2014 2:30 PM EDT 04/11/2014 9:09 PM EDT us Viral Cornejo V, DO CHEMISTRY ORDERABLES Final Res ult Performing Organization Address [facility]/ZIP Co de Phone Number [facility] [address] [place] [address] * SCANNED RHYTHM STRIPS (11/14/2013 10:02 AM EDT) Only the most recent of4 resultswithin the time period is included. Anatomical Region Laterality Modality Other us Unknown Unknown IMG ECG ORDERABLES Final Result * MAGNESIUM LEVEL (11/13/2013 4:53 AM EDT) Magnesium 1.9 1.6 - 2.4 mg/dL [facility] Blood specimen (specimen) UPPER LIMB STRUCTURE / Unknown 11/13/2013 4:53 AM EDT 11/13/2013 5:08 AM EDT us Juliane Estevez ELECTRICAL SIGN WIRER CHEMISTRY ORDERABLE S Final Result Performing Organization Address [facility]/ZIP Co de Phone Number [facility] [address] [place] [address] * XR CHEST AP PORTABLE (11/12/2013 10:08 [...] IMPRESSION: No acute findings. Jared James MD IMG DIAGNOSTIC IMAGING ORDER BUFFY Final Result * CT HEAD WO CONTRAST (09/08/2013 4:03 PM EST) Only the most recent of2 resultswithin the time period is included. Anatomical Region Laterality Modality Head Computed Tomogra phy 09/08/2013 3:47 PM EST Impressions 09/08/2013 4:12 PM EST [...] acute intracranial process by noncontrast head CT. us Debbie Figueroa MD IMG CT ORDERABLES Final Res ult * SPECIMEN VALIDITY TEST PANEL-QUEST (08/02/2013 12:00 AM EST) Creatinine, Urine 66.9 > or = 20.0 mg/dL [facility] [place] UA pH 6.28 4.5 - 9.0 [facility] [place] Oxidant NEGATIVE <200 mcg/mL [facility] [place] 08/02/2013 08/04/2013 3:1 9 AM EST Narrative Resulting Agency Comment Performing Organization Information: Site ID: Name: [facility] Address: [address] [place] [address] [place] [address] Director: Tomeka Mckoy PhD us Viral Cornejo V, DO [facility]PDM ORDERABLE (NON-SEH) Final Result [facility] [address] [facility] [place] [address], [facility] * PDM, HEROIN METAB,QN,W/MEDMATCH,U-QUEST (08/02/2013 12:00 AM EST) Prescribed Drug 1 Lorazepam [facility] [place] 6 Acetylmorphine NEGATIVE <10 ng/mL [facility] [place] medMATCH 6 Acetylmorph CONSISTENT [facility] [place] medMatch Comments QU [...] Comment Performing Organization Information: Site ID: Name: [facility] Address: [address] [facility] [place] [address] Director: Tomeka Mckoy PhD us Viral Cornejo V, DO [facility] ORDERABLE (NON-SEH) Final Result Performing Organization Address [facility] Co de Phone Number [facility] [address] [place] [address], [facility] * PDM,METHYLPHENIDATE METAB,QN,W/MEDMATCH,U-QUEST (08/02/2013 12:00 AM EST) [...] Performing Organization Information: Site ID: Name: [facility] Address: [address] [place] [address] [place] [address] Director: Tomeka Mckoy PhD us Viral Cornejo V, DO [facility] ORDERABLE (NON-SEH) Final Result Performing Organization Address [facility] de Phone Number [facility] [place] [address] [place] [address], [facility] * PDM, COCAINE METAB, W/CONF,W/MEDMATCH,U-QUEST (08/02/2013 12:00 [...] Performing Organization Information: Site ID: EMILY Name: [employer] Address: [address] [facility] [place] [address] Director: Tomeka Mckoy PhD us Viral Cornejo V, DO [facility] ORDERABLE (NON-SEH) Final Result [facility] [address] [place] [address], [facility] * (ABNORMAL) PDM,BENZODIAZEPINES W/CONF,W/MEDMATCH,U-QUEST (08/02/2013 12:00 AM [...] Comment Performing Organization Information: Site ID: Name: [facility] [employer] Address: [address] [facility] [address] Director: Tomeka Mckoy PhD us Viral Cornejo V, DO [facility] ORDERABLE (NON-SEH) Final Result Performing Organization Address [facility] Co de Phone Number [facility]YMAJESTIC[facility] [address] [facility] [place] [address], [facility] * PDM, AMPHETAMINES, W/CONF,W/MEDMATCH,U-QUEST (08/02/2013 12:00 AM EST) [facility] Prescribed Drug 1 Lorazepam [facility] [place] [...] Comment Performing Organization Information: Site ID: Name: [facility] Address: [address] [facility] [place] [address] Director: Tomeka Mckoy PhD us Viral Cornejo V, DO [facility] ORDERABLE (NON-SEH) Final Result Performing Organization Address [facility]/ZIP Co de Phone Number [facility] [address] [facility] [place] [address], [facility] * (ABNORMAL) PDM, OXYCODONE, W/CONF,W/MEDMATCH,U-QUEST (08/02/2013 12:00 [...] a prescribed drug. medMatch Comments [facility] [place] Comment: medMATCH comments are: - present when drug test results may be the result of metabolism of one or more drugs or when results are inconsistent with prescribed medication(s) listed. - may be blank when drug results are consistent with prescribed medication(s) listed. 08/02/2013 08/04/2013 3:1 9 AM EST Narrative Resulting Agency Comment Performing Organization Information: Site ID: KP Name: Za [facility] Address: [address] [place] [address] [place] [id number] Director: Factor.io Leelee PhD us Viral Cornejo V, DO [facility] ORDERABLE (NON-[facility]) Final Result ZA ZA NEWTONKATELIN [address] [place] [id number], [facility] * PDM, OPIATES, W/CONF,W/MEDMATCH,U-QUEST (08/02/2013 12:00 AM EST) Prescribed Drug 1 Lorazepam [facility] [place] Opiates NEGATIVE CONFIRMED <100 ng/mL [facility] Codeine NEGATIVE <50 ng/mL [facility] [place] medMATCH Codeine CONSISTENT [facility] Morphine Urine NEGATIVE <50 ng/mL [facility] [...] Comment Performing Organization Information: Site ID: Name: [facility] Address: [address] [place] [address] [place] [id number] Director: Factor.io Leelee PhD us Viral Cornejo V, DO [facility] ORDERABLE (NON-[facility]H) Final Result ZA MENDENHALL [employer] PartnersKATELIN [address] [place] [address] [place] [address], [facility] * PDM, METHADONE, W/CONF,W/MEDMATCH,U-QUEST (08/02/2013 12:00 AM [...] Comment Performing Organization Information: Site ID: Name: [facility] Address: [address] [place] [address] Director: Tomeka Mckoy PhD us Viral Cornejo V, DO [facility] ORDERABLE (NON-[facility]H) Final Result Performing Organization Address [facility] de Phone Number ZA [facility] [address] [place] [address]RUST * PDM,MARIJUANA METAB W/CONF,W/MEDMATCH,U-QUEST (08/02/2013 12:00 AM EST) Pathologist [facility] Prescribed Drug 1 Lorazepam [facility] [place] Marijuana Metabolite NEGATIVE <20 ng/mL [facility] [place] medMATCH Marijuana Metab CONSISTENT [facility] [place] [...] Performing Organization Information: Site ID: Name: Za NewtonBussey Address: [address] [place] [id number] Director: Tomeka Mckoy PhD us Viral Cornejo V, DO [facility] ORDER[facility] (NON-[facility]H) Final Result Performing Organization Address [facility] de Phone Number ZA KIT digitalLEROYCHAN [facility] [address] [place] [address], [facility] * SCANNED HOLTER MONITOR (06/26/2013 3:48 PM [...] averaging 78 BPM. 23 PVC's. No PAC's. Kristopher Crump MD IMG HOLTER MONITOR ORDER BUFFY Final Result * [...] DO POINT OF CARE CARDIOLOGY Final Result SEP OFFICE * LDL, CALCULATED (01/28/2013 11:50 AM EDT) Only the most recent of2 resultswithin the time period is included. LDL Calculated 94 <=100 mg/dL [facility] Comment: < 100 Optimal 100 - 129 Near or above optimal 130 - 159 Borderline High 160 - 189 High >= 190 Very High Blood specimen (specimen) 01/28/2013 11:50 AM EDT 01/28/2013 6:50 PM EDT us Viral Cornejo V, DO CHEMISTRY ORDERABLES Final Res ult [facility] [address] [place] [address] * POCT RAPID STREP A (09/28/2012 2:17 PM EDT) Strep A Ag None Detected None Detected Pos/Neg SEP OFFICE Lot Number SEP OFFICE Expiration Date SEP OFFICE SeriAl # SEP OFFICE Control Line Yes/No SEP OFFICE 09/28/2012 2:17 PM EDT us Karen Gonzalez MD POINT OF CARE TEST ORDERABLES Final Result Performing Organization Address City/[facility]/ZIP Co de Phone Number SEP OFFICE * POCT INFLUENZA A/B (09/28/2012 2:16 PM EDT) Influenza A Ag negative SEP OFFICE Influenza B Ag negative SEP OFFICE Lot Number SEP OFFICE Expiration Date SEP OFFICE 09/28/2012 2:16 PM EDT us Karen Gonzalez MD POINT OF CARE TEST [...] [place] Benzodiazepines NEGATIVE <100 ng/mL [facility] Marijuana Metabolite NEGATIVE <20 ng/mL [facility] Cocaine Metabolite NEGATIVE <150 ng/mL [facility] Methadone NEGATIVE <150 ng/mL [facility] Opiates NEGATIVE CONFIRMED <100 ng/mL [facility] Codeine NEGATIVE <50 ng/mL [facility] Morphine Urine NEGATIVE <50 ng/mL [facility] Hydrcodone NEGATIVE <50 ng/mL [facility] Hydromorphone NEGATIVE <50 ng/mL [facility] Oxycodone POSITIVE(A) <100 ng/mL [facility] Oxycodone 135(H) <50 ng/mL [facility] Oxymorphone 83(H) <50 ng/mL [facility] Phencyclidine NEGATIVE <25 ng/mL [facility] Propoxyphene, Screen NEGATIVE <300 ng/mL [facility] 06/01/2012 1:38 PM EST 06/02/2012 12:42 AM EST Narrative Resulting Agency Comment Performing Organization Information: Site ID: Name: Za Gonzalez Address: [address] [place] [address] Director: Tomeka Mckoy PhD us Ar MENDENHALL-PDM ORDERABLE (NON -SEH) Final Result ZA GONZALEZ [address] [place] [phone], [facility] * (ABNORMAL) PDM,BENZODIAZEPINE, QN,W/MEDMATCH,U-QUEST (06/01/2012 1:38 PM EST) Pathologist [facility] Prescribed Drug 1 Ativan(TM) Q [facility] medMatch Comments [facility] Comment: medMATCH comments are: - present when drug test results may be the result of metabolism of one or more drugs or when results are inconsistent with prescribed medication(s) listed. - may be blank when drug results are consistent with prescribed medication(s) listed. 06/01/2012 1:38 PM EST 06/02/2012 12:42 AM EST Narrative Resulting Agency Comment Performing Organization Information: Site ID: KP Name: Za Diehln Address: [address] [place] [address] Director: Tomeka Mckoy PhD Ar Vaca MD [facility]-PDM ORDERABLE (NON -[facility]) Final Result ZA MEEKSLIME [address] [place] [phone], [facility] * ESTRADIOL LEVEL (03/25/2012 3:44 PM EDT) [facility] Estradiol Lvl 17 pg/mL [facility] Comment: Early Follicular 20 - 150 pg/mL Late Follicular 40 - 350 pg/mL Midcycle Peak 120 - 400 pg/mL Luteal Phase 30 - 200 pg/mL Postmenopause 0 - 50 pg/mL Males 0 - 50 pg/mL Blood specimen (specimen) UPPER LIMB STRUCTURE / Unknown 03/25/2012 3:44 PM EDT 03/25/2012 8:19 PM EDT us Ar Vaca MD CHEMISTRY ORDERABLES Fin al Result [facility] [address] [place] [address] * CT ABDOMEN PELVIS W CONTRAST (03/24/2012 [...] 11:14:41 AM HISTORY: 789.01-Abdominal pain, right upper blsydlvc-CSE-9-CM. 75 mL of Isovue-370 administered. Oral contrast [...] 11:14:41 AM HISTORY: 789.01-Abdominal pain, right upper fhslumyl-WJE-0-CM. 75 mL of Isovue-370 administered. Oral contrast was given.. COMPARISON: 05/11/2011. The liver and spleen are unremarkable. There is a small accessory spleen,unchanged. There's been a cholecystectomy. Kidneys and pancreas show no significantabnormality. No free air or free fluid is present. Opacified bowel loops are normal. No pelvic mass oradenopathy is seen. There's been a hysterectomy. IMPRESSION: Unremarkable CT abdomen and pelvis. Chaitanya Sanchez MD [facility] [place] ORDERABLES Final Result * XR LUMBAR [...] Multifocal lumbar degenerative change. No acute fracture. Dania Loving DO [facility] DIAGNOSTIC IMAGING ORDERAB LES Final Result * [...] Widely patent bilateral sinoantralwindows. Ar Vaca MD [facility] [place] ORDERABLES Final Result * (ABNORMAL) VITAMIN D, 62-PRHATBF-FNPY (12/25/2010 3:03 PM EDT) Vit D 25 OH 27(L) 30 - 80 ng/mL [facility] Comment: REFERENCE INTERVAL: Vitamin D, 25-Hydroxy [...] 3:03 PM EDT 12/25/2010 11:07 PM EDT us Ar Vaca MD CHEMISTRY ORDERABLES Fin al Result Performing Organization Address [facility] Co de Phone Number [facility] [address] [place] [address] * TROPONIN-I (11/29/2010 9:27 AM EDT) Troponin-I 0.00 <=0.06 ng/mL [facility] Comment: Troponin Level Significance < 0.01 [...] 9:27 AM EDT 11/29/2010 9:28 AM EDT us Della Perez MD CHEMISTRY ORDERABLES Final R esult Performing Organization Address [facility] Co de Phone Number [facility] [address] [place] [address] * D-DIMER (11/29/2010 9:27 AM EDT) D-Dimer <230 <=230 ng/mL [facility] Comment: This test has been clinically validated by the quarter seamer and approved by the FDA for exclusion [...] 9:27 AM EDT 11/29/2010 9:28 AM EDT us Della Perez MD HEMATOLOGY ORDERABLES Final Result [facility] [address] [place] [address] * XR FOOT RIGHT AP LATERAL AND [...] AM EDT Bone densitometry was performed on Stream Tags No comparisons available. CLINICAL INDICATIONS: Patient is [...] Hip fracture 1.6% Procedure Note Boyd Ray - 11/07/2010 Bone densitometry was performed on Stream Tags No comparisons available. CLINICAL INDICATIONS: Patient is [...] (FINAL) (03/23/2010 8:55 PM EDT) Anticonvulsants Absent [facility] Antidepressants Absent [facility] Antihistamines Absent [facility] Cardiac Depressants/Beta Blockers Absent [facility] Barbiturates/Hypnot ics Absent [facility] Opiates/Narcotic Analgesics Absent [facility] Other Analgesics Absent [facility] Stimulants Absent [facility] Tranquilizers Present(A) [facility] Comment: Tranquilizers _ Benzodiazepine Class _ Carisoprodol _ Meprobamate x Phenothiazine Metabolites (unconfirmed) Miscellaneous Absent [facility] Urine specimen (specimen) 03/23/2010 8:55 PM EDT 03/24/2010 6:28 PM EDT Gabby Capone MD URINE ORDERABLES Final Resul t Performing Organization Address [facility] de Phone Number [facility] [address] [place] [address] * (ABNORMAL) DRUG SCREEN RAPID (03/23/2010 8:55 PM EDT) Tricyclic Rapid Absent [facility] Barbiturate Rapid Absent [facility] Methadone Rapid Absent [facility] Benzodiazepines Rapid Present(A) [facility] Cannabinoid Rapid Absent [facility] Opiate Rapid Absent [facility] Amphetamine Rapid Absent [facility] Cocaine Rapid Absent [facility] Propoxyphene Rapid Absent [facility] Methamphetamine Rapid Absent [facility] Urine specimen (specimen) 03/23/2010 8:55 PM EDT 03/23/2010 9:00 PM EDT Gabby Capone MD URINE ORDERABLES Final Resul t Performing Organization Address [facility] de Phone Number [facility] [address] [place] [address] * (ABNORMAL) .DRUG SCREEN URINE (PRELIMINARY) (03/23/2010 8:55 PM EDT) Cannabinoid Metabolites Absent 50 ng/mL [facility] Benzodiazepine Class Absent 200 ng/mL [facility] Cocaine Metab Absent 300 ng/mL [facility] Opiates Class Present(A) 300 ng/mL [facility] Barbiturate Class Absent 200 ng/mL [facility] Amphetamine Class Absent 1000 ng/mL [facility] Urine specimen (specimen) 03/23/2010 8:55 PM EDT 03/24/2010 6:28 PM EDT Gabby Capone MD URINE ORDERABLES Final Resul t Performing Organization Address [facility] Co de Phone Number [facility] [address] [place] [address] * ALCOHOL MEDICAL (03/23/2010 7:51 PM EDT) Alcohol Medical <10 mg/dL [facility] Blood specimen (specimen) UPPER LIMB STRUCTURE / Unknown 03/23/2010 7:51 PM EDT 03/23/2010 7:51 PM EDT Gabby Capone MD CHEMISTRY ORDERABLES Final R esult Performing Organization Address City/[facility] Co de Phone Number [facility] [address] [place] [address] * ACETAMINOPHEN LEVEL (03/23/2010 7:51 PM EDT) Acetaminophen Lvl <10 <=30 mcg/mL [facility] Comment: Toxic Overdose: Acetamin levels > 200 ug/mL 4 hours after ingestion - Hepatic necrosis is probable. Acetamin levels > 50 ug/mL 12 hours after ingestion - Hepatic necrosis is probable. Blood specimen (specimen) UPPER LIMB STRUCTURE / Unknown 03/23/2010 7:51 PM EDT 03/23/2010 9:10 PM EDT Gabby Capone MD CHEMISTRY ORDERABLES Final R esult Performing Organization Address [facility] Co de Phone Number [facility] [address] [place] [address] * SALICYLATE LEVEL (03/23/2010 7:51 PM EDT) Salicylate <1.5 mg/dL [facility] Comment: Therapeutic Range: < 20 mg/dL Mild Toxicity: 30 - 40 mg/dL Severe Toxicity > 60 mg/dL Blood specimen (specimen) UPPER LIMB STRUCTURE / Unknown 03/23/2010 7:51 PM EDT 03/23/2010 9:10 PM EDT Gabby Capone MD CHEMISTRY ORDERABLES Final R esult Performing Organization Address [facility] Co de Phone Number [facility] [address] [place] [address] * SCANNED OR REPORT (03/04/2010 12:00 AM EDT) Narrative 03/04/2010 9:40 AM EDT Ordered by an unspecified provider. Transcriptions Unknown, U - 03/04/2010 3:38 AM EDT U Unknown PROCEDURE/MINOR SURGICAL ORDERAB LES Final Result * SCANNED OR REPORT (03/02/2010 12:00 AM EDT) Narrative 03/02/2010 10:14 AM EDT Ordered by an unspecified provider. Transcriptions Unknown, U - 03/02/2010 10:04 AM EDT U Unknown PROCEDURE/MINOR SURGICAL ORDERAB LES Final Result * SCANNED OR REPORT (03/02/2010 12:00 AM EDT) Narrative 03/02/2010 10:14 AM EDT Ordered by an unspecified provider. Transcriptions Unknown, U - 03/02/2010 10:04 AM EDT U Unknown PROCEDURE/MINOR SURGICAL ORDERAB LES Final Result * SCANNED OR REPORT (03/02/2010 12:00 AM EDT) Narrative 03/02/2010 5:13 AM EDT Ordered by an unspecified provider. Transcriptions Unknown, U - 03/02/2010 5:04 AM EDT U Unknown PROCEDURE/MINOR SURGICAL ORDERAB LES Final Result * SCANNED OR REPORT (02/27/2010 12:00 AM EDT) Narrative 02/27/2010 6:40 AM EDT Ordered by an unspecified provider. Transcriptions Unknown, U - 02/27/2010 6:35 AM EDT U Unknown PROCEDURE/MINOR SURGICAL ORDERAB LES Final Result * SCANNED OR REPORT (02/04/2010 12:00 AM EDT) Narrative 02/05/2010 2:59 PM EDT Ordered by an unspecified provider. Transcriptions Unknown, U - 02/04/2010 1:13 PM EDT [facility] Unknown PROCEDURE/MINOR SURGICAL ORDERAB LES Final Result * EK EKG REG (01/01/2010 2:38 PM EDT) Only the most recent of4 resultswithin the time period is included. Anatomical Region Laterality Modality Other 01/01/2010 2:38 PM EDT Narrative 01/01/2010 5:35 PM EDT Sinus rhythm Normal ECG Continuous Miner- VALERIA OSORIO Released Date Time- 01/01/101734 Procedure Note Valeria Osorio MD - 01/01/2010 Sinus rhythm Normal ECG Continuous Miner- VALERIA Thomas Physician- VALERIA OSORIO Released Date Time- 01/01/101734 Efrem Zimmerman MD [facility] STAR CARD HISTORICAL Fi nal Result * MM DIG [...] compared with prior studies. IMPRESSION- Benign finding (HCN-Qlnoagxl-7) Stable mass right breast. RECOMMENDATION- Routine screening [...] was reviewed by a Radiologist and CAD. Continuous Miner- MARY ANN YADAV Reading Physician- BOYD RAY MD Released Date Time- 12/30/09 1444 Procedure Note Boyd Ray - 12/30/2009 Procedure-GC MM DIG SCR ADIS [...] compared with prior studies. IMPRESSION- Benign finding (VPZ-Wrzhstdu-7) Stable mass right breast. RECOMMENDATION- Routine screening [...] was reviewed by a Radiologist and CAD. Continuous Miner- MARY ANN Thomas Physician- BOYD RAY MD Released Date Time- 12/30/09 1444 Ar Vaca MD [facility] Final Result * MR LOW EXT [...] meniscus, but no evidence of discrete tear. Continuous Miner- GRZEGORZ Thomas Physician- JEFFERY CIFUENTES M.D. Released [...] meniscus, but no evidence of discrete tear. Continuous Miner- GRZEGORZ Thomas Physician- JEFFERY CIFUENTES M.D. Released Date Time- 10/11/09 1531 us Ar Vaca MD [facility] Final Result * XR KNEE GC [...] Impression- Stable left knee. Mild tricompartmental osteoarthritis. Continuous Miner- GRZEGORZ Thomas Physician- DISHA CORDERO M.D. Released Date Time- 10/02/09 0956 Procedure Note Disha Cordero - 10/08/2009 Four view left knee, 10/02/2009. Indications- Trauma, pain. Findings- 4 views of the left knee are compared to previous exam, 09/25/2009. No significant interval change. Mild tricompartmental osteoarthritis, which is stable. No acute fractures, dislocations or joint effusion. Impression- Stable left knee. Mild tricompartmental osteoarthritis. Continuous MinerMargaux Thomas Physician- DISHA CORDERO M.D. Released Date Time- 10/02/09 0956 Debbie Figueroa MD [facility] HISTORICAL Final Result * CT ABD/PELVIS LABORATORY COORDINATOR GC (04/18/2009 8:20 AM EDT) Only the [...] no significant change from prior 02/06/2009 exam. Continuous Miner- CARMINA KAYE Reading Physician- HILARY ELENA MD [...] no significant change from prior 02/06/2009 exam. Continuous Miner- CARMINA Thomas Physician- HILARY ELENA MD Released Date Time- 04/18/09 1619 us Cathleen Pippa IMG [facility] RAD HISTORICAL Kaur l Result * XR [...] Prior cholecystectomy. Impression- Nonspecific, nonobstructive abdominal series. Continuous Miner- CHANA DELGADO Reading Physician- SAJAN GONZALEZ DO Released Date Time- [...] Prior cholecystectomy. Impression- Nonspecific, nonobstructive abdominal series. Continuous Miner- CHANA DELGADO Reading Physician- SAJAN GONZALEZ DO Released Date Time- 04/16/09 0015 Cathleen Das [facility] Kaur zhong Result * CC CARDIAC PROCEDURE (12/27/2008 7:33 [...] area over the right femoral artery. A 5-Maori hemostasis sheath was placed in the right femoral artery using a modified Seldinger technique. Selective coronary angiography of the right and left coronary arteries was performed using the standard technique. A 5-Maori angled pigtail catheter was used to perform [...] CC- Dr. Crump and Dr. Froilan Vaca. Continuous Miner- LAURIE Thomas Physician- KRISTOPHER CRUMP MD Released [...] area over the right femoral artery. A 5-Maori hemostasis sheath was placed in the right femoral artery using a modified Seldinger technique. Selective coronary angiography of the right and left coronary arteries was performed using the standard technique. A 5-Maori angled pigtail catheter was used to perform [...] CC- Dr. Crump and Dr. Froilan Vaca. Continuous Miner- LAURIE Thomas Physician- KRISTOPHER CRUMP MD Released Date Time- 12/27/08 1354 Kristopher Crump MD [facility] ICAL Final Result * CT HEAD [facility] (10/30/2008 4:40 PM EDT) Anatomical Region Laterality [...] abnormal brain attenuation are identified. Impression- Normal. Continuous Miner- CHANO Thomas Physician- LIZZIE KEENAN M.D. Released [...] abnormal brain attenuation are identified. Impression- Normal. Continuous Miner- CHANO MONTGOMERY Reading Physician- LIZZIE KEENAN M.D. Released Date Time- 10/30/081957 us Viral Cornejo V, DO [facility] STAR RAD HISTORICAL Fi nal Result * MM DIG DIAG ADIS PANEL W/CAD GC (10/17/2008 8:54 AM EDT) Anatomical Region Laterality Modality Other 10/17/2008 8:54 AM EDT Narrative 10/17/2008 1:29 PM EDT Procedure-GC MM DIG DIAG ADIS PANEL W/CAD [...] pinpoint area of pain. IMPRESSION- Benign finding (KWF-Amheingm-4) Annual screening mammogram recommended. RECOMMENDATION- Routine screening [...] was reviewed by a Radiologist and CAD. Continuous Miner- MARY ANN YADAV Reading Physician- DELLA OROZCO [...] pinpoint area of pain. IMPRESSION- Benign finding (FXJ-Ykwraqno-1) Annual screening mammogram recommended. RECOMMENDATION- Routine screening [...] was reviewed by a Radiologist and CAD. Continuous Miner- MARY ANN YADAV Reading Physician- DELLA OROZCO MD. Released Date Time- 10/17/08 1627 Ar Vaca MD [facility] HISTORI DELIA Final Result * ST PHARM STRESS GC [...] report. 3. Adenosine protocol. Ebony Villavicencio 10-15-08 Continuous Miner- ISMAEL Thomas Physician- KRISTOPHER CRUMP MD Released [...] 2. See nuclear report. 3. Adenosine protocol. Kristopher Strickmeyer, M. D. bm10-15-08 Continuous Miner- ISMAEL Thomas Physician- KRISTOPHER CRUMP MD Released Date Time- 10/16/08 0931 us Kristopher Crump MD [facility] STAR CARD HISTOR ICAL Final Result [...] is no pericardial effusion. Ebony Villavicencio. 10-15-08 Continuous Miner- ISMAEL Thomas Physician- KRISTOPHER CRUMP MD Released Date Time10/15/08 154 Procedure Note Kristopher Crump - 09/26/2009 RECORDED [...] 9. There is no pericardial effusion. Ebony Villavicencio10-15-08 Continuous Miner- ISMAEL Thomas Physician- KRISTOPHER CRUMP MD Released Date Time10/15/08 154 Kristopher Crump MD IMG SE STAR CARD HISTOR ICAL Final Result * NM NUCLEAR CARD PROC LABORATORY COORDINATOR GC (10/11/2008 10:51 AM EDT) Anatomical Region [...] SPECT gated myocardial perfusion scan is 45-75%. Continuous Miner- CHANA DELGADO Reading Physician- KRISTOPHER CRUMP MD Released Date [...] SPECT gated myocardial perfusion scan is 45-75%. Continuous Miner- CHANA DELGADO Reading Physician- KRISTOPHER CRUMP MD Released Date Time- 10/16/[address] [facility] Final Result * XR KNEE (04/12/2007 1:15 PM EDT) Anatomical Region Laterality Modality Other 04/12/2007 1:15 PM EDT Narrative 04/12/2007 2:04 PM EDT Right knee - 3 views History- Pain. Findings- There are spurs at the patellofemoral joint. Very small spurs are seen medially and laterally. Impression- No acute findings. Patellofemoral osteoarthritis. Continuous Miner- LAURIE BATISTA Reading Radiologist- DONNA TAVAREZ MD Released Date Time- 04/12/073 Procedure Note Ronaldo Donna Hirsch - 09/25/2009 Right knee - 3 views History- Pain. Findings- There are spurs at the patellofemoral joint. Very small spurs are seen medially and laterally. Impression- No acute findings. Patellofemoral osteoarthritis. Continuous Miner- LAURIE BATISTA Reading Radiologist- DONNA TAVAREZ MD Released Date Time- 04/12/073 Ar Vaca MD [facility] Final Result * MM MAMMO DIAG [...] compared with prior studies. IMPRESSION- Probably benign (DNR-Amiarbsw-8) RECOMMENDATION- Routine screening mammogram in 6 months. * The patient with a palpable abnormality, unexplained by breast imaging, should be managed on clinical basis by the attending physician. * Breast imaging has a false negative rate of 15%. * The patient was notified by mail of the results of this examination. The mammogram was reviewed by a Radiologist and CAD. Continuous Miner- GRZEGORZ GALLOWAY Reading Radiologist- ROBERT GIRON MD [...] compared with prior studies. IMPRESSION- Probably benign (CZO-Iihofuly-5) RECOMMENDATION- Routine screening mammogram in 6 months. * The patient with a palpable abnormality, unexplained by breast imaging, should be managed on clinical basis by the attending physician. * Breast imaging has a false negative rate of 15%. * The patient was notified by mail of the results of this examination. The mammogram was reviewed by a Radiologist and CAD. Continuous Miner- GRZEGORZ GALLOWAY Reading Radiologist- ROBERT GIRON MD Released Date Time- 03/24/07 [address] [facility] Final Result * CT ABD/PELVIS LABORATORY COORDINATOR (09/15/2006 9:15 AM EST) Only the most [...] CT scan of the abdomen and pelvis. Continuous Miner- GRZEGORZ [place]- LIZZIE KEENAN M.D. Released Date Time- 09/15/061711 [...] CT scan of the abdomen and pelvis. Continuous Miner- GRZEGORZ [place]- LIZZIE KEENAN M.D. Released Date Time- 09/15/061711 Ar Vaca MD [facility] [place] Final Result * FL STOMACH-SMALL BOWEL LABORATORY COORDINATOR (09/08/2006 8:05 AM EST) Anatomical Region Laterality [...] upper GI and small bowel follow through. Continuous Miner- GRZEGORZ GARCIA Reading Radiologist- CHAN HILL MD Released Date Time- [...] upper GI and small bowel follow through. Continuous Miner- GRZEGORZ Thomas Radiologist- CHAN HILL MD Released Date Time- 09/08/06 1404 Ar Vaca MD [facility] RAD HISTORI [place] Final Result * XR FLAT AND UPRIGHT [...] gas pattern unremarkable. Impression- Unremarkable abdominal series. Continuous Miner- RAMONITA Thomas Radiologist- HILARY ELENA MD Released Date Time- 08/18/06 1101 Procedure Note Hilary Elena - 09/25/2009 Three view abdominal series, 08/17/06 History- Pain and swelling in right abdomen. 1. Right upper quadrant clips compatible with prior cholecystectomy. Innumerable pelvic calcifications, likely representing phleboliths. 2. No free air. No soft tissue masses. Bowel gas pattern unremarkable. Impression- Unremarkable abdominal series. Continuous MinerMargaux GONZÁLES Reading Radiologist- HILARY ELENA MD Released Date Time- 08/18/06 1101 us Ar Vaca MD [facility] RAD HISTORI DELIA Final Result * MM MAMMO [...] bilateral breast reduction surgery. IMPRESSION- Benign finding (BKN-Qybaawax-3) RECOMMENDATION- Routine screening mammogram in 1 year. Manage patient on clinical basis. Images fail to explain clinical findings. * The patient with a palpable abnormality, unexplained by breast imaging, should be managed on clinical basis by the attending physician. * Breast imaging has a false negative rate of 15%. * The patient was notified by mail of the results of this examination. Continuous Miner- MARY ANN Thomas Radiologist- TIM CARLOS MD Released Date [...] bilateral breast reduction surgery. IMPRESSION- Benign finding (UXI-Lhiraraw-1) RECOMMENDATION- Routine screening mammogram in 1 year. Manage patient on clinical basis. Images fail to explain clinical findings. * The patient with a palpable abnormality, unexplained by breast imaging, should be managed on clinical basis by the attending physician. * Breast imaging has a false negative rate of 15%. * The patient was notified by mail of the results of this examination. Continuous Miner- MARY ANN YADAV Reading Radiologist- TIM CARLOS MD Released Date Time- 03/04/06 1245 us Ar Vaca MD [facility] Final Result * CT CHEST LABORATORY COORDINATOR (03/01/2006 12:48 PM EDT) Anatomical Region Laterality [...] Impression- Unremarkable CT angiogram of the chest. Continuous Miner- GRZEGORZ GARCIA Reading Radiologist- ROBERT GIRON MD Released Date Time- 03/01/06 1835 Procedure Note Gary Robert III - 09/25/[address] angiogram [...] Impression- Unremarkable CT angiogram of the chest. Continuous Miner- GRZEGORZ Thomas Radiologist- ROBERT GIRON MD Released Date Time- 03/01/06 1835 Dung العلي MD [facility] HISTORICAL Final Result * XR CHEST PORTABLE (03/01/2006 11:30 AM EDT) Anatomical Region Laterality Modality Other 03/01/2006 11:3 0 AM EDT Narrative 03/01/2006 12:39 PM EDT 2 Portable chest 03/01/2006 at 11-31 a.m. COMPARISON- None currently available. HISTORY- Chest pain. Lungs are clear. Cardiomediastinal silhouette is within normal limits. IMPRESSION- No acute disease. Continuous Miner- JENNIFER Thomas Radiologist- CHAN HILL MD Released Date Time- 03/01/06 1637 Procedure Note Chan Hill - 09/25/2009 RM 2 Portable chest 03/01/2006 at 11-31 a.m. COMPARISON- None currently available. HISTORY- Chest pain. Lungs are clear. Cardiomediastinal silhouette is within normal limits. IMPRESSION- No acute disease. Continuous Miner- JENNIFER REDMOND Reading Radiologist- CHAN HILL MD Released Date Time- 03/01/06 1637 us Dung العلي MD [facility] HISTOR[facility] Final Result * US LIVER-HEPATIC SONOGRAPHY [...] infiltration of the liver. Status post cholecystectomy. Continuous Miner- KATHYA BENNETT Reading Radiologist- TIM CARLOS MD Released Date Time- 11/19/05 1620 Procedure Note Tim Carlos - 09/25/2009 November [...] infiltration of the liver. Status post cholecystectomy. Continuous Miner- KATHYA Thomas Radiologist- TIM CARLOS MD Released Date Time- 11/19/[address] [facility] Final Result * FL BARIUM SWALLOW (10/13/2005 [...] with tertiary contractions. Small, sliding-type hiatal hernia. Continuous Miner- RAMONITA Thomas Radiologist- ASCENCION COLE MD Released Date Time- 10/13/05 1249 Procedure Note Ascencion Cole W - 09/24/2009 PT IN WAITING AREA Barium swallow 10/13/2005- History- Abdominal pain, 789.0. No filling defects or areas of mucosal destruction in the esophagus. Small, sliding-type hiatal hernia. No spontaneous gastroesophageal reflux. Mild esophageal dysmotility with tertiary contractions. Opinion- Mild esophageal dysmotility with tertiary contractions. Small, sliding-type hiatal hernia. Continuous Miner- RAMONITA Thomas Radiologist- ASCENCION COLE MD Released Date Time- 10/13/05 [address] [facility] Final Result * FL SMALL BOWEL (10/10/2005 8:00 AM EST) Anatomical Region Laterality Modality Other 10/10/2005 8:00 AM EST Narrative 10/10/2005 1:14 PM EST -PT [facility] Small bowel examination, 10/10/2005 Preliminary film of the abdomen shows a moderate amount of stool in the colon which is most prominent in the right hemicolon. Barium traverses the small bowel in 2 hours. No filling defects or areas of mucosal destruction are seen in the small bowel. Terminal ileum normal. Opinion- Normal. Continuous Miner- RAMONITA Thomas Radiologist- ASCENCION COLE MD Released Date Time- 10/10/05 1424 Procedure Note Ascencion Cole W - 09/24/2009 -PT [facility] Small bowel examination, 10/10/2005 Preliminary film of the abdomen shows a moderate amount of stool in the colon which is most prominent in the right hemicolon. Barium traverses the small bowel in 2 hours. No filling defects or areas of mucosal destruction are seen in the small bowel. Terminal ileum normal. Opinion- Normal. Continuous Miner- RAMONITA Thomas Radiologist- ASCENCION COLE MD Released Date Time- 10/10/05 1424 Ar Vaca MD [facility]I [facility] Final Result * XR ANKLE (03/31/2005 10:34 AM EDT) Anatomical Region Laterality Modality Other 03/31/2005 10:3 4 AM EDT Narrative 04/02/2005 10:31 AM EDT Right ankle, 03/31/05 Indication- Pain. Findings- Three views of the right ankle demonstrate a plantar calcaneal spur. Degenerative changes tip of the right fibula. No fractures, dislocations, joint effusion, or significant soft tissue swelling. Continuous Miner- RAMONITA Thomas Radiologist- DISHA CORDERO M.D. Released Date Time- 04/02/05 103 Procedure Note Disha Cordero - 09/24/2009 Right ankle, 03/31/05 Indication- Pain. Findings- Three views of the right ankle demonstrate a plantar calcaneal spur. Degenerative changes tip of the right fibula. No fractures, dislocations, joint effusion, or significant soft tissue swelling. Continuous Miner- RAMONITA Limon- DISHA CORDERO M.D. Released Date Time- 04/02/05 103 Ar Vaca MD [facility] RAD [facility]I [place] Final Result * MM MAMMO SCREEN W/CAD [...] studies. IMPRESSION- No radiographic evidence of malignancy ([id number]-Toftjsqf-9) RECOMMENDATION- Routine screening mammogram in 1 year. * The patient with a palpable abnormality, unexplained by breast imaging, should be managed on clinical basis by the attending physician. * Breast imaging has a false negative rate of 15%. * The patient was notified by mail of the results of this examination. The mammogram was reviewed by a Radiologist and CAD. Continuous Miner- MARY ANN YADAV Reading Radiologist- LIZZIE KEENAN M.D. Released Date Time- 02/01/05 1706 Procedure Note Maulik Keenan - 09/24/2009 Procedure-MM MAMMO SCREEN W/CAD PANEL. Screening CAD Mammogram Bilateral CC and MLO view(s) were taken. There are scattered fibroglandular densities. Benign skin calcifications. No significant changes when compared with prior studies. IMPRESSION- No radiographic evidence of malignancy ([id number]-Zynwpsxr-5) RECOMMENDATION- Routine screening mammogram in 1 year. * The patient with a palpable abnormality, unexplained by breast imaging, should be managed on clinical basis by the attending physician. * Breast imaging has a false negative rate of 15%. * The patient was notified by mail of the results of this examination. The mammogram was reviewed by a Radiologist and CAD. Continuous Miner- MARY ANN Thomas Radiologist- LIZZIE KEENAN M.D. Released Date Time- 02/01/05 1706 Ar [facility] Final Result Visit Diagnoses Diagnosis Start [...] Obesity, unspecified 01/28/2013 ZENG (headache) Headache 01/28/2013 WILLIE (generalized anxiety disorder) Generalized anxiety disorder 02/07/2013 [...] maintaining sleep 02/07/2016 Diabetes type 2, controlled ([facility]) Type II or unspecified type diabetes mellitus without mention of complication, not stated as uncontrolled 02/07/2016 EIC (epidermal inclusion cyst) Sebaceous cyst 02/07/2016 Right knee pain Pain in joint, lower leg 02/07/2016 Dysuria 02/07/2016 Diabetes type 2, controlled ([facility]) Type II or unspecified type diabetes mellitus [...] stage 2 chronic kidney disease, unspecified whether retirement insulin use (HCC) 08/05/2018 Acute non-recurrent sinusitis [...] stage 2 chronic kidney disease, unspecified whether long term care administrator insulin use (HCC) 08/05/2018 Obesity, Class III, [...] with body mass index of 40.0-49.9 (HCC) 09/18/2020 UTI (urinary tract infection), uncomplicated Urinary [...] obesity with body mass index of 40.0-49.9 ([facility]) 04/17/2022 Need for shingles vaccine Need for [...] obesity with body mass index of 40.0-49.9 ([facility]) 08/24/2022 Prediabetes Other abnormal glucose 08/24/2022 Dizziness [...] obesity with body mass index of 40.0-49.9 ([facility]) 08/19/2023 Prediabetes Other abnormal glucose 08/19/2023 Medicare annual wellness visit, subsequent Routine general medical examination at a health care facility 08/19/2023 Urinary frequency 08/19/2023 Major depressive disorder, single episode, in partial remission Major depressive disorder, single episode, in partial or unspecified remission 08/19/2023 Chronic kidney disease, stage 3a ([facility]) 08/19/2023 Gastroesophageal reflux disease with esophagitis without [...] obesity with body mass index of 40.0-49.9 ([facility]) 11/30/2024 Leukocytosis, unspecified type 12/01/2024 Rash Rash and other nonspecific skin eruption 12/06/2024 Prediabetes Other abnormal glucose 12/07/2024 Systemic lupus erythematosus, unspecified SLE type, unspecified organ involvement status ([facility]) 12/19/2024 Dermatitis Contact dermatitis and other eczema, due to unspecified cause 12/19/2024 Acute vaginitis Vaginitis and vulvovaginitis, unspecified 12/21/2024 Acute bacterial sinusitis Acute sinusitis, unspecified 12/21/2024 Nausea Nausea alone 12/21/2024 Rash Rash and other nonspecific skin eruption 01/01/2025 Dizziness Dizziness and giddiness 01/25/2025 Unspecified essential hypertension 11/13/2013 Type II or [...] EDT) No Sandy Chen LPN Care Teams Technical Healthcare Consultant Relationship Specialty Start Date End Date Ar Vaca MD [address] [place] [address] PCP - General Family Medicine 04/28/22 Kory Rodriguez MD [address] [facility] [address] [place] [address] Consulting Physician Internal Medicine-Nephrology 10/03/20
--- OUTSIDE RECORDS SUMMARY | 2025-01-29 13:58 | XMS_ITS | Encounter Summary ---
Author Organization [facility] [place] [address] [place] [address] Care Team Providers Care Health And Safety Director Name Role Phone Kory Rodriguez MD Unavailable [phone] Ar Vaca MD Primary Care Provider + Encounter Details Date Type Department Care Team (Latest Contact Info) Description 12/01/2024 Results Follow-Up [facility] [address] [place] [address] Ar Vaca MD [address] [place] [address] HEMOGLOBIN A1C, COMPREHENSIVE METABOLIC PANEL, [...] Date Recorded PHQ-2 Total Score 0 11/02/2024 [facility] [place] [facility] Occupat ional Health - Occupational Stress [...] documented as of this encounter Care Teams Health And Safety Director Relationship Specialty Start Date End Date Ar Vaca MD [address] [place] [address] PCP - General Family Medicine 04/28/22 Kory Rodriguez MD [address] [facility] [address] [place] [address] Consulting Physician Internal Medicine-Nephrology 10/03/20 documented as of this encounter
--- OUTSIDE RECORDS SUMMARY | 2025-01-29 13:58 | XMS_ITS | Clinical Summary ---
Author Organization Healthcare Address [address] [place] [address] Care Team Providers Care Rubber Tire Curer Name Role Phone Pcp, No Primary Care Provider Unavailabl e Cassy Vuong DMD Unavailable [phone] Caty Gonzalez Unavailable Unavailable Allergies Active [...] [facility]-Depression Screening 1955 [facility]-/Child/Adol SDOH Screenings 1955 FAK-APAOP-36 Vaccine (#1) 12/09/1960 [facility]- SDOH Screenings 12/09/1973 [...] 04/06/2018, 06/20/2014 Dental Oral Exam 11/24/2023 05/25/2023 [facility]-Medicare Annual Wellness (AWV) 08/19/2024 08/19/2023 [facility]-Influenza Vaccine (#1) 03/19/202505/11, 04/15/2023, 04/22/2020, Additional history exists Dental X-Ray: Full Mouth 08/06/2026 08/05/2023 [facility]-Hepatitis C Screening Completed 03/02/2017 [facility]-Zoster Vaccines Completed 05/14/2023, HPV Vaccines Aged Out No longer eligi [...] Most Recently Relevant to Health Maintenance Insurance [employer] Member Subscriber Plan / Payer (Ef fective 2021-Present) Name:Karoline Huynh Relation to Subscriber:Self Name:Karoline Huynh Payer ID:[id number] (NAIC) Type:Not on file Address: [place] [id number] Care Teams Rubber Tire Curer Relationship Specialty Start Date End Date Pcp, No [address] [place] [address] PCP - General Family Medicine 05/25/23 Cassy Vuong, ZOHREH [address] [facility] [address] [place] [id number] Dentist Dental Union Organizer 05/25/23 Caty Gonzalez Dental Student Dental Union Organizer 09/02/23
--- OUTSIDE RECORDS SUMMARY | 2025-01-29 13:58 | XMS_ITS | Encounter Summary ---
Author Organization [place] [address] Care Team Providers Care Campground Caretaker Name Role Phone Kory Rodriguez MD Unavailable [phone] Ar Vaca MD Primary Care Provider + Reason for Visit * Reason Onset Date Comments Relaying Information 11/28/2024 regarding p t's pharmacy Encounter Details Date Type Department Care Team (Late st Contact Info) Description 11/28/2024 Telephone [facility] [address] [place] [address] Ar Vaca MD [address] [place] [address] Relaying Information (regarding pt's pharmacy) Social History Tobacco Use Types Packs/Day Years Used Date Smoking Tobacco: Never Smokeless Tobacco: Never Alcohol Use Standard Drinks/Week Comments No 0 (1 standard drink = 0.6 oz pur e alcohol) Overall Financial Resource Strain ([facility]) Answe r Date Recorded How hard is it for you to pa y for the very basics like food, housing, medical care, and heating? Not very hard 08/17/2024 PHQ-2 Answer Date Recorded PHQ-2 Total Score 0 11/02/2024 [facility] [place] of Occupat ional Health - Occupational Stress [...] Information Relaying Information Who is Calling: Pharmacy [facility] and patient (Include pharmacy and caller's name) [...] documented as of this encounter Care Teams Campground Caretaker Relationship Specialty Start Date End Date Ar Vaca MD [address] [place] [address] PCP - General Family Medicine 04/28/22 Kory Rodriguez MD [address] [facility] [address] [place] [address] Consulting Physician Internal Medicine-Nephrology 10/03/20 documented as of this encounter
--- NOTE | 2025-01-29 14:33 | EXP.PAIN.SOA ---
[facility] Disclaimer: The information contained in this section may have been updated after the patient was seen, as this information can be updated by other users. Medical History Sleep apnea Hypothyroidism Fibromyalgia High blood pressure Gout GERD (gastroesophageal reflux disease) Surgical History History of carpal tunnel repair Hx of tonsillectomy H/O total hysterectomy Family History Other Cancer Diabetes Heart attack Hypertension No significant family history Stroke Social History Smoking Status: Never smoker second hand exposure: No alcohol intake: never substance use type: denies use current occupational status: other Travel in the last 8 weeks?: None household members: spouse housing: house caffeine: Yes PM Subjective & Objective Subjective Subjective:: Patient is a pleasant 69-year-old female who presents today for medication refill and follow-up. She rates her pain today 5 out of 10. She denies any new trauma or injury. Patient is currently managed with Percocet 7.5 mg 4 times a day. She denies any side effects or changes to her pharmacy. Patient does have questions regarding if there are any close or [facility] pain management offices. She states that she was told that any visits here at [facility] would be an automatic $45 minimum. Patient states that she is trying to be very mindful of the added cost. Her Shabbir has been reviewed and is appropriate. Review of Systems: General: No recent weight changes, no fever, no sleep disturbances Respiratory: No cough, no shortness of air, no recurring pulmonary infections Cardiovascular/peripheral vascular: No chest pain, no palpitations, no edema, no shortness of breath Gastrointestinal: No new onset incontinence, normal bowel movements reported Genitourinary: No new onset incontinence Musculoskeletal: Chronic back pain Psychiatric: [Normal mood/affect] Neurological: [Denies weakness in extremities], [denies balance issues] Pain at rest (0-10 scale): 5 Objective Objective:: Physical Exam: General: Alert and oriented x3, no acute distress, pleasant and cooperative Lungs: Respirations even and unlabored, symmetrical chest expansion Eyes: PERRL Musculoskeletal: Flexion and extension of lumbar [spine] somewhat guarded secondary to pain, [antalgic gait noted] Neurological: Speech clear, no gross sensory deficit Has patient had previous pain injection?: No Conservative treatment options previously tried: Prescription medications Length of treatment: Longer than 12 weeks Meds Home Medications and Allergies Home Medications ?Medication ?Instructions ?Recorded ?Confirmed ?Type allopurinol 100 mg tablet 100 mg PO BID gout 90 days ##180 10/05/17 12/28/24 History levothyroxine 75 mcg tablet 1 tab PO DAILY thyroid 90 days ##90 10/05/17 12/28/24 History promethazine 25 mg tablet 25 mg PO NEEDED PRN Nausea 45 10/05/17 12/28/24 History days ##180 propranolol 20 mg tablet 20 mg PO DAILY bp 90 days ##180 10/05/17 12/28/24 History aspirin 81 mg tablet,delayed 81 mg PO DAILY unknown 12/12/19 12/28/24 History release biotin 5,000 mcg disintegrating 5,000 mcg PO DAILY Supplement 12/12/19 12/28/24 History tablet fluticasone propionate 50 2 spray intranasal DAILY allergies 06/06/20 12/28/24 Rx mcg/actuation nasal 30 days #16 mL spray,suspension lisinopril 10 mg tablet 10 mg PO DAILY BLOOD PRESSURE 05/26/23 12/28/24 History semaglutide 14 mg tablet (Rybelsus) 14 mg PO DAILY 05/26/23 12/28/24 History cyclobenzaprine 10 mg tablet 10 mg PO TID muscle pain #90 tabs 08/20/23 12/28/24 Rx hydrocortisone 0.5 % topical cream 1 applic topical BID PRN skin 12/28/24 Rx irritation #28.4 grams oxycodone-acetaminophen 7.5 mg-325 1 tab PO QID #120 tabs 12/28/24 Rx mg tablet (Percocet) New Prescriptions to Start Prescriptions: Allergies Allergy/AdvReac Type Severity Reaction Status Date / Time acetaminophen (From Allergy Unknown NA-NAUSEA/V Verified 10/28/23 13:03 TYLENOL-CODEINE #3) OMITING codeine (From Allergy Unknown NA-NAUSEA/V Verified 10/28/23 13:03 TYLENOL-CODEINE #3) OMITING erythromycin base Allergy Unknown NA-NAUSEA/V Verified 10/28/23 13:03 (ERYTHROMYCIN BASE) OMITING methadone (METHADONE) Allergy Unknown UNKNOWN Verified 10/28/23 13:03 morphine (MORPHINE) Allergy Unknown UNKNOWN Verified 10/28/23 13:03 Penicillins (PENICILLINS) Allergy Unknown NA-NAUSEA/V Verified 10/28/23 13:03 OMITING Sulfa (Sulfonamide Allergy Unknown NA-NAUSEA/V Verified 10/28/23 13:03 Antibiotics) (SULFA OMITING (SULFONAMIDE ANTIBIOTICS)) Assessment and Plan *Assessment and plan (1) Lumbar radiculopathy: Status: Acute Category: Medical Code(s): M54.16 - Radiculopathy, lumbar region (2) Chronic pain of both knees: Status: Acute Category: Medical Code(s): M25.561 - Pain in right knee; M25.562 - Pain in left knee; G89.29 - Other chronic pain (3) Cervical radiculopathy: Status: Acute Category: Medical Code(s): M54.12 - Radiculopathy, cervical region (4) Degenerative disc disease, lumbar: Status: Acute Category: Medical Code(s): M51.369 - Other intervertebral disc degeneration, lumbar region without mention of lumbar back pain or lower extremity pain (5) Degenerative disc disease, cervical: Status: Acute Category: Medical Code(s): M50.30 - Other cervical disc degeneration, unspecified cervical region Plan I did discuss with the patient that we do have the [place] office in the [place] office. Patient states that she is still trying to make sure that the amounts are correct for how much she is charged through her insurance. We will continue to monitor this. Patient will be refilled on her Percocet with a 1 month supply of this medication. Patient will return to clinic in 1 month for reevaluation of symptoms and plan of care. Risks and benefits of the medication have been explained in detail to the patient. The patient does understand the risk of dependence on the medication when given over a prolonged period. Patient has been advised of risks of oversedation with the prescribed medication. Narcan has been offered to the paitent in the event of oversedation. Patient has been advised that a family member should also be educated regarding administration of Narcan. The patient has been advised to consult with his/her primary care provider and pharmacist regarding drug-drug interaction of medications currently prescribed. Patient has been prescribed a controlled substance after being counseled on the medication, medication safety, and possible side effects. Opioid contract was reviewed and signed by the patient, and that they have agreed to all of the terms set forth by our compliance program. A UDS is needed to verify patient's compliance with our office pain contract. This is ordered based off specific treatments related to chronic pain with the potential to abuse certain medications. Patient has been instructed to contact the clinic with any concerns before the next appointment. Dr. Valderrama has reviewed this note and agrees with this plan of care. This note was dictated using voice recognition software and make contain errors or omissions.
[2025-01-29 14:46] VITALS: BP 117/67; PULSE 61; RESP 14; O2SAT 100; BMI 41.5
== END 2025-01-29 23:59 | disposition home or self-care (01) ==
PROVIDERS: PCP Family Medicine; Visit Provider Nurse Practitioner Family
DX: M54.16 Radiculopathy, lumbar region (principal); M51.360 Other intervertebral disc degeneration, lumbar region with discogenic back pain only; M25.561 Pain in right knee; M25.562 Pain in left knee; G89.29 Other chronic pain; M50.30 Other cervical disc degeneration, unspecified cervical region; Z79.891 Long term (current) use of opiate analgesic
CPT/HCPCS: 99212; G0463

== ENCOUNTER 2025-03-05 14:13 | Outpatient (POV) | payer MEDICARE, SELFPAY ==
--- OUTSIDE RECORDS SUMMARY | 2019-01-27 16:00 | XMS_ITS | Encounter Summary ---
Author Organization [place] [address] Care Team Providers Care Shampoo Person Name Role Phone Clemente Bass DO, Viral Primary Care Provider [phone] Encounter Details Date Type Department Care Team (Latest Contact Info) Description 01/27/2019 4:00 PM EDT Hospital Encounter [facility] [address] [place] [address] Left without seen Social History [...] Date Recorded PHQ-2 Total Score 0 11/02/2024 [facility] - Occupational Stress Questionnaire Answer Date Recorded [...] documented as of this encounter Care Teams Shampoo Person Relationship Specialty Start Date End Date Jose Cornejo DO [address] [place] [phone] PCP - General Family Medicine 06/13/13 04/27/22 documented as of this encounter
--- OUTSIDE RECORDS SUMMARY | 2025-03-05 14:22 | XMS_ITS | Clinical Summary ---
Author Organization [facility] are Address [address] [id number] Phone Care Team Providers Care Olive Picker Name Role Phone Mallory Cortez RN Unavailable Conditions or Problems Problem Name Problem Code Onset Date Status Entry Date Provider Comment Standard Description Annotate Hx of hysterectomy [id number] (SNOMED CT) Active Mallory Cortez RN Hysterectomy Medications Medication Instructions Start Date Stop Date Generic Name NDC Provider TRAZODONE HCL 50 MG TABS Take on tablet by mouth nightly TRAZODONE HCL [id number] Mallory Cortez RN PROMETHAZINE HCL 25 MG TABS Take 2 tablets by mouth every 12 hours as needed for nausea PROMETHAZINE HCL 25420376527 Mallory Cortez RN OXYCODONE-ACETAM INOPHEN 5-325 MG TABS Take one by mouth eery 6 hrs as needed for pain OXYCODONE-ACETAM INOPHEN [id number] Mallory Cortez RN OMEPRAZOLE 40 MG CPDR Take 1 capsule by mouth daily OMEPRAZOLE 55875753301 Mallory Cortez RN NITROGLYCERIN 0.[address] 1 tablet under the tongue every 5 minutes as needed for chest pain NITROGLYCERIN 75729565877 Mallory Cortez RN WOMENS MULTIVITAMIN TABS One by mouth daily MULTIPLE VITAMINS-MINERAL S 78429304040 Mallory Cortez RN MELOXICAM 15 MG TABS Take one tablet by mouth daily MELOXICAM 39001618004 Mallory Cortez RN LISINOPRIL-HYDRO CHLOROTHIAZIDE 20-25 MG TABS Take 0.5 tablets by mouth daily LISINOPRIL-HYDRO CHLOROTHIAZIDE 87293577799 Mallory Cortez RN LEVOTHYROXINE SODIUM 75 MCG TABS Take 1 tablet by mouth daily LEVOTHYROXINE SODIUM 89440609498 Mallory Cotrez RN FLUTICASONE PROPIONATE 50 MCG/ACT SUSP FLUTICASONE PROPIONATE 87018991250 Mallory Cortez RN LOTRISONE 1-0.05 % EXTERNAL CREAM Apply topically 2 times daily CLOTRIMAZOLE-BET AMETHASONE 71672879987 Mallory Cortez RN BIOTIN 5000 MCG TABS Take 1 tablet by mouth daily BIOTIN 63759851579 Mallory Cortez RN ATORVASTATIN CALCIUM 20 MG TABS Take 1 tablet by mouth daily ATORVASTATIN CALCIUM 51759216768 Mallory Cortez RN ASPIRIN LOW STRENGTH 81 MG CHEW Take 1 tablet by mouth daily ASPIRIN 11367526971 Mallory Cortez RN ALLOPURINOL 100 MG TABS Take 1 tablet by mouth 2 times daily ALLOPURINOL 40162549894 Mallory Cortez RN Medications Administered No information available. Allergies, Adverse Reactions, Alerts No information available. Results No information available. Plan of Care No information available. Procedures No information available. Vital Signs No information available. Immunizations No information available. Advance Directives No information available.
--- OUTSIDE RECORDS SUMMARY | 2025-03-05 14:23 | XMS_ITS | Clinical Summary ---
Author Organization [facility] Address [address] [place] [address] Care Team Providers Care Medieval English Literature Professor Name Role Phone Unavailable Primary Care Provider Unavailabl e Source Comments This information has been disclosed to you from confidential records protectedfrom disclosure by state law. You shall make no further disclosure of thisinformation without the specific, written, and informed release of theindividual to whom it pertains, or as otherwise permitted by law. A generalauthorization for the release of medical or other information is not sufficientfor the purposes of therelease of HIV test results or diagnoses. [id number] Health Encounters Date Type Department Care Team Description 02/14/2025 Orders Only MEDICAL SCIENCE [address] [address] Gavi Tarango, CHALO Neoplasm of uncertain behavior of skin (Primary Dx) from Last 3 Months Social History Tobacco Use Types Packs/Day Years Used Date Smoking Tobacco: Never Assessed Comments Unknown Sex and Gender Information Value Date Recorded Sex Assigned at Not on file Legal Sex Female 5:49 PM EST Gender Identity Not on file Sexual Orientation Not on file Plan of Treatment Not on file Procedures Procedure Name Priority Date/Time Associated Diagnosis Comments SKIN / NAIL BIOPSY Routine 02/13/2025 12 :00 AM EDT Neoplasm of uncertain behavior of skin from Last 3 Months Results * Skin / nail biopsy (02/13/2025 12:00 AM EDT) 02/13/2025 02/14/2025 Narrative [facility] - 02/13/2025 12:00 AM EDT CASE: [id number] PATIENT: KAROLINE WILLIAM Clinical Impression: R/O BCC Site(s): R cheek CPT Code(s): 04410 X 1 Diagnosis: Steatocystoma and dermal nevus. Microscopic Exam: There is a steatocystoma as well as a dermal nevus. Gross Description: A specimen of skin was received measurin x 4 x 1 mm Final Diagnosis performed by YOBANI CERNA MD Electronically signed 02/15/2025 11:22:27 AM The Pathologist signing this report is located at [facility], [address] [place] [address], [id number], , CLIA ID: [id number] [facility] DERM PROCEDURE ORDERABLES Kaur l Result [facility] from Last 3 Months Insurance [employer]
--- OUTSIDE RECORDS SUMMARY | 2025-03-05 14:23 | XMS_ITS | Encounter Summary ---
Author Organization [facility] Address [address] [place] [address] Care Team Providers Care Pharmacy District Manager Name Role Phone Unavailable Primary Care Provider Unavailabl e Source Comments This information has been disclosed to you from confidential records protectfrom disclosure by state law. You shall make no further disclosure of thisinformation without the specific, written, and informed release of theindividual to whom it pertains, or as otherwise permitted by law. A generalauthorization for the release of medical or other information is not sufficientfor the purposes of the release of HIV test results or diagnoses. [id number] Health Encounter Details Date Type Department Care Team (Late st Contact Info) Description 02/14/2025 Orders Only MEDICAL SCIENCE BUILDING [address] [place] [address] Gavi Tarango, [facility] [address] [address] [phone] Neoplasm of uncertain behavior of skin (Primary Dx) Social History Tobacco Use Types Packs/Day Years Used Date Smoking Tobacco: Never Assessed Comments Unknown Sex and Gender Information Value Date Recorded Sex Assigned at Not on file Legal Sex Female 5:49 PM EST Gender Identity Not on file Sexual Orientation Not on file documented as of this encounter Plan of Treatment Not on file documented as of this encounter Procedures Procedure Name Priority Date/Time Associated Diagnosis Comments SKIN / NAIL BIOPSY Routine 02/13/2025 12 :00 AM EDT Neoplasm of uncertain behavior of skin documented in this encounter Results * Skin / nail biopsy (02/13/2025 12:00 AM EDT) 02/13/2025 02/14/2025 Narrative [facility] - 02/13/2025 12:00 AM EDT CASE: [id number] PATIENT: KAROLINE WILLIAM Clinical Impression: R/O BCC Site(s): R cheek CPT Code(s): 78289 X 1 Diagnosis: Steatocystoma and dermal nevus. Microscopic Exam: There is a steatocystoma as well as a dermal nevus. Gross Description: A specimen of skin was received measurin x 4 x 1 mm Final Diagnosis performed by YOBANI CERNA MD Electronically signed 02/15/2025 11:22:27 AM The Pathologist signing this report is located at [facility], [address] [place] [address], [address], , CLIA ID: [id number] [facility] DERM PROCEDURE ORDERABLES Kaur zhong Result [facility] documented in this encounter Visit Diagnoses Diagnosis Neoplasm of uncertain behavior of skin- Primary documented in this encounter
--- OUTSIDE RECORDS SUMMARY | 2025-03-05 14:23 | XMS_ITS | Encounter Summary ---
Author Organization [facility] [place] [address] [place] [address] Care Team Providers Care Oracle Financials Developer Name Role Phone Kory Rodriguez MD Unavailable [phone] Ar Vaca MD Primary Care Provider + Reason for Visit * Reason Onset Date Comments Refill 01/25/2025 Encounter Details Date Type Department Care Team (Late st Contact Info) Description 01/25/2025 [address]phone [facility] [address] [place] [address] Ar Vaca MD [address] [place] [address] Refill Social History Tobacco Use Types [...] Recorded PHQ-2 Total Score 0 11/02/2024 [facility] [place] of Occupat ional Health - Occupational Stress [...] prescribing provider: Nothing scheduled. Pharmacy & Location: [facility]/pharmacy #[id number] [place] [address] - [address] [place] [address] - [phone] [place] [address] TONY #: [id number] Return Method of Communication: Phone Call Additional [...] documented as of this encounter Care Teams Oracle Financials Developer Relationship Specialty Start Date End Date Ar Vaca MD [address] [place] [phone] PCP - General Family Medicine 04/28/22 Kory Rodriguez MD [address] [facility] [address] [place] [phone] Consulting Physician Internal Medicine-Nephrology 10/03/20 documented as of this encounter
--- OUTSIDE RECORDS SUMMARY | 2025-03-05 14:23 | XMS_ITS | Encounter Summary ---
Author Organization [facility] [place] [address] Care Team Providers Care Bottom Finisher Name Role Phone Kory Rodrgiuez MD Unavailable [phone] Ar Vaca MD Primary Care Provider + Reason for Visit * Reason Onset Date Comments Symptoms (Only Use If Pt Pus hes Back On Scheduling A Visit) 12/21/2024 green infection coming out o f sinuses Encounter Details Date Type Department Care Team (Late st Contact Info) Description 12/21/2024 Telephone [facility] [address] [place] [address] Ar Vaca MD [address] [place] [phone] Symptoms (Only Use If Pt Pushes [...] Date Recorded PHQ-2 Total Score 0 11/02/2024 [facility] [place] of Occupat ional Health - Occupational Stress [...] for yeast infection from abx Pharmacy & Location:[facility]/pharmacy #[id number] [address] [place] [address] [address] [facility] - [phone] Return Method of Communication: Phone Call Was [...] documented as of this encounter Care Teams Bottom Finisher Relationship Specialty Start Date End Date Ar Vaca MD [address] [place] [address] PCP - General Family Medicine 04/28/22 Kory Rodriguez MD [address] [place] [address] Consulting Physician Internal Medicine-Nephrology 10/03/20 documented as of this encounter
--- OUTSIDE RECORDS SUMMARY | 2025-03-05 14:23 | XMS_ITS | Encounter Summary ---
Author Organization [place] [address] Care Team Providers Care Dependency Counselor Name Role Phone Kory Rodriguez MD Unavailable Ar Vaca MD Primary Care Provider + Reason for Visit * Reason Comments Medication Refill Encounter Details Date Type Department Care Team (Late st Contact Info) Description 01/01/2025 Refill [facility] [address] [place] [address] Karen Gonzalez MD [address] [place] [phone] Medication Refill Social History Tobacco Use Types Packs/Day Years Used Date Smoking Tobacco: Never Smokeless Tobacco: Never Alcohol Use Standard Drinks/Week Comments No 0 (1 standard drink = 0.6 oz pur e alcohol) Overall Financial Resource Strain ([facility]) Answe r Date Recorded How hard is it for you to pa y for the very basics like food, housing, medical care, and heating? Not very hard 08/17/2024 PHQ-2 Answer Date Recorded PHQ-2 Total Score 0 11/02/2024 [facility] - Occupational Stress Questionnaire Answer Date [...] documented as of this encounter Care Teams Dependency Counselor Relationship Specialty Start Date End Date Ar Vaca MD [address] [place] [address] PCP - General Family Medicine 04/28/22 Kory Rodriguez MD [address] [place] [phone] Consulting Physician Internal Medicine-Nephrology 10/03/20 documented as of this encounter
[2025-03-05 14:25] VITALS: BP 148/94; PULSE 77; RESP 20; O2SAT 95; BMI 41.9
--- OUTSIDE RECORDS SUMMARY | 2025-03-05 14:25 | XMS_ITS | Continuity of Care Document ---
Author Organization 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 Name Role Phone Kory Rodriguez MD Unavailable [phone] Ar Vaca MD Primary Care Provider + Encounters Date Type Department Care Team Description 5 Refill SEP [address] [address] Ar Vaca MD Medication Refill 5 Telephone SE[facility] [address] [address] Ar Vaca MD Refill 5 Refill SEP [address] [address] Karen Gonzalez MD Medication Refill [facility] [address] [address] Darling Guerra RN Care Transition; CM- Telephonic Outreach; CM-Medication Assistance [address] [address] Ar Vaca MD Symptoms (Only Use If Pt Pushes Back On Scheduling A Visit) (green infection coming out of sinuses) 5 Refill [facility] [place] [address] Ar Vaca MD Medication Refill 5 Patient Outreach [facility] [address] [place] [address] Gayle Luther RN CM- Telephonic Outreach 5 3:00 PM EDT Office Visit [facility] [address] [place], [place] [address] Ar Vaca MD Dermatitis (Primary Dx); Systemic lupus erythematosus, unspecified SLE type, unspecified organ involvement status (HCC) 5 12:00 PM EDT Clinical Support [facility] [address] [place] [address] Darling Guerra RN Prediabetes (Primary Dx) 5 1:30 PM EDT Office Visit [facility] [address] [place] [address] Karen Gonzalez MD Rash (Primary Dx) 5 Telephone [facility] [address], [place] [address] Ar Vaca MD Prior Authorization (Ozempic) 5 Results Follow-Up [facility] [address] [place] [address] Ar Vaca MD URINE CULTURE (NO STAIN) 5 Results Follow-Up [facility] [address] [place] [address] Ar Vaca MD HEMOGLOBIN A1C, COMPREHENSIVE METABOLIC PANEL, CBC WITH DIFF, Additional followed-up results: 2 5 1:32 PM EDT - 5 11:59 PM EDT Hospital Encounter [facility] [address], [place] [address] Prediabetes; Medicare annual wellness visit, subsequent; Hypertension; Acquired hypothyroidism; Elevated uric acid in blood Discharge Disposition: Home or Self Care 5 1:20 PM EDT Office Visit [facility] [address] [place] [address] Ar Vaca MD Thrush (Primary Dx); Urinary frequency; Acute recurrent cystitis; Morbid obesity with body mass index of 40.0-49.9 ([facility]) 5 Orders Only [facility] [place] [place] [address] Monica Ibrahim MA Muscle pain; Erosive osteoarthritis of both hands; Gastroesophageal reflux disease with esophagitis without hemorrhage; Hypertension 5 Telephone [facility] [facility] [address] [place] [address] Ar Vaca MD Relaying Information (regarding pt's pharmacy) 5 Telephone [facility] [address] [place] [address] Ar Vaca MD Refill (Propranolol ); Medication Management (Call pharmacy on refills from 11/02 they did not receive per patient ) 5 Refill [facility] [place] [facility] [address] [place] [address] Ar Vaca MD Medication Refill 5 3:20 PM EDT Office Visit [facility] [facility] [address] [facility] [place] [address] Ar Vaca MD Medicare annual wellness visit, subsequent (Primary Dx); Elevated uric acid in blood; Muscle pain; Acquired hypothyroidism; Hypertension; Erosive osteoarthritis of both hands; Nausea; Gastroesophageal reflux disease with esophagitis without hemorrhage; Prediabetes; Arthritis of right temporomandibular joint; Primary osteoarthritis of left knee 5 Telephone [facility] [address] [place] [address] Ar Vaca MD Medication Refill ( Disp Refills Start End /omeprazole (PRILOSEC) 40 mg Oral Capsule, Delayed Release(E.C.) 90 Capsule 0 06/22/2024 - /Sig - Route: Take 1 Capsule by mouth daily. - Oral //) 5 Telephone [facility] [place] [facility] [address] Ar Vaca MD Health Maintenance 5 Telephone [facility] [place] [address] [place] [address] Ar Vaca MD Medication Management (RYBELSUS ) 5 Patient Outreach [facility] [place] [address] [place] [address] Gayle Luther RN CM- Telephonic Outreach; CM-Medication Assistance (Rybelsus) 5 Patient Outreach [facility] [address] [place] [address] Ar Vaca MD Central Patient Navigator Outreach (AWV questionnaire) 5 Telephone [facility] [facility] [address] [place] [address] [place] [address] Ar Vaca MD Results (Labs 08/15/24) 5 Telephone [facility] [place] [facility] [place] [address] Ar Vaca MD Health Maintenance 5 Telephone [facility] [address] [place] [address] Ar Vaca MD Medication Management (FYI Change in Pharmacy /2 medications ) 5 2:40 PM EST Clinical Support [facility] [address] [place] [address] Darling Guerra RN Hyperglycemia (Primary Dx) 5 2:35 PM EST - 5 11:59 PM EST Hospital Encounter [facility] [address] [place] [address] Acquired hypothyroidism; Hypertension Discharge Disposition: Home or Self Care 5 1:40 PM EST Office Visit [place] [address] [facility] [place] [address] Ar Vaca MD Hypertension (Primary Dx); Erosive osteoarthritis of both hands; Nausea; Morbid obesity with body mass index of 40.0-49.9 (HCC); Acquired hypothyroidism; Need for vaccine for Td (tetanus-diphtheria); Hyperglycemia 4 Telephone [facility] [address] [place] [address] Ar Vaca MD Refill (4 meds) 4 4:20 PM EST Telemedicine [facility] [place] [facility] [place] [address] Ar Vaca MD Acute bacterial sinusitis (Primary Dx); Antibiotic-induced yeast infection 4 Telephone [facility] [place] [facility] [place] [address] Ar Vaca MD Other (please either change appt today to alt vv or call in rx) 4 Patient Outreach [facility] [place] [facility] [place] [address] Darling Guerra RN Care Transition; CM- Telephonic Outreach; CM-Medication Assistance 4 1:37 PM EDT - 4 11:59 PM EDT Hospital Encounter [facility] [address] [place] [address] Hypertriglyceridemia; Arthritis; Frequent falls; Fatigue, unspecified type Discharge Disposition: Home or Self Care 4 1:50 PM EDT Office Visit [place] [facility] [place] [address] Ar Vaca MD Frequent falls (Primary Dx); Arthritis; Fatigue, unspecified type 4 Telephone [facility] [place] [facility] [place] [address] Ar Vaca MD Prior Authorization 4 Telephone [facility] [place] [address] [facility] [place] [address] Ar Vaca MD Refill (3 med refills) 4 Telephone [facility] [employer] [address] [place] [address] Ar Vaca MD Results (ERR ) 4 Telephone [facility] [facility] [address] [facility] [place] [address] Senait Martínez [facility] Health Maintenance; Follow-up (mammogram) 4 Refill [facility] [facility] [address] [facility] [place] [address] Ar Vaca MD Medication Refill 4 Refill [facility] [facility] [address] [facility] [place] [address] Ar Vaca MD Medication Refill 4 Telephone [facility] [address] [facility] [place] [address] Vivien Keating [facility] Prior Authorization 4 10:50 AM EDT Office Visit [facility] [facility] [address] [facility] [place] [address] Ar Vaca MD Hypertriglyceridemia (Primary Dx); Constipation, chronic; Hypernatremia; CKD stage G2/A2, GFR 60-89 and albumin creatinine ratio 30-299 mg/g; Acquired hypothyroidism; Hypertension; Dizziness; Nail problem; Allergic conjunctivitis, bilateral 4 Patient Outreach [facility] [facility] [address] [facility] [place] [address] Diana Walker RN Care Management - Chart Review 4 Patient Outreach [facility] [address] [facility] [place] [address] Darling Guerra RN Care Transition; CM- Telephonic Outreach; CM-Medication Assistance 4 Telephone [facility] [facility] [address] [facility] [place] [address] Ar Vaca MD Medication Management ( Disp Refills Start End /semaglutide (RYBELSUS) 14 mg Oral Tablet 120 Tablet 0 09/03/2023 - /Sig - Route: Take 1 Tablet by mouth daily. - Oral //) 4 Refill [facility] [address] [facility] [place] [address] Ar Vaca MD Medication Refill 4 Refill [facility] [place] [place] [address] Ar Vaca MD Medication Refill 4 Telephone [facility] [address] [place] [address] Ar Vaca MD Medication Management 4 Telephone [facility] [place] [address] Yoko Ortiz RN Results 4 12:41 PM EDT - 4 11:59 PM EDT Hospital Encounter [facility] [address] [place], [facility] Urinary frequency Discharge Disposition: Home or Self Care 4 Telephone [facility] [address] [facility] [place] [address] Ar Vaca MD Orders (Urinalyses ) 4 Telephone [facility] [place] [address] [facility] [place] [address] Vivien Keating RMA Prior Authorization 4 Telephone [facility] [address] [facility] [place] [address] Senait Martínez Karen Health Maintenance 4 4:10 PM EST Ancillary Procedure [facility] [place] [address] [facility] [place] [place] [address] Ar Vaca MD DDD (degenerative disc disease), cervical Discharge Disposition: Home or Self Care 4 3:43 PM EST - 4 11:59 PM EST Hospital Encounter [facility] [address] [facility] [place], [place] [address] Elevated LFTs Discharge Disposition: Home or Self Care 4 3:00 PM EST Office Visit [facility] [address] [facility] [place] [address] Ar Vaca MD Muscle pain (Primary Dx); Nausea; DDD (degenerative disc disease), cervical; Essential hypertension [address] [address] Ar Vaca MD Appointment Needed (Re-check UA) 4 Patient Outreach [facility] [address] [place] [address] Ar Vaca MD Central Patient Navigator Outreach (AWV/); Central Order Completion Outreach (Mammogram); CM-Medication Assistance; CM- Telephonic Outreach; Care Transition 4 Patient Outreach [address] [address] Diana Walker, RN CM- Telephonic Outreach; Care Transition; CM-Medication Assistance 4 Orders Only [facility] [facility] [address] [facility] [place] [address] Ar Vaca MD Elevated LFTs (Primary Dx) 4 Refill [facility] [address] [facility] [place] [address] Ar Vaca MD Medication Refill 4 3:30 PM EST Office Visit [facility] [address] [facility] [place] [address] Diana Walker, RN Encounter for support and coordination of transition of care (Primary Dx) 4 3:20 PM EST Office Visit [place] [address] [place] [address] Ar Vaca MD Medicare annual wellness visit, subsequent (Primary Dx); Elevated uric acid in blood; WILLIE (generalized anxiety disorder); Acquired hypothyroidism; CKD stage G2/A2, GFR 60-89 and albumin creatinine ratio 30-299 mg/g; Gastroesophageal reflux disease with esophagitis without hemorrhage; DDD (degenerative disc disease), cervical; Essential hypertension; Morbid obesity with body mass index of 40.0-49.9 ([facility]); Prediabetes; Urinary frequency; Major depressive disorder, single episode, in partial remission; Chronic kidney disease, stage 3a ([facility]) 4 Refill [facility] [address] [place] [address] Ar Vaca MD Medication Refill 3 Refill [facility] [place] [address] [place] [address] Ar Vaca MD Medication Refill 3 1:45 PM EDT Clinical Support [facility] [address] [place] [address] Ashly Pereira CCMA Need for influenza vaccination (Primary Dx) 3 Orders Only [facility] [address] [place] [address] Ar Vaca MD Sinobronchitis (Primary Dx); Elevated uric acid in blood 3 Telephone [facility] [address] [place] [address] Ar Vaca MD Symptom Call (sore throat, coughing up greenish/yellowish mucus, ears hurt, eyes matted in morning/) 3 3:40 PM EDT Office Visit [facility] [place] [address] [address] Ar Vaca MD Acute URI (Primary Dx); Encounter for screening for COVID-19; Hypotension, unspecified hypotension type; CKD stage G2/A2, GFR 60-89 and albumin creatinine ratio 30-299 mg/g [address] [address] Ar Vaca MD Symptom Call (throat/ear pain, body aches x this morning, no bal, [employer] Medicare) [address] [address] Ar Vaca MD Medication Refill [address] [address] Ar Vaca MD Medication Refill 3 Patient Outreach [facility] [address] [place] [address] Ar Vaca MD Central Order Completion Outreach (mammo) 3 Patient Outreach [address] [address] Diana Walker, RN CM- Telephonic Outreach; Care Transition; CM-Medication Assistance 3 2:04 PM EDT - 3 11:59 PM EDT Hospital Encounter [facility] [address] [address] Hypertriglyceridemia; Hyperglycemia; Screening, lipid; Acquired hypothyroidism Discharge Disposition: Home or Self Care 3 2:00 PM EDT Office Visit [address] [address] Ramonita Hernadez APRN Seasonal allergic rhinitis, unspecified trigger (Primary Dx); Hypertriglyceridemia; Screening, lipid; Acquired hypothyroidism; Stage 3a chronic kidney disease (HCC); Hyperglycemia [address] [place] [address] Ar Vaca MD Symptom Call (right ear pain,nausea,no appetite,body aches and dizziness x1 week) [address] [place] [address] Ar Vaca MD Symptom Call [address] [place] [address] Ar Vaca MD Medication Refill [address] [place] [address] Ar Vaca MD Medication Refill [address] [place] [address] Cornejo, Viral V, DO Medication Refill 3 Patient Outreach [address] [place] [address] Diana Wakler RN CM- Telephonic Outreach; Care Transition; CM-Medication Assistance [address] [place] [address] Ar Vaca MD Medication Refill [address] [address] Ar Vaca MD Symptom Call (yeast infections ) [address] [place] [address] Ar Vaca MD Medication Refill [address] [place] [address] Ar Vaca MD Medication Refill 3 1:15 PM EDT Office Visit [facility] Urgent [place] [phone] Gabbie Simms MD Acute non-recurrent maxillary sinusitis (Primary Dx) 3 Patient Outreach [place] [id number] Diana Walker RN CM- Telephonic Outreach; Care Transition; CM-Medication Assistance 3 Refill [facility] [address] [address] Ar Vaca MD Medication Refill [address] [address] Ar Vaca MD Medication Refill (promethazine (PHENERGAN) 25 mg Oral Tablet) [address] [address] Ar Vaca MD Symptom Call (Possible UTI/) 3 Patient Outreach [address] [address] Diana Walker RN Care Management - Face To Face; Care Transition; CM-Medication Assistance [address] [address] Ar Vaca MD Results 3 Patient Outreach [address] [address] Diana Walker, CEASAR CM- Telephonic Outreach; Care Transition; CM-Medication Assistance; CM-Resource Coordination [address] [address] Ar Vaca MD Medication Management 3 Travel 3 10:00 AM EST - 3 11:59 PM EST Hospital Encounter [facility] [address] [place] [id number] Dizziness; CKD stage G2/A2, GFR 60-89 and albumin creatinine ratio 30-299 mg/g; Pre-diabetes; Routine lab draw; Hypertriglyceridemia; Acquired hypothyroidism; Elevated uric acid in blood Discharge Disposition: Home or Self Care 3 2:30 PM EST Office Visit [facility] [place] [address] Ar Vaca MD Dizziness (Primary Dx); Fall, initial encounter; Routine lab draw; CKD stage G2/A2, GFR 60-89 and albumin creatinine ratio 30-299 mg/g; Acquired hypothyroidism; Pre-diabetes; Hypertriglyceridemia; Elevated uric acid in blood; Morbid obesity with body mass index of 40.0-49.9 (HCC); Prediabetes 3 Telephone [facility] [place] [address] Ar Vaca MD Appointment Needed (falling) 2 Refill [facility] [place] [address] Ar Vaca MD Medication Refill 2 2:20 PM EST Office Visit [facility] [place] [address] Ar Vaca MD Acute bacterial sinusitis (Primary Dx); Encounter for screening mammogram for breast cancer; Allergic reaction, initial encounter; Need for influenza vaccination [address] [address] Ar Vaca MD Medication Refill 2 Patient Outreach [address] [address] Darling Guerra RN CM-Medication Assistance; CM- Telephonic Outreach; Care Transition 2 Patient Outreach [facility] [address] [place] [address] Ar Vaca MD Central Order Completion Outreach (Mammogram/) [address] [address] Ar Vaca MD Medication Refill (Inderal) [address] [place] [address] Ar Vaca MD Medication Refill 2 Patient Outreach [address] [place] [address] Darling Guerra, CEASAR CM-Medication Assistance; CM- Telephonic Outreach; Care Transition 2 Patient Outreach [address] [place] [address] Diana Walker RN CM- Telephonic Outreach; CM-Medication Assistance; Care Transition [address] [place] [address] Ar Vaca MD Medication Refill 2 Patient Outreach [address] [address] Darling Guerra, CEASAR CM-Medication Assistance; Care Transition; Care Management - Face To Face 2 3:20 PM EDT Office Visit [address] [address] Ar Vaca MD Morbid obesity with body mass index of 40.0-49.9 (HCC) (Primary Dx); Need for shingles vaccine; Prediabetes [address] [address] Cornejo, Viral V, DO Medication Management (RYBELSUS 7 mg Oral Tablet) [address] [address] Cornejo, Viral V, DO Medication Refill 2 Refill [facility] [place] [address] Cornejo, Viral V, DO Medication Refill 2 Refill [facility] [address] Cornejo, Viral V, DO Medication Refill 2 Telephone [place] [id number] Isaac Washington MD Patient Question [facility] [address] [address] Cornejo, Viral V, DO Medication Management (Rybelsus) [address] [address] Cornejo, Viral V, DO Medication Refill 2 4:00 PM EDT [facility] [place] [address] Ar Vaca MD Medicare annual wellness visit, subsequent (Primary Dx); Acute bacterial sinusitis; DDD (degenerative disc disease), cervical; Antibiotic-induced yeast infection; Elevated uric acid in blood; Acquired hypothyroidism; Essential hypertension; Gastroesophageal reflux disease with esophagitis without hemorrhage; WILLIE (generalized anxiety disorder); Stage 3a chronic kidney disease (HCC); Hyperglycemia 2 Refill [facility] [place] [address] [place] [address] Cornejo, Viral V, DO Medication Refill 2 [facility]phone [facility] [address] Cornejo, Viral V, DO Prior Authorization 2 Refill [facility] [place] [address] Cornejo, Viral V, DO Medication Refill 2 Refill [facility] [place] [address] Cornejo, Viral V, DO Medication Refill (Phenergan ) [address] [address] Cornejo, Viral V, DO Medication Refill 2 2:15 PM EDT Office Visit [place] [id number] Isaac Washington MD Strain of neck muscle, initial encounter (Primary Dx); Lumbar pain; Strain of lumbar region, initial encounter; Spondylosis [address] [address] Cornejo, Viral V, DO Medication Refill 2 Patient Outreach [address] [address] Donna Galloway RMA Central Order Completion Outreach 2 Travel 2 2:00 PM EST Office Visit [facility] Urgent Care [address] [address] Jenni Vega PA-C Person under investigation for COVID-19 (Primary Dx); Bronchitis [address] [address] Cornejo, Viral V, DO Medication Management [address] [address] Cornejo, Viral V, DO Medication Reaction [address] [address] Cornejo, Viral V, DO Medication Refill 2 3:30 PM EST Office Visit [address] [address] Cornejo, Viral V, DO DDD (degenerative disc disease), cervical (Primary Dx); Acquired hypothyroidism; Essential hypertension; Suspected COVID-19 virus infection 2 Refill [facility] [place] [address] [facility] [place] [address] Cornejo, Viral V, DO Medication Refill 2 Orders Only [facility] [place] [address] [place] [address] Kassy Osman RMA DDD (degenerative disc disease), cervical (Primary Dx) 2 Travel 2 7:42 AM EST - 2 11:59 PM EST Hospital Encounter [facility] [address] [place] [address] Cornejo, Viral V, DO Lymphadenopathy, cervical Discharge Disposition: Home or Self Care 2 Orders Only [facility] [place] [address] [place] [address] Cornejo, Viral V, DO Hyperlipidemia, unspecified hyperlipidemia type (Primary Dx) 2 Telephone [facility] [place] [address] [facility] [place] [address] Cornejo, Viral V, DO Results 2 Refill [facility] [place] [address] [facility] [place] [address] Cornejo, Viral V, DO Medication Refill 1 Orders Only [facility] [place] [address] [facility] [place] [address] Cornejo, Viral V, DO Lymphadenopathy, cervical (Primary Dx) 1 Travel 1 10:50 AM EST - 1 11:59 PM EST Hospital Encounter [facility] [address] [place] [address] Cornejo, Viral V, DO Lymphadenopathy, cervical Discharge Disposition: Home or Self Care 1 Telephone [facility] [place] [address] [facility] [place] [address] Cornejo, Viral V, DO Results (US HEAD NECK SOFT TISSUE) 1 Orders Only [facility] [place] [facility] [address] [facility] [place] [address] Cornejo, Viral V, DO Lymphadenopathy, cervical (Primary Dx) 1 10:25 AM EST Hospital Encounter [facility] [address] [place] [address] Cornejo, Viral V, DO Hyperlipidemia, unspecified hyperlipidemia type; Hypertension; Acquired hypothyroidism; Hyperglycemia Discharge Disposition: Home or Self Care 1 Travel 1 10:26 AM EST - 1 11:59 PM EST Hospital Encounter [facility] [address] [place] [address] Cornejo, Viral V, DO Lymphadenopathy, cervical Discharge Disposition: Home or Self Care 1 Refill [facility] [address] [address] Cornejo, Viral V, DO Medication Refill 1 Travel 1 2:40 PM EST Office Visit [facility] [address] [address] Cornejo, Viral V, DO Acquired hypothyroidism (Primary Dx); Hypertension; WILLIE (generalized anxiety disorder); Fibromyalgia; OME (otitis media with effusion), right; Lymphadenopathy, cervical; Hyperglycemia; Hyperlipidemia, unspecified hyperlipidemia type; Knee strain, right, initial encounter 1 Telephone [facility] [address] [place] [address] Cornejo, Viral V, DO Symptom Call (pt is broken out from the inside of her mouth all the way down to her vagina, from the antibiotic.) 1 Refill [facility] [place] [address] Cornejo, Viral V, DO Medication Refill 1 Travel 1 1:45 PM EDT Office Visit [facility] [address] [address] Hilary Amaya, DPM Pain in right toe(s) (Primary Dx); Dystrophic nail 1 Refill [facility] [address] [address] Cornejo, Viral V, DO Medication Refill (omeprazole (PRILOSEC) 40 mg Oral Capsule, Delayed Release(E.C.)); Medication Refill (allopurinoL (ZYLOPRIM) 100 mg Oral Tablet); Medication Refill (propranoloL (INDERAL) 20 mg Oral Tablet); Medication Refill (lisinopriL-hydrochlorothiazid e (PRINZIDE;ZESTORETIC) 20-25 mg Oral Tablet); Medication Refill (LEVOthyroxine (SYNTHROID) 75 mcg Oral Tablet); Medication Refill [address] [address] Cornejo, Viral V, DO Medication Reaction (CYMBALTA) 1 3:28 PM EDT - 1 11:59 PM EDT Hospital Encounter [facility] [address] [address] WILLIE (generalized anxiety disorder); Fibromyalgia; Erosive osteoarthritis of both hands; MICHAEL (obstructive sleep apnea); Essential hypertension; Acquired hypothyroidism Discharge Disposition: Home or Self Care 1 Travel 1 3:00 PM EDT Office Visit [address] [address] Cornejo, Viral V, DO WILLIE (generalized anxiety disorder) (Primary Dx); Fibromyalgia; Erosive osteoarthritis of both hands; MICHAEL (obstructive sleep apnea); Essential hypertension; Acquired hypothyroidism; OM (onychomycosis) 1 Telephone [facility] [address] [place] [address] Cornejo, Viral V, DO Anxiety 1 Refill [facility] [address] [address] Cornejo, Viral V, DO Medication Refill (promethazine) 1 Travel 1 Telephone [facility] Neph[facility] [place] [address] [place] [place] [address] Kory Rodriguez MD Appointment Needed 1 3:15 PM EDT Office Visit [facility] Rheumatology [facility] [address] [facility] Building [address] [place] [phone] Lacho Ennis MD Erosive osteoarthritis of both hands (Primary Dx); Acquired deformity of hand, unspecified laterality; Primary osteoarthritis involving multiple joints 1 Telephone [facility] [address] [place] [id number] Maynor Ramirez MD Other [address] [address] Cornejo, Viral V, DO Medication Refill (Levothyroxine to local pharmacy.); Medication Refill (Multiple refills to [facility] 1 Travel 1 1:30 [place] [address] Maynor Ramirez MD Sternoclavicular (joint) (ligament) sprain, right, initial encounter (Primary Dx) [address] [address] Cornejo, Viral V, DO Other 1 Telephone [facility] [address] [place] [address] Stevie Piña MD Other [address] [address] Cornejo, Viral V, DO Other 1 12:15 PM EDT - 1 11:59 PM EDT Hospital Encounter [facility] [address] [place] [address] Acquired deformity of hand, unspecified laterality; Primary osteoarthritis of both hands Discharge Disposition: Home or Self Care 1 Travel 1 1:40 PM EDT - 1 11:59 PM EDT Hospital Encounter [facility] [address] [place], [place] [id number] CKD stage G2/A2, GFR 60-89 a nd albumin creatinine ratio 30-299 mg/g; Hyperglycemia; Vitamin D deficiency; Acquired deformity of hand, unspecified laterality Discharge Disposition: Home or Self Care 1 Travel 1 Travel 1 1:00 PM EDT Office Visit [facility] Rheumatology [address] [place] [address] Lacho Ennis MD Acquired deformity of hand, unspecified laterality (Primary Dx); Primary osteoarthritis of both hands; Primary osteoarthritis involving multiple joints; Vitamin D deficiency; Stage 3a chronic kidney disease (HCC); Hyperuricemia 1 Travel 1 3:20 PM EDT [facility] [address] [place] [address] Cornejo, Viral V, DO Generalized osteoarthritis of multiple sites (Primary Dx); Acquired hypothyroidism; Essential hypertension; Elevated uric acid in blood; Gastroesophageal reflux disease with esophagitis without hemorrhage; Hyperglycemia; Adhesive capsulitis of right shoulder 1 Travel 1 Patient Outreach [place] [address] [place] [address] Anuj Trevizo LPN ED Follow-Up Call 1 Travel 1 1:51 AM EDT - 1 4:43 AM EDT Emergency [facility] [address] [place] [address] Henry Valiente MD Dysuria (Primary Dx); Lower abdominal pain Discharge Disposition: Home or Self Care 1 Telephone [facility] [address] [place] [address] Cornejo, Viral V, DO Medication Management (nitrofurantoin, macrocrystal-monohydrate, (MACROBID) 100 mg Oral Capsule) 1 Travel 1 Orders Only [facility] [place] [place] [address] Laurie Rodriguez RMA UTI (urinary tract infection), uncomplicated 1 6:10 PM EST Office Visit [facility] [place] [place] [address] Cornejo, Viral V, DO UTI (urinary tract infection), uncomplicated (Primary Dx); Post-menopausal; Hyperlipidemia, unspecified hyperlipidemia type; Acquired hypothyroidism; Fibromyalgia; Claudication; Medicare annual wellness visit, subsequent; Cystic lesion of abdominal viscera 1 Travel 1 Telephone [facility] [address] [place] [address] Cornejo, Viral V, DO Symptom Call 1 Telephone [facility] [address] [place] [address] Clemente Viral V, DO Medication Management (changing to a mail-in Pharmacy) 1 Travel 1 11:15 AM EST Office Visit [facility]PHROLOG[facility] [place] [address] Kory Rodriguez MD CKD stage G2/A2, GFR 60-89 and albumin creatinine ratio 30-299 mg/g; Unspecified essential hypertension; Primary osteoarthritis of left knee; Morbid obesity with body mass index of 40.0-49.9 ([facility]) 1 Travel 1 3:00 PM EST - 1 11:59 PM EST Hospital Encounter [address] [place] [address] Stevie Piña MD Sternum pain Discharge Disposition: Home or Self Care 1 Travel 1 Travel 1 Patient Outreach [address] [place] [address] Cornejo, Viral V, DO Central Order Completion Outreach (XR Shoulder Right 4 Views; Mammogram ) 1 Orders Only [facility] [address] [place] [address] Sandy Chen LPN Primary osteoarthritis of right shoulder (Primary Dx) 1 9:57 AM EST - 1 11:59 PM EST Hospital Encounter [facility] [address] [place] [address] Acute non-recurrent sinusiti s of other sinus; Acute bronchitis, unspecified organism; COVID-19 virus infection; Clavicle pain Discharge Disposition: Home or Self Care 1 Travel [address] [address] Cornejo, Viral V, DO Orders (xray) 1 5:30 PM EST Telemedicine [facility] [address] [address] Cornejo, Viral V, DO Acute non-recurrent sinusitis of other sinus (Primary Dx); Acute bronchitis, unspecified organism; COVID-19 virus infection 1 Travel [address] [address] Cornejo, Viral V, DO Appointment Needed 1 Patient Outreach [facility] [address] [place] [address] Cornejo, Viral V, DO Central Patient Navigator Outreach (AWV Questionnaire) 1 Telephone [facility] [address] [place] [address] Cornejo, Viral V, DO Follow-up (covid ) 1 Travel 1 2:10 PM EST - 1 11:59 PM EST Hospital Encounter [facility] [address] [place] [address] Cornejo, Viral V, DO Low kidney function Discharge Disposition: Home or Self Care 1 Travel 0 Travel 0 Orders Only [facility] [place] [facility] [address] [place] [address] Sandy Chen LPN Low kidney function (Primary Dx) 0 Telephone [facility] [place] [facility] [address] [place] [address] Cornejo, Viral V, DO Results (BW from 07/10) 0 2:35 PM EST - 0 11:59 PM EST Hospital Encounter [facility] [address] [place] [address] Acquired hypothyroidism; Essential hypertension; Hypothyroidism (acquired); Low kidney function; Elevated serum free T4 level Discharge Disposition: Home or Self Care 0 Travel 0 Refill [facility] [place] [facility] [address] [place] [address] Cornejo, Viral V, DO Medication Refill 0 Travel 0 Telephone [facility] [address] [place] [address] Cornejo, Viral V, DO Referral (visual education teacher ) 0 Telephone [facility] [place] [facility] [address] [place] [address] Cornejo, Viral V, DO Orders (mammogram) 0 Telephone [facility] [place] [facility] [address] [facility] [place] [address] Senait Martínez RMA Shoulder Pain 0 Orders Only [facility] [address] [facility] [place] [address] Senait Martínez RMA H/O drug allergy (Primary Dx) 0 Travel 0 10:50 AM EST Office Visit [facility] [place] [facility] [address] [place] [address] Sacha Keller MD OME (otitis media with effusion), right (Primary Dx); H/O drug allergy; Vaginal yeast infection 0 Travel 0 Travel 0 10:00 AM EST Office Visit [facility] [address] [place] [address] [place] [phone] Shawna Ward MD Class 3 severe obesity due to excess calories with body mass index (BMI) of 50.0 to 59.9 in adult, unspecified whether serious comorbidity present (HCC) (Primary Dx) 0 Orders Only [facility] [place] [facility] [address] [email or web address] [address] Jenni Feliz, EDGAR Acute diffuse otitis externa of right ear 0 Orders Only [facility] [address] [email or web address] [address] Sandy Chen LPN Elevated TSH (Primary Dx); Elevated serum free T4 level; Acquired hypothyroidism 0 Telephone [facility] [address] [facility] [place] [address] Cornejo, Viral V, DO Results (05/15/2020); Symptom Call (uti) 0 11:33 AM EDT - 0 11:59 PM EDT Hospital Encounter [facility] [place] [facility] [address] [place] [address] Hypothyroidism (acquired); Unspecified essential hypertension Discharge Disposition: Home or Self Care 0 10:50 AM EDT Office Visit [facility] [place] [facility] [address] [email or web address] [address] Cornejo, Viral V, DO Acute diffuse otitis externa of right ear (Primary Dx); Yeast vaginitis; Hypothyroidism (acquired); Unspecified essential hypertension 0 Travel 0 Telephone [facility] [address] [email or web address] [address] Cornejo, Viral V, DO Symptom Call 0 Telephone [facility] [address] [email or web address] [address] Cornejo, Viral V, DO Results (blood work ) [address] [address] Cornejo, Viral V, DO Medication Refill 0 Travel 0 4:20 PM EDT - 0 11:59 PM EDT Hospital Encounter [facility] [place] [phone] Need for influenza vaccination; Acquired hypothyroidism; Essential hypertension; Sinusitis, unspecified chronicity, unspecified location; Dizziness; Fibromyalgia; Gastroesophageal reflux disease with esophagitis; Nausea; Elevated uric acid in blood Discharge Disposition: Home or Self Care 0 3:40 PM EDT Office Visit [address] [address] Cornejo, Viral V, DO Acquired hypothyroidism (Primary Dx); Need for influenza vaccination; Essential hypertension; Sinusitis, unspecified chronicity, unspecified location; Dizziness; Fibromyalgia; Gastroesophageal reflux disease with esophagitis without hemorrhage; Nausea; Elevated uric acid in blood; Pannus, abdominal 0 Travel [address] [address] Cornejo, Viral V, DO Symptom Call (right ear pain, dizziness) 0 Travel [address] [address] Cornejo, Viral V, DO Results (batista ) [address] [address] Cornejo, Viral V, DO Symptom Call (yeast infection ) 0 Travel 0 4:50 PM EDT Office Visit [facility] [address] [address] Cornejo, Viral V, DO Suspected COVID-19 virus infection (Primary Dx); Nausea; Essential hypertension; Gastroesophageal reflux disease with esophagitis; Sinusitis, unspecified chronicity, unspecified location; Dizziness; Fibromyalgia; Acquired hypothyroidism; Elevated uric acid in blood; Acute non-recurrent sinusitis of other sinus; DDD (degenerative disc disease), lumbar 0 Travel [address] [address] Cornejo, Viral V, DO Symptom Call (dizzy, both ears hurt, sinuses feel puffy, throat is a little sore) [address] [address] Lora Domínguez RMA Other 0 Patient Outreach [facility] [address] [place] [address] Cornejo, Viral V, DO Schedule Appointment 0 4:16 PM EDT - 0 11:59 PM EDT Hospital Encounter [facility] [place] [address] [address] Subjective memory complaints ; Hypothyroidism (acquired); Abnormal glucose Discharge Disposition: Home or Self Care 0 Travel 0 2:15 PM EDT - 0 4:15 PM EDT Hospital Encounter [facility] [address] [facility] [place] [address] Arthritis of right foot; Arthritis of left foot; Capsulitis of ankle, right Discharge Disposition: Home or Self Care 0 3:30 PM EDT Office Visit [facility] [address] [address] Karen Gonzalez MD Pain in both hands (Primary Dx); Abnormal glucose; Hypothyroidism (acquired); Subjective memory complaints 0 Travel [address] [address] Cornejo, Viral V, DO Appointment Needed (neck, collarbone, shoulder pain on the right side / feels like there is a heaviness in her chest / worsening in the last week) 0 Travel 0 Patient Outreach [facility] [place] [facility] [address] [place] [address] Cornejo, Viral V, DO Central Order Completion Outreach 0 Telephone [facility] [place] [address] Cornejo, Viral V, DO Symptom Call (leg and hand swelling) 0 Telephone [facility] [place] [address] Cornejo, Viral V, DO Other 0 Orders Only [address] [place] [address] Ramonita Hernadez APRN Thrush (Primary Dx); Acute bronchitis, unspecified organism 0 Telephone [facility] [place] [address] Jameson Terrazas LPN Extremity Weakness 0 Telephone [facility] [place] [place] [address] Cornejo, Viral V, DO Medication Management (predniSONE (DELTASONE) 20 mg Oral Table) 0 Telephone [facility] [place] [address] Cornejo, Viral V, DO Symptom Call (dizziness, weakness, cough, ear ache ) 0 Telephone [facility] [place] [place] [address] Cornejo, Viral V, DO Medication Management (Prednisone ) 0 Orders Only [facility] [address] [place] [address] Sandy Chen LPN Fibromyalgia; Viral syndrome 0 3:20 PM EDT Office Visit [facility] [place] [address] [place] [address] Cornejo, Viral V, DO Acquired hypothyroidism (Primary Dx); Unspecified essential hypertension; WILLIE (generalized anxiety disorder); Fibromyalgia; Viral syndrome 0 Travel 0 Telephone [facility] [address] [facility] [place] [place] [address] Cornejo, Viral V, DO Medication Problem (Venlafaxine and Lyrica) 0 Orders Only [facility] [place] [facility] [address] [facility] [place] [address] Jameson Terrazas LPN Low kidney function (Primary Dx); Hypothyroidism (acquired) 0 3:50 PM EST - 0 11:59 PM EST Hospital Encounter [facility] [place] [address] [place] [address] Acquired hypothyroidism; Hyperglycemia; Essential hypertension Discharge Disposition: Home or Self Care 0 3:30 PM EST Office Visit [facility] [place] [address] Cornejo, Viral V, DO Hyperglycemia (Primary Dx); Acquired hypothyroidism; Essential hypertension; Fibromyalgia; Nausea; Eczema, unspecified type; Gastroesophageal reflux disease with esophagitis; WILLIE (generalized anxiety disorder); Elevated uric acid in blood; Sinusitis, unspecified chronicity, unspecified location; Dizziness; Well adult exam 0 Telephone [facility] [address] Cornejo, Viral V, DO Lab Orders (thyroid ) 9 11:03 AM EST - 9 11:59 PM EST Hospital Encounter [facility] [place] [facility] [address] [place] [address] Serum potassium elevated; WILLIE (generalized anxiety disorder); Seasonal allergic rhinitis due to pollen; Unspecified essential hypertension; Acquired hypothyroidism; Fibromyalgia Discharge Disposition: Home or Self Care 9 3:30 PM EST Office Visit [facility] [place] [address] Cornejo, Viral V, DO WILLIE (generalized anxiety disorder) (Primary Dx); Need for influenza vaccination; Seasonal allergic rhinitis due to pollen; Unspecified essential hypertension; Acquired hypothyroidism; Fibromyalgia 9 Refill [facility] [address] [place] [address] Cornejo, Viral V, DO Medication Refill [address] [address] Cornejo, Viral V, DO Medication Refill [address] [address] Cornejo, Viral V, DO Other ( sending results from uropathy ) 9 5:04 PM EDT - 9 11:59 PM EDT Hospital Encounter [address] [place] [address] Efrem Higginbotham MD Low back pain, unspecified back pain laterality, unspecified chronicity, unspecified whether sciatica present; Degeneration of lumbar intervertebral disc Discharge Disposition: Home or Self Care [address] [address] Cornejo, Viral V, DO Symptom Call [address] [address] Cornejo, Viral V, DO Referral Follow-up (Sleep Med) 9 3:40 PM EDT Office Visit [address] [address] Cornejo, Viral V, DO Lumbar radiculopathy (Primary Dx); DDD (degenerative disc disease), lumbar; Situational depression [address] [address] Cornejo, Viral V, DO Medication Refill 9 Orders Only [address] [address] Jameson Terrazas LPN 9 1:45 PM EDT - 9 11:59 PM EDT Hospital Encounter [facility] [address] [place], [place] [id number] Essential hypertension; Hyperglycemia Discharge Disposition: Home or Self Care 9 4:00 PM EDT Hospital Encounter [facility] [address] [place] [address] Left without seen 9 3:40 PM EDT Office Visit [address] [address] Cornejo, Viral V, DO Hyperlipidemia with target LDL less than 100 (Primary Dx); Acquired hypothyroidism; Fibromyalgia; Gastroesophageal reflux disease with esophagitis; Nausea; Eczema, unspecified type; Essential hypertension; Insomnia, persistent; Need for hepatitis B vaccination; Need for pneumococcal vaccination; MICHAEL (obstructive sleep apnea); Hyperglycemia; Lipoma of upper extremity, unspecified laterality [address] [address] Cornejo, Viral V, DO Referral (GI Doctor) 9 Telephone [place] [phone] Senait Martínez RMA Paperwork/forms [address] [address] Cornejo, Viral V, DO Medication Refill [address] [address] Cornejo, Viral V, DO Medication Refill [address] [address] Cornejo, Viral V, DO Medication Management (cancel prescription for amitriptyline (ELAVIL) 50 mg Oral Tablet [[id number]] ) 9 Orders Only [address] [address] Senait Martínez RMA Insomnia, persistent; Eczema, unspecified type; Acquired hypothyroidism; Gastroesophageal reflux disease with esophagitis; Nausea; Unspecified essential hypertension; Hyperlipidemia with target LDL less than 100; Elevated uric acid in blood; Fibromyalgia; Essential hypertension [address] [address] Sandy Chen LPN Other [address] [address] Cornejo, Viral V, DO Medication Management (traZODone (DESYREL) 50 mg Oral Tablet) 9 2:11 PM EST - 9 11:59 PM EST Hospital Encounter [facility] [address] [address] Arthralgia of both hands; Pain in joints of both feet Discharge Disposition: Home or Self Care 9 1:30 PM EST Office Visit [address] [address] Ramonita Hernadez APRN Arthralgia of both hands (Primary Dx); Pain in joints of both feet; Eczema, unspecified type; Acquired hypothyroidism; Insomnia, persistent [address] [address] Cornejo, Viral V, DO Medication Refill [address] [address] Cornejo, Viral V, DO Medication Refill [address] [address] Cornejo, Viral V, DO Other (Medical Necessity for personal home helper benefit) 9 Orders Only [address] [address] Jameson Terrazas LPN Fibromyalgia; Hyperlipidemia with target LDL less than 100 9 11:41 AM EST - 9 11:59 PM EST Hospital Encounter [facility] [address] [place] [address] Cornejo, Viral V, DO Claudication; Lumbar radiculopathy; Numbness of right foot Discharge Disposition: Home or Self Care 9 Telephone [facility] [place] [facility] [address] [place] [address] Cornejo, Viral V, DO Medication Management (pharmacy change ) 9 Refill [facility] [address] [place] [address] Cornejo, Viral V, DO Medication Refill 9 Orders Only [facility] [address] [place] [address] Senait Martínez, EDGAR Serum potassium elevated (Primary Dx) 9 Refill [facility] [address] [place] [address] Cornejo, Viral V, DO Medication Refill 9 4:18 PM EST - 9 11:59 PM EST Hospital Encounter [facility] [address] [place] [address] Hyperlipidemia with target L DL less than 100; Controlled type 2 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 disease, unspecified whether fdc insulin use (HCC) Discharge Disposition: Home or Self Care 9 3:10 PM EST Office Visit [facility] [address] [place] [address] Cornejo, Viral V, DO Acute non-recurrent sinusitis of other sinus (Primary Dx); Tinea corporis; WILLIE (generalized anxiety disorder); Abdominal lipoma; Claudication; Numbness of right foot; Lumbar radiculopathy; Controlled type 2 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 [address] Cornejo, Viral V, DO Medication Refill 9 Telephone [facility] [place] [address] [place] [address] Cornejo, Viral V, DO Symptom Call (sinus infection) 8 3:20 PM EST - 8 11:59 PM EST Hospital Encounter [facility] [address] [place], [place] [id number] Acquired hypothyroidism; Hyperlipidemia with target LDL less than 100; Fatty liver; Increased potassium in the blood Discharge Disposition: Home or Self Care 8 Telephone [facility] [place] [address] [address] Sandy Chen LPN Sinusitis 8 Refill [facility] [place] [address] [place] [address] Cornejo, Viral V, DO Medication Refill 8 4:10 PM EDT Office Visit [facility] [place] [address] [facility] [place] [address] Cornejo, Viral V, DO Acute non-recurrent sinusitis of other sinus (Primary Dx); Need for influenza vaccination; Seasonal allergic rhinitis due to pollen; Gastroesophageal reflux disease without esophagitis; Unspecified essential hypertension; Acquired hypothyroidism 8 Refill [facility] [address] [facility] [place] [address] Cornejo, Viral V, DO Medication Refill 8 Refill [facility] [place] [address] [place] [address] Cornejo, Viral V, DO Medication Refill 8 12:59 PM EDT - 8 11:59 PM EDT Hospital Encounter [facility] [address] [place] [address] Cornejo, Viral V, DO Abnormal mammogram; Breast calcification, right Discharge Disposition: Home or Self Care 8 1:08 PM EDT - 8 11:59 PM EDT Hospital Encounter [facility] [place] [facility] [address] [place] [address] Acquired hypothyroidism Discharge Disposition: Home or Self Care 8 Telephone [facility] [place] [facility] [address] [place] [address] Jameson Terrazas LPN Orders 8 Refill [facility] [place] [facility] [address] [place] [address] Cornejo, Viral V, DO Medication Refill 8 1:10 PM EDT Office Visit [facility] [place] [address] [place] [address] Cornejo, Viral V, DO Encounter for screening mammogram for breast cancer (Primary Dx); Gastroesophageal reflux disease with esophagitis; Acquired hypothyroidism; Hyperlipidemia with target LDL less than 100; Insomnia, persistent; Essential hypertension; Need for shingles vaccine 8 Orders Only [facility] [place] [address] [place] [address] Sandy Chen LPN Hyperlipidemia, unspecified hyperlipidemia type (Primary Dx); Elevated hemoglobin A1c 8 Refill [facility] [place] [facility] [address] [place] [address] Cornejo, Viral V, DO Medication Refill 8 3:15 PM EDT - 8 11:59 PM EDT Hospital Encounter [facility] [address] [place], [place] [id number] Unspecified essential hypertension; Hypertriglyceridemia Discharge Disposition: Home or Self Care 8 1:25 PM EDT - 8 11:59 PM EDT Hospital Encounter [facility] [address] [place] [address] [id number] Rajesh Roca MD Emg, Mason Edg Numbness and tingling of both feet (Primary Dx) Discharge Disposition: Home or Self Care 8 12:05 PM EDT - 8 1:24 PM EDT Hospital Encounter [facility] [address] [place] [address] Rajesh Roca MD Lumbar radiculopathy Discharge Disposition: Home or Self Care 8 Refill [facility] [place] [facility] [address] [place] [address] Cornejo, Viral V, DO Medication Refill 8 2:00 PM EDT Office Visit [facility] [place] [facility] [address] [place] [address] Cornejo, Viral V, DO Chronic maxillary sinusitis (Primary Dx); Unspecified essential hypertension; Insomnia, persistent; Hyperlipidemia with target LDL less than 100; Acquired hypothyroidism; Fibromyalgia; Elevated uric acid in blood; Hypertriglyceridemia; Well adult exam 8 Refill [facility] [address] [address] Estee Branch RMA Medication Refill 8 Telephone [facility] [address] [address] Rio Quintero MD Medication Refill 8 Refill [facility] [address] [place] [address] Ramonita Hernadez APRN Medication Refill 8 Telephone [facility] [place] [facility] [address] [place] [address] Cornejo, Viral V, DO Other (US RUQ) 8 Telephone [facility] [address] [address] Rajesh Gutierrez MD PHD Medication Question 8 2:00 PM EDT Office Visit [facility] [address] [address] Rio Quintero MD Chronic maxillary sinusitis (Primary Dx) 8 12:10 PM EDT Office Visit [facility] [address] [place] [id number] Carrillo Manriquez MD Chronic maxillary sinusitis (Primary Dx) 8 4:45 PM EDT - 8 11:59 PM EDT Hospital Encounter [facility] [address] [place] [address] Constipation, chronic Discharge Disposition: Home or Self Care 8 Refill [facility] [place] [facility] [address] [place] [address] Cornejo, Jose V, DO Medication Refill [address] [place] [address] Carrillo Manriquez MD Results 8 10:45 AM EDT - 8 11:59 PM EDT Hospital Encounter [facility] [address] [place] [address] Carrillo Manriquez MD Chronic sinusitis, unspecified location Discharge Disposition: Home or Self Care 8 Patient Outreach [facility] [place] [facility] [address] [place] [address] Danna Chamorro LPN ED Follow-Up Call 8 8:26 PM EDT - 8 11:53 PM EDT Emergency [facility] [place] [address] Kristopher Richard MD Upper abdominal pain (Primary Dx) Discharge Disposition: Home or Self Care 8 Telephone [facility] [address] [address] Rajesh Gutierrez MD PHD Medication Question 8 Telephone [facility] 651 [facility] Building [address] [place] [address] Rajesh Gutierrez MD PHD Results (BLOOD WORK) 8 1:35 PM EDT - 8 11:59 PM EDT Hospital Encounter [facility] 238 [facility] [place] [address] Fatty liver; Obesity, Class III, BMI 40-49.9 (morbid obesity) (HCC) Discharge Disposition: Home or Self Care 8 12:30 PM EDT [facility] [address] [place] [address] Rajesh Gutierrez MD PHD Right upper quadrant abdominal pain (Primary Dx); Fatty liver; Obesity, Class III, BMI 40-49.9 (morbid obesity) (HCC) 8 Telephone [facility] [place] [facility] [address] [place] [address] Sandy Chen LPN Other 8 Telephone [facility] [address] [facility] [place] [address] Senait Martínez RMA Abdominal Pain 8 Orders Only [facility] [place] [facility] [address] [facility] [place] [address] Jameson Terrazas LPN Fatty liver (Primary Dx); Increased potassium in the blood 8 1:30 PM EDT - 8 1:32 PM EDT Hospital Encounter [facility] [address] [place] [address] Jose Cornejo V, DO Screening for diabetes mellitus (DM); Blood glucose elevated Discharge Disposition: Home or Self Care 8 1:34 PM EDT - 8 11:59 PM EDT Hospital Encounter [facility] [address] [place] [address] Arehart, Ramonita, EDITORIAL PROJECT MANAGER Periumbilical abdominal pain; Abdominal distension Discharge Disposition: Home or Self Care 8 1:33 PM EDT Hospital Encounter [facility] Ultrasound [address] [place], [place] [id number] Cornejo, Viral V, DO Epigastric abdominal pain Discharge Disposition: Home or Self Care 8 Telephone [facility] [address] [place] [address] Cornejo, Viral V, DO Lab Orders; Vaginitis 8 Refill [facility] [address] [place] [address] Carrillo Manriquez MD Medication Refill 8 Telephone [facility] [address] [place] [address] Sandy Chen LPN Abdominal Pain 8 Orders Only [facility] [place] [address] [address] Laurie Rodriguez RMA Hyperlipidemia with target LDL less than 100 (Primary Dx) 8 Refill [facility] [place] [address] [place] [address] Ramonita Hernadez APRN Medication Refill 8 Telephone [facility] [address] [address] Cornejo, Viral V, DO Other (Xray tracking ) 8 Refill [facility] [place] [facility] [address] [facility] [place] [address] Cornejo, Viral V, DO Medication Refill 8 Telephone [facility] [address] [place] [address] Carrillo Manriquez MD Sinusitis 8 4:55 PM EST - 8 11:59 PM EST Hospital Encounter [facility] [place] [facility] [address] [place] [address] Fibromyalgia; Acquired hypothyroidism; Unspecified essential hypertension; Gastroesophageal reflux disease with esophagitis; Chronic sinusitis, unspecified location; Epigastric abdominal pain Discharge Disposition: Home or Self Care 8 4:00 PM EST Office Visit [facility] [place] [facility] [address] [facility] [place] [address] Cornejo, Viral V, DO Chronic sinusitis, unspecified location (Primary Dx); Fibromyalgia; Acquired hypothyroidism; Unspecified essential hypertension; Gastroesophageal reflux disease with esophagitis; Epigastric abdominal pain 8 Refill [facility] [place] [facility] [address] [facility] [place] [address] Cornejo, Viral V, DO Medication Refill [address] [place] [address] Carrillo Manriquez MD Results 8 1:30 PM EST Office Visit [address] [place] [address] Carrillo Manriquez MD Acute maxillary sinusitis, recurrence not specified (Primary Dx) 8 Refill [facility] [place] [facility] [address] [facility] [place] [address] Ramonita Hernadez APRN Medication Refill 7 Refill [facility] [place] [facility] [address] [place] [address] Cornejo, Viral V, DO Medication Refill [address] [place] [address] Carrillo Manriquez MD Results 7 10:25 AM EST Office Visit [address] [address] Carrillo Manriquez MD Acute maxillary sinusitis, recurrence not specified (Primary Dx); Chronic maxillary sinusitis; History of sinus surgery 7 Refill [facility] [address] [facility] [place] [address] Cornejo, Viral V, DO Medication Refill 7 Telephone [facility] [place] [address] [address] Cornejo, Viral V, DO Other (CT Abdomen) 7 Refill [facility] [address] [address] Cornejo, Viral V, DO Medication Refill 7 Refill [facility] [address] [address] Sandy Chen LPN Medication Refill 7 Refill [facility] [address] [address] Cornejo, Viral V, DO Medication Refill 7 3:03 PM EDT - 7 11:59 PM EDT Hospital Encounter [facility] [place] [address] [address] Malaise and fatigue; Screening, anemia, deficiency, iron; Hyperglycemia Discharge Disposition: Home or Self Care 7 3:20 PM EDT Office Visit [facility] [address] [address] Ramonita Hernadez APRN WILLIE (generalized anxiety disorder) (Primary Dx); Need for influenza vaccination; Nausea; Unspecified essential hypertension; Gastroesophageal reflux disease without esophagitis; Periumbilical abdominal pain; Acquired hypothyroidism; Malaise and fatigue; Dysuria; High risk medications (not anticoagulants) long-term use; Screening, anemia, deficiency, iron; Hyperglycemia; Abdominal distension 7 11:15 AM EDT Office Visit [facility] [address] [address] Carrillo Manriquez MD Chronic maxillary sinusitis (Primary Dx) 7 Refill [facility] [place] [address] Cronejo, Viral V, DO Medication Refill 7 Refill [facility] 405 [facility] [place] [address] Lora Domínguez, RMA Medication Refill 7 [facility] [address] [facility] [address] [place] [address] Carrillo Manriquez MD Abdominal Pain 7 Refill [facility] [place] [facility] [address] [facility] [place] [address] Cornejo, Viral V, DO Medication Refill 7 Telephone [facility] [place] [facility] [address] [facility] [place] [address] Senait Martínez, RMA Nausea 7 12:45 PM EDT Office Visit ENT[address] [place] [address] Carrillo Manriquez MD Chronic maxillary sinusitis (Primary Dx) 7 Orders Only [facility] [place] [facility] [address] [facility] [place] [address] Donna Galloway, RMA Nausea (Primary Dx) 7 Telephone [facility] [place] [facility] [address] [facility] [place] [address] Cornejo, Viral V, DO Other (med refill ) 7 Refill [facility] [place] [facility] [address] [facility] [place] [address] Cornejo, Viral V, DO Medication Refill [address] [place] [address] Carrillo Manriquez MD Results 7 Telephone [facility] [place] [facility] [address] [facility] [place] [address] Senait Martínez RMA Other 7 4:14 PM EDT - 7 11:59 PM EDT Hospital Encounter [facility] [place] [address] Chronic maxillary sinusitis Discharge Disposition: Home or Self Care 7 Telephone [facility] [facility] [address] [place] [address] Cornejo, Viral V, DO Other (XR Wrist Left Pa Lateral and Oblique) 7 12:45 PM EDT Office Visit [facility] [address] [place] [address] Carrillo Manriquez MD Chronic maxillary sinusitis (Primary Dx) 7 8:00 AM EDT - 7 8:45 AM EDT Surgery [facility] [place] [address] Rajesh Gutierrez MD PHD ESOPHAGOGASTRODUODENOSCOPY (ANESTHESIA) 7 8:04 AM EDT Anesthesia Event [facility] [place] [address] Semaj Vega MD Merkle Serey, Jennifer L, KEITH 7 6:37 AM EDT - 7 11:59 PM EDT Hospital Encounter [facility] [place] [address] Rajesh Gutierrez MD PHD Discharge Disposition: Home or Self Care 7 Orders Only [facility] [place] [facility] [address] [place] [address] Jameson Terrazas LPN Abnormal nasal finding (Primary Dx) 7 10:20 AM EDT Office Visit [facility] [address] [place] [address] Harshil Sanchez MD Lipoma of left lower extremity 7 Telephone [facility] [place] [facility] [address] [place] [address] Yaneth Gonsalez, RMA Gout 7 2:27 PM EDT - 7 11:59 PM EDT Hospital Encounter [facility] [place] [facility] [address] [place] [address] Acquired hypothyroidism; Hyperglycemia; Hyperlipidemia with target LDL less than 130; Left wrist pain; Need for hepatitis C screening test; Acute non-recurrent sinusitis of other sinus; Unspecified essential hypertension; Fibromyalgia Discharge Disposition: Home or Self Care 7 1:50 PM EDT Office Visit [facility] [address] [place] [address] Cornejo, Viral V, DO Acute non-recurrent sinusitis of other sinus (Primary Dx); Unspecified essential hypertension; Fibromyalgia; Acquired hypothyroidism; Need for hepatitis C screening test; Left wrist pain 7 12:45 PM EDT Office Visit [facility] [address] [address] Kristopher Crump MD Unspecified essential hypertension (Primary Dx); MICHAEL (obstructive sleep apnea); Fibromyalgia; Class 3 obesity due to excess calories with serious comorbidity and body mass index (BMI) of 50.0 to 59.9 in adult (HCC) 7 Refill [facility] [place] [facility] [address] [place] [address] Cornejo, Viral V, DO Medication Refill 7 Refill [facility] [place] [facility] [address] [place] [address] Cornejo, Viral V, DO Medication Refill 7 Refill [facility] [place] [address] [place] [address] Ramonita Hernadez APRN Medication Refill 7 Refill [facility] [address] [place] [address] Semaj Ballesteros MD Medication Refill 7 Refill [facility] [place] [address] [place] [address] Cornejo, Viral V, DO Medication Refill 7 Telephone [facility] [address] [address] Rajesh Gutierrez MD PHD Cancellation 7 Telephone [facility] [address] [address] Rajesh Gutierrez MD PHD Medication Management (Suprep) 7 Telephone [facility] [address] [address] Rajesh Gutierrez MD PHD EGD (scheduling); Colonoscopy 7 Refill [facility] [place] [address] [place] [address] Semaj Ballesteros MD Medication Refill 7 3:45 PM EDT Office Visit [address] [address] Rajesh Gutierrez MD PHD Lower abdominal pain (Primary Dx); Rectal pain; Hematochezia; Constipation due to opioid therapy; Irritable bowel syndrome with constipation; Esophageal dysphagia 7 Telephone [facility] [address] [place] [address] Rajesh Gutierrez MD PHD Other 7 1:50 PM EDT Office Visit [facility] [place] [facility] [address] [place] [address] Cornejo, Viral V, DO Gastroesophageal reflux disease without esophagitis (Primary Dx); WILLIE (generalized anxiety disorder); Unspecified essential hypertension; Acquired hypothyroidism; Lipoma of left upper extremity 7 Telephone [facility] [address] [place] [address] Jameson Terrzaas LPN Medication Refill 7 Refill [facility] [place] [facility] [address] [place] [address] Laurie Rodriguez RMA Medication Refill 7 3:00 PM EDT Office Visit [facility] [place] [facility] [address] [place] [address] Ramonita Hernadez APRN Diarrhea, unspecified type (Primary Dx); Fungal dermatitis; Hyperlipidemia with target LDL less than 130; Obesity, Class III, BMI 40-49.9 (morbid obesity) ([facility]); BMI 45.0-49.9, adult ([facility]); Hyperglycemia; Acquired hypothyroidism; Family history of colon cancer; History of colon polyps 7 Refill [facility] [place] [facility] [address] [place] [address] Cornejo, Viral V, DO Medication Refill 7 Telephone [facility] [place] [facility] [address] [place] [address] Sandy Chen LPN Cough; Medication Refill 7 Orders Only [facility] [place] [facility] [address] [place] [address] Senait Martínez RMA Gastroesophageal reflux disease with esophagitis (Primary Dx) 7 Telephone [facility] [place] [facility] [address] [place] [address] Jameson Terrazas LPN Medication Refill 7 Orders Only [facility] [place] [facility] [address] [place] [address] Jameson Terrazas LPN Vitamin D deficiency (Primary Dx) 7 2:36 PM EST - 7 11:59 PM EST Hospital Encounter [facility] [place] [facility] [address] [place] [address] Vitamin D deficiency; Anemia, unspecified type Discharge Disposition: Home or Self Care 7 1:40 PM EST Office Visit [facility] [address] [place] [address] Cornejo, Viral V, DO Unspecified essential hypertension (Primary Dx); WILLIE (generalized anxiety disorder); Insomnia, persistent; Acquired hypothyroidism; Obesity, Class III, BMI 40-49.9 (morbid obesity) ([facility]); Generalized osteoarthritis of multiple sites; Vitamin D deficiency 7 Telephone [facility] [place] [facility] [address] [place] [address] Senait Martínez RMA Medication Refill 7 Telephone [facility] [place] [facility] [address] [place] [address] Ramonita Hernadez APRN Vaginitis 7 Orders Only [facility] [place] [facility] [address] [place] [address] Adam Moon RMA Yeast infection (Primary Dx) 7 3:30 PM EST Office Visit [facility] [place] [facility] [address] [place] [address] Ramonita Hernadez, EPIFANIO Acute non-recurrent pansinusitis (Primary Dx); Acute bronchitis, unspecified organism; Fibromyalgia 7 Orders Only [facility] [facility] [address] [place] [address] Yaneth Gonsalez RMA WILLIE (generalized anxiety disorder) 7 Orders Only [facility] [place] [facility] [address] [place] [address] Sandy Chen LPN WILLIE (generalized anxiety disorder) (Primary Dx) 7 Orders Only [facility] [facility] [address] [place] [address] Yaneth Gonsalez RMA Nausea and vomiting, intractability of vomiting not specified, unspecified vomiting type (Primary Dx); WILLIE (generalized anxiety disorder) 7 Refill [facility] [place] [facility] [address] [place] [address] Sandy Chen LPN Medication Refill 7 Orders Only [facility] [place] [facility] [address] [place] [address] Arehart, Ramonita, EDITORIAL PROJECT MANAGER Fibromyalgia (Primary Dx) 6 Orders Only [facility] [place] [facility] [address] [place] [address] Jenni Feliz, RMA WILLIE (generalized anxiety disorder) 6 Refill [facility] [place] [facility] [address] [place] [address] Cornejo, Viral V, DO Medication Refill 6 Telephone [facility] [place] [facility] [address] [place] [address] ChenSandy LPN Medication Problem 6 Orders Only [facility] [place] [facility] [address] [place] [address] Chen, Sandy, CELLULAR BIOLOGIST Insomnia, persistent 6 Orders Only [facility] [place] [facility] [address] [place] [address] Juliane Guzman, RMA WILLIE (generalized anxiety disorder) 6 Refill [facility] [place] [facility] [address] [place] [address] Jameson Terrazas LPN Medication Refill 6 Refill [facility] [place] [facility] [address] [place] [address] Cornejo, Viral V, DO Medication Refill 6 4:05 PM EST - 6 11:59 PM EST Hospital Encounter [facility] [address] [place] [address] Pre-op examination; Surgery, elective Discharge Disposition: Home or Self Care 6 Refill [facility] [place] [facility] [address] [place] [address] Cornejo, Viral V, DO Medication Refill 6 2:00 PM EST Office Visit [facility] [place] [facility] [address] [place] [address] Cornejo, Viral V, DO Pre-op examination (Primary Dx); Strain of right knee, initial encounter; Osteoarthritis of right knee, unspecified osteoarthritis type; Surgery, elective 6 Refill [facility] [place] [facility] [address] [place] [address] Jose Cornejo DO Medication Refill 6 9:45 AM EST - 6 11:59 PM EST Hospital Encounter [facility] [address] [place] [address] Kristopher Crump MD Unspecified essential hypertension; Morbid obesity due to excess calories (HCC); Precordial pain; MICHAEL (obstructive sleep apnea); Preop cardiovascular exam Discharge Disposition: Home or Self Care 6 9:00 AM EST - 6 9:44 AM EST Hospital Encounter [facility] [address] [place] [address] Kristopher Crump MD Unspecified essential hypertension; Morbid obesity due to excess calories (HCC); Precordial pain; MICHAEL (obstructive sleep apnea); Preop cardiovascular exam Discharge Disposition: Home or Self Care 6 7:52 AM EST - 6 8:59 AM EST Hospital Encounter [facility] [address] [place] [address] Kristopher Crump MD Unspecified essential hypertension; Morbid obesity due to excess calories (HCC); Precordial pain; MICHAEL (obstructive sleep apnea); Preop cardiovascular exam Discharge Disposition: Home or Self Care 6 10:15 AM EST Office Visit [facility] [place] [address] [place] [address] Kristopher Crump MD Unspecified essential hypertension (Primary Dx); Morbid obesity due to excess calories (HCC); Precordial pain; MICHAEL (obstructive sleep apnea); Preop cardiovascular exam 6 Refill [facility] [place] [facility] [address] [place] [address] Senait Martínez RMA Medication Refill 6 11:30 AM EDT - 6 11:59 PM EDT Hospital Encounter [facility] Ultrasound [address] [place] [address] Cornejo, Viral V, DO Pelvic pain Discharge Disposition: Home or Self Care 6 Orders Only [facility] [place] [address] [facility] [place] [address] Senait Martínez RMA Anemia, unspecified type (Primary Dx) 6 7:20 PM EDT - 6 11:59 PM EDT Hospital Encounter [facility] [place] [address] Pelvic pain; Insomnia, persistent; Acquired hypothyroidism; Unspecified essential hypertension; Chronic fatigue; Hyperglycemia Discharge Disposition: Home or Self Care 6 1:10 PM EDT Office Visit [facility] [place] [address] [place] [address] Cornejo, Viral V, DO Pelvic pain (Primary Dx); Insomnia, persistent; Acquired hypothyroidism; Unspecified essential hypertension; Chronic fatigue; Hyperglycemia; Flu vaccine need 6 [facility] [address] [place] [address] Cornejo, Viral V, DO ED Follow-Up Call 6 1:26 PM EDT - 6 3:45 PM EDT Emergency [facility] [place] [address] Iftikhar Pike MD Nonspecific chest pain (Primary Dx); Cervical radicular pain Discharge Disposition: Home or Self Care 6 Refill [facility] [place] [facility] [address] [facility] [place] [address] Cornejo, Viral V, DO Medication Refill 6 Refill [facility] [place] [facility] [address] [facility] [place] [address] Cornejo, Viral V, DO Medication Refill 6 Telephone [facility] [place] [address] [facility] [place] [address] Cornejo, Viral V, DO Medication Management [address] [address] Cornejo, Viral V, DO Results 6 Orders Only [address] [address] Cornejo, Viral V, DO Osteoarthritis, unspecified osteoarthritis type, unspecified site (Primary Dx) 6 9:01 AM EDT - 6 11:59 PM EDT Hospital Encounter [facility] [address] [place] [address] Diabetes type 2, controlled (HCC) Discharge Disposition: Home or Self Care 6 9:00 AM EDT Hospital Encounter [facility] [address] [place] [address] Right knee pain Discharge Disposition: Home or Self Care [address] [address] Senait Martínez RMA Other 6 10:41 PM EDT - 6 11:59 PM EDT Hospital Encounter [facility] [place] [address] Encounter for medication management Discharge Disposition: Home or Self Care 6 1:20 PM EDT Office Visit [address] [address] Cornejo, Viral V, DO WILLIE (generalized anxiety disorder) (Primary Dx); Encounter for medication management; Insomnia, persistent; Diabetes type 2, controlled (HCC); EIC (epidermal inclusion cyst); Right knee pain; Dysuria [address] [address] Sandy Chen LPN Medication Refill [address] [address] Cornejo, Viral V, DO Medication Refill 6 Telephone [facility] [address] [address] Sandy Chen LPN Other 6 Refill [facility] [address] [address] Cornejo, Viral V, DO Medication Refill 6 Refill [facility] [address] [address] Cornejo, Viral V, DO Medication Refill [address] [address] Ocrnejo, Viral V, DO Medication Refill 6 6:00 PM EDT - 6 11:59 PM EDT Hospital Encounter [facility] [address] [facility] [place], [place] [id number] Acquired hypothyroidism Discharge Disposition: Home or Self Care 6 3:50 PM EDT Office Visit [address] [address] Cornejo, Viral V, DO WILLIE (generalized anxiety disorder) (Primary Dx); Gastroesophageal reflux disease without esophagitis; Unspecified essential hypertension; Fibromyalgia; Obesity, morbid, BMI 50 or higher (HCC); Acquired hypothyroidism; Coronary artery spasm 6 Telephone [facility] [place] [facility] [address] [place] [address] Lora Domínguez, RMA Other 6 Refill [facility] [address] [address] Cornejo, Viral V, DO Medication Refill 6 Refill [facility] [place] [facility] [address] [place] [address] Cornejo, Viral V, DO Medication Refill 6 Refill [facility] [place] [address] Cornejo, Viral V, DO Medication Refill 6 Refill [facility] [place] [facility] [address] [facility] [place] [address] Cornejo, Viral V, DO Medication Refill 6 Refill [facility] [place] [facility] [address] [place] [address] Cornejo, Viral V, DO Medication Refill 6 2:28 PM EST - 6 11:59 PM EST Hospital Encounter [facility] [place] [address] Acquired hypothyroidism; Unspecified essential hypertension Discharge Disposition: Home or Self Care 6 9:00 AM EST Office Visit [address] [address] Sacha Keller MD WILLIE (generalized anxiety disorder) (Primary Dx); Acquired hypothyroidism; Unspecified essential hypertension; Achilles bursitis, left; MICHAEL (obstructive sleep apnea) 6 Refill [facility] [place] [address] Ramonita Noriega, EDGAR Medication Refill 5 Refill [facility] [address] [address] Jameson Terrazas LPN Medication Refill 5 Refill [facility] [place] [place] [address] Cornejo, Viral V, DO Medication Refill 5 Refill [facility] [place] [place] [address] Cornejo, Viral V, DO Medication Refill 5 [facility]ill [facility] [place] [facility] [address] [facility] [place] [address] Cornejo, Viral V, DO Medication Refill 5 [facility]ill [facility] [place] [facility] 405 [facility] [place] [address] Cornejo, Viral V, DO Medication Refill 5 Refill [facility] [place] [facility] [address] [facility] [place] [address] Cornejo, Viral V, DO Medication Refill 5 Telephone [facility] [place] 405 [facility] [place] [address] Jameson Terrazas LPN Other 5 Refill [facility] [place] 405 [facility] [place] [address] Jameson Terrazas LPN Medication Refill 5 Telephone [facility] [place] 405 [facility] [place] [address] Sandy Chen LPN Other 5 2:00 PM EDT Office Visit [facility] [place] 405 [place] [address] Cornejo, Viral V, DO WILLIE (generalized anxiety disorder) (Primary Dx); Acute bronchitis, unspecified organism; Need for influenza vaccination; Coronary artery spasm; Yeast vaginitis 5 Refill [facility] [place] [address] [facility] [place] [address] Cornejo, Viral V, DO Medication Refill 5 Refill [facility] [place] [address] [place] [address] Cornejo, Viral V, DO Medication Refill 5 Orders Only [facility] [place] [address] [place] [address] Kathryn Chua RMA WILLIE (generalized anxiety disorder) (Primary Dx) 5 Telephone [facility] [place] [facility] [address] [facility] [place] [address] Cornejo, Viral V, DO Medication Refill 5 1:28 PM EDT - 5 11:59 PM EDT Hospital Encounter [facility] MRI [address] [place] [address] Isaac Washington MD Knee pain, acute, right; Arthritis Discharge Disposition: Home or Self Care 5 Abstract [facility] [address] [place] [address] Ermias Vásquez, HEEL SEAT FITTER MACHINE 5 Telephone [facility] [place] [facility] [address] [facility] [place] [address] Sanna Quan, RMA Medication Change 5 Refill [facility] [facility] [address] [facility] [place] [address] Cornejo, Viral V, DO Medication Refill 5 Refill [facility] [place] [facility] [address] [facility] [place] [address] Cornejo, Viral V, DO Medication Refill 5 Refill [facility] [place] [facility] 405 [facility] [place] [address] Cornejo, Viral V, DO Medication Refill 5 3:15 PM EDT - 5 11:59 PM EDT Hospital Encounter [facility] [address] [place] [address] Right knee pain Discharge Disposition: Home or Self Care 5 Orders Only [facility] [place] [facility] [address] [facility] [place] [address] Ramonita Noriega, RMA Right knee pain (Primary Dx) 5 Refill [facility] [facility] 405 [facility] [place] [address] Cornejo, Viral V, DO Medication Refill 5 Telephone [facility] [place] [facility] [address] [facility] [place] [address] Sandy Chen, CELLULAR BIOLOGIST Other 5 Refill [facility] [place] [facility] [address] [facility] [place] [address] Cornejo, Viral V, DO Medication Refill 5 Refill [facility] [address] [facility] [place] [address] Tray Jenni Griffith, RMA Medication Refill 5 2:40 PM EDT Office Visit [address] [place] [address] Cornejo, Viral V, DO Unspecified essential hypertension (Primary Dx); Gastroesophageal reflux disease without esophagitis; Osteoarthritis of left knee, unspecified osteoarthritis type; DDD (degenerative disc disease), lumbar; Morbid obesity (HCC) 5 Refill [facility] [facility] [address] [facility] [place] [address] Cornejo, Viral V, DO Medication Refill [address] [place] [address] Cornejo, Viral V, DO Medication Refill 5 Refill [facility] [address] [facility] [place] [address] Cornejo, Viral V, DO Medication Refill 5 Orders Only [facility] [address] [facility] [place] [address] Sandy Chen, CELLULAR BIOLOGIST Nausea with vomiting (Primary Dx) 5 [facility] [address] [facility] [place] [address] Sandy Chen, CELLULAR BIOLOGIST Medication Refill 5 Refill [facility] [place] [place] [address] Cornejo, Viral V, DO Medication Refill 5 [facility]phone [facility] [address] [facility] [place] [address] Cornejo, Viral V, DO Other (referral-neuro) 5 7:42 PM EDT - 5 11:59 PM EDT Hospital Encounter [facility] [place] [address] Other abnormal glucose (Primary Dx); Unspecified hypothyroidism Discharge Disposition: Home or Self Care 5 2:40 PM EDT Clinical Support [address] [address] Jenni Hernandez, RMA Elevated glucose; Unspecified hypothyroidism 5 Telephone [facility] [address] [facility] [place] [address] Sandy Chen LPN Medication Refill 5 Orders Only [facility] [address] [facility] [place] [address] Jenni Hernandez, RMA Elevated glucose (Primary Dx); Unspecified hypothyroidism 5 1:05 PM EDT - 5 11:59 PM EDT Hospital Encounter [facility] [address] [facility] [place] [address] Unspecified hypothyroidism; Routine check-up Discharge Disposition: Home or Self Care 5 Telephone [facility] [place] [facility] [address] [facility] [place] [address] Jenni Hernandez, RMA Medication Change [address] [address] Cornejo, Viral V, DO Medication Refill 5 8:38 PM EDT - 5 11:59 PM EDT Hospital Encounter [facility] [place] [address] Encounter for long-term (current) use of other medications Discharge Disposition: Home or Self Care 5 1:00 PM EDT Office Visit [facility] [address] [place] [address] Cornejo, Viral V, DO WILLIE (generalized anxiety disorder) (Primary Dx); Unspecified hypothyroidism; Routine check-up; Chest pain, unspecified; Encounter for long-term (current) use of other medications; HTN (hypertension); Migraine; Morbid obesity (HCC); Esophageal reflux; Fibromyalgia 5 Telephone [facility] [place] [facility] [address] [facility] [place] [address] Cornejo, Viral V, DO Other 5 Telephone [facility] [place] [facility] [address] [place] [address] Sandy Chen LPN Medication Refill 5 12:48 PM EST - 5 11:59 PM EST Hospital Encounter [facility] MRI [address] [place] [address] Rajesh Roca MD Thoracic or lumbosacral neuritis or radiculitis, unspecified Discharge Disposition: Home or Self Care 5 Refill [facility] [place] [address] [address] Cornejo, Viral V, DO Medication Refill 5 3:20 PM EST Office Visit [facility] [place] [address] [place] [address] Cornejo, Viral V, DO WILLIE (generalized anxiety disorder) (Primary Dx); Vertigo; HTN (hypertension); Rib pain on right side 5 Refill [facility] [place] [facility] [address] [place] [address] Cornejo, Viral V, DO Medication Refill 5 Refill [facility] [place] [facility] [address] [facility] [place] [address] Cornejo, Viral V, DO Medication Refill 5 1:15 PM EST - 5 11:59 PM EST Hospital Encounter [facility] [address] [place] [address] Cornejo, Viral V, DO Breast calcification, right Discharge Disposition: Home or Self Care 4 Telephone [facility] [place] [facility] 405 [facility] [place] [address] Sandy Chen LPN Medication Refill 4 Orders Only [facility] [place] [facility] [address] [facility] [place] [address] Tesha Ramon Scribe Fibromyalgia (Primary Dx); Sleep deprivation 4 Telephone [facility] Mammography [address] [place] [address] Rosio Head RN Abnormal Radiology 4 Orders Only [facility] [place] [facility] [address] [facility] [place] [address] Cornejo, Viral V, DO Osteoarthritis of left knee (Primary Dx) 4 Orders Only [facility] [place] [facility] [address] [facility] [place] [address] Cornejo, Viral V, DO Osteoarthritis of knee (Primary Dx); Abnormal mammogram 4 2:17 PM EST - 4 11:59 PM EST Hospital Encounter [facility] [address] [place] [address] Cornejo, Viral V, DO Left arm pain; Knee pain, acute, unspecified laterality Discharge Disposition: Home or Self Care 4 2:15 PM EST - 4 2:16 PM EST Hospital Encounter [facility] Mammography [address] [place] [address] Cornejo, Viral V, DO Other screening mammogram Discharge Disposition: Home or Self Care 4 Orders Only [facility] [place] [facility] [address] [facility] [place] [address] Jameson Terrazas LPN Knee pain, acute, unspecified laterality (Primary Dx) 4 Patient Outreach [facility] [place] [facility] [address] [facility] [place] [address] Dennise Arboleda Advice Only 4 Refill [facility] [place] [facility] [address] [place] [address] Jameson Terrazas LPN Other 4 1:10 PM EST Office Visit [facility] [place] [facility] [address] [place] [address] Cornejo, Viral V, DO WILLIE (generalized anxiety disorder) (Primary Dx); Migraine; Bilateral lower abdominal cramping; GERD (gastroesophageal reflux disease); Dysphagia; DDD (degenerative disc disease); Left arm pain 4 Telephone [facility] [place] [facility] [address] [place] [address] Jenni Hernandez, RMA Migraine 4 Telephone [facility] [place] [facility] [address] [email or web address] [address] Jameson Terrazas LPN Medication Refill 4 Telephone [facility] [place] [facility] [address] [facility] [place] [address] Sandy Chen LPN Other 4 Telephone [facility] [place] [facility] [address] [email or web address] [address] Jameson Terrazas LPN Other 4 8:21 PM EDT - 4 11:59 PM EDT Hospital Encounter [facility] [place] [address] Malar rash; Postmenopausal Discharge Disposition: Home or Self Care 4 1:50 PM EDT Office Visit [facility] [place] [facility] [address] [facility] [place] [address] Cornejo, Viral V, DO Malar rash (Primary Dx); UTI (lower urinary tract infection); Flank pain; Need for prophylactic vaccination and inoculation against influenza; WILLIE (generalized anxiety disorder); Migraine; Postmenopausal 4 Refill [facility] [place] [facility] [address] [place] [address] Cornejo, Viral V, DO Medication Refill 4 Telephone [facility] [place] [facility] [address] [email or web address] [address] Sandy Chen, CELLULAR BIOLOGIST Other 4 Telephone [facility] [place] [facility] [address] [place] [address] Cornejo, Viral V, DO Other (referral-Dr Shankar) 4 Telephone [facility] [place] [facility] [address] [place] [address] Den Kingston MA Other 4 Refill [facility] [place] [facility] [address] [place] [address] Jenni Feliz, RMA Other 4 Telephone [facility] [place] [facility] [address] [place] [address] Jameson Terrazas, CELLULAR BIOLOGIST Medication Refill 4 Telephone [facility] [place] [facility] [address] [place] [address] Den Kingston MA Medication Refill 4 Telephone [facility] [place] [facility] [address] [place] [address] Jameson Terrazas LPN Other 4 Telephone [facility] [place] [facility] [address] [place] [address] Jameson Terrazas, CELLULAR BIOLOGIST Other 4 Refill [facility] [place] [facility] [address] [place] [address] Jameson Terrazas, CELLULAR BIOLOGIST Medication Refill 4 1:10 PM EDT Office Visit [facility] [place] [facility] [address] [place] [address] Cornejo, Viral V, DO Type II or unspecified type diabetes mellitus without mention of complication, not stated as uncontrolled (HCC) (Primary Dx); WILLIE (generalized anxiety disorder); UTI (urinary tract infection); Urgency of urination; GERD (gastroesophageal reflux disease) 4 Telephone [facility] [place] [facility] [address] [place] [address] NoriegaRamonita casas, RMA Other 4 Telephone [facility] [place] [facility] [address] [place] [address] Ramonita Noriega, RMA Medication Refill 4 Telephone [facility] [place] [facility] [address] [place] [address] Jenni Hernandez, RMA Medication Management 4 3:50 PM EDT - 4 11:59 PM EDT Hospital Encounter [facility] [address] [place] [address] Acute renal insufficiency (Primary Dx) Discharge Disposition: Home or Self Care 4 2:40 PM EDT Office Visit [facility] [place] [address] [address] Cornejo, Viral V, DO WILLIE (generalized anxiety disorder) (Primary Dx); HTN (hypertension); Acute renal insufficiency; Unspecified hypothyroidism; Fibromyalgia; GERD (gastroesophageal reflux disease); IBS (irritable bowel syndrome); Abdominal pain, other specified site; Dysuria; UTI (lower urinary tract infection) 4 1:46 AM EDT - 4 1:35 PM EDT Hospital Encounter [facility] [address] [place] [address] [place] [address] Nisa [place] MD Acute renal insufficiency (Primary Dx); Chest pain, unspecified; Chronic pain; Fibromyalgia; Type II or unspecified type diabetes mellitus without mention of complication, not stated as uncontrolled (HCC); Unspecified essential hypertension; Unspecified hypothyroidism Discharge Disposition: Home or Self Care 4 9:50 PM EDT - 4 12:58 AM EDT Emergency [facility] [address] [facility] [place] [address] Jared James MD Chest pain (Primary Dx); Chronic pain Discharge Disposition: Short Term Hospital 4 Telephone [facility] [place] [facility] [address] [place] [address] Cornejo, Viral V, DO Referral 4 Telephone [facility] [place] [facility] [address] [place] [address] Sandy Chen LPN Other 4 7:31 PM EDT - 4 11:59 PM EDT Hospital Encounter [facility] [place] [address] Type II or unspecified type diabetes mellitus without mention of complication, not stated as uncontrolled (HCC); Pruritic rash; Unspecified hypothyroidism Discharge Disposition: Home or Self Care 4 4:50 PM EDT Office Visit [facility] [place] [facility] [address] [place] [address] Cornejo, Viral V, DO Type II or unspecified type diabetes mellitus without mention of complication, not stated as uncontrolled (HCC) (Primary Dx); UTI (urinary tract infection); Other screening mammogram; Pruritic rash; Unspecified hypothyroidism 4 Telephone [facility] [address] [facility] [address] [place] [address] Kristopher Crump MD Other 4 5:07 PM EDT - 4 6:36 PM EDT Emergency [facility] [address] [facility] [place] [address] Dania Lovell MD Heel spur (Primary Dx) Discharge Disposition: Home or Self Care 4 Refill [facility] [place] [facility] [address] [facility] [place] [address] Jameson Terrazas LPN Other 4 Refill [facility] [place] [facility] [address] [place] [address] Cornejo, Viral V, DO Medication Refill 4 3:26 PM EST - 4 5:11 PM EST Emergency [facility] [address] [facility] [place] [address] Debbie Figueroa MD Migraine headache (Primary Dx) Discharge Disposition: Home or Self Care 4 Telephone [facility] [place] [facility] [address] [place] [address] Cornejo, Viral V, DO Other 4 Telephone [facility] [place] [facility] [address] [place] [address] Sandy Chen LPN Other 4 4:00 PM EST Office Visit [facility] [place] [facility] [address] [place] [address] Cornejo, Viral V, DO WILLIE (generalized anxiety disorder) (Primary Dx); Nausea with vomiting; Encounter for long-term (current) use of other medications; Unspecified essential hypertension; Unspecified hypothyroidism 4 Telephone [facility] [place] [facility] [address] [place] [address] Jenni Hernandez RMA Anxiety 4 Refill [facility] [place] [facility] [address] [place] [address] Jameson Terrazas, CELLULAR BIOLOGIST Medication Refill 3 Telephone [facility] [place] [facility] [address] [place] [address] Jameson Terrazas LPN Other 3 Telephone [facility] [place] [facility] [address] [place] [address] Ramonita Noriega Karen Other 3 Telephone [facility] [address] [place] [address] Nasim Medeiros MD Other 3 Telephone [facility] [place] [facility] [address] [place] [address] Cornejo, Viral V, DO Other 3 Orders Only [facility] [place] [facility] [address] [place] [address] Sandy Chen LPN ZENG (headache) (Primary Dx) 3 Refill [facility] [place] [facility] [address] [place] [address] Cornejo, Viral V, DO Medication Refill 3 3:28 PM EST - 3 11:59 PM EST Hospital Encounter [facility] [address] [place] [address] Kristopher Crump MD Syncope; Type II or unspecified type diabetes mellitus without mention of complication, not stated as uncontrolled (HCC); Unspecified essential hypertension; Chest pain, unspecified Discharge Disposition: Home or Self Care 3 2:34 PM EST - 3 3:27 PM EST Hospital Encounter [facility] [address] [place] [address] Cornejo, Viral V, DO DDD (degenerative disc disease); Lumbar strain Discharge Disposition: Home or Self Care 3 1:45 PM EST Office Visit [facility] [place] [address] [place] [address] Kristopher Crump MD Syncope (Primary Dx); Type II or unspecified type diabetes mellitus without mention of complication, not stated as uncontrolled (HCC); Unspecified essential hypertension; Chest pain, unspecified 3 1:30 PM EST Office Visit [facility] [place] [facility] [address] [place] [address] Cornejo, Viral V, DO WILLIE (generalized anxiety disorder) (Primary Dx); Urgency of urination; DDD (degenerative disc disease); Lumbar strain; Sinusitis; OM (otitis media); Foot pain 3 Telephone [facility] [place] [facility] [address] [place] [address] Sandy Chen LPN Medication Refill 3 Refill [facility] [place] [facility] [address] [facility] [place] [address] Jameson Terrazas LPN Medication Refill 3 Refill [facility] [place] [facility] [address] [facility] [place] [address] Jenni Feliz, RMA Other 3 Refill [facility] [place] [facility] [address] [place] [address] Jenni Feliz, RMA Medication Refill 3 Orders Only [facility] [place] [facility] [address] [place] [address] Sandy Chen LPN HTN (hypertension) (Primary Dx) 3 Telephone [facility] [place] [address] [place] [address] Kristopher Crump MD Other 3 Telephone [facility] [place] [facility] [address] [place] [address] Sandy Chen LPN Other 3 Abstract [facility] [place] [facility] [address] [place] [address] Sacha Keller MD 3 Refill [facility] [place] [facility] [address] [place] [address] Jameson Terrazas LPN Other 3 Refill [facility] [place] [facility] [address] [place] [address] Jenni Feliz, RMA Medication Refill 3 11:00 AM EDT Office Visit [facility] [address] [place] [address] Nasim Medeiros MD Syncope (Primary Dx); Borderline diabetes mellitus; Obesity 3 Orders Only [facility] [place] [facility] [address] [place] [address] Jenni Feliz, RMA Unspecified hypothyroidism (Primary Dx) 3 12:16 PM EDT - 3 11:59 PM EDT Hospital Encounter [facility] MRI [address] [place] [address] Cornejo, Viral V, DO Syncopal episodes Discharge Disposition: Home or Self Care 3 12:15 PM EDT Hospital Encounter [facility] [address] [place] [address] Cornejo, Viral V, DO Syncopal episodes Discharge Disposition: Home or Self Care 3 12:15 PM EDT Hospital Encounter [facility] [address] [place] [address] Cornejo, Viral V, DO Syncopal episodes Discharge Disposition: Home or Self Care 3 Orders Only [facility] [place] [facility] [address] [place] [address] Jenni Hernandez RMA Gout (Primary Dx); Esophageal reflux; Unspecified hypothyroidism 3 7:26 PM EDT - 3 11:59 PM EDT Hospital Encounter [facility] [address] [place], [place] [id number] Syncopal episodes; Unspecified essential hypertension Discharge Disposition: Home or Self Care 3 1:30 PM EDT Office Visit [facility] [place] [address] [place] [address] Cornejo, Viral V, DO Syncopal episodes (Primary Dx); Need for influenza vaccination; Labyrinthitis, unspecified; Unspecified essential hypertension; WILLIE (generalized anxiety disorder); Dysuria; UTI (lower urinary tract infection) 3 Telephone [facility] [place] [facility] [address] [place] [address] BeachTalatunita, CELLULAR BIOLOGIST Medication Refill 3 Telephone [facility] [place] [facility] [address] [place] [address] Mk, Talatunita, CELLULAR BIOLOGIST Medication Refill 3 Orders Only [facility] [place] [facility] [address] [place] [address] Jenni Hernandez RMA Thrush (Primary Dx) 3 Telephone [facility] [place] [facility] [address] [place] [address] MkTalatJASIEL prince Other 3 Telephone [facility] [place] [facility] [address] [place] [address] MkTalatsuresh, JASIEL Medication Refill 3 Telephone [facility] [place] [facility] [address] [place] [address] MkTalatangelicaoswaldJASIEL Other 3 Telephone [facility] [place] [facility] [address] [place] [address] MkTalatsuresh, JASIEL Other 3 Refill [facility] [place] [facility] [address] [place] [address] Ar Vaca MD Medication Refill 3 Refill [facility] [place] [facility] [address] [place] [address] Cornejo, Viral V, DO Medication Refill 3 Refill [facility] [place] [facility] [address] [place] [address] Ar Vaca MD Medication Refill 3 Telephone [facility] [place] [facility] [address] [place] [address] MkTalatJASIEL prince Other 3 11:49 AM EDT - 3 11:59 PM EDT Hospital Encounter [facility] [address] [place] [address] Dysuria (Primary Dx); Type II [...] Home or Self Care 3 Refill [facility] [place] [facility] [address] [place] [address] Ar Vaca MD Medication Refill 3 4:10 PM EDT Office Visit [facility] [place] [facility] [address] [place] [address] Cornejo, Viral V, DO Unspecified essential hypertension (Primary Dx); Dysuria; UTI (lower urinary tract infection); Atypical mole; ZENG (headache); Diabetes mellitus type 2, controlled ([facility]) 3 Telephone [facility] [place] [facility] [address] [place] [address] Sandy Chen LPN Other 3 Telephone [facility] [place] [facility] [address] [place] [address] Jameson Terrazas LPN Other 3 Telephone [facility] [place] [address] [place] [address] Jameson Terrazas LPN Other 3 7:53 PM EDT - 3 11:59 PM EDT Hospital Encounter [facility] [address] 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 [address] Abdominal pain; RUQ abdominal pain; Unspecified hypothyroidism Discharge Disposition: Home or Self Care 3 1:30 PM EDT Office Visit [facility] [place] [address] Ar Vaca MD Fibromyalgia (Primary Dx); WILLIE (generalized anxiety disorder); Abdominal pain; Unspecified hypothyroidism; RUQ abdominal pain; UTI (lower urinary tract infection); Vaginal yeast infection 3 [facility] [address] [facility] [place] [address] Ar Vaca MD Medication Refill (Rx Right source ) 3 Telephone [facility] [facility] [address] [place] [address] Sandy Chen LPN Medication Refill 3 Orders Only [address] [place] [address] Sandy Chen LPN Unspecified hypothyroidism (Primary Dx) 3 7:16 PM EDT - 3 11:59 PM EDT Hospital Encounter [facility] VALERIO PROCESSING [facility] [place] [address] Hypothyroidism Discharge Disposition: Home or Self Care 3 4:50 PM EDT Office Visit [address] [address] Cornejo, Viral V, DO Hypothyroidism (Primary Dx); DDD (degenerative disc disease); Low back pain; Insomnia 3 [facility] [address] [facility] [place] [address] Jenni Hernandez RMA Gout (Primary Dx) 3 Orders Only [facility] [place] [facility] [address] [facility] [place] [address] Amanda Espinoza RMA Esophageal reflux (Primary Dx) 3 Telephone [facility] [place] [facility] [address] [place] [address] Jameson Terrazas LPN Other; Visit Follow Up 3 Refill [facility] [place] [facility] [address] [place] [address] Ar Vaca MD Medication Refill 3 2:40 PM EDT Office Visit [facility] [place] [facility] [address] [place] [address] Karen Gonzalez MD Flu syndrome (Primary Dx); Fever 3 Telephone [facility] [place] [address] [place] [address] Ramonita Noriega, Karen Other 3 Telephone [facility] [place] [facility] [address] [place] [address] Ramonita Noriega, A Medication Refill 3 Telephone [facility] [place] [facility] [address] [place] [address] Sandy Chen LPN Other 3 Telephone [facility] [place] [facility] [address] [place] [address] Jameson Terrazas LPN Other 3 Telephone [facility] [place] [facility] [address] [place] [address] Amanda Espinoza, A Other 3 3:30 PM EST Office Visit [facility] [place] [facility] [address] [place] [address] Ar Vaca MD Acute otitis media, bilateral (Primary Dx); Unspecified essential hypertension; Seasonal allergies; Vaginal yeast infection 2 Refill [facility] [place] [facility] [address] [place] [address] Ar Vaca MD Medication Refill 2 11:10 AM EST Office Visit [facility] [place] [facility] [address] [place] [address] Ar Vaca MD WILLIE (generalized anxiety disorder); Fibromyalgia; Nausea with vomiting; Encounter for long-term (current) use of other medications 2 Refill [facility] [place] [facility] [address] [facility] [place] [address] Ar Vaca MD Medication Refill 2 Telephone [facility] [place] [address] [facility] [place] [address] Den Kingston MA Vaginitis 2 Telephone [facility] [place] [facility] [address] [facility] [place] [address] Amanda Espinoza Karen Other 2 Telephone [facility] [address] [facility] [place] [address] Ar Vaca MD Medication Refill 2 Refill [facility] [place] [address] [place] [place] [address] Ar Vaca MD Medication Refill 2 11:00 AM EDT Office Visit [facility] [address] [address] Harshil Sanchez MD Abdominal pain (Primary Dx) 2 Refill [facility] [place] [address] [facility] [place] [address] Jameson Terrazas LPN Other 2 8:11 PM EDT - 2 11:59 PM EDT Hospital Encounter [facility] LAB VALERIO PROCESSING [facility] [place] [address] Unspecified essential hypertension; Perimenopausal symptoms; Hyperglycemia; Hypothyroid; Vitamin D deficiency; Abnormal laboratory test result Discharge Disposition: Home or Self Care 2 2:20 PM EDT Office Visit [facility] [place] [address] [facility] [place] [address] Ar Vaca MD Hypothyroid (Primary Dx); WILLIE (generalized anxiety disorder); Flu vaccine need; Unspecified essential hypertension; Vitamin D deficiency; Hyperglycemia; Perimenopausal symptoms 2 Refill [facility] [facility] [address] [facility] [place] [address] Ar Vaca MD Medication Refill 2 10:23 AM EDT - 2 11:59 PM EDT Hospital Encounter [address] [place], [place] [address] Harshil Sanchez MD RUQ pain Discharge Disposition: Home or Self Care 2 Orders Only [facility] [place] [address] [facility] [place] [address] Ramonita Noriega, JANELLEA Esophageal reflux; Hypothyroid 2 Refill [facility] [place] [address] [place] [place] [address] Ar Vaca MD Medication Refill 2 3:00 PM EDT Office Visit [facility] [address] [place] [address] Harshil Sanchez MD RUQ pain (Primary Dx) 2 Orders Only [facility] [place] [address] [facility] [place] [address] Ar Vaca MD UTI (lower urinary tract infection); Vaginal yeast infection 2 Telephone [facility] [place] [facility] [address] [facility] [place] [address] Sandy Chen LPN Results 2 Refill [facility] [facility] [address] [facility] [place] [address] Ar Vaca MD Medication Refill 2 5:11 PM EDT - 2 6:59 PM EDT Emergency [facility] [address] [place] [id number] Hilary Quinonez MD Abdominal pain, right upper quadrant; Type II or unspecified type diabetes mellitus without mention of complication, not stated as uncontrolled (HCC) Discharge Disposition: Home or Self Care 2 Refill [facility] [facility] [address] [facility] [place] [address] Ar Vaca MD Medication Refill 2 Refill [facility] [place] [address] [place] [place] [address] Ar Vaca MD Medication Refill 2 Refill [facility] [place] [place] [address] Ar Vaca MD Medication Refill 2 Telephone [facility] [address] Ar Vaca MD Medication Refill 2 Refill [facility] [place] [place] [address] Ar Vaca MD Medication Refill 2 [facility]phone [facility] [place] [address] Snady Chen LPN Medication Refill 2 5:20 PM EDT Office Visit [facility] [place] [address] Ar Vaca MD Esophageal reflux; WILLIE (generalized anxiety disorder); Unspecified essential hypertension; Unspecified hypothyroidism; Health maintenance examination 2 Refill [facility] [place] [address] [address] Ar Vaca MD Medication Refill 2 Telephone [facility] [address] Ar Vaca MD Other 2 1:49 PM EDT - 2 11:59 PM EDT Hospital Encounter [facility] MRI [address] [place] [address] Ar Vaca MD Lumbago Discharge Disposition: Home or Self Care 2 Telephone [facility] [facility] [address] [place] [address] Ar Vaca MD Other 2 Telephone [facility] [place] [facility] [address] [place] [address] Lora Domínguez RMA Medication Refill 2 Refill [facility] [facility] [address] [place] [address] Ar Vaca MD Medication Refill 2 Orders Only [facility] [place] [facility] [address] [place] [address] Ar Vaca MD Lumbago (Primary Dx) 2 Telephone [facility] [place] [facility] [address] [place] [address] Jameson Terrazas LPN Other 2 2:28 PM EDT - 2 3:52 PM EDT Emergency [facility] [address] [place] [address] Dania Loving, DO Degenerative disc disease Discharge Disposition: Home or Self Care 2 Telephone [facility] [place] [facility] [address] [place] [address] Lora Domínguez RMA Other 2 Telephone [facility] [facility] [address] [place] [address] Lora Domínguez RMA Other 2 Telephone [facility] [place] [facility] [address] [place] [address] Ar Vaca MD Referral 2 Telephone [facility] [place] [facility] [address] [place] [address] Jameson Terrazas LPN Medication Refill 2 Orders Only [facility] [place] [facility] [address] [place] [address] Ar Vaca MD Left knee DJD (Primary Dx); Fibromyalgia; ZENG (headache) 2 Orders Only [facility] [place] [facility] [address] [place] [address] Mckayla Roach MA Thrush (Primary Dx) 2 Telephone [facility] [place] [facility] [address] [place] [address] Sandy Chen LPN Other 2 2:30 PM EST Office Visit [facility] [facility] [address] [place] [address] Ar Vaca MD Left knee DJD (Primary Dx); Fibromyalgia; WILLIE (generalized anxiety disorder); Obesity; Closed head injury; Chest wall contusion; ZENG (headache) 2 Telephone [facility] [place] [facility] [address] [place] [address] Ar Vaca MD Fall 2 Telephone [facility] [place] [facility] [address] [place] [address] Lora Domínguez, Karen Other 2 Telephone [facility] [place] [facility] [address] [place] [address] Ar Vaca MD Medication Management 2 1:50 PM EST Office Visit [facility] [place] [facility] [address] [place] [address] Ar Vaca MD Left knee DJD (Primary Dx); Migraine; Fibromyalgia; WILLIE (generalized anxiety disorder) 2 Telephone [facility] [place] [facility] [address] [place] [address] Lora Domínguezye, A Other 2 Telephone [facility] [place] [facility] [address] [place] [address] Lora Domínguez, A Other 2 Refill [facility] [place] [facility] [address] [place] [address] Ar Vaca MD Medication Refill 2 10:45 AM EST - 2 11:30 AM EST Surgery [facility] ENDOSCOPY [address] [place] [address] Cathleen Das ESOPHAGOGASTRODUODENOSCOPY 2 9:10 AM EST - 2 11:35 AM EST Hospital Encounter [facility] ENDOSCOPY [address] [place] [address] Cathleen Das Discharge Disposition: Home or Self Care 2 Telephone [facility] [place] [facility] [address] [place] [address] Lora Domínguezye, A Other 2 Refill [facility] [place] [facility] [address] [facility] [place] [address] Cornejo, Viral V, DO Medication Refill 2 Refill [facility] [place] [facility] [address] [facility] [place] [address] Ar Vaca MD Medication Refill 1 Telephone [facility] [place] [facility] [address] [place] [address] Sandy Chen LPN Other 1 Telephone [facility] [place] [facility] [address] [facility] [place] [address] Ar Vaca MD Other 1 1:51 PM EST - 1 11:59 PM EST Hospital Encounter [facility] [address] [place] [address] Ar Vaca MD Recurrent sinusitis Discharge Disposition: Home or Self Care 1 2:50 PM EST Office Visit [facility] [place] [facility] [address] [place] [address] Ar Vaca MD Left knee DJD (Primary Dx); Migraine; Fibromyalgia; Recurrent sinusitis 1 Telephone [facility] [place] [facility] [address] [place] [address] Ada Antunez MA Other 1 Telephone [facility] [place] [facility] [address] [place] [address] Ar Vaca MD Medication Refill 1 1:23 PM EST - 1 11:59 PM EST Hospital Encounter [facility] Mammography [address] [place] [address] Ar Vaca MD Other screening mammogram Discharge Disposition: Home or Self Care 1 Telephone [facility] [place] [facility] [address] [place] [address] Ada Antunez MA Other 1 1:30 PM EDT Office Visit [facility] [place] [facility] [address] [place] [address] Ar Vaca MD Abdominal pain (Primary Dx); Urgency of urination; Needs flu shot; Weight loss, unintentional; Nausea with vomiting 1 Telephone [facility] [place] [facility] [address] [place] [address] Ar Vaca MD Other 1 Telephone [facility] [place] [facility] [address] [facility] [place] [address] Ar Vaca MD Medication Management (verify directions on Allopurinol) 1 Telephone [facility] [place] [facility] [address] [place] [address] Gabbie Morris MA Medication Refill 1 3:39 PM EDT - 1 7:48 PM EDT Emergency [facility] [place] [address] Efrem Hampton MD Abdominal pain, generalized Discharge Disposition: Home or Self Care 1 Telephone [facility] [place] [facility] [address] [facility] [place] [address] Mckayla Roach MA Medication Refill 1 Telephone [facility] [place] [facility] [address] [facility] [place] [address] Gabbie Morris MA Medication Refill 1 Refill [facility] [place] [address] [facility] [place] [address] Ar Vaca MD Medication Refill 1 Telephone [facility] [place] [address] [address] Lora Domínguez RMA Medication Refill 1 8:36 PM EDT - 1 11:59 PM EDT Hospital Encounter [facility] LAB VALERIO PROCESSING [facility] [place] [address] Acute sinusitis; Nausea & vomiting; Weight loss Discharge Disposition: Home or Self Care 1 Telephone [facility] [place] [address] [place] [address] Ar Vaca MD Referral 1 11:20 AM EDT Office Visit [facility] [facility] [address] [place] [address] Ar Vaca MD Migraine; Fibromyalgia; WILLIE (generalized anxiety disorder); Acute sinusitis; Weight loss; Nausea & vomiting; Nausea with vomiting 1 Refill [facility] [place] [facility] [address] [facility] [place] [address] Ar Vaca MD Medication Refill 1 Refill [facility] [place] [facility] [address] [place] [address] Jameson Terrazas, CELLULAR BIOLOGIST Medication Refill 1 Refill [facility] [place] [facility] [address] [place] [address] Ar Vaca MD Medication Refill 1 Refill [facility] [place] [facility] [address] [place] [address] Jameson Terrazas, CELLULAR BIOLOGIST Medication Refill 1 Telephone [facility] [place] [address] [place] [address] Alma Ornelas LPN Medication Refill 1 Refill [facility] [place] [address] [place] [address] Ar Vaca MD Medication Refill 1 2:00 PM EDT Office Visit [facility] [facility] [address] [place] [address] Ar Vaca MD Migraine; Fibromyalgia; Nausea with vomiting; Hypothyroid; Dependent edema 1 Refill [facility] [place] [facility] [address] [place] [address] Ar Vaca MD Medication Refill 1 Telephone [facility] [place] [facility] [address] [place] [address] Ada Antunez MA Other 1 Telephone [facility] [place] [address] [place] [address] Lora Domínguez RMA Medication Refill 1 2:20 PM EDT Clinical Support [facility] [place] [facility] [address] [place] [address] Melia Love MA Abdominal pain, other specified site (Primary Dx) 1 Refill [facility] [place] [address] [place] [address] Mckayla Roach MA Medication Refill [address] [place] [address] Ar Vaca MD Medication Refill [address] [place] [address] Ar Vaca MD Medication Refill 1 Refill [facility] [address] [facility] [place] [address] Cornejo, Viral V, DO Medication Refill 1 Refill [facility] [address] [facility] [place] [address] Ar Vaca MD Medication Refill [address] [address] Ar Vaca MD Medication Refill 1 8:11 PM EDT - 1 11:59 PM EDT Hospital Encounter [facility] LAB VALERIO PROCESSING [facility] [place] [address] Unspecified labyrinthitis Discharge Disposition: Home or Self Care 1 2:50 PM EDT Clinical Support [address] [place] [address] Mckayla Roach MA Unspecified labyrinthitis (Primary Dx) 1 Orders Only [facility] [address] [place] [address] Ar Vaca MD ZENG (headache) (Primary Dx); FHx: osteopenia 1 Refill [facility] [address] [facility] [place] [address] Ar Vaca MD Medication Refill 1 2:00 PM EDT Office Visit [facility] [place] [facility] [address] [place] [address] Cornejo, Viral V, DO Migraine; Fibromyalgia; Anxiety; Nausea with vomiting; Acute pharyngitis; Acute sinusitis; Rash 1 9:13 AM EDT - 1 12:58 PM EDT Emergency [facility] [address] [place] [address] Della Perez MD Chest pain; Post concussive syndrome; Post-traumatic headache, unspecified Discharge Disposition: Home or Self Care 1 Telephone [facility] [place] [facility] [address] [facility] [place] [address] Melia Love MA Other 1 Telephone [facility] [place] [facility] [address] [facility] [place] [address] Gabbie Morris MA Other 1 3:30 PM EDT - 1 11:59 PM EDT Hospital Encounter [facility] X[facility] [address] [place] [address] Foot pain Discharge Disposition: Home or Self Care 1 Telephone [facility] [facility] [address] [facility] [place] [address] Sandy Chen LPN Other 1 Telephone [facility] [place] [facility] [address] [place] [address] Sandy Chen LPN Medication Refill 1 2:57 PM EDT - 1 3:29 PM EDT Hospital Encounter [facility]EX[facility] [address] [place] [address] Ar Vaca MD Loss of height; Symptomatic menopausal or female climacteric states Discharge Disposition: Home or Self Care 1 2:25 PM EDT - 1 4:06 PM EDT Emergency [facility] [address] 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 ) 1 Telephone [facility] [place] [facility] [address] [place] [address] Gabbie Morris MA Other 1 3:00 PM EST Office Visit [facility] [place] [facility] [address] [place] [address] Ar Vaca MD Fibromyalgia (Primary Dx); Migraine; Anxiety; Nausea with vomiting 1 Telephone [facility] [place] [facility] [address] [place] [address] Dennise Arboleda Medication Refill (duplicate from 09/01/10) 1 Telephone [facility] [place] [facility] [address] [place] [address] Dennise Arboleda Medication Refill 1 Telephone [facility] [place] [facility] [address] [place] [address] Scarlett Cee R Results 1 2:27 PM EST - 1 11:59 PM EST Hospital Encounter [facility] LAB VALERIO PROCESSING [facility] [place] [address] Ar Vaca MD Unspecified essential hypertension; Unspecified hypothyroidism Discharge Disposition: Home or Self Care 1 1:40 PM EST Office Visit [facility] [place] [facility] [address] [place] [address] Ar Vaca MD Fibromyalgia (Primary Dx); Migraine; Hypothyroid; Esophageal reflux; Unspecified essential hypertension; Acute sinusitis 0 Refill [facility] [place] [facility] [address] [place] [address] Ar Vaca MD Medication Refill 0 3:00 PM EST Office Visit [facility] [place] [facility] [address] [place] [address] Ar Vaca MD Fibromyalgia (Primary Dx); Migraine; Dizziness; Acute sinusitis 0 Refill [facility] [place] [facility] [address] [place] [address] Zbigniew Multani MD Medication Refill 0 Refill [facility] [place] [facility] [address] [place] [address] Ar Vaca MD Medication Refill 0 Telephone [facility] [place] [facility] [address] [place] [address] Alma Ornelas LPN Medication Refill 0 Refill [facility] [place] [facility] [address] [facility] [place] [address] Zbigniew Multani MD Medication Refill 0 Telephone [facility] [place] [facility] [address] [place] [address] Mckayla Roach MA Dizziness 0 Telephone [facility] [place] [facility] [address] [place] [address] Lora Domínguez RMA Medication Refill 0 Telephone [facility] [place] [facility] [address] [place] [address] Dennise Arboleda Results 0 Telephone [facility] [place] [facility] [address] [facility] [place] [address] Georgette Thompson Other 0 Telephone [facility] [facility] [address] [facility] [place] [address] ChetanAmanda daugherty RMA Results 0 8:54 AM EST - 0 11:59 PM EST Hospital Encounter [facility] [address] [place] [address] Ar Vaca MD Syncope Discharge Disposition: Home or Self Care 0 8:54 AM EST - 0 11:59 PM EST Hospital Encounter [facility] MRI [address] [place] [address] Ar Vaca MD Syncope Discharge Disposition: Home or Self Care 0 8:54 AM EST - 0 11:59 PM EST Hospital Encounter [facility] Ultrasound [address] [place] [address] Ar Vaca MD Syncope Discharge Disposition: Home or Self Care 0 9:00 AM EDT - 0 11:59 PM EDT Hospital Encounter [facility] LAB VALERIO PROCESSING [facility] [address] [place], [place] [id number] Ar Vaca MD Unspecified essential hypertension; Unspecified hypothyroidism Discharge Disposition: Home or Self Care 0 Telephone [facility] [place] [facility] [address] [facility] [place] [address] Mckayla Roach MA Other 0 8:50 AM EDT Clinical Support [facility] [place] [facility] [address] [facility] [place] [address] Scarlett Cee Unspecified essential hypertension; Unspecified hypothyroidism 0 Telephone [facility] [place] [facility] [address] [facility] [place] [address] Sandy Chen LPN Other 0 Telephone [facility] [place] [address] [facility] [place] [address] Georgette Thompson Other 0 2:00 PM EDT Office Visit [facility] [place] [address] [facility] [place] [address] Ar Vaca MD Syncope (Primary Dx); Need for prophylactic vaccination and inoculation against influenza 0 Telephone [facility] [place] [address] [facility] [place] [address] TalonSarah howarda Medication Refill 0 Telephone [facility] [place] [facility] [address] [facility] [place] [address] Sandy Chen LPN Medication Refill 0 Telephone [facility] [place] [facility] [address] [facility] [place] [address] Gabbie Morirs MA Other 0 1:12 AM EDT - 0 6:55 PM EDT Hospital Encounter EDG MICU [facility] [place] [address] Theo Vazquez MD [facility] 0 6:44 PM EDT - 0 1:01 AM EDT Emergency [facility] [address] [place] [address] Gabby Capone MD Sower, David H, MD Suicidal ideation; Overdose; Depression; Poisoning by benzodiazepine-based tranquilizers Discharge Disposition: Admitted as an Inpatient 0 1:00 PM EDT Office Visit [facility] [place] [facility] [address] [facility] [place] [address] Ar Vaca MD HTN (hypertension) (Primary Dx); Hypothyroid; DDD (degenerative disc disease), lumbar; WILLIE (generalized anxiety disorder); Migraine; Anxiety 0 Abstract [facility] [place] [address] [facility] [place] [address] Ar Vaca MD 0 Abstract [facility] [address] [place] [address] Ar Vaca MD Nervousness; Nausea with vomiting; Unspecified chest pain; Unspecified labyrinthitis; Esophageal reflux; Unspecified essential hypertension; Unspecified hypothyroidism 0 1:28 PM EDT - 0 2:31 PM EDT Emergency [facility] GRT Michael Stone MD 0 6:10 AM EDT - 0 12:05 PM EDT Hospital Encounter [facility] Efrem Zimmerman MD 0 12:01 AM EDT - 0 [...] PM EDT Hospital Encounter [facility] RADIOLOGY GRT Ildfeonso Horta MD 9 5:02 PM EDT - 9 11:59 PM EDT Hospital Encounter [facility] LAB EDG Sacha Keller MD 9 5:37 AM EDT - 9 9:30 AM EDT Hospital Encounter [facility] CCR Kristopher Crump MD 9 1:45 PM EDT - 9 11:59 PM EDT Hospital Encounter [facility] GC SPEC SVC GRKristopher Whalen MD 9 10:43 AM EDT - 9 4:10 PM EDT Hospital Encounter [facility] GC SPEC SVC GRT Kristopher Crump MD 9 4:30 PM EDT [...] PM EDT Hospital Encounter [facility] LAB EDG Cornejo, Viral V, DO 8 12:57 PM EDT [...] PM EDT Hospital Encounter [facility] LAB EDG Clemente, Jose V, DO 7 3:47 PM EDT - [...] HST RADIOLOGY TIRSOT Ar Vaca MD 4 10:30 AM EDT [...] GC SPEC SVC Kristopher Ritchie MD 2 9:55 PM EDT - 2 [...] 11:59 PM EDT Hospital Encounter [facility] PT TIRSOT Ar Vaca MD 1 5:10 AM EDT [...] Encounter [facility] GC SPEC SVC GRT Chana Hendrickson DPM 0 9:57 AM EST - 0 11:59 PM EST Hospital Encounter [facility] RADIOLOGY Ar Domínguez MD 0 12:15 PM EST - 0 11:59 PM EST Hospital Encounter [facility] RADIOLOGY GRAr Luciano MD 0 5:37 AM EDT - 0 [...] PM EDT Hospital Encounter [facility] GC SPEC SV Dung Parnell MD 0 12:08 PM EDT - 0 11:59 PM EDT Hospital Encounter [facility]ST GC SPEC SVC GRDung Helton MD 0 12:21 PM EDT - 0 [...] Hospital Encounter HST EK1 GRT Braeden Kincaid R 9 3:17 PM EDT - 9 11:59 PM EDT Hospital Encounter [facility] RADIOLOGY GRT Ar Vaca MD 9 4:04 AM EDT - 9 11:59 PM EDT Hospital Encounter HST CTR WOM WEL EDG Braeden Kincaid R 9 5:13 PM EDT - 9 11:59 PM EDT Hospital Encounter [facility] RADIOLOGY TIRSOT Ar Vaca MD 9 1:15 PM EDT - 9 11:59 PM EDT Hospital Encounter [facility] RADIOLOGY GRT Braeden Kincaid 9 8:19 AM EST - 9 11:59 PM EST Hospital Encounter [facility] RADIOLOGY Ar Domínguez MD 9 8:22 AM EST - 9 [...] Hospital Encounter [facility]ST EPIC CON UNK EDG [facility] 8 8:20 PM EST - 8 11:59 PM EST Hospital Encounter HST LAB EDG [facility] 7 3:27 PM EST - 7 11:59 PM EST Hospital Encounter [facility] HAND EDG Luana Varghese MD 7 1:38 PM EST Hospital Encounter [facility] Luana Varghese MD 5 8:24 PM EDT - 5 11:59 PM EDT Hospital Encounter HST EPIC CON UNK COV [facility] 5 11:00 AM EDT - 5 11:59 PM EDT Emergency H[facility] UN EDG Gurpreet Sam DO 3 7:37 PM EST - 3 11:59 PM EST Hospital Encounter [facility] 2 6:39 PM EST - 2 11:59 PM EST Hospital Encounter [facility] 0 8:50 AM EST - 0 11:59 PM EST Hospital Encounter HST [facility] ED Hilary Acosta MD 9 2:20 PM EDT - 9 11:59 PM EDT Emergency [facility] Hilary Quinonez MD Allergies Active Allergy Reactions Criticality Noted Date Comments Penicillins 03/13/2010 Sulfa (Sulfonamide Antibiotics) 02/17 Erythromycin 03/13/2010 Codeine 03/13/2010 Cefuroxime Axetil 03/13/2010 Tegaserod Hydrogen Maleate 0 Levofloxacin Morphine Itching 09/08/2013 Methadone 10/19/2013 Hydroxychloroquine Itching 01/03/2021 Nitrofurantoin Monohyd/M-Cryst Rash 12/06 Medications aspirin 81 mg tablet Take 81 mg by mouth daily. Active oxyCODONE-acetamin ophen (PERCOCET) 5-325 mg Oral Tablet Take by mouth every 6 hours as needed for Pain. Active biotin 5,000 mcg Oral Tablet, Rapid Dissolve Take 1 Tab by mouth daily. Active multivit with min-folic acid 200 mcg Oral Tablet, Chewable Take 1 Tab by mouth daily. Active ketotifen (ZADITOR) 0.025 % (0.035 %) Opht DropsIndications:A llergic conjunctivitis, bilateral Place 1 Drop into both eyes 2 times daily. 10 mL 5 12/10/19 24 Active allopurinoL (ZYLOPRIM) 100 mg Oral TabletIndications: Elevated uric acid in blood Take 1 Tablet by mouth 2 times daily. 180 Tablet 1 11/03/19 25 Active LEVOthyroxine (SYNTHROID) 75 mcg Oral TabletIndications: Acquired hypothyroidism Take 1 Tablet by mouth daily. 90 Tablet 1 11/03/19 25 Active cyclobenzaprine (FLEXERIL) 10 mg Oral TabletIndications: Muscle pain Take 1 Tablet by mouth 3 times daily. 270 Tablet 1 11/29/19 25 Active hydroxychloroquine (PLAQUENIL) 200 mg Oral TabletIndications: Erosive osteoarthritis of both hands Take 1 Tablet by mouth daily. 90 Tablet 1 11/29/19 25 Active omeprazole (PRILOSEC) 40 mg Oral Capsule, Delayed Release(E.C.)Indic ations:Gastroesoph ageal reflux disease with esophagitis without hemorrhage Take 1 Capsule by mouth daily. 90 Capsule 1 11/29/19 25 Active propranoloL (INDERAL) 20 mg Oral TabletIndications: Essential hypertension Take 1 Tablet by mouth 2 times daily. 90 Tablet 1 11/29/19 25 Active lidocaine 2 % MM SolutionIndication s:Thrush Take 5 mL by mouth every 2 hours as needed for Pain. 200 mL 12/01/19 25 Active predniSONE (DELTASONE) 10 mg Oral TabletIndications: Dermatitis 40mg(4 pills) today and decrease 5mg(1/2 pill) qd 18 Tablet 12/20/19 25 Active loratadine (CLARITIN) 10 mg Oral TabletIndications: Dermatitis Take 1 Tablet by mouth daily. 30 Tablet 5 12/20/19 25 Active fluconazole (DIFLUCAN) 150 mg Oral TabletIndications: Acute vaginitis 1 today repeat every 3 days as needed 3 Tablet 12/22/19 25 Active semaglutide 0.25 mg or 0.5 mg (2 mg/3 mL) SubQ Pen Injector Inject 0.5 mg under the skin once a week for 122 days. 9 mL 12/30/19 25 025 Active meclizine (ANTIVERT) 25 mg Oral TabletIndications: Dizziness Take 1 Tablet by mouth 3 times daily as needed for Dizziness. 30 Tablet 5 01/26/20 25 Active promethazine (PHENERGAN) 25 mg Oral TabletIndications: Nausea TAKE 1 TABLET BY MOUTH EVERY 6 HOURS NEEDED. FOR NAUSEA 100 Tablet 1 02/20/20 25 Active promethazine (PHENERGAN) 25 mg Oral TabletIndications: Nausea TAKE 1 TABLET BY MOUTH EVERY 6 HOURS NEEDED. FOR NAUSEA 100 Tablet 1 12/22/19 25 025 Discontinued Active Problems Patient Care Coordination No te Formatting of this note migh t be different from the original. 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 exercise Lupus (systemic lupus erythematosus) Resolved Problems Problem Noted Date Diagnosed Date Resolved Date Systemic lupus erythematosus 05/23/2024 05/23/2024 Type 2 diabetes mellitus wit h diabetic polyneuropathy 08/19/2023 08/19/2023 Overview (08/19/2023): Noted by [employer] last documented on [id number] Viral infection 08/19/2023 [...] Uncle Social History Smoking Status as of 03/05/2025 Tobacco Use Types Packs/Day Years Used Date Smoking Tobacco: Never Assessed Overall Financial Resource Strain (CARDIA) Answe r Date Recorded How hard is it for you to pa y for the very basics like food, housing, medical care, and heating? Not very hard 08/17/2024 PHQ-2 Answer Date Recorded PHQ-2 Total Score 0 11/02/2024 [facility] - Occupational [...] stage 2 chronic kidney disease, unspecified whether fdc insulin use (HCC) COMPREHENSIVE METABOLIC PANEL Routine [...] in progress. Cardiology Consult Moises Ortega MD, [facility], [facility] Name: Karoline William : 1955 Chief Complaint: No chief complaint on file. HPI 57 Minimal Disease by cath 2008 Sudden CP/ SOB- atypical Was worried Came to ER- R/O for IN Stress test Negative Hx of DM MICHAEL [...] (ONE TOUCH TEST) Strp 1 box by [facility].(Non-Drug;Combo Route) route 2 times daily. One touch ultra 2 09/21/12 YesAr Vaca MD [facility] by [facility].(Non-Drug; Combo Route) route 2 times daily.09/21/12 Yes [...] No arthralgias, or myalgias- No Back pain. 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 [address] [address] while here Chronic pain 11/13/2013 Priority: Medium [...] - Plan 1- Atypical CP R/o for IN Stress test negative Will add low dose [...] Abdominal pain, other specified site VITAMIN D, [id number] Routine 12/25 3:03 PM EDT Unspecified labyrinthitis [...] 10/02/2009 5:[address] ABD/PELVIS ALARM FIELD TECHNICIAN Routine 04/18/2009 8:20 AM EDT GC XX FLAT AND UPRIGHT ABDOMEN Routine 04/15/2009 5:[address] ABD/PELVIS ALARM FIELD TECHNICIAN Routine 02/06/2009 11:25 AM EDT CC CARDIAC PROCEDURE Routine 12/27/2008 7:[address] HEAD ALARM FIELD TECHNICIAN Routine 10/30/2008 4:40 PM EDT GC MM DIG DIAG ADIS PANEL W/CAD Routine 10/17/2008 8:[address] PHARM STRESS Routine 10/15/2008 12:30 PM EDT GC EC ECHO COMPLETE PANEL Routine 2008 11:31 AM EDT GC NM NUCLEAR CARD PROC ALARM FIELD TECHNICIAN Routine 09/17 10:[address] ABD/PELVIS ALARM FIELD TECHNICIAN Routine 08/28/2008 7:00 PM EST GC MM DIG SCR ADIS PANEL W/CAD Routine 10/03/2007 1:00 PM EDT XX KNEE Routine 04/12/2007 1:[address] ABD/PELVIS ALARM FIELD TECHNICIAN Routine 03/23/2007 2:00 PM EDT GC MM MAMMO DIAG BILATERAL Routine 03/23 8:[address] ABD/PELVIS ALARM FIELD TECHNICIAN Routine 09/15/2006 9:15 AM EST FL STOMACH-SMALL BOWEL ALARM FIELD TECHNICIAN Routine 09/08 8:05 AM EST XX FLAT AND UPRIGHT ABDOMEN Routine 07/21 4:10 PM EST MM MAMMO DIAG BILATERAL Routine 03/03/20 8:[address] CHEST ALARM FIELD TECHNICIAN Routine 03/01/2006 12:48 PM EDT XX CHEST PORTABLE Routine 03/01/2006 11:30 AM EDT EK EKG REG Routine 03/01/2006 11:07 AM EDT EK EKG REG Routine 12/06/2005 8:47 AM EDT US LIVER-HEPATIC SONOGRAPHY Routine 10/2005 9:05 AM EDT FL BARIUM SWALLOW Routine 10/13/2005 9:57 AM EST FL SMALL BOWEL Routine 10/10/2005 8:[address] ABD/PELVIS ALARM FIELD TECHNICIAN Routine 08/07/2005 10:00 AM EST XX ANKLE Routine 03/31/2005 10:34 AM EDT MM MAMMO SCREEN W/CAD PANEL. Routine 10:16 AM EDT EK EKG REG Routine 11/20/2004 7:57 PM EDT Results * (ABNORMAL) CBC WITH DIFF (11/30/2024 1:33 PM EDT) Only the most recent of29 resultswithin the time period is included. WBC 12.1(H) 3.7 - 10.3 x10(3)/mcL 11/30/2024 7:46 PM EDT [facility] RBC 4.42 3.90 - 5.20 [...] 7:46 PM EDT [facility] Rush Percent 7.9 % 11/30/2024 7:46 PM EDT [...] x10(3)/mcL 11/30/2024 7:46 PM EDT [facility] [employer], [facility] Comment:Automated count of m etamyelocytes, myelocytes and promyelocytes. An absolute IG <0.1 is reported as 0.0. Lymph # 2.9 1.2 - 3.9 x10(3)/[facility] 11/30/2024 7:46 PM EDT [facility] Rush # 1.0(H) 0.3 - 0.9 x10(3)/[facility] 11/30/2024 7:46 PM EDT [facility], [facility] Eos# 0.0 0.0 - 0.5 x10(3)/[facility] 11/30/2024 7:46 PM EDT [facility] Baso # 0.0 0.0 - 0.1 x10(3)/[facility] 11/30/2024 7:46 PM EDT [facility], [facility] Blood VENOUS BLOOD / Unknown Venipuncture / Unknown 11/30/2024 1:33 PM EDT 11/30/2024 1:33 PM EDT us Ar Vaca MD HEMATOLOGY ORDERABLES Fi nal Result Performing Organization Address [facility]/ZIP Co de Phone Number [facility] [employer], [address] , [place] [address] * URIC ACID (11/30/2024 1:33 PM EDT) Only the most recent of7 resultswithin the time period is included. Uric Acid 2.7 2.4 - 5.7 mg/dL 11/30/2024 8:56 PM EDT [facility] [employer], [facility] Blood VENOUS BLOOD / Unknown Venipuncture / Unknown 11/30/2024 1:33 PM EDT 11/30/2024 1:33 PM EDT Ar Vaca MD CHEMISTRY ORDERABLES Fin al Result Performing Organization Address [facility]/ZIP Co de Phone Number [facility] [employer], [address] , [place] [address] * THYROID STIMULATING HORMONE (11/30/2024 1:33 PM EDT) Only the most recent of23 resultswithin the time period is included. TSH 4.020 0.270 - 4.200 mcIU/mL 11/30/2024 8:56 PM EDT [facility] Blood VENOUS BLOOD / Unknown Venipuncture / Unknown 11/30/2024 1:33 PM EDT 11/30/2024 1:33 PM EDT Narrative [employer] [facility] - 11/30/2024 8:56 PM EDT Ingestion of gerald doses of biotin (>5 mg/day) taken within 8 hours of drawing blood sample can interfere with this immunoassay test. Ar Vaca MD CHEMISTRY ORDERABLES Fin al Result [facility] [address] [facility], [place] [address] * (ABNORMAL) HEMOGLOBIN A1C (11/30/2024 1:33 PM EDT) Only the most recent of19 resultswithin the time period is included. Hgb A1C 5.8(H) 4.2 - 5.6 % 11/30/2024 8:08 PM EDT [facility] Est. Avg Glucose 120 mg/dL 11/30/2024 8:08 PM EDT [facility] Blood VENOUS BLOOD / Unknown Venipuncture / Unknown 11/30/2024 1:33 PM EDT 11/30/2024 1:33 PM EDT Jay [facility] - 11/30/2024 8:08 PM EDT REFERENCE RANGE: [...] al Result [facility] [address] [facility] , [place] [address] * (ABNORMAL) COMPREHENSIVE METABOLIC PANEL (11/30/2024 1:33 [...] - 123 U/L 11/30/2024 8:56 PM EDT [facility] eGFR (CKD-EPIcr 2020) 71 >=60 mL/min/1.7 3 m2 11/30/2024 8:56 PM EDT [facility] Comment:Estimated GFR was ca lculated using the CKD-EPIcr (2020) equation refit without race. The equation is recommended by the National Kidney Foundation - [place] [employer] of Nephrology Task Force. Blood VENOUS BLOOD / Unknown Venipuncture / Unknown 11/30/2024 1:33 PM EDT 11/30/2024 1:33 PM EDT us Ar Vaca MD CHEMISTRY ORDERABLES Fin al Result [facility] [employer] [address] [facility] , [address] [place] [id number] * (ABNORMAL) SEP URINALYSIS POC (11/30/2024 1:05 [...] ORDER BUFFY Final Result Performing Organization Address City/[facility]/ZIP Co de Phone Number [facility] [address] [place] [address] * URINE CULTURE (NO STAIN) (11/30/2024 1:03 PM EDT) Only the most recent of7 resultswithin the time period is included. Culture Multiple bacterial species isolated from urine consistent with urogenital commensal organisms. 12/02/2024 7:23 AM EDT [facility] [employer] Urine STRUCTURE OF URINARY TRACT PROPER / Unknown 11/30/2024 1:03 PM EDT 11/30/2024 1:03 PM EDT us Ar Vaca MD MICROBIOLOGY - GENERAL O RDERABLES Final Result [facility], [employer] [address] [place] [address] , [place] [address] * (ABNORMAL) TSH REFLEX (08/15/2024 2:35 PM EST) Only the most recent of9 resultswithin the time period is included. TSH Reflex 5.890(H) 0.270 - 4.200 mcIU/mL 08/15/2024 11:32 PM EST [facility] Blood VENOUS BLOOD / Unknown Venipuncture / Unknown 08/15/2024 2:35 PM EST 08/15/2024 2:35 PM EST Narrative [facility], [employer] - 08/15/2024 11:32 PM EST Ingestion of gerald doses of biotin (>5 mg/day) taken within 8 hours of drawing blood sample can interfere with this immunoassay test. Ar Vaca MD CHEMISTRY ORDERABLES Fin al Result Performing Organization Address [facility] de Phone Number [facility] [address] [facility] , [place] [address] * T4, FREE (THYROXINE) (08/15/2024 2:35 PM EST) Only the most recent of21 resultswithin the time period is included. Free T4 1.36 0.80 - 1.80 ng/dL 08/16/2024 12:18 AM EST [facility] Blood VENOUS BLOOD / Unknown Venipuncture / Unknown 08/15/2024 2:35 PM EST 08/15/2024 2:35 PM EST Narrative [facility] - 08/16/2024 12:18 AM EST Ingestion of gerald doses of biotin (>5 mg/day) taken within 8 hours of drawing blood sample can interfere with this immunoassay test. Ar Vaca MD CHEMISTRY ORDERABLES Fin al Result Performing Organization Address [facility] Phone Number [facility] [employer] [address] [place] [address] , [place] [address] * (ABNORMAL) LIPID PANEL REFLEX (03/10/2024 1:45 PM EDT) Only the most recent of6 resultswithin the time period is included. Cholesterol 168 <200 mg/dL 03/10/2024 7:49 PM EDT [facility] Comment: < 200 Desirable 200 - 239 Borderline High >= 240 High Triglyceride 178(H) <150 mg/dL 03/10/2024 7:49 PM EDT [facility] Comment: < 150 Normal 150 - 199 Borderline High 200 - 499 High >= 500 Very High HDL 40 >=40 mg/dL 03/10/2024 7:49 PM EDT [facility] Comment: > 60 Optimal 40 - 60 Acceptable < 40 Low LDL Calculated 97 <100 mg/dL 03/10/2024 7:49 PM EDT [facility] Non-HDL-C Calculated 128 <=129 mg/dL 03/10/2024 7:49 PM EDT [facility] Comment: <130 Desirable 130-159 Above Desirable 160-189 Borderline High 190-219 High >= 220 Very High Fasting Specimen? No None 024 7:49 PM EDT [facility] Blood VENOUS BLOOD / Unknown Venipuncture / Unknown 03/10/2024 1:45 PM EDT 03/10/2024 1:45 PM EDT Ar Vaca MD CHEMISTRY ORDERABLES Fin al Result Performing Organization Address [facility] de Phone Number [facility] [employer] , [place] [phone] [facility] [address] [place], [place] [id number] * SEDIMENTATION RATE AUTOMATED (03/10/2024 1:45 PM EDT) Only the most recent of3 resultswithin the time period is included. Pathologist [facility] Sed Rate 11 0 - 30 mm/hr 03/10/2024 8:11 PM EDT [facility] Blood VENOUS BLOOD / Unknown Venipuncture / Unknown 03/10/2024 1:45 PM EDT 03/10/2024 1:45 PM EDT Ar Vaca MD HEMATOLOGY ORDERABLES Fi nal Result Performing Organization Address [facility] de Phone Number [facility] [address] [facility] , [place] [address] * RHEUMATOID FACTOR QUANTITATIVE (03/10/2024 1:45 PM EDT) Only the most recent of2 resultswithin the time period is included. RF Quant <10 <14 IU/mL 03/10/2024 7:3 6 PM EDT [facility] Blood VENOUS BLOOD / Unknown Venipuncture / Unknown 03/10/2024 1:45 PM EDT 03/10/2024 1:45 PM EDT Ar Vaca MD IMMUNOLOGY ORDERABLES Fi nal Result Performing Organization Address [facility] de Phone Number [facility] [employer] , [place], [place] [id number] * ANTINUCLEAR ANTIBODY SCREEN (03/10/2024 1:45 PM EDT) Only the most recent of3 resultswithin the time period is included. SHANTI, IgG Negative Negative 03/12/2024 10:26 AM EDT [facility], [facility] Comment:SHANTI samples are scre ened using automated enzyme immunoassay. All samples that screen positive are then tested by the indirect immunofluorescence method. Blood VENOUS BLOOD / Unknown Venipuncture / Unknown 03/10/2024 1:45 PM EDT 03/10/2024 1:45 PM EDT Ar Vaca MD IMMUNOLOGY ORDERABLES Fi nal Result Performing Organization Address [facility] de Phone Number [facility] [employer] [place] [address] * URINALYSIS (10/08/2023 12:48 PM EDT) Only the most recent of4 resultswithin the time period is included. UA Color Light Yellow 10/08/2023 6:49 PM EDT [facility] UA Appear Clear Clear 10/08/2023 6:49 PM EDT [facility] UA Glucose Negative Negative mg/dL 10/08/2023 6:49 PM EDT [facility] UA Ketones Negative Negative mg/dL 10/08/2023 6:49 PM EDT [facility] UA Blood Negative Negative 10/08/2023 6:49 PM EDT [facility] UA pH 6.5 5.0 - 8.0 pH 10/08/2023 6:49 PM EDT [facility] UA Protein Negative Negative mg/dL 10/08/2023 6:49 PM EDT [facility] UA Urobilinogen Normal <=1 mg/dL 6:49 PM EDT [facility] UA Bili Negative Negative 10/08/2023 6:49 PM EDT [facility] UA Nitrite Negative Negative 10/08/2023 6:49 PM EDT [facility], [facility] UA Leuk Est Negative Negative 10/08/2023 6:49 PM EDT [facility], [facility] UA Spec Grav 1.009 1.001 - 1.035 no units 10/08/2023 6:49 PM EDT [facility], [facility] Comment:Reference range nnacy d for random specimens only. Urine URINE SPECIMEN COLLECTION, CLEAN CATCH / Unknown 10/08/2023 12:48 PM EDT 10/08/2023 12:48 PM EDT us Ar Vaca MD URINE ORDERABLES Final R esult [facility], [facility] [address] [facility] , [place] [address] * XR CERVICAL SPINE AP LATERAL ODONTOID [...] HISTORY: M50.30-Other cervical disc degeneration, unspecified cervical [id number]-69-CM COMPARISON: None. PROCEDURE COMMENTS: Minimum of 5 views of the cervical spine, including PA, lateral, odontoid, and bilateral oblique positioning. FINDINGS: No fracture or evidence of traumatic malalignment. Soft tissues unremarkable. Large anterior osteophyte C5-C6. Milder discogenic changes C6-C7. Bony foramina appear overall patent. Procedure Note Chan Hill MD - 09/07/2023 C-SPINE SERIES, 09/07/2023 4:54 PM CLINICAL HISTORY: M50.30-Other cervical disc degeneration, unspecifiedcervical acwcyz-URG-27-CM COMPARISON: None. PROCEDURE COMMENTS: Minimum of 5 [...] CARE TEST ORDER BUFFY Final Result [facility] [address] [place] [address] * POCT SARS-COV-2 RNA SEP (10/04/2022 12:57 PM EDT) COV19 RNA POCT Negative Negative 10/04/2022 1:07 PM EDT [facility] Swab NASAL / Unknown 10/04/2022 1 2:57 PM EDT 10/04/2022 1:07 PM EDT Narrative [facility] - 10/04/2022 1:07 PM EDT [...] management. Eckert ID NOW Provider Fact Sheet: https://www.fda.gov/media/448279/download Eckert ID NOW Patient Fact Sheet: https://www.fda.gov/media/811200/download us Gabbie Simms MD POINT OF CARE TEST ORDERAB LES Final Result [facility] [address] [place] [address] * (ABNORMAL) LIPID SCREEN (08/28/2022 10:02 AM EST) Only the most recent of10 resultswithin the time period is included. Cholesterol 187 <200 mg/dL 08/28/2022 4:33 PM EST [facility] Comment: < 200 Desirable 200 - 239 Borderline High >= 240 High Triglyceride 187(H) <150 mg/dL 08/28/2022 4:33 PM EST [facility] Comment: < 150 Normal 150 - 199 Borderline High 200 - 499 High >= 500 Very High HDL 40 >=40 mg/dL 08/28/2022 4:33 PM EST [facility] [employer] Comment: > 60 Optimal 40 - 60 Acceptable < 40 Low LDL Calculated 114(H) <100 mg/dL 08/28/2022 4:33 PM EST [facility] Comment: < 100 Optimal 100 - 129 Near or above optimal 130 - 159 Borderline High 160 - 189 High >= 190 Very High Non-HDL-C Calculated 147(H) <=129 mg/dL 08/28/2022 4:33 PM EST [facility] Comment: <130 Desirable 130-159 Above Desirable 160-189 Borderline High 190-219 High >= 220 Very High Fasting Specimen? Yes None 023 4:33 PM EST [facility] Blood VENOUS BLOOD / Unknown Venipuncture / Unknown 08/28/2022 10:02 AM EST 08/28/2022 10:02 AM EST Ar Vaca MD CHEMISTRY ORDERABLES Fin al Result Performing Organization Address [facility]/State/ZIP Co de Phone Number [facility] [employer] [address] [facility], [place] [address] [facility] [address] [place] [address] * (ABNORMAL) CORONAVIRUS 2019 (COVID-19) - REF LAB (08/23/2021 2:22 PM EST) Only the most recent of2 resultswithin the time period is included. CORONAVIRUS [id number] DETECTED( A) NOT DETECTED 08/24/2021 5:53 PM EST [facility] Swab NASAL / Unknown 08/23/2021 2 :22 PM EST 08/23/2021 2:22 PM EST Narrative [facility] - 08/24/2021 5:53 PM EST Testing Performed at [facility] [address] [place] [address], [address], [place] [address] CLIA#: [id number] Form Presser: Hilary Moon, Ph.D., [facility]. Detected results are indicative of [...] LAB SEND OUT ORDERAB LES Final Result [facility] [address] [place] [address], [facility] [phone] * MRI CERVICAL SPINE WO CONTRAST (07/31/2021 [...] 8:42 AM CLINICAL HISTORY: R59.0-Localized enlarged lymph uxuxf-QAZ-52-CM. COMPARISON: CT July 11, 2021. PROCEDURE COMMENTS: [...] 8:42 AM CLINICAL HISTORY: R59.0-Localized enlarged lymph ufbhf-BIC-33-CM. COMPARISON: CT July 11, 2021. PROCEDURE COMMENTS: [...] 11:07 AM CLINICAL HISTORY: R59.0-Localized enlarged lymph egiss-FSH-01-CM. COMPARISON: None. PROCEDURE COMMENTS: Multidetector volumetric CT [...] 11:07 AM CLINICAL HISTORY: R59.0-Localized enlarged lymph pkddj-IFR-00-CM. COMPARISON: None. PROCEDURE COMMENTS: Multidetector volumetric CT [...] 11:21 AM CLINICAL HISTORY: R59.0-Localized enlarged lymph mqhqb-CDV-13-CM. COMPARISON: None. PROCEDURE COMMENTS: Routine sonographic evaluation of the region of interest with statement services representative images sent to PACS along with cordage sales representative notes. FINDINGS: Patient complains of pain and [...] 11:21 AM CLINICAL HISTORY: R59.0-Localized enlarged lymph mvphx-FER-94-CM. COMPARISON: None. PROCEDURE COMMENTS: Routine sonographic evaluation of the region ofinterest with statement services representative images sent to PACS along with cordage sales representative notes. FINDINGS: Patient complains of pain and [...] office of the ordering clinician. us Viral Corenjo V, DO IMG US ORDERABLES Final Result [...] HISTORY: M21.949-Unspecified acquired deformity of hand, unspecified qfvl-BJD-82-CM M19.041-Primary osteoarthritis, right ndhz-UWR-33-CM M19.042-Primary osteoarthritis, left hozo-QAX-78-CM COMPARISON: None. PROCEDURE COMMENTS: Bilateral imaging per [...] CLINICAL HISTORY: M21.949-Unspecified acquired deformity of hand,unspecified zdpm-PPE-93-CM M19.041-Primary osteoarthritis, right owbj-RHY-12-CM M19.042-Primary osteoarthritis, left smek-VZS-18-CM COMPARISON: None. PROCEDURE COMMENTS: Bilateral imaging per [...] IgG <0.5 U/mL 10/28/2020 8:46 PM EDT [facility] Comment: Negative: < 5.0 U/mL Positive: > or = 5.0 U/mL Blood VENOUS BLOOD / Unknown Venipuncture / Unknown 10/28/2020 1:43 PM EDT 10/28/2020 1:43 PM EDT us Lacho Ennis MD IMMUNOLOGY ORDERABLES Final Result [facility] [address] [facility] , [place] [address] * VITAMIN D 25 HYDROXY (10/28/2020 1:43 PM EDT) Only the most recent of3 resultswithin the time period is included. Vit D 25 OH 49.1 30.0 - 150.0 ng/mL 10/28/2020 8:15 PM EDT [facility] Comment: Preferred: >= 30 ng/mL Insufficient: 21-29 [...] ORDERABLES Final R esult Performing Organization Address [facility] Co de Phone Number [facility] [address] , [place] [address] * (ABNORMAL) C-REACTIVE PROTEIN (10/28/2020 1:43 PM EDT) Pathologist [facility] CRP 8.12(H) <=5.00 mg/L 10/28/2020 7:58 PM EDT [facility] Blood VENOUS BLOOD / Unknown Venipuncture / Unknown 10/28/2020 1:43 PM EDT 10/28/2020 1:43 PM EDT us Lacho Ennis MD CHEMISTRY ORDERABLES Final R esult Performing Organization Address City/[facility]/ZIP Co de Phone Number [facility] [address] , [place] [address] * (ABNORMAL) RENAL FUNCTION PANEL (10/28/2020 1:43 PM EDT) Pathologist [facility] Sodium 140 136 - 145 mmol/L 10/28/2020 8:00 PM EDT [facility] Potassium 4.5 3.5 - 5.0 mmol/L 10/28/2020 8:00 PM EDT [facility] Chloride 102 98 - 107 mmol/L 10/28/2020 8:00 PM EDT [facility] Total CO2 28 22 - 29 mmol/L 10/28/2020 8:00 PM EDT [facility] Anion Gap 10 7 - 16 mmol/L 10/28/2020 8:00 PM EDT [facility] Calcium 9.7 8.8 - 10.4 mg/dL 10/28/2020 8:00 PM EDT [facility] Glucose Lvl 94 82 - 100 mg/dL 10/28/2020 8:00 PM EDT [facility] BUN 15 8 - 23 mg/dL 10/28/2020 8:00 PM EDT [facility] Creatinine 1.03 0.51 - 1.30 mg/dL 10/28/2020 8:00 PM EDT [facility] Albumin 4.1 3.2 - 4.6 gm/dL 10/28/2020 8:00 PM EDT [facility], [facility] Phosphorus 3.4 2.5 - 4.5 mg/dL 10/28/2020 8:00 PM EDT [facility] GFR Afr Am 66 >=60 mL/min/1.7 3 m2 10/28/2020 8:00 PM T [facility] GFR Non Afr Am 58(L) >=60 mL/min/1.7 3 m2 10/28/2020 8:00 PM T [facility] Comment: This estimated GFR was [...] CHEMISTRY ORDERABLES Final Res ult [facility] [address] [facility], [address] [place], [place] [id number] [facility] [address] [place] [address] * CT ABD PEL ED FAST W [...] - 10.3 x10(3)/mcL 10/01/2020 2:34 AM EDT [facility] RBC 4.37 3.90 - 5.20 x10(6)/mcL 10/01/2020 2:34 AM EDT [facility] Hgb 11.9 11.2 - 15.7 g/dL 10/01/2020 2:34 AM EDT [facility] Hct 37.3 34.0 - 45.0 % 10/01/2020 2:34 AM EDT [facility] MCV 85.4 80.0 - 100.0 fL 10/01/2020 2:34 AM EDT [facility] MCH 27.2 26.0 - 34.0 pg 10/01/2020 2:34 AM EDT [facility] MCHC 31.9 30.7 - 35.5 g/dL 10/01/2020 2:34 AM EDT [facility] RDW 15.3(H) <=14.9 % 10/01/2020 2:34 AM EDT [facility] Platelet 260 155 - 369 x10(3)/mcL 10/01/2020 2:34 AM EDT [facility] MPV 11.3 8.8 - 12.5 fL 10/01/2020 2:34 AM ED [facility] Blood VENOUS BLOOD / Unknown Venipuncture / Unknown 10/01/2020 2:27 AM EDT 10/01/2020 2:30 AM EDT us Henry Valiente MD HEMATOLOGY ORDERABLES F inal Result [facility] [address] [place] [address] * (ABNORMAL) BASIC METABOLIC PANEL (10/01/2020 2:27 AM EDT) Only the most recent of21 resultswithin the time period is included. Sodium 137 136 - 145 mmol/L 10/01/2020 2:56 AM EDT [facility] Potassium 4.3 3.5 - 5.0 mmol/L 10/01/2020 2:56 AM EDT [facility] Chloride 102 98 - 107 mmol/L 10/01/2020 2:56 AM EDT [facility] Total CO2 27 22 - 29 mmol/L 10/01/2020 2:56 AM EDT [facility] Anion Gap 8 7 - 16 mmol/L 10/01/2020 2:56 AM EDT [facility] Calcium 10.0 8.8 - 10.4 mg/dL 10/01/2020 2:56 AM T [facility] Glucose Lvl 122(H) 82 - 100 mg/dL 10/01/2020 2:56 AM EDT [facility] BUN 13 8 - 23 mg/dL 10/01/2020 2:56 AM EDT [facility] Creatinine 0.86 0.51 - 1.30 mg/dL 10/01/2020 2:56 AM T [facility] GFR Afr Am 83 >=60 mL/min/1.7 3 m2 10/01/2020 2:56 AM EDT [facility] GFR Non Afr Am 72 >=60 mL/min/1.7 3 m2 10/01/2020 2:56 AM T [facility] Comment: This estimated GFR was [...] ORDERABLES Fi nal Result Performing Organization Address [facility] Co de Phone Number [facility] [address] [place] [address] * EXTRA ARAGON URINE CX (10/01/2020 1:58 AM EDT) Only the most recent of2 resultswithin the time period is included. Urine URINE SPECIMEN COLLECTION, CLEAN CATCH / Unknown 10/01/2020 1:58 AM EDT 10/01/2020 2:01 AM EDT Henry Valiente MD MICROBIOLOGY - GENERAL ORDERABLES Final Result Performing Organization Address [facility] de Phone Number [facility] [address] [place] [address] * POCT URINALYSIS DIPSTICK (09/18/2020 11:15 AM EST) Only the most recent of7 resultswithin the time period is included. Color, UA yellow CLEAR,YELL OW,ORANGE, RUST [facility] OFF[facility] Clarity, UA clear CLEAR,CLOU DY [facility] OFFICE Glucose, UA negative G/DL% [facility] Bilirubin, UA negative POS/NEG [facility] OFF[facility] Ketones, UA negative POS/NEG [facility] oem sales manager Grav, UA 1.015 1.001 - 1.035 G/DL [facility] OFFICE Blood, UA negative POS/NEG C OFFICE pH, UA 6.0 5.0 - 8 [facility] OFF[facility] Protein, UA negative POS/NEG [facility] OFFICE Urobilinogen, UA negative 0.2 - 1.0 MG/DL [facility] OFFICE Nitrite, UA negative POS/NEG [facility] OFFICE Leukocytes, UA negative POS/NEG [facility] OFFICE UA Appear POC [facility] OFFICE Lot Number [facility] OFFICE Expiration Date [facility] OFFICE SeriAl # [facility] OFFICE Urine 09/18/2020 11:1 5 AM EST Kory Rodriguez MD POINT OF CARE TEST ORDERABLES Final Result [facility] OFFICE * CT CHEST WO CONTRAST (09/13/2020 3:15 PM EST) Anatomical Region Laterality Modality Chest Computed Tomogra phy 09/13/2020 3:15 PM EST Impressions 09/13/2020 4:33 PM EST Osteoarthritis right sternoclavicular joint. - Narrative 09/13/2020 4:[address] CHEST WITHOUT CONTRAST, 09/13/2020 3:15 PM CLINICAL HISTORY: R07.89-Other chest blhq-IRH-20-CM. Sternal and clavicular pain COMPARISON: Chest radiograph [...] 09/13/2020 3:15 PM CLINICAL HISTORY: R07.89-Other chest zmvd-IJW-35-CM. Sternal andclavicular pain COMPARISON: Chest radiograph 08/26/2020 [...] CLAVICLE RIGHT, 08/26/2020 10:16 AM CLINICAL HISTORY: M89.9U9-Xetkd specified disorders of bone, ydkjvafo-WLX-00-CM. Recurrent pain/swelling. No history of acute trauma. [...] CLAVICLE RIGHT, 08/26/2020 10:16 AM CLINICAL HISTORY: M89.9R5-Qpxub specified disorders of bone, awbfizrh-RWH-74-CM. Recurrent pain/swelling. No history of acute trauma. [...] 08/26/2020 10:16 AM CLINICAL HISTORY: J01.80-Other acute osfwuyhwb-HPJ-44-CM J20.9-Acute bronchitis, ofdkycmjfjp-PJT-16-CM U07.8-YFTUZ-22-ICD-10-CM COMPARISON: 04/01/2016. The lungs are clear. Heart size is normal. Procedure Note Chana Birght MD - 08/26/2020 PA AND LATERAL CHEST X-RAY, 08/26/2020 10:16 AM CLINICAL HISTORY: J01.80-Other acute yjezofgxq-IKS-26-CM J20.9-Acute bronchitis, iesujatnhpn-BZY-34-CM U07.9-INAES-95-ICD-10-CM COMPARISON: 04/01/2016. The lungs are clear. Heart [...] CLINICAL HISTORY: N28.9-Disorder of kidney and ureter, evrxbnvviyp-SBD-47-CM. COMPARISON: None. PROCEDURE COMMENTS: Routine sonographic evaluation of the kidneys and bladder with statement services representative images and cordage sales representative notes sent to PACS for radiologist review. [...] PM CLINICAL HISTORY: N28.9-Disorder of kidney and ureter,wlwlfbuxmrq-DQS-68-CM. COMPARISON: None. PROCEDURE COMMENTS: Routine sonographic evaluation of the kidneys andbladder with statement services representative images and cordage sales representative notes sent to PACS forradiologist review. FINDINGS: [...] CLINICAL HISTORY: M19.071-Primary osteoarthritis, right ankle and nfmk-RKN-84-CM M19.072-Primary osteoarthritis, left ankle and hgph-IAK-74-CM COMPARISON: None. PROCEDURE COMMENTS: 3 views each [...] CLINICAL HISTORY: M19.071-Primary osteoarthritis, right ankle and icdj-MYS-08-CM M19.072-Primary osteoarthritis, left ankle and kdgf-YWJ-42-CM COMPARISON: None. PROCEDURE COMMENTS: 3 views each [...] enthesopathy with bilateral heel spursnoted. Iftikhar Lang DP IMG DIAGNOSTIC IMAGING ORD ERABLES Final Result [...] HISTORY: M77.51-Other enthesopathy of right foot and jwuot-ZLD-87-CM COMPARISON: 10/15/2013 PROCEDURE COMMENTS: Routine views per the ordered protocol. FINDINGS: Mild degenerative changes around ankle joint. Plantar spurring. Minimal midfoot degenerative change. No acute fracture or dislocation Procedure Note Chan Hill MD - 02/01/2020 XR ANKLE RIGHT AP LATERAL AND OBLIQUE, 02/01/2020 5:22 PM CLINICAL HISTORY: M77.51-Other enthesopathy of right foot wnihqfet-FCX-78-CM COMPARISON: 10/15/2013 PROCEDURE COMMENTS: Routine views per the ordered protocol. FINDINGS: Mild degenerative changes around ankle joint. Plantarspurring. Minimal midfoot degenerative change. No acute fracture or dislocation IMPRESSION: No acute osseous abnormality of the ankle. - us Iftikhar Lang DPTorrey IMG DIAGNOSTIC IMAGING ORD ERABLES Final Result [...] ORDERABLES Final Res ult [facility] [address] [place] [address] , [place] [address] * MRI LUMBAR SPINE WO CONTRAST (04/17/2019 [...] 04/17/2019 6:15 PM CLINICAL HISTORY: M54.5-Low back najo-SJX-93-CM M51.36-Other intervertebral disc degeneration, lumbar ezayqu-ULL-08-CM COMPARISON: None. PROCEDURE COMMENTS: Multiplanar multiecho MR [...] 04/17/2019 6:15 PM CLINICAL HISTORY: M54.5-Low back dcjo-ZAC-79-CM M51.36-Other intervertebral disc degeneration, lumbar klzxdt-RGV-57-CM COMPARISON: None. PROCEDURE COMMENTS: Multiplanar multiecho MR [...] 192 IU/L 09/22/2018 7:19 PM EST [facility] Blood VENOUS BLOOD / Unknown Venipuncture / Unknown 09/22/2018 2:12 PM EST 09/22/2018 2:12 PM EST us Ramonita Hernadez EDITORIAL PROJECT MANAGER CHEMISTRY ORDERABLES Final Res ult [facility] [address] [facility] , [place] [address] * [facility] LOWER EXTREMITY ARTERIAL PHYSIOLOGICAL (09/01/2018 1:10 [...] EDT Impressions 04/06/2018 2:45 PM EDT Negative (EBH-Eaesqvvg-3) ~ RECOMMENDATION: Routine screening mammogram in 1 [...] and inconclusive findings on diagnostic imaging of sunbrz-IZP-22-CM R92.1-Mammographic calcification found on diagnostic imaging of vhujks-QPU-27-CM 62-year-old female with calcifications noted within the right breast in 2014. The patient was requested to return for short-term follow-up. Patient returns today. R92.8-Other abnormal and inconclusive findings on diagnostic imaging of qpbppa-PLV-98-CM R92.1-Mammographic calcification found on diagnostic imaging of wxwwhq-UXH-00-CM 62-year-old female with calcifications noted within the [...] and inconclusive findings on diagnostic imaging of cstptq-XWS-95-CM R92.1-Mammographic calcification found on diagnostic imaging of erxwvg-COL-90-CM 62-year-old female with calcifications noted within the right breast in 2014. The patient was requested to return for short-term follow-up. Patient returns today. R92.8-Other abnormal and inconclusive findings on diagnostic imaging of hxgwtn-STR-78-CM R92.1-Mammographic calcification found on diagnostic imaging of nziwez-VPG-47-CM 62-year-old female with calcifications noted within the [...] mammographic evidence of malignancy. ~ IMPRESSION: Negative (HSD-Mmqzkhta-8) ~ RECOMMENDATION: Routine screening mammogram in 1 [...] Culture Positive Growth(A) 11/26/2017 9:14 AM EDT [facility] Culture Moderate growth of Serratia marcescens SUSCEPTIB ILITY RESULT 11/26/2017 9:14 AM EDT [facility] Culture Sparse growth of Staphylococcus epidermidis SUSCEPTIB ILITY RESULT 11/26/2017 9:14 AM EDT [facility] Comment:No further workup. Culture Sparse growth of Streptococcus intermedius SUSCEPTIB ILITY RESULT 11/26/2017 9:14 AM EDT [facility] Comment:No further workup. Stain No organisms seen 018 9:14 AM EDT [facility] Stain Rare WBCs 11/26/2017 9:14 AM EDT [facility] Swab MAXILLARY SINUS STRUCTURE / Unknown [...] ORDERAB LES Final Result Performing Organization Address City/[facility] [place] [address] * ANAEROBIC CULTURE (NO STAIN) (11/22/2017 1:00 PM EDT) Only the most recent of5 resultswithin the time period is included. Culture No anaerobic growth at 5 days. 11/28/2017 12:26 PM EDT [facility] Swab MAXILLARY SINUS STRUCTURE / Unknown 11/22/2017 1:00 PM EDT 11/22/2017 6:36 PM EDT Carrillo Manriquez MD MICROBIOLOGY - GENERAL ORDERAB LES Final Result Performing Organization Address [facility] [place] [address] * XR ABDOMEN SUPINE ERECT AND DECUBITUS (11/17/2017 5:04 PM EDT) Anatomical Region Laterality Modality Abdomen Radiographic Sharee ging 11/17/2017 5:04 PM EDT Impressions 11/17/2017 5:08 PM EDT Moderate stool Narrative 11/17/2017 5:08 PM EDT XR ABDOMEN SUPINE ERECT AND DECUBITUS 11/17/2017 5:04 PM CLINICAL HISTORY: K59.09-Other wflwonjhvixg-ZBZ-49-CM COMPARISON: None. PROCEDURE COMMENTS: 3 views per protocol. FINDINGS: No free air or obstruction. Moderate stool involving the colon. Prior cholecystectomy. Numerous phleboliths in the pelvis. Procedure Note Chan Hill MD - 11/17/2017 XR ABDOMEN SUPINE ERECT AND DECUBITUS 11/17/2017 5:04 PM CLINICAL HISTORY: K59.09-Other jbmticyhjeez-OKD-80-CM COMPARISON: None. PROCEDURE COMMENTS: 3 views per [...] 11/16/2017 12:46 PM CLINICAL HISTORY: J32.9-Chronic sinusitis, hhkllbhnqcl-OME-29-CM COMPARISON: Limited sinus CT from 07/01/2011. PROCEDURE [...] 11/16/2017 12:46 PM CLINICAL HISTORY: J32.9-Chronic sinusitis, nsshkvqwiwo-RJY-36-CM COMPARISON: Limited sinus CT from 07/01/2011. PROCEDURE [...] maxillary sinus mucosal thickening as detailed above. Carrillo Manriquez MD IMG CT ORDERABLES Final Result * (ABNORMAL) LIPASE LEVEL (11/11/2017 9:06 PM EDT) Only the most recent of5 resultswithin the time period is included. [facility] Lipase Lvl 11(L) 13 - 60 IU/L 11/11/2017 9:36 PM EDT [facility] Blood VENOUS BLOOD / Unknown Venipuncture / Unknown 11/11/2017 9:06 PM EDT 11/11/2017 9:10 PM EDT Kristopher Richard MD CHEMISTRY ORDERABLES Final Resu lt [facility] [address] [place] [address] * MISCELLANEOUS LAB (10/26/2017 1:58 PM EDT) [facility] See Scanned Image 10/28/2017 7:00 PM EDT [facility] Blood BLOOD SPECIMEN / Unknown Venipuncture / Unknown 10/26/2017 1:58 PM EDT 10/26/2017 1:58 PM EDT Rajesh Gutierrez MD PHD HEMATOLOGY ORDERABLES Final Result EXTERNAL LAB [facility] [address] [place] [address] * PLATELET COUNT (10/26/2017 1:57 PM EDT) Platelet 278 144 - 423 x10(3)/mcL 10/26/2017 2:02 PM EDT [facility] MPV 9.5 6.8 - 10.8 fL 10/26/2017 2:02 PM EDT [facility] Blood VENOUS BLOOD / Unknown Venipuncture / Unknown 10/26/2017 1:57 PM EDT 10/26/2017 1:58 PM EDT Rajesh Gutierrez MD PHD HEMATOLOGY ORDERABLES Final Result [facility] [address] [place] [address] * CT ABDOMEN PELVIS WO ORAL OR IV CONTRAST (10/15/2017 2:12 PM EDT) Anatomical Region Laterality Modality Abdomen, Pelvis Computed Tomogra phy 10/15/2017 2:12 PM EDT Impressions 10/15/2017 2:[address] abdomen and pelvis. No acute finding. Narrative 10/15/2017 2:[address] ABDOMEN PELVIS WO ORAL OR IV CONTRAST 10/15/2017 2:12 PM HISTORY: R10.33-Periumbilical rsfh-VFI-38-CM R14.0-Abdominal distension (gaseous)-ICD-10-CM Neither intravenous nor oral [...] IV CONTRAST 10/15/2017 2:12 PM HISTORY: R10.33-Periumbilical ebiz-IXU-70-CM R14.0-Abdominal distension (gaseous)-ICD-10-CM Neither intravenous nor oral [...] No acute finding. us Ramonita Hernadez APRN IMG CT ORDERABLES Final Result * US RIGHT UPPER QUADRANT (10/15/2017 2:02 PM EDT) Anatomical Region Laterality Modality Abdomen Ultrasound 10/15/2017 2:02 PM EDT Impressions 10/15/2017 2:06 PM EDT Impression: Fatty liver Narrative 10/15/2017 2:06 PM EDT Right upper quadrant abdominal ultrasound, [10/15/2017 2:02 PM] Comparison: 03/24/2012 HISTORY: R10.13-Epigastric mudo-NSB-40-CM Findings: Visualized portions of the pancreas and right kidney within normal limits. Fatty liver. Post cholecystectomy. Common bile duct 5 mm in diameter. Procedure Note Sunday Cadena MD - 10/15/2017 Right upper quadrant abdominal ultrasound, [10/15/2017 2:02 PM] Comparison: 03/24/2012 HISTORY: R10.13-Epigastric ifcq-ZQV-94-CM Findings: Visualized portions of the pancreas and right kidney withinnormal limits. Fatty liver. Post cholecystectomy. Common bile duct 5 mm indiameter. IMPRESSION: Impression: Fatty liver us Viral Cornejo V, DO IMG US ORDERABLES Final Result * CANCER ANTIGEN 19-9 -REF LAB (08/24/2017 4:56 PM EST) CA 19-9 GI 21 0 - 37 U/mL 08/26/2017 1:33 AM EST [employer] Comment: INTERPRETIVE INFORMATION: Cancer Antigen-GI (CA 19-9) [...] or absence of malignant disease. Performed by [facility], [address] [place] [address] [email or web address], Kristopher Baitsta MD, Lab. Director Blood VENOUS BLOOD / Unknown Venipuncture / Unknown 08/24/2017 4:56 PM EST 08/24/2017 4:56 PM EST us Viral Cornejo V, DO CHEMISTRY ORDERABLES Final Res ult [facility] [address] [place] [address] * VITAMIN B12 LEVEL (05/17/2017 5:22 PM EDT) Pathologist [facility] Vitamin B12 417 211 - 946 pg/mL 05/17/2017 9:08 PM EDT [facility] Blood VENOUS BLOOD / Unknown Venipuncture / Unknown 05/17/2017 5:22 PM EDT 05/17/2017 5:22 PM EDT us Ramonita Gabo EDITORIAL PROJECT MANAGER CHEMISTRY ORDERABLES Final Res ult [facility] [address] [place] [address] * POCT DRUG SCREEN (05/17/2017 2:56 PM EDT) Pathologist [facility] Cocaine(Metab.)Scree n, Urine negative [facility] Opiates negative [facility] Methamphetamines Negative NG/ML [facility] Marijuana Metabolite Negative NG/ML [facility] Benzodiazepine Screen Urine negative [facility] Barbiturate Screen, Urine negative [facility] Propoxyphene negative [facility] Oxycodone Positive NG/ML [facility] Buprenorphine negative NG/ML [facility] 05/17/2017 2:56 PM EDT Ramonita Hernadez EDITORIAL PROJECT MANAGER POINT OF CARE TEST ORDERABLES Final Result [facility] * PATHOLOGY TISSUE REPORT (03/23/2017 8:24 AM EDT) Only the most recent of2 resultswithin the time period is included. Surgical Pathology Report PATIENT NAME:KAROLINE WILLIAM Surgical Pathology Report Accession Number Collected Date/Time Received Date/Time [id number] 03/23/17 08:24 EDT 03/23/17 11:00 EDT Diagnosis [...] dimension. Entirely submitted in one cassette./ QL / Microscopic Description Microscopic examination is performed and the findings corroborate the diagnosis. _ [facility] 03/23/2017 8:24 AM EDT us Rajesh Gutierrez MD PHD PATHOLOGY ORDERABLES Final Result Performing Organization Address City/[facility] Co de Phone Number [facility] [address] [place] [address] * INTRAOP AIRWAY PLACEMENT (03/23/2017 8:19 AM EDT) Narrative [facility] - 03/23/2017 8:19 AM EDT Padmini Talavera CRNA 03/23/2017 8:19 AM Intraop Airway Placement: Induction type: IV Airway type: Nasal cannula salter Procedure Note Padmini Talavera CRNA - 03/23/2017 8:19 AM EDT Intraop Airway Placement: Induction type: IV Airway type: Nasal cannula salter us Semaj Vega MD SC ANESTHESIA Final Resu lt Performing Organization Address [facility] Co de Phone Number [facility] [address] [place] [address] * GMED EGD-COLONOSCOPY (03/23/2017 8:00 AM EDT) 03/23/2017 8:00 AM EDT Impressions [facility] - 03/23/2017 10:16 AM EDT Plan: [...] bessy Result - Final Performing Organization Address [facility] Co de Phone Number [facility] [address] [place] [address] * (ABNORMAL) GLUCOSE METER POC (03/23/2017 7:19 AM EDT) Only the most recent of5 resultswithin the time period is included. [facility] Glucose Meter POC 101(H) 70 - 100 mg/dL [facility] Sample Type Capillary [facility] Patient Status Non-Critical Patient [facility] Blood specimen (specimen) 03/23/2017 7:19 AM EDT 03/23/2017 7:19 AM EDT Rajesh Gutierrez MD PHD POINT OF CARE TEST ORDERABL ES Final Result Performing Organization Address [facility] Phone Number [facility] [address] [place] [address] * HEPATITIS C ANTIBODY - SCREENING (03/02/2017 2:28 PM EDT) [facility] Hep C Ab Negative Negative [facility] Blood specimen (specimen) 03/02/2017 2:28 PM EDT 03/02/2017 8:18 PM EDT Viral Cornejo V, DO HEMATOLOGY ORDERABLES Final Re sult Performing Organization Address [facility] de Phone Number [facility] [address] [place] [address] * DIFFERENTIAL (03/02/2017 2:28 PM EDT) Only the most recent of17 resultswithin the time period is included. Neut Percent 63.7 % [facility] Lymph Percent 29.3 % [facility] Rush Percent 6.8 % [facility] Eos Percent 0.0 % [facility] Baso Percent 0.2 % [facility] Neut# 6.2 1.8 - 7.7 x10(3)/mcL [facility] Lymph# 2.8 0.6 - 4.8 x10(3)/mcL [facility] Rush# 0.7 0.0 - 1.3 x10(3)/mcL [facility] Eos# 0.0 0.0 - 0.5 x10(3)/mcL [facility] Baso# 0.0 0.0 - 0.2 x10(3)/[facility] LAB[facility]AT[facility] Blood specimen (specimen) 03/02/2017 2:28 PM EDT 03/02/2017 8:26 PM EDT us Viral Cornejo V, DO HEMATOLOGY ORDERABLES Final Re sult Performing Organization Address City/State/[facility] [place] [address] * SCANNED RADIOLOGY REPORT (06/04/2016 2:58 PM [...] included. PTT 26.0 23.5 - 35.0 second(s) [facility] Comment: Therapeutic range for direct [...] ORDERABLES Final Re sult Performing Organization Address [facility] de Phone Number [facility] [address] [place] [address] * (ABNORMAL) PT / INR (06/03/2016 4:13 PM EST) Only the most recent of3 resultswithin the time period is included. PT 13.2(H) 9.3 - 12.3 second(s) [facility] INR 1.18(H) 0.87 - 1.15 [facility] Comment: Level of Therapy Indications Target INR Range Standard Dose Treatment and prophylaxis of venous 2.0 - 3.0 thrombosis, pulmonary embolism High Dose High risk patients with mechanical 2.5 - 3.5 heart valves Blood specimen (specimen) UPPER LIMB STRUCTURE / Unknown 06/03/2016 4:13 PM EST 06/03/2016 4:13 PM EST Viral Cornejo V, DO HEMATOLOGY ORDERABLES Final Re sult Performing Organization Address [facility] de Phone Number [facility] [address] [place] [address] * POCT URINALYSIS AUTOMATED (06/03/2016 2:31 PM EST) Only the most recent of11 resultswithin the time period is included. Color, UA CLEAR,YELLOW ,ORANGE,RUST SEP OFFICE Clarity, UA CLEAR,CLOUDY SEP OFFICE Glucose, UA N G/DL% SEP OFFICE Bilirubin, UA N POS/NEG SEP OFFICE Ketones, UA N POS/NEG SEP oem sales manager Grav, UA 1.020 1.001 - 1.035 G/DL SEP OFFICE Blood, UA N POS/NEG SEP OFFICE pH, UA 6 5.0 - 8 SEP OFFICE Protein, UA N POS/NEG SEP OFFICE Urobilinogen, UA N 0.2 - 1.0 MG/DL SEP OFFICE Leukocytes, UA N POS/NEG SEP OFFICE Nitrite, UA N POS/NEG SEP OFFICE Appear BF Clear, Slightly Cloudy Clear, Cloudy SEP OFFICE Lot Number [id number] SEP OFFICE Expiration Date 03/17/18 SEP [...] 65%. Mild left atrial dilatation. us Kristopher LOGAN ECHO ORDERABLES Kaur l Result * NM [...] reversible defects. Reversible defects absent. us Kristopher LOGAN NM CARDIAC ORDERABLE S Final Result * ST STRESS TEST LEXISCAN (05/29/2016 9:27 AM EST) Only the most recent of2 resultswithin the time period is included. Anatomical Region Laterality Modality Cardiac Stress T esting 05/29/2016 8:55 AM EST Impressions 05/29/2016 9:55 AM EST Exercise ECG Report [facility] Interpretive Statements Stress Test Lexiscan Reason for [...] by Gurpreet Brannon MD Narrative Procedure Note [place]-Gurpreet Edgar MD - 05/29/2016 IMPRESSION Exercise ECG Report [facility] Interpretive Statements Stress Test Lexiscan Reason for [...] 05/01/2016 12:02 PM HISTORY: R10.2-Pelvic and perineal mtrt-HOH-24-CM PROCEDURE: Transabdominal and transvaginal pelvic ultrasound. FINDINGS: Uterus surgically absent. Ovaries surgically absent. No focal lesions. Procedure Note Gerardo France MD - 05/01/2016 US PELVIS AND TRANSVAGINAL NON OB COMPLETE 05/01/2016 12:02 PM HISTORY: R10.2-Pelvic and perineal aibz-PXQ-48-CM PROCEDURE: Transabdominal and transvaginal pelvic ultrasound. FINDINGS: [...] period is included. Troponin-T <0.01 <=0.00 ng/mL [facility] Comment: Values > or = 0.01 ng/mL have been shown to have prognostic value. Blood specimen (specimen) 04/01/2016 1:58 PM EDT 04/01/2016 2:01 PM EDT us Iftikhar Pike MD CHEMISTRY ORDERABLES Final R esult [facility] [address] [place] [address] * EK EKG 12 LEAD (04/01/2016 1:14 PM EDT) Only the most recent of8 resultswithin the time period is included. Anatomical Region Laterality Modality Other 04/01/2016 1:14 PM EDT Impressions 04/01/2016 6:17 PM EDT Stationary ECG Study [facility] Interpretive Statements SINUS BRADYCARDIA VOLTAGE CRITERIA FOR LVH no old ekg's for comparison Electronically Signed On 04-01-2016 18:17:17 EDT by Ronal Chambers MD Narrative Procedure Note Ronal Chambers MD - 04/01/2016 IMPRESSION Stationary ECG Study [facility] Interpretive Statements SINUS BRADYCARDIA VOLTAGE CRITERIA FOR [...] 02/12/2016 9:17 AM HISTORY: M25.561-Pain in right duka-MCE-53-CM. COMPARE: 02/21/2015. Small joint effusion, similar to prior. Moderately severe degenerative changes, with spurring involving the patella, distal femur, proximal tibia. Marked and progressive narrowing of medial femoral tibial joint space. No fracture or dislocation. Procedure Note Hilary Elena MD - 02/12/2016 XR KNEE RIGHT AP LATERAL AND SUNRISE STANDING 02/12/2016 9:17 AM HISTORY: M25.561-Pain in right tiyi-CTU-71-CM. COMPARE: 02/21/2015. Small joint effusion, similar to prior. Moderately severe degenerativechanges, with spurring involving the patella, distal femur, proximal tibia. Markedand progressive narrowing of medial femoral tibial joint space. No fractureor dislocation. IMPRESSION: Moderate to severe degenerative change, with progression ofmedial joint space narrowing, which is now pronounced. No acute bonyabnormality identified. us Viral Cornjeo V, DO IMG DIAGNOSTIC IMAGING ORDERAB LES [...] Prescribed Drug 1 Lorazepam [facility] Prescribed Drug 2 Percocet(TM) [facility] Prescribed Drug 3 Lorazepam [facility] Prescribed Drug 4 Percocet(TM) [facility] Creatinine, Urine 199.1 > or = 20.0 mg/dL [facility] UA pH 5.84 4.5 - 9.0 [facility] Oxidant NEGATIVE <200 mcg/mL [facility] [employer] [facility] Amphetamines NEGATIVE <500 ng/mL [facility] medMATCH Amphetamines CONSISTENT [facility] Barbiturates NEGATIVE <300 ng/mL [facility] medMATCH Barbiturates CONSISTENT [employer] [facility] Benzodiazepines POSITIVE(A) <100 ng/mL [employer] [facility] ALPHAHYDROXYALPRAZOLAM NEGATIVE <25 ng/mL [facility] medMATCH aOH alprazolam CONSISTENT [employer] [facility] ALPHAHYDROXYMIDAZOLAM NEGATIVE <50 ng/mL [employer] [facility] MEDMATCH AOH MIDAZOLAM CONSISTENT [facility] ALPHAHYDROXYTRIAZOLAM-QU EST NEGATIVE <50 ng/mL [facility] medMATCH aOH triazolam CONSISTENT [facility] Aminoclonazepam NEGATIVE <25 ng/mL [facility] med[facility] Aminoclonazepam CONSISTENT [facility] Hydroxyethylflurazepam NEGATIVE <50 ng/mL [facility] MEDMATCH OH ET FLURAZEPAM CONSISTENT [facility] LORAZEPAM-QUEST 3,970(H) <50 ng/mL [facility] medMATCH Lorazepam CONSISTENT [facility] NORDIAZEPAM-QUEST NEGATIVE <50 ng/mL [facility] medMATCH Nordiazepam CONSISTENT [facility] OXAZEPAM-QUEST NEGATIVE <50 ng/mL [facility] medMATCH Oxazepam CONSISTENT [facility] TEMAZEPAM-QUEST NEGATIVE <50 ng/mL [facility] medMATCH Temazepam CONSISTENT [facility] Marijuana Metabolite NEGATIVE <20 ng/mL [facility] medMATCH Marijuana Metab CONSISTENT [facility] Cocaine Metabolite NEGATIVE <150 ng/mL [facility] medMATCH Cocaine Metab CONSISTENT [facility] Methadone NEGATIVE <100 ng/mL [facility] medMATCH Methadone CONSISTENT [facility] Opiates NEGATIVE CONFIRMED <100 ng/mL [facility] CODEINE-QUEST NEGATIVE <50 ng/mL [facility] medMATCH Codeine CONSISTENT [facility] HYDROCODONE-QUEST NEGATIVE <50 ng/mL [facility] medMATCH Hydrocodone CONSISTENT [facility] HYDROMORPHONE-QUEST NEGATIVE <50 ng/mL [facility] medMATCH Hydromorphone CONSISTENT [facility] MORPHINE-QUEST NEGATIVE <50 ng/mL [facility] medMATCH Morphine CONSISTENT [facility] NORHYDROCODONE NEGATIVE <50 ng/mL [facility] MEDMATCH NORHYDROCODONE CONSISTENT [facility] Oxycodone POSITIVE(A) <100 ng/mL [facility] NOROXYCODONE 2,590(H) <50 ng/mL [facility] MEDMATCH NOROXYCODONE CONSISTENT [facility] Comment:Noroxycodone is a me tabolite of Oxycodone. Oxycodone 626(H) <50 ng/mL [facility] med[facility] Oxycodone CONSISTENT [facility] OXYMORPHONE-QUEST 294(H) <50 ng/mL [facility] medMATCH Oxymorphone CONSISTENT [facility] Comment: Oxymorphone is a metabolite of oxycodone as well as a prescribed drug. medMatch Comments [facility] Comment: [...] Comment Performing Organization Information: Site ID: [facility]: [facility] Address: [address] [place] [address] [place] [address] Director: Maynor Valera Sample Ph.D. us Viral Cornejo V, DO [facility] ORDERABLE (NON-SEH) Final Result Performing Organization Address [facility] de Phone Number [facility] [employer] [address] [place] [address], [facility] * (ABNORMAL) POCT MICROALBUMIN (02/07/2016 2:01 PM EDT) Only the most recent of4 resultswithin the time period is included. Microalb, Ur 20 <=20 MG/L SEP OFFICE Lot Number [id number] SEP OFFICE Expiration Date 01/02 SEP OFFICE SeriAl # SEP OFFICE Urine specimen (specimen) 02/07/2016 2:01 PM EDT us Viral Cornejo V, DO POINT OF CARE TEST ORDERABLES Final Result Performing Organization Address [facility] Co de Phone Number SEP OFFICE * MRI KNEE RIGHT WO [...] within the prepatellar soft tissues. Procedure Note [place], Massimo Denny, MD - 04/10/2015 EXAMINATION: MRI KNEE RIGHT [...] prepatellar soft tissues. us Isaac Washington MD [facility] MRI ORDERABLES Final Result * XR KNEE [...] MODERATE DJD. us Jose Bass DO [facility] DIAGNOSTIC IMAGING ORDERAB LES Final Result * MM MAMMO DIGITAL DIAGNOSTIC RIGHT (08/01/2014 1:54 PM EST) Anatomical Region Laterality Modality Breast Right Mammography 08/02/2014 9:08 AM EST Impressions 08/02/2014 11:34 AM EST : Probably benign (KJR-Pzmvmjzl-4) ~ RECOMMENDATION: Follow-up diagnostic mammogram of the [...] AM EST : Incomplete-need additional imaging evaluation (FVZ-Mepoijrq-2) ~ RECOMMENDATION: Special view mammogram of the [...] recent being 05-25-11. ~ Procedure Note Padmini aMnn MD - 06/21/2014 Procedure:MM MAMMO DIGITAL SCREENING W CAD BILAT ~ Reason for exam: screening (asymptomatic). ~ MM MAMMO DIG SCREEN CAD BILAT Bilateral CC and MLO view(s) were taken. There are scattered fibroglandular densities. There are 1-5 new indeterminate grouped punctate calcifications in the mid right breastupper outer quadrant. Compared to prior studies the most recent -4-78. ~ IMPRESSION: Incomplete-need additional imaging evaluation (HHL-Ojcugvsm-9) ~ RECOMMENDATION: Special view mammogram of the [...] 02:33:41 PM HISTORY: 719.46-Pain in joint, lower kfh-OIG-8-CM. COMPARISON: 10/02/2009. 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 Further joint space narrowing and more pronounced hypertrophic bony change. No joint effusion. No fracture or dislocation. Procedure Note Chana Bright MD - 06/20/2014 XR KNEE LEFT AP LATERAL AND AXIAL Jun 20, 2014 02:33:41 PM HISTORY: 719.46-Pain in joint, lower qwc-EIB-7-CM. COMPARISON: 10/02/2009. Tricompartment osteoarthritis with progression from [...] 20, 2014 02:33:41 PM HISTORY: 729.5-Pain in paxc-VQN-7-CM FINDINGS: No significant osseous, joint or soft tissue abnormality is seen. Procedure Note Allen Smart MD - 06/20/2014 RIGHT HUMERUS 2 VIEWS, Jun 20, 2014 02:33:41 PM HISTORY: 729.5-Pain in oxen-FVF-3-CM FINDINGS: No significant osseous, joint or soft tissue abnormality isseen. IMPRESSION: Normal study. us Viral Cornejo V, DO IMG DIAGNOSTIC IMAGING ORDERAB LES Final Result * LUTEINIZING HORMONE (04/11/2014 2:30 PM EDT) Only the most recent of2 resultswithin the time period is included. LH 24.63 mIU/mL [facility] Comment: Suggested Reference Ranges (mIU/mL) Follicular Phase 2.4 - 12.6 Ovulation Phase 14.0 - 95.6 Luteal Phase 1.0 - 11.4 Postmenopause 7.7 - 58.5 Blood specimen (specimen) UPPER LIMB STRUCTURE / Unknown 04/11/2014 2:30 PM EDT 04/11/2014 9:09 PM EDT us Viral Cornejo V, DO CHEMISTRY ORDERABLES Final Res ult [facility] [address] [place] [address] * FOLLICLE STIMULATING HORMONE LEVEL (04/11/2014 2:30 PM EDT) Only the most recent of2 resultswithin the time period is included. FSH 41.40 mIU/mL [facility] Comment: Suggested Reference Range (mIU/mL) Follicular Phase 3.5 - 12.5 Ovulation Phase 4.7 - 21.5 Luteal Phase 1.7 - 7.7 Postmenopause 25.8 - 134.8 Blood specimen (specimen) UPPER LIMB STRUCTURE / Unknown 04/11/2014 2:30 PM EDT 04/11/2014 9:09 PM EDT us Viral Cornejo V, DO CHEMISTRY ORDERABLES Final Res ult Performing Organization Address City/[facility] Co de Phone Number [facility] [address] [place] [address] * SCANNED RHYTHM STRIPS (11/14/2013 10:02 AM EDT) Only the most recent of4 resultswithin the time period is included. Anatomical Region Laterality Modality Other us Unknown Unknown IMG ECG ORDERABLES Final Result * MAGNESIUM LEVEL (11/13/2013 4:53 AM EDT) Magnesium 1.9 1.6 - 2.4 mg/dL [facility] Blood specimen (specimen) UPPER LIMB STRUCTURE / Unknown 11/13/2013 4:53 AM EDT 11/13/2013 5:08 AM EDT us Juliane Estevez EDITORIAL PROJECT MANAGER CHEMISTRY ORDERABLE S Final Result Performing Organization Address [facility] de Phone Number [facility] [address] [place] [address] * XR CHEST AP PORTABLE (11/12/2013 10:08 [...] No acute findings. Jared James MD [facility] DIAGNOSTIC IMAGING ORDER BUFFY Final Result * [...] noncontrast head CT. Debbie Figueroa MD [facility] CT ORDERABLES Final Res ult * SPECIMEN VALIDITY TEST PANEL-QUEST (08/02/2013 12:00 AM EST) Creatinine, Urine 66.9 > or = 20.0 mg/dL [facility] [place] UA pH 6.28 4.5 - 9.0 [facility] Oxidant NEGATIVE <200 mcg/mL [facility] 08/02/2013 08/04/2013 3:1 9 AM EST Narrative Resulting Agency Comment Performing Organization Information: Site ID: Name: [facility] Address: [address] [place] [address] Director: Tomeka Mckoy PhD us Viral Cornejo V, DO [facility]PDM ORDERABLE (NON-SEH) Final Result Performing Organization Address City/[facility]/ZIP Co de Phone Number ZA GONZALEZ [address] [facility] [place] [address], [facility] * PDM, HEROIN METAB,QN,W/MEDMATCH,U-QUEST (08/02/2013 12:00 AM EST) Prescribed Drug 1 Lorazepam [facility] [place] 6 Acetylmorphine NEGATIVE <10 ng/mL [facility] 6 Acetylmorph CONSISTENT [facility] medMatch Comments [facility] Comment: medMATCH comments are: - present when drug test results may be the result of metabolism of one or more drugs or when results are inconsistent with prescribed medication(s) listed. - may be blank when drug results are consistent with prescribed medication(s) listed. 08/02/2013 08/04/2013 3:1 9 AM EST Narrative Resulting Agency Comment Performing Organization Information: Site ID: Name: [facility] Address: [address] [place] [address] Director: Tomeka Mckoy PhD us Viral Cornejo V, DO [facility] ORDERABLE (NON-SEH) Final Result Performing Organization Address City/[facility]/ZIP Co de Phone Number [facility]A MENDENHALL [employer] [address] [facility] [place] [address], [facility] * PDM,METHYLPHENIDATE METAB,QN,W/MEDMATCH,U-QUEST (08/02/2013 12:00 AM [...] Comment Performing Organization Information: Site ID: Name: [facility] [employer] Address: [address] [facility] [place] [address] Director: Tomeka Mckoy PhD us Viral Cornejo V, DO [facility] ORDERABLE (NON-SEH) Final Result Performing Organization Address [facility] Phone Number [facility] MessagePartyELIECERENCOM[facility] [address] [facility] [place] [address], [facility] * PDM, COCAINE METAB, W/CONF,W/MEDMATCH,U-QUEST (08/02/2013 12:00 AM EST) [facility] Prescribed Drug 1 Lorazepam [facility] [place] [...] Comment Performing Organization Information: Site ID: Name: [facility] [facility] Address: [address] [facility] [place] [address] Director: Tomeka Mckoy PhD us Viral Cornejo V, DO [facility] ORDERABLE (NON-SEH) Final Result Performing Organization Address [facility] Co de Phone Number ZA [facility]WL[facility] [address] [place] [address], [facility] * (ABNORMAL) PDM,BENZODIAZEPINES W/CONF,W/MEDMATCH,U-QUEST (08/02/2013 12:00 [...] Comment Performing Organization Information: Site ID: Name: [facility] Address: [address] [place] [address] Director: Tomeka Mckoy PhD us Viral Cornejo V, DO [facility] ORDERABLE (NON-SEH) Final Result Performing Organization Address [facility]/ZIP Co de Phone Number ZA MENDENHALL [facility]KARIMESL[facility] [address] [place] [address], [facility] * PDM, AMPHETAMINES, W/CONF,W/MEDMATCH,U-QUEST (08/02/2013 12:00 [...] Comment Performing Organization Information: Site ID: Name: [facility] [facility] Address: [address] [facility] [place] [address] Director: Tomeka Mckoy PhD us Viral Cornejo V, DO [facility] ORDERABLE (NON-SEH) Final Result Performing Organization Address [facility] de Phone Number ZA MessageParty-KARIMEWLydia [address] [place] [address], [facility] * (ABNORMAL) PDM, OXYCODONE, W/CONF,W/MEDMATCH,U-QUEST (08/02/2013 [...] Information: Site ID: Name: Za Gonzalez Address: [address] [place] [address] [place] [address] Director: Tomeka Mckoy PhD us Viral Cornejo V, DO [facility] ORDERABLE (NON-SEH) Final Result ZA GONZALEZ [address] [place] [address], [facility] * PDM, OPIATES, W/CONF,W/MEDMATCH,U-QUEST (08/02/2013 12:00 [...] Comment Performing Organization Information: Site ID: Name: [employer] Address: [address] [place] [address] Director: Tomeka Mckoy PhD us Viral Cornejo V, DO [facility] ORDERABLE (NON-SEH) Final Result Performing Organization Address [facility] Co de Phone Number [facility]NTH[facility]POINT [facility] [address] [place] [address], [facility] * PDM, METHADONE, W/CONF,W/MEDMATCH,U-QUEST (08/02/2013 12:00 [...] Comment Performing Organization Information: Site ID: Name: [employer] Address: [address] [place] [address] Director: Tomeka Mckoy PhD us Viral Cornejo V, DO [facility] ORDERABLE (NON-SEH) Final Result Performing Organization Address [facility] Co de Phone Number [facility]oliLEROYENCOM[facility] [address] [facility] [place] [address], [facility] * PDM,MARIJUANA METAB W/CONF,W/MEDMATCH,U-QUEST (08/02/2013 12:00 AM EST) Prescribed Drug 1 Lorazepam [facility] [place] Marijuana Metabolite NEGATIVE <20 ng/mL [facility] medMATCH Marijuana Metab CONSISTENT [facility] [place] medMatch Comments [facility] Comment: medMATCH comments are: - present when drug test results may be the result of metabolism of one or more drugs or when results are inconsistent with prescribed medication(s) listed. - may be blank when drug results are consistent with prescribed medication(s) listed. 08/02/2013 08/04/2013 3:1 9 AM EST Narrative Resulting Agency Comment Performing Organization Information: Site ID: Name: [employer] CommunicationsKatelin Address: [address] [place] [address] [place] [address] Director: Tomeka Mckoy PhD us Viral Cornejo V, DO [facility] ORDERABLE (NON-SEH) Final Result ZA MessagePartyKATELIN [address] [place] [address], [facility] * SCANNED HOLTER MONITOR (06/26/2013 3:48 PM EST) Anatomical Region Laterality Modality Other 06/26/2013 3:48 PM EST us Unknown Unknown IMG HOLTER MONITOR ORDERABLES Fi nal Result * HOLTER MONITOR RECORDING AND INTERPRETATION (06/19/2013 3:28 [...] PVC's. No PAC's. us Kristopher Crump MD IM HOLTER MONITOR ORDER BUFFY Final Result * [...] is included. LDL Calculated 94 <=100 mg/dL [facility] Comment: < 100 Optimal 100 - 129 Near or above optimal 130 - 159 Borderline High 160 - 189 High >= 190 Very High Blood specimen (specimen) 01/28/2013 11:50 AM EDT 01/28/2013 6:50 PM EDT us Viral Cornejo V, DO CHEMISTRY ORDERABLES Final Res ult [facility] [address] [place] [address] * POCT RAPID STREP A (09/28/2012 2:17 PM EDT) Strep A Ag None Detected None Detected Pos/Neg SEP OFFICE Lot Number SEP OFFICE Expiration Date SEP OFFICE SeriAl # SEP OFFICE Control Line Yes/No SEP OFFICE 09/28/2012 2:17 PM EDT Karen Gonzalez MD POINT OF CARE TEST ORDERABLES Final Result Performing Organization Address City/[facility]/ZIP Co de Phone Number SEP OFFICE * POCT INFLUENZA A/B (09/28/2012 2:16 PM EDT) Influenza A Ag negative SEP OFFICE Influenza B Ag negative SEP OFFICE Lot Number SEP OFFICE Expiration Date SEP OFFICE 09/28/2012 2:16 PM EDT Karen Gonzalez MD POINT OF CARE TEST ORDERABLES Final Result Performing Organization Address City/[facility]/ZIP Co de Phone Number SEP OFFICE * (ABNORMAL) PDM PROFILE 1 [...] Performing Organization Information: Site ID: Name: Za BIME AnalyticsKatelin Address: [address] [place] [address] [place] [address] Director: Tomeka Mckoy PhD Ar Vaca MD [facility] ORDERABLE (NON -SEH) Final Result ZA GONZALEZ [address] [place] [address], [facility] * (ABNORMAL) PDM,BENZODIAZEPINE, QN,W/MEDMATCH,U-QUEST (06/01/2012 1:38 [...] Performing Organization Information: Site ID: KP Name: [facility] CommunicationsMilaEmerson Address: [address] [place] [address] Director: Tomeka Mckoy PhD us Ar Vaca MD [facility]PDM ORDERABLE (NON -[facility]) Final Result Performing Organization Address City/[facility]/ZIP Co de Phone Number ZA MessagePartyMILAW[address] [address] * ESTRADIOL LEVEL (03/25/2012 3:44 PM EDT) Estradiol Lvl 17 pg/mL [facility] Comment: Early Follicular 20 - 150 pg/mL Late Follicular 40 - 350 pg/mL Midcycle Peak 120 - 400 pg/mL Luteal Phase 30 - 200 pg/mL Postmenopause 0 - 50 pg/mL Males 0 - 50 pg/mL Blood specimen (specimen) UPPER LIMB STRUCTURE / Unknown 03/25/2012 3:44 PM EDT 03/25/2012 8:19 PM EDT Ar Vaca MD CHEMISTRY ORDERABLES Fin al Result [facility] [address] [place] [address] * CT ABDOMEN PELVIS W CONTRAST (03/24/2012 [...] 11:14:41 AM HISTORY: 789.01-Abdominal pain, right upper fsedkqkn-IAN-1-CM. 75 mL of Isovue-370 administered. Oral contrast [...] 11:14:41 AM HISTORY: 789.01-Abdominal pain, right upper zofrmbzd-VRF-3-CM. 75 mL of Isovue-370 administered. Oral contrast was given.. COMPARISON: 05/11/2011. The liver and spleen are unremarkable. There is a small accessory spleen,unchanged. There's been a cholecystectomy. Kidneys and pancreas show no significantabnormality. No free air or free fluid is present. Opacified bowel loops are normal. No pelvic mass oradenopathy is seen. There's been a hysterectomy. IMPRESSION: Unremarkable CT abdomen and pelvis. us Harshil Sanchez MD IMG CT ORDERABLES Final Resu lt * XR LUMBAR SPINE AP AND LATERAL [...] degenerative changes are present. Procedure Note Ascencion Clolins MD - 11/02/2011 Lumbar spine, 3 views, [...] ORDERABLES Final Result * (ABNORMAL) VITAMIN D, 39-BVPPAST-SJWU (12/25/2010 3:03 PM EDT) Vit D 25 OH 27(L) 30 - 80 ng/mL [facility] Comment: REFERENCE INTERVAL: Vitamin D, 25-Hydroxy [...] Vaca MD CHEMISTRY ORDERABLES Fin al Result [facility] [address] [place] [address] * TROPONIN-I (11/29/2010 9:27 AM EDT) Pathologist [facility] Troponin-I 0.00 <=0.06 ng/mL [facility] Comment: Troponin Level Significance < 0.01 [...] ORDERABLES Final R esult Performing Organization Address [facility] de Phone Number [facility] [address] [place] [address] * D-DIMER (11/29/2010 9:27 AM EDT) D-Dimer <230 <=230 ng/mL [facility] Comment: This test has been clinically validated by the director transition and approved by the FDA for exclusion [...] HEMATOLOGY ORDERABLES Final Result Performing Organization Address [facility] Phone Number [facility] [address] [place] [address] * XR FOOT RIGHT AP LATERAL AND [...] gout or fracture Plantar os calcis spur. Ar Vaca MD IMG DIAGNOSTIC IMAGING O [...] AM EDT Bone densitometry was performed on Conject No comparisons available. CLINICAL INDICATIONS: Patient is [...] osteoporotic 1.6% Hip fracture 1.6% Procedure Note Flor Boyd R - 11/07/2010 Bone densitometry was performed on DNA Direct Discovery No comparisons available. CLINICAL INDICATIONS: Patient [...] PA-C / Maulik Keenan M.D., ORESTES, CCD Ar Vaca MD IMG DEXA ORDERABLES Kaur [...] (FINAL) (03/23/2010 8:55 PM EDT) Anticonvulsants Absent [facility] Antidepressants Absent [facility] Antihistamines Absent [facility] Cardiac Depressants/Beta Blockers Absent [facility] Barbiturates/Hypnot ics Absent [facility] Opiates/Narcotic Analgesics Absent [facility] Other Analgesics Absent [facility] Stimulants Absent [facility] Tranquilizers Present(A) [facility] Comment: Tranquilizers _ Benzodiazepine Class _ Carisoprodol _ Meprobamate x Phenothiazine Metabolites (unconfirmed) Miscellaneous Absent [facility] Urine specimen (specimen) 03/23/2010 8:55 PM EDT 03/24/2010 6:28 PM EDT Gabby Capone MD URINE ORDERABLES Final Resul t [facility] [address] [place] [address] * (ABNORMAL) DRUG SCREEN RAPID (03/23/2010 8:55 PM EDT) Tricyclic Rapid Absent [facility] Barbiturate Rapid Absent [facility] Methadone Rapid Absent [facility] Benzodiazepines Rapid Present(A) [facility] Cannabinoid Rapid Absent [facility] Opiate Rapid Absent [facility] Amphetamine Rapid Absent [facility] Cocaine Rapid Absent [facility] Propoxyphene Rapid Absent [facility] Methamphetamine Rapid Absent [facility] Urine specimen (specimen) 03/23/2010 8:55 PM EDT 03/23/2010 9:00 PM EDT Gabby Capone MD URINE ORDERABLES Final Resul t Performing Organization Address [facility] Co de Phone Number [facility] [address] [place] [address] * (ABNORMAL) .DRUG SCREEN URINE (PRELIMINARY) (03/23/2010 8:55 PM EDT) Cannabinoid Metabolites Absent 50 ng/mL [facility] Benzodiazepine Class Absent 200 ng/mL [facility] Cocaine Metab Absent 300 ng/mL [facility] Opiates Class Present(A) 300 ng/mL [facility] Barbiturate Class Absent 200 ng/mL [facility] Amphetamine Class Absent 1000 ng/mL [facility] Urine specimen (specimen) 03/23/2010 8:55 PM EDT 03/24/2010 6:28 PM EDT Gabby Capone MD URINE ORDERABLES Final Resul t Performing Organization Address City/[facility] Co de Phone Number [facility] [address] [place] [address] * ALCOHOL MEDICAL (03/23/2010 7:51 PM EDT) Alcohol Medical <10 mg/dL [facility] Blood specimen (specimen) UPPER LIMB STRUCTURE / Unknown 03/23/2010 7:51 PM EDT 03/23/2010 7:51 PM EDT Gabby Capone MD CHEMISTRY ORDERABLES Final R esult Performing Organization Address City/[facility]/ZIP Co de Phone Number [facility] [address] [place] [address] * ACETAMINOPHEN LEVEL (03/23/2010 7:51 PM EDT) Acetaminophen Lvl <10 <=30 mcg/mL [facility] Comment: Toxic Overdose: Acetamin levels > 200 ug/mL 4 hours after ingestion - Hepatic necrosis is probable. Acetamin levels > 50 ug/mL 12 hours after ingestion - Hepatic necrosis is probable. Blood specimen (specimen) UPPER LIMB STRUCTURE / Unknown 03/23/2010 7:51 PM EDT 03/23/2010 9:10 PM EDT Gabby Capone MD CHEMISTRY ORDERABLES Final R esult Performing Organization Address [facility]/ZIP Co de Phone Number [facility] [address] [place] [address] * SALICYLATE LEVEL (03/23/2010 7:51 PM EDT) Salicylate <1.5 mg/dL [facility] Comment: Therapeutic Range: < 20 mg/dL Mild Toxicity: 30 - 40 mg/dL Severe Toxicity > 60 mg/dL Blood specimen (specimen) UPPER LIMB STRUCTURE / Unknown 03/23/2010 7:51 PM EDT 03/23/2010 9:10 PM EDT us Gabby Capone MD CHEMISTRY ORDERABLES Final R esult Performing Organization Address City/[facility] Co de Phone Number [facility] [address] [place] [address] * SCANNED OR REPORT (03/04/2010 12:00 AM [...] 5:35 PM EDT Sinus rhythm Normal ECG Immigration Guard- VALERIA OSORIO Reading Physician- VALERIA OSORIO Released Date Time- 01/01/10 173 Procedure Note Valeria Osorio MD - 01/01/2010 Sinus rhythm Normal ECG Immigration Guard- VALERIA Thomas Physician- VALERIA OSORIO Released Date Time- 01/01/101734 Efrem Zimmerman MD [facility] HISTORICAL Fi nal Result * MM [...] compared with prior studies. IMPRESSION- Benign finding (RWV-Jalatotz-0) Stable mass right breast. RECOMMENDATION- Routine screening [...] reviewed by a Radiologist and CAD. Vangie Thomas Physician- BOYD RAY MD Released Date Time12/30/09 1444 Procedure Note Boyd Ray R - 12/30/2009 Procedure-GC MM DIG SCR [...] compared with prior studies. IMPRESSION- Benign finding (BDG-Zwzktebp-5) Stable mass right breast. RECOMMENDATION- Routine screening [...] reviewed by a Radiologist and CAD. Vangie Thomas Physician- BOYD RAY MD Released Date Time12/30/09 1444 Ar Vaca MD [facility] Final Result * MR LOW EXT ANY [...] meniscus, but no evidence of discrete tear. Immigration Guard- GRZEGORZ Thomas Physician- JEFFERY CIFUENTES M.D. Released [...] meniscus, but no evidence of discrete tear. Immigration Guard- GRZEGORZ Thomas Physician- JEFFERY CIFUENTES M.D. Released Date Time- 10/11/09 1531 Ar Vaca MD [facility] Final Result * XR KNEE GC (10/02/2009 [...] Impression- Stable left knee. Mild tricompartmental osteoarthritis. Immigration Guard- GRZEGORZ Thomas Physician- DISHA CORDERO M.D. Released Date Time- 10/02/09 0956 Procedure Note Disha Cordero - 10/08/2009 Four view left knee, 10/02/2009. Indications- Trauma, pain. Findings- 4 views of the left knee are compared to previous exam, 09/25/2009. No significant interval change. Mild tricompartmental osteoarthritis, which is stable. No acute fractures, dislocations or joint effusion. Impression- Stable left knee. Mild tricompartmental osteoarthritis. Immigration Guard- GRZEGORZ Thomas Physician- DISHA CORDERO M.D. Released Date Time- 10/02/09 [address] [facility] HISTORICAL Final Result * CT ABD/PELVIS ALARM FIELD TECHNICIAN (04/18/2009 8:20 AM EDT) Only the most [...] no significant change from prior 02/06/2009 exam. Immigration Guard- CARMINA KAYE Reading Physician- HILARY ELENA MD [...] no significant change from prior 02/06/2009 exam. Immigration Guard- CARMINA Thomas Physician- HILARY ELENA MD Released Date Time- 04/18/09 1619 us Cathleen Das IMG [facility] RAD HISTORICAL Kaur l Result * [...] Prior cholecystectomy. Impression- Nonspecific, nonobstructive abdominal series. Immigration Guard- CHANA Thomas Physician- SAJAN GONZALEZ DO Released [...] Prior cholecystectomy. Impression- Nonspecific, nonobstructive abdominal series. Immigration Guard- CHANA Thomas PhysicianMargaux GONZALEZ DO Released Date Time- 04/16/095 Cathleen [facility] SHOAIB zhong Result * CC CARDIAC PROCEDURE (12/27/2008 [...] area over the right femoral artery. A 5-Malaysian hemostasis sheath was placed in the right femoral artery using a modified Seldinger technique. Selective coronary angiography of the right and left coronary arteries was performed using the standard technique. A 5-Malaysian angled pigtail catheter was used to perform [...] CC- Dr. Crump and Dr. Froilan Vaca. Immigration Guard- LAURIE Thomas Physician- KRISTOPHER CRUMP MD Released [...] area over the right femoral artery. A 5-Malaysian hemostasis sheath was placed in the right femoral artery using a modified Seldinger technique. Selective coronary angiography of the right and left coronary arteries was performed using the standard technique. A 5-Malaysian angled pigtail catheter was used to perform [...] CC- Dr. Crump and Dr. Froilan Vaca. Immigration Guard- LAURIE BATISTA Reading Physician- KRISTOPHER CRUMP MD Released Date Time- 12/27/08 [address] MD [facility] CARD HISTOR ICAL Final Result * CT HEAD ALARM FIELD TECHNICIAN GC (10/30/2008 4:40 PM EDT) Anatomical Region [...] abnormal brain attenuation are identified. Impression- Normal. Immigration Guard- CHANO MONTGOMERY Reading Physician- CHOLO KEENAN M.D. Released Date Time- 10/30/081957 Procedure [...] abnormal brain attenuation are identified. Impression- Normal. Immigration Guard- CHANO MONTGOMERY Reading Physician- CHOLO KEENAN M.D. Released Date Time- 10/30/081957 us Viral Cornejo V, DO [facility] STAR RAD HISTORICAL Fi nal Result * [...] pinpoint area of pain. IMPRESSION- Benign finding (RVZ-Skmfdfub-9) Annual screening mammogram recommended. RECOMMENDATION- Routine screening [...] was reviewed by a Radiologist and CAD. Immigration Guard- MARY ANN YADAV Reading Physician- DELLA OROZCO [...] pinpoint area of pain. IMPRESSION- Benign finding (KSU-Ofcjjwla-5) Annual screening mammogram recommended. RECOMMENDATION- Routine screening [...] was reviewed by a Radiologist and CAD. Immigration Guard- MARY ANN YADAV Reading Physician- DELLA OROZCO MD. Released Date Time- 10/17/08 1627 Ar Vaca MD IM[facility] RAD HISTORI [facility] Final Result * ST PHARM [...] report. 3. Adenosine protocol. Ebony Villavicencio 10-15-08 Immigration Guard- ISMAEL Thomas Physician- KRISTOPHER CRUMP MD Released [...] report. 3. Adenosine protocol. Ebony Villavicencio 10-15-08 Immigration Guard- ISMAEL Thomas Physician- KRISTOPHER CRUMP MD Released Date Time- 10/16/08 0931 us Kristopher Crump MD IMG [facility] STAR CARD HISTOR ICAL Final Result [...] is no pericardial effusion. Ebony Villavicencio. 10-15-08 Immigration Guard- ISMAEL HENRY Reading Physician- KRISTOPHER CRUMP MD [...] is no pericardial effusion. Ebony Villavicencio. 10-15-08 Immigration Guard- ISMAEL Thomas Physician- KRISTOPHER CRUMP MD Released Date Time- 10/15/08 1549 Kristopher Crump MD [facility] STAR CARD HISTOR ICAL Final Result * NM NUCLEAR CARD PROC ALARM FIELD TECHNICIAN GC (10/11/2008 10:51 AM EDT) Anatomical Region [...] SPECT gated myocardial perfusion scan is 45-75%. Immigration [facility] Physician- KRISTOPHER CRUMP MD Released Date [...] SPECT gated myocardial perfusion scan is 45-75%. Immigration Guard- CHANA DELGADO Reading Physician- KRISTOPHER CRUMP MD Released Date Time- 10/16/0808 Kristopher Crump MD [facility] Final Result * XR KNEE (04/12/2007 1:15 PM EDT) Anatomical Region Laterality Modality Other 04/12/2007 1:15 PM EDT Narrative 04/12/2007 2:04 PM EDT Right knee - 3 views History- Pain. Findings- There are spurs at the patellofemoral joint. Very small spurs are seen medially and laterally. Impression- No acute findings. Patellofemoral osteoarthritis. Immigration Guard- LAURIE BATISTA Reading Radiologist- DONNA HIGGINS MD Released Date Time- 04/12/073 Procedure Note Donna Higgins - 09/25/2009 Right knee - 3 views History- Pain. Findings- There are spurs at the patellofemoral joint. Very small spurs are seen medially and laterally. Impression- No acute findings. Patellofemoral osteoarthritis. Immigration Guard- LAURIE BATISTA Reading Radiologist- DONNA HIGGINS MD Released Date Time- 04/12/[address] [facility] RAD HISTORI [facility] Final Result * MM MAMMO DIAG [...] compared with prior studies. IMPRESSION- Probably benign (ZSR-Odwsdpud-2) RECOMMENDATION- Routine screening mammogram in 6 months. * The patient with a palpable abnormality, unexplained by breast imaging, should be managed on clinical basis by the attending physician. * Breast imaging has a false negative rate of 15%. * The patient was notified by mail of the results of this examination. The mammogram was reviewed by a Radiologist and CAD. Immigration Guard- GRZEGORZ Thomas Radiologist- ROBERT GIRON MD Released [...] compared with prior studies. IMPRESSION- Probably benign (EEV-Lygdwmvi-3) RECOMMENDATION- Routine screening mammogram in 6 months. * The patient with a palpable abnormality, unexplained by breast imaging, should be managed on clinical basis by the attending physician. * Breast imaging has a false negative rate of 15%. * The patient was notified by mail of the results of this examination. The mammogram was reviewed by a Radiologist and CAD. Immigration Guard- GRZEGORZ GALLOWAY Reading Radiologist- ROBERT GIRON MD Released Date Time- 03/24/07 1454 Ar Vaca MD [facility] STAR RAD HISTORI [place] Final Result * CT ABD/PELVIS ALARM FIELD TECHNICIAN (09/15/2006 9:15 AM EST) Only the most [...] CT scan of the abdomen and pelvis. Immigration Guard- GRZEGORZ Thomas Radiologist- CHOLO KEENAN M.D. Released Date Time- 09/15/061711 Procedure Note JakwellingtonCholoMaulik R - 09/25/2009 CT scan of the abdomen [...] CT scan of the abdomen and pelvis. Immigration Guard- GRZEGORZ Thomas Radiologist- CHOLO KEENAN M.D. Released Date Time- 09/15/061711 Ar Vaca MD [facility] Final Result * FL STOMACH-SMALL BOWEL ALARM FIELD TECHNICIAN (09/08/2006 8:05 AM EST) Anatomical Region Laterality [...] upper GI and small bowel follow through. Immigration Guard- GRZEGORZ Thomas Radiologist- CHAN HILL MD Released [...] upper GI and small bowel follow through. Immigration Guard- GRZEGORZ Thomas Radiologist- CHAN HILL MD Released Date Time- 09/08/06 1404 Ar [facility]aca MD [facility] Final Result * XR FLAT AND [...] gas pattern unremarkable. Impression- Unremarkable abdominal series. Immigration GuardMargaux Thomas Radiologist- HILARY ELENA MD Released Date Time- 08/18/06 1101 Procedure Note Hilary Elena - 09/25/2009 Three view abdominal series, 08/17/06 History- Pain and swelling in right abdomen. 1. Right upper quadrant clips compatible with prior cholecystectomy. Innumerable pelvic calcifications, likely representing phleboliths. 2. No free air. No soft tissue masses. Bowel gas pattern unremarkable. Impression- Unremarkable abdominal series. Immigration GuardMargaux Thomas Radiologist- HILARY ELENA MD Released Date Time- 08/18/06 1101 Ar Vaca MD [facility] Final Result * MM MAMMO DIAG [...] bilateral breast reduction surgery. IMPRESSION- Benign finding (MWC-Nylsibpk-3) RECOMMENDATION- Routine screening mammogram in 1 year. [...] Vangie Limon- TIM CARLOS MD Released Date Time03/04/06 1245 Procedure Note Tim Carlos D - 09/25/2009 Procedure-MM MAMMO DIAG BILATERAL Mammogram Diagnostic Bilateral CC and MLO view(s) were taken. There are scattered fibroglandular densities. There is a benign appearing architectural distortion in the upper inner quadrant of the right breast consistent with post surgical change. No suspicious calcifications. There has been bilateral breast reduction surgery. IMPRESSION- Benign finding (TCY-Nupbyhwm-6) RECOMMENDATION- Routine screening mammogram in 1 year. Manage patient on clinical basis. Images fail to explain clinical findings. * The patient with a palpable abnormality, unexplained by breast imaging, should be managed on clinical basis by the attending physician. * Breast imaging has a false negative rate of 15%. * The patient was notified by mail of the results of this examination. Vangie CARLOS MD Released Date Time- 03/04/[address] [facility] HISTORI [place] Final Result * CT CHEST ALARM FIELD TECHNICIAN (03/01/2006 12:48 PM EDT) Anatomical Region Laterality [...] Impression- Unremarkable CT angiogram of the chest. Immigration Guard- GRZEGORZ Thomas Radiologist- ROBERT GIRON MD Released [...] Impression- Unremarkable CT angiogram of the chest. Immigration Guard- GRZEGORZ Thomas Radiologist- ROBERT GIRON MD Released Date Time- 03/01/06 1835 Dung العلي MD [facility] HISTORICAL Final Result * XR CHEST PORTABLE (03/01/2006 11:30 AM EDT) Anatomical Region Laterality Modality Other 03/01/2006 11:3 0 AM EDT Narrative 03/01/2006 12:39 PM EDT RM 2 Portable chest 03/01/2006 at 11-31 a.m. COMPARISON- None currently available. HISTORY- Chest pain. Lungs are clear. Cardiomediastinal silhouette is within normal limits. IMPRESSION- No acute disease. Immigration Guard- JENNIFER Thomas Radiologist- CHAN HILL MD Released Date Time- 03/01/06 1637 Procedure Note Chan Hill - 09/25/2009 RM 2 Portable chest 03/01/2006 at 11-31 a.m. COMPARISON- None currently available. HISTORY- Chest pain. Lungs are clear. Cardiomediastinal silhouette is within normal limits. IMPRESSION- No acute disease. Immigration Guardluh HILL MD Released Date Time- 03/01/06 163 us Dung العلي MD [facility] HISTORICAL Final Result * US [...] infiltration of the liver. Status post cholecystectomy. Immigration Guard- KATHYA Thomas Radiologist- TIM CARLOS MD Released Date Time- 11/19/051619 Procedure Note Tim Carlos D - 09/25/2009 November 19, 2005. Ultrasound right upper quadrant. History- Pain and nausea. Prior cholecystectomy. The common duct measures 4 mm in diameter. Intrahepatic bile ducts are not dilated. There is increased liver echogenicity consistent with fatty infiltration. No focal liver abnormality is seen. Limited images of the pancreas and right kidney appear normal. Conclusion- Fatty infiltration of the liver. Status post cholecystectomy. Immigration GuardMargaux Thomas Radiologist- TIM CARLOS MD Released Date Time- 11/19/051619 Ar [facility]aca MD [facility] Final Result * FL BARIUM [...] with tertiary contractions. Small, sliding-type hiatal hernia. Immigration Guard- RAMONITA COLE MD Released Date Time- 10/13/051248 Procedure Note Ascencion Cole W - 09/24/2009 PT IN WAITING AREA Barium swallow 10/13/2005- History- Abdominal pain, 789.0. No filling defects or areas of mucosal destruction in the esophagus. Small, sliding-type hiatal hernia. No spontaneous gastroesophageal reflux. Mild esophageal dysmotility with tertiary contractions. Opinion- Mild esophageal dysmotility with tertiary contractions. Small, sliding-type hiatal hernia. Immigration GuardMargaux COLE MD Released Date Time- 10/13/05 124 Kwame Mcallister MD [facility] YOLISI [facility] Final Result * FL SMALL BOWEL (10/10/2005 8:00 AM EST) Anatomical Region Laterality Modality Other 10/10/2005 8:00 AM EST Narrative 10/10/2005 1:14 PM EST -PT [facility] Small bowel examination, 10/10/2005 Preliminary film of the abdomen shows a moderate amount of stool in the colon which is most prominent in the right hemicolon. Barium traverses the small bowel in 2 hours. No filling defects or areas of mucosal destruction are seen in the small bowel. Terminal ileum normal. Opinion- Normal. Immigration Guard- RAMONITA Thomas Radiologist- ASCENCION COLE MD Released Date Time- 10/10/05 1424 Procedure Note Ascencion Cole W - 09/24/2009 -PT [facility] Small bowel examination, 10/10/2005 Preliminary film of the abdomen shows a moderate amount of stool in the colon which is most prominent in the right hemicolon. Barium traverses the small bowel in 2 hours. No filling defects or areas of mucosal destruction are seen in the small bowel. Terminal ileum normal. Opinion- Normal. Immigration GuardMargaux Thomas Radiologist- ASCENCION COLE MD Released Date Time- 10/10/[address] [facility]ISTORI [place] Final Result * XR ANKLE (03/31/2005 10:34 AM EDT) Anatomical Region Laterality Modality Other 03/31/2005 10:3 4 AM EDT Narrative 04/02/2005 10:31 AM EDT Right ankle, 03/31/05 Indication- Pain. Findings- Three views of the right ankle demonstrate a plantar calcaneal spur. Degenerative changes tip of the right fibula. No fractures, dislocations, joint effusion, or significant soft tissue swelling. Immigration Guard- RAMONITA Thomas Radiologist- DISHA CORDERO M.D. Released Date Time- 04/02/05 103 Procedure Note Disha Cordero - 09/24/2009 Right ankle, 03/31/05 Indication- Pain. Findings- Three views of the right ankle demonstrate a plantar calcaneal spur. Degenerative changes tip of the right fibula. No fractures, dislocations, joint effusion, or significant soft tissue swelling. Immigration Guard- RAMONITA Thomas Radiologist- DISHA CORDERO M.D. Released Date Time- 04/02/05 1031 Ar [facility] [employer] RAD HISTORI [facility] Final Result * MM [...] studies. IMPRESSION- No radiographic evidence of malignancy (KAF-Virdqumk-0) RECOMMENDATION- Routine screening mammogram in 1 year. * The patient with a palpable abnormality, unexplained by breast imaging, should be managed on clinical basis by the attending physician. * Breast imaging has a false negative rate of 15%. * The patient was notified by mail of the results of this examination. The mammogram was reviewed by a Radiologist and CAD. Vangie Limon- CHOLO KEENAN M.D. Released Date Time- 02/01/051705 Procedure Note Maulik Keenan - 09/24/2009 Procedure-MM MAMMO SCREEN W/CAD PANEL. Screening CAD Mammogram Bilateral CC and MLO view(s) were taken. There are scattered fibroglandular densities. Benign skin calcifications. No significant changes when compared with prior studies. IMPRESSION- No radiographic evidence of malignancy (BXK-Jjsevuri-1) RECOMMENDATION- Routine screening mammogram in 1 year. * The patient with a palpable abnormality, unexplained by breast imaging, should be managed on clinical basis by the attending physician. * Breast imaging has a false negative rate of 15%. * The patient was notified by mail of the results of this examination. The mammogram was reviewed by a Radiologist and CAD. Vangie KEENAN M.D. Released Date Time02/01/051705 Ar Vaca MD [facility] Final Result Visit Diagnoses Diagnosis Start Date [...] 05/25/2016 Morbid obesity due to excess calories ([facility]) 05/25/2016 Precordial pain 05/25/2016 MICHAEL (obstructive sleep [...] stage 2 chronic kidney disease, unspecified whether fdc insulin use (HCC) 08/05/2018 Acute non-recurrent sinusitis [...] stage 2 chronic kidney disease, unspecified whether fdc insulin use (HCC) 08/05/2018 Obesity, Class III, [...] obesity with body mass index of 40.0-49.9 ([facility]) 09/18/2020 UTI (urinary tract infection), uncomplicated Urinary [...] with body mass index of 40.0-49.9 (HCC) 08/24/2022 Prediabetes Other abnormal glucose 08/24/2022 Dizziness [...] subsequent Routine general medical examination at a [facility] 11/30/2024 Hypertension Unspecified essential hypertension 11/30/2024 Acquired hypothyroidism Unspecified hypothyroidism 11/30/2024 Elevated uric acid in blood Other abnormal blood chemistry 11/30/2024 Urinary frequency 11/30/2024 Thrush Candidiasis of mouth 11/30/2024 Acute recurrent cystitis Acute cystitis 11/30/2024 Morbid obesity with body mass index of 40.0-49.9 ([facility]) 11/30/2024 Leukocytosis, unspecified type 12/01/2024 Rash Rash and other nonspecific skin eruption 12/06/2024 Prediabetes Other abnormal glucose 12/07/2024 Systemic lupus erythematosus, unspecified SLE type, unspecified organ involvement status ([facility] [facility]) 12/19/2024 Dermatitis Contact dermatitis and other eczema, due to unspecified cause 12/19/2024 Acute vaginitis Vaginitis and vulvovaginitis, unspecified 12/21/2024 Acute bacterial sinusitis Acute sinusitis, unspecified 12/21/2024 Nausea Nausea alone 12/21/2024 Rash Rash and other nonspecific skin eruption 01/01/2025 Dizziness Dizziness and giddiness 01/25/2025 Nausea Nausea alone 02/17/2025 Unspecified essential hypertension 11/13/2013 Type II or [...] EDT) No Sandy Chen LPN Care Teams Machine Shop Apprentice Relationship Specialty Start Date End Date Ar Vaca MD [address] [place] [address] PCP - General Family Medicine 04/28/22 Kory Rodriguez MD [address] [facility] [address] [place] [address] Consulting Physician Internal Medicine-Nephrology 10/03/20
--- OUTSIDE RECORDS SUMMARY | 2025-03-05 14:25 | XMS_ITS | Clinical Summary ---
Author Organization [facility] Address [address] [place] [address] Care Team Providers Care Technical Project Coordinator Name Role Phone Jose Cornejo Primary Care Provider [phone] Allergies Active Allergy Reactions Criticality Noted Date Comments Codeine Itching 04/11/2020 Erythromycin GI Intolerance 03/13/2010 Levofloxacin GI Intolerance 04/11/2020 Methadone Hallucinations 10/19/2013 Morphine Itching 09/08/2013 Penicillins Nausea And Vomiting 03/13/2010 Sulfa Antibiotics GI Intolerance 03/13/2010 Medications allopurinol (ZYLOPRIM) 100 MG tablet Take 100 mg by mouth. 02/13/2020 Active omeprazole (priLOSEC) 40 MG capsule Take 40 mg by mouth Daily. 02/13/2020 Active levothyroxine (SYNTHROID, LEVOTHROID) 75 MCG tablet Take 75 mcg by mouth Daily. 02/13/2020 Active pregabalin (LYRICA) 75 MG capsule Take by mouth. Active meloxicam (MOBIC) 15 MG tablet Take 15 mg by mouth Daily. 02/13/2020 Active propranolol (INDERAL) 20 MG tablet Take 20 mg by mouth. 02/13/2020 Active lisinopril-hydro chlorothiazide (PRINZIDE,ZESTOR ETIC) 20-25 MG per tablet Take 0.5 tablets by mouth Daily. 02/13/2020 Active Aspirin Buf,CaCarb-MgCar b-MgO, 81 MG tablet Take 81 mg by mouth Daily. Active Biotin 5 MG tablet dispersible Take 1 tablet by mouth Daily. Active oxyCODONE-acetam inophen (PERCOCET) 5-325 MG per tablet TAKE 1 TABLET BY MOUTH 4 TIMES A DAY DNF BEFORE 03/31 03/31/2020 Active promethazine (PHENERGAN) 25 MG tablet TAKE 2 TABLETS BY MOUTH EVERY 12 HOURS NEEDED FOR NAUSEA 02/13/2020 Active Active Problems No known active problems Family History Medical History Relation Name Comments Cancer Father Heart disease Father Heart disease Mother Relation Name Status Comments Father Mother Social History Tobacco Use Types Packs/Day Years Used Date Smoking Tobacco: Never Smokeless Tobacco: Never Alcohol Use Standard Drinks/Week Comments Never 0 (1 standard drink = 0.6 oz pur e alcohol) AUDIT-C Answer Date Recorded Q1: How often do you have a drink containing alc ohol? Never 04/11/2020 Average Number of Drinks Not on file 020 Frequency of Binge Drinking Not on file 03/20 Abuse Screen Answer Date Recorded Unsafe at Home or Work/School Not on file Feels Threatened by Someone? Not on file 03/2023 Does Anyone Keep You from Co ntacting Others or Doint Things Outside the Home? Not on file 04/26/2023 Physical Sign of Abuse Present Not on file 1 Housing Stability Answer Date Recorded Current Living Arrangements Not on file 03/2023 Potentially Unsafe Housing Conditions Not on geena e 04/26/2023 Family and Community Support Answer Papo e Recorded Help with Day-to-Day Activities Not on file 04/26/2023 Lonely or Isolated Not on file 04/26/2023 Employment Answer Date Recorded Do you want help finding or keeping work or a norman b? Not on file 04/26/2023 Disabilities Answer Date Recorded Concentrating, Remembering, or Making Decisions Difficulty Not on file 04/26/2023 Doing Errands Independently Difficulty Not on fi le 04/26/2023 Education Answer Date Recorded Help with school or training? Not on file Preferred Language Not on file 04/26/2023 Comments Unknown Sex and Gender Information Value Date Recorded Sex Assigned at Not on file Legal Sex Female 11:58 AM EDT Gender Identity Not on file Sexual Orientation Not on file Last Filed Vital Signs Vital Sign Reading Time Taken Comments Blood Pressure - - Pulse - - Temperature 36.6 C (97.8 F) 04/11/2020 1:07 PM EDT Respiratory Rate - - Oxygen Saturation - - Inhaled Oxygen Concentration - - Weight 132 kg (292 lb) 04/11/2020 1:07 PM EDT Height 162.6 cm (5' 4 ) 04/11/2020 1:07 PM EDT Body Mass Index 50.12 04/11/2020 1:07 PM EDT Plan of Treatment Health Maintenance Due Date Last Done Comments DXA SCAN 1955 MAMMOGRAM 1995 COLOGUARD 12/09/2000 COLON CANCER SCREENING 5 YEA R SIGMOIDOSCOPY 12/09/2000 COLONOSCOPY 12/09/2000 COLORECTAL CANCER SCREENING 12/09/2000 CT COLONOGRAPHY 12/09/2000 FECAL OCCULT BLOOD TEST 12/09/2000 FIT Testing (1 year) 12/09/2000 ZOSTER VACCINE (1 of 2) 12/09/2005 TDAP/TD VACCINES (2 - Td or Tdap) 07/19/2018 009 Pneumococcal Vaccine 50+ (2 of 2 - PCV) 01/14/2020 01/13/2019, 07/19/2008 ANNUAL PHYSICAL 04/11/2020 HEPATITIS C SCREENING 04/11/2020 COVID-19 Vaccine (1 - 2023-2 5 season) 2024 INFLUENZA VACCINE 04/18/2025 04/26/2013, , 05/15/2011, Additional history exists HEMOGLOBIN A1C Discontinued 02/01/2020, 01/16, 08/02/2019, Additional history exists Insurance [facility] MEDICARE ADVANTAGE MEDICAID [facility] [facility] DUAL COMPLETE MEDIC Care Teams Technical Project Coordinator Relationship Specialty Start Date End Date Jose Cornejo DO [address] [place] [address] PCP - General Family Medicine 04/11/20
--- OUTSIDE RECORDS SUMMARY | 2025-03-05 14:25 | XMS_ITS | Encounter Summary ---
Author Organization [place] [address] Care Team Providers Care Talent Acquisition Operations Manager Name Role Phone Kory Rodriguez MD Unavailable Ar Vaca MD Primary Care Provider + Reason for Visit * Reason Comments Medication Refill Encounter Details Date Type Department Care Team (Late st Contact Info) Description 02/17/2025 Refill [facility] [address] [place] [address] Ar Vaca MD [address] [place] [address] Medication Refill Social History Tobacco [...] Date Recorded PHQ-2 Total Score 0 11/02/2024 [facility] [place] [facility] - Occupational Stress Questionnaire Answer [...] HOURS NEEDED. FOR NAUSEA 100 Tablet 1 02/19/2025 documented in this encounter Plan of Treatment [...] te promethazine (PHENERGAN) 25 mg Oral TabletIndications:Nausea TAKE 1 TABLET BY MOUTH EVERY 6 HOURS NEEDED. FOR NAUSEA 12/21/2024 02/19/2025 documented as of this encounter Additional Health Concerns Assessment Noted Time A fall risk assessment has been complete d for the patient 11/02/2024 3:19 PM EDT documented as of this encounter Care Teams Talent Acquisition Operations Manager Relationship Specialty Start Date End Date Ar Vaca MD [address] [place] [address] PCP - General Family Medicine 04/28/22 Kory Rodriguez MD [address] [facility] [address] [place] [address] Consulting Physician Internal Medicine-Nephrology 10/03/20 documented as of this encounter
--- OUTSIDE RECORDS SUMMARY | 2025-03-05 14:25 | XMS_ITS | Clinical Summary ---
Author Organization [facility] Address [address] [place] [address] Care Team Providers Care Neurology Manager Name Role Phone Pcp, No Primary Care Provider Caty Aguilar Unavailable Unavailable Dania Drake DMD Unavailable Allergies Active Allergy Reactions Criticality Noted [...] day. Active omeprazole (PriLOSEC) [address] capsuleIndicatijeevan ns:Gastroesophag eal Reflux Disease Take 1 capsule [...] Dental X-Ray: [facility] 1955 [facility]-Depression Screening 1955 [facility]-Infant/Child/Adol SDOH Screenings 1955 [id number] Vaccine (#1) 12/09/1960 [facility]- SDOH Screenings 12/09/1973 [...] 04/06/2018, 06/20/2014 Dental Oral Exam 11/24/2023 05/25/2023 [facility]-Medicare Annual Wellness (AWV) 08/19/2024 08/19/2023 [facility]-Influenza Vaccine [...] Relevant to Health Maintenance Insurance [employer] Care Teams Neurology Manager Relationship Specialty Start Date End Date Pcp, No [address] [place] [address] PCP - General Family Medicine 05/25/23 Caty Gonzalez Dental Student Dental Alodize Machine Operator 09/02/23 Dania Drake, DMD [address] [place] [address] Capacitor Repairer 02/02/25
--- OUTSIDE RECORDS SUMMARY | 2025-03-05 14:25 | XMS_ITS | Encounter Summary ---
Author Organization [place] [address] Care Team Providers Care Medical Physics Professor Name Role Phone Kory Rodriguez MD Unavailable [phone] Ar aVca MD Primary Care Provider + Reason for Visit * Reason Onset Date Comments Relaying Information 11/28/2024 regarding p t's pharmacy Encounter Details Date Type Department Care Team (Late st Contact Info) Description 11/28/2024 Telephone [facility] [address] [place] [address] Ar Vaca MD [address] [place] [address] Relaying Information (regarding pt's pharmacy) Social History Tobacco Use Types Packs/Day Years Used Date Smoking Tobacco: Never Smokeless Tobacco: Never Alcohol Use Standard Drinks/Week Comments No 0 (1 standard drink = 0.6 oz pur e alcohol) Overall Financial Resource Strain ([facility]) Answe r Date Recorded How hard is it for you to pa y for the very basics like food, housing, medical care, and heating? Not very hard 08/17/2024 PHQ-2 Answer Date Recorded PHQ-2 Total Score 0 11/02/2024 [facility] of Occupat ional Health - Occupational Stress [...] Information Relaying Information Who is Calling: Pharmacy [facility] [facility] and patient (Include pharmacy and caller's name) [...] documented as of this encounter Care Teams Medical Physics Professor Relationship Specialty Start Date End Date Ar Vaca MD [address] [place] [address] PCP - General Family Medicine 04/28/22 Kory Rodriguez MD [address] [facility] [address] [place] [address] Consulting Physician Internal Medicine-Nephrology 10/03/20 documented as of this encounter
--- OUTSIDE RECORDS SUMMARY | 2025-03-05 14:25 | XMS_ITS | Encounter Summary ---
Author Organization [place] [address] Care Team Providers Care Airport Operations Coordinator Name Role Phone Kory Rodriguez MD Unavailable [phone] Ar Vaca MD Primary Care Provider + Encounter Details Date Type Department Care Team (Late st Contact Info) Description 12/01/2024 Results Follow-Up [facility] [address] [place] [address] Ar Vaca MD [address] [place] [address] URINE CULTURE (NO STAIN) Social [...] Date Recorded PHQ-2 Total Score 0 11/02/2024 [facility] of Occupat community healthal Health - Occupational Stress Questionnaire Answer Date [...] documented as of this encounter Care Teams Airport Operations Coordinator Relationship Specialty Start Date End Date Ar Vaca MD [address] [place] [phone] PCP - General Family Medicine 04/28/22 Kory Rodriguez MD [address] [facility] [address] [place] [phone] Consulting Physician Internal Medicine-Nephrology 10/03/20 documented as of this encounter
--- OUTSIDE RECORDS SUMMARY | 2025-03-05 14:25 | XMS_ITS | Encounter Summary ---
Author Organization [place] [place] [address] Care Team Providers Care Care Technician Name Role Phone Kory Rodriguez MD Unavailable [phone] Ar Vaca MD Primary Care Provider + Encounter Details Date Type Department Care Team (Latest Contact Info) Description 12/01/2024 Results Follow-Up [facility] [address] [place] [address] Ar Vaca MD [address] [place] [address] HEMOGLOBIN A1C, COMPREHENSIVE METABOLIC PANEL, [...] Date Recorded PHQ-2 Total Score 0 11/02/2024 [facility] of Occupat ional Health - Occupational [...] documented as of this encounter Care Teams Care Technician Relationship Specialty Start Date End Date Ar Vaca MD [address] [place] [address] PCP - General Family Medicine 04/28/22 Kory Rodriguez MD [address] [facility] [address] [place] [address] Consulting Physician Internal Medicine-Nephrology 10/03/20 documented as of this encounter
--- NOTE | 2025-03-05 14:47 | EXP.PAIN.SOA ---
[facility] Disclaimer: The information contained in this section may have been updated after the patient was seen, as this information can be updated by other users. Medical History Sleep apnea Hypothyroidism Fibromyalgia High blood pressure Gout GERD (gastroesophageal reflux disease) Surgical History History of carpal tunnel repair Hx of tonsillectomy H/O total hysterectomy Family History Other Cancer Diabetes Heart attack Hypertension No significant family history Stroke Social History Smoking Status: Never smoker second hand exposure: No alcohol intake: never substance use type: denies use current occupational status: other Travel in the last 8 weeks?: None household members: spouse housing: house caffeine: Yes PM Subjective & Objective Subjective Subjective:: Patient is a pleasant 69-year-old female who presents today for her medication refill and follow-up. Today she rates her pain as 6 out of 10. She denies any new trauma or injury. Patient does state that she is just having generalized pain unrelated to any new falls or injuries. Patient is currently managed with Percocet 7.5 mg 4 times a day. She denies any side effects to this medication. She also denies any changes to her pharmacy. Her Shabbir has been reviewed and is appropriate. Review of Systems: General: No recent weight changes, no fever, no sleep disturbances Respiratory: No cough, no shortness of air, no recurring pulmonary infections Cardiovascular/peripheral vascular: No chest pain, no palpitations, no edema, no shortness of breath Gastrointestinal: No new onset incontinence, normal bowel movements reported Genitourinary: No new onset incontinence Musculoskeletal: Chronic back pain Psychiatric: [Normal mood/affect] Neurological: [Denies weakness in extremities], [denies balance issues] Pain at rest (0-10 scale): 6 Objective Objective:: Physical Exam: General: Alert and oriented x3, no acute distress, pleasant and cooperative Lungs: Respirations even and unlabored, symmetrical chest expansion Eyes: PERRL Musculoskeletal: Flexion and extension of lumbar [spine] somewhat guarded secondary to pain, [antalgic gait noted] Neurological: Speech clear, no gross sensory deficit Has patient had previous pain injection?: No Conservative treatment options previously tried: Home exercise plan Length of treatment: Longer than 12 weeks Meds Home Medications and Allergies Home Medications ?Medication ?Instructions ?Recorded ?Confirmed ?Type allopurinol 100 mg tablet 100 mg PO BID gout 90 days ##180 10/05/17 03/05/25 History levothyroxine 75 mcg tablet 1 tab PO DAILY thyroid 90 days ##90 10/05/17 03/05/25 History promethazine 25 mg tablet 25 mg PO NEEDED PRN Nausea 45 10/05/17 03/05/25 History days ##180 propranolol 20 mg tablet 20 mg PO DAILY bp 90 days ##180 10/05/17 03/05/25 History aspirin 81 mg tablet,delayed 81 mg PO DAILY unknown 12/12/19 03/05/25 History release biotin 5,000 mcg disintegrating 5,000 mcg PO DAILY Supplement 12/12/19 03/05/25 History tablet fluticasone propionate 50 2 spray intranasal DAILY allergies 06/06/20 03/05/25 Rx mcg/actuation nasal 30 days #16 mL spray,suspension lisinopril 10 mg tablet 10 mg PO DAILY BLOOD PRESSURE 05/26/23 03/05/25 History semaglutide 14 mg tablet (Rybelsus) 14 mg PO DAILY 05/26/23 03/05/25 History cyclobenzaprine 10 mg tablet 10 mg PO TID muscle pain #90 tabs 08/20/23 03/05/25 Rx hydrocortisone 0.5 % topical cream 1 applic topical BID PRN skin 12/28/24 03/05/25 Rx irritation #28.4 grams oxycodone-acetaminophen 7.5 mg-325 1 tab PO QID #120 tabs 01/29/25 03/05/25 Rx mg tablet (Percocet) New Prescriptions to Start Prescriptions: Allergies Allergy/AdvReac Type Severity Reaction Status Date / Time acetaminophen (From Allergy Unknown NA-NAUSEA/V Verified 10/28/23 13:03 TYLENOL-CODEINE #3) OMITING codeine (From Allergy Unknown NA-NAUSEA/V Verified 10/28/23 13:03 TYLENOL-CODEINE #3) OMITING erythromycin base Allergy Unknown NA-NAUSEA/V Verified 10/28/23 13:03 (ERYTHROMYCIN BASE) OMITING methadone (METHADONE) Allergy Unknown UNKNOWN Verified 10/28/23 13:03 morphine (MORPHINE) Allergy Unknown UNKNOWN Verified 10/28/23 13:03 Penicillins (PENICILLINS) Allergy Unknown NA-NAUSEA/V Verified 10/28/23 13:03 OMITING Sulfa (Sulfonamide Allergy Unknown NA-NAUSEA/V Verified 10/28/23 13:03 Antibiotics) (SULFA OMITING (SULFONAMIDE ANTIBIOTICS)) Assessment and Plan *Assessment and plan (1) Lumbar radiculopathy: Status: Acute Category: Medical Code(s): M54.16 - Radiculopathy, lumbar region (2) Cervical radiculopathy: Status: Acute Category: Medical Code(s): M54.12 - Radiculopathy, cervical region (3) Degenerative disc disease, lumbar: Status: Acute Category: Medical Code(s): M51.369 - Other intervertebral disc degeneration, lumbar region without mention of lumbar back pain or lower extremity pain (4) Degenerative disc disease, cervical: Status: Acute Category: Medical Code(s): M50.30 - Other cervical disc degeneration, unspecified cervical region Plan I will refill her Percocet and provide a 1 month supply of this medication. Patient will return to clinic in 1 month for reevaluation of symptoms and plan of care. Risks and benefits of the medication have been explained in detail to the patient. The patient does understand the risk of dependence on the medication when given over a prolonged period. Patient has been advised of risks of oversedation with the prescribed medication. Narcan has been offered to the paitent in the event of oversedation. Patient has been advised that a family member should also be educated regarding administration of Narcan. The patient has been advised to consult with his/her primary care provider and pharmacist regarding drug-drug interaction of medications currently prescribed. Patient has been prescribed a controlled substance after being counseled on the medication, medication safety, and possible side effects. Opioid contract was reviewed and signed by the patient, and that they have agreed to all of the terms set forth by our compliance program. A UDS is needed to verify patient's compliance with our office pain contract. This is ordered based off specific treatments related to chronic pain with the potential to abuse certain medications. Patient has been instructed to contact the clinic with any concerns before the next appointment. Dr. Valderrama has reviewed this note and agrees with this plan of care. This note was dictated using voice recognition software and make contain errors or omissions.
== END 2025-03-05 23:59 | disposition home or self-care (01) ==
PROVIDERS: PCP Family Medicine; Visit Provider Nurse Practitioner Family
DX: M51.26 Other intervertebral disc displacement, lumbar region (principal); M50.120 Mid-cervical disc disorder, unspecified level; Z79.891 Long term (current) use of opiate analgesic